=== PATIENT | male | born 1945 | race African-American/Black ===

== ENCOUNTER 2020-09-13 19:13 | Emergency (ER) | payer MEDICARE ==
[~2020-09-13] VITALS: Ht 182.9 cm; Wt 68.0 kg
--- NOTE | 2020-09-13 19:35 | NUR ---
Pt brought in by EMS. Pt's cousin called EMS, reports pt has had weakness. Pt c/o being unable to eat but reports he feels like he could eat now. Pt also complains of weakness, denies pain. Pt AAO x4.
[2020-09-13 19:57] VITALS: BP 124/81
[2020-09-13 20:50] LABS: HEMATOCRIT 25.7 % (42.0-52.0); HEMOGLOBIN 7.9 G/DL (14.2-18.0); MEAN CORPUSCULAR VOLUME 108 FL (80-99); PLATELET COUNT 76 K/UL (150-450); RED BLOOD COUNT 2.39 M/UL (4.70-6.10); RED CELL DISTRIBUTION WIDTH 16.1 % (11.6-14.8); WHITE BLOOD COUNT 3.8 K/UL (4.8-10.8)
[2020-09-13 21:01] LABS: INR 1.4 (0.9-1.1)
[2020-09-13 21:09] LABS: CREATININE 2.6 MG/DL (0.55-1.30); POTASSIUM 4.2 MMOL/L (3.5-5.1)
[2020-09-13 21:25] LABS: ALBUMIN 2.6 G/DL (3.4-5.0); ALBUMIN/GLOBULIN RATIO 0.7 (1.0-2.7); BILIRUBIN,TOTAL 1.8 MG/DL (0.2-1.0); CKMB 1.1 NG/ML (0.0-3.6)
[2020-09-13 21:26] LABS: BILIRUBIN,DIRECT 0.9 MG/DL (0.0-0.3)
[2020-09-13 22:29] LABS: BILIRUBIN, URINE NEGATIVE (NEGATIVE); GLUCOSE, URINE (UA) NEGATIVE (NEGATIVE); KETONES,URINE 1+ (NEGATIVE); LEUKOCYTE ESTERASE ,URINE 1+ (NEGATIVE); NITRITE,URINE NEGATIVE (NEGATIVE); PH,URINE 5 (4.5-8.0); PROTEIN,URINE NEGATIVE (NEGATIVE); UROBILINOGEN,URINE NORMAL MG/DL (0.0-1.0)
[2020-09-13 22:35] VITALS: BP_SYST 119; BP_SYST 143; BP_DIAS 69; BP_DIAS 88
[2020-09-13 22:46] LABS: APPEARANCE,URINE SLIGHTLY CLOUDY; COLOR,URINE YELLOW
--- NOTE | 2020-09-13 23:03 | Emergency Room Report ---
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 COVID-19 Screening: Negative COVID-19 COVID-19 Testing Source: na Nursing Documentation-PMH Hx Hypertension: Yes Physical Exam Vital Signs Date Time Temp Pulse Resp B/P (MAP) Pulse Ox O2 Delivery O2 Flow Rate FiO2 09/13/20 19:06 99.0 114 16 106/66 (79) 98 Room Air Medical Decision Making Diagnostic Impression: Primary Impression: Pancytopenia Additional Impressions: Failure to thrive Renal failure Hypernatremia ER Course This patient was evaluated in the context of the global COVID-19 pandemic, which necessitated consideration that the patient might be at risk for infection with the [id number] virus that causes COVID-19. Institutional protocols and algorithms that pertain to the evaluation of patients at risk for COVID-19 and the state of rapid change based on information released by multiple regulatory bodies including the CDC and federal and state organizations. These policies and algorithms were followed during the patient's care in the ED. Laboratory Tests Test 09/13/20 20:35 09/13/20 21:58 White Blood Count 3.8 K/UL (4.8-10.8) L Red Blood Count 2.39 M/UL (4.70-6.10) L Hemoglobin 7.9 G/DL (14.2-18.0) L Hematocrit 25.7 % (42.0-52.0) L Mean Corpuscular Volume 108 FL (80-99) H Mean Corpuscular Hemoglobin 33.0 PG (27.0-31.0) H Mean Corpuscular Hemoglobin Concent 30.7 G/DL (32.0-36.0) L Red Cell Distribution Width 16.1 % (11.6-14.8) H Platelet Count 76 K/UL (150-450) L Mean Platelet Volume 8.9 FL (6.5-10.1) Neutrophils (%) (Auto) % (45.0-75.0) Lymphocytes (%) (Auto) % (20.0-45.0) Monocytes (%) (Auto) % (1.0-10.0) Eosinophils (%) (Auto) % (0.0-3.0) Basophils (%) (Auto) % (0.0-2.0) Differential Total Cells Counted 100 Neutrophils % (Manual) 66 % (45-75) Lymphocytes % (Manual) 30 % (20-45) Monocytes % (Manual) 2 % (1-10) Eosinophils % (Manual) 2 % (0-3) Basophils % (Manual) 0 % (0-2) Band Neutrophils 0 % (0-8) Platelet Estimate Decreased L Platelet Morphology Normal Hypochromasia 1+ Anisocytosis 1+ Macrocytosis 1+ Prothrombin Time 14.6 SEC (9.30-11.50) H Prothrombin Time INR 1.4 (0.9-1.1) H Activated Partial Thromboplast Time 31 SEC (23-33) D-Dimer 1.18 mg/L FEU (0.00-0.49) H Sodium Level 150 MMOL/L (136-145) H Potassium Level 4.2 MMOL/L (3.5-5.1) Chloride Level 117 MMOL/L (98-107) H Carbon Dioxide Level 24 MMOL/L (21-32) Anion Gap 9 mmol/L (5-15) Blood Urea Nitrogen 30 mg/dL (7-18) H Creatinine 2.6 MG/DL (0.55-1.30) H Estimated Glomerular Filtration Rate 29.2 mL/min (>60) Glucose Level 120 MG/DL (74-106) H Lactic Acid Level 1.50 mmol/L (0.4-2.0) Calcium Level 9.0 MG/DL (8.5-10.1) Ferritin 1433 NG/ML (8-388) H Total Bilirubin 1.8 MG/DL (0.2-1.0) H Direct Bilirubin 0.9 MG/DL (0.0-0.3) H Aspartate Amino Transferase (AST) 42 U/L (15-37) H Alanine Aminotransferase (ALT) 52 U/L (12-78) Alkaline Phosphatase 89 U/L (46-116) Lactate Dehydrogenase 138 U/L (81-234) Total Creatine Kinase 37 U/L (26-308) Creatine Kinase MB 1.1 NG/ML (0.0-3.6) Creatine Kinase MB Relative Index 2.9 Troponin I 0.021 ng/mL (0.000-0.056) C-Reactive Protein, Quantitative 0.8 mg/dL (0.00-0.90) Pro-B-Type Natriuretic Peptide 864 pg/mL (0-125) H Total Protein 6.1 G/DL (6.4-8.2) L Albumin 2.6 G/DL (3.4-5.0) L Globulin 3.5 g/dL Albumin/Globulin Ratio 0.7 (1.0-2.7) L Lipase 26 U/L (73-393) L Urine Color Yellow Urine Appearance Slightly cloudy Urine pH 5 (4.5-8.0) Urine Specific [place] 1.020 (1.005-1.035) Urine Protein Negative (NEGATIVE) Urine Glucose (UA) Negative (NEGATIVE) Urine Ketones 1+ (NEGATIVE) H Urine Blood Negative (NEGATIVE) Urine Nitrite Negative (NEGATIVE) Urine Bilirubin Negative (NEGATIVE) Urine Urobilinogen Normal MG/DL (0.0-1.0) Urine Leukocyte Esterase 1+ (NEGATIVE) H Urine RBC 0 /HPF (0 - 0) Urine WBC 5-10 /HPF (0 - 0) H Urine Squamous Epithelial Cells Occasional /LPF Urine Bacteria Few /HPF (NONE) EKG Diagnostic Results Rate: tachycardiac Rhythm: other - s.tachycardia ST Segments: no acute changes Rhythm Strip Diag. Results EP Interpretation: yes Rate: 110's Rhythm: no PVC's, no ectopy, other - S.tachycardia Chest X-Ray Diagnostic Results Chest X-Ray Diagnostic Results : Chest X-Ray Ordered: Yes # of Views/Limited/Complete: 1 View Indication: Other EP Interpretation: Yes Interpretation: no consolidation, no pneumothorax, other - ? multiple nodules Impression: No acute disease Electronically Signed by: Zayra Ji DO Last Vital Signs Date Time Temp Pulse Resp B/P (MAP) Pulse Ox O2 Delivery O2 Flow Rate FiO2 09/13/20 22:35 99.0 106 13 143/88 100 Room Air Referrals: [facility] (PCP) Zayra Ji DO Sep 13, 2020 23:03
[2020-09-13 23:27] VITALS: BP 129/88
--- NOTE | 2020-09-13 23:27 | NUR ---
ED Nurse Note: Pt was provided with a juice. Pt has no new needs at this time.
--- NOTE | 2020-09-13 23:36 | NUR ---
ED Nurse Note: Jessica Banks [phone] - pts cousin
--- NOTE | 2020-09-14 01:26 | NUR ---
ED Nurse Note: TFR INFO: [facility] DR LUPE MACKEY RM: TELE [id number] NURSE # [phone] ALS TRANSFER: ETA 2AM
[2020-09-14 01:52] VITALS: BP 124/85
--- NOTE | 2020-09-14 01:53 | NUR ---
ED Nurse Note: Pt is sleeping, responds to verbal commands, no new needs identified at this time. Attempted to call report to [facility], no answer.
--- NOTE | 2020-09-14 02:30 | NUR ---
ED Nurse Note: Called [facility] to give report at [phone] (3rd time to call) and no answer. Called [facility] and spoke to Myron to report incident. Will callback for report.
--- NOTE | 2020-09-14 02:34 | NUR ---
ER DISCHARGE NOTE: EMS arrived to get pt. Unable to reach [facility] for report. Report relayed to EMS. [facility] to call back for report.
[2020-09-14 02:42] VITALS: BP 112/81
--- NOTE | 2020-09-14 03:00 | NUR ---
ED Nurse Note: Spoke to KIRBY Martinez at [facility] for report.
--- NOTE | 2020-09-14 16:17 | Cardiology Report ---
APPROVED REPORT EKG Measurement Heart [id number] MD [id number] <Conclusion> Sinus rhythm with premature atrial complexes Nonspecific T wave abnormality Abnormal ECG
--- NOTE | 2020-09-14 16:49 | Diagnostic Imaging Report ---
Indication: Shortness of breath Technique: One view of the chest Comparison: none Findings: There is atelectasis in the left infrahilar region. There is a calcified nodule right lung base. Lungs and pleural spaces otherwise clear. The heart size is normal. Impression: Left basilar atelectasis. No acute process otherwise Evidence of old granulomatous disease
== END 2020-09-14 02:34 | disposition short-term general hospital (02) ==
LOC: EDBD 19:13 → EMR 20:31
DX: D61.818 Other pancytopenia (principal); R62.7 Adult failure to thrive; J96.90 Respiratory failure, unspecified, unspecified whether with hypoxia or hypercapnia; E87.0 Hyperosmolality and hypernatremia; I10 Essential (primary) hypertension; R00.0 Tachycardia, unspecified
CPT/HCPCS: 36415; 71045; 80053; 81003; 82248; 82550; 82553; 82728; 83605; 83615; 83690; 83880; 84484; 85007; 85025; 85379; 85610; 85730; 86140; 87040; 93005; 96360; 99284; U0004

== ENCOUNTER 2020-09-29 22:05 | Inpatient (IN) | payer MEDICARE ==
[~2020-09-29] VITALS: Ht 182.9 cm; Wt 74.8 kg
--- NOTE | 2020-09-29 22:10 | NUR ---
ED Nurse Note: Pte brought to ED rescue 26 , from the [facility] , with the c/o ALOC, per EMS pte last known well time 1600. The facility called 911 due to pte desatted to 80% on RA. At time of pte arrival, pte was being Ambu-bagged due to agonal breathing. Pte placed in property assessment monitor and was found to be in respiratory arrest . see code blue sheet.
--- NOTE | 2020-09-29 22:12 | NUR ---
ED Nurse Note: Pte intubated 7.5 tube 25 cm medial site
[2020-09-29] MEDS ORDERED: Levophed 4mg/4mL Inj IV ONE (22:14)
[2020-09-29 22:40] VITALS: BP 156/88
--- NOTE | 2020-09-29 22:40 | Emergency Room Report ---
History of Present Illness General Chief Complaint: Dyspnea/Respdistress Source: EMS Present Illness HPI 75-year-old male with past medical history of protein calorie malnutrition, thalassemia, hypertension, chronic pancreatitis, dyslipidemia, atherosclerosis, GERD, acquired complex renal cyst, peripheral neuropathy, history of adenomatous colonic polyps, major depression presents from [facility] for altered mental status. Patient has GCS of 8, agonal respirations and is being bagged by EMS. No pulse found on arrival therefore history limited 2/2 clinical condition. According to staff, the patient was noted to be altered beginning at 4 PM however there was a delay in transport to the emergency department. According to paperwork, he had been admitted to the SNF for rehab after BMBx for pancytopenia and failure to thrive/anorexia/weight loss. POLST FORM NOTED DATING 09/16/20 FOR DNR/DNI BUT NO MD SIGNATURE, THEREFORE INCOMPLETE AND INVALID. The patient's symptoms were gradual onset, severity was severe, duration since 4pm . Quality: Unable to obtain Past medical history: protein calorie malnutrition, thalassemia, hypertension, chronic pancreatitis, dyslipidemia, atherosclerosis, GERD, acquired complex renal cyst, peripheral neuropathy, history of adenomatous colonic polyps, major depression Past surgical history: UTO Smoking: UTO Alcohol use: UTO Drug use: UTO Review of systems: UTO 2/2 CLINICAL STATUS 14 point Review of Systems is otherwise negative except per HPI Physical Exam: GENERAL: Severe distress, agonal respirations, unresponsive GCS 8 EYES: Pupils unreactive. Conjunctiva clear. ENT: External nose and ear appear normal. Oropharynx clear. Head atraumatic. NECK: No thyromegaly. No midline tenderness. LUNGS: Agonal respirations. Coarse breath sounds bilaterally. CARDIAC: No detectable pulse. ABDOMEN: Soft, nontender, and nondistended. No rebound/guarding. No hepatosplenomegaly. No palpable mass. Soiled diaper. No melena or hematochezia visible MSK: Poor muscle tone, contractures with rigidity in extremities. Extremities without asymmetric deformity or swelling. NEUROLOGIC: Obtunded Does not follow commands for motor and sensory exam. No truncal ataxia. GCS 2-4-2, protecting airway, intact gag reflex. SKIN: Warm and dry. No cyanosis or urticaria present. - COORDINATION OF CARE Case was discussed with: Patient , Patient's physician Any labs and imaging that were ordered were interpreted as part of the medical decision making: Medical Decision Making/Plan: Differential diagnosis includes sepsis / severe sepsis /septic shock , cellulitis UTI, pneumonia , viral syndrome, gastroenteritis, emergent abdom inal infection, among others. Patient arrived in severe distress, GCS 8, agonal respirations, hypoxic at Sp02 70% with thready pulse. He immediately went pulseless on transfer from [facility] to [facility], therefore high quality CPR was initiated and performed via ACLS guidelines. On the monitor tech, patient was noted to be in pulseless V. tach. He achieved ROSC after the administration of amiodarone, epinephrine, bicarb, calcium, magnesium. Please see nursing documentation for full list of meds given. Patient was intubated with RSI (etomidate, rocuronium) for respiratory failure, and started on levophed drip via R IJ central line for vasopressor support. Propofol gtt was used for sedation. Bedside ECHO showed depressed EF and ventricular ectopy. No radiographic evidence of tamponade or pericardial effusion. EKG showed sinus tachycardia. Labs showed lactic/metabolic acidosis, renal failure, and pancytopenia. Patient also noted to have BNP 2290 but trop negative x 1. CXR showed bibasilar atx vs effusions vs PNA. COVID rapid antigen was negative. Sepsis bundle initiated on arrival. Blood cultures, lactate drawn. Lactate was grossly elevated , patient was not given 30 cc/kg IV fluids by bolus due to refusal and hx of ESRD. Empiric antibiotics were started. Patient will be admitted to the hospital for further care and evaluation. Spoke with Dr. Rosenbaum [facility] authorization #[id number] I spoke with Dr. Hutton, and reviewed the patients presentation, workup, results, and treatment. They will admit the patient for further care and evaluation, and assume care of the patient at this time. Sepsis re-eval at 0000: Better signs of perfusion. 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 Time is exclusive of separately billable procedures. Time includes: direct patient care, continuous monitoring and multiple patient reassessment, coordination of patient care, review of patient's medical records, medical consultation, family consultation regarding treatment decisions and documentation of patient care. Ultrasound Ultrasound : Consent: Emergent Ultrasound: normal Patient Tolerated: Well Complications: None Central Line Progress Central Line Placement by me: Patient consented, sterilely draped, full prep, gown, glove, mask, time out performed. Maximal sterile barrier technique used. Anesthesia: 1% lidocaine locally Location: Right internal jugular Device: Multiple lumen Technique: Seldinger technique. Secured with suture. Results: Venous return from all ports with easy saline flush. No complications. Compl : None Guide wire was retrieved and disposed of. ED Procedural Ultrasound by me: Central line placed by me using concurrent ultrasound guidance. Real time image archived in the medical record confirms vascular anatomy. CPR/Code Blue CPR/Code Blue Narrative Cardiopulmonary Resuscitation by me: See code documentation for specific details. ACLS and BLS were performed with high quality chest compressions and minimal interruptions. Any reversible causes were assessed and treated. Indication: Pulseless/CODE BLUE Informed consent: Patient unable to consent and no DNR status on record Procedure: Cardiac compressions were performed by staff in order to sustain blood flow under my direct supervision. The patient was ventilated and oxygena sharri. The patient received appropriate ACLS measures and they were repeated as necessary. Patient noted to be in pulseless vtach on the tele monitor. Gave epi, bicarb, calcium, Mg, amio with +ROSC. Bedside ECHO showed ++Vtach. No pericardial effusion or tamponade Findings: Patient had ++ return of spontaneous circulation Intubation Progress Procedure Note: Endotracheal Intubation by me: Pre assessment performed. See preceding note for details. Pre-oxygenation performed with 100% oxygen RSI: Performed w/o complication or hypoxic events. Medications as ordered. Emergency Endotracheal Intubation: Consent unable to be obtained due to emergent nature of procedure and airway assessment this patient was prepared for end otracheal intubation with preoxygenation and airway positioning. The patient underwent rapid sequence induction and endotracheal intubation utilizing direct visualization laryngoscopy. The endotracheal tube was placed between the vocal cords and placement was confirmed with fogging of the tube, end title CO2, and equal bilateral chest rise as well as absence of borborygmi over the epigastrium. Chest x-ray was obtained for final confirmation. There were no complications. Blade: VL 4 ET Tube: 7.5 cm Depth: 23 cm at the lip Complications: No hypoxic events or bradycardia Intubation confirmed by colorimetric CO2, equal breath sounds, quiet over the stomach. Intubated with full C spine precautions, with the assistance of juvenile justice officer. Medical Decision Making Diagnostic Impression: Primary Impression: Respiratory arrest Additional Impressions: Cardiopulmonary arrest Septic shock Renal failure Pancytopenia Lactic acidosis Pneumonia Respiratory failure Hypoxia Failure to thrive EKG Diagnostic Results Troponin ordered: Yes When was troponin ordered?: Sep 30, 2020 BHARGAVI Scribe Text 12-lead EKG (interpreted by ) Time: 1921 Indication: Rhythm analysis Tracing visualized and Interpreted by me. Rhythm: Atrial fibrillation Rate: 126 bpm QTc: 443 A. fib RVR Morphology: No_significant_ST_elevations_or_depressions, No STEMI Impression: Atrial fibrillation with RVR. ST depressions in inferior leads, V5 and V6 Rhythm Strip Diag. Results Rhythm Strip Time: 00:23 EP Interpretation: yes Rate: 89 Rhythm: NSR, no PVC's, no ectopy Chest X-Ray Diagnostic Results Chest X-Ray Diagnostic Results : PA Scribe Text Chest X-Ray: Views: [ 1 ] view(s) Indication: Cardiopulmonary arrest Findings: Normal heart size. Mediastinum normal. Bibasilar infiltrate. Impression: Bibasilar atelectasis versus pneumonia. Right IJ catheter. No pneumothorax. ET tube positioned above the cathy. The X-ray(s) were independently viewed and interpreted contemporaneously Electronically signed by Erica helton DO Last Vital Signs Date Time Temp Pulse Resp B/P (MAP) Pulse Ox O2 Delivery O2 Flow Rate FiO2 09/29/20 22:09 118 12 103/64 (77) 100 Ambu-Bag Disposition: ADMITTED INPATIENT Admit Decision Time: 22:50 Condition: Stable Erica Ratliff D.O. Sep 29, 2020 22:40
[2020-09-29] MEDS ORDERED: Vancomycin 1 GM in NS 275 ML IV ONE (22:45)
[2020-09-29] MEDS ORDERED: Cefepime HCl 2 GM in NS 110 ML IV ONE (22:45)
[2020-09-29 23:10] VITALS: BP 119/82
[2020-09-29 23:21] LABS: ANION GAP 14 mmol/L (5-15); BLOOD UREA NITROGEN 45 mg/dL (7-18); CALCIUM 10.6 MG/DL (8.5-10.1); CARBON DIOXIDE 17 MMOL/L (21-32); CHLORIDE 111 MMOL/L (98-107); CREATININE 5.7 MG/DL (0.55-1.30); POTASSIUM 4.3 MMOL/L (3.5-5.1); SODIUM 142 MMOL/L (136-145)
[2020-09-29 23:23] LABS: INR 1.7 (0.9-1.1)
[2020-09-29 23:36] LABS: HEMOGLOBIN 10.2 G/DL (14.2-18.0); MEAN CORPUSCULAR VOLUME 95 FL (80-99); PLATELET COUNT 70 K/UL (150-450); RED BLOOD COUNT 3.35 M/UL (4.70-6.10); RED CELL DISTRIBUTION WIDTH 17.9 % (11.6-14.8); WHITE BLOOD COUNT 10.5 K/UL (4.8-10.8)
[2020-09-29 23:40] LABS: ALANINE AMINOTRANSFERASE 30 U/L (12-78); ALBUMIN 1.9 G/DL (3.4-5.0); ALBUMIN/GLOBULIN RATIO 0.5 (1.0-2.7); ALKALINE PHOSPHATASE 98 U/L (46-116); ASPARTATE AMINO TRANSFERASE 32 U/L (15-37); BILIRUBIN,TOTAL 0.8 MG/DL (0.2-1.0); CREATINE KINASE 49 U/L (26-308)
[2020-09-29] MEDS: propofoL 1,000mg/100ml 100 ML IV SCH (23:45)
[2020-09-30] VITALS (45 sets, daily range): BP systolic 79–180; BP diastolic 40–88
--- NOTE | 2020-09-30 00:15 | NUR ---
ED Nurse Note: received order for propofol however patient still unresponsive at this time due to pain, per ERMD. no need to transfuse propofol
[2020-09-30 00:18] LABS: FERRITIN > 2000 NG/ML (8-388)
--- NOTE | 2020-09-30 02:00 | NUR ---
TRANSFER TO FLOOR: Patient transferred to ICU as ordered, per Dr. Hutton Report given to [facility] OR[facility]
--- NOTE | 2020-09-30 02:15 | NUR ---
NURSE NOTES: Patient transferred from ER to ICU. Patient noted to be orally intubated 7.5/24 cm at lower lip line. Patient mechanically ventilated AC 16/500tv, 70% Fio2 and peep of 5. HR on the monitor is 96 NSR with PVC's. Right IJ TLC noted with Levophed gtt infusing at 22mcg/min and Vanco abx. SpO2 at 96%. Patient is non-responsive to painful stimuli, pupils non-reactive to light. Airborne precautions noted. left AC 18g noted SL. Skin noted to be intact. Admission orders received from Dr. Hutton.
[2020-09-30] MEDS ORDERED: Acetaminophen 650mg/20.3ml NG PRN (02:30)
[2020-09-30] MEDS: D5 1/2NS 1,000 ML IV SCH ×3 (03:21→17:00)
[2020-09-30] MEDS ORDERED: Levophed 4mg/4mL Inj IV ONE (03:26)
--- NOTE | 2020-09-30 04:00 | NUR ---
NURSE NOTES: complete bed bath core care and back care done
[2020-09-30] MEDS ORDERED: Heparin 5000 units/ml inj SUBQ SCH (06:00)
[2020-09-30] MEDS ORDERED: LATANOPROST2.5 ML BOTH EYES (06:19)
[2020-09-30] MEDS ORDERED: SENNA PLUS 8.61 EACH PO (06:19)
[2020-09-30] MEDS ORDERED: SIMVASTATIN20 MG ORAL (06:19)
[2020-09-30] MEDS ORDERED: OMEPRAZOLE20 M2 ORAL (06:19)
[2020-09-30] MEDS ORDERED: DOCUSATE SODIU250 MG ORAL (06:19)
[2020-09-30] MEDS ORDERED: ACETAMINOPHEN325 M1 ORAL (06:19)
[2020-09-30] MEDS ORDERED: FOLIC ACID1 MG ORAL (06:19)
[2020-09-30 06:22] LABS: HEMATOCRIT 38.4 % (42.0-52.0); HEMOGLOBIN 11.8 G/DL (14.2-18.0); MEAN CORPUSCULAR VOLUME 99 FL (80-99); PLATELET COUNT 76 K/UL (150-450); RED BLOOD COUNT 3.87 M/UL (4.70-6.10); WHITE BLOOD COUNT 11.3 K/UL (4.8-10.8)
[2020-09-30 06:45] LABS: ALBUMIN 2.1 G/DL (3.4-5.0); ALBUMIN/GLOBULIN RATIO 0.6 (1.0-2.7); BILIRUBIN,TOTAL 1.3 MG/DL (0.2-1.0); CALCIUM 9.8 MG/DL (8.5-10.1); CREATININE 6.1 MG/DL (0.55-1.30); PHOSPHORUS 6.1 MG/DL (2.5-4.9)
[2020-09-30 06:46] LABS: BILIRUBIN,DIRECT 0.7 MG/DL (0.0-0.3)
--- NOTE | 2020-09-30 07:30 | NUR ---
NURSE HAND-OFF REPORT: Latest Vital Signs: Temperature 93.5 , Pulse 81 , B/P 106 /73 , Respiratory Rate 24 , O2 SAT 99 , Mechanical Ventilator, O2 Flow Rate 100.0 . Vital Sign Comment: EKG Rhythm: Sinus Rhythm Rhythm change?: N MD Notified?: - MD Response: Latest Carty Fall Score: 50 Fall Risk: High Risk Safety Measures: Call light Within Reach, Bed Alarm Zone 2, Side Rails Side Rails x2, Bed position Low and Locked. Fall Precautions: Yellow Socks Yellow Gown Door Sign Patient Fall Education Report given to kwaku clement using sbar .
--- NOTE | 2020-09-30 08:53 | NUR ---
RD ASSESSMENT & RECOMMENDATIONS SEE CARE ACTIVITY FOR COMPLETE ASSESSMENT DAILY ESTIMATED NEEDS: Needs based on Critical care 74.2kg 22-28 kcals/kg 5202-4166 total kcals 1.2-2 g protein/kg 89-148 g total protein 25-30 mL/kg 7215-9777 total fluid mLs NUTRITION DIAGNOSIS: Swallowing difficulty r/t respiratory arrest as evidenced by pt intubated, on pressor support, ICU status. ENTERAL NUTRITION RECOMMENDATIONS: As able NEPRO @40ml/hr x24 hrs to provide 960ml, 1728 kcal, 78g pro, 698ml free H2O -When stable for feeds rec renal formula at this time d/t increasing K and phos. -obtain GI access, initiate Nepro @20ml/hr for 6 hrs, advance as tolerated 10ml/hr 2q4-6 hrs to goal -When tolerating TF at goal, add prosource 1 pack BID to better meet est pro needs. -Flush per HOB over 30 degrees. ----> If hemodynamically unstable, rec trophic feeds of Nepro @10ml/hr to maintain gut integrity. ADDITIONAL RECOMMENDATIONS: 1) F/up w/ H&P 2) Maintain D5 IV hydration while NPO 3) Maintain calibrated bed scale wts 4) Non oral feeds when stable
--- NOTE | 2020-09-30 08:59 | Consultation ---
History of Present Illness General Date patient seen: Sep 30, 2020 Chief Complaint: Dyspnea/Respdistress Reason for Consultation: Sepsis Present Illness HPI Mr. Vargas is a 75 yo male with PMHx of failure to thrive, HTN, thalassemia, pancytopenia, HLD, Depression who was sent to the ED from his [facility] for [facility]. Per ED noted they noted that he had become encephalopathic about 4pm on the day of admit. In the ED he had agonal breathing and was intubated. He was afebrile with no leukocytosis. CXR showed LLL atelectasis and he had lactate of 7. He had a code blue in the ICU as he was found pulseless. Today his WBCS are 11, he is in the ICU on Levophed. ID was consulted for sepsis PMHx/PSHx Failure to thrive HTN Thalassemia Pancytopenia HLD Depression Adenomatous colonic polyps SocHx Lives in a chcf FamHx Unable to obtain Allergies: Coded Allergies: No Known Allergies (Unverified , 09/13/20) Medication History Scheduled Docusate Sodium* (Docusate Sodium*), 250 MG ORAL TWICE A DAY, (Reported) Folic Acid* (Folic Acid*), 1 MG ORAL DAILY, (Reported) Latanoprost* (Xalatan*), 1 DROP BOTH EYES BEDTIME, (Reported) Omeprazole (Omeprazole), 20 MG ORAL DAILY, (Reported) Simvastatin (Zocor), 20 MG ORAL BEDTIME, (Reported) Scheduled PRN Acetaminophen* (Acetaminophen 325MG Tablet*), 650 MG ORAL Q4H PRN for , (Reported) Miscellaneous Medications Sennosides/Docusate Sodium (Senna Plus 8.6-50 mg Tablet), 1 EACH PO, (Reported) Patient History Healthcare decision maker Resuscitation status Advanced Directive on File Review of Systems ROS Narrative Unable to obtain Physical Exam Last 24 Hour Vital Signs Date Time Temp Pulse Resp B/P (MAP) Pulse Ox O2 Delivery O2 Flow Rate FiO2 09/30/20 07:45 82 27 103/72 (82) 98 09/30/20 07:31 86 27 60 09/30/20 07:30 83 26 109/76 (87) 99 09/30/20 07:15 81 25 106/73 (84) 99 09/30/20 07:00 106/73 09/30/20 07:00 81 25 102/66 (78) 99 09/30/20 06:45 81 24 105/77 (86) 99 09/30/20 06:30 82 20 09/30/20 06:30 80 24 104/76 (85) 99 09/30/20 06:15 79 24 110/79 (89) 99 09/30/20 06:00 81 24 115/79 (91) 99 09/30/20 06:00 105/56 09/30/20 05:45 80 23 107/79 (88) 99 09/30/20 05:30 80 23 107/81 (90) 99 09/30/20 05:15 93.5 79 23 106/76 (86) 99 09/30/20 05:00 106/76 09/30/20 05:00 79 23 115/79 (91) 99 09/30/20 04:49 82 23 60 09/30/20 04:30 81 22 118/85 (96) 99 09/30/20 04:15 81 20 108/82 (91) 100 09/30/20 04:00 Mechanical Ventilator 100.0 09/30/20 04:00 81 19 113/80 (91) 100 09/30/20 04:00 108/82 09/30/20 03:45 82 18 119/84 (96) 94 09/30/20 03:30 81 19 117/83 (94) 85 09/30/20 03:15 82 18 122/85 (97) 93 09/30/20 03:00 81 18 127/88 (101) 95 09/30/20 03:00 122/85 09/30/20 02:49 Mechanical Ventilator 100.0 09/30/20 02:45 82 18 117/82 (94) 94 09/30/20 02:35 83 16 100 Mechanical Ventilator 70 09/30/20 02:30 84 19 106/72 (83) 95 09/30/20 02:30 117/83 09/30/20 02:28 83 16 70 09/30/20 02:24 91.3 84 18 150/69 (96) 99 09/30/20 02:15 85 09/30/20 02:15 70 09/30/20 02:00 97.1 88 18 116/88 100 Mechanical Ventilator 70 09/30/20 01:00 105/62 2/25/21 00:46 88 16 70 09/29/20 23:54 98/68 09/29/20 23:49 80 09/29/20 23:15 107/84 09/29/20 23:10 96.8 100 16 119/82 100 Mechanical Ventilator 100 09/29/20 23:10 97.1 16 100 Mechanical Ventilator 09/29/20 23:00 119/82 09/29/20 22:45 140/80 09/29/20 22:40 156/88 09/29/20 22:40 96.8 115 16 156/88 100 Mechanical Ventilator 100 09/29/20 22:35 160/109 09/29/20 22:32 120 16 100 09/29/20 22:30 62/42 09/29/20 22:10 118 12 Ambu-Bag 09/29/20 22:09 118 12 103/64 (77) 100 Ambu-Bag Intake and Output 09/29/20 09/30/20 19:00 07:00 Intake Total 1506.25 ml Output Total 5 ml Balance 1501.25 ml IV Total 1506.25 ml Output Urine Total 5 ml Laboratory Tests Test 09/29/20 22:37 09/29/20 22:50 09/30/20 00:45 09/30/20 04:44 Arterial Blood pH 7.271 (7.350-7.450) Arterial Blood Partial Pressure CO2 37.4 mmHg (35.0-45.0) Arterial Blood Partial Pressure O2 155.9 mmHg (75.0-100.0) H Arterial Blood HCO3 16.8 mmol/L (22.0-26.0) *L Arterial Blood Oxygen Saturation 98.2 % (95-100) Arterial Blood Base Excess -9.3 (-2-2) *L Onesimo Test Positive White Blood Count 10.5 K/UL (4.8-10.8) 11.3 K/UL (4.8-10.8) H Red Blood Count 3.35 M/UL (4.70-6.10) L 3.87 M/UL (4.70-6.10) L Hemoglobin 10.2 G/DL (14.2-18.0) L 11.8 G/DL (14.2-18.0) L Hematocrit 32.0 % (42.0-52.0) L 38.4 % (42.0-52.0) L Mean Corpuscular Volume 95 FL (80-99) 99 FL (80-99) Mean Corpuscular Hemoglobin 30.6 PG (27.0-31.0) 30.6 PG (27.0-31.0) Mean Corpuscular Hemoglobin Concent 32.1 G/DL (32.0-36.0) 30.8 G/DL (32.0-36.0) L Red Cell Distribution Width 17.9 % (11.6-14.8) H 18.0 % (11.6-14.8) H Platelet Count 70 K/UL (150-450) L 76 K/UL (150-450) L Mean Platelet Volume 10.1 FL (6.5-10.1) 9.5 FL (6.5-10.1) Neutrophils (%) (Auto) % (45.0-75.0) % (45.0-75.0) Lymphocytes (%) (Auto) % (20.0-45.0) % (20.0-45.0) Monocytes (%) (Auto) % (1.0-10.0) % (1.0-10.0) Eosinophils (%) (Auto) % (0.0-3.0) % (0.0-3.0) Basophils (%) (Auto) % (0.0-2.0) % (0.0-2.0) Prothrombin Time 17.6 SEC (9.30-11.50) H Prothromb Time International Ratio 1.7 (0.9-1.1) H Activated Partial Thromboplast Time 43 SEC (23-33) H Sodium Level 142 MMOL/L (136-145) 140 MMOL/L (136-145) Potassium Level 4.3 MMOL/L (3.5-5.1) 5.0 MMOL/L (3.5-5.1) Chloride Level 111 MMOL/L (98-107) H 109 MMOL/L (98-107) H Carbon Dioxide Level 17 MMOL/L (21-32) L 16 MMOL/L (21-32) L Anion Gap 14 mmol/L (5-15) 15 mmol/L (5-15) Blood Urea Nitrogen 45 mg/dL (7-18) H 43 mg/dL (7-18) H Creatinine 5.7 MG/DL (0.55-1.30) H 6.1 MG/DL (0.55-1.30) H Estimat Glomerular Filtration Rate 11.8 mL/min (>60) 10.9 mL/min (>60) Glucose Level 127 MG/DL (74-106) H 174 MG/DL (74-106) H Lactic Acid Level 3.90 mmol/L (0.4-2.0) H 5.20 mmol/L (0.66-2.22) H 7.10 mmol/L (0.4-2.0) H Calcium Level 10.6 MG/DL (8.5-10.1) H 9.8 MG/DL (8.5-10.1) Phosphorus Level 5.0 MG/DL (2.5-4.9) H 6.1 MG/DL (2.5-4.9) H Magnesium Level 3.1 MG/DL (1.8-2.4) H 2.3 MG/DL (1.8-2.4) Ferritin > 2000 NG/ML (8-388) H Total Bilirubin 0.8 MG/DL (0.2-1.0) 1.3 MG/DL (0.2-1.0) H Aspartate Amino Transf (AST/SGOT) 32 U/L (15-37) 37 U/L (15-37) Alanine Aminotransferase (ALT/SGPT) 30 U/L (12-78) 36 U/L (12-78) Alkaline Phosphatase 98 U/L (46-116) 104 U/L (46-116) Lactate Dehydrogenase 209 U/L (81-234) Total Creatine Kinase 49 U/L (26-308) Troponin I 0.049 ng/mL (0.000-0.056) C-Reactive Protein, Quantitative 2.6 mg/dL (0.00-0.90) H Pro-B-Type Natriuretic Peptide 2290 pg/mL (0-125) H Total Protein 5.4 G/DL (6.4-8.2) L 5.9 G/DL (6.4-8.2) L Albumin 1.9 G/DL (3.4-5.0) L 2.1 G/DL (3.4-5.0) L Globulin 3.5 g/dL 3.8 g/dL Albumin/Globulin Ratio 0.5 (1.0-2.7) L 0.6 (1.0-2.7) L Triglycerides Level 67 MG/DL (30-150) Lipase 49 U/L (73-393) L Neutrophils % (Manual) Pending Lymphocytes % (Manual) Pending Platelet Estimate Pending Platelet Morphology Pending Direct Bilirubin 0.7 MG/DL (0.0-0.3) H Microbiology Date/Time Source Procedure Growth Status 09/30/20 02:33 Rectum Received Height (Feet): 6 Height (Inches): 8.00 Weight (Pounds): 165 Medications Current Medications Medications (Trade) Dose Ordered Sig/Alfredo Route PRN Reason Start Time Stop Time Status Last Admin Dose Admin Acetaminophen (Tylenol) 650 mg EVERY 6 HOURS PRN NG Temp >100.5 09/30/20 02:30 10/30/20 02:29 Chlorhexidine Gluconate (Babita-Hex 2%) 1 applic DAILY@2000 TOPIC 09/30/20 20:00 12/29/20 19:59 Dextrose (Dextrose 50%) 25 ml Q30M PRN IV Hypoglycemia 09/30/20 02:30 12/29/20 02:29 Dextrose (Dextrose 50%) 50 ml Q30M PRN IV Hypoglycemia 09/30/20 02:30 12/29/20 02:29 Dextrose/Sodium Chloride 1,000 ml @ 75 mls/hr [id number] IV 09/30/20 03:30 10/30/20 03:29 09/30/20 03:42 Heparin Sodium (Porcine) (Heparin 5000 units/ml) 5,000 units EVERY 8 HOURS SUBQ 09/30/20 06:00 11/14/20 05:59 UNV Norepinephrine Bitartrate 8 mg/ Dextrose 250 ml @ 0 mls/hr Q24H IV 09/30/20 02:30 10/03/20 02:29 09/30/20 02:30 Piperacillin Sod/ Tazobactam Sod 3.375 gm/Sodium Chloride 110 ml @ 27.5 mls/hr Q12HR IVPB 09/30/20 09:00 10/07/20 08:59 Propofol 100 ml @ 1.769 mls/ hr Q12H IV 09/29/20 23:45 10/01/20 23:31 Vancomycin HCl (Vanco pharmacy to dose) 1 ea DAILY PRN MISC Per rx protocol 09/30/20 02:30 10/30/20 02:29 UNV Objective Narrative Gen: Intubated on Vent HEENT: NCAT, MMM, No scleral icterus NECK: Supple, No LAD HEART: RRR, S1, S2 Pulm: CTAB, No W No accessory mescle use Abd: Soft, ND, + BS : Differed Neuro: Not following SKIN: Exposed skin normal in color no rash noted Assessment/Plan Assessment/Plan: 75 yo male with PMHx of failure to thrive, HTN, thalassemia, pancytopenia, HLD, Depression who was sent to the ED from his [facility] for AMS. Septic Shock Unclear source CXR 09/29/20 - Left basilar atelectasis. No acute process otherwise. Evidence of old granulomatous disease Leukocytosis No fever AMS Lactic acidosis Failure to thrive HTN Thalassemia Pancytopenia HLD Depression Adenomatous colonic polyps PLAN - Continue Zosyn #1 and Vancomycin #1 - f/u COVID 19 Ag screen - f/u Cultures - Consider CT head to r/o bleed or stroke - but will differ to primary MD - Monitor CBC and Temps Thank you for this consult. [facility] will continue to follow Mr. Vargas while he in hospitalized. Yoel Ricketts MD Sep 30, 2020 08:59
[2020-09-30] MEDS: Piperacillin/Tazobactam 3.375 GM in NS 110 ML IVPB SCH ×2 (09:11→21:17)
--- NOTE | 2020-09-30 09:29 | NUR ---
RADIOLOGY DEPT., CHEST AND ABDOMEN (N/GT [facility]) X-RAYS COMPLETED.-P.DYE
[2020-09-30] MEDS ORDERED: Hydrocortisone 100mg Inj IV SCH (10:00)
--- NOTE | 2020-09-30 10:20 | Consultation ---
Consult Note Consult Note I am asked to evaluate the patient at the request of Dr. Hutton for renal failure Patient seen in ICU. Discussed with RN. Patient on max pressors and hypotensive. Emergency room note: Chief Complaint: Dyspnea/Respdistress 75-year-old male with past medical history of: Protein calorie malnutrition, thalassemia, hypertension, chronic pancreatitis, dyslipidemia, atherosclerosis, GERD, acquired complex renal cyst, peripheral neuropathy, history of adenomatous colonic polyps, major depression, presents from [facility] for altered mental status. Patient has GCS of 8, agonal respirations and is being bagged by EMS. No pulse found on arrival therefore history limited 2/2 clinical condition. According to staff, the patient was noted to be altered beginning at 4 PM however there was a delay in transport to the emergency department. According to paperwork, he had been admitted to the [facility] for rehab after [facility] for pancytopenia and failure to thrive/anorexia/weight loss. POLST FORM NOTED DATING 09/16/20 FOR DNR/DNI BUT NO MD SIGNATURE, THEREFORE INCOMPLETE AND INVALID. The patient's symptoms were gradual onset, severity was severe, duration since 4pm . Quality: Unable to obtain Past medical history: protein calorie malnutrition, thalassemia, hypertension, chronic pancreatitis, dyslipidemia, atherosclerosis, GERD, acquired complex renal cyst, peripheral neuropathy, history of adenomatous colonic polyps, major depression Past surgical history: UTO Patient examined, data reviewed Intubated on mechanical ventilation Hypotensive on pressor Has [place], has PEG PHYSICAL EXAMINATION: GENERAL: Reveals a 75-year-old male. VITAL SIGNS: Blood pressure is 90/60, heart rate 84, respirations 20, he is 100% FiO2, breathing 26 times a minute. AC rate is 14. HEENT: Unremarkable. Endotracheal tube is in place. LUNGS: Rhonchi bilaterally decreased breath sound basis ABDOMEN: Soft. Somewhat distended. PEG in place EXTREMITIES: There is no edema. LABORATORY AND DIAGNOSTIC DATA: Lab testing shows white count 71296, hemoglobin 11.8. Creatinine 6.1. Lactic acid 5.2, now 7.1. CRP is 2.6. Coags show INR 1.7. ABG, pH 7.26, pCO2 29, pO2 84. Imaging studies were obtained with an x-ray chest several days ago, which was clear except for atelectasis. . Assessment/Plan Acute renal failure Septic shock Acute respiratory failure Unclear CODE STATUS Suggestions Pulmonary support Pressors Antibiotics Hydrocortisone Clarified CODE STATUS Per orders Angel Whitehead MD Sep 30, 2020 10:20
--- NOTE | 2020-09-30 10:44 | Consultation ---
DATE OF CONSULTATION: 09/30/2020 PULMONARY CONSULTATION HISTORY OF PRESENT ILLNESS: This is a 75-year-old male with a history of malnutrition, thalassemia, hypertension, chronic pancreatitis, , GERD, neuropathy, and depression who was sent in from a nursing facility with altered mental status. The patient was poorly responsive and was being bagged. He was bradycardic and no pulse was found on arrival. The patient was seen to have a POLST form saying DNR but it was not signed by physician. The patient was intubated by the ER physician. At this time, family has been contacted. PAST MEDICAL HISTORY: As discussed above. PREVIOUS SURGERIES: Unknown. REVIEW OF SYSTEMS: Unobtainable. PHYSICAL EXAMINATION: GENERAL: Reveals a 75-year-old male. VITAL SIGNS: Blood pressure is 90/60, heart rate 84, respirations 20, he is 100% FiO2, breathing 26 times a minute. AC rate is 14. HEENT: Unremarkable. Endotracheal tube is in place. LUNGS: Clear breath sounds bilaterally. ABDOMEN: Soft. EXTREMITIES: There is no edema. LABORATORY AND DIAGNOSTIC DATA: Lab testing shows white count 94964, hemoglobin 11.8. Creatinine 6.1. Lactic acid 5.2, now 7.1. CRP is 2.6. Coags show INR 1.7. ABG, pH 7.26, pCO2 29, pO2 84. Imaging studies were obtained with an x-ray chest several days ago, which was clear except for atelectasis. IMPRESSION: 1. Respiratory failure. 2. Multiple medical problems consisting of hypertension, thalassemia, chronic pancreatitis, GERD, neuropathy, and depression. DISCUSSION: Admit to the hospital. Code status needs to be discussed with family. Currently the patient is intubated. We will continue AC mode. He has been started on fluids. DVT and GI prophylaxis. Broad-spectrum antibiotics. We will follow carefully. Currently, status is questionable. He has sepsis with high lactate for which he has received fluids as well as antibiotics. He was noted to have renal dysfunction. He may benefit from dialysis. However, code status and further care needs to be addressed with family before continuing down this trajectory. Dennis Benavidez M.D. DR: Néstor JOB#: [id number] CC:
--- NOTE | 2020-09-30 11:07 | NUR ---
@0800 UNRESPONSIVE HYPOTHERMIC ON WARMING BAREHUGGER CONT,ON VENT ON AC16/RR>26
--- NOTE | 2020-09-30 11:10 | NUR ---
PT,SEEN BY LUIS FERNANDO HUANG BEDSIDE REPORT GIVEN NO NEW ORDERS
--- NOTE | 2020-09-30 11:17 | Consultation ---
History of Present Illness General Date patient seen: Sep 30, 2020 Reason for Hospitalization: Dyspnea/Respdistress Present Illness HPI 75-year-old male with past medical history of protein calorie malnutrition, thalassemia, hypertension, chronic pancreatitis, dyslipidemia, atherosclerosis, GERD, acquired complex renal cyst, peripheral neuropathy, history of adenomatous colonic polyps, major depression presents from [facility] for altered mental status. Patient has GCS of 8, agonal respirations and is being bagged by EMS. No pulse found on arrival therefore history limited 2/2 clinical condition. According to staff, the patient was noted to be altered beginning at 4 PM however there was a delay in transport to the emergency department. According to paperwork, he had been admitted to the SNF for rehab after [facility] for pancytopenia and failure to thrive/anorexia/weight loss. intubated on vent support. declining. in ICU. surgery called to evaluate and assist with care. Allergies: Coded Allergies: No Known Allergies (Unverified , 09/13/20) COVID-19 Screening Contact w/high risk pt: Yes Experienced COVID-19 symptoms?: Yes Coronavirus symptoms experienc: Shortness of Breath Medication History Scheduled Docusate Sodium* (Docusate Sodium*), 250 MG ORAL TWICE A DAY, (Reported) Folic Acid* (Folic Acid*), 1 MG ORAL DAILY, (Reported) Latanoprost* (Xalatan*), 1 DROP BOTH EYES BEDTIME, (Reported) Omeprazole (Omeprazole), 20 MG ORAL DAILY, (Reported) Simvastatin (Zocor), 20 MG ORAL BEDTIME, (Reported) Scheduled PRN Acetaminophen* (Acetaminophen 325MG Tablet*), 650 MG ORAL Q4H PRN for , (Reported) Miscellaneous Medications Sennosides/Docusate Sodium (Senna Plus 8.6-50 mg Tablet), 1 EACH PO, (Reported) Patient History Limited by: medical condition History Provided By: Medical Record, PMD Healthcare decision maker Resuscitation status Advanced Directive on File Past Medical/Surgical History Past Medical/Surgical History: (1) Hypernatremia (2) Cardiopulmonary arrest (3) Septic shock (4) Lactic acidosis (5) Failure to thrive (6) Pancytopenia (7) Respiratory failure (8) Hypoxia (9) Pneumonia (10) Renal failure (11) Respiratory arrest Review of Systems Review of Symptoms -D-z-n-e-r-a-l- -R-O-S-:- -n-o- -l-f-g-g-h-t- -l-o-s-s- -o-r- -f-e-v-e-r- -Y-w-k-w-x-c-h-u-w-i-c--a-l- -R-O-S-:- -n-o- -j-a-b-m-g-b-s-i-o-n- -o-r- -m-o-o-d- -y-b-b-n-g-e-s-,- -n-o- -s-t-j-o-r-y- -l-o-s-s- -J-m-o-l-p-q-l-m-i-c- -R-O-S-:- -n-o- -t-g-i-u-a-l- -o-v-q-n-g-e-s- -o-r- -e-y-e- -r-v-b-t-g-b-t-i-o-n- -E-N-T- -R-O-S-:- -n-o- -n-a-s-a-l- -g-h-k-u-r-t-t-i-o-n-,- -c-e-n-r-i-n-g- -l-o-s-s-,- -r-e-v-e-j-d-e-s-s- -M-w-t-e-r-g-y- -a-n-d- -Q-o-p--w-i-d-l-o-g-y- -R-O-S-:- -n-o- -g-p-w-e-r-g-i-c- -z-i-g-p-t-o-m-s- -o-r- -u-z-y-q-z-q-r-i-a- -F-m-u-k-z-r-h-l-x-i-c-a-l- -a-n-d- -M-l-r-k-h-c-t-i-c- -R-O-S-:- -n-o- -k-q-e-l-l--e-n- -h-g-k-n-d-s-,- -c-z-r-s-u-a-l- -u-s-l-e-d-i-n-g- -o-r- -r-t-o-i-s-i-n-g- -C-w-s-s-x-y-i-n-e- -R-O-S-:- -n-o- -y-d-g-y-u-r-i-a-,- -l-t-d-b-a-r-p-s-i-a-,- -q-s-q-g-h-t- -x-j-n-n-g-e-s-,- -n-o-o-p-e--c-z-b-u-r-e- -o-y-x-y-j-a-r-a-n-c-e- -K-s-q-k-d-w-a-t-o-r-y- -R-O-S-:- -n-o- -c-o-u-g-h-,- -m-e-x-k-p-a-e-s-s- -o-f- -q-d-k-a-t-h-,- -o-r- -c-j-k-e-z-i-n-g- -W-a-i-x-a-l-v-a--c-i-h-l-a-r- -R-O-S-:- -n-o- -c-h-e-s-t- -p-a-i-n- -o-r- -t-q-f-p-n-e-a- -o-n- -b-m-j-r-t-i-o-n- -B-w-t-f-w-n-f-l-g-b-q-j-i-n-a-l- -R-O-S-:- -n-w-d-i-e-s- -t-p-o-h-q-k-n-a-l- -p-a-i-n-,- -f-k-r-g-h-t- -r-e-d- -b-l-o-o-d- -i-n- -s-t-o-o-l-.- -F-c-r-c-b-o-k-g-x-p-r-y-t-a-l- -R-O-S-:- -n-o- -f-o-u-l-g-i-a-s- -o-r- -p-m-r-n-m-h-l-g-i-a-s- -L-k-u-i-c-b--h-j-s-c-a-l- -R-O-S-:- -n-o- -T-I-A- -o-r- -c-v-z-o-k-e- -g-c-e-p-t-o-m-s- -W-h-l-p-k-k-d-z-w-g-i-c-a-l- -R-O-S-:- -n-o- -n-e-w- -o-r- -a-v-u-n-g-i-n-g- -s-k-i-n- -b-c-k-i-o-n--s-,- -a-x-g-h-e-s- -o-r- -u-c-c-r-i-t-i-s- -l-e-r-b-l-e- -t-o- -z-g-x-a-i-n- -g-i-v-e-n- -e-y-z-i-c-a-l- -u-h-f-z-a-s-i-o-n- Physical Exam Physical Exam General appearance: mod distress, appears stated age in ICU Head: Normocephalic, without obvious abnormality, atraumatic Eyes: conjunctivae/corneas clear. PERRL, EOM's intact. Fundi benign Throat: Lips, mucosa, and tongue normal. Teeth and gums normal Neck: supple, symmetrical, trachea midline, no adenopathy, thyroid: not enlarged, symmetric, no tenderness/mass/nodules, no carotid bruit and no JVD Lungs: dec to auscultation bilaterally ett in place Heart: regular rate and rhythm, S1, S2 normal, no murmur, click, rub or gallop Abdomen: soft, non-tender. Bowel sounds normal. No masses, no organomegaly Extremities: extremities normal, atraumatic, no cyanosis or edema Pulses: 2+ and symmetric Skin: Skin color, texture, turgor normal. No rashes or lesions Neurologic: Grossly normal Last 24 Hour Vital Signs Date Time Temp Pulse Resp B/P (MAP) Pulse Ox O2 Delivery O2 Flow Rate FiO2 09/30/20 11:05 98/56 09/30/20 11:00 85 31 98/56 (70) 99 09/30/20 10:00 92/56 09/30/20 10:00 92/56 09/30/20 10:00 82 29 79/51 (60) 97 09/30/20 09:30 83 29 81/47 (58) 97 09/30/20 09:11 96/66 09/30/20 09:00 85 29 96/66 (76) 98 09/30/20 09:00 Mechanical Ventilator 100.0 09/30/20 08:00 93/67 09/30/20 08:00 70 09/30/20 08:00 87 09/30/20 07:55 94.0 09/30/20 07:45 82 27 103/72 (82) 98 09/30/20 07:31 86 27 60 09/30/20 07:30 83 26 109/76 (87) 99 09/30/20 07:15 81 25 106/73 (84) 99 09/30/20 07:00 106/73 09/30/20 07:00 81 25 102/66 (78) 99 09/30/20 06:45 81 24 105/77 (86) 99 09/30/20 06:30 82 20 09/30/20 06:30 80 24 104/76 (85) 99 09/30/20 06:15 79 24 110/79 (89) 99 09/30/20 06:00 81 24 115/79 (91) 99 09/30/20 06:00 105/56 09/30/20 05:45 80 23 107/79 (88) 99 09/30/20 05:30 80 23 107/81 (90) 99 09/30/20 05:15 93.5 79 23 106/76 (86) 99 09/30/20 05:00 106/76 09/30/20 05:00 79 23 115/79 (91) 99 09/30/20 04:49 82 23 60 09/30/20 04:30 81 22 118/85 (96) 99 09/30/20 04:15 81 20 108/82 (91) 100 09/30/20 04:00 Mechanical Ventilator 100.0 09/30/20 04:00 81 19 113/80 (91) 100 09/30/20 04:00 108/82 09/30/20 03:45 82 18 119/84 (96) 94 09/30/20 03:30 81 19 117/83 (94) 85 09/30/20 03:15 82 18 122/85 (97) 93 09/30/20 03:00 81 18 127/88 (101) 95 09/30/20 03:00 122/85 09/30/20 02:49 Mechanical Ventilator 100.0 09/30/20 02:45 82 18 117/82 (94) 94 09/30/20 02:35 83 16 100 Mechanical Ventilator 70 09/30/20 02:30 84 19 106/72 (83) 95 09/30/20 02:30 117/83 09/30/20 02:28 83 16 70 09/30/20 02:24 91.3 84 18 150/69 (96) 99 09/30/20 02:15 85 09/30/20 02:15 70 09/30/20 02:00 97.1 88 18 116/88 100 Mechanical Ventilator 70 09/30/20 01:00 105/62 2/25/21 00:46 88 16 70 09/29/20 23:54 98/68 09/29/20 23:49 80 09/29/20 23:15 107/84 09/29/20 23:10 96.8 100 16 119/82 100 Mechanical Ventilator 100 09/29/20 23:10 97.1 16 100 Mechanical Ventilator 09/29/20 23:00 119/82 09/29/20 22:45 140/80 09/29/20 22:40 156/88 09/29/20 22:40 96.8 115 16 156/88 100 Mechanical Ventilator 100 09/29/20 22:35 160/109 09/29/20 22:32 120 16 100 09/29/20 22:30 62/42 09/29/20 22:10 118 12 Ambu-Bag 09/29/20 22:09 118 12 103/64 (77) 100 Ambu-Bag Intake and Output 09/29/20 09/30/20 19:00 07:00 Intake Total 1506.25 ml Output Total 5 ml Balance 1501.25 ml IV Total 1506.25 ml Output Urine Total 5 ml Laboratory Tests Test 09/29/20 22:37 09/29/20 22:50 09/30/20 00:45 09/30/20 04:44 Arterial Blood pH 7.271 (7.350-7.450) Arterial Blood Partial Pressure CO2 37.4 mmHg (35.0-45.0) Arterial Blood Partial Pressure O2 155.9 mmHg (75.0-100.0) H Arterial Blood HCO3 16.8 mmol/L (22.0-26.0) *L Arterial Blood Oxygen Saturation 98.2 % (95-100) Arterial Blood Base Excess -9.3 (-2-2) *L Onesimo Test Positive White Blood Count 10.5 K/UL (4.8-10.8) 11.3 K/UL (4.8-10.8) H Red Blood Count 3.35 M/UL (4.70-6.10) L 3.87 M/UL (4.70-6.10) L Hemoglobin 10.2 G/DL (14.2-18.0) L 11.8 G/DL (14.2-18.0) L Hematocrit 32.0 % (42.0-52.0) L 38.4 % (42.0-52.0) L Mean Corpuscular Volume 95 FL (80-99) 99 FL (80-99) Mean Corpuscular Hemoglobin 30.6 PG (27.0-31.0) 30.6 PG (27.0-31.0) Mean Corpuscular Hemoglobin Concent 32.1 G/DL (32.0-36.0) 30.8 G/DL (32.0-36.0) L Red Cell Distribution Width 17.9 % (11.6-14.8) H 18.0 % (11.6-14.8) H Platelet Count 70 K/UL (150-450) L 76 K/UL (150-450) L Mean Platelet Volume 10.1 FL (6.5-10.1) 9.5 FL (6.5-10.1) Neutrophils (%) (Auto) % (45.0-75.0) % (45.0-75.0) Lymphocytes (%) (Auto) % (20.0-45.0) % (20.0-45.0) Monocytes (%) (Auto) % (1.0-10.0) % (1.0-10.0) Eosinophils (%) (Auto) % (0.0-3.0) % (0.0-3.0) Basophils (%) (Auto) % (0.0-2.0) % (0.0-2.0) Prothrombin Time 17.6 SEC (9.30-11.50) H Prothromb Time International Ratio 1.7 (0.9-1.1) H Activated Partial Thromboplast Time 43 SEC (23-33) H Sodium Level 142 MMOL/L (136-145) 140 MMOL/L (136-145) Potassium Level 4.3 MMOL/L (3.5-5.1) 5.0 MMOL/L (3.5-5.1) Chloride Level 111 MMOL/L (98-107) H 109 MMOL/L (98-107) H Carbon Dioxide Level 17 MMOL/L (21-32) L 16 MMOL/L (21-32) L Anion Gap 14 mmol/L (5-15) 15 mmol/L (5-15) Blood Urea Nitrogen 45 mg/dL (7-18) H 43 mg/dL (7-18) H Creatinine 5.7 MG/DL (0.55-1.30) H 6.1 MG/DL (0.55-1.30) H Estimat Glomerular Filtration Rate 11.8 mL/min (>60) 10.9 mL/min (>60) Glucose Level 127 MG/DL (74-106) H 174 MG/DL (74-106) H Lactic Acid Level 3.90 mmol/L (0.4-2.0) H 5.20 mmol/L (0.66-2.22) H 7.10 mmol/L (0.4-2.0) H Calcium Level 10.6 MG/DL (8.5-10.1) H 9.8 MG/DL (8.5-10.1) Phosphorus Level 5.0 MG/DL (2.5-4.9) H 6.1 MG/DL (2.5-4.9) H Magnesium Level 3.1 MG/DL (1.8-2.4) H 2.3 MG/DL (1.8-2.4) Ferritin > 2000 NG/ML (8-388) H Total Bilirubin 0.8 MG/DL (0.2-1.0) 1.3 MG/DL (0.2-1.0) H Aspartate Amino Transf (AST/SGOT) 32 U/L (15-37) 37 U/L (15-37) Alanine Aminotransferase (ALT/SGPT) 30 U/L (12-78) 36 U/L (12-78) Alkaline Phosphatase 98 U/L (46-116) 104 U/L (46-116) Lactate Dehydrogenase 209 U/L (81-234) Total Creatine Kinase 49 U/L (26-308) Troponin I 0.049 ng/mL (0.000-0.056) C-Reactive Protein, Quantitative 2.6 mg/dL (0.00-0.90) H Pro-B-Type Natriuretic Peptide 2290 pg/mL (0-125) H Total Protein 5.4 G/DL (6.4-8.2) L 5.9 G/DL (6.4-8.2) L Albumin 1.9 G/DL (3.4-5.0) L 2.1 G/DL (3.4-5.0) L Globulin 3.5 g/dL 3.8 g/dL Albumin/Globulin Ratio 0.5 (1.0-2.7) L 0.6 (1.0-2.7) L Triglycerides Level 67 MG/DL (30-150) Lipase 49 U/L (73-393) L Differential Total Cells Counted 100 Neutrophils % (Manual) 87 % (45-75) H Lymphocytes % (Manual) 5 % (20-45) L Monocytes % (Manual) 7 % (1-10) Eosinophils % (Manual) 0 % (0-3) Basophils % (Manual) 0 % (0-2) Band Neutrophils 1 % (0-8) Platelet Estimate Decreased L Platelet Morphology Normal Hypochromasia 1+ Anisocytosis 1+ Macrocytosis 1+ Direct Bilirubin 0.7 MG/DL (0.0-0.3) H Test 09/30/20 08:27 Arterial Blood pH 7.264 (7.350-7.450) Arterial Blood Partial Pressure CO2 29.5 mmHg (35.0-45.0) L Arterial Blood Partial Pressure O2 88.4 mmHg (75.0-100.0) Arterial Blood HCO3 13.1 mmol/L (22.0-26.0) *L Arterial Blood Oxygen Saturation 95.6 % (95-100) Arterial Blood Base Excess -12.6 (-2-2) *L Ones[facility] Test Positive Microbiology Date/Time Source Procedure Growth Status 09/30/20 02:33 Rectum Received Height (Feet): 6 Height (Inches): 8.00 Weight (Pounds): 165 Medications Current Medications Medications (Trade) Dose Ordered Sig/Alfredo Route PRN Reason Start Time Stop Time Status Last Admin Dose Admin Acetaminophen (Tylenol) 650 mg EVERY 6 HOURS PRN NG Temp >100.5 09/30/20 02:30 10/30/20 02:29 Albumin Human 500 ml @ 0 mls/hr Q0M IV 09/30/20 10:30 09/30/20 12:00 Chlorhexidine Gluconate (Babita-Hex 2%) 1 applic DAILY@2000 TOPIC 09/30/20 20:00 12/29/20 19:59 Dextrose (Dextrose 50%) 25 ml Q30M PRN IV Hypoglycemia 09/30/20 02:30 12/29/20 02:29 Dextrose (Dextrose 50%) 50 ml Q30M PRN IV Hypoglycemia 09/30/20 02:30 12/29/20 02:29 Dextrose/Sodium Chloride 1,000 ml @ 75 mls/hr [id number] IV 09/30/20 03:30 10/30/20 03:29 09/30/20 03:42 Famotidine (Pepcid I.v.) 20 mg DAILY IVP 09/30/20 10:00 10/30/20 09:59 09/30/20 10:50 Hydrocortisone (Solu-CORTEF) 100 mg EVERY 8 HOURS IV 09/30/20 14:00 12/29/20 13:59 Norepinephrine Bitartrate 8 mg/ Dextrose 250 ml @ 0 mls/hr Q24H IV 09/30/20 02:30 10/03/20 02:29 09/30/20 10:00 Piperacillin Sod/ Tazobactam Sod 3.375 gm/Sodium Chloride 110 ml @ 27.5 mls/hr Q12HR IVPB 09/30/20 09:00 10/07/20 08:59 09/30/20 09:11 Propofol 100 ml @ 1.769 mls/ hr Q12H IV 09/29/20 23:45 10/01/20 23:31 Vancomycin HCl (Vanco pharmacy to dose) 1 ea DAILY PRN MISC Per rx protocol 09/30/20 10:00 10/30/20 09:59 Assessment/Plan Problem List: (1) Cardiopulmonary arrest ICD Codes: I46.9 - Cardiac arrest, cause unspecified SNOMED: 902866516 (2) Septic shock Assessment & Plan: 75 male leukocytosis lactic acidosis septic shock intubated intensive care unit. Unable to give abdominal exam, exam otherwise benign abdominal unlikely etiology imaging reviewed labs reviewed. Continue ventilator support respiratory in nature seemingly. NG tube IV fluids IV antibiotics will follow with recommendations thank you letter participation's care DAILY ESTIMATED NEEDS: Needs based on Critical care 74.2kg 22-28 kcals/kg 7784-3354 total kcals 1.2-2 g protein/kg 89-148 g total protein 25-30 mL/kg 5037-5387 total fluid mLs NUTRITION DIAGNOSIS: Swallowing difficulty r/t respiratory arrest as evidenced by pt intubated, on pressor support, ICU status. ENTERAL NUTRITION RECOMMENDATIONS: As able NEPRO @40ml/hr x24 hrs to provide 960ml, 1728 kcal, 78g pro, 698ml free H2O -When stable for feeds rec renal formula at this time d/t increasing K and phos. -obtain GI access, initiate Nepro @20ml/hr for 6 hrs, advance as tolerated 10ml/hr 2q4-6 hrs to goal -When tolerating TF at goal, add prosource 1 pack BID to better meet est pro needs. -Flush per . HOB over 30 degrees. ----> If hemodynamically unstable, rec trophic feeds of Nepro @10ml/hr to maintain gut integrity. ADDITIONAL RECOMMENDATIONS: 1) F/up w/ H&P 2) Maintain D5 IV hydration while NPO 3) Maintain calibrated bed scale wts 4) Non oral feeds when stable ICD Codes: A41.9 - Sepsis, unspecified organism; R65.21 - Severe sepsis with septic shock SNOMED: 19217621 (3) Lactic acidosis ICD Codes: E87.2 - Acidosis SNOMED: 89620045 (4) Failure to thrive SNOMED: 76043535 (5) Pancytopenia ICD Codes: D61.818 - Other pancytopenia SNOMED: 127599464 (6) Respiratory failure ICD Codes: J96.90 - Respiratory failure, unspecified, unspecified whether with hypoxia or hypercapnia SNOMED: 158298620 (7) Hypoxia ICD Codes: R09.02 - Hypoxemia SNOMED: 238369584 (8) Pneumonia ICD Codes: J18.9 - Pneumonia, unspecified organism SNOMED: 261661085 (9) Respiratory arrest ICD Codes: R09.2 - Respiratory arrest SNOMED: 82610099 (10) Hypernatremia ICD Codes: E87.0 - Hyperosmolality and hypernatremia SNOMED: 038658413 (11) Renal failure ICD Codes: N19 - Unspecified kidney failure SNOMED: 01050797 Oni Walker Sep 30, 2020 11:17
[2020-09-30] MEDS: propofoL 1,000mg/100ml 100 ML IV SCH (11:45)
--- NOTE | 2020-09-30 12:01 | NUR ---
ENTEROSTOMAL THERAPY NURSE NOTE PT was intubated on 09/29/20. Pt is from [facility]. SW spoke w/ pt's cousin, Olivia Isabel and pt's brother Brayan Vargas over the phone that the brother is the primary emergency contact and he will make the decision on behalf of pt if needed. Per brother, pt has children but they are estranged and not in contact. Brayan reports pt has AD from [facility] but it was not signed d/t covid-19. TERESE requested Brayan to fax the copy of AD to this SW at [phone]. Brayan reports pt wants to remain full code until MD determines the end of life. If pt has poor prognosis, pt stated in his AD that he would not want further tx. Brayan Vargas (brother) [phone] (cell) Olivia Isabel (cousin) [phone]
[2020-09-30] MEDS: Hydrocortisone 100mg Inj IV SCH ×2 (12:42→21:17)
--- NOTE | 2020-09-30 13:04 | Diagnostic Imaging Report ---
Procedure: XRAY Chest 1v Reason for study: Central line placement. Comparison films: 09/13/2020. FINDINGS: There is an endotracheal tube in good position. There is a right central venous catheter with the tip at the cavoatrial junction. No pneumothorax noted. Vascularity is normal. Bibasilar atelectasis noted. Cardiac and mediastinal silhouette are within normal limits. CP angles are sharp. The bony thorax appear unremarkable. IMPRESSION: Endotracheal tube and right central venous catheter in satisfactory position. No pneumothorax. Bibasilar atelectasis.
--- NOTE | 2020-09-30 13:51 | Diagnostic Imaging Report ---
Procedure: XRAY Chest 1v Reason for study: Shortness of breath Comparison films: 09/29/2020. FINDINGS: Endotracheal tube and right central venous catheter remain in place. There is a new NG tube in the mid to distal esophagus. Recommend advancement. Vascularity is normal. There are bibasilar infiltrates or atelectasis unchanged. Cardiac and mediastinal silhouette are within normal limits. CP angles are sharp. The bony thorax appear unremarkable. IMPRESSION: New NG tube and mid to distal esophagus. Recommend advancement. Bibasilar atelectasis versus infiltrates.
--- NOTE | 2020-09-30 13:52 | Diagnostic Imaging Report ---
EXAM: XRAY Abdomen 1v HISTORY: NG tube placement COMPARISON: None. TECHNIQUE: Frontal view of the abdomen obtained. FINDINGS: NG tube noted in the stomach with mild gaseous distention. There is nonspecific bowel gas pattern with scattered air lucencies in the small and large bowel. No definite pathologic calcifications identified. There is no sign of free air. No acute abnormality noted of the visualized osseous structures. IMPRESSION: NG TUBE IN STOMACH. NONSPECIFIC BOWEL GAS PATTERN.
--- NOTE | 2020-09-30 14:35 | NUR ---
abg result called to caleb herron message left
--- NOTE | 2020-09-30 14:59 | NUR ---
[address] rd,estelita called back abg,s result given with sod,bicarb ordered and given
[2020-09-30] MEDS ORDERED: Sodium Bicarbonate 50ml Carp IV SCH (15:00)
[2020-09-30] MEDS ORDERED: D5 1/2NS 1000ml IV ONE (15:16)
[2020-09-30] MEDS ORDERED: Tubing IV Secondary IV ONE (15:16)
[2020-09-30] MEDS ORDERED: NS 275ml ONE (15:16)
[2020-09-30 16:52] LABS: APPEARANCE,URINE CLOUDY; BILIRUBIN, URINE 1+ (NEGATIVE); GLUCOSE, URINE (UA) 1+ (NEGATIVE); KETONES,URINE 1+ (NEGATIVE); LEUKOCYTE ESTERASE ,URINE 2+ (NEGATIVE); NITRITE,URINE NEGATIVE (NEGATIVE); PH,URINE 5 (4.5-8.0); PROTEIN,URINE 3+ (NEGATIVE); UROBILINOGEN,URINE NORMAL MG/DL (0.0-1.0)
[2020-09-30 16:54] LABS: COLOR,URINE YELLOW
--- NOTE | 2020-09-30 17:06 | History and Physical ---
History of Present Illness General Date patient seen: Sep 30, 2020 Reason for Hospitalization: Dyspnea/Respdistress Present Illness HPI 75 yo male with PMHx of failure to thrive, HTN, thalassemia, pancytopenia, HLD, Depression who was sent to the ED from his care home for AMS. Per ED noted they noted that he had become encephalopathic about 4pm on the day of admission. In the ED he had agonal breathing and was intubated. He was afebrile with no leukocytosis. CXR showed LLL atelectasis and he had lactate of 7. He had a code blue in the ICU as he was found pulseless. Today his WBCS are 11, he is in the ICU on Levophed, NGT in place. I called his brother Brayan Vargas ) and reported that the patient was admitted to [facility] for 3 days 09/13- when Thalassemia was found. Bone Marrow Biopsy done and IT WAS NEGATIVE for ( Lymphoma, Myeloma, Leukemia ), he was then discharged to [facility] on 09/16/20 and had a follow up apt with his Oncologist Dr. Holliday in October. The patient had his first dose of Covid vaccine 09/11/20 and was noted to be coughing and congested prior to admission. Goals of care were discussed with DPOA today. Allergies: Coded Allergies: No Known Allergies (Unverified , 09/13/20) COVID-19 Screening Contact w/high risk pt: Yes Experienced COVID-19 symptoms?: Yes Coronavirus symptoms experienc: Shortness of Breath Medication History Scheduled Docusate Sodium* (Docusate Sodium*), 250 MG ORAL TWICE A DAY, (Reported) Folic Acid* (Folic Acid*), 1 MG ORAL DAILY, (Reported) Latanoprost* (Xalatan*), 1 DROP BOTH EYES BEDTIME, (Reported) Omeprazole (Omeprazole), 20 MG ORAL DAILY, (Reported) Simvastatin (Zocor), 20 MG ORAL BEDTIME, (Reported) Scheduled PRN Acetaminophen* (Acetaminophen 325MG Tablet*), 650 MG ORAL Q4H PRN for , (Reported) Miscellaneous Medications Sennosides/Docusate Sodium (Senna Plus 8.6-50 mg Tablet), 1 EACH PO, (Reported) Patient History Healthcare decision maker Resuscitation status Advanced Directive on File Physical Exam General Appearance: lethargic Lines, tubes and drains: central line - R IJ HEENT: normocephalic, atraumatic, other - Pupils are 2 mm and sluggish reaction to light. Neck: non-tender Respiratory/Chest: lungs clear Cardiovascular/Chest: normal rate Abdomen: no mass, hypoactive bowel sounds Extremities: non-pitting Neurologic: unresponsiveness Last 24 Hour Vital Signs Date Time Temp Pulse Resp B/P (MAP) Pulse Ox O2 Delivery O2 Flow Rate FiO2 09/30/20 16:00 95 09/30/20 16:00 98.3 97 31 103/40 (61) 100 09/30/20 16:00 70 09/30/20 16:00 Mechanical Ventilator 100.0 09/30/20 15:30 97 31 115/47 (69) 100 09/30/20 15:00 95 36 115/46 (69) 100 09/30/20 14:31 93 36 50 09/30/20 14:00 117/56 09/30/20 14:00 94 35 117/56 (76) 100 09/30/20 13:30 156/62 09/30/20 13:27 96 33 154/61 (92) 100 09/30/20 13:00 162/61 09/30/20 13:00 95 31 163/69 (100) 100 09/30/20 12:00 70 09/30/20 12:00 Mechanical Ventilator 100.0 09/30/20 12:00 163/69 09/30/20 12:00 96 09/30/20 12:00 97.5 96 32 162/65 (97) 100 09/30/20 11:30 90 33 125/60 (81) 100 09/30/20 11:05 98/56 09/30/20 11:00 85 31 98/56 (70) 99 09/30/20 10:25 83 28 50 09/30/20 10:00 92/56 09/30/20 10:00 92/56 09/30/20 10:00 82 29 79/51 (60) 97 09/30/20 09:30 83 29 81/47 (58) 97 09/30/20 09:11 96/66 09/30/20 09:00 85 29 96/66 (76) 98 09/30/20 09:00 Mechanical Ventilator 100.0 09/30/20 08:00 93/67 09/30/20 08:00 70 09/30/20 08:00 87 09/30/20 07:55 94.0 09/30/20 07:45 82 27 103/72 (82) 98 09/30/20 07:31 86 27 60 09/30/20 07:30 83 26 109/76 (87) 99 09/30/20 07:15 81 25 106/73 (84) 99 09/30/20 07:00 106/73 09/30/20 07:00 81 25 102/66 (78) 99 09/30/20 06:45 81 24 105/77 (86) 99 09/30/20 06:30 82 20 09/30/20 06:30 80 24 104/76 (85) 99 09/30/20 06:15 79 24 110/79 (89) 99 09/30/20 06:00 81 24 115/79 (91) 99 09/30/20 06:00 105/56 09/30/20 05:45 80 23 107/79 (88) 99 09/30/20 05:30 80 23 107/81 (90) 99 09/30/20 05:15 93.5 79 23 106/76 (86) 99 09/30/20 05:00 106/76 09/30/20 05:00 79 23 115/79 (91) 99 09/30/20 04:49 82 23 60 09/30/20 04:30 81 22 118/85 (96) 99 09/30/20 04:15 81 20 108/82 (91) 100 09/30/20 04:00 Mechanical Ventilator 100.0 09/30/20 04:00 81 19 113/80 (91) 100 09/30/20 04:00 108/82 09/30/20 03:45 82 18 119/84 (96) 94 09/30/20 03:30 81 19 117/83 (94) 85 09/30/20 03:15 82 18 122/85 (97) 93 09/30/20 03:00 81 18 127/88 (101) 95 09/30/20 03:00 122/85 09/30/20 02:49 Mechanical Ventilator 100.0 09/30/20 02:45 82 18 117/82 (94) 94 09/30/20 02:35 83 16 100 Mechanical Ventilator 70 09/30/20 02:30 84 19 106/72 (83) 95 09/30/20 02:30 117/83 09/30/20 02:28 83 16 70 09/30/20 02:24 91.3 84 18 150/69 (96) 99 09/30/20 02:15 85 09/30/20 02:15 70 09/30/20 02:00 97.1 88 18 116/88 100 Mechanical Ventilator 70 09/30/20 01:00 105/62 09/30/20 00:46 88 16 70 09/29/20 23:54 98/68 09/29/20 23:49 80 09/29/20 23:15 107/84 09/29/20 23:10 96.8 100 16 119/82 100 Mechanical Ventilator 100 09/29/20 23:10 97.1 16 100 Mechanical Ventilator 09/29/20 23:00 119/82 09/29/20 22:45 140/80 09/29/20 22:40 156/88 09/29/20 22:40 96.8 115 16 156/88 100 Mechanical Ventilator 100 09/29/20 22:35 160/109 09/29/20 22:32 120 16 100 09/29/20 22:30 62/42 09/29/20 22:10 118 12 Ambu-Bag 09/29/20 22:09 118 12 103/64 (77) 100 Ambu-Bag Intake and Output 09/29/20 09/30/20 19:00 07:00 Intake Total 1506.25 ml Output Total 5 ml Balance 1501.25 ml IV Total 1506.25 ml Output Urine Total 5 ml Laboratory Tests Test 09/29/20 22:37 09/29/20 22:50 09/30/20 00:45 09/30/20 04:44 Arterial Blood pH 7.271 (7.350-7.450) Arterial Blood Partial Pressure CO2 37.4 mmHg (35.0-45.0) Arterial Blood Partial Pressure O2 155.9 mmHg (75.0-100.0) H Arterial Blood HCO3 16.8 mmol/L (22.0-26.0) *L Arterial Blood Oxygen Saturation 98.2 % (95-100) Arterial Blood Base Excess -9.3 (-2-2) *L Onesimo Test Positive White Blood Count 10.5 K/UL (4.8-10.8) 11.3 K/UL (4.8-10.8) H Red Blood Count 3.35 M/UL (4.70-6.10) L 3.87 M/UL (4.70-6.10) L Hemoglobin 10.2 G/DL (14.2-18.0) L 11.8 G/DL (14.2-18.0) L Hematocrit 32.0 % (42.0-52.0) L 38.4 % (42.0-52.0) L Mean Corpuscular Volume 95 FL (80-99) 99 FL (80-99) Mean Corpuscular Hemoglobin 30.6 PG (27.0-31.0) 30.6 PG (27.0-31.0) Mean Corpuscular Hemoglobin Concent 32.1 G/DL (32.0-36.0) 30.8 G/DL (32.0-36.0) L Red Cell Distribution Width 17.9 % (11.6-14.8) H 18.0 % (11.6-14.8) H Platelet Count 70 K/UL (150-450) L 76 K/UL (150-450) L Mean Platelet Volume 10.1 FL (6.5-10.1) 9.5 FL (6.5-10.1) Neutrophils (%) (Auto) % (45.0-75.0) % (45.0-75.0) Lymphocytes (%) (Auto) % (20.0-45.0) % (20.0-45.0) Monocytes (%) (Auto) % (1.0-10.0) % (1.0-10.0) Eosinophils (%) (Auto) % (0.0-3.0) % (0.0-3.0) Basophils (%) (Auto) % (0.0-2.0) % (0.0-2.0) Prothrombin Time 17.6 SEC (9.30-11.50) H Prothromb Time International Ratio 1.7 (0.9-1.1) H Activated Partial Thromboplast Time 43 SEC (23-33) H Sodium Level 142 MMOL/L (136-145) 140 MMOL/L (136-145) Potassium Level 4.3 MMOL/L (3.5-5.1) 5.0 MMOL/L (3.5-5.1) Chloride Level 111 MMOL/L (98-107) H 109 MMOL/L (98-107) H Carbon Dioxide Level 17 MMOL/L (21-32) L 16 MMOL/L (21-32) L Anion Gap 14 mmol/L (5-15) 15 mmol/L (5-15) Blood Urea Nitrogen 45 mg/dL (7-18) H 43 mg/dL (7-18) H Creatinine 5.7 MG/DL (0.55-1.30) H 6.1 MG/DL (0.55-1.30) H Estimat Glomerular Filtration Rate 11.8 mL/min (>60) 10.9 mL/min (>60) Glucose Level 127 MG/DL (74-106) H 174 MG/DL (74-106) H Lactic Acid Level 3.90 mmol/L (0.4-2.0) H 5.20 mmol/L (0.66-2.22) H 7.10 mmol/L (0.4-2.0) H Calcium Level 10.6 MG/DL (8.5-10.1) H 9.8 MG/DL (8.5-10.1) Phosphorus Level 5.0 MG/DL (2.5-4.9) H 6.1 MG/DL (2.5-4.9) H Magnesium Level 3.1 MG/DL (1.8-2.4) H 2.3 MG/DL (1.8-2.4) Ferritin > 2000 NG/ML (8-388) H Total Bilirubin 0.8 MG/DL (0.2-1.0) 1.3 MG/DL (0.2-1.0) H Aspartate Amino Transf (AST/SGOT) 32 U/L (15-37) 37 U/L (15-37) Alanine Aminotransferase (ALT/SGPT) 30 U/L (12-78) 36 U/L (12-78) Alkaline Phosphatase 98 U/L (46-116) 104 U/L (46-116) Lactate Dehydrogenase 209 U/L (81-234) Total Creatine Kinase 49 U/L (26-308) Troponin I 0.049 ng/mL (0.000-0.056) C-Reactive Protein, Quantitative 2.6 mg/dL (0.00-0.90) H Pro-B-Type Natriuretic Peptide 2290 pg/mL (0-125) H Total Protein 5.4 G/DL (6.4-8.2) L 5.9 G/DL (6.4-8.2) L Albumin 1.9 G/DL (3.4-5.0) L 2.1 G/DL (3.4-5.0) L Globulin 3.5 g/dL 3.8 g/dL Albumin/Globulin Ratio 0.5 (1.0-2.7) L 0.6 (1.0-2.7) L Triglycerides Level 67 MG/DL (30-150) Lipase 49 U/L (73-393) L Differential Total Cells Counted 100 Neutrophils % (Manual) 87 % (45-75) H Lymphocytes % (Manual) 5 % (20-45) L Monocytes % (Manual) 7 % (1-10) Eosinophils % (Manual) 0 % (0-3) Basophils % (Manual) 0 % (0-2) Band Neutrophils 1 % (0-8) Platelet Estimate Decreased L Platelet Morphology Normal Hypochromasia 1+ Anisocytosis 1+ Macrocytosis 1+ Direct Bilirubin 0.7 MG/DL (0.0-0.3) H Test 09/30/20 08:27 09/30/20 14:30 Arterial Blood pH 7.264 (7.350-7.450) Arterial Blood Partial Pressure CO2 29.5 mmHg (35.0-45.0) L Arterial Blood Partial Pressure O2 88.4 mmHg (75.0-100.0) Arterial Blood HCO3 13.1 mmol/L (22.0-26.0) *L Arterial Blood Oxygen Saturation 95.6 % (95-100) Arterial Blood Base Excess -12.6 (-2-2) *L Onesimo Test Positive Urine Color Pending Urine Appearance Pending Urine pH Pending Urine Specific [place] Pending Urine Protein Pending Urine Glucose (UA) Pending Urine Ketones Pending Urine Blood Pending Urine Nitrite Pending Urine Bilirubin Pending Urine Urobilinogen Pending Urine Leukocyte Esterase Pending Urine RBC Pending Urine WBC Pending Urine Squamous Epithelial Cells Pending Urine Bacteria Pending Microbiology Date/Time Source Procedure Growth Status 09/30/20 02:33 Rectum Received Height (Feet): 6 Height (Inches): 8.00 Weight (Pounds): 165 Medications Current Medications Medications (Trade) Dose Ordered Sig/Alfredo Route PRN Reason Start Time Stop Time Status Last Admin Dose Admin Acetaminophen (Tylenol) 650 mg EVERY 6 HOURS PRN NG Temp >100.5 09/30/20 02:30 10/30/20 02:29 Chlorhexidine Gluconate (Babita-Hex 2%) 1 applic DAILY@2000 TOPIC 09/30/20 20:00 12/29/20 19:59 Dextrose (Dextrose 50%) 25 ml Q30M PRN IV Hypoglycemia 09/30/20 02:30 12/29/20 02:29 Dextrose (Dextrose 50%) 50 ml Q30M PRN IV Hypoglycemia 09/30/20 02:30 12/29/20 02:29 Dextrose/Sodium Chloride 1,000 ml @ 75 mls/hr [id number] IV 09/30/20 03:30 10/30/20 03:29 09/30/20 03:42 Famotidine (Pepcid I.v.) 20 mg DAILY IVP 09/30/20 10:00 10/30/20 09:59 09/30/20 10:50 Hydrocortisone (Solu-CORTEF) 100 mg EVERY 8 HOURS IV 09/30/20 14:00 12/29/20 13:59 Norepinephrine Bitartrate 8 mg/ Dextrose 250 ml @ 0 mls/hr Q24H IV 09/30/20 02:30 10/03/20 02:29 09/30/20 10:00 Piperacillin Sod/ Tazobactam Sod 3.375 gm/Sodium Chloride 110 ml @ 27.5 mls/hr Q12HR IVPB 09/30/20 09:00 10/07/20 08:59 09/30/20 09:11 Vancomycin HCl ([facility] pharmacy to dose) 1 ea DAILY PRN MISC Per rx protocol 09/30/20 10:00 10/30/20 09:59 Assessment/Plan Assessment/Plan: 75 y/o Male admitted to the Hospital with; # AMS # Acute encephalopathy # Acute hypoxemic respiratory failure # Respiratory acidosis. ABG monitoring. Intubation in the ER Pulmonary/ICU wt Dr. Benavidez Renal consultation with Dr. Estrada. Add CT head wo contrast to rule out bleed vs other EEG ordered. # Pneumonia vs other ID consultation with Dr. Jamarcus Rick and Vancomycin Follow up lactate and wbc, cultures Covid Ag is NEGATIVE, PCR sent and pending. PUI status # Thalassemia Recent BM biopsy which was negative per family report. [place] MR number is [id number] ( [place] with [facility] [place] Supportive care Consider Hematology follow up as needed # FTT - anorexia and weight loss Supportive care RD consult in the next 2 days for nutrition Discussed GOC with the patient brother Brayan Vargas who reports DNR request from the patient. He was explained the nature of the patient current condition and current plan of care. DNR POLST signed by me and will need follow up discussion regarding pulmonary status and ability to wean off the ventilator. DNR DVT ppx GI ppx R IJ Jessenia Villegas MD Sep 30, 2020 17:06
--- NOTE | 2020-09-30 19:00 | NUR ---
Patient is not in acute distress, safety measures are in place. All tubes and lines were assessed, secured and in place. Refer to MR for full assessment and trending vitals.
[2020-09-30 19:08] LABS: ALBUMIN 1.7 G/DL (3.4-5.0); ALBUMIN/GLOBULIN RATIO 0.5 (1.0-2.7); BILIRUBIN,TOTAL 0.9 MG/DL (0.2-1.0); CALCIUM 9.2 MG/DL (8.5-10.1); CREATININE 6.2 MG/DL (0.55-1.30); POTASSIUM 5.1 MMOL/L (3.5-5.1)
--- NOTE | 2020-09-30 19:15 | Cardiology Report ---
APPROVED REPORT EKG Measurement Heart [id number] <Conclusion> Atrial fibrillation with rapid ventricular response Low voltage QRS Marked ST abnormality, possible inferior subendocardial injury Abnormal ECG
--- NOTE | 2020-09-30 19:22 | NUR ---
RESPIRATORY NOTE: Received pt on AC VC 16, 500VT, 50%, PEEP +5. Pt is intubated w/ ETT 7.5 @ 24cm lipline, secured by anchorfast. Pt is sedated. B/S denise. rhonchi, sxn small to moderate amounts of thick, méndez-yellow secretions. FiO2 titrated to 40% at this time, pt tolerating well, spO2 between 98-100%. Bedside RN aware. Vent plugged into red outlet, ambubag at bedside. Pt in no apparent distress at this time. Will continue to monitor pt.
--- NOTE | 2020-09-30 19:34 | NUR ---
1830 PT,SEEN BY SURINDER HUANG FOR DAYNA HUANG AND JULES TO PT,BROTHER DERIAN MADE DNR BUT CONT,TX ORDERED
[2020-09-30] MEDS ORDERED: Dyna-Hex 2% Top Sol 2oz TOPIC SCH (20:00)
[2020-09-30] MEDS: Dyna-Hex 2% Top Sol 2oz TOPIC SCH (20:13)
[2020-09-30] MEDS ORDERED: Vancomycin 1gm/D5W 275ml IVPB ONE ×2 (21:00)
[2020-10-01] VITALS (33 sets, daily range): BP systolic 83–129; BP diastolic 38–70
[2020-10-01] MEDS: D5 1/2NS 1,000 ML IV SCH ×2 (03:47→18:03)
[2020-10-01 05:56] LABS: HEMATOCRIT 29.3 % (42.0-52.0); HEMOGLOBIN 9.4 G/DL (14.2-18.0); MEAN CORPUSCULAR VOLUME 95 FL (80-99); PLATELET COUNT 53 K/UL (150-450); RED BLOOD COUNT 3.08 M/UL (4.70-6.10); RED CELL DISTRIBUTION WIDTH 17.4 % (11.6-14.8); WHITE BLOOD COUNT 11.2 K/UL (4.8-10.8)
[2020-10-01 06:39] LABS: PHOSPHORUS 4.6 MG/DL (2.5-4.9)
[2020-10-01] MEDS: Hydrocortisone 100mg Inj IV SCH ×3 (06:43→22:21)
--- NOTE | 2020-10-01 07:28 | NUR ---
NURSE NOTES: Received pt and report from KIRBY Rodriguez. Pt is observed laying in bed, unresponsive. HR currently 98bpm on personnel monitor. Pt is orally intubated ETT 7.5, 23cm @ the lip line. Vent settings: AC 16, TV 500, Fio2 40%, peep of 5, and O2sat is at 99%. no s/s of respiratory distress at this time. Pt has NGT, currently NPO. [place] catheter is noted, draining well with gravity to urometer. Right IJ TLC noted, dressing site intact, clean, and patent. Running D5 1/2 NS @ 75mL/hr. Call light within reach. bed at the lowest position, alarmed, and locked. Will resume plan of care.
[2020-10-01 07:34] LABS: ALBUMIN 1.6 G/DL (3.4-5.0); ALBUMIN/GLOBULIN RATIO 0.5 (1.0-2.7); BILIRUBIN,TOTAL 0.9 MG/DL (0.2-1.0); CALCIUM 8.2 MG/DL (8.5-10.1); CREATININE 6.7 MG/DL (0.55-1.30); POTASSIUM 5.1 MMOL/L (3.5-5.1)
[2020-10-01] MEDS: Piperacillin/Tazobactam 3.375 GM in NS 110 ML IVPB SCH ×2 (08:06→20:16)
--- NOTE | 2020-10-01 08:10 | Infectious Diseases Prog Note ---
Assessment/Plan 75 yo male with PMHx of failure to thrive, HTN, thalassemia, pancytopenia, HLD, Depression who was sent to the ED from his residential for AMS. Septic Shock Unclear source CXR 09/29/20 - Left basilar atelectasis. No acute process otherwise. Evidence of old granulomatous disease Leukocytosis No fever AMS Lactic acidosis Failure to thrive HTN Thalassemia Pancytopenia HLD Depression Adenomatous colonic polyps PLAN - Continue Zosyn #1 and Vancomycin #1 - f/u COVID 19 Ag screen - f/u Cultures - Consider CT head to r/o bleed or stroke - but will differ to primary MD - Monitor CBC and Temps Thank you for this consult. [facility] will continue to follow Mr. Vargas while he in hospitalized. Subjective Allergies: Coded Allergies: No Known Allergies (Unverified , 09/13/20) Afebrile WBCs 11 Cultures with no growth to date On Pressors Objective Last 24 Hour Vital Signs Date Time Temp Pulse Resp B/P (MAP) Pulse Ox O2 Delivery O2 Flow Rate FiO2 10/01/20 07:00 97 18 107/57 (74) 100 10/01/20 06:30 100 21 102/55 (71) 100 10/01/20 06:30 82 20 10/01/20 06:00 99 19 98/56 (70) 100 10/01/20 05:21 100 19 40 10/01/20 05:00 103 18 110/57 (74) 100 10/01/20 04:00 50 10/01/20 04:00 102 20 105/53 (70) 99 10/01/20 04:00 Mechanical Ventilator 100.0 10/01/20 03:31 101 22 40 10/01/20 03:00 101 18 113/43 (66) 99 10/01/20 03:00 113/43 10/01/20 02:30 100 17 99 10/01/20 02:00 102/53 10/01/20 02:00 100 18 102/53 (69) 99 10/01/20 01:30 99 18 109/49 (69) 99 10/01/20 01:00 107/53 10/01/20 01:00 98 17 107/53 (71) 99 10/01/20 00:44 98 18 40 10/01/20 00:30 99 16 97/45 (62) 99 10/01/20 00:00 50 10/01/20 00:00 100 17 117/54 (75) 99 10/01/20 00:00 99 10/01/20 00:00 Mechanical Ventilator 100.0 10/01/20 00:00 117/54 09/30/20 23:30 98 16 114/51 (72) 99 09/30/20 23:00 100 16 98/50 (66) 99 09/30/20 23:00 98/50 09/30/20 22:52 100 17 40 09/30/20 22:30 101 16 93/43 (60) 98 09/30/20 22:00 124/52 09/30/20 22:00 102 16 124/52 (76) 99 09/30/20 21:52 101 16 40 09/30/20 21:30 104 16 104/49 (67) 98 09/30/20 21:00 105 16 112/55 (74) 98 09/30/20 21:00 112/55 09/30/20 20:30 105 16 106/63 (77) 98 09/30/20 20:00 40 09/30/20 20:00 98.3 97 31 100 09/30/20 20:00 114/60 09/30/20 20:00 106 16 114/60 (78) 100 09/30/20 20:00 Mechanical Ventilator 100.0 09/30/20 20:00 99 09/30/20 19:17 122 17 40 09/30/20 19:00 122 16 180/77 (111) 100 09/30/20 19:00 161/76 09/30/20 18:00 124 16 115/55 (75) 100 09/30/20 18:00 115/55 09/30/20 17:00 94 30 111/55 (73) 100 09/30/20 17:00 111/48 09/30/20 16:00 95 09/30/20 16:00 98.3 97 31 103/40 (61) 100 09/30/20 16:00 70 09/30/20 16:00 121/50 09/30/20 16:00 Mechanical Ventilator 100.0 09/30/20 15:30 97 31 115/47 (69) 100 09/30/20 15:00 115/47 2/25/21 15:00 95 36 115/46 (69) 100 09/30/20 14:31 93 36 50 09/30/20 14:00 117/56 09/30/20 14:00 94 35 117/56 (76) 100 09/30/20 13:30 156/62 09/30/20 13:27 96 33 154/61 (92) 100 09/30/20 13:00 162/61 09/30/20 13:00 95 31 163/69 (100) 100 09/30/20 12:00 70 09/30/20 12:00 Mechanical Ventilator 100.0 09/30/20 12:00 163/69 09/30/20 12:00 96 09/30/20 12:00 97.5 96 32 162/65 (97) 100 09/30/20 11:30 90 33 125/60 (81) 100 09/30/20 11:05 98/56 09/30/20 11:00 85 31 98/56 (70) 99 09/30/20 10:25 83 28 50 09/30/20 10:00 92/56 09/30/20 10:00 92/56 09/30/20 10:00 82 29 79/51 (60) 97 09/30/20 09:30 83 29 81/47 (58) 97 09/30/20 09:11 96/66 09/30/20 09:00 85 29 96/66 (76) 98 09/30/20 09:00 Mechanical Ventilator 100.0 Height (Feet): 6 Height (Inches): 8.00 Weight (Pounds): 165 Gen: Intubated on Vent HEENT: NCAT, MMM, No scleral icterus Pulm: RRR No accessory mescle use Abd: Soft, ND, + BS Neuro: Not following SKIN: Exposed skin normal in color no rash noted Microbiology Date/Time Source Procedure Growth Status 09/30/20 14:30 Indwelling Cath Urine Culture - Preliminary NO GROWTH Resulted 09/30/20 02:33 Rectum Received 09/29/20 22:35 Blood Blood Culture - Preliminary Resulted 09/29/20 22:20 Blood Blood Culture - Preliminary NO GROWTH AFTER 24 HOURS Resulted 09/29/20 11:30 Nasopharynx SARS-CoV-2 Antigen (Rapid)(HARPER) - Final Complete Laboratory Tests Test 2/25/21 08:27 09/30/20 14:30 09/30/20 18:18 10/01/20 05:25 Arterial Blood pH 7.264 (7.350-7.450) Arterial Blood Partial Pressure CO2 29.5 mmHg (35.0-45.0) L Arterial Blood Partial Pressure O2 88.4 mmHg (75.0-100.0) Arterial Blood HCO3 13.1 mmol/L (22.0-26.0) *L Arterial Blood Oxygen Saturation 95.6 % (95-100) Arterial Blood Base Excess -12.6 (-2-2) *L Onesimo Test Positive Urine Color Yellow Urine Appearance Cloudy Urine pH 5 (4.5-8.0) Urine Specific [place] 1.020 (1.005-1.035) Urine Protein 3+ (NEGATIVE) H Urine Glucose (UA) 1+ (NEGATIVE) H Urine Ketones 1+ (NEGATIVE) H Urine Blood 5+ (NEGATIVE) H Urine Nitrite Negative (NEGATIVE) Urine Bilirubin 1+ (NEGATIVE) H Urine Ictotest Negative (NEGATIVE) Urine Urobilinogen Normal MG/DL (0.0-1.0) Urine Leukocyte Esterase 2+ (NEGATIVE) H Urine RBC 10-15 /HPF (0 - 0) H Urine WBC 5-10 /HPF (0 - 0) H Urine Squamous Epithelial Cells Few /LPF (NONE/OCC) Urine Bacteria Moderate /HPF (NONE) H Sodium Level 139 MMOL/L (136-145) 138 MMOL/L (136-145) Potassium Level 5.1 MMOL/L (3.5-5.1) 5.1 MMOL/L (3.5-5.1) Chloride Level 109 MMOL/L (98-107) H 110 MMOL/L (98-107) H Carbon Dioxide Level 15 MMOL/L (21-32) L 18 MMOL/L (21-32) L Anion Gap 15 mmol/L (5-15) 10 mmol/L (5-15) Blood Urea Nitrogen 46 mg/dL (7-18) H 48 mg/dL (7-18) H Creatinine 6.2 MG/DL (0.55-1.30) H 6.7 MG/DL (0.55-1.30) H Estimat Glomerular Filtration Rate 10.7 mL/min (>60) 9.8 mL/min (>60) Glucose Level 167 MG/DL (74-106) H 161 MG/DL (74-106) H Lactic Acid Level 5.20 mmol/L (0.4-2.0) H 2.70 mmol/L (0.4-2.0) H Calcium Level 9.2 MG/DL (8.5-10.1) 8.2 MG/DL (8.5-10.1) L Total Bilirubin 0.9 MG/DL (0.2-1.0) 0.9 MG/DL (0.2-1.0) Aspartate Amino Transf (AST/SGOT) 40 U/L (15-37) H 33 U/L (15-37) Alanine Aminotransferase (ALT/SGPT) 34 U/L (12-78) 29 U/L (12-78) Alkaline Phosphatase 81 U/L (46-116) 77 U/L (46-116) Total Protein 5.0 G/DL (6.4-8.2) L 5.0 G/DL (6.4-8.2) L Albumin 1.7 G/DL (3.4-5.0) L 1.6 G/DL (3.4-5.0) L Globulin 3.3 g/dL 3.4 g/dL Albumin/Globulin Ratio 0.5 (1.0-2.7) L 0.5 (1.0-2.7) L Random Vancomycin Level 11.1 ug/mL White Blood Count 11.2 K/UL (4.8-10.8) H Red Blood Count 3.08 M/UL (4.70-6.10) L Hemoglobin 9.4 G/DL (14.2-18.0) L Hematocrit 29.3 % (42.0-52.0) L Mean Corpuscular Volume 95 FL (80-99) Mean Corpuscular Hemoglobin 30.5 PG (27.0-31.0) Mean Corpuscular Hemoglobin Concent 32.0 G/DL (32.0-36.0) Red Cell Distribution Width 17.4 % (11.6-14.8) H Platelet Count 53 K/UL (150-450) L Mean Platelet Volume 12.7 FL (6.5-10.1) H Neutrophils (%) (Auto) % (45.0-75.0) Lymphocytes (%) (Auto) % (20.0-45.0) Monocytes (%) (Auto) % (1.0-10.0) Eosinophils (%) (Auto) % (0.0-3.0) Basophils (%) (Auto) % (0.0-2.0) Neutrophils % (Manual) Pending Lymphocytes % (Manual) Pending Platelet Estimate Pending Platelet Morphology Pending Uric Acid 10.0 MG/DL (2.6-7.2) H Phosphorus Level 4.6 MG/DL (2.5-4.9) Magnesium Level 1.8 MG/DL (1.8-2.4) C-Reactive Protein, Quantitative 5.4 mg/dL (0.00-0.90) H Pro-B-Type Natriuretic Peptide 64115 pg/mL (0-125) H Current Medications Medications (Trade) Dose Ordered Sig/Alfredo Route PRN Reason Start Time Stop Time Status Last Admin Dose Admin Acetaminophen (Tylenol) 650 mg EVERY 6 HOURS PRN NG Temp >100.5 09/30/20 02:30 10/30/20 02:29 Chlorhexidine Gluconate (Babita-Hex 2%) 1 applic DAILY@2000 TOPIC 09/30/20 20:00 12/29/20 19:59 09/30/20 20:13 Dextrose (Dextrose 50%) 25 ml Q30M PRN IV Hypoglycemia 09/30/20 02:30 12/29/20 02:29 Dextrose (Dextrose 50%) 50 ml Q30M PRN IV Hypoglycemia 09/30/20 02:30 12/29/20 02:29 Dextrose/Sodium Chloride 1,000 ml @ 75 mls/hr [id number] IV 09/30/20 03:30 10/30/20 03:29 10/01/20 03:47 Famotidine (Pepcid I.v.) 20 mg DAILY IVP 09/30/20 10:00 10/30/20 09:59 10/01/20 08:06 Hydrocortisone (Solu-CORTEF) 100 mg EVERY 8 HOURS IV 09/30/20 14:00 12/29/20 13:59 10/01/20 06:43 Norepinephrine Bitartrate 8 mg/ Dextrose 250 ml @ 0 mls/hr Q24H IV 09/30/20 02:30 10/03/20 02:29 09/30/20 10:00 Piperacillin Sod/ Tazobactam Sod 3.375 gm/Sodium Chloride 110 ml @ 27.5 mls/hr Q12HR IVPB 09/30/20 09:00 10/07/20 08:59 10/01/20 08:06 Vancomycin HCl ([facility] pharmacy to dose) 1 ea DAILY PRN MISC Per rx protocol 09/30/20 10:00 10/30/20 09:59 Yoel Ricketts MD Oct 01, 2020 08:10
--- NOTE | 2020-10-01 08:35 | NUR ---
NURSE NOTES: Dr. Ricketts on the unit making his rounds. Updated him on pt's current condition. Will schedule head CT for later today, as pt is now off of Levophed and more stable.
--- NOTE | 2020-10-01 10:20 | NUR ---
NURSE NOTES: Dr Benavidez on the unit, making his rounds. Updated him on pt's current condition.
--- NOTE | 2020-10-01 10:43 | Pulmonology Progress Note ---
Subjective Interval Events: No change Constitutional: Reports: no symptoms HEENT: Repors: no symptoms Respiratory: Reports: no symptoms Cardiovascular: Reports: no symptoms Gastrointestinal/Abdominal: Reports: no symptoms Genitourinary: Reports: no symptoms Allergies: Coded Allergies: No Known Allergies (Unverified , 09/13/20) Objective Last 24 Hour Vital Signs Date Time Temp Pulse Resp B/P (MAP) Pulse Ox O2 Delivery O2 Flow Rate FiO2 10/01/20 10:00 98 17 107/59 (75) 99 10/01/20 09:00 98 23 104/51 (68) 100 10/01/20 08:30 97 16 125/57 (79) 100 10/01/20 08:00 98.7 96 18 110/55 (73) 99 10/01/20 08:00 40 10/01/20 08:00 96 10/01/20 08:00 Mechanical Ventilator 10/01/20 07:48 97 17 40 10/01/20 07:30 97 19 103/57 (72) 99 10/01/20 07:00 97 18 107/57 (74) 100 10/01/20 06:30 100 21 102/55 (71) 100 10/01/20 06:30 82 20 10/01/20 06:00 99 19 98/56 (70) 100 10/01/20 05:21 100 19 40 10/01/20 05:00 103 18 110/57 (74) 100 10/01/20 04:00 50 10/01/20 04:00 102 20 105/53 (70) 99 10/01/20 04:00 Mechanical Ventilator 100.0 10/01/20 04:00 101 10/01/20 03:31 101 22 40 10/01/20 03:00 101 18 113/43 (66) 99 10/01/20 03:00 113/43 10/01/20 02:30 100 17 99 10/01/20 02:00 102/53 10/01/20 02:00 100 18 102/53 (69) 99 10/01/20 01:30 99 18 109/49 (69) 99 10/01/20 01:00 107/53 10/01/20 01:00 98 17 107/53 (71) 99 10/01/20 00:44 98 18 40 10/01/20 00:30 99 16 97/45 (62) 99 10/01/20 00:00 50 10/01/20 00:00 100 17 117/54 (75) 99 10/01/20 00:00 99 10/01/20 00:00 Mechanical Ventilator 100.0 10/01/20 00:00 117/54 09/30/20 23:30 98 16 114/51 (72) 99 09/30/20 23:00 100 16 98/50 (66) 99 09/30/20 23:00 98/50 09/30/20 22:52 100 17 40 09/30/20 22:30 101 16 93/43 (60) 98 09/30/20 22:00 124/52 09/30/20 22:00 102 16 124/52 (76) 99 09/30/20 21:52 101 16 40 09/30/20 21:30 104 16 104/49 (67) 98 09/30/20 21:00 105 16 112/55 (74) 98 09/30/20 21:00 112/55 09/30/20 20:30 105 16 106/63 (77) 98 09/30/20 20:00 40 09/30/20 20:00 98.3 97 31 100 09/30/20 20:00 114/60 09/30/20 20:00 106 16 114/60 (78) 100 09/30/20 20:00 Mechanical Ventilator 100.0 09/30/20 20:00 99 09/30/20 19:17 122 17 40 09/30/20 19:00 122 16 180/77 (111) 100 09/30/20 19:00 161/76 09/30/20 18:00 124 16 115/55 (75) 100 09/30/20 18:00 115/55 09/30/20 17:00 94 30 111/55 (73) 100 09/30/20 17:00 111/48 09/30/20 16:00 95 09/30/20 16:00 98.3 97 31 103/40 (61) 100 09/30/20 16:00 70 09/30/20 16:00 121/50 09/30/20 16:00 Mechanical Ventilator 100.0 09/30/20 15:30 97 31 115/47 (69) 100 09/30/20 15:00 115/47 09/30/20 15:00 95 36 115/46 (69) 100 09/30/20 14:31 93 36 50 09/30/20 14:00 117/56 09/30/20 14:00 94 35 117/56 (76) 100 09/30/20 13:30 156/62 09/30/20 13:27 96 33 154/61 (92) 100 09/30/20 13:00 162/61 09/30/20 13:00 95 31 163/69 (100) 100 09/30/20 12:00 70 09/30/20 12:00 Mechanical Ventilator 100.0 09/30/20 12:00 163/69 09/30/20 12:00 96 09/30/20 12:00 97.5 96 32 162/65 (97) 100 09/30/20 11:30 90 33 125/60 (81) 100 09/30/20 11:05 98/56 09/30/20 11:00 85 31 98/56 (70) 99 Intake and Output 09/30/20 10/01/20 19:00 07:00 Intake Total 2278.125 ml 996.250 ml Output Total 40 ml 0 ml Balance 2238.125 ml 996.250 ml Intake Oral 0 ml IV Total 2278.125 ml 996.250 ml Output Urine Total 40 ml 0 ml Stool Total 0 ml General Appearance: no acute distress HEENT: normocephalic Respiratory: chest wall non-tender Cardiovascular: normal peripheral pulses Abdomen: normal bowel sounds Microbiology Date/Time Source Procedure Growth Status 09/30/20 14:30 Indwelling Cath Urine Culture - Preliminary NO GROWTH Resulted 09/30/20 02:33 Rectum Received 09/29/20 22:35 Blood Blood Culture - Preliminary Resulted 09/29/20 22:20 Blood Blood Culture - Preliminary NO GROWTH AFTER 24 HOURS Resulted 09/29/20 11:30 Nasopharynx SARS-CoV-2 Antigen (Rapid)([facility]) - Final Complete Laboratory Tests 09/30/20 14:30: Urine Color Yellow, Urine Appearance Cloudy, Urine pH 5, Urine Specific [place] 1.020, Urine Protein 3+H, Urine Glucose (UA) 1+H, Urine Ketones 1+H, Urine Blood 5+H, Urine Nitrite Negative, Urine Bilirubin 1+H, Urine Ictotest Negative, Urine Urobilinogen Normal, Urine Leukocyte Esterase 2+H, Urine RBC 10-15H, Urine WBC 5-10H, Urine Squamous Epithelial Cells Few, Urine Bacteria ModerateH 09/30/20 18:18: Sodium Level 139, Potassium Level 5.1, Chloride Level 109H, Carbon Dioxide Level 15L, Anion Gap 15, Blood Urea Nitrogen 46H, Creatinine 6.2H, Estimat Glomerular Filtration Rate 10.7, Glucose Level 167H, Lactic Acid Level 5.20H, Calcium Level 9.2, Total Bilirubin 0.9, Aspartate Amino Transf (AST/SGOT) 40H, Alanine Aminotransferase (ALT/SGPT) 34, Alkaline Phosphatase 81, Total Protein 5.0L, Albumin 1.7L, Globulin 3.3, Albumin/Globulin Ratio 0.5L, Random Vancomycin Level 11.1 10/01/20 05:25: Sodium Level 138, Potassium Level 5.1, Chloride Level 110H, Carbon Dioxide Level 18L, Anion Gap 10, Blood Urea Nitrogen 48H, Creatinine 6.7H, Estimat Glomerular Filtration Rate 9.8, Glucose Level 161H, Lactic Acid Level 2.70H, Calcium Level 8.2L, Total Bilirubin 0.9, Aspartate Amino Transf (AST/SGOT) 33, Alanine Aminotransferase (ALT/SGPT) 29, Alkaline Phosphatase 77, Total Protein 5.0L, Albumin 1.6L, Globulin 3.4, Albumin/Globulin Ratio 0.5L, White Blood Count 11.2H , Red Blood Count 3.08L, Hemoglobin 9.4L, Hematocrit 29.3L, Mean Corpuscular Volume 95, Mean Corpuscular Hemoglobin 30.5, Mean Corpuscular Hemoglobin Concent 32.0, Red Cell Distribution Width 17.4H, Platelet Count 53L, Mean Platelet Volume 12.7H, Neutrophils (%) (Auto) , Lymphocytes (%) (Auto) , Monocytes (%) (Auto) , Eosinophils (%) (Auto) , Basophils (%) (Auto) , Differential Total Cells Counted 100, Neutrophils % (Manual) 80H, Lymphocytes % (Manual) 7L, Monocytes % (Manual) 7, Eosinophils % (Manual) 0, Basophils % (Manual) 0, Band Neutrophils 6, Platelet Estimate DecreasedL, Platelet Morphology , Giant Platelets Occasional, Hypochromasia 1+, Anisocytosis 1+, Uric Acid 10.0H, Phosphorus Level 4.6, Magnesium Level 1.8, C-Reactive Protein, Quantitative 5.4H , Pro-B-Type Natriuretic Peptide [id number] 10/01/20 08:31: Arterial Blood pH 7.392, Arterial Blood Partial Pressure CO2 27.6L, Arterial Blood Partial Pressure O2 88.2, Arterial Blood HCO3 16.4*L, Arterial Blood Oxygen Saturation 96.1, Arterial Blood Base Excess -7.4L, Onesimo Test Positive Current Medications Medications (Trade) Dose Ordered Sig/Alfredo Route PRN Reason Start Time Stop Time Status Last Admin Dose Admin Acetaminophen (Tylenol) 650 mg EVERY 6 HOURS PRN NG Temp >100.5 09/30/20 02:30 10/30/20 02:29 Chlorhexidine Gluconate (Babita-Hex 2%) 1 applic DAILY@2000 TOPIC 09/30/20 20:00 12/29/20 19:59 09/30/20 20:13 Dextrose (Dextrose 50%) 25 ml Q30M PRN IV Hypoglycemia 09/30/20 02:30 12/29/20 02:29 Dextrose (Dextrose 50%) 50 ml Q30M PRN IV Hypoglycemia 09/30/20 02:30 12/29/20 02:29 Dextrose/Sodium Chloride 1,000 ml @ 75 mls/hr [id number] IV 09/30/20 03:30 10/30/20 03:29 10/01/20 03:47 Famotidine (Pepcid I.v.) 20 mg DAILY IVP 09/30/20 10:00 10/30/20 09:59 10/01/20 08:06 Hydrocortisone (Solu-CORTEF) 100 mg EVERY 8 HOURS IV 09/30/20 14:00 12/29/20 13:59 10/01/20 06:43 Norepinephrine Bitartrate 8 mg/ Dextrose 250 ml @ 0 mls/hr Q24H IV 09/30/20 02:30 10/03/20 02:29 09/30/20 10:00 Piperacillin Sod/ Tazobactam Sod 3.375 gm/Sodium Chloride 110 ml @ 27.5 mls/hr Q12HR IVPB 09/30/20 09:00 10/07/20 08:59 10/01/20 08:06 Vancomycin HCl ([facility] pharmacy to dose) 1 ea DAILY PRN MISC Per rx protocol 09/30/20 10:00 10/30/20 09:59 Assessment/Plan Assessment/Plan IMPRESSION: 1. Respiratory failure. 2. Multiple medical problems consisting of hypertension, thalassemia, chronic pancreatitis, GERD, neuropathy, and depression. DISCUSSION: Code status needs to be discussed with family. Currently the patient is intubated. I will continue AC mode. He has been started on fluids. DVT and GI prophylaxis. Broad-spectrum antibiotics. I will follow carefully. Bicarb supplementation ABG adequate Nirmala Oscar Omar Syed MD Oct 01, 2020 10:43
--- NOTE | 2020-10-01 11:54 | Nephrology Progress Note ---
Assessment/Plan Assessment Acute renal failure Septic shock Acute respiratory failure CODE STATUS now DNR Plan October 01: Patient clinically more stable. Discussed with KIRBY Tarango. Patient off pressors. ABG improved. Serum creatinine worse. Will start the patient on Bicitra and allopurinol through NG tube. Continue to monitor renal parameters. Per orders. Patient currently DNR. Previously: Pulmonary support Pressors Antibiotics Hydrocortisone Per orders Subjective ROS Limited/Unobtainable: Yes Objective Objective Last 24 Hour Vital Signs Date Time Temp Pulse Resp B/P (MAP) Pulse Ox O2 Delivery O2 Flow Rate FiO2 10/01/20 11:00 95 18 108/55 (72) 99 10/01/20 10:00 98 17 107/59 (75) 99 10/01/20 09:00 98 23 104/51 (68) 100 10/01/20 08:30 97 16 125/57 (79) 100 10/01/20 08:00 98.7 96 18 110/55 (73) 99 10/01/20 08:00 40 10/01/20 08:00 96 10/01/20 08:00 Mechanical Ventilator 10/01/20 07:48 97 17 40 10/01/20 07:30 97 19 103/57 (72) 99 10/01/20 07:00 97 18 107/57 (74) 100 10/01/20 06:30 100 21 102/55 (71) 100 10/01/20 06:30 82 20 10/01/20 06:00 99 19 98/56 (70) 100 10/01/20 05:21 100 19 40 10/01/20 05:00 103 18 110/57 (74) 100 10/01/20 04:00 50 10/01/20 04:00 102 20 105/53 (70) 99 10/01/20 04:00 Mechanical Ventilator 100.0 10/01/20 04:00 101 10/01/20 03:31 101 22 40 10/01/20 03:00 101 18 113/43 (66) 99 10/01/20 03:00 113/43 10/01/20 02:30 100 17 99 10/01/20 02:00 102/53 10/01/20 02:00 100 18 102/53 (69) 99 10/01/20 01:30 99 18 109/49 (69) 99 10/01/20 01:00 107/53 2/26/21 01:00 98 17 107/53 (71) 99 10/01/20 00:44 98 18 40 10/01/20 00:30 99 16 97/45 (62) 99 10/01/20 00:00 50 10/01/20 00:00 100 17 117/54 (75) 99 10/01/20 00:00 99 10/01/20 00:00 Mechanical Ventilator 100.0 10/01/20 00:00 117/54 09/30/20 23:30 98 16 114/51 (72) 99 09/30/20 23:00 100 16 98/50 (66) 99 09/30/20 23:00 98/50 09/30/20 22:52 100 17 40 09/30/20 22:30 101 16 93/43 (60) 98 09/30/20 22:00 124/52 09/30/20 22:00 102 16 124/52 (76) 99 09/30/20 21:52 101 16 40 09/30/20 21:30 104 16 104/49 (67) 98 09/30/20 21:00 105 16 112/55 (74) 98 09/30/20 21:00 112/55 09/30/20 20:30 105 16 106/63 (77) 98 09/30/20 20:00 40 09/30/20 20:00 98.3 97 31 100 09/30/20 20:00 114/60 09/30/20 20:00 106 16 114/60 (78) 100 09/30/20 20:00 Mechanical Ventilator 100.0 09/30/20 20:00 99 09/30/20 19:17 122 17 40 09/30/20 19:00 122 16 180/77 (111) 100 09/30/20 19:00 161/76 09/30/20 18:00 124 16 115/55 (75) 100 09/30/20 18:00 115/55 09/30/20 17:00 94 30 111/55 (73) 100 09/30/20 17:00 111/48 09/30/20 16:00 95 09/30/20 16:00 98.3 97 31 103/40 (61) 100 09/30/20 16:00 70 09/30/20 16:00 121/50 09/30/20 16:00 Mechanical Ventilator 100.0 09/30/20 15:30 97 31 115/47 (69) 100 09/30/20 15:00 115/47 09/30/20 15:00 95 36 115/46 (69) 100 09/30/20 14:31 93 36 50 09/30/20 14:00 117/56 09/30/20 14:00 94 35 117/56 (76) 100 09/30/20 13:30 156/62 09/30/20 13:27 96 33 154/61 (92) 100 09/30/20 13:00 162/61 09/30/20 13:00 95 31 163/69 (100) 100 09/30/20 12:00 70 09/30/20 12:00 Mechanical Ventilator 100.0 09/30/20 12:00 163/69 09/30/20 12:00 96 09/30/20 12:00 97.5 96 32 162/65 (97) 100 Intake and Output 09/30/20 10/01/20 19:00 07:00 Intake Total 2278.125 ml 996.250 ml Output Total 40 ml 0 ml Balance 2238.125 ml 996.250 ml Intake Oral 0 ml IV Total 2278.125 ml 996.250 ml Output Urine Total 40 ml 0 ml Stool Total 0 ml Current Medications Medications (Trade) Dose Ordered Sig/Alfredo Route PRN Reason Start Time Stop Time Status Last Admin Dose Admin Acetaminophen (Tylenol) 650 mg EVERY 6 HOURS PRN NG Temp >100.5 09/30/20 02:30 10/30/20 02:29 Allopurinol (allopurinoL) 300 mg DAILY NG 10/01/20 12:00 10/31/20 11:59 UNV Chlorhexidine Gluconate (Babita-Hex 2%) 1 applic DAILY@2000 TOPIC 09/30/20 20:00 12/29/20 19:59 09/30/20 20:13 Dextrose (Dextrose 50%) 25 ml Q30M PRN IV Hypoglycemia 09/30/20 02:30 12/29/20 02:29 Dextrose (Dextrose 50%) 50 ml Q30M PRN IV Hypoglycemia 09/30/20 02:30 12/29/20 02:29 Dextrose/Sodium Chloride 1,000 ml @ 75 mls/hr [id number] IV 09/30/20 03:30 10/30/20 03:29 10/01/20 03:47 Famotidine (Pepcid I.v.) 20 mg DAILY IVP 09/30/20 10:00 10/30/20 09:59 10/01/20 08:06 Hydrocortisone (Solu-CORTEF) 100 mg EVERY 8 HOURS IV 09/30/20 14:00 12/29/20 13:59 10/01/20 06:43 Norepinephrine Bitartrate 8 mg/ Dextrose 250 ml @ 0 mls/hr Q24H IV 09/30/20 02:30 10/03/20 02:29 09/30/20 10:00 Piperacillin Sod/ Tazobactam Sod 3.375 gm/Sodium Chloride 110 ml @ 27.5 mls/hr Q12HR IVPB 09/30/20 09:00 10/07/20 08:59 10/01/20 08:06 Sodium Citrate (Bicitra) 30 ml EVERY 6 HOURS NG 10/01/20 12:00 10/31/20 11:59 UNV Vancomycin HCl ([facility] pharmacy to dose) 1 ea DAILY PRN MISC Per rx protocol 09/30/20 10:00 10/30/20 09:59 Laboratory Tests 09/30/20 14:30: Urine Color Yellow, Urine Appearance Cloudy, Urine pH 5, Urine Specific [place] 1.020, Urine Protein 3+H, Urine Glucose (UA) 1+H, Urine Ketones 1+H, Urine Blood 5+H, Urine Nitrite Negative, Urine Bilirubin 1+H, Urine Ictotest Negative, Urine Urobilinogen Normal, Urine Leukocyte Esterase 2+H, Urine RBC 10-15H, Urine WBC 5-10H, Urine Squamous Epithelial Cells Few, Urine Bacteria ModerateH 09/30/20 18:18: Sodium Level 139, Potassium Level 5.1, Chloride Level 109H, Carbon Dioxide Level 15L, Anion Gap 15, Blood Urea Nitrogen 46H, Creatinine 6.2H, Estimat Glomerular Filtration Rate 10.7, Glucose Level 167H, Lactic Acid Level 5.20H, Calcium Level 9.2, Total Bilirubin 0.9, Aspartate Amino Transf (AST/SGOT) 40H, Alanine Aminotransferase (ALT/SGPT) 34, Alkaline Phosphatase 81, Total Protein 5.0L, Albumin 1.7L, Globulin 3.3, Albumin/Globulin Ratio 0.5L, Random Vancomycin Level 11.1 10/01/20 05:25: Sodium Level 138, Potassium Level 5.1, Chloride Level 110H, Carbon Dioxide Level 18L, Anion Gap 10, Blood Urea Nitrogen 48H, Creatinine 6.7H, Estimat Glomerular Filtration Rate 9.8, Glucose Level 161H, Lactic Acid Level 2.70H, Calcium Level 8.2L, Total Bilirubin 0.9, Aspartate Amino Transf (AST/SGOT) 33, Alanine Aminotransferase (ALT/SGPT) 29, Alkaline Phosphatase 77, Total Protein 5.0L, Albumin 1.6L, Globulin 3.4, Albumin/Globulin Ratio 0.5L, White Blood Count 11.2H , Red Blood Count 3.08L, Hemoglobin 9.4L, Hematocrit 29.3L, Mean Corpuscular Volume 95, Mean Corpuscular Hemoglobin 30.5, Mean Corpuscular Hemoglobin Concent 32.0, Red Cell Distribution Width 17.4H, Platelet Count 53L, Mean Platelet Volume 12.7H, Neutrophils (%) (Auto) , Lymphocytes (%) (Auto) , Monocytes (%) (Auto) , Eosinophils (%) (Auto) , Basophils (%) (Auto) , Differential Total Cells Counted 100, Neutrophils % (Manual) 80H, Lymphocytes % (Manual) 7L, Monocytes % (Manual) 7, Eosinophils % (Manual) 0, Basophils % (Manual) 0, Band Neutrophils 6, Platelet Estimate DecreasedL, Platelet Morphology , Giant Platelets Occasional, Hypochromasia 1+, Anisocytosis 1+, Uric Acid 10.0H, Phosphorus Level 4.6, Magnesium Level 1.8, C-Reactive Protein, Quantitative 5.4H , Pro-B-Type Natriuretic Peptide [id number] 10/01/20 08:31: Arterial Blood pH 7.392, Arterial Blood Partial Pressure CO2 27.6L, Arterial Blood Partial Pressure O2 88.2, Arterial Blood HCO3 16.4*L, Arterial Blood Oxygen Saturation 96.1, Arterial Blood Base Excess -7.4L, Onesimo Test Positive Height (Feet): 6 Height (Inches): 8.00 Weight (Pounds): 165 General Appearance: no apparent distress Cardiovascular: tachycardia Respiratory/Chest: decreased breath sounds Abdomen: distended Angel Whitehead MD Oct 01, 2020 11:54
--- NOTE | 2020-10-01 12:15 | NUR ---
NURSE NOTES: Tube feeding started @ 20mL/hr.
[2020-10-01] MEDS: Allopurinol 100mg Tab NG SCH (12:25)
[2020-10-01] MEDS: Sodium Citrate 30ml NG SCH ×2 (12:25→17:44)
--- NOTE | 2020-10-01 14:45 | NUR ---
NURSE NOTES: Pt's left shoulder noted to be twitching. Dr Starks made aware.
--- NOTE | 2020-10-01 15:30 | NUR ---
NURSE NOTES: Pt taken down for head CT. Pt tolerated test well. Pt on portable monitor during transport; no issues noted.
--- NOTE | 2020-10-01 15:33 | Diagnostic Imaging Report ---
Indication: Altered mental status Technique: Continuous helical CT scanning of the head was performed utilizing automated exposure control without intravenous contrast material. Axial and coronal reconstructions were obtained. Comparison: None CT dose: Total DLP 992.1 mGycm; CTDI vol 53.4 mGy Findings: There is no acute intracranial hemorrhage, mass effect or cortical edema. There is no shift of the midline structures. The ventricles, cisterns and sulci are prominent consistent with atrophy. Periventricular hypoattenuation is seen, a nonspecific finding. There are atherosclerotic vascular calcifications. Visualized mastoid air cells and paranasal sinuses are unremarkable. No focal lesions of the bony calvarium or soft tissues of the scalp are seen. IMPRESSION: No evidence of acute intracranial hemorrhage, mass effect or cortical edema. MRI recommended for more sensitive evaluation as clinically indicated. Atrophy and nonspecific periventricular hypoattenuation suggestive of chronic ischemic microvascular changes. The CT scanner at [facility] is accredited by the [employer] and the scans are performed using protocols designed to limit radiation exposure to as low as reasonably achievable to attain images of sufficient resolution adequate for diagnostic evaluation.
--- NOTE | 2020-10-01 15:37 | General Progress Note ---
Subjective Date patient seen: Oct 01, 2020 Time patient seen: 15:00 ROS Limited/Unobtainable: Yes Allergies: Coded Allergies: No Known Allergies (Unverified , 09/13/20) Subjective Intubated and non responsive. CT head pending. Objective Last 24 Hour Vital Signs Date Time Temp Pulse Resp B/P (MAP) Pulse Ox O2 Delivery O2 Flow Rate FiO2 10/01/20 14:30 99 21 129/62 (84) 98 10/01/20 14:00 98 21 126/70 (88) 99 10/01/20 13:00 99 22 108/59 (75) 99 10/01/20 12:00 40 10/01/20 12:00 96 10/01/20 12:00 98.6 96 19 98/54 (69) 96 10/01/20 12:00 Mechanical Ventilator 10/01/20 11:00 95 18 108/55 (72) 99 10/01/20 10:00 98 17 107/59 (75) 99 10/01/20 09:00 98 23 104/51 (68) 100 10/01/20 08:30 97 16 125/57 (79) 100 10/01/20 08:00 98.7 96 18 110/55 (73) 99 10/01/20 08:00 40 10/01/20 08:00 96 10/01/20 08:00 Mechanical Ventilator 10/01/20 07:48 97 17 40 10/01/20 07:30 97 19 103/57 (72) 99 10/01/20 07:00 97 18 107/57 (74) 100 10/01/20 06:30 100 21 102/55 (71) 100 10/01/20 06:30 82 20 10/01/20 06:00 99 19 98/56 (70) 100 10/01/20 05:21 100 19 40 10/01/20 05:00 103 18 110/57 (74) 100 10/01/20 04:00 50 10/01/20 04:00 102 20 105/53 (70) 99 10/01/20 04:00 Mechanical Ventilator 100.0 10/01/20 04:00 101 10/01/20 03:31 101 22 40 10/01/20 03:00 101 18 113/43 (66) 99 10/01/20 03:00 113/43 10/01/20 02:30 100 17 99 10/01/20 02:00 102/53 10/01/20 02:00 100 18 102/53 (69) 99 10/01/20 01:30 99 18 109/49 (69) 99 10/01/20 01:00 107/53 10/01/20 01:00 98 17 107/53 (71) 99 10/01/20 00:44 98 18 40 10/01/20 00:30 99 16 97/45 (62) 99 10/01/20 00:00 50 10/01/20 00:00 100 17 117/54 (75) 99 10/01/20 00:00 99 10/01/20 00:00 Mechanical Ventilator 100.0 10/01/20 00:00 117/54 09/30/20 23:30 98 16 114/51 (72) 99 09/30/20 23:00 100 16 98/50 (66) 99 09/30/20 23:00 98/50 09/30/20 22:52 100 17 40 09/30/20 22:30 101 16 93/43 (60) 98 09/30/20 22:00 124/52 09/30/20 22:00 102 16 124/52 (76) 99 09/30/20 21:52 101 16 40 09/30/20 21:30 104 16 104/49 (67) 98 09/30/20 21:00 105 16 112/55 (74) 98 09/30/20 21:00 112/55 09/30/20 20:30 105 16 106/63 (77) 98 09/30/20 20:00 40 09/30/20 20:00 98.3 97 31 100 09/30/20 20:00 114/60 09/30/20 20:00 106 16 114/60 (78) 100 09/30/20 20:00 Mechanical Ventilator 100.0 09/30/20 20:00 99 09/30/20 19:17 122 17 40 09/30/20 19:00 122 16 180/77 (111) 100 09/30/20 19:00 161/76 09/30/20 18:00 124 16 115/55 (75) 100 09/30/20 18:00 115/55 09/30/20 17:00 94 30 111/55 (73) 100 09/30/20 17:00 111/48 09/30/20 16:00 95 09/30/20 16:00 98.3 97 31 103/40 (61) 100 09/30/20 16:00 70 09/30/20 16:00 121/50 09/30/20 16:00 Mechanical Ventilator 100.0 Intake and Output 09/30/20 10/01/20 19:00 07:00 Intake Total 2278.125 ml 996.250 ml Output Total 40 ml 0 ml Balance 2238.125 ml 996.250 ml Intake Oral 0 ml IV Total 2278.125 ml 996.250 ml Output Urine Total 40 ml 0 ml Stool Total 0 ml Laboratory Tests 09/30/20 18:18: Sodium Level 139, Potassium Level 5.1, Chloride Level 109H, Carbon Dioxide Level 15L, Anion Gap 15, Blood Urea Nitrogen 46H, Creatinine 6.2H, Estimat Glomerular Filtration Rate 10.7, Glucose Level 167H, Lactic Acid Level 5.20H, Calcium Level 9.2, Total Bilirubin 0.9, Aspartate Amino Transf (AST/SGOT) 40H, Alanine Aminotransferase (ALT/SGPT) 34, Alkaline Phosphatase 81, Total Protein 5.0L, Alb umin 1.7L, Globulin 3.3, Albumin/Globulin Ratio 0.5L, Random Vancomycin Level 11.1 10/01/20 05:25: Sodium Level 138, Potassium Level 5.1, Chloride Level 110H, Carbon Dioxide Level 18L, Anion Gap 10, Blood Urea Nitrogen 48H, Creatinine 6.7H, Estimat Glomerular Filtration Rate 9.8, Glucose Level 161H, Lactic Acid Level 2.70H, Calcium Level 8.2L, Total Bilirubin 0.9, Aspartate Amino Transf (AST/SGOT) 33, Alanine Aminotransferase (ALT/SGPT) 29, Alkaline Phosphatase 77, Total Protein 5.0L, Albumin 1.6L, Globulin 3.4, Albumin/Globulin Ratio 0.5L, White Blood Count 11.2H , Red Blood Count 3.08L, Hemoglobin 9.4L, Hematocrit 29.3L, Mean Corpuscular Volume 95, Mean Corpuscular Hemoglobin 30.5, Mean Corpuscular Hemoglobin Concent 32.0, Red Cell Distribution Width 17.4H, Platelet Count 53L, Mean Platelet Volume 12.7H, Neutrophils (%) (Auto) , Lymphocytes (%) (Auto) , Monocytes (%) (Auto) , Eosinophils (%) (Auto) , Basophils (%) (Auto) , Differential Total Cells Counted 100, Neutrophils % (Manual) 80H, Lymphocytes % (Manual) 7L, Monocytes % (Manual) 7, Eosinophils % (Manual) 0, Basophils % (Manual) 0, Band Neutrophils 6, Platelet Estimate DecreasedL, Platelet Morphology , Giant Platelets Occasional, Hypochromasia 1+, Anisocytosis 1+, Uric Acid 10.0H, Phosphorus Level 4.6, Magnesium Level 1.8, C-Reactive Protein, Quantitative 5.4H , Pro-B-Type Natriuretic Peptide [id number] 10/01/20 08:31: Arterial Blood pH 7.392, Arterial Blood Partial Pressure CO2 27.6L, Arterial Blood Partial Pressure O2 88.2, Arterial Blood HCO3 16.4*L, Arterial Blood Oxygen Saturation 96.1, Arterial Blood Base Excess -7.4L, Onesimo Test Positive 10/01/20 12:05: Lactic Acid Level 3.00H, D-Dimer 5.84H Height (Feet): 6 Height (Inches): 8.00 Weight (Pounds): 165 General Appearance: no apparent distress EENT: other - pupils 2-3 mm reactive to light Neck: non-tender Cardiovascular: normal rate Respiratory/Chest: lungs clear 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 ABG monitoring. Intubation in the ER Pulmonary/ICU wt Dr. Beanvidez Renal consultation with Dr. Estrada. Add CT head wo contrast to rule out bleed vs other completing today. On route. EEG ordered today as no prior order found. Concern for anoxic brain injury. # Pneumonia vs other ID consultation with Dr. Jamarcus Rick and Vancomycin Follow up lactate and wbc, cultures Covid Ag is NEGATIVE, PCR sent and pending. PUI status # Thalassemia Recent BM biopsy which was negative per family report. [place] MR number is [id number] ( MR not linked with [facility] database ) Supportive care Consider Hematology follow up as needed # FTT - anorexia and weight loss Supportive care RD consult in the next 2 days for nutrition Discussed GOC with the patient brother Brayan Vargas who reports DNR request from the patient on 09/30. He was explained the nature of the patient current condition and current plan of care. DNR POLST signed by me and will need follow up discussion regarding pulmonary status and ability to wean off the ventilator. DNR DVT ppx GI ppx R IJ Jessenia Villegas MD Oct 01, 2020 15:37
--- NOTE | 2020-10-01 15:59 | Electroencephalogram ---
DATE OF PROCEDURE: 09/30/2020 EEG REPORT HISTORY: This EEG was performed on a 75-year-old gentleman, who was hospitalized for respiratory arrest. It is unclear as to why exactly this EEG was ordered. TECHNICAL NOTE: This EEG was performed on a [employer] with electrodes placed on the scalp according to the International 10-20 system. Kbucj-mg-bladi and nmenj-qi-bfh montages were used. The EEG was technically satisfactory and was performed while the patient was in a poorly responsive state. OBSERVATIONS: In the poorly responsive state, the background activity consisted of 4-5 Hz theta and 1.5-2.5 Hz delta activity. Throughout the tracing, triphasic waveforms were also seen. T4 and at times F8-T4 sharp and slow-wave discharges were also noted from time to time. IMPRESSION: This is an abnormal EEG characterized by: 1. Slowing of the background in the theta and delta range. 2. The presence of triphasic waveforms. 3. The presence of T4 and at times F8-T4 sharp and slow-wave discharges. COMMENT: This study is consistent with: 1. An encephalopathy of a moderately severe degree. 2. A metabolic component to the encephalopathy as evidenced by the triphasic waveforms. 3. Interictal discharges emanating from the right mid temporal and anterior and mid temporal areas. Clinical correlation is recommended. Fredy Carranza M.D., M.S.P.H. Clinical Neurophysiologist DR: MARLON JOB#: [id number] [facility]
--- NOTE | 2020-10-01 16:00 | NUR ---
NURSE NOTES: Spoke to pt's brother. Updated him on pt's current condition. Central line dressing changed d/t not having a biopatch.
[2020-10-01] MEDS ORDERED: levETIRAcetam 1,000mg/NS100ml 100 ML IVPB ONE (17:00)
--- NOTE | 2020-10-01 17:00 | NUR ---
NURSE NOTES: Pt notably twitching; appears to be seizures. Awaiting Keppra from pharmacy as ordered by Dr Starks. Side rails padded and pt placed on seizure precautions.
--- NOTE | 2020-10-01 17:24 | Surgery Progress Note ---
Surgery Progress Note Subjective Additional Comments ill appearing on support Objective Last 24 Hour Vital Signs Date Time Temp Pulse Resp B/P (MAP) Pulse Ox O2 Delivery O2 Flow Rate FiO2 10/01/20 16:30 98 23 123/61 (81) 100 10/01/20 16:00 99.4 100 23 120/66 (84) 100 10/01/20 16:00 40 10/01/20 16:00 100 10/01/20 16:00 Mechanical Ventilator 10/01/20 15:38 105 22 40 10/01/20 15:30 98 26 113/62 (79) 99 10/01/20 15:29 101 27 121/59 (79) 99 10/01/20 15:00 97 27 98 10/01/20 14:30 99 21 129/62 (84) 98 10/01/20 14:00 98 21 126/70 (88) 99 10/01/20 13:00 99 22 108/59 (75) 99 10/01/20 12:00 40 10/01/20 12:00 96 10/01/20 12:00 98.6 96 19 98/54 (69) 96 10/01/20 12:00 Mechanical Ventilator 10/01/20 11:39 95 21 40 10/01/20 11:00 95 18 108/55 (72) 99 10/01/20 10:00 98 17 107/59 (75) 99 10/01/20 09:00 98 23 104/51 (68) 100 10/01/20 08:30 97 16 125/57 (79) 100 10/01/20 08:00 98.7 96 18 110/55 (73) 99 10/01/20 08:00 40 10/01/20 08:00 96 10/01/20 08:00 Mechanical Ventilator 10/01/20 07:48 97 17 40 10/01/20 07:30 97 19 103/57 (72) 99 10/01/20 07:00 97 18 107/57 (74) 100 10/01/20 06:30 100 21 102/55 (71) 100 10/01/20 06:30 82 20 10/01/20 06:00 99 19 98/56 (70) 100 10/01/20 05:21 100 19 40 10/01/20 05:00 103 18 110/57 (74) 100 10/01/20 04:00 50 2/26/21 04:00 102 20 105/53 (70) 99 10/01/20 04:00 Mechanical Ventilator 100.0 10/01/20 04:00 101 10/01/20 03:31 101 22 40 10/01/20 03:00 101 18 113/43 (66) 99 10/01/20 03:00 113/43 10/01/20 02:30 100 17 99 10/01/20 02:00 102/53 10/01/20 02:00 100 18 102/53 (69) 99 10/01/20 01:30 99 18 109/49 (69) 99 10/01/20 01:00 107/53 10/01/20 01:00 98 17 107/53 (71) 99 10/01/20 00:44 98 18 40 10/01/20 00:30 99 16 97/45 (62) 99 10/01/20 00:00 50 10/01/20 00:00 100 17 117/54 (75) 99 10/01/20 00:00 99 10/01/20 00:00 Mechanical Ventilator 100.0 10/01/20 00:00 117/54 09/30/20 23:30 98 16 114/51 (72) 99 09/30/20 23:00 100 16 98/50 (66) 99 09/30/20 23:00 98/50 09/30/20 22:52 100 17 40 09/30/20 22:30 101 16 93/43 (60) 98 09/30/20 22:00 124/52 09/30/20 22:00 102 16 124/52 (76) 99 09/30/20 21:52 101 16 40 09/30/20 21:30 104 16 104/49 (67) 98 09/30/20 21:00 105 16 112/55 (74) 98 09/30/20 21:00 112/55 09/30/20 20:30 105 16 106/63 (77) 98 09/30/20 20:00 40 09/30/20 20:00 98.3 97 31 100 09/30/20 20:00 114/60 09/30/20 20:00 106 16 114/60 (78) 100 09/30/20 20:00 Mechanical Ventilator 100.0 2/25/21 20:00 99 09/30/20 19:17 122 17 40 09/30/20 19:00 122 16 180/77 (111) 100 09/30/20 19:00 161/76 09/30/20 18:00 124 16 115/55 (75) 100 09/30/20 18:00 115/55 I&O Intake and Output 09/30/20 10/01/20 19:00 07:00 Intake Total 2278.125 ml 996.250 ml Output Total 40 ml 0 ml Balance 2238.125 ml 996.250 ml Intake Oral 0 ml IV Total 2278.125 ml 996.250 ml Output Urine Total 40 ml 0 ml Stool Total 0 ml Dressing: saturated Cardiovascular: RSR Respiratory: decreased breath sounds Abdomen: non-tender, present bowel sounds, non-distended Extremities: no tenderness, no cyanosis, other Laboratory Tests Test 09/30/20 18:18 10/01/20 05:25 10/01/20 08:31 10/01/20 12:05 Sodium Level 139 MMOL/L (136-145) 138 MMOL/L (136-145) Potassium Level 5.1 MMOL/L (3.5-5.1) 5.1 MMOL/L (3.5-5.1) Chloride Level 109 MMOL/L (98-107) H 110 MMOL/L (98-107) H Carbon Dioxide Level 15 MMOL/L (21-32) L 18 MMOL/L (21-32) L Anion Gap 15 mmol/L (5-15) 10 mmol/L (5-15) Blood Urea Nitrogen 46 mg/dL (7-18) H 48 mg/dL (7-18) H Creatinine 6.2 MG/DL (0.55-1.30) H 6.7 MG/DL (0.55-1.30) H Estimat Glomerular Filtration Rate 10.7 mL/min (>60) 9.8 mL/min (>60) Glucose Level 167 MG/DL (74-106) H 161 MG/DL (74-106) H Lactic Acid Level 5.20 mmol/L (0.4-2.0) H 2.70 mmol/L (0.4-2.0) H 3.00 mmol/L (0.4-2.0) H Calcium Level 9.2 MG/DL (8.5-10.1) 8.2 MG/DL (8.5-10.1) L Total Bilirubin 0.9 MG/DL (0.2-1.0) 0.9 MG/DL (0.2-1.0) Aspartate Amino Transf (AST/SGOT) 40 U/L (15-37) H 33 U/L (15-37) Alanine Aminotransferase (ALT/SGPT) 34 U/L (12-78) 29 U/L (12-78) Alkaline Phosphatase 81 U/L (46-116) 77 U/L (46-116) Total Protein 5.0 G/DL (6.4-8.2) L 5.0 G/DL (6.4-8.2) L Albumin 1.7 G/DL (3.4-5.0) L 1.6 G/DL (3.4-5.0) L Globulin 3.3 g/dL 3.4 g/dL Albumin/Globulin Ratio 0.5 (1.0-2.7) L 0.5 (1.0-2.7) L Random Vancomycin Level 11.1 ug/mL White Blood Count 11.2 K/UL (4.8-10.8) H Red Blood Count 3.08 M/UL (4.70-6.10) L Hemoglobin 9.4 G/DL (14.2-18.0) L Hematocrit 29.3 % (42.0-52.0) L Mean Corpuscular Volume 95 FL (80-99) Mean Corpuscular Hemoglobin 30.5 PG (27.0-31.0) Mean Corpuscular Hemoglobin Concent 32.0 G/DL (32.0-36.0) Red Cell Distribution Width 17.4 % (11.6-14.8) H Platelet Count 53 K/UL (150-450) L Mean Platelet Volume 12.7 FL (6.5-10.1) H Neutrophils (%) (Auto) % (45.0-75.0) Lymphocytes (%) (Auto) % (20.0-45.0) Monocytes (%) (Auto) % (1.0-10.0) Eosinophils (%) (Auto) % (0.0-3.0) Basophils (%) (Auto) % (0.0-2.0) Differential Total Cells Counted 100 Neutrophils % (Manual) 80 % (45-75) H Lymphocytes % (Manual) 7 % (20-45) L Monocytes % (Manual) 7 % (1-10) Eosinophils % (Manual) 0 % (0-3) Basophils % (Manual) 0 % (0-2) Band Neutrophils 6 % (0-8) Platelet Estimate Decreased L Platelet Morphology Giant Platelets Occasional Hypochromasia 1+ Anisocytosis 1+ Uric Acid 10.0 MG/DL (2.6-7.2) H Phosphorus Level 4.6 MG/DL (2.5-4.9) Magnesium Level 1.8 MG/DL (1.8-2.4) C-Reactive Protein, Quantitative 5.4 mg/dL (0.00-0.90) H Pro-B-Type Natriuretic Peptide 47640 pg/mL (0-125) H Arterial Blood pH 7.392 (7.350-7.450) Arterial Blood Partial Pressure CO2 27.6 mmHg (35.0-45.0) L Arterial Blood Partial Pressure O2 88.2 mmHg (75.0-100.0) Arterial Blood HCO3 16.4 mmol/L (22.0-26.0) *L Arterial Blood Oxygen Saturation 96.1 % (95-100) Arterial Blood Base Excess -7.4 (-2-2) L Onesimo Test Positive D-Dimer 5.84 mg/L FEU (0.00-0.49) H Test 10/01/20 16:30 Random Vancomycin Level 17.9 ug/mL Plan Problems: (1) Cardiopulmonary arrest (2) Septic shock Assessment & Plan: 75 male leukocytosis lactic acidosis septic shock intubated intensive care unit. Unable to give abdominal exam, exam otherwise benign abdominal unlikely etiology imaging reviewed labs reviewed. Continue ventilator support respiratory in nature seemingly. NG tube IV fluids IV antibiotics will follow with recommendations thank you letter participation's care DAILY ESTIMATED NEEDS: Needs based on Critical care 74.2kg 22-28 kcals/kg 8287-9538 total kcals 1.2-2 g protein/kg 89-148 g total protein 25-30 mL/kg 8081-1849 total fluid mLs NUTRITION DIAGNOSIS: Swallowing difficulty r/t respiratory arrest as evidenced by pt intubated, on pressor support, ICU status. ENTERAL NUTRITION RECOMMENDATIONS: As able NEPRO @40ml/hr x24 hrs to provide 960ml, 1728 kcal, 78g pro, 698ml free H2O -When stable for feeds rec renal formula at this time d/t increasing K and phos. -obtain GI access, initiate Nepro @20ml/hr for 6 hrs, advance as tolerated 10ml/hr 2q4-6 hrs to goal -When tolerating TF at goal, add prosource 1 pack BID to better meet est pro needs. -Flush per HOB over 30 degrees. ----> If hemodynamically unstable, rec trophic feeds of Nepro @10ml/hr to maintain gut integrity. ADDITIONAL RECOMMENDATIONS: 1) F/up w/ H&P 2) Maintain D5 IV hydration while NPO 3) Maintain calibrated bed scale wts 4) Non oral feeds when stable (3) Lactic acidosis (4) Failure to thrive (5) Pancytopenia (6) Respiratory failure (7) Hypoxia (8) Pneumonia (9) Respiratory arrest (10) Hypernatremia (11) Renal failure Oni Walker Oct 01, 2020 17:24
--- NOTE | 2020-10-01 17:44 | NUR ---
NURSE NOTES: Dr Starks made aware of D Dimer result (5.84) and left message for Dr Ricketts.
--- NOTE | 2020-10-01 18:45 | NUR ---
NURSE NOTES: Pt fully cleaned and linens changed. Oral care done. Pt continues to have seizure-like twitches. HOB elevated. Pt tolerating tube feeds.
--- NOTE | 2020-10-01 19:16 | NUR ---
NURSE HAND-OFF REPORT: Latest Vital Signs: Temperature 99.4 , Pulse 102 , B/P 118 /67 , Respiratory Rate 22 , O2 SAT 100 , Mechanical Ventilator, FiO2 45% . Vital Sign Comment: EKG Rhythm: Sinus Tachycardia Rhythm change?: N MD Notified?: - MD Response: Latest Carty Fall Score: 50 Fall Risk: High Risk Safety Measures: Call light Within Reach, Bed Alarm Zone 3, Side Rails Side Rails x3, Bed position Low and Locked. Fall Precautions: Yellow Socks Report given to KIRBY Nj.
--- NOTE | 2020-10-01 19:30 | NUR ---
NURSE NOTES: Received report from Emelina [facility].
--- NOTE | 2020-10-01 20:00 | NUR ---
NURSE NOTES: Patient in bed obtunded, Pt is orally intubated ETT 7.5, 23cm @ the lip line. Vent settings: AC 16, TV 500, Fio2 40%, peep of 5, and O2sat is at 99%. no s/s of respiratory distress. NGT intact running Nephro at 20cc/hr with 10cc residual. HOB elevted. . Cartagena catheter is noted, draining well with gravity to urometer. Right IJ TLC noted, dressing site intact, clean, and patent. Running D5 1/2 NS @ 75mL/hr. Call light within reach. bed at the lowest position, alarmed, and locked. standard precaution maintained and observed. Will continue plan of care.
[2020-10-01] MEDS: Dyna-Hex 2% Top Sol 2oz TOPIC SCH (20:05)
[2020-10-01] MEDS ORDERED: Vancomycin 1gm in D5W 275ml IVPB SCH (21:00)
--- NOTE | 2020-10-01 22:00 | NUR ---
NURSE NOTES: Patient DNR. comfort measure provided, no diarrhea. no s/s of acute distress noted. repositioned in bed.will continue plan of care.
[2020-10-01] MEDS: LORazepam Inj 2mg/ml 1ml IV PRN (22:21)
--- NOTE | 2020-10-01 22:21 | NUR ---
NURSE NOTES: noted patient with episode of seizures for 5 minutes body, arm and shoulders twitching Ativan 1mg IVP given for seizures effective. seizures precaution maintained and observed. provided with safe and hazard free environment. padded side rails.frequent visual checks continue. will continue plan of care.
--- NOTE | 2020-10-01 22:48 | NUR ---
NURSE NOTES: BP 63/38 after Ativan dose. Started Levophed at 6mcg/min
--- NOTE | 2020-10-01 23:00 | NUR ---
NURSE NOTES: titrated Levophed to 8mcg/min BP 83/38 HR 94. no episode of seizure activity at this time.
[2020-10-02] VITALS (78 sets, daily range): BP systolic 74–159; BP diastolic 31–109
[2020-10-02] MEDS: Sodium Citrate 30ml NG SCH ×4 (00:44→17:57)
--- NOTE | 2020-10-02 01:00 | NUR ---
NURSE NOTES: Repositioned patient in bed. no s/s of seizure activity. no fever. no s/s of acute distress. will continue plan of care.
--- NOTE | 2020-10-02 03:00 | NUR ---
NURSE NOTES: Bed bath given tolerated well.
[2020-10-02 04:22] LABS: HEMATOCRIT 29.8 % (42.0-52.0); HEMOGLOBIN 9.7 G/DL (14.2-18.0); MEAN CORPUSCULAR VOLUME 95 FL (80-99); PLATELET COUNT 59 K/UL (150-450); RED BLOOD COUNT 3.13 M/UL (4.70-6.10); RED CELL DISTRIBUTION WIDTH 17.6 % (11.6-14.8); WHITE BLOOD COUNT 14.5 K/UL (4.8-10.8)
[2020-10-02 04:57] LABS: ALANINE AMINOTRANSFERASE 27 U/L (12-78); ALBUMIN 1.6 G/DL (3.4-5.0); ALBUMIN/GLOBULIN RATIO 0.5 (1.0-2.7); ALKALINE PHOSPHATASE 75 U/L (46-116); ANION GAP 15 mmol/L (5-15); ASPARTATE AMINO TRANSFERASE 31 U/L (15-37); BILIRUBIN,TOTAL 0.8 MG/DL (0.2-1.0); BLOOD UREA NITROGEN 53 mg/dL (7-18); CALCIUM 8.8 MG/DL (8.5-10.1); CARBON DIOXIDE 16 MMOL/L (21-32); CHLORIDE 106 MMOL/L (98-107); CHOLESTEROL < 50 MG/DL (< 200); GAMMA GLUTAMYL TRANSPEPTIDASE 127 U/L (5-85); HDL CHOLESTEROL 22 MG/DL (40-60); PHOSPHORUS 4.6 MG/DL (2.5-4.9); POTASSIUM 4.8 MMOL/L (3.5-5.1); SODIUM 137 MMOL/L (136-145); TRIGLYCERIDES 46 MG/DL (30-150)
--- NOTE | 2020-10-02 05:00 | NUR ---
NURSE NOTES: Patient in bed Right IJ intact infusing Levophed at 8mcg/min BP 101/61 HR 75. Repositioned patient in bed. no s/s of seizure activity. no fever. no s/s of acute distress. will continue plan of care.
[2020-10-02 05:12] LABS: % IRON SATURATION 95 % (15-50); IRON 40 ug/dL (50-175); TOTAL IRON BINDING CAPACITY 42 ug/dL (250-450)
[2020-10-02] MEDS: Hydrocortisone 100mg Inj IV SCH ×3 (05:54→22:21)
[2020-10-02] MEDS: D5 1/2NS 1,000 ML IV SCH (07:11)
--- NOTE | 2020-10-02 07:30 | NUR ---
NURSE HAND-OFF REPORT: Latest Vital Signs: Temperature 97.0 , Pulse 74 , B/P 109 /52 , Respiratory Rate 22 , O2 SAT 100 , Mechanical Ventilator, O2 Flow Rate 100.0 . Vital Sign Comment: [] EKG Rhythm: Sinus Rhythm Rhythm change?: N MD Notified?: - MD Response: Latest Carty Fall Score: 50 Fall Risk: High Risk Safety Measures: Call light Within Reach, Bed Alarm Zone 3, Side Rails Side Rails x3, Bed position Low and Locked. Fall Precautions: Yellow Socks Report given to [KIRBY Echols].
--- NOTE | 2020-10-02 08:27 | Consultation ---
Consult Note Consult Note NEUROLOGY CONSULTATION DATE OF CONSULTATION: 10/02/2020 [place] MD:Dr. Isaias Starks REASON FOR REFERRAL: Seizure and AMS HPI:This is a 75 year old AA male patient brought in from nursing facility for AMS. He apparently coded and was intubated. According to the ER report he had encephalopathy, his code status is DNR, He is currently in ICU and he is sedated , intubated on the ventilator. An EEG was ordered and revealed short waves consistent with seizure activity. he has been started on Keppra after a loading dose of 1000mg IVPB. Upon chart review i don't see a history of seizures documented nor any seizure medications in med list. He has a DPOA listed in the chart. A CT Head was ordered and revealed No evidence of acute intracranial hemorrhage, mass effect or cortical edema. Atrophy and nonspecific periventricular hypoattenuation suggestive of chronic ischemic microvascular changes. He is not able to provide a history at this time, will contact DPOA for any seizure history. We were consulted for Seizure. Past Medical History: HLD, Atherosclerosis, Anemia, Hypertension, glaucoma Past Surgical History: unknown Social History: Resides in nursing facility, unknown if smoker, drinker or drug use Allergies: NKDA ROS difficult to obtain due to mentation sedation Physical Exam: Limited due to patients status unresponsive comatose, Pupils are sluggish, pupils equal reactive to light corneal reflex absent, gag reflex absent facial symmetric motor: no spontaneous movement in extremities, sensory response does not withdraw to pain Lab Data: reviewed Imaging: EEG reviewed CT Head: No evidence of acute intracranial hemorrhage, mass effect or cortical edema. MRIrecommended for more sensitive evaluation as clinically indicated. Atrophy and nonspecific periventricular hypoattenuation suggestive of chronic i schemic microvascular changes. Assessment And Rec's 1. Anoxic Encephalopathy --> EEG revealed short waves consistent with seizure activity --> S/p recent CODE Blue and intubation --> CT head reviewed as above 2. Abnormal EEG --> Possible subclinical seizure activity, it is not definitive --> Will start patient on presumptive seizure medication, Agree with Keppra 500mg IV BID for now 3. Acute hypoxemic respiratory failure --> s/p intubation on vent 4. Questionable Pneumonia vs other ---> on abx Covid Ag is NEGATIVE, PCR sent and pending. PUI status 5. Anemia 6. FTT --> Supportive care Thank you for allowing us to participate in patient's care, plan of care was discussed with Dr. Jose Armando Camarena who agrees and has reviewed EEG results. Stacy Hinds SKILLS AUDITOR Oct 02, 2020 08:27
--- NOTE | 2020-10-02 09:24 | Surgery Progress Note ---
Surgery Progress Note Subjective Additional Comments right IJ will transition to picc sunday on support weaning min response labs noted Objective Last 24 Hour Vital Signs Date Time Temp Pulse Resp B/P (MAP) Pulse Ox O2 Delivery O2 Flow Rate FiO2 10/02/20 08:07 100 10/02/20 07:12 69 25 40 10/02/20 07:00 109/52 10/02/20 07:00 74 22 109/62 (78) 100 10/02/20 06:30 72 22 10/02/20 06:00 105/56 10/02/20 06:00 74 20 103/59 (74) 100 10/02/20 05:00 97.0 79 22 90/58 (69) 100 10/02/20 05:00 101/61 10/02/20 04:59 98 19 40 10/02/20 04:00 40 10/02/20 04:00 67 10/02/20 04:00 105/67 10/02/20 04:00 Mechanical Ventilator 10/02/20 04:00 99.0 89 18 126/77 (93) 100 10/02/20 03:04 92 17 40 10/02/20 03:00 88 19 136/73 (94) 100 10/02/20 03:00 142/81 10/02/20 02:30 79 21 103/83 (90) 100 10/02/20 02:00 105/61 10/02/20 02:00 83 21 114/59 (77) 100 10/02/20 01:30 82 18 109/56 (73) 100 10/02/20 01:00 125/73 10/02/20 01:00 85 20 104/56 (72) 100 10/02/20 00:24 99 19 40 10/02/20 00:00 103/49 10/02/20 00:00 40 10/02/20 00:00 99.0 86 22 100/58 (72) 100 10/02/20 00:00 87 10/02/20 00:00 Mechanical Ventilator 10/01/20 23:00 83/38 10/01/20 23:00 93 21 83/38 (53) 99 10/01/20 22:54 95 22 40 10/01/20 22:51 95 22 63/38 97 10/01/20 22:45 63/38 10/01/20 22:21 105 24 114/66 97 10/01/20 22:00 105 24 114/66 (82) 97 10/01/20 21:25 100 19 40 10/01/20 21:00 98 21 108/45 (66) 100 10/01/20 20:00 99.0 99 22 102/48 (66) 100 10/01/20 20:00 Mechanical Ventilator 10/01/20 20:00 40 10/01/20 20:00 101 10/01/20 19:11 102 22 40 10/01/20 19:00 102 22 118/67 (84) 100 10/01/20 18:00 100 22 119/66 (83) 100 10/01/20 17:30 99 22 126/70 (88) 100 10/01/20 17:00 99 24 115/62 (79) 95 10/01/20 16:30 98 23 123/61 (81) 100 10/01/20 16:00 99.4 100 23 120/66 (84) 100 10/01/20 16:00 40 10/01/20 16:00 100 10/01/20 16:00 Mechanical Ventilator 10/01/20 15:38 105 22 40 10/01/20 15:30 98 26 113/62 (79) 99 10/01/20 15:29 101 27 121/59 (79) 99 10/01/20 15:00 97 27 98 10/01/20 14:30 99 21 129/62 (84) 98 10/01/20 14:00 98 21 126/70 (88) 99 10/01/20 13:00 99 22 108/59 (75) 99 10/01/20 12:00 40 10/01/20 12:00 96 10/01/20 12:00 98.6 96 19 98/54 (69) 96 10/01/20 12:00 Mechanical Ventilator 10/01/20 11:39 95 21 40 10/01/20 11:00 95 18 108/55 (72) 99 10/01/20 10:00 98 17 107/59 (75) 99 I&O Intake and Output 10/01/20 10/02/20 19:00 07:00 Intake Total 1330.0 ml 1844.955 ml Output Total 25 ml 15 ml Balance 1305.0 ml 1829.955 ml Free Water 100 ml IV Total 1110.0 ml 1324.955 ml Tube Feeding 120 ml 240 ml Other 100 ml 180 ml Output Urine Total 25 ml 15 ml # Bowel Movements 2 Dressing: saturated Cardiovascular: RSR Respiratory: decreased breath sounds Abdomen: non-tender, present bowel sounds, non-distended Extremities: edema, no cyanosis Laboratory Tests Test 10/01/20 12:05 10/01/20 16:30 10/01/20 18:25 10/02/20 03:45 D-Dimer 5.84 mg/L FEU (0.00-0.49) H Lactic Acid Level 3.00 mmol/L (0.4-2.0) H 4.10 mmol/L (0.4-2.0) H 3.60 mmol/L (0.4-2.0) H Random Vancomycin Level 17.9 ug/mL White Blood Count 14.5 K/UL (4.8-10.8) H Red Blood Count 3.13 M/UL (4.70-6.10) L Hemoglobin 9.7 G/DL (14.2-18.0) L Hematocrit 29.8 % (42.0-52.0) L Mean Corpuscular Volume 95 FL (80-99) Mean Corpuscular Hemoglobin 30.8 PG (27.0-31.0) Mean Corpuscular Hemoglobin Concent 32.4 G/DL (32.0-36.0) Red Cell Distribution Width 17.6 % (11.6-14.8) H Platelet Count 59 K/UL (150-450) L Mean Platelet Volume 12.9 FL (6.5-10.1) H Neutrophils (%) (Auto) % (45.0-75.0) Lymphocytes (%) (Auto) % (20.0-45.0) Monocytes (%) (Auto) % (1.0-10.0) Eosinophils (%) (Auto) % (0.0-3.0) Basophils (%) (Auto) % (0.0-2.0) Differential Total Cells Counted 100 Neutrophils % (Manual) 85 % (45-75) H Lymphocytes % (Manual) 4 % (20-45) L Monocytes % (Manual) 5 % (1-10) Eosinophils % (Manual) 0 % (0-3) Basophils % (Manual) 0 % (0-2) Band Neutrophils 6 % (0-8) Platelet Estimate Decreased L Platelet Morphology Giant Platelets Occasional Polychromasia 1+ Hypochromasia 1+ Anisocytosis 1+ Holland Cells Occasional Sodium Level 137 MMOL/L (136-145) Potassium Level 4.8 MMOL/L (3.5-5.1) Chloride Level 106 MMOL/L (98-107) Carbon Dioxide Level 16 MMOL/L (21-32) L Anion Gap 15 mmol/L (5-15) Blood Urea Nitrogen 53 mg/dL (7-18) H Creatinine 7.0 MG/DL (0.55-1.30) H Estimat Glomerular Filtration Rate 9.3 mL/min (>60) Glucose Level 209 MG/DL (74-106) H Hemoglobin A1c 5.4 % (4.3-6.0) Uric Acid 9.4 MG/DL (2.6-7.2) H Calcium Level 8.8 MG/DL (8.5-10.1) Phosphorus Level 4.6 MG/DL (2.5-4.9) Magnesium Level 2.4 MG/DL (1.8-2.4) Iron Level 40 ug/dL (50-175) L Total Iron Binding Capacity 42 ug/dL (250-450) L Percent Iron Saturation 95 % (15-50) H Unsaturated Iron Binding 2 ug/dL (112-346) L Total Bilirubin 0.8 MG/DL (0.2-1.0) Gamma Glutamyl Transpeptidase 127 U/L (5-85) H Aspartate Amino Transf (AST/SGOT) 31 U/L (15-37) Alanine Aminotransferase (ALT/SGPT) 27 U/L (12-78) Alkaline Phosphatase 75 U/L (46-116) Troponin I 0.159 ng/mL (0.000-0.056) C-Reactive Protein, Quantitative 4.2 mg/dL (0.00-0.90) H Pro-B-Type Natriuretic Peptide 8946 pg/mL (0-125) H Total Protein 5.1 G/DL (6.4-8.2) L Albumin 1.6 G/DL (3.4-5.0) L Globulin 3.5 g/dL Albumin/Globulin Ratio 0.5 (1.0-2.7) L Triglycerides Level 46 MG/DL (30-150) Cholesterol Level < 50 MG/DL (< 200) LDL Cholesterol 7 mg/dL (<100) HDL Cholesterol 22 MG/DL (40-60) L Cholesterol/HDL Ratio 2.3 (3.3-4.4) L Lipase 44 U/L (73-393) L Vitamin B12 Level > 2000 PG/ML (193-986) H Folate 17.7 NG/ML (8.6-58.9) Thyroid Stimulating Hormone (TSH) 2.100 uiU/mL (0.358-3.740) Plan Problems: (1) Cardiopulmonary arrest (2) Septic shock Assessment & Plan: 75 male leukocytosis lactic acidosis septic shock intubated intensive care unit. Unable to give abdominal exam, exam otherwise benign abdominal unlikely etiology imaging reviewed labs reviewed. Continue ventilator support respiratory in nature seemingly. NG tube IV fluids IV antibiotics will follow with recommendations thank you letter participation's care DAILY ESTIMATED NEEDS: Needs based on Critical care 74.2kg 22-28 kcals/kg 9854-5498 total kcals 1.2-2 g protein/kg 89-148 g total protein 25-30 mL/kg 0563-5771 total fluid mLs NUTRITION DIAGNOSIS: Swallowing difficulty r/t respiratory arrest as evidenced by pt intubated, on pressor support, ICU status. ENTERAL NUTRITION RECOMMENDATIONS: As able NEPRO @40ml/hr x24 hrs to provide 960ml, 1728 kcal, 78g pro, 698ml f ree H2O -When stable for feeds rec renal formula at this time d/t increasing K and phos. -obtain GI access, initiate Nepro @20ml/hr for 6 hrs, advance as tolerated 10ml/hr 2q4-6 hrs to goal -When tolerating TF at goal, add prosource 1 pack BID to better meet est pro needs. -Flush per HOB over 30 degrees. ----> If hemodynamically unstable, rec trophic feeds of Nepro @10ml/hr to maintain gut integrity. ADDITIONAL RECOMMENDATIONS: 1) F/up w/ H&P 2) Maintain D5 IV hydration while NPO 3) Maintain calibrated bed scale wts 4) Non oral feeds when stable (3) Lactic acidosis (4) Failure to thrive (5) Pancytopenia (6) Respiratory failure (7) Hypoxia (8) Pneumonia (9) Respiratory arrest (10) Hypernatremia (11) Renal failure Oni Walker Oct 02, 2020 09:24
[2020-10-02] MEDS ORDERED: VITAMIN C500 M1 ORAL (09:31)
[2020-10-02] MEDS ORDERED: MIRTAZAPINE15 M3 ORAL (09:31)
[2020-10-02] MEDS ORDERED: MULTIVITAMINS1 EAC8 ORAL (09:31)
[2020-10-02] MEDS ORDERED: SENNA8.6 M2 PO (09:31)
[2020-10-02] MEDS ORDERED: ACETAMINOPHEN500 M3 ORAL (09:31)
[2020-10-02] MEDS ORDERED: BETADINE1 EAC1 TP (09:31)
[2020-10-02] MEDS ORDERED: BISACODYL10 M1 RC (09:31)
[2020-10-02] MEDS ORDERED: MINERAL OIL EN133 ML RC (09:31)
[2020-10-02] MEDS ORDERED: ATORVASTATIN CA20 MG ORAL (09:31)
[2020-10-02] MEDS ORDERED: [UNRECOGNIZED DRUG - OTHER] TOPIC (09:31)
[2020-10-02] MEDS ORDERED: SORBITOL 70%30 ML PO (09:31)
[2020-10-02] MEDS: Piperacillin/Tazobactam 3.375 GM in NS 110 ML IVPB SCH ×2 (09:51→20:46)
[2020-10-02] MEDS: levETIRAcetam 500mg/NS100ml 100 ML IVPB SCH ×2 (09:52→20:46)
[2020-10-02] MEDS: Allopurinol 100mg Tab NG SCH (09:52)
[2020-10-02] MEDS: LORazepam Inj 2mg/ml 1ml IV PRN (10:00)
--- NOTE | 2020-10-02 11:22 | Pulmonology Progress Note ---
Subjective ROS Limited/Unobtainable: Yes Interval Events: No change; remains intubated Constitutional: Reports: no symptoms HEENT: Repors: no symptoms Respiratory: Reports: no symptoms Cardiovascular: Reports: no symptoms Gastrointestinal/Abdominal: Reports: no symptoms Genitourinary: Reports: no symptoms Allergies: Coded Allergies: No Known Allergies (Unverified , 09/13/20) Objective Last 24 Hour Vital Signs Date Time Temp Pulse Resp B/P (MAP) Pulse Ox O2 Delivery O2 Flow Rate FiO2 10/02/20 10:00 86 23 151/71 (97) 100 10/02/20 10:00 86 22 159/103 100 10/02/20 09:00 72 23 119/67 (84) 100 10/02/20 08:07 100 10/02/20 08:00 73 22 117/63 (81) 100 10/02/20 08:00 73 10/02/20 08:00 40 10/02/20 07:12 69 25 40 10/02/20 07:00 109/52 10/02/20 07:00 74 22 109/62 (78) 100 10/02/20 06:30 72 22 10/02/20 06:00 105/56 10/02/20 06:00 74 20 103/59 (74) 100 10/02/20 05:00 97.0 79 22 90/58 (69) 100 10/02/20 05:00 101/61 10/02/20 04:59 98 19 40 10/02/20 04:00 40 10/02/20 04:00 67 10/02/20 04:00 105/67 10/02/20 04:00 Mechanical Ventilator 10/02/20 04:00 99.0 89 18 126/77 (93) 100 10/02/20 03:04 92 17 40 10/02/20 03:00 88 19 136/73 (94) 100 10/02/20 03:00 142/81 10/02/20 02:30 79 21 103/83 (90) 100 10/02/20 02:00 105/61 10/02/20 02:00 83 21 114/59 (77) 100 10/02/20 01:30 82 18 109/56 (73) 100 10/02/20 01:00 125/73 10/02/20 01:00 85 20 104/56 (72) 100 10/02/20 00:24 99 19 40 10/02/20 00:00 103/49 10/02/20 00:00 40 10/02/20 00:00 99.0 86 22 100/58 (72) 100 10/02/20 00:00 87 10/02/20 00:00 Mechanical Ventilator 10/01/20 23:00 83/38 10/01/20 23:00 93 21 83/38 (53) 99 10/01/20 22:54 95 22 40 10/01/20 22:51 95 22 63/38 97 10/01/20 22:45 63/38 10/01/20 22:21 105 24 114/66 97 10/01/20 22:00 105 24 114/66 (82) 97 10/01/20 21:25 100 19 40 10/01/20 21:00 98 21 108/45 (66) 100 10/01/20 20:00 99.0 99 22 102/48 (66) 100 10/01/20 20:00 Mechanical Ventilator 10/01/20 20:00 40 10/01/20 20:00 101 10/01/20 19:11 102 22 40 10/01/20 19:00 102 22 118/67 (84) 100 10/01/20 18:00 100 22 119/66 (83) 100 10/01/20 17:30 99 22 126/70 (88) 100 10/01/20 17:00 99 24 115/62 (79) 95 10/01/20 16:30 98 23 123/61 (81) 100 10/01/20 16:00 99.4 100 23 120/66 (84) 100 10/01/20 16:00 40 10/01/20 16:00 100 10/01/20 16:00 Mechanical Ventilator 10/01/20 15:38 105 22 40 10/01/20 15:30 98 26 113/62 (79) 99 10/01/20 15:29 101 27 121/59 (79) 99 10/01/20 15:00 97 27 98 10/01/20 14:30 99 21 129/62 (84) 98 10/01/20 14:00 98 21 126/70 (88) 99 10/01/20 13:00 99 22 108/59 (75) 99 10/01/20 12:00 40 10/01/20 12:00 96 10/01/20 12:00 98.6 96 19 98/54 (69) 96 10/01/20 12:00 Mechanical Ventilator 10/01/20 11:39 95 21 40 Intake and Output 10/01/20 10/02/20 19:00 07:00 Intake Total 1330.0 ml 1844.955 ml Output Total 25 ml 15 ml Balance 1305.0 ml 1829.955 ml Free Water 100 ml IV Total 1110.0 ml 1324.955 ml Tube Feeding 120 ml 240 ml Other 100 ml 180 ml Output Urine Total 25 ml 15 ml # Bowel Movements 2 General Appearance: no acute distress HEENT: normocephalic Respiratory: chest wall non-tender Cardiovascular: normal peripheral pulses Abdomen: normal bowel sounds Microbiology Date/Time Source Procedure Growth Status 10/01/20 08:15 Sputum Gram Stain - Final Resulted 10/01/20 08:15 Sputum Culture - Preliminary Gram Negative Bacillus 1 Resulted 09/30/20 14:30 Indwelling Cath Urine Culture - Preliminary NO GROWTH AFTER 24 HOURS Resulted 09/30/20 11:00 Nasopharynx Coronavirus COVID-19 PCR ([facility]) - Final Complete 09/30/20 02:33 Rectum - Final NO CARBAPENEM-RESISTANT ENTEROBACTERI... Complete 09/30/20 02:33 Rectum VRE Culture - Final NO VANCOMYCIN RESISTANT ENTEROCOCCUS ... Complete 09/30/20 02:33 Nasal Nares MRSA Culture - Final NO METHICILLIN RESISTANT STAPH AUREUS... Complete 09/29/20 22:35 Blood Blood Culture - Preliminary Staphylococcus Sp Coag Neg Resulted 09/29/20 22:20 Blood Blood Culture - Preliminary Resulted 09/29/20 11:30 Nasopharynx SARS-CoV-2 Antigen (Rapid)([facility]) - Final Complete Laboratory Tests 10/01/20 12:05: D-Dimer 5.84H, Lactic Acid Level 3.00H 10/01/20 16:30: Random Vancomycin Level 17.9 10/01/20 18:25: Lactic Acid Level 4.10H 10/02/20 03:45: Lactic Acid Level 3.60H, White Blood Count 14.5H, Red Blood Count 3.13L, Hemoglobin 9.7L, Hematocrit 29.8L, Mean Corpuscular Volume 95, Mean Corpuscular Hemoglobin 30.8, Mean Corpuscular Hemoglobin Concent 32.4, Red Cell Distribution Width 17.6H, Platelet Count 59L, Mean Platelet Volume 12.9H, Neutrophils (%) (Auto) , Lymphocytes (%) (Auto) , Monocytes (%) (Auto) , Eosinophils (%) (Auto) , Basophils (%) (Auto) , Differential Total Cells Counted 100, Neutrophils % (Manual) 85H, Lymphocytes % (Manual) 4L, Monocytes % (Manual) 5, Eosinophils % (Manual) 0, Basophils % (Manual) 0, Band Neutrophils 6, Platelet Estimate DecreasedL, Platelet Morphology , Giant Platelets Occasional, Polychromasia 1+, Hypochromasia 1+, Anisocytosis 1+, Miki Cells Occasional, Sodium Level 137, Potassium Level 4.8, Chloride Level 106, Carbon Dioxide Level 16L, Anion Gap 15, Blood Urea Nitrogen 53H, Creatinine 7.0H, Estimat Glomerular Filtration Rate 9.3, Glucose Level 209H, Hemoglobin A1c 5.4, Uric Acid 9.4H, Calcium Level 8.8, Phosphorus Level 4.6, Magnesium Level 2.4, Iron Level 40L, Total Iron Binding Capacity 42L, Percent Iron Saturation 95H, Unsaturated Iron Binding 2L, Total Bilirubin 0.8, Gamma Glutamyl Transpeptidase 127H, Aspartate Amino Transf (AST/SGOT) 31, Alanine Aminotransferase (ALT/SGPT) 27, Alkaline Phosphatase 75, Troponin I 0.159H, C-Reactive Protein, Quantitative 4.2H, Pro-B-Type Natriuretic Peptide 8946H, Total Protein 5.1L, Albumin 1.6L, Globulin 3.5, Albumin/Globulin Ratio 0.5L, Triglycerides Level 46, Cholesterol Level < 50, LDL Cholesterol 7, HDL Cholesterol 22L, Cholesterol/HDL Ratio 2.3L, Lipase 44L, Vitamin B12 Level > 2000H, Folate 17.7, Thyroid Stimulating Hormone (TSH) 2.100 10/02/20 09:26: Arterial Blood pH 7.408, Arterial Blood Partial Pressure CO2 25.5L, Arterial Blood Partial Pressure O2 149.0H, Arterial Blood HCO3 15.7*L, Arterial Blood Oxygen Saturation 98.2, Arterial Blood Base Excess -7.7L, Onesimo Test Positive Current Medications Medications (Trade) Dose Ordered Sig/Alfredo Route PRN Reason Start Time Stop Time Status Last Admin Dose Admin Acetaminophen (Tylenol) 650 mg EVERY 6 HOURS PRN NG Temp >100.5 09/30/20 02:30 10/30/20 02:29 Allopurinol (Zyloprim) 100 mg DAILY NG 10/01/20 12:00 10/31/20 11:59 10/02/20 09:52 Chlorhexidine Gluconate (Babita-Hex 2%) 1 applic DAILY@2000 TOPIC 09/30/20 20:00 12/29/20 19:59 10/01/20 20:05 Dextrose (Dextrose 50%) 25 ml Q30M PRN IV Hypoglycemia 09/30/20 02:30 12/29/20 02:29 Dextrose (Dextrose 50%) 50 ml Q30M PRN IV Hypoglycemia 09/30/20 02:30 12/29/20 02:29 Dextrose/Sodium Chloride 1,000 ml @ 75 mls/hr [id number] IV 09/30/20 03:30 10/30/20 03:29 10/02/20 07:11 Famotidine (Pepcid I.v.) 20 mg DAILY IVP 09/30/20 10:00 10/30/20 09:59 10/02/20 09:52 Hydrocortisone (Solu-CORTEF) 100 mg EVERY 8 HOURS IV 09/30/20 14:00 12/29/20 13:59 10/02/20 05:54 Levetiracetam 100 ml @ 400 mls/hr Q12HR IVPB 10/02/20 09:00 12/31/20 08:59 10/02/20 09:52 Lorazepam (Ativan 2mg/ml 1ml) 1 mg Q4H PRN IV For Seizures 10/01/20 16:00 10/08/20 15:59 10/02/20 10:00 Norepinephrine Bitartrate 8 mg/ Dextrose 250 ml @ 0 mls/hr Q24H IV 09/30/20 02:30 10/03/20 02:29 10/01/20 22:45 Piperacillin Sod/ Tazobactam Sod 3.375 gm/Sodium Chloride 110 ml @ 27.5 mls/hr Q12HR IVPB 09/30/20 09:00 10/07/20 08:59 10/02/20 09:51 Sodium Citrate (Bicitra) 30 ml EVERY 6 HOURS NG 10/01/20 12:00 3/28/21 11:59 10/02/20 05:54 Vancomycin HCl ([facility] pharmacy to dose) 1 ea DAILY PRN MISC Per rx protocol 09/30/20 10:00 10/30/20 09:59 Assessment/Plan Assessment/Plan IMPRESSION: 1. Respiratory failure. 2. Multiple medical problems consisting of hypertension, thalassemia, chronic pancreatitis, GERD, neuropathy, and depression. 3. Shock; on pressors 4. Acute renal failure and metabolic acidosis 5. Lactic acidemia 6. AMS; CT brain negative DISCUSSION: Code status needs to be discussed with family. Currently the patient is intubated. I will continue AC mode. Wean as tolerated but will not extubate till more duong ke and off pressors He has been started on fluids. DVT and GI prophylaxis. Broad-spectrum antibiotics. I will follow carefully. Bicarb supplementation ABG adequate Dennis Benavidez M.D. Dennis Benavidez MD Oct 02, 2020 11:22
--- NOTE | 2020-10-02 13:45 | Nephrology Progress Note ---
Assessment/Plan Problem List: (1) COURTNEY (acute kidney injury) (2) Cardiopulmonary arrest (3) Respiratory failure (4) Septic shock Assessment Acute renal failure Septic shock Acute respiratory failure CODE STATUS now DNR Plan October 02: Remains on low-dose pressors today almost anuric. Discussed with KIRBY Shook. Labs reviewed. Medication list reviewed. Trial of albumin and Lasix. Continue to monitor renal parameters. Patient DNR. FiO2 40% October 01: Patient clinically more stable. Discussed with KIRBY Tarango. Patient off pressors. ABG improved. Serum creatinine worse. Will start the patient on Bicitra and allopurinol through NG tube. Continue to monitor renal parameters. Per orders. Patient currently DNR. Previously: Pulmonary support Pressors Antibiotics Hydrocortisone Per orders Subjective ROS Limited/Unobtainable: Yes Objective Objective Last 24 Hour Vital Signs Date Time Temp Pulse Resp B/P (MAP) Pulse Ox O2 Delivery O2 Flow Rate FiO2 10/02/20 13:14 94/63 10/02/20 12:00 40 10/02/20 11:00 85 26 110/71 (84) 100 10/02/20 10:00 86 23 151/71 (97) 100 10/02/20 10:00 86 22 159/103 100 10/02/20 09:00 72 23 119/67 (84) 100 10/02/20 08:07 100 10/02/20 08:00 73 22 117/63 (81) 100 10/02/20 08:00 73 10/02/20 08:00 40 10/02/20 08:00 40 10/02/20 07:30 40 10/02/20 07:12 69 25 40 10/02/20 07:00 109/52 10/02/20 07:00 74 22 109/62 (78) 100 10/02/20 06:30 72 22 10/02/20 06:00 105/56 10/02/20 06:00 74 20 103/59 (74) 100 10/02/20 05:00 97.0 79 22 90/58 (69) 100 10/02/20 05:00 101/61 10/02/20 04:59 98 19 40 10/02/20 04:00 40 10/02/20 04:00 67 10/02/20 04:00 105/67 10/02/20 04:00 Mechanical Ventilator 10/02/20 04:00 99.0 89 18 126/77 (93) 100 10/02/20 03:04 92 17 40 10/02/20 03:00 88 19 136/73 (94) 100 10/02/20 03:00 142/81 10/02/20 02:30 79 21 103/83 (90) 100 10/02/20 02:00 105/61 10/02/20 02:00 83 21 114/59 (77) 100 10/02/20 01:30 82 18 109/56 (73) 100 10/02/20 01:00 125/73 10/02/20 01:00 85 20 104/56 (72) 100 10/02/20 00:24 99 19 40 10/02/20 00:00 103/49 10/02/20 00:00 40 10/02/20 00:00 99.0 86 22 100/58 (72) 100 10/02/20 00:00 87 10/02/20 00:00 Mechanical Ventilator 10/01/20 23:00 83/38 10/01/20 23:00 93 21 83/38 (53) 99 10/01/20 22:54 95 22 40 10/01/20 22:51 95 22 63/38 97 10/01/20 22:45 63/38 10/01/20 22:21 105 24 114/66 97 10/01/20 22:00 105 24 114/66 (82) 97 10/01/20 21:25 100 19 40 10/01/20 21:00 98 21 108/45 (66) 100 10/01/20 20:00 99.0 99 22 102/48 (66) 100 10/01/20 20:00 Mechanical Ventilator 10/01/20 20:00 40 10/01/20 20:00 101 10/01/20 19:11 102 22 40 10/01/20 19:00 102 22 118/67 (84) 100 10/01/20 18:00 100 22 119/66 (83) 100 10/01/20 17:30 99 22 126/70 (88) 100 10/01/20 17:00 99 24 115/62 (79) 95 10/01/20 16:30 98 23 123/61 (81) 100 10/01/20 16:00 99.4 100 23 120/66 (84) 100 10/01/20 16:00 40 10/01/20 16:00 100 10/01/20 16:00 Mechanical Ventilator 10/01/20 15:38 105 22 40 10/01/20 15:30 98 26 113/62 (79) 99 10/01/20 15:29 101 27 121/59 (79) 99 10/01/20 15:00 97 27 98 10/01/20 14:30 99 21 129/62 (84) 98 10/01/20 14:00 98 21 126/70 (88) 99 Intake and Output 10/01/20 10/02/20 19:00 07:00 Intake Total 1330.0 ml 1844.955 ml Output Total 25 ml 15 ml Balance 1305.0 ml 1829.955 ml Free Water 100 ml IV Total 1110.0 ml 1324.955 ml Tube Feeding 120 ml 240 ml Other 100 ml 180 ml Output Urine Total 25 ml 15 ml # Bowel Movements 2 Current Medications Medications (Trade) Dose Ordered Sig/Alfredo Route PRN Reason Start Time Stop Time Status Last Admin Dose Admin Acetaminophen (Tylenol) 650 mg EVERY 6 HOURS PRN NG Temp >100.5 09/30/20 02:30 10/30/20 02:29 Allopurinol (Zyloprim) 100 mg DAILY NG 10/01/20 12:00 10/31/20 11:59 10/02/20 09:52 Chlorhexidine Gluconate (Babita-Hex 2%) 1 applic DAILY@2000 TOPIC 09/30/20 20:00 12/29/20 19:59 10/01/20 20:05 Dextrose (Dextrose 50%) 25 ml Q30M PRN IV Hypoglycemia 09/30/20 02:30 12/29/20 02:29 Dextrose (Dextrose 50%) 50 ml Q30M PRN IV Hypoglycemia 09/30/20 02:30 12/29/20 02:29 Dextrose/Sodium Chloride 1,000 ml @ 75 mls/hr [id number] IV 09/30/20 03:30 10/30/20 03:29 10/02/20 07:11 Famotidine (Pepcid I.v.) 20 mg DAILY IVP 09/30/20 10:00 10/30/20 09:59 10/02/20 09:52 Hydrocortisone (Solu-CORTEF) 100 mg EVERY 8 HOURS IV 09/30/20 14:00 12/29/20 13:59 10/02/20 13:13 Levetiracetam 100 ml @ 400 mls/hr Q12HR IVPB 10/02/20 09:00 12/31/20 08:59 10/02/20 09:52 Lorazepam (Ativan 2mg/ml 1ml) 1 mg Q4H PRN IV For Seizures 10/01/20 16:00 10/08/20 15:59 10/02/20 10:00 Norepinephrine Bitartrate 8 mg/ Dextrose 250 ml @ 0 mls/hr Q24H IV 09/30/20 02:30 10/03/20 02:29 10/02/20 13:14 Piperacillin Sod/ Tazobactam Sod 3.375 gm/Sodium Chloride 110 ml @ 27.5 mls/hr Q12HR IVPB 09/30/20 09:00 10/07/20 08:59 10/02/20 09:51 Sodium Citrate (Bicitra) 30 ml EVERY 6 HOURS NG 10/01/20 12:00 10/31/20 11:59 10/02/20 13:13 Vancomycin HCl ([facility] pharmacy to dose) 1 ea DAILY PRN MISC Per rx protocol 09/30/20 10:00 10/30/20 09:59 Laboratory Tests 10/01/20 16:30: Random Vancomycin Level 17.9 10/01/20 18:25: Lactic Acid Level 4.10H 10/02/20 03:45: Lactic Acid Level 3.60H, White Blood Count 14.5H, Red Blood Count 3.13L, Hemoglobin 9.7L, Hematocrit 29.8L, Mean Corpuscular Volume 95, Mean Corpuscular Hemoglobin 30.8, Mean Corpuscular Hemoglobin Concent 32.4, Red Cell Distribution Width 17.6H, Platelet Count 59L, Mean Platelet Volume 12.9H, Neutrophils (%) (Auto) , Lymphocytes (%) (Auto) , Monocytes (%) (Auto) , Eosinophils (%) (Auto) , Basophils (%) (Auto) , Differential Total Cells Counted 100, Neutrophils % (Manual) 85H, Lymphocytes % (Manual) 4L, Monocytes % (Manual) 5, Eosinophils % (Manual) 0, Basophils % (Manual) 0, Band Neutrophils 6, Platelet Estimate DecreasedL, Platelet Morphology , Giant Platelets Occasional, Polychromasia 1+, Hypochromasia 1+, Anisocytosis 1+, Miki Cells Occasional, Sodium Level 137, Potassium Level 4.8, Chloride Level 106, Carbon Dioxide Level 16L, Anion Gap 15, Blood Urea Nitrogen 53H, Creatinine 7.0H, Estimat Glomerular Filtration Rate 9.3, Glucose Level 209H, Hemoglobin A1c 5.4, Uric Acid 9.4H, Calcium Level 8.8, Phosphorus Level 4.6, Magnesium Level 2.4, Iron Level 40L, Total Iron Binding Capacity 42L, Percent Iron Saturation 95H, Unsaturated Iron Binding 2L, Total Bilirubin 0.8, Gamma Glutamyl Transpeptidase 127H, Aspartate Amino Transf (AST/SGOT) 31, Alanine Aminotransferase (ALT/SGPT) 27, Alkaline Phosphatase 75, Troponin I 0.159H, C-Reactive Protein, Quantitative 4.2H, Pro-B-Type Natriuretic Peptide 8946H, Total Protein 5.1L, Albumin 1.6L, Globulin 3.5, Albumin/Globulin Ratio 0.5L, Triglycerides Level 46, Cholesterol Level < 50, LDL Cholesterol 7, HDL Cholesterol 22L, Cholesterol/HDL Ratio 2.3L, Lipase 44L, Vitamin B12 Level > 2000H, Folate 17.7, Thyroid Stimulating Hormone (TSH) 2.100 10/02/20 09:26: Arterial Blood pH 7.408, Arterial Blood Partial Pressure CO2 25.5L, Arterial Blood Partial Pressure O2 149.0H, Arterial Blood HCO3 15.7*L, Arterial Blood Oxygen Saturation 98.2, Arterial Blood Base Excess -7.7L, Onesimo Test Positive Height (Feet): 6 Height (Inches): 8.00 Weight (Pounds): 165 General Appearance: no apparent distress EENT: other - Intubated on ventilator Cardiovascular: normal rate Respiratory/Chest: decreased breath sounds Abdomen: distended Angel Whitehead MD Oct 02, 2020 13:45
--- NOTE | 2020-10-02 15:25 | NUR ---
CASE MANAGEMENT:REVIEW 10/02/20 SI: RESPIRATORY FAILURE~ INTUBATED. AC RENAL FAILURE 97.3 84 24 94/63 100% ON VENT SUPPORT W/40% FIO2 WBC+14.5 H/H-9.7/29.8 PLT-59 BUN+53 CR+7.0 TROPONIN(+) 0.159 IS: IV LASIX X1 IV ALBUMIN X1 IV KEPPRA Q12 IV ATIVAN Q4 PRN SEIZURES IV SOLUCORTEF Q8 IV ZOSYN Q12 IVF@75/HR LEVOPHED GTT : ICU STATUS
--- NOTE | 2020-10-02 17:02 | Internal Med Progress Note ---
Subjective Date of Service: Oct 02, 2020 Physician Name Semaj Kay Attending Physician Ken Hutton MD Current Medications Medications (Trade) Dose Ordered Sig/Alfredo Route PRN Reason Start Time Stop Time Status Last Admin Dose Admin Acetaminophen (Tylenol) 650 mg EVERY 6 HOURS PRN NG Temp >100.5 09/30/20 02:30 10/30/20 02:29 Allopurinol (Zyloprim) 100 mg DAILY NG 10/01/20 12:00 10/31/20 11:59 10/02/20 09:52 Chlorhexidine Gluconate (Babita-Hex 2%) 1 applic DAILY@2000 TOPIC 09/30/20 20:00 12/29/20 19:59 10/01/20 20:05 Dextrose (Dextrose 50%) 25 ml Q30M PRN IV Hypoglycemia 09/30/20 02:30 12/29/20 02:29 Dextrose (Dextrose 50%) 50 ml Q30M PRN IV Hypoglycemia 09/30/20 02:30 12/29/20 02:29 Dextrose/Sodium Chloride 1,000 ml @ 75 mls/hr [id number] IV 09/30/20 03:30 10/30/20 03:29 10/02/20 07:11 Famotidine (Pepcid I.v.) 20 mg DAILY IVP 09/30/20 10:00 10/30/20 09:59 10/02/20 09:52 Hydrocortisone (Solu-CORTEF) 100 mg EVERY 8 HOURS IV 09/30/20 14:00 12/29/20 13:59 10/02/20 13:13 Levetiracetam 100 ml @ 400 mls/hr Q12HR IVPB 10/02/20 09:00 12/31/20 08:59 10/02/20 09:52 Lorazepam (Ativan 2mg/ml 1ml) 1 mg Q4H PRN IV For Seizures 10/01/20 16:00 10/08/20 15:59 10/02/20 10:00 Norepinephrine Bitartrate 8 mg/ Dextrose 250 ml @ 0 mls/hr Q24H IV 09/30/20 02:30 10/03/20 02:29 10/02/20 13:14 Piperacillin Sod/ Tazobactam Sod 3.375 gm/Sodium Chloride 110 ml @ 27.5 mls/hr Q12HR IVPB 09/30/20 09:00 10/07/20 08:59 10/02/20 09:51 Sodium Citrate (Bicitra) 30 ml EVERY 6 HOURS NG 10/01/20 12:00 10/31/20 11:59 10/02/20 13:13 Vancomycin HCl ([facility] pharmacy to dose) 1 ea DAILY PRN MISC Per rx protocol 09/30/20 10:00 10/30/20 09:59 Allergies: Coded Allergies: No Known Allergies (Unverified , 09/13/20) ROS Limited/Unobtainable: Yes Subjective 75 YO M with recent diagnosis of thalassemia admitted with altered mental status. S/P cardiopulmonary arrest 09/29/20. Intubated and sedated. ICU. Cover for Int Med-Dr Hutton Objective Last Vital Signs Date Time Temp Pulse Resp B/P (MAP) Pulse Ox O2 Delivery O2 Flow Rate FiO2 10/02/20 16:00 67 10/02/20 15:00 20 111/67 (82) 100 10/02/20 13:19 40 10/02/20 13:00 97.3 10/02/20 12:00 Mechanical Ventilator 10/01/20 04:00 100.0 Laboratory Tests Test 10/01/20 18:25 10/02/20 03:45 10/02/20 09:26 Lactic Acid Level 4.10 mmol/L (0.4-2.0) H 3.60 mmol/L (0.4-2.0) H White Blood Count 14.5 K/UL (4.8-10.8) H Red Blood Count 3.13 M/UL (4.70-6.10) L Hemoglobin 9.7 G/DL (14.2-18.0) L Hematocrit 29.8 % (42.0-52.0) L Mean Corpuscular Volume 95 FL (80-99) Mean Corpuscular Hemoglobin 30.8 PG (27.0-31.0) Mean Corpuscular Hemoglobin Concent 32.4 G/DL (32.0-36.0) Red Cell Distribution Width 17.6 % (11.6-14.8) H Platelet Count 59 K/UL (150-450) L Mean Platelet Volume 12.9 FL (6.5-10.1) H Neutrophils (%) (Auto) % (45.0-75.0) Lymphocytes (%) (Auto) % (20.0-45.0) Monocytes (%) (Auto) % (1.0-10.0) Eosinophils (%) (Auto) % (0.0-3.0) Basophils (%) (Auto) % (0.0-2.0) Differential Total Cells Counted 100 Neutrophils % (Manual) 85 % (45-75) H Lymphocytes % (Manual) 4 % (20-45) L Monocytes % (Manual) 5 % (1-10) Eosinophils % (Manual) 0 % (0-3) Basophils % (Manual) 0 % (0-2) Band Neutrophils 6 % (0-8) Platelet Estimate Decreased L Platelet Morphology Giant Platelets Occasional Polychromasia 1+ Hypochromasia 1+ Anisocytosis 1+ Miki Cells Occasional Sodium Level 137 MMOL/L (136-145) Potassium Level 4.8 MMOL/L (3.5-5.1) Chloride Level 106 MMOL/L (98-107) Carbon Dioxide Level 16 MMOL/L (21-32) L Anion Gap 15 mmol/L (5-15) Blood Urea Nitrogen 53 mg/dL (7-18) H Creatinine 7.0 MG/DL (0.55-1.30) H Estimat Glomerular Filtration Rate 9.3 mL/min (>60) Glucose Level 209 MG/DL (74-106) H Hemoglobin A1c 5.4 % (4.3-6.0) Uric Acid 9.4 MG/DL (2.6-7.2) H Calcium Level 8.8 MG/DL (8.5-10.1) Phosphorus Level 4.6 MG/DL (2.5-4.9) Magnesium Level 2.4 MG/DL (1.8-2.4) Iron Level 40 ug/dL (50-175) L Total Iron Binding Capacity 42 ug/dL (250-450) L Percent Iron Saturation 95 % (15-50) H Unsaturated Iron Binding 2 ug/dL (112-346) L Total Bilirubin 0.8 MG/DL (0.2-1.0) Gamma Glutamyl Transpeptidase 127 U/L (5-85) H Aspartate Amino Transf (AST/SGOT) 31 U/L (15-37) Alanine Aminotransferase (ALT/SGPT) 27 U/L (12-78) Alkaline Phosphatase 75 U/L (46-116) Troponin I 0.159 ng/mL (0.000-0.056) C-Reactive Protein, Quantitative 4.2 mg/dL (0.00-0.90) H Pro-B-Type Natriuretic Peptide 8946 pg/mL (0-125) H Total Protein 5.1 G/DL (6.4-8.2) L Albumin 1.6 G/DL (3.4-5.0) L Globulin 3.5 g/dL Albumin/Globulin Ratio 0.5 (1.0-2.7) L Triglycerides Level 46 MG/DL (30-150) Cholesterol Level < 50 MG/DL (< 200) LDL Cholesterol 7 mg/dL (<100) HDL Cholesterol 22 MG/DL (40-60) L Cholesterol/HDL Ratio 2.3 (3.3-4.4) L Lipase 44 U/L (73-393) L Vitamin B12 Level > 2000 PG/ML (193-986) H Folate 17.7 NG/ML (8.6-58.9) Thyroid Stimulating Hormone (TSH) 2.100 uiU/mL (0.358-3.740) Arterial Blood pH 7.408 (7.350-7.450) Arterial Blood Partial Pressure CO2 25.5 mmHg (35.0-45.0) L Arterial Blood Partial Pressure O2 149.0 mmHg (75.0-100.0) H Arterial Blood HCO3 15.7 mmol/L (22.0-26.0) *L Arterial Blood Oxygen Saturation 98.2 % (95-100) Arterial Blood Base Excess -7.7 (-2-2) L Onesimo Test Positive Microbiology Date/Time Source Procedure Growth Status 10/01/20 08:15 Sputum Gram Stain - Final Resulted 10/01/20 08:15 Sputum Culture - Preliminary Gram Negative Bacillus 1 Resulted 09/30/20 14:30 Indwelling Cath Urine Culture - Preliminary NO GROWTH AFTER 24 HOURS Resulted 09/30/20 11:00 Nasopharynx Coronavirus COVID-19 PCR ([facility]) - Final Complete 09/30/20 02:33 Rectum - Final NO CARBAPENEM-RESISTANT ENTEROBACTERI... Complete 09/30/20 02:33 Rectum VRE Culture - Final NO VANCOMYCIN RESISTANT ENTEROCOCCUS ... Complete 09/30/20 02:33 Nasal Nares MRSA Culture - Final NO METHICILLIN RESISTANT STAPH AUREUS... Complete 09/29/20 22:35 Blood Blood Culture - Preliminary Staphylococcus Sp Coag Neg Resulted 09/29/20 22:20 Blood Blood Culture - Preliminary Resulted Intake and Output 10/01/20 10/02/20 19:00 07:00 Intake Total 1330.0 ml 1844.955 ml Output Total 25 ml 15 ml Balance 1305.0 ml 1829.955 ml Free Water 100 ml IV Total 1110.0 ml 1324.955 ml Tube Feeding 120 ml 240 ml Other 100 ml 180 ml Output Urine Total 25 ml 15 ml # Bowel Movements 2 Objective Physical Exam General Appearance: lethargic Lines, tubes and drains: central line - R IJ HEENT: normocephalic, atraumatic, other - Pupils are 2 mm and sluggish reaction to light. Neck: non-tender Respiratory/Chest: lungs clear Cardiovascular/Chest: normal rate Abdomen: no mass, hypoactive bowel sounds Extremities: non-pitting Neurologic: unresponsiveness Assessment/Plan Assessment/Plan Assessment/Plan Status: unchanged Assessment/Plan: 75 y/o Male admitted to the Hospital with; # AMS # Acute encephalopathy # Acute hypoxemic respiratory failure # Respiratory acidosis. ABG monitoring. Intubation in the ER Pulmonary/ICU wtih Dr. Benavidez Renal consultation with Dr. Estrada. Add CT head wo contrast to rule out bleed vs other completing today. On route. EEG ordered today as no prior order found. Concern for anoxic brain injury. Seizure disorder # Pneumonia vs other ID consultation with Dr. Ricketts Zosyjennifer and Vancomycin Follow up lactate and wbc, cultures Covid Ag is NEGATIVE, PCR sent and pending. PUI status # Thalassemia Recent BM biopsy which was negative per family report. [place] MR number is [id number] ( MR not linked with [facility] database ) Supportive care Consider Hematology follow up as needed Continue maged per neurology=Dr Carranza # FTT - anorexia and weight loss Supportive care RD consult in the next 2 days for nutrition DNR DVT ppx GI ppx R IJ Semaj Rodas MD Oct 02, 2020 17:01
[2020-10-02] MEDS: Dyna-Hex 2% Top Sol 2oz TOPIC SCH (20:46)
[2020-10-03] VITALS (61 sets, daily range): BP systolic 84–157; BP diastolic 55–98
--- NOTE | 2020-10-03 04:37 | Diagnostic Imaging Report ---
EXAM: XR Abdomen, 1 View CLINICAL HISTORY: ABD DIST TECHNIQUE: Frontal supine view of the abdomen/pelvis. COMPARISON: 09/30/2020. IMPRESSION: Paucity of bowel gas. No abnormally dilated loops of bowel. Esophagogastric tube tip terminates within the gastric body.
[2020-10-03 05:51] LABS: HEMATOCRIT 28.8 % (42.0-52.0); HEMOGLOBIN 9.3 G/DL (14.2-18.0); MEAN CORPUSCULAR VOLUME 95 FL (80-99); PLATELET COUNT 48 K/UL (150-450); RED BLOOD COUNT 3.02 M/UL (4.70-6.10); RED CELL DISTRIBUTION WIDTH 17.5 % (11.6-14.8); WHITE BLOOD COUNT 15.1 K/UL (4.8-10.8)
[2020-10-03] MEDS: Sodium Citrate 30ml NG SCH ×4 (06:30→17:44)
[2020-10-03] MEDS: Hydrocortisone 100mg Inj IV SCH ×3 (06:30→21:16)
[2020-10-03 06:52] LABS: ALBUMIN 2.3 G/DL (3.4-5.0); ALBUMIN/GLOBULIN RATIO 0.7 (1.0-2.7); BILIRUBIN,TOTAL 0.7 MG/DL (0.2-1.0); CALCIUM 8.8 MG/DL (8.5-10.1); CREATININE 7.1 MG/DL (0.55-1.30); PHOSPHORUS 4.2 MG/DL (2.5-4.9); POTASSIUM 3.7 MMOL/L (3.5-5.1)
[2020-10-03] MEDS: levETIRAcetam 500mg/NS100ml 100 ML IVPB SCH ×2 (08:13→20:39)
[2020-10-03] MEDS: Allopurinol 100mg Tab NG SCH (08:13)
[2020-10-03] MEDS: Piperacillin/Tazobactam 3.375 GM in NS 110 ML IVPB SCH ×2 (09:14→20:39)
--- NOTE | 2020-10-03 11:15 | NUR ---
NURSE NOTES: Dr. Whitehead updated on the patient urine output remaining low to 0 mls, the urine is noted to be straw pinkish color. will review chart and place orders accordingly
--- NOTE | 2020-10-03 11:21 | Surgery Progress Note ---
Surgery Progress Note Subjective Additional Comments no acute events Objective Last 24 Hour Vital Signs Date Time Temp Pulse Resp B/P (MAP) Pulse Ox O2 Delivery O2 Flow Rate FiO2 10/03/20 10:00 74 19 113/72 (86) 100 10/03/20 09:30 73 17 119/81 (94) 100 10/03/20 09:00 73 17 126/74 (91) 100 10/03/20 08:30 54 17 109/73 (85) 100 10/03/20 08:00 40 10/03/20 08:00 96.4 58 17 104/71 (82) 100 10/03/20 07:30 68 16 107/71 (83) 100 10/03/20 07:15 69 18 100 10/03/20 07:00 69 17 119/87 (98) 100 10/03/20 06:45 68 18 121/88 (99) 100 10/03/20 06:30 77 22 10/03/20 06:30 68 21 136/82 (100) 100 10/03/20 06:30 68 21 136/82 (100) 100 10/03/20 06:15 69 20 128/92 (104) 100 10/03/20 06:00 56 17 112/84 (93) 100 10/03/20 05:45 57 17 113/84 (94) 100 10/03/20 05:30 60 17 111/77 (88) 100 10/03/20 05:15 58 17 110/78 (89) 100 10/03/20 05:00 57 17 105/79 (88) 100 10/03/20 04:45 58 17 108/74 (85) 100 10/03/20 04:30 61 17 108/74 (85) 100 10/03/20 04:15 62 16 107/77 (87) 100 10/03/20 04:00 Mechanical Ventilator 10/03/20 04:00 66 10/03/20 04:00 63 18 110/79 (89) 100 10/03/20 03:45 70 17 117/81 (93) 100 10/03/20 03:30 70 18 121/84 (96) 100 10/03/20 03:30 70 18 121/84 (96) 100 10/03/20 03:27 74 17 40 10/03/20 03:15 75 18 124/83 (97) 100 10/03/20 03:00 76 23 118/83 (95) 100 10/03/20 02:45 74 28 119/85 (96) 100 10/03/20 02:30 70 24 141/98 (112) 100 10/03/20 02:15 61 17 105/70 (82) 100 10/03/20 02:00 60 18 103/68 (80) 100 10/03/20 01:45 66 17 103/71 (82) 100 10/03/20 01:30 73 17 105/77 (86) 100 10/03/20 01:15 78 22 114/80 (91) 100 10/03/20 01:15 78 22 114/80 (91) 100 10/03/20 01:00 79 22 118/76 (90) 100 10/03/20 00:45 87 19 157/90 (112) 100 10/03/20 00:30 83 26 137/93 (108) 100 10/03/20 00:15 85 23 130/82 (98) 100 10/03/20 00:02 40 10/03/20 00:01 Mechanical Ventilator 10/03/20 00:00 61 10/03/20 00:00 86 19 100 10/03/20 00:00 86 19 140/91 (107) 100 10/02/20 23:45 80 19 122/77 (92) 100 10/02/20 23:30 86 20 120/78 (92) 100 10/02/20 23:21 84 21 40 10/02/20 23:15 82 18 141/87 (105) 100 10/02/20 23:00 83 20 116/81 (93) 100 10/02/20 22:45 75 18 121/85 (97) 98 10/02/20 22:30 76 19 116/81 (93) 99 10/02/20 22:15 76 19 137/98 (111) 99 10/02/20 22:00 74 19 127/88 (101) 99 10/02/20 21:45 76 20 126/34 (64) 100 10/02/20 21:30 58 19 115/76 (89) 100 10/02/20 21:15 59 20 104/80 (88) 100 10/02/20 21:15 59 20 104/80 (88) 100 10/02/20 21:00 59 19 106/76 (86) 100 10/02/20 20:45 63 19 95/66 (76) 100 10/02/20 20:30 64 20 76/54 (61) 100 10/02/20 20:15 71 21 74/50 (58) 100 10/02/20 20:00 40 10/02/20 20:00 98.9 74 19 85/62 (70) 100 10/02/20 20:00 71 10/02/20 20:00 Mechanical Ventilator 10/02/20 19:45 75 21 85/56 (66) 100 10/02/20 19:35 73 17 40 10/02/20 19:30 74 17 100 10/02/20 19:30 74 17 89/62 (71) 100 10/02/20 19:15 72 17 88/60 (69) 100 10/02/20 19:00 74 20 80/58 (65) 100 10/02/20 18:45 75 19 87/63 (71) 100 10/02/20 18:30 74 20 91/63 (72) 100 10/02/20 18:15 77 18 94/65 (75) 100 10/02/20 18:00 77 21 88/70 (76) 100 10/02/20 17:57 72 19 40 10/02/20 17:45 77 18 149/109 (122) 10/02/20 17:32 79 17 112/72 (85) 99 10/02/20 17:30 78 21 100 10/02/20 17:15 67 20 100 10/02/20 17:00 67 20 107/66 (80) 100 10/02/20 16:45 69 21 108/67 (81) 100 10/02/20 16:30 68 20 101/64 (76) 100 10/02/20 16:15 97.2 74 22 98/68 (78) 100 10/02/20 16:00 Mechanical Ventilator 10/02/20 16:00 40 10/02/20 16:00 72 19 96/62 (73) 100 10/02/20 16:00 67 10/02/20 15:45 77 22 98/60 (73) 100 10/02/20 15:30 82 22 99/65 (76) 100 10/02/20 15:15 83 19 112/65 (81) 100 10/02/20 15:13 78 18 40 10/02/20 15:00 83 20 111/67 (82) 100 10/02/20 14:45 86 24 116/64 (81) 100 10/02/20 14:35 40 10/02/20 14:30 86 20 117/73 (88) 100 10/02/20 14:15 85 25 123/70 (87) 100 10/02/20 14:08 87 23 128/76 (93) 100 10/02/20 14:00 84 22 123/70 (87) 100 10/02/20 14:00 85 23 125/77 (93) 100 10/02/20 13:45 85 25 140/83 (102) 100 10/02/20 13:30 74 24 93/31 (51) 100 10/02/20 13:19 84 23 40 10/02/20 13:15 72 23 103/70 (81) 100 10/02/20 13:14 94/63 10/02/20 13:00 74 24 94/63 (73) 100 10/02/20 13:00 97.3 84 24 125/77 (93) 100 10/02/20 12:45 74 24 96/63 (74) 100 10/02/20 12:30 75 25 89/57 (68) 100 10/02/20 12:15 97.5 79 25 92/56 (68) 100 10/02/20 12:00 84 18 125/71 (89) 100 10/02/20 12:00 85 10/02/20 12:00 40 10/02/20 12:00 85 20 116/69 (85) 100 10/02/20 12:00 Mechanical Ventilator 10/02/20 11:45 84 21 127/81 (96) 100 10/02/20 11:30 80 24 110/71 (84) 100 I&O Intake and Output 10/02/20 10/03/20 19:00 07:00 Intake Total 1483.4375 ml 588.50 ml Output Total 70 ml 280 ml Balance 1413.4375 ml 308.50 ml IV Total 1243.4375 ml 348.50 ml Tube Feeding 240 ml 240 ml Output Urine Total 70 ml 280 ml Dressing: saturated Cardiovascular: RSR Respiratory: decreased breath sounds Abdomen: soft, non-tender, present bowel sounds, non-distended Extremities: no tenderness, no cyanosis Laboratory Tests Test 10/02/20 19:45 10/03/20 03:43 10/03/20 08:32 Vancomycin Level Trough 22.0 ug/mL (5.0-12.0) H White Blood Count 15.1 K/UL (4.8-10.8) H Red Blood Count 3.02 M/UL (4.70-6.10) L Hemoglobin 9.3 G/DL (14.2-18.0) L Hematocrit 28.8 % (42.0-52.0) L Mean Corpuscular Volume 95 FL (80-99) Mean Corpuscular Hemoglobin 30.9 PG (27.0-31.0) Mean Corpuscular Hemoglobin Concent 32.4 G/DL (32.0-36.0) Red Cell Distribution Width 17.5 % (11.6-14.8) H Platelet Count 48 K/UL (150-450) L Mean Platelet Volume 9.5 FL (6.5-10.1) Neutrophils (%) (Auto) % (45.0-75.0) Lymphocytes (%) (Auto) % (20.0-45.0) Monocytes (%) (Auto) % (1.0-10.0) Eosinophils (%) (Auto) % (0.0-3.0) Basophils (%) (Auto) % (0.0-2.0) Differential Total Cells Counted 100 Neutrophils % (Manual) 82 % (45-75) H Lymphocytes % (Manual) 5 % (20-45) L Monocytes % (Manual) 8 % (1-10) Eosinophils % (Manual) 0 % (0-3) Basophils % (Manual) 0 % (0-2) Band Neutrophils 5 % (0-8) Platelet Estimate Decreased L Platelet Morphology Normal Hypochromasia 1+ Anisocytosis 1+ Target Cells Occasional Schistocytes Rare Sodium Level 139 MMOL/L (136-145) Potassium Level 3.7 MMOL/L (3.5-5.1) Chloride Level 107 MMOL/L (98-107) Carbon Dioxide Level 18 MMOL/L (21-32) L Anion Gap 14 mmol/L (5-15) Blood Urea Nitrogen 58 mg/dL (7-18) H Creatinine 7.1 MG/DL (0.55-1.30) H Estimat Glomerular Filtration Rate 9.1 mL/min (>60) Glucose Level 172 MG/DL (74-106) H Uric Acid 8.8 MG/DL (2.6-7.2) H Calcium Level 8.8 MG/DL (8.5-10.1) Phosphorus Level 4.2 MG/DL (2.5-4.9) Magnesium Level 2.2 MG/DL (1.8-2.4) Total Bilirubin 0.7 MG/DL (0.2-1.0) Aspartate Amino Transf (AST/SGOT) 35 U/L (15-37) Alanine Aminotransferase (ALT/SGPT) 29 U/L (12-78) Alkaline Phosphatase 81 U/L (46-116) C-Reactive Protein, Quantitative 2.6 mg/dL (0.00-0.90) H Pro-B-Type Natriuretic Peptide 5594 pg/mL (0-125) H Total Protein 5.5 G/DL (6.4-8.2) L Albumin 2.3 G/DL (3.4-5.0) L Globulin 3.2 g/dL Albumin/Globulin Ratio 0.7 (1.0-2.7) L Random Vancomycin Level 21.7 ug/mL Arterial Blood pH 7.403 (7.350-7.450) Arterial Blood Partial Pressure CO2 28.9 mmHg (35.0-45.0) L Arterial Blood Partial Pressure O2 146.3 mmHg (75.0-100.0) H Arterial Blood HCO3 17.6 mmol/L (22.0-26.0) *L Arterial Blood Oxygen Saturation 98.2 % (95-100) Arterial Blood Base Excess -6.2 (-2-2) L Onesimo Test Positive Plan Problems: (1) Cardiopulmonary arrest (2) Septic shock Assessment & Plan: 75 male leukocytosis lactic acidosis septic shock intubated intensive care unit. Unable to give abdominal exam, exam otherwise benign abdominal unlikely etiology imaging reviewed labs reviewed. Continue ventilator support respiratory in nature seemingly. NG tube IV fluids IV antibiotics will follow with recommendations thank you letter participation's care DAILY ESTIMATED NEEDS: Needs based on Critical care 74.2kg 22-28 kcals/kg 0411-2285 total kcals 1.2-2 g protein/kg 89-148 g total protein 25-30 mL/kg 6792-8009 total fluid mLs NUTRITION DIAGNOSIS: Swallowing difficulty r/t respiratory arrest as evidenced by pt intubated, on pressor support, ICU status. ENTERAL NUTRITION RECOMMENDATIONS: As able NEPRO @40ml/hr x24 hrs to provide 960ml, 1728 kcal, 78g pro, 698ml free H2O -When stable for feeds rec renal formula at this time d/t increasing K and phos. -obtain GI access, initiate Nepro @20ml/hr for 6 hrs, advance as tolerated 10ml/hr 2q4-6 hrs to goal -When tolerating TF at goal, add prosource 1 pack BID to better meet est pro needs. -Flush per HOB over 30 degrees. ----> If hemodynamically unstable, rec trophic feeds of Nepro @10ml/hr to maintain gut integrity. ADDITIONAL RECOMMENDATIONS: 1) F/up w/ H&P 2) Maintain D5 IV hydration while NPO 3) Maintain calibrated bed scale wts 4) Non oral feeds when stable (3) Lactic acidosis (4) Failure to thrive (5) Pancytopenia (6) Respiratory failure (7) Hypoxia (8) Pneumonia (9) Respiratory arrest (10) Hypernatremia (11) Renal failure Oni Walker Oct 03, 2020 11:21
--- NOTE | 2020-10-03 12:06 | Nephrology Progress Note ---
Assessment/Plan Problem List: (1) COURTNEY (acute kidney injury) (2) Cardiopulmonary arrest (3) Respiratory failure (4) Septic shock Assessment Acute renal failure Septic shock Acute respiratory failure CODE STATUS now DNR Plan October 03: Continues to be on 6 mics of Levophed. Urine output 350 cc past 24 hours. No urine output since this morning. Labs reviewed. Discussed with KIRBY Diallo. Albumin bolus given. Zaroxolyn 1 dose ordered. Serum creatinine appears to be leveling off. Continue to monitor renal parameters. Patient DNR. October 02: Remains on low-dose pressors today almost anuric. Discussed with KIRBY Shook. Labs reviewed. Medication list reviewed. Trial of albumin and Lasix. Continue to monitor renal parameters. Patient DNR. FiO2 40% October 01: Patient clinically more stable. Discussed with KIRBY Tarango. Patient off pressors. ABG improved. Serum creatinine worse. Will start the patient on Bicitra and allopurinol through NG tube. Continue to monitor renal parameters. Per orders. Patient currently DNR. Previously: Pulmonary support Pressors Antibiotics Hydrocortisone Per orders Subjective ROS Limited/Unobtainable: Yes Objective Objective Last 24 Hour Vital Signs Date Time Temp Pulse Resp B/P (MAP) Pulse Ox O2 Delivery O2 Flow Rate FiO2 10/03/20 10:00 74 19 113/72 (86) 100 10/03/20 09:30 73 17 119/81 (94) 100 10/03/20 09:00 73 17 126/74 (91) 100 10/03/20 08:30 54 17 109/73 (85) 100 10/03/20 08:00 Mechanical Ventilator 10/03/20 08:00 40 10/03/20 08:00 96.4 58 17 104/71 (82) 100 10/03/20 07:30 68 16 107/71 (83) 100 10/03/20 07:15 69 18 100 10/03/20 07:00 69 17 119/87 (98) 100 10/03/20 06:45 68 18 121/88 (99) 100 10/03/20 06:30 77 22 10/03/20 06:30 68 21 136/82 (100) 100 10/03/20 06:30 68 21 136/82 (100) 100 10/03/20 06:15 69 20 128/92 (104) 100 10/03/20 06:00 56 17 112/84 (93) 100 10/03/20 05:45 57 17 113/84 (94) 100 10/03/20 05:30 60 17 111/77 (88) 100 10/03/20 05:15 58 17 110/78 (89) 100 10/03/20 05:00 57 17 105/79 (88) 100 10/03/20 04:45 58 17 108/74 (85) 100 10/03/20 04:30 61 17 108/74 (85) 100 10/03/20 04:15 62 16 107/77 (87) 100 10/03/20 04:00 Mechanical Ventilator 10/03/20 04:00 66 10/03/20 04:00 63 18 110/79 (89) 100 10/03/20 03:45 70 17 117/81 (93) 100 10/03/20 03:30 70 18 121/84 (96) 100 10/03/20 03:30 70 18 121/84 (96) 100 10/03/20 03:27 74 17 40 10/03/20 03:15 75 18 124/83 (97) 100 10/03/20 03:00 76 23 118/83 (95) 100 10/03/20 02:45 74 28 119/85 (96) 100 10/03/20 02:30 70 24 141/98 (112) 100 10/03/20 02:15 61 17 105/70 (82) 100 10/03/20 02:00 60 18 103/68 (80) 100 10/03/20 01:45 66 17 103/71 (82) 100 10/03/20 01:30 73 17 105/77 (86) 100 10/03/20 01:15 78 22 114/80 (91) 100 10/03/20 01:15 78 22 114/80 (91) 100 10/03/20 01:00 79 22 118/76 (90) 100 10/03/20 00:45 87 19 157/90 (112) 100 10/03/20 00:30 83 26 137/93 (108) 100 10/03/20 00:15 85 23 130/82 (98) 100 10/03/20 00:02 40 10/03/20 00:01 Mechanical Ventilator 10/03/20 00:00 61 10/03/20 00:00 86 19 100 10/03/20 00:00 86 19 140/91 (107) 100 10/02/20 23:45 80 19 122/77 (92) 100 10/02/20 23:30 86 20 120/78 (92) 100 10/02/20 23:21 84 21 40 10/02/20 23:15 82 18 141/87 (105) 100 10/02/20 23:00 83 20 116/81 (93) 100 10/02/20 22:45 75 18 121/85 (97) 98 10/02/20 22:30 76 19 116/81 (93) 99 10/02/20 22:15 76 19 137/98 (111) 99 10/02/20 22:00 74 19 127/88 (101) 99 10/02/20 21:45 76 20 126/34 (64) 100 10/02/20 21:30 58 19 115/76 (89) 100 10/02/20 21:15 59 20 104/80 (88) 100 10/02/20 21:15 59 20 104/80 (88) 100 10/02/20 21:00 59 19 106/76 (86) 100 10/02/20 20:45 63 19 95/66 (76) 100 10/02/20 20:30 64 20 76/54 (61) 100 10/02/20 20:15 71 21 74/50 (58) 100 10/02/20 20:00 40 10/02/20 20:00 98.9 74 19 85/62 (70) 100 10/02/20 20:00 71 10/02/20 20:00 Mechanical Ventilator 10/02/20 19:45 75 21 85/56 (66) 100 10/02/20 19:35 73 17 40 10/02/20 19:30 74 17 100 10/02/20 19:30 74 17 89/62 (71) 100 10/02/20 19:15 72 17 88/60 (69) 100 10/02/20 19:00 74 20 80/58 (65) 100 10/02/20 18:45 75 19 87/63 (71) 100 10/02/20 18:30 74 20 91/63 (72) 100 10/02/20 18:15 77 18 94/65 (75) 100 10/02/20 18:00 77 21 88/70 (76) 100 10/02/20 17:57 72 19 40 10/02/20 17:45 77 18 149/109 (122) 10/02/20 17:32 79 17 112/72 (85) 99 10/02/20 17:30 78 21 100 10/02/20 17:15 67 20 100 10/02/20 17:00 67 20 107/66 (80) 100 10/02/20 16:45 69 21 108/67 (81) 100 10/02/20 16:30 68 20 101/64 (76) 100 10/02/20 16:15 97.2 74 22 98/68 (78) 100 10/02/20 16:00 Mechanical Ventilator 10/02/20 16:00 40 10/02/20 16:00 72 19 96/62 (73) 100 10/02/20 16:00 67 10/02/20 15:45 77 22 98/60 (73) 100 10/02/20 15:30 82 22 99/65 (76) 100 10/02/20 15:15 83 19 112/65 (81) 100 10/02/20 15:13 78 18 40 10/02/20 15:00 83 20 111/67 (82) 100 10/02/20 14:45 86 24 116/64 (81) 100 10/02/20 14:35 40 10/02/20 14:30 86 20 117/73 (88) 100 10/02/20 14:15 85 25 123/70 (87) 100 10/02/20 14:08 87 23 128/76 (93) 100 10/02/20 14:00 84 22 123/70 (87) 100 10/02/20 14:00 85 23 125/77 (93) 100 10/02/20 13:45 85 25 140/83 (102) 100 10/02/20 13:30 74 24 93/31 (51) 100 10/02/20 13:19 84 23 40 10/02/20 13:15 72 23 103/70 (81) 100 10/02/20 13:14 94/63 10/02/20 13:00 74 24 94/63 (73) 100 10/02/20 13:00 97.3 84 24 125/77 (93) 100 10/02/20 12:45 74 24 96/63 (74) 100 10/02/20 12:30 75 25 89/57 (68) 100 10/02/20 12:15 97.5 79 25 92/56 (68) 100 Intake and Output 10/02/20 10/03/20 19:00 07:00 Intake Total 1483.4375 ml 588.50 ml Output Total 70 ml 280 ml Balance 1413.4375 ml 308.50 ml IV Total 1243.4375 ml 348.50 ml Tube Feeding 240 ml 240 ml Output Urine Total 70 ml 280 ml Laboratory Tests 10/02/20 19:45: Vancomycin Level Trough 22.0H 10/03/20 03:43: White Blood Count 15.1H, Red Blood Count 3.02L, Hemoglobin 9.3L, Hematocrit 28.8L, Mean Corpuscular Volume 95, Mean Corpuscular Hemoglobin 30.9, Mean Corpuscular Hemoglobin Concent 32.4, Red Cell Distribution Width 17.5H, Platelet Count 48L, Mean Platelet Volume 9.5, Neutrophils (%) (Auto) , Lymphocytes (%) (Auto) , Monocytes (%) (Auto) , Eosinophils (%) (Auto) , Basophils (%) (Auto) , Differential Total Cells Counted 100, Neutrophils % (Manual) 82H, Lymphocytes % (Manual) 5L, Monocytes % (Manual) 8, Eosinophils % (Manual) 0, Basophils % (Manual) 0, Band Neutrophils 5, Platelet Estimate DecreasedL, Platelet Morphology Normal, Hypochromasia 1+, Anisocytosis 1+, Target Cells Occasional, Schistocytes Rare, Sodium Level 139, Potassium Level 3.7, Chloride Level 107, Carbon Dioxide Level 18L, Anion Gap 14, Blood Urea Nitrogen 58H, Creatinine 7.1H , Estimat Glomerular Filtration Rate 9.1, Glucose Level 172H, Uric Acid 8.8H, Calcium Level 8.8, Phosphorus Level 4.2, Magnesium Level 2.2, Total Bilirubin 0.7, Aspartate Amino Transf (AST/SGOT) 35, Alanine Aminotransferase (ALT/SGPT) 29, Alkaline Phosphatase 81, C-Reactive Protein, Quantitative 2.6H, Pro-B-Type Natriuretic Peptide 5594H, Total Protein 5.5L, Albumin 2.3L, Globulin 3.2, Albumin/Globulin Ratio 0.7L, Random Vancomycin Level 21.7 10/03/20 08:32: Arterial Blood pH 7.403, Arterial Blood Partial Pressure CO2 28.9L, Arterial Blood Partial Pressure O2 146.3H, Arterial Blood HCO3 17.6*L, Arterial Blood Oxygen Saturation 98.2, Arterial Blood Base Excess -6.2L, Onesimo Test Positive Height (Feet): 6 Height (Inches): 8.00 Weight (Pounds): 165 General Appearance: no apparent distress EENT: other - Intubated on ventilator Cardiovascular: tachycardia Respiratory/Chest: decreased breath sounds Abdomen: distended Angel Whitehead MD Oct 03, 2020 12:06
--- NOTE | 2020-10-03 12:45 | NUR ---
NURSE NOTES: Dr. diaz updated on the patient condition with no order given at this time.
[2020-10-03] MEDS: D5 1/2NS 1,000 ML IV SCH (12:54)
--- NOTE | 2020-10-03 12:58 | Pulmonology Progress Note ---
Subjective ROS Limited/Unobtainable: Yes Interval Events: No change; remains intubated Constitutional: Reports: no symptoms HEENT: Repors: no symptoms Respiratory: Reports: no symptoms Cardiovascular: Reports: no symptoms Gastrointestinal/Abdominal: Reports: no symptoms Genitourinary: Reports: no symptoms Allergies: Coded Allergies: No Known Allergies (Unverified , 09/13/20) Objective Last 24 Hour Vital Signs Date Time Temp Pulse Resp B/P (MAP) Pulse Ox O2 Delivery O2 Flow Rate FiO2 10/03/20 10:00 74 19 113/72 (86) 100 10/03/20 09:30 73 17 119/81 (94) 100 10/03/20 09:00 73 17 126/74 (91) 100 10/03/20 08:30 54 17 109/73 (85) 100 10/03/20 08:00 Mechanical Ventilator 10/03/20 08:00 40 10/03/20 08:00 96.4 58 17 104/71 (82) 100 10/03/20 07:30 68 16 107/71 (83) 100 10/03/20 07:24 55 16 40 10/03/20 07:15 69 18 100 10/03/20 07:00 69 17 119/87 (98) 100 10/03/20 06:45 68 18 121/88 (99) 100 10/03/20 06:30 77 22 10/03/20 06:30 68 21 136/82 (100) 100 10/03/20 06:30 68 21 136/82 (100) 100 10/03/20 06:15 69 20 128/92 (104) 100 10/03/20 06:00 56 17 112/84 (93) 100 10/03/20 05:45 57 17 113/84 (94) 100 10/03/20 05:30 60 17 111/77 (88) 100 10/03/20 05:15 58 17 110/78 (89) 100 10/03/20 05:00 57 17 105/79 (88) 100 10/03/20 04:45 58 17 108/74 (85) 100 10/03/20 04:30 61 17 108/74 (85) 100 10/03/20 04:15 62 16 107/77 (87) 100 10/03/20 04:00 Mechanical Ventilator 10/03/20 04:00 66 10/03/20 04:00 63 18 110/79 (89) 100 10/03/20 03:45 70 17 117/81 (93) 100 10/03/20 03:30 70 18 121/84 (96) 100 10/03/20 03:30 70 18 121/84 (96) 100 10/03/20 03:27 74 17 40 10/03/20 03:15 75 18 124/83 (97) 100 10/03/20 03:00 76 23 118/83 (95) 100 10/03/20 02:45 74 28 119/85 (96) 100 10/03/20 02:30 70 24 141/98 (112) 100 10/03/20 02:15 61 17 105/70 (82) 100 10/03/20 02:00 60 18 103/68 (80) 100 10/03/20 01:45 66 17 103/71 (82) 100 10/03/20 01:30 73 17 105/77 (86) 100 10/03/20 01:15 78 22 114/80 (91) 100 10/03/20 01:15 78 22 114/80 (91) 100 10/03/20 01:00 79 22 118/76 (90) 100 10/03/20 00:45 87 19 157/90 (112) 100 10/03/20 00:30 83 26 137/93 (108) 100 10/03/20 00:15 85 23 130/82 (98) 100 10/03/20 00:02 40 10/03/20 00:01 Mechanical Ventilator 10/03/20 00:00 61 10/03/20 00:00 86 19 100 10/03/20 00:00 86 19 140/91 (107) 100 10/02/20 23:45 80 19 122/77 (92) 100 10/02/20 23:30 86 20 120/78 (92) 100 10/02/20 23:21 84 21 40 10/02/20 23:15 82 18 141/87 (105) 100 10/02/20 23:00 83 20 116/81 (93) 100 10/02/20 22:45 75 18 121/85 (97) 98 10/02/20 22:30 76 19 116/81 (93) 99 10/02/20 22:15 76 19 137/98 (111) 99 10/02/20 22:00 74 19 127/88 (101) 99 10/02/20 21:45 76 20 126/34 (64) 100 10/02/20 21:30 58 19 115/76 (89) 100 10/02/20 21:15 59 20 104/80 (88) 100 10/02/20 21:15 59 20 104/80 (88) 100 10/02/20 21:00 59 19 106/76 (86) 100 10/02/20 20:45 63 19 95/66 (76) 100 10/02/20 20:30 64 20 76/54 (61) 100 10/02/20 20:15 71 21 74/50 (58) 100 10/02/20 20:00 40 10/02/20 20:00 98.9 74 19 85/62 (70) 100 10/02/20 20:00 71 10/02/20 20:00 Mechanical Ventilator 10/02/20 19:45 75 21 85/56 (66) 100 10/02/20 19:35 73 17 40 10/02/20 19:30 74 17 100 10/02/20 19:30 74 17 89/62 (71) 100 10/02/20 19:15 72 17 88/60 (69) 100 10/02/20 19:00 74 20 80/58 (65) 100 10/02/20 18:45 75 19 87/63 (71) 100 10/02/20 18:30 74 20 91/63 (72) 100 10/02/20 18:15 77 18 94/65 (75) 100 10/02/20 18:00 77 21 88/70 (76) 100 10/02/20 17:57 72 19 40 10/02/20 17:45 77 18 149/109 (122) 10/02/20 17:32 79 17 112/72 (85) 99 10/02/20 17:30 78 21 100 10/02/20 17:15 67 20 100 10/02/20 17:00 67 20 107/66 (80) 100 10/02/20 16:45 69 21 108/67 (81) 100 10/02/20 16:30 68 20 101/64 (76) 100 10/02/20 16:15 97.2 74 22 98/68 (78) 100 10/02/20 16:00 Mechanical Ventilator 10/02/20 16:00 40 10/02/20 16:00 72 19 96/62 (73) 100 10/02/20 16:00 67 10/02/20 15:45 77 22 98/60 (73) 100 10/02/20 15:30 82 22 99/65 (76) 100 10/02/20 15:15 83 19 112/65 (81) 100 10/02/20 15:13 78 18 40 10/02/20 15:00 83 20 111/67 (82) 100 10/02/20 14:45 86 24 116/64 (81) 100 10/02/20 14:35 40 10/02/20 14:30 86 20 117/73 (88) 100 10/02/20 14:15 85 25 123/70 (87) 100 10/02/20 14:08 87 23 128/76 (93) 100 10/02/20 14:00 84 22 123/70 (87) 100 10/02/20 14:00 85 23 125/77 (93) 100 10/02/20 13:45 85 25 140/83 (102) 100 10/02/20 13:30 74 24 93/31 (51) 100 10/02/20 13:19 84 23 40 10/02/20 13:15 72 23 103/70 (81) 100 10/02/20 13:14 94/63 10/02/20 13:00 74 24 94/63 (73) 100 10/02/20 13:00 97.3 84 24 125/77 (93) 100 Intake and Output 10/02/20 10/03/20 19:00 07:00 Intake Total 1483.4375 ml 599.75 ml Output Total 70 ml 280 ml Balance 1413.4375 ml 319.75 ml IV Total 1243.4375 ml 359.75 ml Tube Feeding 240 ml 240 ml Output Urine Total 70 ml 280 ml General Appearance: no acute distress HEENT: normocephalic Respiratory: chest wall non-tender Cardiovascular: normal peripheral pulses Abdomen: normal bowel sounds Microbiology Date/Time Source Procedure Growth Status 10/01/20 08:15 Sputum Gram Stain - Final Resulted 10/01/20 08:15 Sputum Culture - Preliminary Klebsiella Pneumoniae Staphylococcus Aureus Resulted 09/30/20 14:30 Indwelling Cath Urine Culture - Final NO GROWTH AFTER 48 HOURS Complete Laboratory Tests 10/02/20 19:45: Vancomycin Level Trough 22.0H 10/03/20 03:43: White Blood Count 15.1H, Red Blood Count 3.02L, Hemoglobin 9.3L, Hematocrit 28.8L, Mean Corpuscular Volume 95, Mean Corpuscular Hemoglobin 30.9, Mean Corpuscular Hemoglobin Concent 32.4, Red Cell Distribution Width 17.5H, Platelet Count 48L, Mean Platelet Volume 9.5, Neutrophils (%) (Auto) , Lymphocytes (%) (Auto) , Monocytes (%) (Auto) , Eosinophils (%) (Auto) , Basophils (%) (Auto) , Differential Total Cells Counted 100, Neutrophils % (Manual) 82H, Lymphocytes % (Manual) 5L, Monocytes % (Manual) 8, Eosinophils % (Manual) 0, Basophils % (Manual) 0, Band Neutrophils 5, Platelet Estimate DecreasedL, Platelet Morphology Normal, Hypochromasia 1+, Anisocytosis 1+, Target Cells Occasional, Schistocytes Rare, Sodium Level 139, Potassium Level 3.7, Chloride Level 107, Carbon Dioxide Level 18L, Anion Gap 14, Blood Urea Nitrogen 58H, Creatinine 7.1H , Estimat Glomerular Filtration Rate 9.1, Glucose Level 172H, Uric Acid 8.8H, Calcium Level 8.8, Phosphorus Level 4.2, Magnesium Level 2.2, Total Bilirubin 0.7, Aspartate Amino Transf (AST/SGOT) 35, Alanine Aminotransferase (ALT/SGPT) 2 9, Alkaline Phosphatase 81, C-Reactive Protein, Quantitative 2.6H, Pro-B-Type Natriuretic Peptide 5594H, Total Protein 5.5L, Albumin 2.3L, Globulin 3.2, Albumin/Globulin Ratio 0.7L, Random Vancomycin Level 21.7 10/03/20 08:32: Arterial Blood pH 7.403, Arterial Blood Partial Pressure CO2 28.9L, Arterial Blood Partial Pressure O2 146.3H, Arterial Blood HCO3 17.6*L, Arterial Blood Oxygen Saturation 98.2, Arterial Blood Base Excess -6.2L, Onesimo Test Positive Current Medications Medications (Trade) Dose Ordered Sig/Alfredo Route PRN Reason Start Time Stop Time Status Last Admin Dose Admin Acetaminophen (Tylenol) 650 mg EVERY 6 HOURS PRN NG Temp >100.5 09/30/20 02:30 10/30/20 02:29 Albumin Human 100 ml @ 100 mls/hr ONCE ONCE IV 10/03/20 12:15 10/03/20 13:14 10/03/20 12:54 Allopurinol (Zyloprim) 100 mg DAILY NG 10/01/20 12:00 10/31/20 11:59 10/03/20 08:13 Chlorhexidine Gluconate (Babita-Hex 2%) 1 applic DAILY@2000 TOPIC 09/30/20 20:00 12/29/20 19:59 10/02/20 20:46 Dextrose (Dextrose 50%) 25 ml Q30M PRN IV Hypoglycemia 09/30/20 02:30 12/29/20 02:29 Dextrose (Dextrose 50%) 50 ml Q30M PRN IV Hypoglycemia 09/30/20 02:30 12/29/20 02:29 Dextrose/Sodium Chloride 1,000 ml @ 75 mls/hr [id number] IV 09/30/20 03:30 10/30/20 03:29 10/03/20 12:54 Famotidine (Pepcid I.v.) 20 mg DAILY IVP 09/30/20 10:00 10/30/20 09:59 10/03/20 08:13 Hydrocortisone (Solu-CORTEF) 100 mg EVERY 8 HOURS IV 09/30/20 14:00 12/29/20 13:59 10/03/20 12:54 Levetiracetam 100 ml @ 400 mls/hr Q12HR IVPB 10/02/20 09:00 12/31/20 08:59 10/03/20 08:13 Lorazepam (Ativan 2mg/ml 1ml) 1 mg Q4H PRN IV For Seizures 10/01/20 16:00 10/08/20 15:59 10/02/20 10:00 Metolazone (Zaroxolyn) 10 mg ONCE NG 10/03/20 12:30 10/03/20 13:30 Norepinephrine Bitartrate 8 mg/ Dextrose 250 ml @ 0 mls/hr Q24H IV 10/03/20 12:45 10/06/20 12:44 Piperacillin Sod/ Tazobactam Sod 3.375 gm/Sodium Chloride 110 ml @ 27.5 mls/hr Q12HR IVPB 09/30/20 09:00 10/07/20 08:59 10/03/20 09:14 Sodium Citrate (Bicitra) 30 ml EVERY 6 HOURS NG 10/01/20 12:00 10/31/20 11:59 10/03/20 12:54 Vancomycin HCl ([facility] pharmacy to dose) 1 ea DAILY PRN MISC Per rx protocol 09/30/20 10:00 10/30/20 09:59 Assessment/Plan Assessment/Plan 1. Respiratory failure. 2. Multiple medical problems consisting of hypertension, thalassemia, chronic pancreatitis, GERD, neuropathy, and depression. 3. Shock; on pressors 4. Acute renal failure and metabolic acidosis 5. Lactic acidemia 6. AMS; CT brain negative DISCUSSION: Now DNR Currently the patient is intubated. Continue AC mode. Wean as tolerated but will not extubate till more awake and off pressors He has been started on fluids. DVT and GI prophylaxis. Broad-spectrum antibiotics. We will follow carefully. Bicarb supplementation ABG adequate The care of this patient was discussed with my supervising physician Time spent for this encounter was approximately 31 minutes Dioni Coats Oct 03, 2020 12:58
--- NOTE | 2020-10-03 13:13 | Infectious Diseases Prog Note ---
Assessment/Plan 75 yo male with PMHx of failure to thrive, HTN, thalassemia, pancytopenia, HLD, Depression who was sent to the ED from his care home for AMS. Septic Shock PNA Acute hypoxic resp failure sp VDRF -10/01 sp cx S. aureus (sensi p), K. pna (r amp; otherwise S) -09/30 COVID PCr neg -09/30 CXR: Bibasilar atelectasis versus infiltrates CXR 09/29/20 - Left basilar atelectasis. No acute process otherwise. Evidence of old granulomatous disease rapid covid ag neg S. epi bacteremia- contaminant vs real -10/03 Bcx p -09/29 BCx / sets S. epi Leukocytosis; increaed No fever -09/30 ucx neg AMS -CT head: New NG tube and mid to distal esophagus. Recommend advancement. Bibasilar atelectasis versus infiltrates Lactic acidosis Failure to thrive HTN Thalassemia Pancytopenia HLD Depression Adenomatous colonic polyps PLAN - Continue Zosyn #3 and Vancomycin #3 - f/u COVID 19 Ag screen - f/u Cultures - Monitor CBC and Temps -BCx (periheral and line) 2d echo Thank you for this consult. [facility] will continue to follow Mr. Vargas while he in hospitalized. Subjective Allergies: Coded Allergies: No Known Allergies (Unverified , 09/13/20) afebrile FIo2 40% wbc increased Objective Last 24 Hour Vital Signs Date Time Temp Pulse Resp B/P (MAP) Pulse Ox O2 Delivery O2 Flow Rate FiO2 10/03/20 10:00 74 19 113/72 (86) 100 10/03/20 09:30 73 17 119/81 (94) 100 10/03/20 09:00 73 17 126/74 (91) 100 10/03/20 08:30 54 17 109/73 (85) 100 10/03/20 08:00 Mechanical Ventilator 10/03/20 08:00 40 10/03/20 08:00 96.4 58 17 104/71 (82) 100 10/03/20 07:30 68 16 107/71 (83) 100 10/03/20 07:15 69 18 100 10/03/20 07:00 69 17 119/87 (98) 100 10/03/20 06:45 68 18 121/88 (99) 100 10/03/20 06:30 77 22 10/03/20 06:30 68 21 136/82 (100) 100 10/03/20 06:30 68 21 136/82 (100) 100 10/03/20 06:15 69 20 128/92 (104) 100 10/03/20 06:00 56 17 112/84 (93) 100 10/03/20 05:45 57 17 113/84 (94) 100 10/03/20 05:30 60 17 111/77 (88) 100 10/03/20 05:15 58 17 110/78 (89) 100 10/03/20 05:00 57 17 105/79 (88) 100 10/03/20 04:45 58 17 108/74 (85) 100 10/03/20 04:30 61 17 108/74 (85) 100 10/03/20 04:15 62 16 107/77 (87) 100 10/03/20 04:00 Mechanical Ventilator 10/03/20 04:00 66 10/03/20 04:00 63 18 110/79 (89) 100 10/03/20 03:45 70 17 117/81 (93) 100 10/03/20 03:30 70 18 121/84 (96) 100 10/03/20 03:30 70 18 121/84 (96) 100 10/03/20 03:27 74 17 40 10/03/20 03:15 75 18 124/83 (97) 100 10/03/20 03:00 76 23 118/83 (95) 100 10/03/20 02:45 74 28 119/85 (96) 100 10/03/20 02:30 70 24 141/98 (112) 100 10/03/20 02:15 61 17 105/70 (82) 100 10/03/20 02:00 60 18 103/68 (80) 100 10/03/20 01:45 66 17 103/71 (82) 100 10/03/20 01:30 73 17 105/77 (86) 100 10/03/20 01:15 78 22 114/80 (91) 100 10/03/20 01:15 78 22 114/80 (91) 100 10/03/20 01:00 79 22 118/76 (90) 100 10/03/20 00:45 87 19 157/90 (112) 100 10/03/20 00:30 83 26 137/93 (108) 100 10/03/20 00:15 85 23 130/82 (98) 100 10/03/20 00:02 40 10/03/20 00:01 Mechanical Ventilator 10/03/20 00:00 61 10/03/20 00:00 86 19 100 10/03/20 00:00 86 19 140/91 (107) 100 10/02/20 23:45 80 19 122/77 (92) 100 10/02/20 23:30 86 20 120/78 (92) 100 10/02/20 23:21 84 21 40 10/02/20 23:15 82 18 141/87 (105) 100 10/02/20 23:00 83 20 116/81 (93) 100 10/02/20 22:45 75 18 121/85 (97) 98 10/02/20 22:30 76 19 116/81 (93) 99 10/02/20 22:15 76 19 137/98 (111) 99 10/02/20 22:00 74 19 127/88 (101) 99 10/02/20 21:45 76 20 126/34 (64) 100 10/02/20 21:30 58 19 115/76 (89) 100 10/02/20 21:15 59 20 104/80 (88) 100 10/02/20 21:15 59 20 104/80 (88) 100 10/02/20 21:00 59 19 106/76 (86) 100 10/02/20 20:45 63 19 95/66 (76) 100 10/02/20 20:30 64 20 76/54 (61) 100 10/02/20 20:15 71 21 74/50 (58) 100 10/02/20 20:00 40 10/02/20 20:00 98.9 74 19 85/62 (70) 100 10/02/20 20:00 71 10/02/20 20:00 Mechanical Ventilator 10/02/20 19:45 75 21 85/56 (66) 100 10/02/20 19:35 73 17 40 10/02/20 19:30 74 17 100 10/02/20 19:30 74 17 89/62 (71) 100 10/02/20 19:15 72 17 88/60 (69) 100 10/02/20 19:00 74 20 80/58 (65) 100 10/02/20 18:45 75 19 87/63 (71) 100 10/02/20 18:30 74 20 91/63 (72) 100 10/02/20 18:15 77 18 94/65 (75) 100 10/02/20 18:00 77 21 88/70 (76) 100 10/02/20 17:57 72 19 40 10/02/20 17:45 77 18 149/109 (122) 10/02/20 17:32 79 17 112/72 (85) 99 10/02/20 17:30 78 21 100 10/02/20 17:15 67 20 100 10/02/20 17:00 67 20 107/66 (80) 100 10/02/20 16:45 69 21 108/67 (81) 100 10/02/20 16:30 68 20 101/64 (76) 100 10/02/20 16:15 97.2 74 22 98/68 (78) 100 10/02/20 16:00 Mechanical Ventilator 10/02/20 16:00 40 10/02/20 16:00 72 19 96/62 (73) 100 10/02/20 16:00 67 10/02/20 15:45 77 22 98/60 (73) 100 10/02/20 15:30 82 22 99/65 (76) 100 10/02/20 15:15 83 19 112/65 (81) 100 10/02/20 15:13 78 18 40 10/02/20 15:00 83 20 111/67 (82) 100 10/02/20 14:45 86 24 116/64 (81) 100 10/02/20 14:35 40 10/02/20 14:30 86 20 117/73 (88) 100 10/02/20 14:15 85 25 123/70 (87) 100 10/02/20 14:08 87 23 128/76 (93) 100 10/02/20 14:00 84 22 123/70 (87) 100 10/02/20 14:00 85 23 125/77 (93) 100 10/02/20 13:45 85 25 140/83 (102) 100 10/02/20 13:30 74 24 93/31 (51) 100 10/02/20 13:19 84 23 40 10/02/20 13:15 72 23 103/70 (81) 100 10/02/20 13:14 94/63 10/02/20 13:00 74 24 94/63 (73) 100 10/02/20 13:00 97.3 84 24 125/77 (93) 100 Height (Feet): 6 Height (Inches): 8.00 Weight (Pounds): 165 Gen: Intubated on Vent HEENT: NCAT, MMM, No scleral icterus Pulm: RRR No accessory mescle use Abd: Soft, ND, + BS Neuro: Not following SKIN: Exposed skin normal in color no rash noted Microbiology Date/Time Source Procedure Growth Status 10/01/20 08:15 Sputum Gram Stain - Final Resulted 10/01/20 08:15 Sputum Culture - Preliminary Klebsiella Pneumoniae Staphylococcus Aureus Resulted 09/30/20 14:30 Indwelling Cath Urine Culture - Final NO GROWTH AFTER 48 HOURS Complete Laboratory Tests Test 10/02/20 19:45 10/03/20 03:43 10/03/20 08:32 Vancomycin Level Trough 22.0 ug/mL (5.0-12.0) H White Blood Count 15.1 K/UL (4.8-10.8) H Red Blood Count 3.02 M/UL (4.70-6.10) L Hemoglobin 9.3 G/DL (14.2-18.0) L Hematocrit 28.8 % (42.0-52.0) L Mean Corpuscular Volume 95 FL (80-99) Mean Corpuscular Hemoglobin 30.9 PG (27.0-31.0) Mean Corpuscular Hemoglobin Concent 32.4 G/DL (32.0-36.0) Red Cell Distribution Width 17.5 % (11.6-14.8) H Platelet Count 48 K/UL (150-450) L Mean Platelet Volume 9.5 FL (6.5-10.1) Neutrophils (%) (Auto) % (45.0-75.0) Lymphocytes (%) (Auto) % (20.0-45.0) Monocytes (%) (Auto) % (1.0-10.0) Eosinophils (%) (Auto) % (0.0-3.0) Basophils (%) (Auto) % (0.0-2.0) Differential Total Cells Counted 100 Neutrophils % (Manual) 82 % (45-75) H Lymphocytes % (Manual) 5 % (20-45) L Monocytes % (Manual) 8 % (1-10) Eosinophils % (Manual) 0 % (0-3) Basophils % (Manual) 0 % (0-2) Band Neutrophils 5 % (0-8) Platelet Estimate Decreased L Platelet Morphology Normal Hypochromasia 1+ Anisocytosis 1+ Target Cells Occasional Schistocytes Rare Sodium Level 139 MMOL/L (136-145) Potassium Level 3.7 MMOL/L (3.5-5.1) Chloride Level 107 MMOL/L (98-107) Carbon Dioxide Level 18 MMOL/L (21-32) L Anion Gap 14 mmol/L (5-15) Blood Urea Nitrogen 58 mg/dL (7-18) H Creatinine 7.1 MG/DL (0.55-1.30) H Estimat Glomerular Filtration Rate 9.1 mL/min (>60) Glucose Level 172 MG/DL (74-106) H Uric Acid 8.8 MG/DL (2.6-7.2) H Calcium Level 8.8 MG/DL (8.5-10.1) Phosphorus Level 4.2 MG/DL (2.5-4.9) Magnesium Level 2.2 MG/DL (1.8-2.4) Total Bilirubin 0.7 MG/DL (0.2-1.0) Aspartate Amino Transf (AST/SGOT) 35 U/L (15-37) Alanine Aminotransferase (ALT/SGPT) 29 U/L (12-78) Alkaline Phosphatase 81 U/L (46-116) C-Reactive Protein, Quantitative 2.6 mg/dL (0.00-0.90) H Pro-B-Type Natriuretic Peptide 5594 pg/mL (0-125) H Total Protein 5.5 G/DL (6.4-8.2) L Albumin 2.3 G/DL (3.4-5.0) L Globulin 3.2 g/dL Albumin/Globulin Ratio 0.7 (1.0-2.7) L Random Vancomycin Level 21.7 ug/mL Arterial Blood pH 7.403 (7.350-7.450) Arterial Blood Partial Pressure CO2 28.9 mmHg (35.0-45.0) L Arterial Blood Partial Pressure O2 146.3 mmHg (75.0-100.0) H Arterial Blood HCO3 17.6 mmol/L (22.0-26.0) *L Arterial Blood Oxygen Saturation 98.2 % (95-100) Arterial Blood Base Excess -6.2 (-2-2) L Onesimo Test Positive Current Medications Medications (Trade) Dose Ordered Sig/Alfredo Route PRN Reason Start Time Stop Time Status Last Admin Dose Admin Acetaminophen (Tylenol) 650 mg EVERY 6 HOURS PRN NG Temp >100.5 09/30/20 02:30 10/30/20 02:29 Albumin Human 100 ml @ 100 mls/hr ONCE ONCE IV 10/03/20 12:15 10/03/20 13:14 Allopurinol (Zyloprim) 100 mg DAILY NG 10/01/20 12:00 10/31/20 11:59 10/03/20 08:13 Chlorhexidine Gluconate (Babita-Hex 2%) 1 applic DAILY@2000 TOPIC 09/30/20 20:00 12/29/20 19:59 10/02/20 20:46 Dextrose (Dextrose 50%) 25 ml Q30M PRN IV Hypoglycemia 09/30/20 02:30 12/29/20 02:29 Dextrose (Dextrose 50%) 50 ml Q30M PRN IV Hypoglycemia 09/30/20 02:30 12/29/20 02:29 Dextrose/Sodium Chloride 1,000 ml @ 75 mls/hr [id number] IV 09/30/20 03:30 10/30/20 03:29 10/02/20 07:11 Famotidine (Pepcid I.v.) 20 mg DAILY IVP 09/30/20 10:00 10/30/20 09:59 10/03/20 08:13 Hydrocortisone (Solu-CORTEF) 100 mg EVERY 8 HOURS IV 09/30/20 14:00 12/29/20 13:59 10/03/20 06:30 Levetiracetam 100 ml @ 400 mls/hr Q12HR IVPB 10/02/20 09:00 12/31/20 08:59 10/03/20 08:13 Lorazepam (Ativan 2mg/ml 1ml) 1 mg Q4H PRN IV For Seizures 10/01/20 16:00 10/08/20 15:59 10/02/20 10:00 Metolazone (Zaroxolyn) 10 mg ONCE NG 10/03/20 12:30 10/03/20 13:30 Norepinephrine Bitartrate 8 mg/ Dextrose 250 ml @ 0 mls/hr Q24H IV 10/03/20 12:45 10/06/20 12:44 Piperacillin Sod/ Tazobactam Sod 3.375 gm/Sodium Chloride 110 ml @ 27.5 mls/hr Q12HR IVPB 09/30/20 09:00 10/07/20 08:59 10/03/20 09:14 Sodium Citrate (Bicitra) 30 ml EVERY 6 HOURS NG 10/01/20 12:00 10/31/20 11:59 10/03/20 06:30 Vancomycin HCl ([facility] pharmacy to dose) 1 ea DAILY PRN MISC Per rx protocol 09/30/20 10:00 10/30/20 09:59 Selena Bartlett M.D. Oct 03, 2020 13:13
--- NOTE | 2020-10-03 13:52 | NUR ---
NURSE NOTES: 2D-Echo completed and patient tolerated the procedure well, Bp is 113/73, HR of 74, Saturations of 100% and RR of 22. blood cultures collected by the central line awaiting for peripheral blood draws to be obtained by the stave planer tender.
--- NOTE | 2020-10-03 14:00 | NUR ---
NURSE NOTES: Blood culture collected through the central line Right IJ TLC. awaiting for peripheral blood culture.
--- NOTE | 2020-10-03 15:49 | Internal Med Progress Note ---
Subjective Date of Service: Oct 03, 2020 Physician Name Semaj Kay Attending Physician Ken Hutton MD Current Medications Medications (Trade) Dose Ordered Sig/Alfredo Route PRN Reason Start Time Stop Time Status Last Admin Dose Admin Acetaminophen (Tylenol) 650 mg EVERY 6 HOURS PRN NG Temp >100.5 09/30/20 02:30 10/30/20 02:29 Allopurinol (Zyloprim) 100 mg DAILY NG 10/01/20 12:00 10/31/20 11:59 10/03/20 08:13 Chlorhexidine Gluconate (Babita-Hex 2%) 1 applic DAILY@2000 TOPIC 09/30/20 20:00 12/29/20 19:59 10/02/20 20:46 Dextrose (Dextrose 50%) 25 ml Q30M PRN IV Hypoglycemia 09/30/20 02:30 12/29/20 02:29 Dextrose (Dextrose 50%) 50 ml Q30M PRN IV Hypoglycemia 09/30/20 02:30 12/29/20 02:29 Dextrose/Sodium Chloride 1,000 ml @ 75 mls/hr [id number] IV 09/30/20 03:30 10/30/20 03:29 10/03/20 12:54 Famotidine (Pepcid I.v.) 20 mg DAILY IVP 09/30/20 10:00 10/30/20 09:59 10/03/20 08:13 Hydrocortisone (Solu-CORTEF) 100 mg EVERY 8 HOURS IV 09/30/20 14:00 12/29/20 13:59 10/03/20 12:54 Levetiracetam 100 ml @ 400 mls/hr Q12HR IVPB 10/02/20 09:00 12/31/20 08:59 10/03/20 08:13 Lorazepam (Ativan 2mg/ml 1ml) 1 mg Q4H PRN IV For Seizures 10/01/20 16:00 10/08/20 15:59 10/02/20 10:00 Norepinephrine Bitartrate 8 mg/ Dextrose 250 ml @ 0 mls/hr Q24H IV 10/03/20 12:45 10/06/20 12:44 10/03/20 13:30 Piperacillin Sod/ Tazobactam Sod 3.375 gm/Sodium Chloride 110 ml @ 27.5 mls/hr Q12HR IVPB 09/30/20 09:00 10/07/20 08:59 10/03/20 09:14 Sodium Citrate (Bicitra) 30 ml EVERY 6 HOURS NG 10/01/20 12:00 10/31/20 11:59 10/03/20 12:54 [facility] 1 ea DAILY PRN MISC Per rx protocol 09/30/20 10:00 10/30/20 09:59 Allergies: Coded Allergies: No Known Allergies (Unverified , 09/13/20) ROS Limited/Unobtainable: Yes Subjective 75 YO M with recent diagnosis of thalassemia admitted with altered mental status. S/P cardiopulmonary arrest 09/29/20. Intubated and sedated. ICU. Cover for Int Med-Dr Hutton Objective Last Vital Signs Date Time Temp Pulse Resp B/P (MAP) Pulse Ox O2 Delivery O2 Flow Rate FiO2 10/03/20 15:00 77 22 109/68 (82) 100 10/03/20 13:01 40 10/03/20 12:01 97.1 10/03/20 12:00 Mechanical Ventilator 10/01/20 04:00 100.0 Laboratory Tests Test 10/02/20 19:45 10/03/20 03:43 10/03/20 08:32 10/03/20 13:15 Vancomycin Level Trough 22.0 ug/mL (5.0-12.0) H White Blood Count 15.1 K/UL (4.8-10.8) H Red Blood Count 3.02 M/UL (4.70-6.10) L Hemoglobin 9.3 G/DL (14.2-18.0) L Hematocrit 28.8 % (42.0-52.0) L Mean Corpuscular Volume 95 FL (80-99) Mean Corpuscular Hemoglobin 30.9 PG (27.0-31.0) Mean Corpuscular Hemoglobin Concent 32.4 G/DL (32.0-36.0) Red Cell Distribution Width 17.5 % (11.6-14.8) H Platelet Count 48 K/UL (150-450) L Mean Platelet Volume 9.5 FL (6.5-10.1) Neutrophils (%) (Auto) % (45.0-75.0) Lymphocytes (%) (Auto) % (20.0-45.0) Monocytes (%) (Auto) % (1.0-10.0) Eosinophils (%) (Auto) % (0.0-3.0) Basophils (%) (Auto) % (0.0-2.0) Differential Total Cells Counted 100 Neutrophils % (Manual) 82 % (45-75) H Lymphocytes % (Manual) 5 % (20-45) L Monocytes % (Manual) 8 % (1-10) Eosinophils % (Manual) 0 % (0-3) Basophils % (Manual) 0 % (0-2) Band Neutrophils 5 % (0-8) Platelet Estimate Decreased L Platelet Morphology Normal Hypochromasia 1+ Anisocytosis 1+ Target Cells Occasional Schistocytes Rare Sodium Level 139 MMOL/L (136-145) Potassium Level 3.7 MMOL/L (3.5-5.1) Chloride Level 107 MMOL/L (98-107) Carbon Dioxide Level 18 MMOL/L (21-32) L Anion Gap 14 mmol/L (5-15) Blood Urea Nitrogen 58 mg/dL (7-18) H Creatinine 7.1 MG/DL (0.55-1.30) H Estimat Glomerular Filtration Rate 9.1 mL/min (>60) Glucose Level 172 MG/DL (74-106) H Uric Acid 8.8 MG/DL (2.6-7.2) H Calcium Level 8.8 MG/DL (8.5-10.1) Phosphorus Level 4.2 MG/DL (2.5-4.9) Magnesium Level 2.2 MG/DL (1.8-2.4) Total Bilirubin 0.7 MG/DL (0.2-1.0) Aspartate Amino Transf (AST/SGOT) 35 U/L (15-37) Alanine Aminotransferase (ALT/SGPT) 29 U/L (12-78) Alkaline Phosphatase 81 U/L (46-116) C-Reactive Protein, Quantitative 2.6 mg/dL (0.00-0.90) H Pro-B-Type Natriuretic Peptide 5594 pg/mL (0-125) H Total Protein 5.5 G/DL (6.4-8.2) L Albumin 2.3 G/DL (3.4-5.0) L Globulin 3.2 g/dL Albumin/Globulin Ratio 0.7 (1.0-2.7) L Random Vancomycin Level 21.7 ug/mL Arterial Blood pH 7.403 (7.350-7.450) Arterial Blood Partial Pressure CO2 28.9 mmHg (35.0-45.0) L Arterial Blood Partial Pressure O2 146.3 mmHg (75.0-100.0) H Arterial Blood HCO3 17.6 mmol/L (22.0-26.0) *L Arterial Blood Oxygen Saturation 98.2 % (95-100) Arterial Blood Base Excess -6.2 (-2-2) L Onesimo Test Positive POC Whole Blood Glucose 199 MG/DL (74-106) H Microbiology Date/Time Source Procedure Growth Status 10/01/20 08:15 Sputum Gram Stain - Final Resulted 10/01/20 08:15 Sputum Culture - Preliminary Klebsiella Pneumoniae Staphylococcus Aureus Resulted Intake and Output 10/02/20 10/03/20 19:00 07:00 Intake Total 1483.4375 ml 599.75 ml Output Total 70 ml 280 ml Balance 1413.4375 ml 319.75 ml IV Total 1243.4375 ml 359.75 ml Tube Feeding 240 ml 240 ml Output Urine Total 70 ml 280 ml Objective Physical Exam General Appearance: lethargic Lines, tubes and drains: central line - R IJ HEENT: normocephalic, atraumatic, other - Pupils are 2 mm and sluggish reaction to light. Neck: non-tender Respiratory/Chest: lungs clear Cardiovascular/Chest: normal rate Abdomen: no mass, hypoactive bowel sounds Extremities: non-pitting Neurologic: unresponsiveness Assessment/Plan Assessment/Plan Assessment/Plan Status: unchanged Assessment/Plan: 75 y/o Male admitted to the Hospital with; # AMS # Acute encephalopathy # Acute hypoxemic respiratory failure # Respiratory acidosis. ABG monitoring. Intubation in the ER Pulmonary/ICU wtih Dr. Benavidez Renal consultation with Dr. Estrada. Add CT head wo contrast to rule out bleed vs other completing today. On route. EEG ordered today as no prior order found. Concern for anoxic brain injury. Seizure disorder # Pneumonia vs other ID consultation with Dr. aJmarcus Rick and Vancomycin Follow up lactate and wbc, cultures Covid Ag is NEGATIVE, PCR sent and pending. PUI status # Thalassemia Recent BM biopsy which was negative per family report. [place] MR [place] is [id number] ( [place] [facility] [place] Supportive care Consider Hematology follow up as needed Continue maged per neurology=Dr Carranza # FTT - anorexia and weight loss Supportive care RD consult in the next 2 days for nutrition DNR DVT ppx GI ppx R IJ Semaj Rodas MD Oct 03, 2020 15:49
--- NOTE | 2020-10-03 17:35 | NUR ---
NURSE NOTES: patient tolerated being repositioned on her side at 90 degress with no episodes of sob or desaturation. tube feeding residual remains low with rate of 55ml/hr.
--- NOTE | 2020-10-03 19:10 | NUR ---
NURSE NOTES: Received patient from KIRBY Diallo. patient is in bed opens eyes, but no tracking. sinus rhythm on the monitor. ETT 7.5, 23cm at the lip. AC 16 TV 500 FiO2 40% PEEP 5. NGT in place running tube feeding nepro @20ml/hr. vaughn in place and draining well to gravity. RIJ TLC in place. dressing clean dry and intact. levophed @2mcg/hr and D51/2NS @75. bed to lowest position and locked. call light within easy reach. side rails up x2. will continue plan of care.
--- NOTE | 2020-10-03 19:41 | NUR ---
NURSE HAND-OFF REPORT: Latest Vital Signs: Temperature 96.2 , Pulse 96 , B/P 97 /66 , Respiratory Rate 20 , O2 SAT 100 , Mechanical Ventilator, O2 Flow Rate 100.0 . Vital Sign Comment: EKG Rhythm: Sinus Rhythm Rhythm change?: N MD Notified?: - MD Response: Latest Carty Fall Score: 50 Fall Risk: High Risk Safety Measures: Call light Within Reach, Bed Alarm Zone 1, Side Rails Side Rails x3, Bed position Low and Locked. Fall Precautions: Yellow Socks Door Sign Patient Fall Education Report given to KIRBY Jackson.
[2020-10-03] MEDS: Dyna-Hex 2% Top Sol 2oz TOPIC SCH (20:39)
--- NOTE | 2020-10-03 21:41 | NUR ---
NURSE NOTES: report given to Autumn Rocha RN
--- NOTE | 2020-10-03 21:42 | NUR ---
NURSE NOTES: received pt from Manuel ORR., pt open eyes without track. cardiac technician shows SR at this time. ETT 7.5 25cm AC 16 TV500 Fio2 40% peep5. Gtube noted, no residual noted, nephro is running at 20ml/hr. O2sat is at 98%, no s/s of SOB at this time. [place] cath is in, slight urine amount noted. right IJ TLC noted intact, clean, and patent. D5 1/2 Ns is running at 75 ml/hr, and Levophed is running at 2mcg/min,. call light within reach. bed at the lowest position, alarmed, and locked. will continue to monitor pt with plan of care.
--- NOTE | 2020-10-03 23:00 | NUR ---
NURSE NOTES: pt is clam at this time, VSS. no SOB noted at this time. no active bleeding noted.
[2020-10-04] VITALS (33 sets, daily range): BP systolic 95–115; BP diastolic 59–78
--- NOTE | 2020-10-04 | NUR ---
NURSE NOTES: repositioned pt, oral care given. oral suctioned. call light within reach. no active bleeding noted at this time. will continue to monitor pt.
[2020-10-04] MEDS: Sodium Citrate 30ml NG SCH ×4 (00:25→17:42)
[2020-10-04] MEDS: D5 1/2NS 1,000 ML IV SCH ×2 (00:25→14:07)
--- NOTE | 2020-10-04 02:00 | NUR ---
NURSE NOTES: repositioned pt, cleaned pt, dressing changed for the wound. BM 3 times noted. brown. provided new gown, new blanket, and new pillow cases.
--- NOTE | 2020-10-04 04:00 | NUR ---
NURSE NOTES: pt resting on the bed. no s/s of pain at this time. call light within reach. no residual noted from the feeding tube.
[2020-10-04 05:28] LABS: HEMATOCRIT 24.9 % (42.0-52.0); HEMOGLOBIN 8.2 G/DL (14.2-18.0); MEAN CORPUSCULAR VOLUME 94 FL (80-99); PLATELET COUNT 41 K/UL (150-450); RED BLOOD COUNT 2.64 M/UL (4.70-6.10); RED CELL DISTRIBUTION WIDTH 17.6 % (11.6-14.8); WHITE BLOOD COUNT 12.1 K/UL (4.8-10.8)
[2020-10-04] MEDS: Hydrocortisone 100mg Inj IV SCH ×3 (05:29→21:24)
[2020-10-04 05:45] LABS: ALBUMIN 2.4 G/DL (3.4-5.0); ALBUMIN/GLOBULIN RATIO 0.9 (1.0-2.7); BILIRUBIN,TOTAL 0.6 MG/DL (0.2-1.0); CALCIUM 9.1 MG/DL (8.5-10.1); CREATININE 7.2 MG/DL (0.55-1.30); POTASSIUM 3.2 MMOL/L (3.5-5.1)
--- NOTE | 2020-10-04 06:00 | NUR ---
NURSE NOTES: repositioned pt, oral care given. VSS. call light within reach. will continue to monitor pt.
[2020-10-04 06:05] LABS: CREATINE KINASE 12 U/L (26-308); PHOSPHORUS 3.9 MG/DL (2.5-4.9)
--- NOTE | 2020-10-04 07:20 | NUR ---
NURSE HAND-OFF REPORT: Latest Vital Signs: Temperature 98.4 , Pulse 75 , B/P 110 /73 , Respiratory Rate 17 , O2 SAT 100 , Mechanical Ventilator, O2 Flow Rate 100.0 . Vital Sign Comment: [stable] EKG Rhythm: Sinus Rhythm Rhythm change?: N MD Notified?: - MD Response: Latest Carty Fall Score: 50 Fall Risk: High Risk Safety Measures: Call light Within Reach, Bed Alarm Zone 1, Side Rails Side Rails x3, Bed position Low and Locked. Fall Precautions: Yellow Socks Door Sign Patient Fall Education Report given to [Jose E RN].
--- NOTE | 2020-10-04 07:20 | NUR ---
NURSE NOTES: Received report from Autumn Rocha RN. Patient in bed resting, no active s/s cardiac, respiratory distress noticed at this time. Patient SR with HR 75, ETT 7.5, 25cm at the lip line, vent setting AV 16 TV 500 Fio2 40% O2sat 100% PEEP 5. NGT on the left nares intact patent, Nephro @ 20ml/h, no residual at this time, elevated HOB. Cart[place]a Catheter draining well to gravity, MD made aware of decreased UO. Right IJ TLC patent, intact. IVF D5 1/2 NS @ 75ml/h, on Levophed 4mcg/min, BP 105/54 at this time. Bed in lowest position, side rails upx2, call light within reach, bed alarm on, Will continue to monitor.
[2020-10-04] MEDS: levETIRAcetam 500mg/NS100ml 100 ML IVPB SCH ×2 (08:27→21:25)
[2020-10-04] MEDS: Allopurinol 100mg Tab NG SCH (08:27)
[2020-10-04] MEDS: Piperacillin/Tazobactam 3.375 GM in NS 110 ML IVPB SCH ×2 (08:27→21:25)
--- NOTE | 2020-10-04 09:15 | Infectious Diseases Prog Note ---
Assessment/Plan 75 yo male with PMHx of failure to thrive, HTN, thalassemia, pancytopenia, HLD, Depression who was sent to the ED from his group home for AMS. Septic Shock PNA Acute hypoxic resp failure sp VDRF -10/01 sp cx S. aureus (sensi p), K. pna (r amp; otherwise S) -09/30 COVID PCr neg -09/30 CXR: Bibasilar atelectasis versus infiltrates CXR 09/29/20 - Left basilar atelectasis. No acute process otherwise. Evidence of old granulomatous disease rapid covid ag neg S. epi bacteremia- contaminant vs real -10/03 Bcx p -09/29 BCx / sets S. epi Leukocytosis; increaed No fever -09/30 ucx neg AMS -CT head: New NG tube and mid to distal esophagus. Recommend advancement. Bibasilar atelectasis versus infiltrates Lactic acidosis Failure to thrive HTN Thalassemia Pancytopenia HLD Depression Adenomatous colonic polyps PLAN - Continue Zosyn #4 10/03/20 SP Vancomycin #3 - f/u COVID 19 Ag screen - f/u Cultures - Monitor CBC and Temps -BCx (periheral and line) 2d echo Thank you for this consult. [facility] will continue to follow Mr. Vargas while he in hospitalized. Subjective Allergies: Coded Allergies: No Known Allergies (Unverified , 09/13/20) Afebrile WBCs 12 Sp Cx Staph aureus and K. pneumo Objective Last 24 Hour Vital Signs Date Time Temp Pulse Resp B/P (MAP) Pulse Ox O2 Delivery O2 Flow Rate FiO2 10/04/20 07:30 76 18 40 10/04/20 07:00 77 16 111/70 (84) 100 10/04/20 07:00 110/73 10/04/20 06:30 83 22 10/04/20 06:00 110/67 10/04/20 06:00 75 17 109/66 (80) 100 10/04/20 05:11 73 16 40 10/04/20 05:00 109/79 10/04/20 05:00 74 16 105/67 (80) 100 10/04/20 04:00 98.4 82 16 111/70 (84) 100 10/04/20 04:00 40 10/04/20 04:00 102/82 10/04/20 04:00 Mechanical Ventilator 10/04/20 03:29 76 10/04/20 03:13 79 16 40 10/04/20 03:00 114/74 10/04/20 03:00 82 17 108/67 (81) 100 10/04/20 02:30 91 21 95/62 (73) 100 10/04/20 02:00 77 17 101/61 (74) 100 10/04/20 02:00 102/59 10/04/20 01:15 84 19 40 10/04/20 01:00 109/65 10/04/20 01:00 79 19 111/71 (84) 100 10/04/20 00:45 72 18 100/59 (73) 100 10/04/20 00:30 69 18 98/65 (76) 100 10/04/20 00:15 66 17 101/63 (76) 100 10/04/20 00:13 71 18 99/63 (75) 100 10/04/20 00:00 99/63 10/04/20 00:00 Mechanical Ventilator 10/04/20 00:00 98.7 65 18 98/62 (74) 100 10/03/20 23:30 80 18 97/62 (74) 100 10/03/20 23:18 83 10/03/20 23:15 98/62 10/03/20 23:15 77 18 93/60 (71) 100 10/03/20 23:10 84/55 10/03/20 23:10 79 18 84/55 (65) 100 10/03/20 23:08 77 22 40 10/03/20 23:00 105/61 10/03/20 23:00 79 18 92/61 (71) 100 10/03/20 22:00 104/65 10/03/20 22:00 82 19 97/61 (73) 100 10/03/20 21:05 80 22 40 10/03/20 21:00 106/68 10/03/20 21:00 70 18 94/60 (71) 100 10/03/20 20:30 71 18 87/55 (66) 100 10/03/20 20:00 40 10/03/20 20:00 80 10/03/20 20:00 Mechanical Ventilator 10/03/20 20:00 92/59 10/03/20 20:00 98.5 80 17 96/62 (73) 100 10/03/20 19:30 82 19 102/70 (81) 100 10/03/20 19:19 96 20 40 10/03/20 19:00 97/66 10/03/20 19:00 81 18 97/66 (76) 100 10/03/20 18:30 110/72 10/03/20 18:00 109/65 10/03/20 18:00 83 20 109/65 (80) 100 10/03/20 17:51 81 19 40 10/03/20 17:30 81 20 109/68 (82) 100 10/03/20 17:00 113/75 10/03/20 17:00 83 22 109/68 (82) 100 10/03/20 16:30 89 25 134/93 (107) 100 10/03/20 16:00 96.2 78 24 113/70 (84) 95 10/03/20 16:00 113/70 10/03/20 16:00 82 10/03/20 16:00 Mechanical Ventilator 10/03/20 16:00 40 10/03/20 15:40 82 21 40 10/03/20 15:30 73 21 97/58 (71) 100 10/03/20 15:00 109/68 10/03/20 15:00 77 22 109/68 (82) 100 10/03/20 14:30 79 22 107/64 (78) 100 10/03/20 14:00 108/69 10/03/20 14:00 80 22 108/69 (82) 100 10/03/20 13:30 127/90 10/03/20 13:30 79 20 127/90 (102) 100 10/03/20 13:01 75 19 40 10/03/20 13:00 75 19 104/69 (81) 100 10/03/20 13:00 104/69 10/03/20 12:30 64 19 106/64 (78) 100 10/03/20 12:01 97.1 64 19 102/68 (79) 100 10/03/20 12:00 40 10/03/20 12:00 64 19 102/68 (79) 100 10/03/20 12:00 Mechanical Ventilator 10/03/20 12:00 106/68 10/03/20 12:00 64 10/03/20 11:30 66 18 106/64 (78) 100 10/03/20 11:19 69 18 40 10/03/20 11:00 66 18 104/68 (80) 100 10/03/20 11:00 103/67 10/03/20 10:00 74 19 113/72 (86) 100 10/03/20 10:00 113/72 10/03/20 09:30 73 17 119/81 (94) 100 Height (Feet): 6 Height (Inches): 8.00 Weight (Pounds): 165 Gen: Intubated on Vent 30% O2 HEENT: NCAT, MMM, No scleral icterus Pulm: RRR No accessory mescle use Abd: Soft, ND, + BS Neuro: Not following SKIN: Exposed skin normal in color no rash noted Laboratory Tests Test 10/03/20 13:15 10/03/20 16:10 10/03/20 17:52 10/03/20 18:50 POC Whole Blood Glucose 199 MG/DL (74-106) H 157 MG/DL (74-106) H Lactic Acid Level 2.40 mmol/L (0.4-2.0) H 2.60 mmol/L (0.66-2.22) H Test 10/04/20 04:20 10/04/20 07:46 White Blood Count 12.1 K/UL (4.8-10.8) H Red Blood Count 2.64 M/UL (4.70-6.10) L Hemoglobin 8.2 G/DL (14.2-18.0) L Hematocrit 24.9 % (42.0-52.0) L Mean Corpuscular Volume 94 FL (80-99) Mean Corpuscular Hemoglobin 30.9 PG (27.0-31.0) Mean Corpuscular Hemoglobin Concent 32.8 G/DL (32.0-36.0) Red Cell Distribution Width 17.6 % (11.6-14.8) H Platelet Count 41 K/UL (150-450) L Mean Platelet Volume 9.6 FL (6.5-10.1) Neutrophils (%) (Auto) % (45.0-75.0) Lymphocytes (%) (Auto) % (20.0-45.0) Monocytes (%) (Auto) % (1.0-10.0) Eosinophils (%) (Auto) % (0.0-3.0) Basophils (%) (Auto) % (0.0-2.0) Sodium Level 144 MMOL/L (136-145) Potassium Level 3.2 MMOL/L (3.5-5.1) L Chloride Level 108 MMOL/L (98-107) H Carbon Dioxide Level 20 MMOL/L (21-32) L Anion Gap 16 mmol/L (5-15) H Blood Urea Nitrogen 64 mg/dL (7-18) H Creatinine 7.2 MG/DL (0.55-1.30) H Estimat Glomerular Filtration Rate 9.0 mL/min (>60) Glucose Level 177 MG/DL (74-106) H Lactic Acid Level 2.50 mmol/L (0.4-2.0) H Uric Acid 8.6 MG/DL (2.6-7.2) H Calcium Level 9.1 MG/DL (8.5-10.1) Phosphorus Level 3.9 MG/DL (2.5-4.9) Magnesium Level 2.1 MG/DL (1.8-2.4) Total Bilirubin 0.6 MG/DL (0.2-1.0) Aspartate Amino Transf (AST/SGOT) 33 U/L (15-37) Alanine Aminotransferase (ALT/SGPT) 31 U/L (12-78) Alkaline Phosphatase 99 U/L (46-116) Total Creatine Kinase 12 U/L (26-308) L C-Reactive Protein, Quantitative 1.0 mg/dL (0.00-0.90) H Pro-B-Type Natriuretic Peptide 7122 pg/mL (0-125) H Total Protein 5.2 G/DL (6.4-8.2) L Albumin 2.4 G/DL (3.4-5.0) L Globulin 2.8 g/dL Albumin/Globulin Ratio 0.9 (1.0-2.7) L Random Vancomycin Level 21.7 ug/mL Arterial Blood pH 7.434 (7.350-7.450) Arterial Blood Partial Pressure CO2 27.2 mmHg (35.0-45.0) L Arterial Blood Partial Pressure O2 118.2 mmHg (75.0-100.0) H Arterial Blood HCO3 17.8 mmol/L (22.0-26.0) *L Arterial Blood Oxygen Saturation 98.1 % (95-100) Arterial Blood Base Excess -5.5 (-2-2) L Onesimo Test Positive Current Medications Medications (Trade) Dose Ordered Sig/Alfredo Route PRN Reason Start Time Stop Time Status Last Admin Dose Admin Acetaminophen (Tylenol) 650 mg EVERY 6 HOURS PRN NG Temp >100.5 09/30/20 02:30 10/30/20 02:29 Allopurinol (Zyloprim) 100 mg DAILY NG 10/01/20 12:00 10/31/20 11:59 10/04/20 08:27 Chlorhexidine Gluconate (Babita-Hex 2%) 1 applic DAILY@2000 TOPIC 09/30/20 20:00 12/29/20 19:59 10/03/20 20:39 Dextrose (Dextrose 50%) 25 ml Q30M PRN IV Hypoglycemia 09/30/20 02:30 12/29/20 02:29 Dextrose (Dextrose 50%) 50 ml Q30M PRN IV Hypoglycemia 09/30/20 02:30 12/29/20 02:29 Dextrose/Sodium Chloride 1,000 ml @ 75 mls/hr [id number] IV 09/30/20 03:30 10/30/20 03:29 10/04/20 00:25 Famotidine (Pepcid I.v.) 20 mg DAILY IVP 09/30/20 10:00 10/30/20 09:59 10/04/20 08:26 Hydrocortisone (Solu-CORTEF) 100 mg EVERY 8 HOURS IV 09/30/20 14:00 12/29/20 13:59 10/04/20 05:29 Levetiracetam 100 ml @ 400 mls/hr Q12HR IVPB 10/02/20 09:00 12/31/20 08:59 10/04/20 08:27 Lorazepam (Ativan 2mg/ml 1ml) 1 mg Q4H PRN IV For Seizures 10/01/20 16:00 10/08/20 15:59 10/02/20 10:00 Norepinephrine Bitartrate 8 mg/ Dextrose 250 ml @ 0 mls/hr Q24H IV 10/03/20 12:45 10/06/20 12:44 10/03/20 13:30 Piperacillin Sod/ Tazobactam Sod 3.375 gm/Sodium Chloride 110 ml @ 27.5 mls/hr Q12HR IVPB 09/30/20 09:00 10/07/20 08:59 10/04/20 08:27 Sodium Citrate (Bicitra) 30 ml EVERY 6 HOURS NG 10/01/20 12:00 10/31/20 11:59 10/04/20 05:28 Vancomycin HCl ([facility] pharmacy to dose) 1 ea DAILY PRN MISC Per rx protocol 09/30/20 10:00 10/30/20 09:59 Yoel Ricketts MD Oct 04, 2020 09:15
--- NOTE | 2020-10-04 09:29 | NUR ---
NURSE NOTES: NG tube removed, KUB confirmed NGT not in the stomach, will put again. Dr. Hutton made aware patient abdomen distended and firm to touch. Per MD , consult with Dr. Lyles. DR. Lyles made aware, no new order received at this time.
--- NOTE | 2020-10-04 09:41 | NUR ---
RADIOLOGY DEPT., CHEST X-RAY DONE.-P.DYE
--- NOTE | 2020-10-04 10:05 | NUR ---
NURSE NOTES: Weaning trial per RT, patient tachycardic, in distress, back to AC.
--- NOTE | 2020-10-04 11:24 | NUR ---
RD ASSESSMENT & RECOMMENDATIONS SEE CARE ACTIVITY FOR COMPLETE ASSESSMENT DAILY ESTIMATED NEEDS: Needs based on Critical care 74.2kg 22-28 kcals/kg [id number] total kcals 0.6-0.8g (increase w/ renal fxn improvement) g protein/kg 44-59 g total protein per MD NUTRITION DIAGNOSIS: Swallowing difficulty r/t respiratory arrest as evidenced by pt intubated, on pressor support, ICU status, on NGT feeds. CURRENT TF:Nepro @ 20ml/hr x 24 hrs ENTERAL NUTRITION RECOMMENDATIONS: As able NEPRO @30ml/hr x24 hrs to provide 720ml, 1296kcal, 58g prot, 524ml free water - As medically appropriate, increase goal rate to 30ml/hr x 24 hrs : will meet 79% est kcal and 100% est prot needs - Monitor renal fxn, ability to increase goal rate - HOB over 30 degrees/ water flush per MD ----> If hemodynamically unstable, rec trophic feeds of Nepro @10ml/hr to maintain gut integrity. ADDITIONAL RECOMMENDATIONS: 1) Maintain calibrated bed scale wts 2) Monitor renal fxn, ability to increase TF goal rate creat 7.2, no HD at this time. 3) Monitor lytes- K low, phos and mag wnl at this time 4) Add NISS for elev BGs, pt on Solumedrol 5) Monitor hemodynamic stability: NE titrating down
--- NOTE | 2020-10-04 11:26 | NUR ---
NURSE NOTES: NGT inserted on right nares, 60 cm, awaiting for KUB result.
--- NOTE | 2020-10-04 11:35 | NUR ---
NURSE NOTES: Dr. Benavidez at the bedside, made aware of result of ABG today, md aware of low Bicarb, no new order received at this time, patient on sodium citrate.
--- NOTE | 2020-10-04 11:35 | Surgery Progress Note ---
Surgery Progress Note Subjective Additional Comments afebrile, leukocytosis. anemia, plt low. labs noted exam stable on vent support lactic acidosis Objective Last 24 Hour Vital Signs Date Time Temp Pulse Resp B/P (MAP) Pulse Ox O2 Delivery O2 Flow Rate FiO2 10/04/20 11:00 110 17 96/69 (78) 100 10/04/20 11:00 106 18 107/69 (82) 100 10/04/20 10:45 72 20 40 10/04/20 10:05 40 10/04/20 10:00 84 16 108/76 (87) 100 10/04/20 10:00 40 10/04/20 09:00 108 16 115/72 (86) 100 10/04/20 08:49 74 20 40 10/04/20 08:00 98.6 76 16 110/67 (81) 100 10/04/20 08:00 Mechanical Ventilator 10/04/20 08:00 40 10/04/20 08:00 77 10/04/20 07:30 76 18 40 10/04/20 07:00 77 16 111/70 (84) 100 10/04/20 07:00 110/73 10/04/20 06:30 83 22 10/04/20 06:00 110/67 10/04/20 06:00 75 17 109/66 (80) 100 10/04/20 05:11 73 16 40 10/04/20 05:00 109/79 10/04/20 05:00 74 16 105/67 (80) 100 10/04/20 04:00 98.4 82 16 111/70 (84) 100 10/04/20 04:00 40 10/04/20 04:00 102/82 10/04/20 04:00 Mechanical Ventilator 10/04/20 03:29 76 10/04/20 03:13 79 16 40 10/04/20 03:00 114/74 10/04/20 03:00 82 17 108/67 (81) 100 10/04/20 02:30 91 21 95/62 (73) 100 10/04/20 02:00 77 17 101/61 (74) 100 10/04/20 02:00 102/59 10/04/20 01:15 84 19 40 10/04/20 01:00 109/65 10/04/20 01:00 79 19 111/71 (84) 100 10/04/20 00:45 72 18 100/59 (73) 100 10/04/20 00:30 69 18 98/65 (76) 100 10/04/20 00:15 66 17 101/63 (76) 100 10/04/20 00:13 71 18 99/63 (75) 100 10/04/20 00:00 99/63 10/04/20 00:00 Mechanical Ventilator 10/04/20 00:00 98.7 65 18 98/62 (74) 100 10/03/20 23:30 80 18 97/62 (74) 100 10/03/20 23:18 83 10/03/20 23:15 98/62 10/03/20 23:15 77 18 93/60 (71) 100 10/03/20 23:10 84/55 10/03/20 23:10 79 18 84/55 (65) 100 10/03/20 23:08 77 22 40 10/03/20 23:00 105/61 10/03/20 23:00 79 18 92/61 (71) 100 10/03/20 22:00 104/65 10/03/20 22:00 82 19 97/61 (73) 100 10/03/20 21:05 80 22 40 10/03/20 21:00 106/68 10/03/20 21:00 70 18 94/60 (71) 100 10/03/20 20:30 71 18 87/55 (66) 100 10/03/20 20:00 40 10/03/20 20:00 80 10/03/20 20:00 Mechanical Ventilator 10/03/20 20:00 92/59 10/03/20 20:00 98.5 80 17 96/62 (73) 100 10/03/20 19:30 82 19 102/70 (81) 100 10/03/20 19:19 96 20 40 10/03/20 19:00 97/66 10/03/20 19:00 81 18 97/66 (76) 100 10/03/20 18:30 110/72 10/03/20 18:00 109/65 10/03/20 18:00 83 20 109/65 (80) 100 10/03/20 17:51 81 19 40 10/03/20 17:30 81 20 109/68 (82) 100 10/03/20 17:00 113/75 10/03/20 17:00 83 22 109/68 (82) 100 10/03/20 16:30 89 25 134/93 (107) 100 10/03/20 16:00 96.2 78 24 113/70 (84) 95 10/03/20 16:00 113/70 10/03/20 16:00 82 10/03/20 16:00 Mechanical Ventilator 10/03/20 16:00 40 10/03/20 15:40 82 21 40 10/03/20 15:30 73 21 97/58 (71) 100 10/03/20 15:00 109/68 10/03/20 15:00 77 22 109/68 (82) 100 10/03/20 14:30 79 22 107/64 (78) 100 10/03/20 14:00 108/69 10/03/20 14:00 80 22 108/69 (82) 100 10/03/20 13:30 127/90 10/03/20 13:30 79 20 127/90 (102) 100 10/03/20 13:01 75 19 40 10/03/20 13:00 75 19 104/69 (81) 100 10/03/20 13:00 104/69 10/03/20 12:30 64 19 106/64 (78) 100 10/03/20 12:01 97.1 64 19 102/68 (79) 100 10/03/20 12:00 40 10/03/20 12:00 64 19 102/68 (79) 100 10/03/20 12:00 Mechanical Ventilator 10/03/20 12:00 106/68 10/03/20 12:00 64 I&O Intake and Output 10/03/20 10/04/20 19:00 07:00 Intake Total 1279.500 ml 1463.375 ml Output Total 65 ml 110 ml Balance 1214.500 ml 1353.375 ml Free Water 125 ml 60 ml IV Total 884.500 ml 1163.375 ml Tube Feeding 240 ml 240 ml Other 30 ml Output Urine Total 65 ml 110 ml # Bowel Movements 1 3 Dressing: saturated Cardiovascular: RSR Respiratory: decreased breath sounds Abdomen: soft, present bowel sounds, decreased bowel sounds Extremities: no edema, no tenderness, no cyanosis Laboratory Tests Test 10/03/20 13:15 10/03/20 16:10 10/03/20 17:52 10/03/20 18:50 POC Whole Blood Glucose 199 MG/DL (74-106) H 157 MG/DL (74-106) H Lactic Acid Level 2.40 mmol/L (0.4-2.0) H 2.60 mmol/L (0.66-2.22) H Test 10/04/20 04:20 10/04/20 07:46 White Blood Count 12.1 K/UL (4.8-10.8) H Red Blood Count 2.64 M/UL (4.70-6.10) L Hemoglobin 8.2 G/DL (14.2-18.0) L Hematocrit 24.9 % (42.0-52.0) L Mean Corpuscular Volume 94 FL (80-99) Mean Corpuscular Hemoglobin 30.9 PG (27.0-31.0) Mean Corpuscular Hemoglobin Concent 32.8 G/DL (32.0-36.0) Red Cell Distribution Width 17.6 % (11.6-14.8) H Platelet Count 41 K/UL (150-450) L Mean Platelet Volume 9.6 FL (6.5-10.1) Neutrophils (%) (Auto) % (45.0-75.0) Lymphocytes (%) (Auto) % (20.0-45.0) Monocytes (%) (Auto) % (1.0-10.0) Eosinophils (%) (Auto) % (0.0-3.0) Basophils (%) (Auto) % (0.0-2.0) Sodium Level 144 MMOL/L (136-145) Potassium Level 3.2 MMOL/L (3.5-5.1) L Chloride Level 108 MMOL/L (98-107) H Carbon Dioxide Level 20 MMOL/L (21-32) L Anion Gap 16 mmol/L (5-15) H Blood Urea Nitrogen 64 mg/dL (7-18) H Creatinine 7.2 MG/DL (0.55-1.30) H Estimat Glomerular Filtration Rate 9.0 mL/min (>60) Glucose Level 177 MG/DL (74-106) H Lactic Acid Level 2.50 mmol/L (0.4-2.0) H Uric Acid 8.6 MG/DL (2.6-7.2) H Calcium Level 9.1 MG/DL (8.5-10.1) Phosphorus Level 3.9 MG/DL (2.5-4.9) Magnesium Level 2.1 MG/DL (1.8-2.4) Total Bilirubin 0.6 MG/DL (0.2-1.0) Aspartate Amino Transf (AST/SGOT) 33 U/L (15-37) Alanine Aminotransferase (ALT/SGPT) 31 U/L (12-78) Alkaline Phosphatase 99 U/L (46-116) Total Creatine Kinase 12 U/L (26-308) L C-Reactive Protein, Quantitative 1.0 mg/dL (0.00-0.90) H Pro-B-Type Natriuretic Peptide 7122 pg/mL (0-125) H Total Protein 5.2 G/DL (6.4-8.2) L Albumin 2.4 G/DL (3.4-5.0) L Globulin 2.8 g/dL Albumin/Globulin Ratio 0.9 (1.0-2.7) L Random Vancomycin Level 21.7 ug/mL Arterial Blood pH 7.434 (7.350-7.450) Arterial Blood Partial Pressure CO2 27.2 mmHg (35.0-45.0) L Arterial Blood Partial Pressure O2 118.2 mmHg (75.0-100.0) H Arterial Blood HCO3 17.8 mmol/L (22.0-26.0) *L Arterial Blood Oxygen Saturation 98.1 % (95-100) Arterial Blood Base Excess -5.5 (-2-2) L Onesimo Test Positive Plan Problems: (1) Cardiopulmonary arrest (2) Septic shock Assessment & Plan: 75 male leukocytosis lactic acidosis septic shock intubated intensive care unit. Unable to give abdominal exam, exam otherwise benign abdominal unlikely etiology imaging reviewed labs reviewed. Continue ventilator support respiratory in nature seemingly. NG tube IV fluids IV antibiotics will follow with recommendations thank you letter participation's care DAILY ESTIMATED NEEDS: Needs based on Critical care 74.2kg 22-28 kcals/kg [id number] total kcals 1.2-2 g protein/kg 89-148 g total protein 25-30 mL/kg [id number] total fluid mLs NUTRITION DIAGNOSIS: Swallowing difficulty r/t respiratory arrest as evidenced by pt intubated, on pressor support, ICU status. ENTERAL NUTRITION RECOMMENDATIONS: As able NEPRO @40ml/hr x24 hrs to provide 960ml, 1728 kcal, 78g pro, 698ml free H2O -When stable for feeds rec renal formula at this time d/t increasing K and phos. -obtain GI access, initiate Nepro @20ml/hr for 6 hrs, advance as tolerated 10ml/hr 2q4-6 hrs to goal -When tolerating TF at goal, add prosource 1 pack BID to better meet est pro needs. -Flush per HOB over 30 degrees. ----> If hemodynamically unstable, rec trophic feeds of Nepro @10ml/hr to maintain gut integrity. ADDITIONAL RECOMMENDATIONS: 1) F/up w/ H&P 2) Maintain D5 IV hydration while NPO 3) Maintain calibrated bed scale wts 4) Non oral feeds when stable (3) Lactic acidosis (4) Failure to thrive (5) Pancytopenia (6) Respiratory failure (7) Hypoxia (8) Pneumonia (9) Respiratory arrest (10) Hypernatremia (11) Renal failure Oni Walker Oct 04, 2020 11:35
--- NOTE | 2020-10-04 11:52 | Pulmonology Progress Note ---
Subjective ROS Limited/Unobtainable: Yes Interval Events: No change; remains intubated Constitutional: Reports: no symptoms HEENT: Repors: no symptoms Respiratory: Reports: no symptoms Cardiovascular: Reports: no symptoms Gastrointestinal/Abdominal: Reports: no symptoms Genitourinary: Reports: no symptoms Allergies: Coded Allergies: No Known Allergies (Unverified , 09/13/20) Objective Last 24 Hour Vital Signs Date Time Temp Pulse Resp B/P (MAP) Pulse Ox O2 Delivery O2 Flow Rate FiO2 10/04/20 11:00 109/72 10/04/20 11:00 110 17 96/69 (78) 100 10/04/20 11:00 106 18 107/69 (82) 100 10/04/20 10:45 72 20 40 10/04/20 10:05 40 10/04/20 10:00 96/69 10/04/20 10:00 84 16 108/76 (87) 100 10/04/20 10:00 40 10/04/20 09:00 108/76 10/04/20 09:00 108 16 115/72 (86) 100 10/04/20 08:49 74 20 40 10/04/20 08:00 98.6 76 16 110/67 (81) 100 10/04/20 08:00 Mechanical Ventilator 10/04/20 08:00 40 10/04/20 08:00 110/67 10/04/20 08:00 77 10/04/20 07:30 76 18 40 10/04/20 07:00 77 16 111/70 (84) 100 10/04/20 07:00 110/73 10/04/20 06:30 83 22 10/04/20 06:00 110/67 10/04/20 06:00 75 17 109/66 (80) 100 10/04/20 05:11 73 16 40 10/04/20 05:00 109/79 10/04/20 05:00 74 16 105/67 (80) 100 10/04/20 04:00 98.4 82 16 111/70 (84) 100 10/04/20 04:00 40 10/04/20 04:00 102/82 10/04/20 04:00 Mechanical Ventilator 10/04/20 03:29 76 10/04/20 03:13 79 16 40 10/04/20 03:00 114/74 10/04/20 03:00 82 17 108/67 (81) 100 10/04/20 02:30 91 21 95/62 (73) 100 10/04/20 02:00 77 17 101/61 (74) 100 10/04/20 02:00 102/59 10/04/20 01:15 84 19 40 10/04/20 01:00 109/65 10/04/20 01:00 79 19 111/71 (84) 100 10/04/20 00:45 72 18 100/59 (73) 100 10/04/20 00:30 69 18 98/65 (76) 100 10/04/20 00:15 66 17 101/63 (76) 100 10/04/20 00:13 71 18 99/63 (75) 100 10/04/20 00:00 99/63 10/04/20 00:00 Mechanical Ventilator 10/04/20 00:00 98.7 65 18 98/62 (74) 100 10/03/20 23:30 80 18 97/62 (74) 100 10/03/20 23:18 83 10/03/20 23:15 98/62 10/03/20 23:15 77 18 93/60 (71) 100 10/03/20 23:10 84/55 10/03/20 23:10 79 18 84/55 (65) 100 10/03/20 23:08 77 22 40 10/03/20 23:00 105/61 10/03/20 23:00 79 18 92/61 (71) 100 10/03/20 22:00 104/65 10/03/20 22:00 82 19 97/61 (73) 100 10/03/20 21:05 80 22 40 10/03/20 21:00 106/68 10/03/20 21:00 70 18 94/60 (71) 100 10/03/20 20:30 71 18 87/55 (66) 100 10/03/20 20:00 40 10/03/20 20:00 80 10/03/20 20:00 Mechanical Ventilator 10/03/20 20:00 92/59 10/03/20 20:00 98.5 80 17 96/62 (73) 100 10/03/20 19:30 82 19 102/70 (81) 100 10/03/20 19:19 96 20 40 10/03/20 19:00 97/66 10/03/20 19:00 81 18 97/66 (76) 100 10/03/20 18:30 110/72 10/03/20 18:00 109/65 10/03/20 18:00 83 20 109/65 (80) 100 10/03/20 17:51 81 19 40 10/03/20 17:30 81 20 109/68 (82) 100 10/03/20 17:00 113/75 10/03/20 17:00 83 22 109/68 (82) 100 10/03/20 16:30 89 25 134/93 (107) 100 10/03/20 16:00 96.2 78 24 113/70 (84) 95 10/03/20 16:00 113/70 10/03/20 16:00 82 10/03/20 16:00 Mechanical Ventilator 10/03/20 16:00 40 10/03/20 15:40 82 21 40 10/03/20 15:30 73 21 97/58 (71) 100 10/03/20 15:00 109/68 10/03/20 15:00 77 22 109/68 (82) 100 10/03/20 14:30 79 22 107/64 (78) 100 10/03/20 14:00 108/69 10/03/20 14:00 80 22 108/69 (82) 100 10/03/20 13:30 127/90 10/03/20 13:30 79 20 127/90 (102) 100 10/03/20 13:01 75 19 40 10/03/20 13:00 75 19 104/69 (81) 100 10/03/20 13:00 104/69 10/03/20 12:30 64 19 106/64 (78) 100 10/03/20 12:01 97.1 64 19 102/68 (79) 100 10/03/20 12:00 40 10/03/20 12:00 64 19 102/68 (79) 100 10/03/20 12:00 Mechanical Ventilator 10/03/20 12:00 106/68 10/03/20 12:00 64 Intake and Output 10/03/20 10/04/20 19:00 07:00 Intake Total 1279.500 ml 1463.375 ml Output Total 65 ml 110 ml Balance 1214.500 ml 1353.375 ml Free Water 125 ml 60 ml IV Total 884.500 ml 1163.375 ml Tube Feeding 240 ml 240 ml Other 30 ml Output Urine Total 65 ml 110 ml # Bowel Movements 1 3 General Appearance: no acute distress HEENT: normocephalic Respiratory: chest wall non-tender Cardiovascular: normal peripheral pulses Abdomen: normal bowel sounds Laboratory Tests 10/03/20 13:15: POC Whole Blood Glucose 199H 10/03/20 16:10: Lactic Acid Level 2.40H 10/03/20 17:52: POC Whole Blood Glucose 157H 10/03/20 18:50: Lactic Acid Level 2.60H 10/04/20 04:20: White Blood Count 12.1H, Red Blood Count 2.64L, Hemoglobin 8.2L, Hematocrit 24.9L, Mean Corpuscular Volume 94, Mean Corpuscular Hemoglobin 30.9, Mean C orpuscular Hemoglobin Concent 32.8, Red Cell Distribution Width 17.6H, Platelet Count 41L, Mean Platelet Volume 9.6, Neutrophils (%) (Auto) , Lymphocytes (%) (Auto) , Monocytes (%) (Auto) , Eosinophils (%) (Auto) , Basophils (%) (Auto) , Sodium Level 144, Potassium Level 3.2L, Chloride Level 108H, Carbon Dioxide Level 20L, Anion Gap 16H, Blood Urea Nitrogen 64H, Creatinine 7.2H, Estimat Glomerular Filtration Rate 9.0, Glucose Level 177H, Lactic Acid Level 2.50H, Uric Acid 8.6H, Calcium Level 9.1, Phosphorus Level 3.9, Magnesium Level 2.1, Total Bilirubin 0.6, Aspartate Amino Transf (AST/SGOT) 33, Alanine Aminotransferase (ALT/SGPT) 31, Alkaline Phosphatase 99, Total Creatine Kinase 12L, C-Reactive Protein, Quantitative 1.0H, Pro-B-Type Natriuretic Peptide 7122H , Total Protein 5.2L, Albumin 2.4L, Globulin 2.8, Albumin/Globulin Ratio 0.9L, Random Vancomycin Level 21.7 10/04/20 07:46: Arterial Blood pH 7.434, Arterial Blood Partial Pressure CO2 27.2L, Arterial Blood Partial Pressure O2 118.2H, Arterial Blood HCO3 17.8*L, Arterial Blood Oxygen Saturation 98.1, Arterial Blood Base Excess -5.5L, Onesimo Test Positive Current Medications Medications (Trade) Dose Ordered Sig/Alfredo Route PRN Reason Start Time Stop Time Status Last Admin Dose Admin Acetaminophen (Tylenol) 650 mg EVERY 6 HOURS PRN NG Temp >100.5 09/30/20 02:30 10/30/20 02:29 Allopurinol (Zyloprim) 100 mg DAILY NG 10/01/20 12:00 10/31/20 11:59 10/04/20 08:27 Chlorhexidine Gluconate (Babita-Hex 2%) 1 applic DAILY@2000 TOPIC 09/30/20 20:00 12/29/20 19:59 10/03/20 20:39 Dextrose (Dextrose 50%) 25 ml Q30M PRN IV Hypoglycemia 09/30/20 02:30 12/29/20 02:29 Dextrose (Dextrose 50%) 50 ml Q30M PRN IV Hypoglycemia 09/30/20 02:30 12/29/20 02:29 Dextrose/Sodium Chloride 1,000 ml @ 75 mls/hr [id number] IV 09/30/20 03:30 10/30/20 03:29 10/04/20 00:25 Famotidine (Pepcid I.v.) 20 mg DAILY IVP 09/30/20 10:00 10/30/20 09:59 10/04/20 08:26 Hydrocortisone (Solu-CORTEF) 100 mg EVERY 8 HOURS IV 09/30/20 14:00 12/29/20 13:59 10/04/20 05:29 Levetiracetam 100 ml @ 400 mls/hr Q12HR IVPB 10/02/20 09:00 12/31/20 08:59 10/04/20 08:27 Lorazepam (Ativan 2mg/ml 1ml) 1 mg Q4H PRN IV For Seizures 10/01/20 16:00 10/08/20 15:59 10/02/20 10:00 Norepinephrine Bitartrate 8 mg/ Dextrose 250 ml @ 0 mls/hr Q24H IV 10/03/20 12:45 10/06/20 12:44 10/03/20 13:30 Piperacillin Sod/ Tazobactam Sod 3.375 gm/Sodium Chloride 110 ml @ 27.5 mls/hr Q12HR IVPB 09/30/20 09:00 3/4/21 08:59 10/04/20 08:27 Sodium Citrate (Bicitra) 30 ml EVERY 6 HOURS NG 10/01/20 12:00 10/31/20 11:59 10/04/20 05:28 Vancomycin HCl ([facility] pharmacy to dose) 1 ea DAILY PRN MISC Per rx protocol 09/30/20 10:00 10/30/20 09:59 Assessment/Plan Assessment/Plan 1. Respiratory failure. 2. Multiple medical problems consisting of hypertension, thalassemia, chronic pancreatitis, GERD, neuropathy, and depression. 3. Shock; on pressors 4. Acute renal failure and metabolic acidosis 5. Lactic acidemia 6. AMS; CT brain negative DISCUSSION: Now DNR Currently the patient is intubated. Continue AC mode. Wean as tolerated but will not extubate till more awake and off pressors He has been started on fluids. DVT and GI prophylaxis. Broad-spectrum antibiotics. We will follow carefully. Bicarb supplementation ABG adequate The care of this patient was discussed with my supervising physician Time spent for this encounter was approximately 31 minutes Dioni Coats Oct 04, 2020 11:51
--- NOTE | 2020-10-04 12:08 | Nephrology Progress Note ---
Assessment/Plan Problem List: (1) COURTNEY (acute kidney injury) (2) Cardiopulmonary arrest (3) Respiratory failure (4) Septic shock Assessment Acute renal failure Septic shock Acute respiratory failure CODE STATUS now DNR Plan October 04: Status quo. Intubated on ventilator. Labs reviewed. Serum creatinine is plateauing. Trial of Zaroxolyn and 25% albumin infusion given. Abnormal electrolytes addressed. Continue as is. October 03: Continues to be on 6 mics of Levophed. Urine output 350 cc past 24 hours. No urine output since this morning. Labs reviewed. Discussed with KIRBY Diallo. Albumin bolus given. Zaroxolyn 1 dose ordered. Serum creatinine appears to be leveling off. Continue to monitor renal parameters. Patient DNR. October 02: Remains on low-dose pressors today almost anuric. Discussed with Uzma Shook. Labs reviewed. Medication list reviewed. Trial of albumin and Lasix. Continue to monitor renal parameters. Patient DNR. FiO2 40% October 01: Patient clinically more stable. Discussed with KIRBY Tarango. Patient off pressors. ABG improved. Serum creatinine worse. Will start the patient on Bicitra and allopurinol through NG tube. Continue to monitor renal parameters. Per orders. Patient currently DNR. Previously: Pulmonary support Pressors Antibiotics Hydrocortisone Per orders Subjective ROS Limited/Unobtainable: Yes Objective Objective Last 24 Hour Vital Signs Date Time Temp Pulse Resp B/P (MAP) Pulse Ox O2 Delivery O2 Flow Rate FiO2 10/04/20 11:00 109/72 10/04/20 11:00 110 17 96/69 (78) 100 10/04/20 11:00 106 18 107/69 (82) 100 10/04/20 10:45 72 20 40 10/04/20 10:05 40 10/04/20 10:00 96/69 10/04/20 10:00 84 16 108/76 (87) 100 10/04/20 10:00 40 10/04/20 09:00 108/76 10/04/20 09:00 108 16 115/72 (86) 100 10/04/20 08:49 74 20 40 10/04/20 08:00 98.6 76 16 110/67 (81) 100 10/04/20 08:00 Mechanical Ventilator 10/04/20 08:00 40 10/04/20 08:00 110/67 10/04/20 08:00 77 3/1/21 07:30 76 18 40 10/04/20 07:00 77 16 111/70 (84) 100 10/04/20 07:00 110/73 10/04/20 06:30 83 22 10/04/20 06:00 110/67 10/04/20 06:00 75 17 109/66 (80) 100 10/04/20 05:11 73 16 40 10/04/20 05:00 109/79 10/04/20 05:00 74 16 105/67 (80) 100 10/04/20 04:00 98.4 82 16 111/70 (84) 100 10/04/20 04:00 40 10/04/20 04:00 102/82 10/04/20 04:00 Mechanical Ventilator 10/04/20 03:29 76 10/04/20 03:13 79 16 40 10/04/20 03:00 114/74 10/04/20 03:00 82 17 108/67 (81) 100 10/04/20 02:30 91 21 95/62 (73) 100 10/04/20 02:00 77 17 101/61 (74) 100 10/04/20 02:00 102/59 10/04/20 01:15 84 19 40 10/04/20 01:00 109/65 10/04/20 01:00 79 19 111/71 (84) 100 10/04/20 00:45 72 18 100/59 (73) 100 10/04/20 00:30 69 18 98/65 (76) 100 10/04/20 00:15 66 17 101/63 (76) 100 10/04/20 00:13 71 18 99/63 (75) 100 10/04/20 00:00 99/63 10/04/20 00:00 Mechanical Ventilator 10/04/20 00:00 98.7 65 18 98/62 (74) 100 10/03/20 23:30 80 18 97/62 (74) 100 10/03/20 23:18 83 10/03/20 23:15 98/62 10/03/20 23:15 77 18 93/60 (71) 100 10/03/20 23:10 84/55 10/03/20 23:10 79 18 84/55 (65) 100 10/03/20 23:08 77 22 40 10/03/20 23:00 105/61 10/03/20 23:00 79 18 92/61 (71) 100 10/03/20 22:00 104/65 10/03/20 22:00 82 19 97/61 (73) 100 10/03/20 21:05 80 22 40 10/03/20 21:00 106/68 10/03/20 21:00 70 18 94/60 (71) 100 10/03/20 20:30 71 18 87/55 (66) 100 10/03/20 20:00 40 10/03/20 20:00 80 10/03/20 20:00 Mechanical Ventilator 10/03/20 20:00 92/59 10/03/20 20:00 98.5 80 17 96/62 (73) 100 10/03/20 19:30 82 19 102/70 (81) 100 10/03/20 19:19 96 20 40 10/03/20 19:00 97/66 10/03/20 19:00 81 18 97/66 (76) 100 10/03/20 18:30 110/72 10/03/20 18:00 109/65 10/03/20 18:00 83 20 109/65 (80) 100 10/03/20 17:51 81 19 40 10/03/20 17:30 81 20 109/68 (82) 100 10/03/20 17:00 113/75 10/03/20 17:00 83 22 109/68 (82) 100 10/03/20 16:30 89 25 134/93 (107) 100 10/03/20 16:00 96.2 78 24 113/70 (84) 95 10/03/20 16:00 113/70 10/03/20 16:00 82 10/03/20 16:00 Mechanical Ventilator 10/03/20 16:00 40 10/03/20 15:40 82 21 40 10/03/20 15:30 73 21 97/58 (71) 100 10/03/20 15:00 109/68 10/03/20 15:00 77 22 109/68 (82) 100 10/03/20 14:30 79 22 107/64 (78) 100 10/03/20 14:00 108/69 10/03/20 14:00 80 22 108/69 (82) 100 10/03/20 13:30 127/90 10/03/20 13:30 79 20 127/90 (102) 100 10/03/20 13:01 75 19 40 10/03/20 13:00 75 19 104/69 (81) 100 10/03/20 13:00 104/69 10/03/20 12:30 64 19 106/64 (78) 100 Intake and Output 10/03/20 10/04/20 19:00 07:00 Intake Total 1279.500 ml 1463.375 ml Output Total 65 ml 110 ml Balance 1214.500 ml 1353.375 ml Free Water 125 ml 60 ml IV Total 884.500 ml 1163.375 ml Tube Feeding 240 ml 240 ml Other 30 ml Output Urine Total 65 ml 110 ml # Bowel Movements 1 3 Current Medications Medications (Trade) Dose Ordered Sig/Alfredo Route PRN Reason Start Time Stop Time Status Last Admin Dose Admin Acetaminophen (Tylenol) 650 mg EVERY 6 HOURS PRN NG Temp >100.5 09/30/20 02:30 10/30/20 02:29 Albumin Human 100 ml @ 100 mls/hr ONCE ONCE IV 10/04/20 12:15 10/04/20 13:14 UNV Allopurinol (Zyloprim) 100 mg DAILY NG 10/01/20 12:00 10/31/20 11:59 10/04/20 08:27 Chlorhexidine Gluconate (Babita-Hex 2%) 1 applic DAILY@2000 TOPIC 09/30/20 20:00 12/29/20 19:59 10/03/20 20:39 Dextrose (Dextrose 50%) 25 ml Q30M PRN IV Hypoglycemia 09/30/20 02:30 12/29/20 02:29 Dextrose (Dextrose 50%) 50 ml Q30M PRN IV Hypoglycemia 09/30/20 02:30 12/29/20 02:29 Dextrose/Sodium Chloride 1,000 ml @ 75 mls/hr [id number] IV 09/30/20 03:30 10/30/20 03:29 10/04/20 00:25 Famotidine (Pepcid I.v.) 20 mg DAILY IVP 09/30/20 10:00 10/30/20 09:59 10/04/20 08:26 Hydrocortisone (Solu-CORTEF) 100 mg EVERY 8 HOURS IV 09/30/20 14:00 12/29/20 13:59 10/04/20 05:29 Levetiracetam 100 ml @ 400 mls/hr Q12HR IVPB 10/02/20 09:00 12/31/20 08:59 10/04/20 08:27 Lorazepam (Ativan 2mg/ml 1ml) 1 mg Q4H PRN IV For Seizures 10/01/20 16:00 10/08/20 15:59 10/02/20 10:00 Metolazone (Zaroxolyn) 10 mg ONCE ONCE NG 10/04/20 12:15 10/04/20 12:16 UNV Norepinephrine Bitartrate 8 mg/ Dextrose 250 ml @ 0 mls/hr Q24H IV 10/03/20 12:45 10/06/20 12:44 10/03/20 13:30 Piperacillin Sod/ Tazobactam Sod 3.375 gm/Sodium Chloride 110 ml @ 27.5 mls/hr Q12HR IVPB 09/30/20 09:00 10/07/20 08:59 10/04/20 08:27 Sodium Citrate (Bicitra) 30 ml EVERY 6 HOURS NG 10/01/20 12:00 10/31/20 11:59 10/04/20 05:28 Vancomycin HCl ([facility] pharmacy to dose) 1 ea DAILY PRN MISC Per rx protocol 09/30/20 10:00 10/30/20 09:59 Laboratory Tests 10/03/20 13:15: POC Whole Blood Glucose 199H 10/03/20 16:10: Lactic Acid Level 2.40H 10/03/20 17:52: POC Whole Blood Glucose 157H 10/03/20 18:50: Lactic Acid Level 2.60H 10/04/20 04:20: White Blood Count 12.1H, Red Blood Count 2.64L, Hemoglobin 8.2L, Hematocrit 24.9L, Mean Corpuscular Volume 94, Mean Corpuscular Hemoglobin 30.9, Mean Corpuscular Hemoglobin Concent 32.8, Red Cell Distribution Width 17.6H, Platelet Count 41L, Mean Platelet Volume 9.6, Neutrophils (%) (Auto) , Lymphocytes (%) (Auto) , Monocytes (%) (Auto) , Eosinophils (%) (Auto) , Basophils (%) (Auto) , Sodium Level 144, Potassium Level 3.2L, Chloride Level 108H, Carbon Dioxide Level 20L, Anion Gap 16H, Blood Urea Nitrogen 64H, Creatinine 7.2H, Estimat Glomerular Filtration Rate 9.0, Glucose Level 177H, Lactic Acid Level 2.50H, Uric Acid 8.6H, Calcium Level 9.1, Phosphorus Level 3.9, Magnesium Level 2.1, Total Bilirubin 0.6, Aspartate Amino Transf (AST/SGOT) 33, Alanine Aminotransferase (ALT/SGPT) 31, Alkaline Phosphatase 99, Total Creatine Kinase 12L, C-Reactive Protein, Quantitative 1.0H, Pro-B-Type Natriuretic Peptide 7122H , Total Protein 5.2L, Albumin 2.4L, Globulin 2.8, Albumin/Globulin Ratio 0.9L, Random Vancomycin Level 21.7 10/04/20 07:46: Arterial Blood pH 7.434, Arterial Blood Partial Pressure CO2 27.2L, Arterial Blood Partial Pressure O2 118.2H, Arterial Blood HCO3 17.8*L, Arterial Blood Oxygen Saturation 98.1, Arterial Blood Base Excess -5.5L, Onesimo Test Positive Height (Feet): 6 Height (Inches): 8.00 Weight (Pounds): 165 General Appearance: no apparent distress EENT: other - Intubated on ventilator Cardiovascular: tachycardia Respiratory/Chest: decreased breath sounds Abdomen: distended Angel Whitehead MD Oct 04, 2020 12:08
--- NOTE | 2020-10-04 12:13 | Neurology Progress Note ---
Interim History Interim History ROS Limited/Unobtainable: Yes Objective Physical Exam Last Vital Signs Date Time Temp Pulse Resp B/P (MAP) Pulse Ox O2 Delivery O2 Flow Rate FiO2 10/04/20 11:00 109/72 10/04/20 11:00 110 17 100 10/04/20 10:45 40 10/04/20 08:00 98.6 10/04/20 08:00 Mechanical Ventilator 10/01/20 04:00 100.0 Laboratory Tests Test 10/03/20 13:15 10/03/20 16:10 10/03/20 17:52 10/03/20 18:50 POC Whole Blood Glucose 199 MG/DL (74-106) H 157 MG/DL (74-106) H Lactic Acid Level 2.40 mmol/L (0.4-2.0) H 2.60 mmol/L (0.66-2.22) H Test 10/04/20 04:20 10/04/20 07:46 10/04/20 12:08 White Blood Count 12.1 K/UL (4.8-10.8) H Red Blood Count 2.64 M/UL (4.70-6.10) L Hemoglobin 8.2 G/DL (14.2-18.0) L Hematocrit 24.9 % (42.0-52.0) L Mean Corpuscular Volume 94 FL (80-99) Mean Corpuscular Hemoglobin 30.9 PG (27.0-31.0) Mean Corpuscular Hemoglobin Concent 32.8 G/DL (32.0-36.0) Red Cell Distribution Width 17.6 % (11.6-14.8) H Platelet Count 41 K/UL (150-450) L Mean Platelet Volume 9.6 FL (6.5-10.1) Neutrophils (%) (Auto) % (45.0-75.0) Lymphocytes (%) (Auto) % (20.0-45.0) Monocytes (%) (Auto) % (1.0-10.0) Eosinophils (%) (Auto) % (0.0-3.0) Basophils (%) (Auto) % (0.0-2.0) Sodium Level 144 MMOL/L (136-145) Potassium Level 3.2 MMOL/L (3.5-5.1) L Chloride Level 108 MMOL/L (98-107) H Carbon Dioxide Level 20 MMOL/L (21-32) L Anion Gap 16 mmol/L (5-15) H Blood Urea Nitrogen 64 mg/dL (7-18) H Creatinine 7.2 MG/DL (0.55-1.30) H Estimat Glomerular Filtration Rate 9.0 mL/min (>60) Glucose Level 177 MG/DL (74-106) H Lactic Acid Level 2.50 mmol/L (0.4-2.0) H Uric Acid 8.6 MG/DL (2.6-7.2) H Calcium Level 9.1 MG/DL (8.5-10.1) Phosphorus Level 3.9 MG/DL (2.5-4.9) Magnesium Level 2.1 MG/DL (1.8-2.4) Total Bilirubin 0.6 MG/DL (0.2-1.0) Aspartate Amino Transf (AST/SGOT) 33 U/L (15-37) Alanine Aminotransferase (ALT/SGPT) 31 U/L (12-78) Alkaline Phosphatase 99 U/L (46-116) Total Creatine Kinase 12 U/L (26-308) L C-Reactive Protein, Quantitative 1.0 mg/dL (0.00-0.90) H Pro-B-Type Natriuretic Peptide 7122 pg/mL (0-125) H Total Protein 5.2 G/DL (6.4-8.2) L Albumin 2.4 G/DL (3.4-5.0) L Globulin 2.8 g/dL Albumin/Globulin Ratio 0.9 (1.0-2.7) L Random Vancomycin Level 21.7 ug/mL Arterial Blood pH 7.434 (7.350-7.450) Arterial Blood Partial Pressure CO2 27.2 mmHg (35.0-45.0) L Arterial Blood Partial Pressure O2 118.2 mmHg (75.0-100.0) H Arterial Blood HCO3 17.8 mmol/L (22.0-26.0) *L Arterial Blood Oxygen Saturation 98.1 % (95-100) Arterial Blood Base Excess -5.5 (-2-2) L Onesimo Test Positive POC Whole Blood Glucose 166 MG/DL (74-106) H Neurologic Exam Objective Physical Exam: Limited due to patients status unresponsive comatose, Pupils are sluggish, pupils equal reactive to light corneal reflex absent, gag reflex absent facial symmetric motor: no spontaneous movement in extremities, sensory response does not withdraw to pain Impression/Recommendations Status: unchanged Diagnostic Impression Imaging: EEG reviewed CT Head: No evidence of acute intracranial hemorrhage, mass effect or cortical edema. MRI recommended for more sensitive evaluation as clinically indicated. Atrophy and nonspecific periventricular hypoattenuation suggestive of chronic ischemic microvascular changes. Assessment And Rec's 1. Anoxic Encephalopathy --> EEG revealed short waves consistent with seizure activity --> S/p recent CODE Blue and intubation --> CT head reviewed as above 2. Abnormal EEG --> Possible subclinical seizure activity, it is not definitive --> Will start patient on presumptive seizure medication, Agree to continue with Keppra 500mg IV BID 3. Acute hypoxemic respiratory failure --> s/p intubation on vent 4. Questionable Pneumonia vs other ---> on abx Covid Ag is NEGATIVE, PCR sent and pending. PUI status 5. Anemia 6. FTT --> Supportive care Thank you for allowing us to participate in patient's care, plan of care was discussed with Dr. Jose Armando Camarena who agrees and has reviewed EEG results. Stacy Hinds NP Oct 04, 2020 12:13
[2020-10-04] MEDS ORDERED: Allopurinol 100mg Tab NG SCH (12:14)
--- NOTE | 2020-10-04 12:49 | Surgery Progress Note ---
Surgery Progress Note Subjective Additional Comments ill appearing on support no n/v labs Objective Last 24 Hour Vital Signs Date Time Temp Pulse Resp B/P (MAP) Pulse Ox O2 Delivery O2 Flow Rate FiO2 10/04/20 11:00 109/72 10/04/20 11:00 110 17 96/69 (78) 100 10/04/20 11:00 106 18 107/69 (82) 100 10/04/20 10:45 72 20 40 10/04/20 10:05 40 10/04/20 10:00 96/69 10/04/20 10:00 84 16 108/76 (87) 100 10/04/20 10:00 40 10/04/20 09:00 108/76 10/04/20 09:00 108 16 115/72 (86) 100 10/04/20 08:49 74 20 40 10/04/20 08:00 98.6 76 16 110/67 (81) 100 10/04/20 08:00 Mechanical Ventilator 10/04/20 08:00 40 10/04/20 08:00 110/67 10/04/20 08:00 77 10/04/20 07:30 76 18 40 10/04/20 07:00 77 16 111/70 (84) 100 10/04/20 07:00 110/73 10/04/20 06:30 83 22 10/04/20 06:00 110/67 10/04/20 06:00 75 17 109/66 (80) 100 10/04/20 05:11 73 16 40 10/04/20 05:00 109/79 10/04/20 05:00 74 16 105/67 (80) 100 10/04/20 04:00 98.4 82 16 111/70 (84) 100 10/04/20 04:00 40 10/04/20 04:00 102/82 10/04/20 04:00 Mechanical Ventilator 10/04/20 03:29 76 10/04/20 03:13 79 16 40 10/04/20 03:00 114/74 10/04/20 03:00 82 17 108/67 (81) 100 10/04/20 02:30 91 21 95/62 (73) 100 10/04/20 02:00 77 17 101/61 (74) 100 10/04/20 02:00 102/59 10/04/20 01:15 84 19 40 10/04/20 01:00 109/65 10/04/20 01:00 79 19 111/71 (84) 100 10/04/20 00:45 72 18 100/59 (73) 100 10/04/20 00:30 69 18 98/65 (76) 100 10/04/20 00:15 66 17 101/63 (76) 100 10/04/20 00:13 71 18 99/63 (75) 100 10/04/20 00:00 99/63 10/04/20 00:00 Mechanical Ventilator 10/04/20 00:00 98.7 65 18 98/62 (74) 100 10/03/20 23:30 80 18 97/62 (74) 100 10/03/20 23:18 83 10/03/20 23:15 98/62 10/03/20 23:15 77 18 93/60 (71) 100 10/03/20 23:10 84/55 10/03/20 23:10 79 18 84/55 (65) 100 10/03/20 23:08 77 22 40 10/03/20 23:00 105/61 10/03/20 23:00 79 18 92/61 (71) 100 10/03/20 22:00 104/65 10/03/20 22:00 82 19 97/61 (73) 100 10/03/20 21:05 80 22 40 10/03/20 21:00 106/68 10/03/20 21:00 70 18 94/60 (71) 100 10/03/20 20:30 71 18 87/55 (66) 100 10/03/20 20:00 40 10/03/20 20:00 80 10/03/20 20:00 Mechanical Ventilator 10/03/20 20:00 92/59 10/03/20 20:00 98.5 80 17 96/62 (73) 100 10/03/20 19:30 82 19 102/70 (81) 100 10/03/20 19:19 96 20 40 10/03/20 19:00 97/66 10/03/20 19:00 81 18 97/66 (76) 100 10/03/20 18:30 110/72 10/03/20 18:00 109/65 10/03/20 18:00 83 20 109/65 (80) 100 10/03/20 17:51 81 19 40 10/03/20 17:30 81 20 109/68 (82) 100 10/03/20 17:00 113/75 10/03/20 17:00 83 22 109/68 (82) 100 10/03/20 16:30 89 25 134/93 (107) 100 10/03/20 16:00 96.2 78 24 113/70 (84) 95 10/03/20 16:00 113/70 10/03/20 16:00 82 10/03/20 16:00 Mechanical Ventilator 10/03/20 16:00 40 10/03/20 15:40 82 21 40 10/03/20 15:30 73 21 97/58 (71) 100 10/03/20 15:00 109/68 10/03/20 15:00 77 22 109/68 (82) 100 10/03/20 14:30 79 22 107/64 (78) 100 10/03/20 14:00 108/69 10/03/20 14:00 80 22 108/69 (82) 100 10/03/20 13:30 127/90 10/03/20 13:30 79 20 127/90 (102) 100 10/03/20 13:01 75 19 40 10/03/20 13:00 75 19 104/69 (81) 100 10/03/20 13:00 104/69 I&O Intake and Output 10/03/20 10/04/20 19:00 07:00 Intake Total 1279.500 ml 1463.375 ml Output Total 65 ml 110 ml Balance 1214.500 ml 1353.375 ml Free Water 125 ml 60 ml IV Total 884.500 ml 1163.375 ml Tube Feeding 240 ml 240 ml Other 30 ml Output Urine Total 65 ml 110 ml # Bowel Movements 1 3 Dressing: saturated Cardiovascular: RSR Respiratory: decreased breath sounds Abdomen: soft, non-tender, present bowel sounds Extremities: no cyanosis Laboratory Tests Test 10/03/20 13:15 10/03/20 16:10 10/03/20 17:52 10/03/20 18:50 POC Whole Blood Glucose 199 MG/DL (74-106) H 157 MG/DL (74-106) H Lactic Acid Level 2.40 mmol/L (0.4-2.0) H 2.60 mmol/L (0.66-2.22) H Test 10/04/20 04:20 10/04/20 07:46 10/04/20 12:08 White Blood Count 12.1 K/UL (4.8-10.8) H Red Blood Count 2.64 M/UL (4.70-6.10) L Hemoglobin 8.2 G/DL (14.2-18.0) L Hematocrit 24.9 % (42.0-52.0) L Mean Corpuscular Volume 94 FL (80-99) Mean Corpuscular Hemoglobin 30.9 PG (27.0-31.0) Mean Corpuscular Hemoglobin Concent 32.8 G/DL (32.0-36.0) Red Cell Distribution Width 17.6 % (11.6-14.8) H Platelet Count 41 K/UL (150-450) L Mean Platelet Volume 9.6 FL (6.5-10.1) Neutrophils (%) (Auto) % (45.0-75.0) Lymphocytes (%) (Auto) % (20.0-45.0) Monocytes (%) (Auto) % (1.0-10.0) Eosinophils (%) (Auto) % (0.0-3.0) Basophils (%) (Auto) % (0.0-2.0) Sodium Level 144 MMOL/L (136-145) Potassium Level 3.2 MMOL/L (3.5-5.1) L Chloride Level 108 MMOL/L (98-107) H Carbon Dioxide Level 20 MMOL/L (21-32) L Anion Gap 16 mmol/L (5-15) H Blood Urea Nitrogen 64 mg/dL (7-18) H Creatinine 7.2 MG/DL (0.55-1.30) H Estimat Glomerular Filtration Rate 9.0 mL/min (>60) Glucose Level 177 MG/DL (74-106) H Lactic Acid Level 2.50 mmol/L (0.4-2.0) H Uric Acid 8.6 MG/DL (2.6-7.2) H Calcium Level 9.1 MG/DL (8.5-10.1) Phosphorus Level 3.9 MG/DL (2.5-4.9) Magnesium Level 2.1 MG/DL (1.8-2.4) Total Bilirubin 0.6 MG/DL (0.2-1.0) Aspartate Amino Transf (AST/SGOT) 33 U/L (15-37) Alanine Aminotransferase (ALT/SGPT) 31 U/L (12-78) Alkaline Phosphatase 99 U/L (46-116) Total Creatine Kinase 12 U/L (26-308) L C-Reactive Protein, Quantitative 1.0 mg/dL (0.00-0.90) H Pro-B-Type Natriuretic Peptide 7122 pg/mL (0-125) H Total Protein 5.2 G/DL (6.4-8.2) L Albumin 2.4 G/DL (3.4-5.0) L Globulin 2.8 g/dL Albumin/Globulin Ratio 0.9 (1.0-2.7) L Random Vancomycin Level 21.7 ug/mL Arterial Blood pH 7.434 (7.350-7.450) Arterial Blood Partial Pressure CO2 27.2 mmHg (35.0-45.0) L Arterial Blood Partial Pressure O2 118.2 mmHg (75.0-100.0) H Arterial Blood HCO3 17.8 mmol/L (22.0-26.0) *L Arterial Blood Oxygen Saturation 98.1 % (95-100) Arterial Blood Base Excess -5.5 (-2-2) L Onesimo Test Positive POC Whole Blood Glucose 166 MG/DL (74-106) H Plan Problems: (1) Cardiopulmonary arrest (2) Septic shock Assessment & Plan: 75 male leukocytosis lactic acidosis septic shock intubated intensive care unit. Unable to give abdominal exam, exam otherwise benign abdominal unlikely etiology imaging reviewed labs reviewed. Continue ventilator support respiratory in nature seemingly. NG tube IV fluids IV antibiotics will follow with recommendations thank you letter participation's care DAILY ESTIMATED NEEDS: Needs based on Critical care 74.2kg 22-28 kcals/kg 2149-0529 total kcals 1.2-2 g protein/kg 89-148 g total protein 25-30 mL/kg 2568-8339 total fluid mLs NUTRITION DIAGNOSIS: Swallowing difficulty r/t respiratory arrest as evidenced by pt intubated, on pressor support, ICU status. ENTERAL NUTRITION RECOMMENDATIONS: As able NEPRO @40ml/hr x24 hrs to provide 960ml, 1728 kcal, 78g pro, 698ml free H2O -When stable for feeds rec renal formula at this time d/t increasing K and phos. -obtain GI access, initiate Nepro @20ml/hr for 6 hrs, advance as tolerated 10ml/hr 2q4-6 hrs to goal -When tolerating TF at goal, add prosource 1 pack BID to better meet est pro needs. -Flush per HOB over 30 degrees. ----> If hemodynamically unstable, rec trophic feeds of Nepro @10ml/hr to maintain gut integrity. ADDITIONAL RECOMMENDATIONS: 1) F/up w/ H&P 2) Maintain D5 IV hydration while NPO 3) Maintain calibrated bed scale wts 4) Non oral feeds when stable (3) Lactic acidosis (4) Failure to thrive (5) Pancytopenia (6) Respiratory failure (7) Hypoxia (8) Pneumonia (9) Respiratory arrest (10) Hypernatremia (11) Renal failure Oni Walker Oct 04, 2020 12:49
[2020-10-04] MEDS ORDERED: D5 1/2NS 1000ml IV ONE (13:43)
[2020-10-04] MEDS ORDERED: Tubing IV Secondary IV ONE (13:43)
[2020-10-04] MEDS ORDERED: NS 275ml ONE (13:43)
--- NOTE | 2020-10-04 13:57 | NUR ---
NURSE NOTES: Per Radiology, pending result of KUB at this time, will continue to follow up.
--- NOTE | 2020-10-04 16:14 | Diagnostic Imaging Report ---
Indication: Cough Technique: One view of the chest Comparison: September 30, 2020 Findings: There is improved aeration of both lungs, with decreased atelectasis in particular the right lung base. Stable tube and line positions. Impression: Improved aeration of the right lung base
--- NOTE | 2020-10-04 16:21 | Diagnostic Imaging Report ---
Indication: Post nasogastric tube placement Technique: Supine view of the abdomen Comparison: 10/03/2020 Findings: Again demonstrated is a nasogastric tube, tip which projects at the level gastric body. The bowel gas pattern is unremarkable. Also noted at the included lung bases is some atelectasis, as well as a right jugular central venous catheter. Impression: Satisfactory nasogastric tube position. No significant change from previous day's exam
--- NOTE | 2020-10-04 19:22 | NUR ---
NURSE HAND-OFF REPORT: Latest Vital Signs: Temperature 98.5 , Pulse 77 , B/P 105 /64 , Respiratory Rate 16 , O2 SAT 100 , Mechanical Ventilator, O2 Flow Rate 100.0 . Vital Sign Comment: stable EKG Rhythm: Sinus Rhythm Rhythm change?: N MD Notified?: - MD Response: Latest Carty Fall Score: 50 Fall Risk: High Risk Safety Measures: Call light Within Reach, Bed Alarm Zone 1, Side Rails Side Rails x3, Bed position Low and Locked. Fall Precautions: Yellow Socks Door Sign Patient Fall Education Report given to KIRBY Rodriguez.
--- NOTE | 2020-10-04 19:37 | Internal Med Progress Note ---
Subjective Date of Service: Oct 04, 2020 Physician Name Semaj Kay Attending Physician Ken Hutton MD Current Medications Medications (Trade) Dose Ordered Sig/Alfredo Route PRN Reason Start Time Stop Time Status Last Admin Dose Admin Acetaminophen (Tylenol) 650 mg EVERY 6 HOURS PRN NG Temp >100.5 09/30/20 02:30 10/30/20 02:29 Allopurinol (Zyloprim) 300 mg DAILY NG 10/05/20 09:00 11/04/20 08:59 Chlorhexidine Gluconate (Babita-Hex 2%) 1 applic DAILY@2000 TOPIC 09/30/20 20:00 12/29/20 19:59 10/03/20 20:39 Dextrose (Dextrose 50%) 25 ml Q30M PRN IV Hypoglycemia 09/30/20 02:30 12/29/20 02:29 Dextrose (Dextrose 50%) 50 ml Q30M PRN IV Hypoglycemia 09/30/20 02:30 12/29/20 02:29 Dextrose/Sodium Chloride 1,000 ml @ 75 mls/hr [id number] IV 09/30/20 03:30 10/30/20 03:29 10/04/20 14:07 Famotidine (Pepcid I.v.) 20 mg DAILY IVP 09/30/20 10:00 10/30/20 09:59 10/04/20 08:26 Hydrocortisone (Solu-CORTEF) 100 mg EVERY 8 HOURS IV 09/30/20 14:00 12/29/20 13:59 10/04/20 13:02 Levetiracetam 100 ml @ 400 mls/hr Q12HR IVPB 10/02/20 09:00 12/31/20 08:59 10/04/20 08:27 Lorazepam (Ativan 2mg/ml 1ml) 1 mg Q4H PRN IV For Seizures 10/01/20 16:00 10/08/20 15:59 10/02/20 10:00 Norepinephrine Bitartrate 8 mg/ Dextrose 250 ml @ 0 mls/hr Q24H IV 10/03/20 12:45 10/06/20 12:44 10/03/20 13:30 Piperacillin Sod/ Tazobactam Sod 3.375 gm/Sodium Chloride 110 ml @ 27.5 mls/hr Q12HR IVPB 09/30/20 09:00 10/07/20 08:59 10/04/20 08:27 Sodium Citrate (Bicitra) 30 ml EVERY 6 HOURS NG 10/01/20 12:00 10/31/20 11:59 10/04/20 17:42 [facility] 1 ea DAILY PRN MISC Per rx protocol 09/30/20 10:00 10/30/20 09:59 Allergies: Coded Allergies: No Known Allergies (Unverified , 09/13/20) ROS Limited/Unobtainable: Yes Subjective 75 YO M with recent diagnosis of thalassemia admitted with altered mental status. S/P cardiopulmonary arrest 09/29/20. Intubated and sedated. ICU. Cover for Int Sudeep-Dr Hutton Objective Last Vital Signs Date Time Temp Pulse Resp B/P (MAP) Pulse Ox O2 Delivery O2 Flow Rate FiO2 10/04/20 19:10 77 16 40 10/04/20 19:00 115/80 10/04/20 19:00 100 10/04/20 17:00 98.5 10/04/20 16:00 Mechanical Ventilator 10/01/20 04:00 100.0 Laboratory Tests Test 10/04/20 04:20 10/04/20 07:46 10/04/20 12:08 10/04/20 12:55 White Blood Count 12.1 K/UL (4.8-10.8) H Red Blood Count 2.64 M/UL (4.70-6.10) L Hemoglobin 8.2 G/DL (14.2-18.0) L Hematocrit 24.9 % (42.0-52.0) L Mean Corpuscular Volume 94 FL (80-99) Mean Corpuscular Hemoglobin 30.9 PG (27.0-31.0) Mean Corpuscular Hemoglobin Concent 32.8 G/DL (32.0-36.0) Red Cell Distribution Width 17.6 % (11.6-14.8) H Platelet Count 41 K/UL (150-450) L Mean Platelet Volume 9.6 FL (6.5-10.1) Neutrophils (%) (Auto) % (45.0-75.0) Lymphocytes (%) (Auto) % (20.0-45.0) Monocytes (%) (Auto) % (1.0-10.0) Eosinophils (%) (Auto) % (0.0-3.0) Basophils (%) (Auto) % (0.0-2.0) Sodium Level 144 MMOL/L (136-145) Potassium Level 3.2 MMOL/L (3.5-5.1) L Chloride Level 108 MMOL/L (98-107) H Carbon Dioxide Level 20 MMOL/L (21-32) L Anion Gap 16 mmol/L (5-15) H Blood Urea Nitrogen 64 mg/dL (7-18) H Creatinine 7.2 MG/DL (0.55-1.30) H Estimat Glomerular Filtration Rate 9.0 mL/min (>60) Glucose Level 177 MG/DL (74-106) H Lactic Acid Level 2.50 mmol/L (0.4-2.0) H 2.50 mmol/L (0.4-2.0) H Uric Acid 8.6 MG/DL (2.6-7.2) H Calcium Level 9.1 MG/DL (8.5-10.1) Phosphorus Level 3.9 MG/DL (2.5-4.9) Magnesium Level 2.1 MG/DL (1.8-2.4) Total Bilirubin 0.6 MG/DL (0.2-1.0) Aspartate Amino Transf (AST/SGOT) 33 U/L (15-37) Alanine Aminotransferase (ALT/SGPT) 31 U/L (12-78) Alkaline Phosphatase 99 U/L (46-116) Total Creatine Kinase 12 U/L (26-308) L C-Reactive Protein, Quantitative 1.0 mg/dL (0.00-0.90) H Pro-B-Type Natriuretic Peptide 7122 pg/mL (0-125) H Total Protein 5.2 G/DL (6.4-8.2) L Albumin 2.4 G/DL (3.4-5.0) L Globulin 2.8 g/dL Albumin/Globulin Ratio 0.9 (1.0-2.7) L Random Vancomycin Level 21.7 ug/mL Arterial Blood pH 7.434 (7.350-7.450) Arterial Blood Partial Pressure CO2 27.2 mmHg (35.0-45.0) L Arterial Blood Partial Pressure O2 118.2 mmHg (75.0-100.0) H Arterial Blood HCO3 17.8 mmol/L (22.0-26.0) *L Arterial Blood Oxygen Saturation 98.1 % (95-100) Arterial Blood Base Excess -5.5 (-2-2) L Onesimo Test Positive POC Whole Blood Glucose 166 MG/DL (74-106) H Intake and Output 10/03/20 10/04/20 19:00 07:00 Intake Total 1279.500 ml 1463.375 ml Output Total 65 ml 110 ml Balance 1214.500 ml 1353.375 ml Free Water 125 ml 60 ml IV Total 884.500 ml 1163.375 ml Tube Feeding 240 ml 240 ml Other 30 ml Output Urine Total 65 ml 110 ml # Bowel Movements 1 3 Objective Physical Exam General Appearance: lethargic Lines, tubes and drains: central line - R IJ HEENT: normocephalic, atraumatic, other - Pupils are 2 mm and sluggish reaction to light. Neck: non-tender Respiratory/Chest: lungs clear Cardiovascular/Chest: normal rate Abdomen: no mass, hypoactive bowel sounds Extremities: non-pitting Neurologic: unresponsiveness Assessment/Plan Assessment/Plan Assessment/Plan Status: unchanged Assessment/Plan: 75 y/o Male admitted to the Hospital with; # AMS # Acute encephalopathy # Acute hypoxemic respiratory failure # Respiratory acidosis. ABG monitoring. Intubation in the ER Pulmonary/ICU wtih Dr. Benavidez Renal consultation with Dr. Estrada. Add CT head wo contrast to rule out bleed vs other completing today. On route. EEG ordered today as no prior order found. Concern for anoxic brain injury. Seizure disorder # Pneumonia vs other ID consultation with Dr. Jamarcus Rick and Vancomycin Follow up lactate and wbc, cultures Covid Ag is NEGATIVE, PCR sent and pending. PUI status # Thalassemia Recent BM biopsy which was negative per family report. [place] MR number is [id number] ( MR [place] with [facility] Supportive care Consider Hematology follow up as needed Continue maged per neurology=Dr Carranza # FTT - anorexia and weight loss Supportive care RD consult in the next 2 days for nutrition DNR DVT ppx GI ppx R IJ line Semaj Kay MD Oct 04, 2020 19:37
[2020-10-04] MEDS: Dyna-Hex 2% Top Sol 2oz TOPIC SCH (20:28)
[2020-10-05] VITALS (38 sets, daily range): BP systolic 86–125; BP diastolic 54–79
[2020-10-05] MEDS: Sodium Citrate 30ml NG SCH ×5 (00:57→23:48)
[2020-10-05] MEDS: D5 1/2NS 1,000 ML IV SCH ×3 (02:00→17:02)
[2020-10-05 05:29] LABS: HEMATOCRIT 25.5 % (42.0-52.0); HEMOGLOBIN 8.6 G/DL (14.2-18.0); MEAN CORPUSCULAR VOLUME 93 FL (80-99); PLATELET COUNT 41 K/UL (150-450); RED BLOOD COUNT 2.73 M/UL (4.70-6.10); RED CELL DISTRIBUTION WIDTH 17.6 % (11.6-14.8); WHITE BLOOD COUNT 15.8 K/UL (4.8-10.8)
[2020-10-05 06:07] LABS: ALBUMIN 2.7 G/DL (3.4-5.0); BILIRUBIN,TOTAL 0.7 MG/DL (0.2-1.0); CALCIUM 9.3 MG/DL (8.5-10.1); CREATININE 7.5 MG/DL (0.55-1.30); PHOSPHORUS 3.8 MG/DL (2.5-4.9); POTASSIUM 2.9 MMOL/L (3.5-5.1)
--- NOTE | 2020-10-05 07:20 | NUR ---
RESPIRATORY NOTE: Received pt mechanically ventilated on AC/VC 16, 500, +5, 40% FiO2. Pt is intubated with a 7.5 ETT secured with an anchorfast 24cm at the lipline. SpO2 100% on current settings. Bilateral B/S are rhonchi and diminished at the bases with equal chest rise. SXN small amounts of clear/ white secretions endotracheally. Pt is obtunded. Vent is plugged into red outlet. Alarms are on and audible. No s/s of respiratory distress at this time. Will continue to closely monitor.
--- NOTE | 2020-10-05 07:34 | NUR ---
NURSE NOTES: Received report from Jennifer ORR.
[2020-10-05] MEDS: Hydrocortisone 100mg Inj IV SCH ×3 (07:46→22:06)
--- NOTE | 2020-10-05 08:10 | NUR ---
NURSE NOTES: Pt. in bed no s/sx of distress. Response to light pain. ETT in placed with vent setting AC16/VT500/Fi O2 of 40%/P5. No grimacing noted. HOB elevated at all times. NGT at right nares in placed. On Nepro at 20cc/hr. F/C in placed for I&O with only minimal output. Right IJ TLC in placed patent/intact. Bed in low position, locked. Call light within reach. Will cont. to monitor.
--- NOTE | 2020-10-05 08:29 | Infectious Diseases Prog Note ---
Assessment/Plan 75 yo male with PMHx of failure to thrive, HTN, thalassemia, pancytopenia, HLD, Depression who was sent to the ED from his correction for AMS. Septic Shock PNA Acute hypoxic resp failure sp VDRF -10/01 sp cx S. aureus (sensi p), K. pna (r amp; otherwise S) -09/30 COVID PCr neg -09/30 CXR: Bibasilar atelectasis versus infiltrates CXR 09/29/20 - Left basilar atelectasis. No acute process otherwise. Evidence of old granulomatous disease rapid covid ag neg S. epi bacteremia- contaminant vs real -10/03 Bcx p -09/29 BCx / sets S. epi Leukocytosis; increaed No fever -09/30 ucx neg AMS -CT head: New NG tube and mid to distal esophagus. Recommend advancement. Bibasilar atelectasis versus infiltrates Lactic acidosis Failure to thrive HTN Thalassemia Pancytopenia HLD Depression Adenomatous colonic polyps PLAN - Continue Zosyn #5/7 10/03/20 SP Vancomycin #3 - f/u COVID 19 Ag screen - f/u Cultures - Monitor CBC and Temps -BCx (periheral and line) 2d echo Thank you for this consult. [facility] will continue to follow Mr. Vargas while he in hospitalized. Subjective Allergies: Coded Allergies: No Known Allergies (Unverified , 09/13/20) Afebrile WBCs 15 JONES Objective Last 24 Hour Vital Signs Date Time Temp Pulse Resp B/P (MAP) Pulse Ox O2 Delivery O2 Flow Rate FiO2 10/05/20 07:30 66 16 86/54 (65) 100 10/05/20 07:00 67 16 86/55 (65) 100 10/05/20 06:30 83 16 10/05/20 06:30 80 16 116/79 (91) 100 10/05/20 06:00 92/58 (69) 10/05/20 05:30 71 17 121/67 (85) 100 10/05/20 05:00 58 16 106/67 (80) 100 10/05/20 04:00 71 16 110/71 (84) 100 10/05/20 04:00 63 10/05/20 04:00 40 10/05/20 04:00 Mechanical Ventilator 10/05/20 03:30 72 16 91/61 (71) 100 10/05/20 03:07 69 17 100 Mechanical Ventilator 40 10/05/20 03:07 71 17 40 10/05/20 03:00 62 16 103/61 (75) 100 10/05/20 02:30 68 16 115/71 (86) 100 10/05/20 02:00 66 16 112/71 (85) 100 10/05/20 01:30 68 16 107/73 (84) 100 10/05/20 01:15 72 16 109/68 (82) 100 10/05/20 01:00 69 16 120/71 (87) 100 10/05/20 00:45 67 16 114/76 (89) 100 10/05/20 00:30 69 16 115/67 (83) 100 10/05/20 00:15 68 16 108/70 (83) 100 10/05/20 00:00 72 16 102/72 (82) 100 10/05/20 00:00 Mechanical Ventilator 10/04/20 23:00 106/64 10/04/20 23:00 106/64 10/04/20 23:00 68 16 106/64 (78) 100 10/04/20 22:51 77 17 40 10/04/20 22:30 66 16 105/67 (80) 100 10/04/20 22:00 109/73 10/04/20 22:00 74 16 109/73 (85) 100 10/04/20 21:30 73 17 114/64 (81) 100 10/04/20 21:00 112/67 10/04/20 21:00 72 16 112/67 (82) 100 10/04/20 20:30 71 16 110/70 (83) 100 10/04/20 20:00 71 16 109/69 (82) 100 10/04/20 20:00 40 10/04/20 20:00 72 10/04/20 20:00 109/69 10/04/20 20:00 Mechanical Ventilator 10/04/20 19:30 71 16 108/64 (79) 100 10/04/20 19:10 77 16 40 10/04/20 19:00 69 16 105/64 (78) 100 10/04/20 19:00 115/80 10/04/20 19:00 105/64 10/04/20 19:00 69 16 105/64 (78) 100 10/04/20 18:00 101/61 10/04/20 18:00 67 16 101/61 (74) 100 10/04/20 17:00 98.5 70 16 108/66 (80) 100 10/04/20 17:00 109/66 10/04/20 16:00 40 10/04/20 16:00 68 16 110/66 (81) 100 10/04/20 16:00 78 10/04/20 16:00 Mechanical Ventilator 10/04/20 16:00 110/66 10/04/20 15:00 114/77 10/04/20 15:00 91 16 114/77 (89) 100 10/04/20 14:45 76 18 40 10/04/20 14:00 110/76 10/04/20 14:00 95 16 110/76 (87) 100 10/04/20 13:00 89 16 111/78 (89) 100 10/04/20 13:00 111/78 10/04/20 12:55 73 20 40 10/04/20 12:45 110/76 10/04/20 12:00 98.7 102 16 101/71 (81) 100 10/04/20 12:00 107 10/04/20 12:00 101/71 10/04/20 12:00 Mechanical Ventilator 10/04/20 11:00 109/72 10/04/20 11:00 110 17 96/69 (78) 100 10/04/20 11:00 106 18 107/69 (82) 100 10/04/20 10:45 72 20 40 10/04/20 10:05 40 10/04/20 10:00 96/69 10/04/20 10:00 84 16 108/76 (87) 100 10/04/20 10:00 40 10/04/20 09:00 108/76 10/04/20 09:00 108 16 115/72 (86) 100 10/04/20 08:49 74 20 40 Height (Feet): 6 Height (Inches): 8.00 Weight (Pounds): 165 Gen: Intubated on Vent HEENT: NCAT, MMM, No scleral icterus Pulm: RRR No accessory muscle use Abd: Soft, ND, + BS SKIN: Exposed skin normal in color no rash noted Laboratory Tests Test 10/04/20 12:08 10/04/20 12:55 10/04/20 20:40 10/05/20 04:37 POC Whole Blood Glucose 166 MG/DL (74-106) H Lactic Acid Level 2.50 mmol/L (0.4-2.0) H 3.00 mmol/L (0.66-2.22) H 2.70 mmol/L (0.4-2.0) H White Blood Count 15.8 K/UL (4.8-10.8) H Red Blood Count 2.73 M/UL (4.70-6.10) L Hemoglobin 8.6 G/DL (14.2-18.0) L Hematocrit 25.5 % (42.0-52.0) L Mean Corpuscular Volume 93 FL (80-99) Mean Corpuscular Hemoglobin 31.5 PG (27.0-31.0) H Mean Corpuscular Hemoglobin Concent 33.8 G/DL (32.0-36.0) Red Cell Distribution Width 17.6 % (11.6-14.8) H Platelet Count 41 K/UL (150-450) L Mean Platelet Volume 9.9 FL (6.5-10.1) Neutrophils (%) (Auto) % (45.0-75.0) Lymphocytes (%) (Auto) % (20.0-45.0) Monocytes (%) (Auto) % (1.0-10.0) Eosinophils (%) (Auto) % (0.0-3.0) Basophils (%) (Auto) % (0.0-2.0) Differential Total Cells Counted 100 Neutrophils % (Manual) 78 % (45-75) H Lymphocytes % (Manual) 8 % (20-45) L Monocytes % (Manual) 9 % (1-10) Eosinophils % (Manual) 0 % (0-3) Basophils % (Manual) 0 % (0-2) Band Neutrophils 5 % (0-8) Platelet Estimate Decreased L Platelet Morphology Normal Hypochromasia 2+ Anisocytosis 2+ Sodium Level 142 MMOL/L (136-145) Potassium Level 2.9 MMOL/L (3.5-5.1) L Chloride Level 105 MMOL/L (98-107) Carbon Dioxide Level 19 MMOL/L (21-32) L Anion Gap 19 mmol/L (5-15) H Blood Urea Nitrogen 68 mg/dL (7-18) H Creatinine 7.5 MG/DL (0.55-1.30) H Estimat Glomerular Filtration Rate 8.6 mL/min (>60) Glucose Level 197 MG/DL (74-106) H Uric Acid 8.0 MG/DL (2.6-7.2) H Calcium Level 9.3 MG/DL (8.5-10.1) Phosphorus Level 3.8 MG/DL (2.5-4.9) Magnesium Level 2.3 MG/DL (1.8-2.4) Total Bilirubin 0.7 MG/DL (0.2-1.0) Aspartate Amino Transf (AST/SGOT) 40 U/L (15-37) H Alanine Aminotransferase (ALT/SGPT) 40 U/L (12-78) Alkaline Phosphatase 121 U/L (46-116) H Total Protein 5.5 G/DL (6.4-8.2) L Albumin 2.7 G/DL (3.4-5.0) L Globulin 2.8 g/dL Albumin/Globulin Ratio 1.0 (1.0-2.7) Current Medications Medications (Trade) Dose Ordered Sig/Alfredo Route PRN Reason Start Time Stop Time Status Last Admin Dose Admin Acetaminophen (Tylenol) 650 mg EVERY 6 HOURS PRN NG Temp >100.5 09/30/20 02:30 10/30/20 02:29 Allopurinol (Zyloprim) 300 mg DAILY NG 10/05/20 09:00 11/04/20 08:59 Chlorhexidine Gluconate (Babita-Hex 2%) 1 applic DAILY@2000 TOPIC 09/30/20 20:00 12/29/20 19:59 10/04/20 20:28 Dextrose (Dextrose 50%) 25 ml Q30M PRN IV Hypoglycemia 09/30/20 02:30 12/29/20 02:29 Dextrose (Dextrose 50%) 50 ml Q30M PRN IV Hypoglycemia 09/30/20 02:30 12/29/20 02:29 Dextrose/Sodium Chloride 1,000 ml @ 75 mls/hr [id number] IV 09/30/20 03:30 10/30/20 03:29 10/05/20 02:00 Famotidine (Pepcid I.v.) 20 mg DAILY IVP 09/30/20 10:00 10/30/20 09:59 10/04/20 08:26 Hydrocortisone (Solu-CORTEF) 100 mg EVERY 8 HOURS IV 09/30/20 14:00 12/29/20 13:59 10/05/20 07:46 Levetiracetam 100 ml @ 400 mls/hr Q12HR IVPB 10/02/20 09:00 12/31/20 08:59 10/04/20 21:25 Lorazepam (Ativan 2mg/ml 1ml) 1 mg Q4H PRN IV For Seizures 10/01/20 16:00 10/08/20 15:59 10/02/20 10:00 Norepinephrine Bitartrate 8 mg/ Dextrose 250 ml @ 0 mls/hr Q24H IV 10/03/20 12:45 10/06/20 12:44 10/04/20 23:00 Piperacillin Sod/ Tazobactam Sod 3.375 gm/Sodium Chloride 110 ml @ 27.5 mls/hr Q12HR IVPB 09/30/20 09:00 10/07/20 08:59 10/04/20 21:25 Sodium Citrate (Bicitra) 30 ml EVERY 6 HOURS NG 10/01/20 12:00 10/31/20 11:59 10/05/20 07:45 Vancomycin HCl ([facility] pharmacy to dose) 1 ea DAILY PRN MISC Per rx protocol 09/30/20 10:00 10/30/20 09:59 Yoel Ricketts MD Oct 05, 2020 08:29
[2020-10-05] MEDS: Piperacillin/Tazobactam 3.375 GM in NS 110 ML IVPB SCH ×2 (08:35→20:36)
[2020-10-05] MEDS: levETIRAcetam 500mg/NS100ml 100 ML IVPB SCH ×2 (08:37→20:37)
[2020-10-05] MEDS ORDERED: Allopurinol 100mg Tab NG SCH (09:00)
--- NOTE | 2020-10-05 10:14 | NUR ---
NURSE NOTES: Turned and repositioned. Oral care rendered. Suctioned. Pt. comfortable. No s/sx of distress.
--- NOTE | 2020-10-05 10:18 | Neurology Progress Note ---
Interim History Interim History ROS Limited/Unobtainable: Yes Events: remains in icu obtunded Objective Physical Exam Last Vital Signs Date Time Temp Pulse Resp B/P (MAP) Pulse Ox O2 Delivery O2 Flow Rate FiO2 10/05/20 10:00 71 16 107/76 (86) 100 10/05/20 08:00 Mechanical Ventilator 10/05/20 08:00 98.9 10/05/20 08:00 40 10/01/20 04:00 100.0 Laboratory Tests Test 10/04/20 12:08 10/04/20 12:55 10/04/20 20:40 10/05/20 04:37 POC Whole Blood Glucose 166 MG/DL (74-106) H Lactic Acid Level 2.50 mmol/L (0.4-2.0) H 3.00 mmol/L (0.66-2.22) H 2.70 mmol/L (0.4-2.0) H White Blood Count 15.8 K/UL (4.8-10.8) H Red Blood Count 2.73 M/UL (4.70-6.10) L Hemoglobin 8.6 G/DL (14.2-18.0) L Hematocrit 25.5 % (42.0-52.0) L Mean Corpuscular Volume 93 FL (80-99) Mean Corpuscular Hemoglobin 31.5 PG (27.0-31.0) H Mean Corpuscular Hemoglobin Concent 33.8 G/DL (32.0-36.0) Red Cell Distribution Width 17.6 % (11.6-14.8) H Platelet Count 41 K/UL (150-450) L Mean Platelet Volume 9.9 FL (6.5-10.1) Neutrophils (%) (Auto) % (45.0-75.0) Lymphocytes (%) (Auto) % (20.0-45.0) Monocytes (%) (Auto) % (1.0-10.0) Eosinophils (%) (Auto) % (0.0-3.0) Basophils (%) (Auto) % (0.0-2.0) Differential Total Cells Counted 100 Neutrophils % (Manual) 78 % (45-75) H Lymphocytes % (Manual) 8 % (20-45) L Monocytes % (Manual) 9 % (1-10) Eosinophils % (Manual) 0 % (0-3) Basophils % (Manual) 0 % (0-2) Band Neutrophils 5 % (0-8) Platelet Estimate Decreased L Platelet Morphology Normal Hypochromasia 2+ Anisocytosis 2+ Sodium Level 142 MMOL/L (136-145) Potassium Level 2.9 MMOL/L (3.5-5.1) L Chloride Level 105 MMOL/L (98-107) Carbon Dioxide Level 19 MMOL/L (21-32) L Anion Gap 19 mmol/L (5-15) H Blood Urea Nitrogen 68 mg/dL (7-18) H Creatinine 7.5 MG/DL (0.55-1.30) H Estimat Glomerular Filtration Rate 8.6 mL/min (>60) Glucose Level 197 MG/DL (74-106) H Uric Acid 8.0 MG/DL (2.6-7.2) H Calcium Level 9.3 MG/DL (8.5-10.1) Phosphorus Level 3.8 MG/DL (2.5-4.9) Magnesium Level 2.3 MG/DL (1.8-2.4) Total Bilirubin 0.7 MG/DL (0.2-1.0) Aspartate Amino Transf (AST/SGOT) 40 U/L (15-37) H Alanine Aminotransferase (ALT/SGPT) 40 U/L (12-78) Alkaline Phosphatase 121 U/L (46-116) H Total Protein 5.5 G/DL (6.4-8.2) L Albumin 2.7 G/DL (3.4-5.0) L Globulin 2.8 g/dL Albumin/Globulin Ratio 1.0 (1.0-2.7) Neurologic Exam Objective Physical Exam: Limited due to patients status unresponsive comatose, Pupils are sluggish, pupils equal reactive to light corneal reflex absent, gag reflex absent facial symmetric motor: no spontaneous movement in extremities, sensory response does not withdraw to pain Impression/Recommendations Status: unchanged Diagnostic Impression Imaging: EEG reviewed CT Head: No evidence of acute intracranial hemorrhage, mass effect or cortical edema. MRI recommended for more sensitive evaluation as clinically indicated. Atrophy and nonspecific periventricular hypoattenuation suggestive of chronic ischemic microvascular changes. Assessment And Rec's 1. Anoxic Encephalopathy --> EEG revealed short waves consistent with seizure activity --> S/p recent CODE Blue and intubation --> CT head reviewed as above 2. Abnormal EEG --> Possible subclinical seizure activity, it is not definitive --> Will start patient on presumptive seizure medication, Agree to continue with Keppra 500mg IV BID 3. Acute hypoxemic respiratory failure --> s/p intubation on vent 4. Questionable Pneumonia vs other ---> on abx Covid Ag is NEGATIVE, PCR sent and pending. PUI status 5. Anemia 6. FTT --> Supportive care Thank you for allowing us to participate in patient's care, plan of care was discussed with Dr. Jose Armando Camarena who agrees and has reviewed EEG results. Stacy Hinds NP Oct 05, 2020 10:18
--- NOTE | 2020-10-05 10:45 | Pulmonology Progress Note ---
Subjective ROS Limited/Unobtainable: Yes Interval Events: No change; remains intubated Constitutional: Reports: no symptoms HEENT: Repors: no symptoms Respiratory: Reports: no symptoms Cardiovascular: Reports: no symptoms Gastrointestinal/Abdominal: Reports: no symptoms Genitourinary: Reports: no symptoms Allergies: Coded Allergies: No Known Allergies (Unverified , 09/13/20) Objective Last 24 Hour Vital Signs Date Time Temp Pulse Resp B/P (MAP) Pulse Ox O2 Delivery O2 Flow Rate FiO2 10/05/20 10:00 71 16 107/76 (86) 100 10/05/20 09:00 78 16 114/77 (89) 100 10/05/20 08:00 Mechanical Ventilator 10/05/20 08:00 98.9 73 16 106/72 (83) 100 10/05/20 08:00 74 10/05/20 08:00 40 10/05/20 07:30 66 16 86/54 (65) 100 10/05/20 07:20 95 16 40 10/05/20 07:00 67 16 86/55 (65) 100 10/05/20 06:30 83 16 10/05/20 06:30 80 16 116/79 (91) 100 10/05/20 06:00 92/58 (69) 10/05/20 05:30 71 17 121/67 (85) 100 10/05/20 05:00 58 16 106/67 (80) 100 10/05/20 04:00 71 16 110/71 (84) 100 10/05/20 04:00 63 10/05/20 04:00 40 10/05/20 04:00 Mechanical Ventilator 10/05/20 03:30 72 16 91/61 (71) 100 10/05/20 03:07 69 17 100 Mechanical Ventilator 40 10/05/20 03:07 71 17 40 10/05/20 03:00 62 16 103/61 (75) 100 10/05/20 02:30 68 16 115/71 (86) 100 10/05/20 02:00 66 16 112/71 (85) 100 10/05/20 01:30 68 16 107/73 (84) 100 10/05/20 01:15 72 16 109/68 (82) 100 10/05/20 01:00 69 16 120/71 (87) 100 10/05/20 00:45 67 16 114/76 (89) 100 10/05/20 00:30 69 16 115/67 (83) 100 10/05/20 00:15 68 16 108/70 (83) 100 10/05/20 00:00 72 16 102/72 (82) 100 10/05/20 00:00 Mechanical Ventilator 10/04/20 23:00 106/64 10/04/20 23:00 106/64 10/04/20 23:00 68 16 106/64 (78) 100 10/04/20 22:51 77 17 40 10/04/20 22:30 66 16 105/67 (80) 100 10/04/20 22:00 109/73 10/04/20 22:00 74 16 109/73 (85) 100 10/04/20 21:30 73 17 114/64 (81) 100 10/04/20 21:00 112/67 10/04/20 21:00 72 16 112/67 (82) 100 10/04/20 20:30 71 16 110/70 (83) 100 10/04/20 20:00 71 16 109/69 (82) 100 10/04/20 20:00 40 10/04/20 20:00 72 10/04/20 20:00 109/69 10/04/20 20:00 Mechanical Ventilator 10/04/20 19:30 71 16 108/64 (79) 100 10/04/20 19:10 77 16 40 10/04/20 19:00 69 16 105/64 (78) 100 10/04/20 19:00 115/80 10/04/20 19:00 105/64 10/04/20 19:00 69 16 105/64 (78) 100 10/04/20 18:00 101/61 10/04/20 18:00 67 16 101/61 (74) 100 10/04/20 17:00 98.5 70 16 108/66 (80) 100 10/04/20 17:00 109/66 10/04/20 16:00 40 10/04/20 16:00 68 16 110/66 (81) 100 10/04/20 16:00 78 10/04/20 16:00 Mechanical Ventilator 10/04/20 16:00 110/66 10/04/20 15:00 114/77 10/04/20 15:00 91 16 114/77 (89) 100 10/04/20 14:45 76 18 40 10/04/20 14:00 110/76 10/04/20 14:00 95 16 110/76 (87) 100 10/04/20 13:00 89 16 111/78 (89) 100 10/04/20 13:00 111/78 10/04/20 12:55 73 20 40 10/04/20 12:45 110/76 10/04/20 12:00 98.7 102 16 101/71 (81) 100 10/04/20 12:00 107 10/04/20 12:00 101/71 10/04/20 12:00 Mechanical Ventilator 10/04/20 11:00 109/72 10/04/20 11:00 110 17 96/69 (78) 100 10/04/20 11:00 106 18 107/69 (82) 100 10/04/20 10:45 72 20 40 Intake and Output 10/04/20 10/05/20 19:00 07:00 Intake Total 1662.50 ml 1345.0 ml Output Total 90 ml 0 ml Balance 1572.50 ml 1345.0 ml IV Total 1582.50 ml 1105.0 ml Tube Feeding 80 ml 240 ml Output Urine Total 90 ml 0 ml # Bowel Movements 2 General Appearance: no acute distress HEENT: normocephalic Respiratory: chest wall non-tender Cardiovascular: normal peripheral pulses Abdomen: normal bowel sounds Microbiology Date/Time Source Procedure Growth Status 10/03/20 16:00 Blood Blood Culture - Preliminary NO GROWTH AFTER 24 HOURS Resulted 10/03/20 13:40 Blood Blood Culture - Preliminary NO GROWTH AFTER 24 HOURS Resulted Laboratory Tests 10/04/20 12:08: POC Whole Blood Glucose 166H 10/04/20 12:55: Lactic Acid Level 2.50H 10/04/20 20:40: Lactic Acid Level 3.00H 10/05/20 04:37: Lactic Acid Level 2.70H, White Blood Count 15.8H, Red Blood Count 2.73L, Hemoglobin 8.6L, Hematocrit 25.5L, Mean Corpuscular Volume 93, Mean Corpuscular Hemoglobin 31.5H, Mean Corpuscular Hemoglobin Concent 33.8, Red Cell Distribution Width 17.6H, Platelet Count 41L, Mean Platelet Volume 9.9, Neutrophils (%) (Auto) , Lymphocytes (%) (Auto) , Monocytes (%) (Auto) , Eosinophils (%) (Auto) , Basophils (%) (Auto) , Differential Total Cells Counted 100, Neutrophils % (Manual) 78H, Lymphocytes % (Manual) 8L, Monocytes % (Manual) 9, Eosinophils % (Manual) 0, Basophils % (Manual) 0, Band Neutrophils 5, Platelet Estimate DecreasedL, Platelet Morphology Normal, Hypochromasia 2+, Anisocytosis 2+, Sodium Level 142, Potassium Level 2.9L, Chloride Level 105, Carbon Dioxide Level 19L, Anion Gap 19H, Blood Urea Nitrogen 68H, Creatinine 7.5H, Estimat Glomerular Filtration Rate 8.6, Glucose Level 197H, Uric Acid 8.0H , Calcium Level 9.3, Phosphorus Level 3.8, Magnesium Level 2.3, Total Bilirubin 0.7, Aspartate Amino Transf (AST/SGOT) 40H, Alanine Aminotransferase (ALT/SGPT) 40, Alkaline Phosphatase 121H, Total Protein 5.5L, Albumin 2.7L, Globulin 2.8, Albumin/Globulin Ratio 1.0 Current Medications Medications (Trade) Dose Ordered Sig/Alfredo Route PRN Reason Start Time Stop Time Status Last Admin Dose Admin Acetaminophen (Tylenol) 650 mg EVERY 6 HOURS PRN NG Temp >100.5 09/30/20 02:30 10/30/20 02:29 Allopurinol (allopurinoL) 300 mg DAILY NG 10/06/20 09:00 11/04/20 08:59 Chlorhexidine Gluconate (Babita-Hex 2%) 1 applic DAILY@2000 TOPIC 09/30/20 20:00 12/29/20 19:59 10/04/20 20:28 Dextrose (Dextrose 50%) 25 ml Q30M PRN IV Hypoglycemia 09/30/20 02:30 12/29/20 02:29 Dextrose (Dextrose 50%) 50 ml Q30M PRN IV Hypoglycemia 09/30/20 02:30 12/29/20 02:29 Dextrose/Sodium Chloride 1,000 ml @ 75 mls/hr [id number] IV 09/30/20 03:30 10/30/20 03:29 10/05/20 02:00 Famotidine (Pepcid I.v.) 20 mg DAILY IVP 09/30/20 10:00 10/30/20 09:59 10/05/20 08:31 Hydrocortisone (Solu-CORTEF) 100 mg EVERY 8 HOURS IV 09/30/20 14:00 12/29/20 13:59 10/05/20 07:46 Levetiracetam 100 ml @ 400 mls/hr Q12HR IVPB 10/02/20 09:00 12/31/20 08:59 10/05/20 08:37 Lorazepam (Ativan 2mg/ml 1ml) 1 mg Q4H PRN IV For Seizures 10/01/20 16:00 10/08/20 15:59 10/02/20 10:00 Norepinephrine Bitartrate 8 mg/ Dextrose 250 ml @ 0 mls/hr Q24H IV 10/03/20 12:45 10/06/20 12:44 10/04/20 23:00 Piperacillin Sod/ Tazobactam Sod 3.375 gm/Sodium Chloride 110 ml @ 27.5 mls/hr Q12HR IVPB 09/30/20 09:00 10/07/20 08:59 10/05/20 08:35 Sodium Citrate (Bicitra) 30 ml EVERY 6 HOURS NG 10/01/20 12:00 10/31/20 11:59 10/05/20 07:45 Vancomycin HCl ([facility]anco pharmacy to dose) 1 ea DAILY PRN MISC Per rx protocol 09/30/20 10:00 10/30/20 09:59 Assessment/Plan Assessment/Plan IMPRESSION: 1. Respiratory failure. 2. Multiple medical problems consisting of hypertension, thalassemia, chronic pancreatitis, GERD, neuropathy, and depression. 3. Shock; on pressors 4. Acute renal failure and metabolic acidosis 5. Lactic acidemia 6. AMS; CT brain negative DISCUSSION: Code status needs to be discussed with family. Currently the patient is intubated. Dialysis being considered I will continue AC mode. Wean as tolerated but will not extubate till more awake and off pressors Continue IV fluids. Pressors prn DVT and GI prophylaxis. Broad-spectrum antibiotics. I will follow carefully. Bicarb supplementation ABG adequate Dennis Tirmizi, M.D. Tirmizi,Dennis Adal MD Oct 05, 2020 10:45
--- NOTE | 2020-10-05 10:58 | Surgery Progress Note ---
Surgery Progress Note Subjective Additional Comments leukocytosis anemia lactic acidosis ett in place on vent Objective Last 24 Hour Vital Signs Date Time Temp Pulse Resp B/P (MAP) Pulse Ox O2 Delivery O2 Flow Rate FiO2 10/05/20 10:00 71 16 107/76 (86) 100 10/05/20 09:00 78 16 114/77 (89) 100 10/05/20 08:00 Mechanical Ventilator 10/05/20 08:00 98.9 73 16 106/72 (83) 100 10/05/20 08:00 74 10/05/20 08:00 40 10/05/20 07:30 66 16 86/54 (65) 100 10/05/20 07:20 95 16 40 10/05/20 07:00 67 16 86/55 (65) 100 10/05/20 06:30 83 16 10/05/20 06:30 80 16 116/79 (91) 100 10/05/20 06:00 92/58 (69) 10/05/20 05:30 71 17 121/67 (85) 100 10/05/20 05:00 58 16 106/67 (80) 100 10/05/20 04:00 71 16 110/71 (84) 100 10/05/20 04:00 63 10/05/20 04:00 40 10/05/20 04:00 Mechanical Ventilator 10/05/20 03:30 72 16 91/61 (71) 100 10/05/20 03:07 69 17 100 Mechanical Ventilator 40 10/05/20 03:07 71 17 40 10/05/20 03:00 62 16 103/61 (75) 100 10/05/20 02:30 68 16 115/71 (86) 100 10/05/20 02:00 66 16 112/71 (85) 100 10/05/20 01:30 68 16 107/73 (84) 100 10/05/20 01:15 72 16 109/68 (82) 100 10/05/20 01:00 69 16 120/71 (87) 100 10/05/20 00:45 67 16 114/76 (89) 100 10/05/20 00:30 69 16 115/67 (83) 100 10/05/20 00:15 68 16 108/70 (83) 100 10/05/20 00:00 72 16 102/72 (82) 100 10/05/20 00:00 Mechanical Ventilator 10/04/20 23:00 106/64 10/04/20 23:00 106/64 10/04/20 23:00 68 16 106/64 (78) 100 10/04/20 22:51 77 17 40 10/04/20 22:30 66 16 105/67 (80) 100 10/04/20 22:00 109/73 10/04/20 22:00 74 16 109/73 (85) 100 10/04/20 21:30 73 17 114/64 (81) 100 10/04/20 21:00 112/67 10/04/20 21:00 72 16 112/67 (82) 100 10/04/20 20:30 71 16 110/70 (83) 100 10/04/20 20:00 71 16 109/69 (82) 100 10/04/20 20:00 40 10/04/20 20:00 72 10/04/20 20:00 109/69 10/04/20 20:00 Mechanical Ventilator 10/04/20 19:30 71 16 108/64 (79) 100 10/04/20 19:10 77 16 40 10/04/20 19:00 69 16 105/64 (78) 100 10/04/20 19:00 115/80 10/04/20 19:00 105/64 10/04/20 19:00 69 16 105/64 (78) 100 10/04/20 18:00 101/61 10/04/20 18:00 67 16 101/61 (74) 100 10/04/20 17:00 98.5 70 16 108/66 (80) 100 10/04/20 17:00 109/66 10/04/20 16:00 40 10/04/20 16:00 68 16 110/66 (81) 100 10/04/20 16:00 78 10/04/20 16:00 Mechanical Ventilator 10/04/20 16:00 110/66 10/04/20 15:00 114/77 10/04/20 15:00 91 16 114/77 (89) 100 10/04/20 14:45 76 18 40 10/04/20 14:00 110/76 10/04/20 14:00 95 16 110/76 (87) 100 10/04/20 13:00 89 16 111/78 (89) 100 10/04/20 13:00 111/78 10/04/20 12:55 73 20 40 10/04/20 12:45 110/76 10/04/20 12:00 98.7 102 16 101/71 (81) 100 10/04/20 12:00 107 10/04/20 12:00 101/71 10/04/20 12:00 Mechanical Ventilator 10/04/20 11:00 109/72 10/04/20 11:00 110 17 96/69 (78) 100 10/04/20 11:00 106 18 107/69 (82) 100 I&O Intake and Output 10/04/20 10/05/20 19:00 07:00 Intake Total 1662.50 ml 1345.0 ml Output Total 90 ml 0 ml Balance 1572.50 ml 1345.0 ml IV Total 1582.50 ml 1105.0 ml Tube Feeding 80 ml 240 ml Output Urine Total 90 ml 0 ml # Bowel Movements 2 Dressing: saturated Cardiovascular: RSR Respiratory: decreased breath sounds Abdomen: soft, non-tender, present bowel sounds, non-distended Extremities: no tenderness, no cyanosis Laboratory Tests Test 10/04/20 12:08 10/04/20 12:55 10/04/20 20:40 10/05/20 04:37 POC Whole Blood Glucose 166 MG/DL (74-106) H Lactic Acid Level 2.50 mmol/L (0.4-2.0) H 3.00 mmol/L (0.66-2.22) H 2.70 mmol/L (0.4-2.0) H White Blood Count 15.8 K/UL (4.8-10.8) H Red Blood Count 2.73 M/UL (4.70-6.10) L Hemoglobin 8.6 G/DL (14.2-18.0) L Hematocrit 25.5 % (42.0-52.0) L Mean Corpuscular Volume 93 FL (80-99) Mean Corpuscular Hemoglobin 31.5 PG (27.0-31.0) H Mean Corpuscular Hemoglobin Concent 33.8 G/DL (32.0-36.0) Red Cell Distribution Width 17.6 % (11.6-14.8) H Platelet Count 41 K/UL (150-450) L Mean Platelet Volume 9.9 FL (6.5-10.1) Neutrophils (%) (Auto) % (45.0-75.0) Lymphocytes (%) (Auto) % (20.0-45.0) Monocytes (%) (Auto) % (1.0-10.0) Eosinophils (%) (Auto) % (0.0-3.0) Basophils (%) (Auto) % (0.0-2.0) Differential Total Cells Counted 100 Neutrophils % (Manual) 78 % (45-75) H Lymphocytes % (Manual) 8 % (20-45) L Monocytes % (Manual) 9 % (1-10) Eosinophils % (Manual) 0 % (0-3) Basophils % (Manual) 0 % (0-2) Band Neutrophils 5 % (0-8) Platelet Estimate Decreased L Platelet Morphology Normal Hypochromasia 2+ Anisocytosis 2+ Sodium Level 142 MMOL/L (136-145) Potassium Level 2.9 MMOL/L (3.5-5.1) L Chloride Level 105 MMOL/L (98-107) Carbon Dioxide Level 19 MMOL/L (21-32) L Anion Gap 19 mmol/L (5-15) H Blood Urea Nitrogen 68 mg/dL (7-18) H Creatinine 7.5 MG/DL (0.55-1.30) H Estimat Glomerular Filtration Rate 8.6 mL/min (>60) Glucose Level 197 MG/DL (74-106) H Uric Acid 8.0 MG/DL (2.6-7.2) H Calcium Level 9.3 MG/DL (8.5-10.1) Phosphorus Level 3.8 MG/DL (2.5-4.9) Magnesium Level 2.3 MG/DL (1.8-2.4) Total Bilirubin 0.7 MG/DL (0.2-1.0) Aspartate Amino Transf (AST/SGOT) 40 U/L (15-37) H Alanine Aminotransferase (ALT/SGPT) 40 U/L (12-78) Alkaline Phosphatase 121 U/L (46-116) H Total Protein 5.5 G/DL (6.4-8.2) L Albumin 2.7 G/DL (3.4-5.0) L Globulin 2.8 g/dL Albumin/Globulin Ratio 1.0 (1.0-2.7) Plan Problems: (1) Cardiopulmonary arrest (2) Septic shock Assessment & Plan: 75 male leukocytosis lactic acidosis septic shock intubated intensive care unit. Unable to give abdominal exam, exam otherwise benign abdominal unlikely etiology imaging reviewed labs reviewed. Continue ventilator support respiratory in nature seemingly. NG tube IV fluids IV antibiotics will follow with recommendations thank you letter participation's care DAILY ESTIMATED NEEDS: Needs based on Critical care 74.2kg 22-28 kcals/kg 5795-8742 total kcals 1.2-2 g protein/kg 89-148 g total protein 25-30 mL/kg 8746-6096 total fluid mLs NUTRITION DIAGNOSIS: Swallowing difficulty r/t respiratory arrest as evidenced by pt intubated, on pressor support, ICU status. ENTERAL NUTRITION RECOMMENDATIONS: As able NEPRO @40ml/hr x24 hrs to provide 960ml, 1728 kcal, 78g pro, 698ml free H2O -When stable for feeds rec renal formula at this time d/t increasing K and phos. -obtain GI access, initiate Nepro @20ml/hr for 6 hrs, advance as tolerated 10ml/hr 2q4-6 hrs to goal -When tolerating TF at goal, add prosource 1 pack BID to better meet est pro needs. -Flush per HOB over 30 degrees. ----> If hemodynamically unstable, rec trophic feeds of Nepro @10ml/hr to maintain gut integrity. ADDITIONAL RECOMMENDATIONS: 1) F/up w/ H&P 2) Maintain D5 IV hydration while NPO 3) Maintain calibrated bed scale wts 4) Non oral feeds when stable (3) Lactic acidosis (4) Failure to thrive (5) Pancytopenia (6) Respiratory failure (7) Hypoxia (8) Pneumonia (9) Respiratory arrest (10) Hypernatremia (11) Renal failure Oni Walker Oct 05, 2020 10:58
--- NOTE | 2020-10-05 11:08 | NUR ---
RESPIRATORY NOTE: Attempted to wean pt on CPAP PS 8, +5, 40% fio2. Pt went apneic and made no effort to breathe spontaneously. RN notified.
--- NOTE | 2020-10-05 11:26 | NUR ---
NURSE NOTES: Seen by Dr. Whitehead. called family and explained that pt. need non tunnel catheter and Hemodialysis. CN and this RN obtained consent via phone from Mr. Sma Schmidt. Will cont. to monitor.
--- NOTE | 2020-10-05 12:02 | Nephrology Progress Note ---
Assessment/Plan Problem List: (1) COURTNEY (acute kidney injury) (2) Cardiopulmonary arrest (3) Respiratory failure (4) Septic shock Assessment Acute renal failure Septic shock Acute respiratory failure CODE STATUS now DNR Plan October 05: Status quo. Labs reviewed. Serum creatinine creeping up. Patient hemodynamically more stable today than a few days ago. Called brother and he is agreeable for a trial of dialysis treatment with the hope to reverse the acute component of the renal failure. Nontunneled catheter placement ordered. Dialysis ordered. Continue to monitor renal parameters. Medication list reviewed. Discussed with RN and charge nurse. October 04: Status quo. Intubated on ventilator. Labs reviewed. Serum creatinine is plateauing. Trial of Zaroxolyn and 25% albumin infusion given. Abnormal electrolytes addressed. Continue as is. October 03: Continues to be on 6 mics of Levophed. Urine output 350 cc past 24 hours. No urine output since this morning. Labs reviewed. Discussed with KIRBY Diallo. Albumin bolus given. Zaroxolyn 1 dose ordered. Serum creatinine appears to be leveling off. Continue to monitor renal parameters. Patient DNR. October 02: Remains on low-dose pressors today almost anuric. Discussed with KIRBY Shook. Labs reviewed. Medication list reviewed. Trial of albumin and Lasi x. Continue to monitor renal parameters. Patient DNR. FiO2 40% October 01: Patient clinically more stable. Discussed with KIRBY Tarango. Patient off pressors. ABG improved. Serum creatinine worse. Will start the patient on Bicitra and allopurinol through NG tube. Continue to monitor renal parameters. Per orders. Patient currently DNR. Previously: Pulmonary support Pressors Antibiotics Hydrocortisone Per orders Subjective ROS Limited/Unobtainable: Yes Objective Objective Last 24 Hour Vital Signs Date Time Temp Pulse Resp B/P (MAP) Pulse Ox O2 Delivery O2 Flow Rate FiO2 10/05/20 11:08 100 10/05/20 11:01 82 16 30 10/05/20 11:00 83 17 118/78 (91) 100 10/05/20 10:00 71 16 107/76 (86) 100 10/05/20 09:00 78 16 114/77 (89) 100 10/05/20 08:00 Mechanical Ventilator 10/05/20 08:00 98.9 73 16 106/72 (83) 100 10/05/20 08:00 74 10/05/20 08:00 40 10/05/20 07:30 66 16 86/54 (65) 100 10/05/20 07:20 95 16 40 10/05/20 07:00 67 16 86/55 (65) 100 10/05/20 06:30 83 16 10/05/20 06:30 80 16 116/79 (91) 100 10/05/20 06:00 92/58 (69) 10/05/20 05:30 71 17 121/67 (85) 100 10/05/20 05:00 58 16 106/67 (80) 100 10/05/20 04:00 71 16 110/71 (84) 100 10/05/20 04:00 63 10/05/20 04:00 40 10/05/20 04:00 Mechanical Ventilator 10/05/20 03:30 72 16 91/61 (71) 100 10/05/20 03:07 69 17 100 Mechanical Ventilator 40 10/05/20 03:07 71 17 40 10/05/20 03:00 62 16 103/61 (75) 100 10/05/20 02:30 68 16 115/71 (86) 100 10/05/20 02:00 66 16 112/71 (85) 100 10/05/20 01:30 68 16 107/73 (84) 100 10/05/20 01:15 72 16 109/68 (82) 100 10/05/20 01:00 69 16 120/71 (87) 100 10/05/20 00:45 67 16 114/76 (89) 100 10/05/20 00:30 69 16 115/67 (83) 100 10/05/20 00:15 68 16 108/70 (83) 100 10/05/20 00:00 72 16 102/72 (82) 100 10/05/20 00:00 Mechanical Ventilator 10/04/20 23:00 106/64 10/04/20 23:00 106/64 10/04/20 23:00 68 16 106/64 (78) 100 10/04/20 22:51 77 17 40 10/04/20 22:30 66 16 105/67 (80) 100 10/04/20 22:00 109/73 10/04/20 22:00 74 16 109/73 (85) 100 10/04/20 21:30 73 17 114/64 (81) 100 10/04/20 21:00 112/67 10/04/20 21:00 72 16 112/67 (82) 100 10/04/20 20:30 71 16 110/70 (83) 100 10/04/20 20:00 71 16 109/69 (82) 100 10/04/20 20:00 40 10/04/20 20:00 72 10/04/20 20:00 109/69 10/04/20 20:00 Mechanical Ventilator 10/04/20 19:30 71 16 108/64 (79) 100 10/04/20 19:10 77 16 40 10/04/20 19:00 69 16 105/64 (78) 100 10/04/20 19:00 115/80 10/04/20 19:00 105/64 10/04/20 19:00 69 16 105/64 (78) 100 10/04/20 18:00 101/61 10/04/20 18:00 67 16 101/61 (74) 100 10/04/20 17:00 98.5 70 16 108/66 (80) 100 10/04/20 17:00 109/66 10/04/20 16:00 40 10/04/20 16:00 68 16 110/66 (81) 100 10/04/20 16:00 78 10/04/20 16:00 Mechanical Ventilator 10/04/20 16:00 110/66 10/04/20 15:00 114/77 10/04/20 15:00 91 16 114/77 (89) 100 10/04/20 14:45 76 18 40 10/04/20 14:00 110/76 10/04/20 14:00 95 16 110/76 (87) 100 10/04/20 13:00 89 16 111/78 (89) 100 10/04/20 13:00 111/78 10/04/20 12:55 73 20 40 10/04/20 12:45 110/76 10/04/20 12:00 98.7 102 16 101/71 (81) 100 10/04/20 12:00 107 10/04/20 12:00 101/71 10/04/20 12:00 Mechanical Ventilator Intake and Output 10/04/20 10/05/20 19:00 07:00 Intake Total 1662.50 ml 1345.0 ml Output Total 90 ml 0 ml Balance 1572.50 ml 1345.0 ml IV Total 1582.50 ml 1105.0 ml Tube Feeding 80 ml 240 ml Output Urine Total 90 ml 0 ml # Bowel Movements 2 Current Medications Medications (Trade) Dose Ordered Sig/Alfredo Route PRN Reason Start Time Stop Time Status Last Admin Dose Admin Acetaminophen (Tylenol) 650 mg EVERY 6 HOURS PRN NG Temp >100.5 09/30/20 02:30 10/30/20 02:29 Allopurinol (allopurinoL) 300 mg DAILY NG 10/06/20 09:00 11/04/20 08:59 Chlorhexidine Gluconate (Babita-Hex 2%) 1 applic DAILY@2000 TOPIC 09/30/20 20:00 12/29/20 19:59 10/04/20 20:28 Dextrose (Dextrose 50%) 25 ml Q30M PRN IV Hypoglycemia 09/30/20 02:30 12/29/20 02:29 Dextrose (Dextrose 50%) 50 ml Q30M PRN IV Hypoglycemia 09/30/20 02:30 12/29/20 02:29 Dextrose/Sodium Chloride 1,000 ml @ 75 mls/hr [id number] IV 09/30/20 03:30 10/30/20 03:29 10/05/20 02:00 Famotidine (Pepcid I.v.) 20 mg DAILY IVP 09/30/20 10:00 10/30/20 09:59 10/05/20 08:31 Hydrocortisone (Solu-CORTEF) 100 mg EVERY 8 HOURS IV 09/30/20 14:00 12/29/20 13:59 10/05/20 07:46 Levetiracetam 100 ml @ 400 mls/hr Q12HR IVPB 10/02/20 09:00 12/31/20 08:59 10/05/20 08:37 Lorazepam (Ativan 2mg/ml 1ml) 1 mg Q4H PRN IV For Seizures 10/01/20 16:00 10/08/20 15:59 10/02/20 10:00 Norepinephrine Bitartrate 8 mg/ Dextrose 250 ml @ 0 mls/hr Q24H IV 10/03/20 12:45 10/06/20 12:44 10/04/20 23:00 Piperacillin Sod/ Tazobactam Sod 3.375 gm/Sodium Chloride 110 ml @ 27.5 mls/hr Q12HR IVPB 09/30/20 09:00 10/07/20 08:59 10/05/20 08:35 Sodium Citrate (Bicitra) 30 ml EVERY 6 HOURS NG 10/01/20 12:00 10/31/20 11:59 10/05/20 07:45 Vancomycin HCl ([facility] pharmacy to dose) 1 ea DAILY PRN MISC Per rx protocol 09/30/20 10:00 10/30/20 09:59 Laboratory Tests 10/04/20 12:08: POC Whole Blood Glucose 166H 10/04/20 12:55: Lactic Acid Level 2.50H 10/04/20 20:40: Lactic Acid Level 3.00H 10/05/20 04:37: Lactic Acid Level 2.70H, White Blood Count 15.8H, Red Blood Count 2.73L, Hemoglobin 8.6L, Hematocrit 25.5L, Mean Corpuscular Volume 93, Mean Corpuscular Hemoglobin 31.5H, Mean Corpuscular Hemoglobin Concent 33.8, Red Cell Distribution Width 17.6H, Platelet Count 41L, Mean Platelet Volume 9.9, Neutrophils (%) (Auto) , Lymphocytes (%) (Auto) , Monocytes (%) (Auto) , Eosinophils (%) (Auto) , Basophils (%) (Auto) , Differential Total Cells Counted 100, Neutrophils % (Manual) 78H, Lymphocytes % (Manual) 8L, Monocytes % (Manual) 9, Eosinophils % (Manual) 0, Basophils % (Manual) 0, Band Neutrophils 5, Platelet Estimate DecreasedL, Platelet Morphology Normal, Hypochromasia 2+, Anisocytosis 2+, Sodium Level 142, Potassium Level 2.9L, Chloride Level 105, Carbon Dioxide Level 19L, Anion Gap 19H, Blood Urea Nitrogen 68H, Creatinine 7.5H, Estimat Glomerular Filtration Rate 8.6, Glucose Level 197H, Uric Acid 8.0H , Calcium Level 9.3, Phosphorus Level 3.8, Magnesium Level 2.3, Total Bilirubin 0.7, Aspartate Amino Transf (AST/SGOT) 40H, Alanine Aminotransferase (ALT/SGPT) 40, Alkaline Phosphatase 121H, Total Protein 5.5L, Albumin 2.7L, Globulin 2.8, Albumin/Globulin Ratio 1.0 Height (Feet): 6 Height (Inches): 8.00 Weight (Pounds): 165 General Appearance: no apparent distress EENT: other - Intubated on ventilator Cardiovascular: normal rate Respiratory/Chest: decreased breath sounds Abdomen: distended Angel Whitehead MD Oct 05, 2020 12:02
--- NOTE | 2020-10-05 13:05 | NUR ---
NURSE NOTES: Seen by Dr. Lyles with new orders. Hold feeding and connect ngt to low suction. Kcl. 20meq IVPB x 1. Noted and carried out.
--- NOTE | 2020-10-05 15:14 | Consultation ---
DATE OF CONSULTATION: 10/05/2020 GASTROENTEROLOGY CONSULTATION CONSULTING PHYSICIAN: Nando Lyles MD. CHIEF COMPLAINT: Abdominal pain, distention, dysphagia. HISTORY OF PRESENT ILLNESS: Most of history per chart. The patient is seen in the ICU, intubated. The patient was admitted to the ER on September 30 with altered mental status from the [facility]. The patient has numerous medical problems, which I will dictate in a second. GI consult requested for evaluation of abdominal distention. PAST MEDICAL HISTORY: 1. History of thalassemia. 2. Hypertension. 3. Chronic pancreatitis. 4. Dyslipidemia. 5. Atherosclerosis. 6. GERD. 7. Renal cyst. 8. Peripheral neuropathy. 9. History of colonic polyps. 10. Depression. ALLERGIES: No known allergies. MEDICATIONS: Please see medication reconciliation list. SOCIAL HISTORY: Currently lives in a [facility]. No history of tobacco, alcohol, or drug abuse. REVIEW OF SYSTEMS: Unable to obtain. PAST SURGICAL HISTORY: Unknown. FAMILY HISTORY: Noncontributory. PHYSICAL EXAMINATION: VITAL SIGNS: Temperature is 98.9, pulse 80, respirations 16, blood pressure is . HEENT: Normocephalic and atraumatic. Pale conjunctivae. NECK: Supple. No evidence of obvious lymphadenopathy. CARDIOVASCULAR: Tachy. Regular rate. Plus S1-S2. LUNGS: Decreased breath sounds bilaterally based on supine exam. ABDOMEN: Significantly distended and tympanic to percussion. Bowel sounds are hypoactive. EXTREMITIES: No cyanosis, no clubbing, no edema. NEURO: Unable to obtain. LABORATORY DATA: Sodium 142, potassium 3.9, BUN is 68, creatinine 7.5. White count 15, hemoglobin 8, hematocrit 25, platelets of 41. ASSESSMENT AND PLAN: This is a 75-year-old male with numerous medical problems. At this time, intubated in ICU, acute renal failure, respiratory failure, anemic, hypokalemic. Plan to place an NG tube to limited suction. I think the patient most probably has a colonic ileus contributory with hypokalemia and sepsis. Plan to get a CT of the abdomen and pelvis without contrast, put an NG tube and rectal tube, correct the potassium and re-examine for tomorrow. Nando Nirmala Lyles DR: TAL JOB#: [id number] CC:
--- NOTE | 2020-10-05 15:58 | NUR ---
NURSE NOTES: Sponge bath given. No s/sx of distress. Minimal output in f/c bag noted. Connected in low suction for his ngt. No output.
--- NOTE | 2020-10-05 17:05 | NUR ---
NURSE NOTES: Pt. V/S wnl. No grimacing noted. Very little output in f/c. Pending HD tomorrow.
--- NOTE | 2020-10-05 17:18 | Internal Med Progress Note ---
Subjective Date of Service: Oct 05, 2020 Physician Name Semaj Kay Attending Physician Ken Hutton MD Current Medications Medications (Trade) Dose Ordered Sig/Alfredo Route PRN Reason Start Time Stop Time Status Last Admin Dose Admin Acetaminophen (Tylenol) 650 mg EVERY 6 HOURS PRN NG Temp >100.5 09/30/20 02:30 10/30/20 02:29 Allopurinol (allopurinoL) 300 mg DAILY NG 10/06/20 09:00 11/04/20 08:59 Barium Sulfate (Readi-Cat 2) 450 ml NOW PRN ORAL Radiology Procedure 10/05/20 13:00 10/07/20 12:59 Chlorhexidine Gluconate (Babita-Hex 2%) 1 applic DAILY@2000 TOPIC 09/30/20 20:00 12/29/20 19:59 10/04/20 20:28 Dextrose (Dextrose 50%) 25 ml Q30M PRN IV Hypoglycemia 09/30/20 02:30 12/29/20 02:29 Dextrose (Dextrose 50%) 50 ml Q30M PRN IV Hypoglycemia 09/30/20 02:30 12/29/20 02:29 Dextrose/Sodium Chloride 1,000 ml @ 75 mls/hr [id number] IV 09/30/20 03:30 10/30/20 03:29 10/05/20 17:02 Famotidine (Pepcid I.v.) 20 mg DAILY IVP 09/30/20 10:00 10/30/20 09:59 10/05/20 08:31 Hydrocortisone (Solu-CORTEF) 100 mg EVERY 8 HOURS IV 09/30/20 14:00 12/29/20 13:59 10/05/20 14:35 Levetiracetam 100 ml @ 400 mls/hr Q12HR IVPB 10/02/20 09:00 12/31/20 08:59 10/05/20 08:37 Lorazepam (Ativan 2mg/ml 1ml) 1 mg Q4H PRN IV For Seizures 10/01/20 16:00 10/08/20 15:59 10/02/20 10:00 Norepinephrine Bitartrate 8 mg/ Dextrose 250 ml @ 0 mls/hr Q24H IV 10/03/20 12:45 10/06/20 12:44 10/04/20 23:00 Piperacillin Sod/ Tazobactam Sod 3.375 gm/Sodium Chloride 110 ml @ 27.5 mls/hr Q12HR IVPB 09/30/20 09:00 10/07/20 08:59 10/05/20 08:35 Sodium Citrate (Bicitra) 30 ml EVERY 6 HOURS NG 10/01/20 12:00 10/31/20 11:59 10/05/20 12:20 Vancomycin HCl ([facility] pharmacy to dose) 1 ea DAILY PRN MISC Per rx protocol 09/30/20 10:00 10/30/20 09:59 Allergies: Coded Allergies: No Known Allergies (Unverified , 09/13/20) ROS Limited/Unobtainable: Yes Subjective 75 YO M with recent diagnosis of thalassemia admitted with altered mental status. S/P cardiopulmonary arrest 09/29/20. Intubated and sedated. ICU. Cover for Int Sudeep-Dr Hutton Objective Last Vital Signs Date Time Temp Pulse Resp B/P (MAP) Pulse Ox O2 Delivery O2 Flow Rate FiO2 10/05/20 17:00 60 16 107/74 (85) 100 10/05/20 16:00 40 10/05/20 16:00 98.6 10/05/20 16:00 Mechanical Ventilator 10/01/20 04:00 100.0 Laboratory Tests Test 10/04/20 20:40 10/05/20 04:37 Lactic Acid Level 3.00 mmol/L (0.66-2.22) H 2.70 mmol/L (0.4-2.0) H White Blood Count 15.8 K/UL (4.8-10.8) H Red Blood Count 2.73 M/UL (4.70-6.10) L Hemoglobin 8.6 G/DL (14.2-18.0) L Hematocrit 25.5 % (42.0-52.0) L Mean Corpuscular Volume 93 FL (80-99) Mean Corpuscular Hemoglobin 31.5 PG (27.0-31.0) H Mean Corpuscular Hemoglobin Concent 33.8 G/DL (32.0-36.0) Red Cell Distribution Width 17.6 % (11.6-14.8) H Platelet Count 41 K/UL (150-450) L Mean Platelet Volume 9.9 FL (6.5-10.1) Neutrophils (%) (Auto) % (45.0-75.0) Lymphocytes (%) (Auto) % (20.0-45.0) Monocytes (%) (Auto) % (1.0-10.0) Eosinophils (%) (Auto) % (0.0-3.0) Basophils (%) (Auto) % (0.0-2.0) Differential Total Cells Counted 100 Neutrophils % (Manual) 78 % (45-75) H Lymphocytes % (Manual) 8 % (20-45) L Monocytes % (Manual) 9 % (1-10) Eosinophils % (Manual) 0 % (0-3) Basophils % (Manual) 0 % (0-2) Band Neutrophils 5 % (0-8) Platelet Estimate Decreased L Platelet Morphology Normal Hypochromasia 2+ Anisocytosis 2+ Sodium Level 142 MMOL/L (136-145) Potassium Level 2.9 MMOL/L (3.5-5.1) L Chloride Level 105 MMOL/L (98-107) Carbon Dioxide Level 19 MMOL/L (21-32) L Anion Gap 19 mmol/L (5-15) H Blood Urea Nitrogen 68 mg/dL (7-18) H Creatinine 7.5 MG/DL (0.55-1.30) H Estimat Glomerular Filtration Rate 8.6 mL/min (>60) Glucose Level 197 MG/DL (74-106) H Uric Acid 8.0 MG/DL (2.6-7.2) H Calcium Level 9.3 MG/DL (8.5-10.1) Phosphorus Level 3.8 MG/DL (2.5-4.9) Magnesium Level 2.3 MG/DL (1.8-2.4) Total Bilirubin 0.7 MG/DL (0.2-1.0) Aspartate Amino Transf (AST/SGOT) 40 U/L (15-37) H Alanine Aminotransferase (ALT/SGPT) 40 U/L (12-78) Alkaline Phosphatase 121 U/L (46-116) H Total Protein 5.5 G/DL (6.4-8.2) L Albumin 2.7 G/DL (3.4-5.0) L Globulin 2.8 g/dL Albumin/Globulin Ratio 1.0 (1.0-2.7) Microbiology Date/Time Source Procedure Growth Status 10/04/20 03:45 Sputum Gram Stain - Final Resulted 10/04/20 03:45 Sputum Sputum Culture - Preliminary NO GROWTH Resulted 10/03/20 16:00 Blood Blood Culture - Preliminary NO GROWTH AFTER 24 HOURS Resulted 10/03/20 13:40 Blood Blood Culture - Preliminary NO GROWTH AFTER 24 HOURS Resulted Intake and Output 10/04/20 10/05/20 19:00 07:00 Intake Total 1662.50 ml 1427.5 ml Output Total 90 ml 0 ml Balance 1572.50 ml 1427.5 ml IV Total 1582.50 ml 1187.5 ml Tube Feeding 80 ml 240 ml Output Urine Total 90 ml 0 ml # Bowel Movements 2 Objective Physical Exam General Appearance: lethargic Lines, tubes and drains: central line - R IJ HEENT: normocephalic, atraumatic, other - Pupils are 2 mm and sluggish reaction to light. Neck: non-tender Respiratory/Chest: lungs clear Cardiovascular/Chest: normal rate Abdomen: no mass, hypoactive bowel sounds Extremities: non-pitting Neurologic: unresponsiveness Assessment/Plan Assessment/Plan Assessment/Plan Status: unchanged Assessment/Plan: 75 y/o Male admitted to the Hospital with; # AMS # Acute encephalopathy # Acute hypoxemic respiratory failure # Respiratory acidosis. ABG monitoring. Intubation in the ER Pulmonary/ICU wtih Dr. Benavidez Renal consultation with Dr. Estrada. Add CT head wo contrast to rule out bleed vs other completing today. On route. EEG ordered today as no prior order found. Concern for anoxic brain injury. Seizure disorder # Pneumonia vs other ID consultation with Dr. Ricketts Zosyn and Vancomycin Follow up lactate and wbc, cultures Covid Ag is NEGATIVE, PCR sent and pending. PUI status # Thalassemia Recent BM biopsy which was negative per family report. [place] MR number is [id number] ( MR not linked with [facility] [place] ) Supportive care Consider Hematology follow up as needed Continue maged per neurology=Dr Carranza # FTT - anorexia and weight loss Supportive care RD consult in the next 2 days for nutrition DNR DVT ppx GI ppx R IJ line Replace KCL IV Semaj Kay MD Oct 05, 2020 17:18
--- NOTE | 2020-10-05 19:14 | NUR ---
NURSE HAND-OFF REPORT: Follow up in a.m after non tunnel cath. place and call VIP again. Latest Vital Signs: Temperature 98.6 , Pulse 63 , B/P 117 /76 , Respiratory Rate 16 , O2 SAT 100 , Mechanical Ventilator, O2 Flow Rate 100.0 . Vital Sign Comment: [] EKG Rhythm: Sinus Rhythm Rhythm change?: N MD Notified?: - MD Response: Latest Carty Fall Score: 50 Fall Risk: High Risk Safety Measures: Call light Within Reach, Bed Alarm Zone 1, Side Rails Side Rails x3, Bed position Low and Locked. Fall Precautions: Yellow Socks Door Sign Patient Fall Education Report given to Daija Gutierrez.
--- NOTE | 2020-10-05 19:32 | NUR ---
NURSE NOTES: received report form peyman clement pt orally intubated -vent o2 sat 100% no acute resp distress noted tolerated tube feeding no residual levo drip with bf 117/50 urinary output poor reposition and suction
[2020-10-05] MEDS: Dyna-Hex 2% Top Sol 2oz TOPIC SCH (20:36)
[2020-10-06] VITALS (51 sets, daily range): BP systolic 94–145; BP diastolic 62–93
[2020-10-06 05:10] LABS: HEMATOCRIT 28.5 % (42.0-52.0); HEMOGLOBIN 9.4 G/DL (14.2-18.0); MEAN CORPUSCULAR VOLUME 94 FL (80-99); PLATELET COUNT 42 K/UL (150-450); RED BLOOD COUNT 3.02 M/UL (4.70-6.10); RED CELL DISTRIBUTION WIDTH 18.4 % (11.6-14.8)
[2020-10-06] MEDS: Sodium Citrate 30ml NG SCH ×4 (05:46→23:12)
[2020-10-06] MEDS: Hydrocortisone 100mg Inj IV SCH ×3 (05:46→22:13)
[2020-10-06 06:08] LABS: ALBUMIN 2.5 G/DL (3.4-5.0); ALBUMIN/GLOBULIN RATIO 0.8 (1.0-2.7); BILIRUBIN,TOTAL 0.7 MG/DL (0.2-1.0); CALCIUM 9.1 MG/DL (8.5-10.1); CREATININE 7.5 MG/DL (0.55-1.30); POTASSIUM 3.2 MMOL/L (3.5-5.1)
[2020-10-06 06:13] LABS: PHOSPHORUS 4.4 MG/DL (2.5-4.9)
--- NOTE | 2020-10-06 07:27 | NUR ---
NURSE NOTES: Received report from KIRBY Choe. Patient is obtunded. ETT 7.5/25cm at lip line with vent setting ac 16, vt 500, fio2 40%. NGT intact and clamped. Right IJ TLC intact and running with D5 1/2NS 75ml/hr and levophed 4mcg/min. Kept dry, clean and comfortable. Will continue plan of care.
--- NOTE | 2020-10-06 07:44 | NUR ---
NURSE HAND-OFF REPORT: Latest Vital Signs: Temperature 97.8 , Pulse 71 , B/P 112 /79 , Respiratory Rate 16 , O2 SAT 100 , Mechanical Ventilator, O2 Flow Rate 100.0 . Vital Sign Comment: EKG Rhythm: Sinus Rhythm Rhythm change?: N MD Notified?: - MD Response: Latest Carty Fall Score: 50 Fall Risk: High Risk Safety Measures: Call light Within Reach, Bed Alarm Zone 1, Side Rails Side Rails x3, Bed position Low and Locked. Fall Precautions: Yellow Socks Door Sign Patient Fall Education Report given to babita clement using sbar.
[2020-10-06] MEDS: Piperacillin/Tazobactam 3.375 GM in NS 110 ML IVPB SCH ×2 (08:24→20:37)
[2020-10-06] MEDS: levETIRAcetam 500mg/NS100ml 100 ML IVPB SCH ×2 (08:24→20:36)
[2020-10-06] MEDS: D5 1/2NS 1,000 ML IV SCH (09:00)
--- NOTE | 2020-10-06 09:10 | Infectious Diseases Prog Note ---
Assessment/Plan 75 yo male with PMHx of failure to thrive, HTN, thalassemia, pancytopenia, HLD, Depression who [facility]. Septic Shock PNA Acute hypoxic resp failure sp VDRF -10/04 sp Cx - GNR -10/01 sp cx S. aureus (sensi p), K. pna (r amp; otherwise S) -09/30 COVID PCr neg -09/30 CXR: Bibasilar atelectasis versus infiltrates CXR 09/29/20 - Left basilar atelectasis. No acute process otherwise. Evidence of old granulomatous disease rapid covid ag neg S. epi bacteremia- contaminant vs real -10/03 Bcx NGTD -09/29 BCx 09/07 sets S. epi Leukocytosis; increased No fever -09/30 ucx neg AMS -CT head: New NG tube and mid to distal esophagus. Recommend advancement. Bibasilar atelectasis versus infiltrates Lactic acidosis Failure to thrive HTN Thalassemia Pancytopenia HLD Depression Adenomatous colonic polyps PLAN - Continue Zosyn #6/7 10/03/20 SP Vancomycin #3 - f/u COVID 19 Ag screen - f/u Cultures - Monitor CBC and Temps -BCx (periheral and line) 2d echo Thank you for this consult. [facility] will continue to follow Mr. Vargas while he in hospitalized. Subjective Allergies: Coded Allergies: No Known Allergies (Unverified , 09/13/20) Afebrile WBCs 15 fromn 15.8 On Vent Objective Last 24 Hour Vital Signs Date Time Temp Pulse Resp B/P (MAP) Pulse Ox O2 Delivery O2 Flow Rate FiO2 10/06/20 08:12 117/76 10/06/20 07:00 71 16 112/79 (90) 100 10/06/20 06:30 81 16 110/83 (92) 100 10/06/20 06:30 83 16 10/06/20 06:00 98 16 122/84 (97) 100 10/06/20 05:30 96 16 128/88 (101) 100 10/06/20 05:00 91 16 115/81 (92) 100 10/06/20 04:30 88 16 125/87 (100) 100 10/06/20 04:00 115/83 10/06/20 04:00 97.8 89 19 111/82 (92) 100 10/06/20 04:00 Mechanical Ventilator 10/06/20 04:00 40 10/06/20 04:00 96 10/06/20 03:30 70 16 113/78 (90) 100 10/06/20 03:30 102 17 30 10/06/20 03:00 60 16 108/74 (85) 100 10/06/20 03:00 106/63 10/06/20 02:30 62 16 112/71 (85) 100 10/06/20 02:00 61 17 113/69 (84) 100 10/06/20 02:00 116/83 10/06/20 02:00 61 17 113/69 (84) 100 10/06/20 01:45 61 16 111/69 (83) 100 10/06/20 01:30 63 16 113/76 (88) 100 10/06/20 01:30 63 16 113/76 (88) 100 10/06/20 01:15 59 16 103/71 (82) 100 10/06/20 01:00 120/74 10/06/20 01:00 60 16 115/77 (90) 100 10/06/20 01:00 60 16 115/77 (90) 100 10/06/20 00:45 70 16 117/78 (91) 100 10/06/20 00:30 64 16 116/71 (86) 100 10/06/20 00:30 64 16 116/71 (86) 100 10/06/20 00:15 66 16 120/74 (89) 100 10/06/20 00:00 40 10/06/20 00:00 86 10/06/20 00:00 Mechanical Ventilator 10/06/20 00:00 110/69 10/06/20 00:00 97.8 63 16 105/69 (81) 100 10/06/20 00:00 63 16 105/69 (81) 100 10/05/20 23:30 64 16 30 10/05/20 23:00 109/74 10/05/20 22:00 110/68 10/05/20 22:00 64 16 110/68 (82) 100 10/05/20 21:30 64 16 118/68 (85) 100 10/05/20 21:00 63 16 115/63 (80) 100 10/05/20 21:00 115/63 10/05/20 20:30 61 16 110/69 (83) 100 10/05/20 20:00 62 10/05/20 20:00 40 10/05/20 20:00 Mechanical Ventilator 10/05/20 20:00 112/67 10/05/20 20:00 97.5 73 16 112/67 (82) 100 10/05/20 19:30 58 16 113/68 (83) 100 10/05/20 19:30 57 16 30 10/05/20 19:00 63 16 117/76 (90) 100 10/05/20 19:00 117/76 10/05/20 18:00 60 16 113/79 (90) 100 10/05/20 17:00 60 16 107/74 (85) 100 10/05/20 16:00 60 10/05/20 16:00 40 10/05/20 16:00 98.6 61 17 106/75 (85) 100 10/05/20 16:00 Mechanical Ventilator 10/05/20 15:13 48 16 30 10/05/20 15:00 51 16 98/67 (77) 100 10/05/20 14:00 64 16 108/68 (81) 100 10/05/20 13:00 60 16 105/68 (80) 100 10/05/20 12:00 40 10/05/20 12:00 Mechanical Ventilator 10/05/20 12:00 98.0 60 16 109/68 (82) 100 10/05/20 12:00 61 10/05/20 12:00 40 10/05/20 11:08 100 10/05/20 11:01 82 16 30 10/05/20 11:00 83 17 118/78 (91) 100 10/05/20 10:00 71 16 107/76 (86) 100 Height (Feet): 6 Height (Inches): 8.00 Weight (Pounds): 165 Gen: Intubated on Vent satting well HEENT: NCAT, MMM, No scleral icterus Pulm: RRR No accessory muscle use Abd: Soft, ND, + BS SKIN: Exposed skin normal in color no rash noted Microbiology Date/Time Source Procedure Growth Status 10/04/20 03:45 Sputum Gram Stain - Final Resulted 10/04/20 03:45 Sputum Culture - Preliminary Gram Negative Bacillus 1 Usual Respiratory Su Resulted 10/03/20 16:00 Blood Blood Culture - Preliminary NO GROWTH AFTER 24 HOURS Resulted 10/03/20 13:40 Blood Blood Culture - Preliminary NO GROWTH AFTER 24 HOURS Resulted Laboratory Tests Test 10/06/20 04:30 White Blood Count 15.0 K/UL (4.8-10.8) H Red Blood Count 3.02 M/UL (4.70-6.10) L Hemoglobin 9.4 G/DL (14.2-18.0) L Hematocrit 28.5 % (42.0-52.0) L Mean Corpuscular Volume 94 FL (80-99) Mean Corpuscular Hemoglobin 31.1 PG (27.0-31.0) H Mean Corpuscular Hemoglobin Concent 33.0 G/DL (32.0-36.0) Red Cell Distribution Width 18.4 % (11.6-14.8) H Platelet Count 42 K/UL (150-450) L Mean Platelet Volume 13.7 FL (6.5-10.1) H Neutrophils (%) (Auto) % (45.0-75.0) Lymphocytes (%) (Auto) % (20.0-45.0) Monocytes (%) (Auto) % (1.0-10.0) Eosinophils (%) (Auto) % (0.0-3.0) Basophils (%) (Auto) % (0.0-2.0) Neutrophils % (Manual) Pending Lymphocytes % (Manual) Pending Platelet Estimate Pending Platelet Morphology Pending Sodium Level 140 MMOL/L (136-145) Potassium Level 3.2 MMOL/L (3.5-5.1) L Chloride Level 105 MMOL/L (98-107) Carbon Dioxide Level 17 MMOL/L (21-32) L Anion Gap 18 mmol/L (5-15) H Blood Urea Nitrogen 74 mg/dL (7-18) H Creatinine 7.5 MG/DL (0.55-1.30) H Estimat Glomerular Filtration Rate 8.6 mL/min (>60) Glucose Level 171 MG/DL (74-106) H Lactic Acid Level 2.60 mmol/L (0.4-2.0) H Uric Acid 8.3 MG/DL (2.6-7.2) H Calcium Level 9.1 MG/DL (8.5-10.1) Phosphorus Level 4.4 MG/DL (2.5-4.9) Magnesium Level 2.1 MG/DL (1.8-2.4) Total Bilirubin 0.7 MG/DL (0.2-1.0) Aspartate Amino Transf (AST/SGOT) 34 U/L (15-37) Alanine Aminotransferase (ALT/SGPT) 39 U/L (12-78) Alkaline Phosphatase 91 U/L (46-116) C-Reactive Protein, Quantitative 0.6 mg/dL (0.00-0.90) Pro-B-Type Natriuretic Peptide 6314 pg/mL (0-125) H Total Protein 5.5 G/DL (6.4-8.2) L Albumin 2.5 G/DL (3.4-5.0) L Globulin 3.0 g/dL Albumin/Globulin Ratio 0.8 (1.0-2.7) L Random Vancomycin Level 17.9 ug/mL Current Medications Medications (Trade) Dose Ordered Sig/Alfredo Route PRN Reason Start Time Stop Time Status Last Admin Dose Admin Acetaminophen (Tylenol) 650 mg EVERY 6 HOURS PRN NG Temp >100.5 09/30/20 02:30 10/30/20 02:29 Allopurinol (allopurinoL) 300 mg DAILY NG 10/06/20 09:00 11/04/20 08:59 10/06/20 08:24 Barium Sulfate (Readi-Cat 2) 450 ml NOW PRN ORAL Radiology Procedure 10/05/20 13:00 10/07/20 12:59 Chlorhexidine Gluconate (Babita-Hex 2%) 1 applic DAILY@2000 TOPIC 09/30/20 20:00 12/29/20 19:59 10/05/20 20:36 Dextrose (Dextrose 50%) 25 ml Q30M PRN IV Hypoglycemia 09/30/20 02:30 12/29/20 02:29 Dextrose (Dextrose 50%) 50 ml Q30M PRN IV Hypoglycemia 09/30/20 02:30 12/29/20 02:29 Dextrose/Sodium Chloride 1,000 ml @ 75 mls/hr [id number] IV 09/30/20 03:30 10/30/20 03:29 10/05/20 17:02 Famotidine (Pepcid I.v.) 20 mg DAILY IVP 09/30/20 10:00 10/30/20 09:59 10/06/20 08:23 Hydrocortisone (Solu-CORTEF) 100 mg EVERY 8 HOURS IV 09/30/20 14:00 12/29/20 13:59 10/06/20 05:46 Levetiracetam 100 ml @ 400 mls/hr Q12HR IVPB 10/02/20 09:00 12/31/20 08:59 10/06/20 08:24 Lorazepam (Ativan 2mg/ml 1ml) 1 mg Q4H PRN IV For Seizures 10/01/20 16:00 10/08/20 15:59 10/02/20 10:00 Norepinephrine Bitartrate 8 mg/ Dextrose 250 ml @ 0 mls/hr Q24H IV 10/03/20 12:45 10/06/20 12:44 10/06/20 08:12 Piperacillin Sod/ Tazobactam Sod 3.375 gm/Sodium Chloride 110 ml @ 27.5 mls/hr Q12HR IVPB 09/30/20 09:00 10/07/20 08:59 10/06/20 08:24 Sodium Citrate (Bicitra) 30 ml EVERY 6 HOURS NG 10/01/20 12:00 10/31/20 11:59 10/06/20 05:46 Vancomycin HCl ([facility] pharmacy to dose) 1 ea DAILY PRN MISC Per rx protocol 09/30/20 10:00 10/30/20 09:59 Yoel Ricketts MD Oct 06, 2020 09:10
[2020-10-06] MEDS ORDERED: Tubing IV Secondary IV ONE (09:33)
[2020-10-06] MEDS ORDERED: NS 275ml ONE (09:33)
[2020-10-06] MEDS ORDERED: D5NS 1000ml IV ONE (09:33)
[2020-10-06] MEDS ORDERED: D5 1/2NS 1000ml IV ONE (09:33)
--- NOTE | 2020-10-06 10:08 | Nephrology Progress Note ---
Assessment/Plan Problem List: (1) COURTNEY (acute kidney injury) (2) Cardiopulmonary arrest (3) Respiratory failure (4) Septic shock Assessment Acute renal failure Septic shock Acute respiratory failure CODE STATUS now DNR Plan October 06: Status unchanged. Seen in ICU. Discussed with RN. Dialysis catheter and dialysis procedure has not yet been done. Radiology to arrange for catheter insertion today followed by dialysis. Labs reviewed. Medication list reviewed. October 05: Status quo. Labs reviewed. Serum creatinine creeping up. Patient hemodynamically more stable today than a few days ago. Called brother and he is agreeable for a trial of dialysis treatment with the hope to reverse the acute component of the renal failure. Nontunneled catheter placement ordered. Dialysis ordered. Continue to monitor renal parameters. Medication list reviewed. Discussed with RN and charge nurse. October 04: Status quo. Intubated on ventilator. Labs reviewed. Serum creatinine is plateauing. Trial of Zaroxolyn and 25% albumin infusion given. Abnormal electrolytes addressed. Continue as is. October 03: Continues to be on 6 mics of Levophed. Urine output 350 cc past 24 hours. No urine output since this morning. Labs reviewed. Discussed with KIRBY Diallo. Albumin bolus given. Zaroxolyn 1 dose ordered. Serum creatinine appears to be leveling off. Continue to monitor renal parameters. Patient DNR. October 02: Remains on low-dose pressors today almost anuric. Discussed with KIRBY Shook. Labs reviewed. Medication list reviewed. Trial of albumin and Lasix. Continue to monitor renal parameters. Patient DNR. FiO2 40% October 01: Patient clinically more stable. Discussed with KIRBY Tarango. Patient off pressors. ABG improved. Serum creatinine worse. Will start the patient on Bicitra and allopurinol through NG tube. Continue to monitor renal parameters. Per orders. Patient currently DNR. Previously: Pulmonary support Pressors Antibiotics Hydrocortisone Per orders Subjective ROS Limited/Unobtainable: Yes Objective Objective Last 24 Hour Vital Signs Date Time Temp Pulse Resp B/P (MAP) Pulse Ox O2 Delivery O2 Flow Rate FiO2 10/06/20 09:30 62 16 110/80 (90) 100 10/06/20 09:00 82 16 120/82 (95) 100 10/06/20 08:30 69 16 116/81 (93) 100 10/06/20 08:12 117/76 10/06/20 08:00 97.5 67 16 117/76 (90) 100 10/06/20 08:00 Mechanical Ventilator 10/06/20 08:00 40 10/06/20 07:30 66 16 113/73 (86) 100 10/06/20 07:00 71 16 112/79 (90) 100 10/06/20 06:30 81 16 110/83 (92) 100 10/06/20 06:30 83 16 10/06/20 06:00 98 16 122/84 (97) 100 10/06/20 05:30 96 16 128/88 (101) 100 10/06/20 05:00 91 16 115/81 (92) 100 10/06/20 04:30 88 16 125/87 (100) 100 10/06/20 04:00 115/83 10/06/20 04:00 97.8 89 19 111/82 (92) 100 10/06/20 04:00 Mechanical Ventilator 10/06/20 04:00 40 10/06/20 04:00 96 10/06/20 03:30 70 16 113/78 (90) 100 10/06/20 03:30 102 17 30 10/06/20 03:00 60 16 108/74 (85) 100 10/06/20 03:00 106/63 10/06/20 02:30 62 16 112/71 (85) 100 10/06/20 02:00 61 17 113/69 (84) 100 10/06/20 02:00 116/83 10/06/20 02:00 61 17 113/69 (84) 100 10/06/20 01:45 61 16 111/69 (83) 100 10/06/20 01:30 63 16 113/76 (88) 100 10/06/20 01:30 63 16 113/76 (88) 100 10/06/20 01:15 59 16 103/71 (82) 100 10/06/20 01:00 120/74 10/06/20 01:00 60 16 115/77 (90) 100 10/06/20 01:00 60 16 115/77 (90) 100 10/06/20 00:45 70 16 117/78 (91) 100 10/06/20 00:30 64 16 116/71 (86) 100 10/06/20 00:30 64 16 116/71 (86) 100 10/06/20 00:15 66 16 120/74 (89) 100 10/06/20 00:00 40 10/06/20 00:00 86 10/06/20 00:00 Mechanical Ventilator 10/06/20 00:00 110/69 10/06/20 00:00 97.8 63 16 105/69 (81) 100 10/06/20 00:00 63 16 105/69 (81) 100 10/05/20 23:30 64 16 30 10/05/20 23:00 109/74 10/05/20 22:00 110/68 10/05/20 22:00 64 16 110/68 (82) 100 10/05/20 21:30 64 16 118/68 (85) 100 10/05/20 21:00 63 16 115/63 (80) 100 10/05/20 21:00 115/63 10/05/20 20:30 61 16 110/69 (83) 100 10/05/20 20:00 62 10/05/20 20:00 40 10/05/20 20:00 Mechanical Ventilator 10/05/20 20:00 112/67 10/05/20 20:00 97.5 73 16 112/67 (82) 100 10/05/20 19:30 58 16 113/68 (83) 100 10/05/20 19:30 57 16 30 10/05/20 19:00 63 16 117/76 (90) 100 10/05/20 19:00 117/76 10/05/20 18:00 60 16 113/79 (90) 100 10/05/20 17:00 60 16 107/74 (85) 100 10/05/20 16:00 60 10/05/20 16:00 40 10/05/20 16:00 98.6 61 17 106/75 (85) 100 10/05/20 16:00 Mechanical Ventilator 10/05/20 15:13 48 16 30 10/05/20 15:00 51 16 98/67 (77) 100 10/05/20 14:00 64 16 108/68 (81) 100 10/05/20 13:00 60 16 105/68 (80) 100 10/05/20 12:00 40 10/05/20 12:00 Mechanical Ventilator 10/05/20 12:00 98.0 60 16 109/68 (82) 100 10/05/20 12:00 61 10/05/20 12:00 40 10/05/20 11:08 100 10/05/20 11:01 82 16 30 10/05/20 11:00 83 17 118/78 (91) 100 Intake and Output 10/05/20 10/06/20 19:00 07:00 Intake Total 1070.0 ml 952.7 ml Output Total 100 ml 30 ml Balance 970.0 ml 922.7 ml IV Total 990.0 ml 952.7 ml Tube Feeding 80 ml Output Urine Total 100 ml 30 ml # Bowel Movements 1 Current Medications Medications (Trade) Dose Ordered Sig/Alfredo Route PRN Reason Start Time Stop Time Status Last Admin Dose Admin Acetaminophen (Tylenol) 650 mg EVERY 6 HOURS PRN NG Temp >100.5 09/30/20 02:30 10/30/20 02:29 Allopurinol (allopurinoL) 300 mg DAILY NG 10/06/20 09:00 11/04/20 08:59 10/06/20 08:24 Barium Sulfate (Readi-Cat 2) 450 ml NOW PRN ORAL Radiology Procedure 10/05/20 13:00 10/07/20 12:59 Chlorhexidine Gluconate (Babita-Hex 2%) 1 applic DAILY@2000 TOPIC 09/30/20 20:00 12/29/20 19:59 10/05/20 20:36 Dextrose (Dextrose 50%) 25 ml Q30M PRN IV Hypoglycemia 09/30/20 02:30 12/29/20 02:29 Dextrose (Dextrose 50%) 50 ml Q30M PRN IV Hypoglycemia 09/30/20 02:30 12/29/20 02:29 Dextrose/Sodium Chloride 1,000 ml @ 75 mls/hr [id number] IV 09/30/20 03:30 10/30/20 03:29 10/05/20 17:02 Famotidine (Pepcid I.v.) 20 mg DAILY IVP 09/30/20 10:00 10/30/20 09:59 10/06/20 08:23 Hydrocortisone (Solu-CORTEF) 100 mg EVERY 8 HOURS IV 09/30/20 14:00 12/29/20 13:59 10/06/20 05:46 Levetiracetam 100 ml @ 400 mls/hr Q12HR IVPB 10/02/20 09:00 12/31/20 08:59 10/06/20 08:24 Lorazepam (Ativan 2mg/ml 1ml) 1 mg Q4H PRN IV For Seizures 10/01/20 16:00 10/08/20 15:59 10/02/20 10:00 Norepinephrine Bitartrate 8 mg/ Dextrose 250 ml @ 0 mls/hr Q24H IV 10/03/20 12:45 10/06/20 12:44 10/06/20 08:12 Piperacillin Sod/ Tazobactam Sod 3.375 gm/Sodium Chloride 110 ml @ 27.5 mls/hr Q12HR IVPB 09/30/20 09:00 10/07/20 08:59 10/06/20 08:24 Sodium Citrate (Bicitra) 30 ml EVERY 6 HOURS NG 10/01/20 12:00 10/31/20 11:59 10/06/20 05:46 Vancomycin HCl ([facility] pharmacy to dose) 1 ea DAILY PRN MISC Per rx protocol 09/30/20 10:00 10/30/20 09:59 Laboratory Tests 10/06/20 04:30: White Blood Count 15.0H, Red Blood Count 3.02L, Hemoglobin 9.4L, Hematocrit 28.5L, Mean Corpuscular Volume 94, Mean Corpuscular Hemoglobin 31.1H, Mean Corpuscular Hemoglobin Concent 33.0, Red Cell Distribution Width 18.4H, Platelet Count 42L, Mean Platelet Volume 13.7H, Neutrophils (%) (Auto) , Lymphocytes (%) (Auto) , Monocytes (%) (Auto) , Eosinophils (%) (Auto) , Basophils (%) (Auto) , Differential Total Cells Counted 100, Neutrophils % (Manual) 79H, Lymphocytes % (Manual) 10L, Monocytes % (Manual) 4, Eosinophils % (Manual) 0, Basophils % (Manual) 1, Band Neutrophils 6, Platelet Estimate DecreasedL, Platelet Morphology Normal, Hypochromasia 1+, Anisocytosis 1+, Sodium Level 140, Pota ssium Level 3.2L, Chloride Level 105, Carbon Dioxide Level 17L, Anion Gap 18H, Blood Urea Nitrogen 74H, Creatinine 7.5H, Estimat Glomerular Filtration Rate 8.6, Glucose Level 171H, Lactic Acid Level 2.60H, Uric Acid 8.3H, Calcium Level 9.1, Phosphorus Level 4.4, Magnesium Level 2.1, Total Bilirubin 0.7, Aspartate Amino Transf (AST/SGOT) 34, Alanine Aminotransferase (ALT/SGPT) 39, Alkaline Phosphatase 91, C-Reactive Protein, Quantitative 0.6, Pro-B-Type Natriuretic Pep tide 6314H, Total Protein 5.5L, Albumin 2.5L, Globulin 3.0, Albumin/Globulin Ratio 0.8L, Random Vancomycin Level 17.9 Height (Feet): 6 Height (Inches): 8.00 Weight (Pounds): 165 General Appearance: no apparent distress EENT: other - Intubated on ventilator Cardiovascular: normal rate Respiratory/Chest: decreased breath sounds Abdomen: distended Angel Whitehead MD Oct 06, 2020 10:08
--- NOTE | 2020-10-06 10:16 | NUR ---
NURSE NOTES: Seen by Dr. Benavidez and assessed patient. No new order at this time.
--- NOTE | 2020-10-06 10:24 | Pulmonology Progress Note ---
Subjective ROS Limited/Unobtainable: Yes Interval Events: No change; remains intubated Constitutional: Reports: no symptoms HEENT: Repors: no symptoms Respiratory: Reports: no symptoms Cardiovascular: Reports: no symptoms Gastrointestinal/Abdominal: Reports: no symptoms Genitourinary: Reports: no symptoms Allergies: Coded Allergies: No Known Allergies (Unverified , 09/13/20) Objective Last 24 Hour Vital Signs Date Time Temp Pulse Resp B/P (MAP) Pulse Ox O2 Delivery O2 Flow Rate FiO2 10/06/20 09:30 62 16 110/80 (90) 100 10/06/20 09:00 82 16 120/82 (95) 100 10/06/20 08:30 69 16 116/81 (93) 100 10/06/20 08:12 117/76 10/06/20 08:00 97.5 67 16 117/76 (90) 100 10/06/20 08:00 Mechanical Ventilator 10/06/20 08:00 40 10/06/20 07:56 65 16 30 10/06/20 07:30 66 16 113/73 (86) 100 10/06/20 07:00 71 16 112/79 (90) 100 10/06/20 06:30 81 16 110/83 (92) 100 10/06/20 06:30 83 16 10/06/20 06:00 98 16 122/84 (97) 100 10/06/20 05:30 96 16 128/88 (101) 100 10/06/20 05:00 91 16 115/81 (92) 100 10/06/20 04:30 88 16 125/87 (100) 100 10/06/20 04:00 115/83 10/06/20 04:00 97.8 89 19 111/82 (92) 100 10/06/20 04:00 Mechanical Ventilator 10/06/20 04:00 40 10/06/20 04:00 96 10/06/20 03:30 70 16 113/78 (90) 100 10/06/20 03:30 102 17 30 10/06/20 03:00 60 16 108/74 (85) 100 10/06/20 03:00 106/63 10/06/20 02:30 62 16 112/71 (85) 100 10/06/20 02:00 61 17 113/69 (84) 100 10/06/20 02:00 116/83 10/06/20 02:00 61 17 113/69 (84) 100 10/06/20 01:45 61 16 111/69 (83) 100 10/06/20 01:30 63 16 113/76 (88) 100 10/06/20 01:30 63 16 113/76 (88) 100 10/06/20 01:15 59 16 103/71 (82) 100 10/06/20 01:00 120/74 10/06/20 01:00 60 16 115/77 (90) 100 10/06/20 01:00 60 16 115/77 (90) 100 10/06/20 00:45 70 16 117/78 (91) 100 10/06/20 00:30 64 16 116/71 (86) 100 10/06/20 00:30 64 16 116/71 (86) 100 10/06/20 00:15 66 16 120/74 (89) 100 10/06/20 00:00 40 10/06/20 00:00 86 10/06/20 00:00 Mechanical Ventilator 10/06/20 00:00 110/69 10/06/20 00:00 97.8 63 16 105/69 (81) 100 10/06/20 00:00 63 16 105/69 (81) 100 10/05/20 23:30 64 16 30 10/05/20 23:00 109/74 10/05/20 22:00 110/68 10/05/20 22:00 64 16 110/68 (82) 100 10/05/20 21:30 64 16 118/68 (85) 100 10/05/20 21:00 63 16 115/63 (80) 100 10/05/20 21:00 115/63 10/05/20 20:30 61 16 110/69 (83) 100 10/05/20 20:00 62 10/05/20 20:00 40 10/05/20 20:00 Mechanical Ventilator 10/05/20 20:00 112/67 10/05/20 20:00 97.5 73 16 112/67 (82) 100 10/05/20 19:30 58 16 113/68 (83) 100 10/05/20 19:30 57 16 30 10/05/20 19:00 63 16 117/76 (90) 100 10/05/20 19:00 117/76 10/05/20 18:00 60 16 113/79 (90) 100 10/05/20 17:00 60 16 107/74 (85) 100 10/05/20 16:00 60 10/05/20 16:00 40 10/05/20 16:00 98.6 61 17 106/75 (85) 100 10/05/20 16:00 Mechanical Ventilator 10/05/20 15:13 48 16 30 10/05/20 15:00 51 16 98/67 (77) 100 10/05/20 14:00 64 16 108/68 (81) 100 10/05/20 13:00 60 16 105/68 (80) 100 10/05/20 12:00 40 10/05/20 12:00 Mechanical Ventilator 10/05/20 12:00 98.0 60 16 109/68 (82) 100 10/05/20 12:00 61 10/05/20 12:00 40 10/05/20 11:08 100 10/05/20 11:01 82 16 30 10/05/20 11:00 83 17 118/78 (91) 100 Intake and Output 10/05/20 10/06/20 19:00 07:00 Intake Total 1070.0 ml 952.7 ml Output Total 100 ml 30 ml Balance 970.0 ml 922.7 ml IV Total 990.0 ml 952.7 ml Tube Feeding 80 ml Output Urine Total 100 ml 30 ml # Bowel Movements 1 General Appearance: no acute distress HEENT: normocephalic Respiratory: chest wall non-tender Cardiovascular: normal peripheral pulses Abdomen: normal bowel sounds Microbiology Date/Time Source Procedure Growth Status 10/04/20 03:45 Sputum Gram Stain - Final Resulted 10/04/20 03:45 Sputum Culture - Preliminary Gram Negative Bacillus 1 Usual Respiratory Su Resulted 10/03/20 16:00 Blood Blood Culture - Preliminary NO GROWTH AFTER 24 HOURS Resulted 10/03/20 13:40 Blood Blood Culture - Preliminary NO GROWTH AFTER 24 HOURS Resulted Laboratory Tests 10/06/20 04:30: White Blood Count 15.0H, Red Blood Count 3.02L, Hemoglobin 9.4L, Hematocrit 28.5L, Mean Corpuscular Volume 94, Mean Corpuscular Hemoglobin 31.1H, Mean Corpuscular Hemoglobin Concent 33.0, Red Cell Distribution Width 18.4H, Platelet Count 42L, Mean Platelet Volume 13.7H, Neutrophils (%) (Auto) , Lymphocytes (%) (Auto) , Monocytes (%) (Auto) , Eosinophils (%) (Auto) , Basophils (%) (Auto) , Differential Total Cells Counted 100, Neutrophils % (Manual) 79H, Lymphocytes % (Manual) 10L, Monocytes % (Manual) 4, Eosinophils % (Manual) 0, Basophils % (Manual) 1, Band Neutrophils 6, Platelet Estimate DecreasedL, Platelet Morphology Normal, Hypochromasia 1+, Anisocytosis 1+, Sodium Level 140, Potas sium Level 3.2L, Chloride Level 105, Carbon Dioxide Level 17L, Anion Gap 18H, Blood Urea Nitrogen 74H, Creatinine 7.5H, Estimat Glomerular Filtration Rate 8.6, Glucose Level 171H, Lactic Acid Level 2.60H, Uric Acid 8.3H, Calcium Level 9.1, Phosphorus Level 4.4, Magnesium Level 2.1, Total Bilirubin 0.7, Aspartate Amino Transf (AST/SGOT) 34, Alanine Aminotransferase (ALT/SGPT) 39, Alkaline Phosphatase 91, C-Reactive Protein, Quantitative 0.6, Pro-B-Type Natriuretic Peptide 6314H, Total Protein 5.5L, Albumin 2.5L, Globulin 3.0, Albumin/Globulin Ratio 0.8L, Random Vancomycin Level 17.9 Current Medications Medications (Trade) Dose Ordered Sig/Alfredo Route PRN Reason Start Time Stop Time Status Last Admin Dose Admin Acetaminophen (Tylenol) 650 mg EVERY 6 HOURS PRN NG Temp >100.5 09/30/20 02:30 10/30/20 02:29 Allopurinol (allopurinoL) 300 mg DAILY NG 10/06/20 09:00 11/04/20 08:59 10/06/20 08:24 Barium Sulfate (Readi-Cat 2) 450 ml NOW PRN ORAL Radiology Procedure 10/05/20 13:00 10/07/20 12:59 Chlorhexidine Gluconate (Babita-Hex 2%) 1 applic DAILY@1999 TOPIC 09/30/20 20:00 12/29/20 19:59 10/05/20 20:36 Dextrose (Dextrose 50%) 25 ml Q30M PRN IV Hypoglycemia 09/30/20 02:30 12/29/20 02:29 Dextrose (Dextrose 50%) 50 ml Q30M PRN IV Hypoglycemia 09/30/20 02:30 12/29/20 02:29 Dextrose/Sodium Chloride 1,000 ml @ 75 mls/hr [id number] IV 09/30/20 03:30 10/30/20 03:29 10/05/20 17:02 Famotidine (Pepcid I.v.) 20 mg DAILY IVP 09/30/20 10:00 10/30/20 09:59 10/06/20 08:23 Hydrocortisone (Solu-CORTEF) 100 mg EVERY 8 HOURS IV 09/30/20 14:00 12/29/20 13:59 10/06/20 05:46 Levetiracetam 100 ml @ 400 mls/hr Q12HR IVPB 10/02/20 09:00 12/31/20 08:59 10/06/20 08:24 Lorazepam (Ativan 2mg/ml 1ml) 1 mg Q4H PRN IV For Seizures 10/01/20 16:00 10/08/20 15:59 10/02/20 10:00 Norepinephrine Bitartrate 8 mg/ Dextrose 250 ml @ 0 mls/hr Q24H IV 10/03/20 12:45 10/06/20 12:44 10/06/20 08:12 Piperacillin Sod/ Tazobactam Sod 3.375 gm/Sodium Chloride 110 ml @ 27.5 mls/hr Q12HR IVPB 09/30/20 09:00 10/07/20 08:59 10/06/20 08:24 Sodium Citrate (Bicitra) 30 ml EVERY 6 HOURS NG 10/01/20 12:00 10/31/20 11:59 10/06/20 05:46 Vancomycin HCl ([facility] pharmacy to dose) 1 ea DAILY PRN MISC Per rx protocol 09/30/20 10:00 10/30/20 09:59 Assessment/Plan Assessment/Plan IMPRESSION: 1. Respiratory failure. 2. Multiple medical problems consisting of hypertension, thalassemia, chronic pancreatitis, GERD, neuropathy, and depression. 3. Shock; on pressors 4. Acute renal failure and metabolic acidosis 5. Lactic acidemia 6. AMS; CT brain negative DISCUSSION: Code status needs to be discussed with family. Currently the patient is intubated. Dialysis being considered; planned for today I will continue AC mode. Wean as tolerated but will not extubate till more awake and off pressors Continue IV fluids. Pressors prn DVT and GI prophylaxis. Broad-spectrum antibiotics. I will follow carefully. Bicarb supplementation ABG adequate Dennis Benavidez M.D. Dennis Benavidez MD Oct 06, 2020 10:24
--- NOTE | 2020-10-06 12:00 | NUR ---
NURSE NOTES: Seen by Dr. Lyles and assessed patient.
--- NOTE | 2020-10-06 12:02 | General Progress Note ---
Subjective ROS Limited/Unobtainable: No Allergies: Coded Allergies: No Known Allergies (Unverified , 09/13/20) Objective Last 24 Hour Vital Signs Date Time Temp Pulse Resp B/P (MAP) Pulse Ox O2 Delivery O2 Flow Rate FiO2 10/06/20 09:30 62 16 110/80 (90) 100 10/06/20 09:00 82 16 120/82 (95) 100 10/06/20 08:30 69 16 116/81 (93) 100 10/06/20 08:12 117/76 10/06/20 08:00 97.5 67 16 117/76 (90) 100 10/06/20 08:00 Mechanical Ventilator 10/06/20 08:00 40 10/06/20 07:56 65 16 30 10/06/20 07:30 66 16 113/73 (86) 100 10/06/20 07:00 71 16 112/79 (90) 100 10/06/20 06:30 81 16 110/83 (92) 100 10/06/20 06:30 83 16 10/06/20 06:00 98 16 122/84 (97) 100 10/06/20 05:30 96 16 128/88 (101) 100 10/06/20 05:00 91 16 115/81 (92) 100 10/06/20 04:30 88 16 125/87 (100) 100 10/06/20 04:00 115/83 10/06/20 04:00 97.8 89 19 111/82 (92) 100 10/06/20 04:00 Mechanical Ventilator 10/06/20 04:00 40 10/06/20 04:00 96 10/06/20 03:30 70 16 113/78 (90) 100 10/06/20 03:30 102 17 30 10/06/20 03:00 60 16 108/74 (85) 100 10/06/20 03:00 106/63 10/06/20 02:30 62 16 112/71 (85) 100 10/06/20 02:00 61 17 113/69 (84) 100 10/06/20 02:00 116/83 10/06/20 02:00 61 17 113/69 (84) 100 10/06/20 01:45 61 16 111/69 (83) 100 10/06/20 01:30 63 16 113/76 (88) 100 10/06/20 01:30 63 16 113/76 (88) 100 10/06/20 01:15 59 16 103/71 (82) 100 10/06/20 01:00 120/74 10/06/20 01:00 60 16 115/77 (90) 100 10/06/20 01:00 60 16 115/77 (90) 100 10/06/20 00:45 70 16 117/78 (91) 100 10/06/20 00:30 64 16 116/71 (86) 100 10/06/20 00:30 64 16 116/71 (86) 100 10/06/20 00:15 66 16 120/74 (89) 100 10/06/20 00:00 40 10/06/20 00:00 86 10/06/20 00:00 Mechanical Ventilator 10/06/20 00:00 110/69 10/06/20 00:00 97.8 63 16 105/69 (81) 100 10/06/20 00:00 63 16 105/69 (81) 100 10/05/20 23:30 64 16 30 10/05/20 23:00 109/74 10/05/20 22:00 110/68 10/05/20 22:00 64 16 110/68 (82) 100 10/05/20 21:30 64 16 118/68 (85) 100 10/05/20 21:00 63 16 115/63 (80) 100 10/05/20 21:00 115/63 10/05/20 20:30 61 16 110/69 (83) 100 10/05/20 20:00 62 10/05/20 20:00 40 10/05/20 20:00 Mechanical Ventilator 10/05/20 20:00 112/67 10/05/20 20:00 97.5 73 16 112/67 (82) 100 10/05/20 19:30 58 16 113/68 (83) 100 10/05/20 19:30 57 16 30 10/05/20 19:00 63 16 117/76 (90) 100 10/05/20 19:00 117/76 10/05/20 18:00 60 16 113/79 (90) 100 10/05/20 17:00 60 16 107/74 (85) 100 10/05/20 16:00 60 10/05/20 16:00 40 10/05/20 16:00 98.6 61 17 106/75 (85) 100 10/05/20 16:00 Mechanical Ventilator 10/05/20 15:13 48 16 30 10/05/20 15:00 51 16 98/67 (77) 100 10/05/20 14:00 64 16 108/68 (81) 100 10/05/20 13:00 60 16 105/68 (80) 100 Intake and Output 10/05/20 10/06/20 19:00 07:00 Intake Total 1070.0 ml 952.7 ml Output Total 100 ml 30 ml Balance 970.0 ml 922.7 ml IV Total 990.0 ml 952.7 ml Tube Feeding 80 ml Output Urine Total 100 ml 30 ml # Bowel Movements 1 Laboratory Tests 10/06/20 04:30: White Blood Count 15.0H, Red Blood Count 3.02L, Hemoglobin 9.4L, Hematocrit 28.5L, Mean Corpuscular Volume 94, Mean Corpuscular Hemoglobin 31.1H, Mean Corpuscular Hemoglobin Concent 33.0, Red Cell Distribution Width 18.4H, Platelet Count 42L, Mean Platelet Volume 13.7H, Neutrophils (%) (Auto) , Lymphocytes (%) (Auto) , Monocytes (%) (Auto) , Eosinophils (%) (Auto) , Basophils (%) (Auto) , Differential Total Cells Counted 100, Neutrophils % (Manual) 79H, Lymphocytes % (Manual) 10L, Monocytes % (Manual) 4, Eosinophils % (Manual) 0, Basophils % (Manual) 1, Band Neutrophils 6, Platelet Estimate DecreasedL, Platelet Morphology Normal, Hypochromasia 1+, Anisocytosis 1+, Sodium Level 140, Potassium Level 3.2L, Chloride Level 105, Carbon Dioxide Level 17L, Anion Gap 18H, Blood Urea Nitrogen 74H, Creatinine 7.5H, Estimat Glomerular Filtration Rate 8.6, Glucose Level 171H, Lactic Acid Level 2.60H, Uric Acid 8.3H, Calcium Level 9.1, Phosphorus Level 4.4, Magnesium Level 2.1, Total Bilirubin 0.7, Aspa rtate Amino Transf (AST/SGOT) 34, Alanine Aminotransferase (ALT/SGPT) 39, Alkaline Phosphatase 91, C-Reactive Protein, Quantitative 0.6, Pro-B-Type Natriuretic Peptide 6314H, Total Protein 5.5L, Albumin 2.5L, Globulin 3.0, Albumin/Globulin Ratio 0.8L, Random Vancomycin Level 17.9 Height (Feet): 6 Height (Inches): 8.00 Weight (Pounds): 165 General Appearance: lethargic EENT: normal ENT inspection Neck: supple Cardiovascular: normal rate Respiratory/Chest: decreased breath sounds Abdomen: hypoactive bowel sounds, distended Extremities: non-tender Assessment/Plan Status: unchanged Assessment/Plan: 1. History of thalassemia. 2. Hypertension. 3. Chronic pancreatitis. 4. Dyslipidemia. 5. Atherosclerosis. 6. GERD. 7. Renal cyst. 8. Peripheral neuropathy. 9. History of colonic polyps. 10. Depression. 11. respiratory failure 12. renal failure 13 anemia 14. ? ileus ngt to suction had BM pending HD daily exam kub CT when more stable Nando Lyles MD Oct 06, 2020 12:02
--- NOTE | 2020-10-06 12:03 | Neurology Progress Note ---
Interim History Interim History ROS Limited/Unobtainable: Yes Events: plan for HD, pt still unresponsive Objective Physical Exam Last Vital Signs Date Time Temp Pulse Resp B/P (MAP) Pulse Ox O2 Delivery O2 Flow Rate FiO2 10/06/20 09:30 62 16 110/80 (90) 100 10/06/20 08:00 97.5 10/06/20 08:00 Mechanical Ventilator 10/06/20 08:00 40 10/01/20 04:00 100.0 Laboratory Tests Test 10/06/20 04:30 White Blood Count 15.0 K/UL (4.8-10.8) H Red Blood Count 3.02 M/UL (4.70-6.10) L Hemoglobin 9.4 G/DL (14.2-18.0) L Hematocrit 28.5 % (42.0-52.0) L Mean Corpuscular Volume 94 FL (80-99) Mean Corpuscular Hemoglobin 31.1 PG (27.0-31.0) H Mean Corpuscular Hemoglobin Concent 33.0 G/DL (32.0-36.0) Red Cell Distribution Width 18.4 % (11.6-14.8) H Platelet Count 42 K/UL (150-450) L Mean Platelet Volume 13.7 FL (6.5-10.1) H Neutrophils (%) (Auto) % (45.0-75.0) Lymphocytes (%) (Auto) % (20.0-45.0) Monocytes (%) (Auto) % (1.0-10.0) Eosinophils (%) (Auto) % (0.0-3.0) Basophils (%) (Auto) % (0.0-2.0) Differential Total Cells Counted 100 Neutrophils % (Manual) 79 % (45-75) H Lymphocytes % (Manual) 10 % (20-45) L Monocytes % (Manual) 4 % (1-10) Eosinophils % (Manual) 0 % (0-3) Basophils % (Manual) 1 % (0-2) Band Neutrophils 6 % (0-8) Platelet Estimate Decreased L Platelet Morphology Normal Hypochromasia 1+ Anisocytosis 1+ Sodium Level 140 MMOL/L (136-145) Potassium Level 3.2 MMOL/L (3.5-5.1) L Chloride Level 105 MMOL/L (98-107) Carbon Dioxide Level 17 MMOL/L (21-32) L Anion Gap 18 mmol/L (5-15) H Blood Urea Nitrogen 74 mg/dL (7-18) H Creatinine 7.5 MG/DL (0.55-1.30) H Estimat Glomerular Filtration Rate 8.6 mL/min (>60) Glucose Level 171 MG/DL (74-106) H Lactic Acid Level 2.60 mmol/L (0.4-2.0) H Uric Acid 8.3 MG/DL (2.6-7.2) H Calcium Level 9.1 MG/DL (8.5-10.1) Phosphorus Level 4.4 MG/DL (2.5-4.9) Magnesium Level 2.1 MG/DL (1.8-2.4) Total Bilirubin 0.7 MG/DL (0.2-1.0) Aspartate Amino Transf (AST/SGOT) 34 U/L (15-37) Alanine Aminotransferase (ALT/SGPT) 39 U/L (12-78) Alkaline Phosphatase 91 U/L (46-116) C-Reactive Protein, Quantitative 0.6 mg/dL (0.00-0.90) Pro-B-Type Natriuretic Peptide 6314 pg/mL (0-125) H Total Protein 5.5 G/DL (6.4-8.2) L Albumin 2.5 G/DL (3.4-5.0) L Globulin 3.0 g/dL Albumin/Globulin Ratio 0.8 (1.0-2.7) L Random Vancomycin Level 17.9 ug/mL Neurologic Exam Objective Physical Exam: Limited due to patients status unresponsive comatose, Pupils are sluggish, pupils equal reactive to light corneal reflex absent, gag reflex absent facial symmetric motor: no spontaneous movement in extremities, sensory response does not withdraw to pain Impression/Recommendations Status: unchanged Diagnostic Impression Imaging: EEG reviewed CT Head: No evidence of acute intracranial hemorrhage, mass effect or cortical edema. MRI recommended for more sensitive evaluation as clinically indicated. Atrophy and nonspecific periventricular hypoattenuation suggestive of chronic ischemic microvascular changes. Assessment And Rec's 1. Anoxic Encephalopathy --> EEG revealed short waves consistent with seizure activity --> S/p recent CODE Blue and intubation --> CT head reviewed as above 2. Abnormal EEG --> Possible subclinical seizure activity, it is not definitive --> Will start patient on presumptive seizure medication, Agree to continue with Keppra 500mg IV BID 3. Acute hypoxemic respiratory failure --> s/p intubation on vent 4. Questionable Pneumonia vs other ---> on abx Covid Ag is NEGATIVE, PCR sent and pending. PUI status 5. Anemia 6. FTT --> Supportive care Thank you for allowing us to participate in patient's care, plan of care was discussed with Dr. Jose Armando Camarena who agrees and has reviewed EEG results. Stacy Hinds NP Oct 06, 2020 12:03
[2020-10-06] MEDS ORDERED: Lidocaine 1% Plain 30 ml INJ PRN (12:30)
[2020-10-06] MEDS ORDERED: Heparin1,000 units/500ml Premix(Conc:2 units/ml) INJ PRN (12:30)
--- NOTE | 2020-10-06 13:29 | NUR ---
RADIOLOGY DEPT., ABDOMEN X-RAY DONE.-P.DYE
--- NOTE | 2020-10-06 13:43 | Surgery Progress Note ---
Surgery Progress Note Subjective Additional Comments ill appearing on support no nresponsive no n/v Objective Last 24 Hour Vital Signs Date Time Temp Pulse Resp B/P (MAP) Pulse Ox O2 Delivery O2 Flow Rate FiO2 10/06/20 11:25 88 16 30 10/06/20 09:30 62 16 110/80 (90) 100 10/06/20 09:00 82 16 120/82 (95) 100 10/06/20 08:30 69 16 116/81 (93) 100 10/06/20 08:12 117/76 10/06/20 08:00 97.5 67 16 117/76 (90) 100 10/06/20 08:00 Mechanical Ventilator 10/06/20 08:00 40 10/06/20 07:56 65 16 30 10/06/20 07:30 66 16 113/73 (86) 100 10/06/20 07:00 71 16 112/79 (90) 100 10/06/20 06:30 81 16 110/83 (92) 100 10/06/20 06:30 83 16 10/06/20 06:00 98 16 122/84 (97) 100 10/06/20 05:30 96 16 128/88 (101) 100 10/06/20 05:00 91 16 115/81 (92) 100 10/06/20 04:30 88 16 125/87 (100) 100 10/06/20 04:00 115/83 10/06/20 04:00 97.8 89 19 111/82 (92) 100 10/06/20 04:00 Mechanical Ventilator 10/06/20 04:00 40 10/06/20 04:00 96 10/06/20 03:30 70 16 113/78 (90) 100 10/06/20 03:30 102 17 30 10/06/20 03:00 60 16 108/74 (85) 100 10/06/20 03:00 106/63 10/06/20 02:30 62 16 112/71 (85) 100 10/06/20 02:00 61 17 113/69 (84) 100 10/06/20 02:00 116/83 10/06/20 02:00 61 17 113/69 (84) 100 10/06/20 01:45 61 16 111/69 (83) 100 10/06/20 01:30 63 16 113/76 (88) 100 10/06/20 01:30 63 16 113/76 (88) 100 10/06/20 01:15 59 16 103/71 (82) 100 10/06/20 01:00 120/74 10/06/20 01:00 60 16 115/77 (90) 100 10/06/20 01:00 60 16 115/77 (90) 100 10/06/20 00:45 70 16 117/78 (91) 100 10/06/20 00:30 64 16 116/71 (86) 100 10/06/20 00:30 64 16 116/71 (86) 100 10/06/20 00:15 66 16 120/74 (89) 100 10/06/20 00:00 40 10/06/20 00:00 86 10/06/20 00:00 Mechanical Ventilator 10/06/20 00:00 110/69 10/06/20 00:00 97.8 63 16 105/69 (81) 100 10/06/20 00:00 63 16 105/69 (81) 100 10/05/20 23:30 64 16 30 10/05/20 23:00 109/74 10/05/20 22:00 110/68 10/05/20 22:00 64 16 110/68 (82) 100 10/05/20 21:30 64 16 118/68 (85) 100 10/05/20 21:00 63 16 115/63 (80) 100 10/05/20 21:00 115/63 10/05/20 20:30 61 16 110/69 (83) 100 10/05/20 20:00 62 10/05/20 20:00 40 10/05/20 20:00 Mechanical Ventilator 10/05/20 20:00 112/67 10/05/20 20:00 97.5 73 16 112/67 (82) 100 10/05/20 19:30 58 16 113/68 (83) 100 10/05/20 19:30 57 16 30 10/05/20 19:00 63 16 117/76 (90) 100 10/05/20 19:00 117/76 10/05/20 18:00 60 16 113/79 (90) 100 10/05/20 17:00 60 16 107/74 (85) 100 10/05/20 16:00 60 10/05/20 16:00 40 10/05/20 16:00 98.6 61 17 106/75 (85) 100 10/05/20 16:00 Mechanical Ventilator 10/05/20 15:13 48 16 30 10/05/20 15:00 51 16 98/67 (77) 100 10/05/20 14:00 64 16 108/68 (81) 100 I&O Intake and Output 10/05/20 10/06/20 19:00 07:00 Intake Total 1070.0 ml 952.7 ml Output Total 100 ml 30 ml Balance 970.0 ml 922.7 ml IV Total 990.0 ml 952.7 ml Tube Feeding 80 ml Output Urine Total 100 ml 30 ml # Bowel Movements 1 Dressing: saturated Cardiovascular: RSR Respiratory: decreased breath sounds Abdomen: soft, non-tender, present bowel sounds, non-distended Extremities: no tenderness, no cyanosis Laboratory Tests Test 10/06/20 04:30 White Blood Count 15.0 K/UL (4.8-10.8) H Red Blood Count 3.02 M/UL (4.70-6.10) L Hemoglobin 9.4 G/DL (14.2-18.0) L Hematocrit 28.5 % (42.0-52.0) L Mean Corpuscular Volume 94 FL (80-99) Mean Corpuscular Hemoglobin 31.1 PG (27.0-31.0) H Mean Corpuscular Hemoglobin Concent 33.0 G/DL (32.0-36.0) Red Cell Distribution Width 18.4 % (11.6-14.8) H Platelet Count 42 K/UL (150-450) L Mean Platelet Volume 13.7 FL (6.5-10.1) H Neutrophils (%) (Auto) % (45.0-75.0) Lymphocytes (%) (Auto) % (20.0-45.0) Monocytes (%) (Auto) % (1.0-10.0) Eosinophils (%) (Auto) % (0.0-3.0) Basophils (%) (Auto) % (0.0-2.0) Differential Total Cells Counted 100 Neutrophils % (Manual) 79 % (45-75) H Lymphocytes % (Manual) 10 % (20-45) L Monocytes % (Manual) 4 % (1-10) Eosinophils % (Manual) 0 % (0-3) Basophils % (Manual) 1 % (0-2) Band Neutrophils 6 % (0-8) Platelet Estimate Decreased L Platelet Morphology Normal Hypochromasia 1+ Anisocytosis 1+ Sodium Level 140 MMOL/L (136-145) Potassium Level 3.2 MMOL/L (3.5-5.1) L Chloride Level 105 MMOL/L (98-107) Carbon Dioxide Level 17 MMOL/L (21-32) L Anion Gap 18 mmol/L (5-15) H Blood Urea Nitrogen 74 mg/dL (7-18) H Creatinine 7.5 MG/DL (0.55-1.30) H Estimat Glomerular Filtration Rate 8.6 mL/min (>60) Glucose Level 171 MG/DL (74-106) H Lactic Acid Level 2.60 mmol/L (0.4-2.0) H Uric Acid 8.3 MG/DL (2.6-7.2) H Calcium Level 9.1 MG/DL (8.5-10.1) Phosphorus Level 4.4 MG/DL (2.5-4.9) Magnesium Level 2.1 MG/DL (1.8-2.4) Total Bilirubin 0.7 MG/DL (0.2-1.0) Aspartate Amino Transf (AST/SGOT) 34 U/L (15-37) Alanine Aminotransferase (ALT/SGPT) 39 U/L (12-78) Alkaline Phosphatase 91 U/L (46-116) C-Reactive Protein, Quantitative 0.6 mg/dL (0.00-0.90) Pro-B-Type Natriuretic Peptide 6314 pg/mL (0-125) H Total Protein 5.5 G/DL (6.4-8.2) L Albumin 2.5 G/DL (3.4-5.0) L Globulin 3.0 g/dL Albumin/Globulin Ratio 0.8 (1.0-2.7) L Random Vancomycin Level 17.9 ug/mL Plan Problems: (1) Cardiopulmonary arrest (2) Septic shock Assessment & Plan: 75 male leukocytosis lactic acidosis septic shock intubated intensive care unit. Unable to give abdominal exam, exam otherwise benign abdominal unlikely etiology imaging reviewed labs reviewed. Continue ventilator support respiratory in nature seemingly. NG tube IV fluids IV antibiotics will follow with recommendations thank you letter participation's care DAILY ESTIMATED NEEDS: Needs based on Critical care 74.2kg 22-28 kcals/kg 9345-3681 total kcals 1.2-2 g protein/kg 89-148 g total protein 25-30 mL/kg 7776-9813 total fluid mLs NUTRITION DIAGNOSIS: Swallowing difficulty r/t respiratory arrest as evidenced by pt intubated, on pressor support, ICU status. ENTERAL NUTRITION RECOMMENDATIONS: As able NEPRO @40ml/hr x24 hrs to provide 960ml, 1728 kcal, 78g pro, 698ml free H2O -When stable for feeds rec renal formula at this time d/t increasing K and phos. -obtain GI access, initiate Nepro @20ml/hr for 6 hrs, advance as tolerated 10ml/hr 2q4-6 hrs to goal -When tolerating TF at goal, add prosource 1 pack BID to better meet est pro needs. -Flush per HOB over 30 degrees. ----> If hemodynamically unstable, rec trophic feeds of Nepro @10ml/hr to maintain gut integrity. ADDITIONAL RECOMMENDATIONS: 1) F/up w/ H&P 2) Maintain D5 IV hydration while NPO 3) Maintain calibrated bed scale wts 4) Non oral feeds when stable (3) Lactic acidosis (4) Failure to thrive (5) Pancytopenia (6) Respiratory failure (7) Hypoxia (8) Pneumonia (9) Respiratory arrest (10) Hypernatremia (11) Renal failure Oni Walker Oct 06, 2020 13:43
--- NOTE | 2020-10-06 14:05 | Diagnostic Imaging Report ---
Indication: Abdominal pain Technique: Supine view of the abdomen Comparison: 10/04/2020 Findings: Stable satisfactory position of orogastric tube. Bowel gas pattern is unremarkable. There is a Cartagena catheter in place. There is no significant change Impression: Unchanged, over 2 days, findings as above.
--- NOTE | 2020-10-06 14:10 | NUR ---
NURSE NOTES: Talked with AurelioRN/HD nurse. Confirmed patient had HD order today. She said she will be here around 1999, she can't be here earlier than 1999. Will continue plan of care.
--- NOTE | 2020-10-06 15:35 | NUR ---
NURSE NOTES: Left IJ Juaquin cath with pigtail was inserted by Dr. Larsen. Bruce to use.
--- NOTE | 2020-10-06 15:35 | Brief Operative Note ---
Immediate Post Operative Note Operative Note Pre-op Diagnosis: renal failure Procedure: L IJV Juaquin Post-op Diagnosis: same as pre-op Surgeon: Uzma Tobias Anesthesia: local Specimen: none Complications: none Fluids: none Implant(s) used?: No Dawood Tobias MD Oct 06, 2020 15:35
--- NOTE | 2020-10-06 15:47 | NUR ---
RADIOLOGY NOTE: LEFT IJ NON TUNNELLED DIALYSIS CATHETER PLACEMENT BY DR. HAMZAH EVERETT AT 1345 HRS. FA
--- NOTE | 2020-10-06 16:22 | NUR ---
NURSE NOTES: Bed bath given. kept dry, clean and comfortable.
--- NOTE | 2020-10-06 17:30 | NUR ---
NURSE NOTES: Started HD by HD nurse. Increased levophed to 8mcg/min for BP supporting. Will continue to monitor closely.
--- NOTE | 2020-10-06 18:00 | NUR ---
NURSE NOTES: BP 94/68. Increased levophed to 16mcg/min. Will continue plan of care.
--- NOTE | 2020-10-06 18:39 | NUR ---
insurance CLINICALS FAXED TO [place] CM: [phone] and [phone]
--- NOTE | 2020-10-06 18:40 | Internal Med Progress Note ---
Subjective Date of Service: Oct 06, 2020 Physician Name Semaj Kay Attending Physician Ken Hutton MD Current Medications Medications (Trade) Dose Ordered Sig/Alfredo Route PRN Reason Start Time Stop Time Status Last Admin Dose Admin Acetaminophen (Tylenol) 650 mg EVERY 6 HOURS PRN NG Temp >100.5 09/30/20 02:30 10/30/20 02:29 Allopurinol (allopurinoL) 300 mg DAILY NG 10/06/20 09:00 11/04/20 08:59 10/06/20 08:24 Barium Sulfate (Readi-Cat 2) 450 ml NOW PRN ORAL Radiology Procedure 10/05/20 13:00 10/07/20 12:59 Chlorhexidine Gluconate (Babita-Hex 2%) 1 applic DAILY@2000 TOPIC 09/30/20 20:00 12/29/20 19:59 10/05/20 20:36 Dextrose (Dextrose 50%) 25 ml Q30M PRN IV Hypoglycemia 09/30/20 02:30 12/29/20 02:29 Dextrose (Dextrose 50%) 50 ml Q30M PRN IV Hypoglycemia 09/30/20 02:30 12/29/20 02:29 Dextrose/Sodium Chloride 1,000 ml @ 75 mls/hr [id number] IV 09/30/20 03:30 10/30/20 03:29 10/06/20 09:00 Famotidine (Pepcid I.v.) 20 mg DAILY IVP 09/30/20 10:00 10/30/20 09:59 10/06/20 08:23 Heparin Sodium/ Sodium Chloride (Heparin 1000 units/500ml Premix) 1,000 unit ONCE PRN INJ radiology use 10/06/20 12:30 10/08/20 12:29 Hydrocortisone (Solu-CORTEF) 100 mg EVERY 8 HOURS IV 09/30/20 14:00 12/29/20 13:59 10/06/20 13:17 Levetiracetam 100 ml @ 400 mls/hr Q12HR IVPB 10/02/20 09:00 12/31/20 08:59 10/06/20 08:24 Lidocaine HCl (Xylocaine 1% 30ml) 30 ml ONCE PRN INJ Radiology use 10/06/20 12:30 10/08/20 12:29 Lorazepam (Ativan 2mg/ml 1ml) 1 mg Q4H PRN IV For Seizures 10/01/20 16:00 10/08/20 15:59 10/02/20 10:00 Norepinephrine Bitartrate 8 mg/ Dextrose 250 ml @ 0 mls/hr Q24H IV 10/03/20 12:45 10/07/20 07:59 10/06/20 08:12 Norepinephrine Bitartrate 8 mg/ Dextrose 250 ml @ 0 mls/hr Q24H IV 10/07/20 08:00 10/10/20 07:59 Piperacillin Sod/ Tazobactam Sod 3.375 gm/Sodium Chloride 110 ml @ 27.5 mls/hr Q12HR IVPB 09/30/20 09:00 10/07/20 08:59 10/06/20 08:24 Sodium Citrate (Bicitra) 30 ml EVERY 6 HOURS NG 10/01/20 12:00 10/31/20 11:59 10/06/20 18:29 Vancomycin HCl ([facility] pharmacy to dose) 1 ea DAILY PRN MISC Per rx protocol 09/30/20 10:00 10/30/20 09:59 Allergies: Coded Allergies: No Known Allergies (Unverified , 09/13/20) ROS Limited/Unobtainable: Yes Subjective 75 YO M with recent diagnosis of thalassemia admitted with altered mental status. S/P cardiopulmonary arrest 09/29/20. Intubated and sedated. ICU. Cover for Int Sudeep-Dr Hutton Objective Last Vital Signs Date Time Temp Pulse Resp B/P (MAP) Pulse Ox O2 Delivery O2 Flow Rate FiO2 10/06/20 18:00 94/68 10/06/20 17:30 60 19 100 10/06/20 16:00 Mechanical Ventilator 10/06/20 16:00 40 10/06/20 16:00 97.2 10/01/20 04:00 100.0 Laboratory Tests Test 10/06/20 04:30 White Blood Count 15.0 K/UL (4.8-10.8) H Red Blood Count 3.02 M/UL (4.70-6.10) L Hemoglobin 9.4 G/DL (14.2-18.0) L Hematocrit 28.5 % (42.0-52.0) L Mean Corpuscular Volume 94 FL (80-99) Mean Corpuscular Hemoglobin 31.1 PG (27.0-31.0) H Mean Corpuscular Hemoglobin Concent 33.0 G/DL (32.0-36.0) Red Cell Distribution Width 18.4 % (11.6-14.8) H Platelet Count 42 K/UL (150-450) L Mean Platelet Volume 13.7 FL (6.5-10.1) H Neutrophils (%) (Auto) % (45.0-75.0) Lymphocytes (%) (Auto) % (20.0-45.0) Monocytes (%) (Auto) % (1.0-10.0) Eosinophils (%) (Auto) % (0.0-3.0) Basophils (%) (Auto) % (0.0-2.0) Differential Total Cells Counted 100 Neutrophils % (Manual) 79 % (45-75) H Lymphocytes % (Manual) 10 % (20-45) L Monocytes % (Manual) 4 % (1-10) Eosinophils % (Manual) 0 % (0-3) Basophils % (Manual) 1 % (0-2) Band Neutrophils 6 % (0-8) Platelet Estimate Decreased L Platelet Morphology Normal Hypochromasia 1+ Anisocytosis 1+ Sodium Level 140 MMOL/L (136-145) Potassium Level 3.2 MMOL/L (3.5-5.1) L Chloride Level 105 MMOL/L (98-107) Carbon Dioxide Level 17 MMOL/L (21-32) L Anion Gap 18 mmol/L (5-15) H Blood Urea Nitrogen 74 mg/dL (7-18) H Creatinine 7.5 MG/DL (0.55-1.30) H Estimat Glomerular Filtration Rate 8.6 mL/min (>60) Glucose Level 171 MG/DL (74-106) H Lactic Acid Level 2.60 mmol/L (0.4-2.0) H Uric Acid 8.3 MG/DL (2.6-7.2) H Calcium Level 9.1 MG/DL (8.5-10.1) Phosphorus Level 4.4 MG/DL (2.5-4.9) Magnesium Level 2.1 MG/DL (1.8-2.4) Total Bilirubin 0.7 MG/DL (0.2-1.0) Aspartate Amino Transf (AST/SGOT) 34 U/L (15-37) Alanine Aminotransferase (ALT/SGPT) 39 U/L (12-78) Alkaline Phosphatase 91 U/L (46-116) C-Reactive Protein, Quantitative 0.6 mg/dL (0.00-0.90) Pro-B-Type Natriuretic Peptide 6314 pg/mL (0-125) H Total Protein 5.5 G/DL (6.4-8.2) L Albumin 2.5 G/DL (3.4-5.0) L Globulin 3.0 g/dL Albumin/Globulin Ratio 0.8 (1.0-2.7) L Random Vancomycin Level 17.9 ug/mL Hepatitis B Surface Antigen Pending Microbiology Date/Time Source Procedure Growth Status 10/04/20 03:45 Sputum Gram Stain - Final Resulted 10/04/20 03:45 Sputum Culture - Preliminary Gram Negative Bacillus 1 Usual Respiratory Su Resulted Intake and Output 10/05/20 10/06/20 19:00 07:00 Intake Total 1070.0 ml 1045.2 ml Output Total 100 ml 30 ml Balance 970.0 ml 1015.2 ml IV Total 990.0 ml 1045.2 ml Tube Feeding 80 ml Output Urine Total 100 ml 30 ml # Bowel Movements 1 Objective Physical Exam General Appearance: lethargic Lines, tubes and drains: central line - R IJ HEENT: normocephalic, atraumatic, other - Pupils are 2 mm and sluggish reaction to light. Neck: non-tender Respiratory/Chest: lungs clear Cardiovascular/Chest: normal rate Abdomen: no mass, hypoactive bowel sounds Extremities: non-pitting Neurologic: unresponsiveness Assessment/Plan Assessment/Plan Assessment/Plan Status: unchanged Assessment/Plan: 75 y/o Male admitted to the Hospital with; # AMS # Acute encephalopathy # Acute hypoxemic respiratory failure # Respiratory acidosis. ABG monitoring. Intubation in the ER Pulmonary/ICU wtih Dr. Benavidez Renal consultation with Dr. Estrada. Add CT head wo contrast to rule out bleed vs other completing today. On route. EEG ordered today as no prior order found. Concern for anoxic brain injury. Seizure disorder # Pneumonia vs other ID consultation with Dr. Jamarcus Rick and Vancomycin Follow up lactate and wbc, cultures Covid Ag is NEGATIVE, PCR sent and pending. PUI status # Thalassemia Recent BM biopsy which was negative per family report. [place] MR number is [id number] ( MR not linked with [facility] database ) Supportive care Consider Hematology follow up as needed Continue maged per neurology=Dr Carranza # FTT - anorexia and weight loss Supportive care RD consult in the next 2 days for nutrition DNR DVT ppx GI ppx R IJ line Replace KCL IV Semaj Kay MD Oct 06, 2020 18:40
--- NOTE | 2020-10-06 19:25 | NUR ---
NURSE HAND-OFF REPORT: Latest Vital Signs: Temperature 97.2 , Pulse 90 , B/P 103 /62 , Respiratory Rate 18 , O2 SAT 100 , Mechanical Ventilator, O2 Flow Rate 100.0 . Vital Sign Comment: stable EKG Rhythm: Sinus Rhythm Rhythm change?: N MD Notified?: N - MD Response: Latest Carty Fall Score: 50 Fall Risk: High Risk Safety Measures: Call light Within Reach, Bed Alarm Zone 1, Side Rails Side Rails x3, Bed position Low and Locked. Fall Precautions: Yellow Socks Door Sign Patient Fall Education Report given to KIRBY Loving. Endorsed plan of care.
[2020-10-06] MEDS: Dyna-Hex 2% Top Sol 2oz TOPIC SCH (20:36)
--- NOTE | 2020-10-06 20:50 | Diagnostic Imaging Report ---
Indication: Renal failure Technique: Procedure performed at bedside. Procedural timeout performed. Total sterile technique, including sterile probe cover and sterile gel, sterile gloves, hand hygiene, hat, mask, sterile gown, large sterile drape, and preparation with 2% chlorhexidine utilized. Local anesthesia with 1% lidocaine. Ultrasound reveals patent compressible left internal jugular vein. Under real-time ultrasound guidance with real-time visualization of the entry into the vein, puncture left internal jugular vein using 21-gauge micropuncture needle, passage 0.018 guidewire, insertion 4 Malaysian micropuncture introducer, passage 0.035 guidewire, over which was passed serial dilators and then a 12 Malaysian 15 cm triple-lumen temporary dialysis catheter. Guidewire was removed. Catheter ports were aspirated and flushed. The catheter was fixed to the skin. Patient tolerated procedure well. A chest x-ray was obtained, documents catheter tip position at the cavoatrial junction. Comparison: none Findings: As above Impression: Successful bedside placement of right transjugular temporary dialysis catheter, as described.
[2020-10-07] VITALS (41 sets, daily range): BP systolic 89–137; BP diastolic 62–95
--- NOTE | 2020-10-07 | NUR ---
NURSE NOTES: reposition and suction
[2020-10-07] MEDS: D5 1/2NS 1,000 ML IV SCH ×2 (01:47→13:00)
--- NOTE | 2020-10-07 04:00 | NUR ---
NURSE NOTES: complete bed bath oral care done reposition and suction
[2020-10-07] MEDS: Hydrocortisone 100mg Inj IV SCH ×3 (05:48→21:09)
[2020-10-07 05:51] LABS: HEMATOCRIT 29.6 % (42.0-52.0); HEMOGLOBIN 9.7 G/DL (14.2-18.0); MEAN CORPUSCULAR VOLUME 94 FL (80-99); PLATELET COUNT 45 K/UL (150-450); RED BLOOD COUNT 3.17 M/UL (4.70-6.10); WHITE BLOOD COUNT 14.7 K/UL (4.8-10.8)
[2020-10-07] MEDS: Sodium Citrate 30ml NG SCH (05:53)
--- NOTE | 2020-10-07 06:00 | NUR ---
NURSE NOTES: levo drip at4mcg/min with 104 /56
[2020-10-07 06:19] LABS: ALBUMIN 2.4 G/DL (3.4-5.0); ALBUMIN/GLOBULIN RATIO 0.8 (1.0-2.7); BILIRUBIN,TOTAL 0.8 MG/DL (0.2-1.0); CALCIUM 8.6 MG/DL (8.5-10.1); CREATININE 5.4 MG/DL (0.55-1.30); PHOSPHORUS 3.4 MG/DL (2.5-4.9); POTASSIUM 3.4 MMOL/L (3.5-5.1)
--- NOTE | 2020-10-07 07:30 | NUR ---
NURSE NOTES: Received report from KIRBY Choe. Patient is obtunded, opening eyes spontaneously; however, not tracking. ETT 7.5/25cm at lip line with vent setting ac 16, tv 500, fio2 40%, PEEP 5. NGT intact; to low intermittent suction. Right IJ TLC intact and running with D5 1/2NS 75ml/hr and Levophed 4mcg/min. Lt IJ dialysis catheter with pigtail noted. Generalized edema noted. Bed locked and in lowest position, with call light within reach. Bed side rials padded for seizure precautions. Will continue plan of care.
--- NOTE | 2020-10-07 07:47 | NUR ---
NURSE HAND-OFF REPORT: Latest Vital Signs: Temperature 97.8 , Pulse 70 , B/P 101 /74 , Respiratory Rate 16 , O2 SAT 100 , Mechanical Ventilator, O2 Flow Rate 100.0 . Vital Sign Comment: EKG Rhythm: Sinus Rhythm Rhythm change?: N MD Notified?: N - MD Response: Latest Carty Fall Score: 50 Fall Risk: High Risk Safety Measures: Call light Within Reach, Bed Alarm Zone 1, Side Rails Side Rails x3, Bed position Low and Locked. Fall Precautions: Yellow Socks Door Sign Patient Fall Education Report given to greta clement using sbar
[2020-10-07] MEDS: levETIRAcetam 500mg/NS100ml 100 ML IVPB SCH ×2 (08:06→21:08)
--- NOTE | 2020-10-07 08:30 | NUR ---
NURSE NOTES: Bleeding noted from Lt IJ Dialysis catheter onto pt's pillow. Dressing changed, per protocol, using sterile technique.
--- NOTE | 2020-10-07 09:30 | NUR ---
NURSE NOTES: Dr Whitehead on the unit making his rounds. Updated him on pt's current condition.
--- NOTE | 2020-10-07 10:12 | NUR ---
NURSE NOTES: Spoke to Allan @ [facility] Nephrology [phone] to schedule dialysis for today, as ordered.
--- NOTE | 2020-10-07 10:14 | Nephrology Progress Note ---
Assessment/Plan Problem List: (1) COURTNEY (acute kidney injury) (2) Cardiopulmonary arrest (3) Respiratory failure (4) Septic shock Assessment Acute renal failure Septic shock Acute respiratory failure CODE STATUS now DNR Plan October 07: Patient was dialyzed yesterday. Labs reviewed. Platelets low. Oozing from the site of the dialysis catheter. On low-dose of pressors. Will dialyze tomorrow. Will change Pepcid to Protonix IV. Will give DDAVP 50 mcg once. Discussed with KIRBY Tarango. October 06: Status unchanged. Seen in ICU. Discussed with RN. Dialysis catheter and dialysis procedure has not yet been done. Radiology to arrange for catheter insertion today followed by dialysis. Labs reviewed. Medication list reviewed. October 05: Status quo. Labs reviewed. Serum creatinine creeping up. Patient hemodynamically more stable today than a few days ago. Called brother and he is agreeable for a trial of dialysis treatment with the hope to reverse the acute component of the renal failure. Nontunneled catheter placement ordered. Dialysis ordered. Continue to monitor renal parameters. Medication list reviewed. Discussed with RN and charge nurse. October 04: Status quo. Intubated on ventilator. Labs reviewed. Serum creatinine is plateauing. Trial of Zaroxolyn and 25% albumin infusion given. Abnormal electrolytes addressed. Continue as is. October 03: Continues to be on 6 mics of Levophed. Urine output 350 cc past 24 hours. No urine output since this morning. Labs reviewed. Discussed with KIRBY Diallo. Albumin bolus given. Zaroxolyn 1 dose ordered. Serum creatinine appears to be leveling off. Continue to monitor renal parameters. Patient DNR. October 02: Remains on low-dose pressors today almost anuric. Discussed with KIRBY Shook. Labs reviewed. Medication list reviewed. Trial of albumin and Lasix. Continue to monitor renal parameters. Patient DNR. FiO2 40% October 01: Patient clinically more stable. Discussed with KIRBY Tarango. Patient off pressors. ABG improved. Serum creatinine worse. Will start the patient on Bicitra and allopurinol through NG tube. Continue to monitor renal parameters. Per orders. Patient currently DNR. Previously: Pulmonary support Pressors Antibiotics Hydrocortisone Per orders Subjective ROS Limited/Unobtainable: Yes Objective Objective Last 24 Hour Vital Signs Date Time Temp Pulse Resp B/P (MAP) Pulse Ox O2 Delivery O2 Flow Rate FiO2 10/07/20 09:00 82 16 106/74 (85) 100 10/07/20 08:30 84 16 113/78 (90) 100 10/07/20 08:00 88 10/07/20 08:00 97.6 81 17 112/75 (87) 100 10/07/20 08:00 40 10/07/20 08:00 Mechanical Ventilator 10/07/20 07:43 83 16 10/07/20 07:30 70 16 101/74 (83) 100 10/07/20 07:15 96 17 30 10/07/20 07:15 74 16 107/65 (79) 100 10/07/20 07:00 77 16 109/70 (83) 100 10/07/20 06:00 106/96 10/07/20 06:00 86 16 96/62 (73) 100 10/07/20 05:30 77 16 132/79 (96) 100 10/07/20 05:12 59 16 30 10/07/20 05:00 126/88 10/07/20 05:00 95 16 120/80 (93) 99 10/07/20 04:30 75 16 133/95 (108) 100 10/07/20 04:00 97.8 69 19 137/87 (104) 100 10/07/20 04:00 91 10/07/20 04:00 147/92 10/07/20 04:00 40 10/07/20 04:00 Mechanical Ventilator 10/07/20 03:42 84 16 30 10/07/20 03:30 74 16 135/75 (95) 99 10/07/20 03:00 116/72 10/07/20 03:00 71 17 129/79 (96) 99 10/07/20 02:30 67 18 124/72 (89) 99 10/07/20 02:00 120/71 10/07/20 02:00 69 17 125/73 (90) 99 10/07/20 01:30 74 21 123/79 (94) 99 10/07/20 01:07 82 16 30 10/07/20 01:00 124/73 10/07/20 01:00 68 16 118/71 (87) 99 10/07/20 00:30 74 17 127/74 (91) 99 10/07/20 00:00 Mechanical Ventilator 10/07/20 00:00 122/80 10/07/20 00:00 70 17 129/81 (97) 98 10/07/20 00:00 40 10/07/20 00:00 87 10/06/20 23:40 133/78 10/06/20 23:23 79 17 30 10/06/20 23:00 98.2 68 18 145/82 (103) 99 10/06/20 23:00 120/50 10/06/20 22:00 72 20 138/84 (102) 97 10/06/20 22:00 133/56 10/06/20 21:30 63 17 133/93 (106) 99 10/06/20 21:30 63 17 133/93 (106) 99 10/06/20 21:19 93 17 30 10/06/20 21:00 71 19 137/79 (98) 97 10/06/20 21:00 137/78 10/06/20 21:00 138/80 (99) 10/06/20 20:30 79 18 136/73 (94) 100 10/06/20 20:00 66 10/06/20 20:00 Mechanical Ventilator 10/06/20 20:00 110/58 10/06/20 20:00 97.5 83 21 126/89 (101) 100 10/06/20 20:00 40 10/06/20 19:47 93 18 106/75 (85) 99 10/06/20 19:30 90 18 104/77 (86) 100 10/06/20 19:10 90 18 30 10/06/20 19:00 103/62 10/06/20 19:00 83 16 103/62 (76) 100 10/06/20 18:30 80 18 113/72 (86) 100 10/06/20 18:00 79 22 94/68 (77) 100 10/06/20 18:00 94/68 10/06/20 17:45 95/55 10/06/20 17:30 91/50 10/06/20 17:30 60 19 135/81 (99) 100 10/06/20 17:00 110/73 10/06/20 17:00 62 18 115/75 (88) 100 10/06/20 16:42 66 10/06/20 16:30 59 17 120/77 (91) 100 10/06/20 16:00 115/72 10/06/20 16:00 Mechanical Ventilator 10/06/20 16:00 54 10/06/20 16:00 40 10/06/20 16:00 97.2 51 16 108/69 (82) 100 10/06/20 15:30 67 16 105/70 (82) 100 10/06/20 15:18 57 16 30 10/06/20 15:00 116/91 10/06/20 15:00 67 18 118/77 (91) 100 10/06/20 14:30 77 17 112/88 (96) 100 10/06/20 14:00 119/92 10/06/20 14:00 76 16 119/84 (96) 100 10/06/20 13:30 96 16 123/86 (98) 100 10/06/20 13:00 128/107 10/06/20 13:00 104 16 124/90 (101) 100 10/06/20 12:30 64 16 120/75 (90) 100 10/06/20 12:00 Mechanical Ventilator 10/06/20 12:00 72 10/06/20 12:00 40 10/06/20 12:00 118/82 10/06/20 12:00 97.5 71 16 123/87 (99) 100 10/06/20 11:30 74 17 118/83 (95) 100 10/06/20 11:25 88 16 30 10/06/20 11:00 81 16 114/84 (94) 100 10/06/20 11:00 118/81 10/06/20 10:30 81 17 117/80 (92) 100 Intake and Output 10/06/20 10/07/20 19:00 07:00 Intake Total 1171.00 ml 1151.48 ml Output Total 10 ml 300 ml Balance 1161.00 ml 851.48 ml IV Total 1171.00 ml 1151.48 ml Output Urine Total 10 ml 0 ml Gastric Drainage Total 300 ml Hemodialysis UF 0 ml # Bowel Movements 1 1 Current Medications Medications (Trade) Dose Ordered Sig/Alfredo Route PRN Reason Start Time Stop Time Status Last Admin Dose Admin Acetaminophen (Tylenol) 650 mg EVERY 6 HOURS PRN NG Temp >100.5 09/30/20 02:30 10/30/20 02:29 Allopurinol (allopurinoL) 300 mg DAILY NG 10/06/20 09:00 11/04/20 08:59 10/07/20 08:05 Barium Sulfate (Readi-Cat 2) 450 ml NOW PRN ORAL Radiology Procedure 10/05/20 13:00 10/07/20 12:59 Chlorhexidine Gluconate (Babita-Hex 2%) 1 applic DAILY@2000 TOPIC 09/30/20 20:00 12/29/20 19:59 10/06/20 20:36 Dextrose (Dextrose 50%) 25 ml Q30M PRN IV Hypoglycemia 09/30/20 02:30 12/29/20 02:29 Dextrose (Dextrose 50%) 50 ml Q30M PRN IV Hypoglycemia 09/30/20 02:30 12/29/20 02:29 Dextrose/Sodium Chloride 1,000 ml @ 75 mls/hr [id number] IV 09/30/20 03:30 10/30/20 03:29 10/07/20 01:47 Heparin Sodium/ Sodium Chloride (Heparin 1000 units/500ml Premix) 1,000 unit ONCE PRN INJ radiology use 10/06/20 12:30 10/08/20 12:29 Hydrocortisone (Solu-CORTEF) 100 mg EVERY 8 HOURS IV 09/30/20 14:00 12/29/20 13:59 10/07/20 05:48 Levetiracetam 100 ml @ 400 mls/hr Q12HR IVPB 10/02/20 09:00 12/31/20 08:59 10/07/20 08:06 Lidocaine HCl (Xylocaine 1% 30ml) 30 ml ONCE PRN INJ Radiology use 10/06/20 12:30 10/08/20 12:29 Lorazepam (Ativan 2mg/ml 1ml) 1 mg Q4H PRN IV For Seizures 10/01/20 16:00 10/08/20 15:59 10/02/20 10:00 Norepinephrine Bitartrate 8 mg/ Dextrose 250 ml @ 0 mls/hr Q24H IV 10/03/20 12:45 10/07/20 23:59 10/06/20 23:40 Norepinephrine Bitartrate 8 mg/ Dextrose 250 ml @ 0 mls/hr Q24H IV 10/08/20 00:00 10/11/20 00:00 Pantoprazole (Protonix) 40 mg EVERY 12 HOURS IVP 10/07/20 21:00 11/06/20 20:59 UNV [facility] DAILY PRN MISC Per rx protocol 09/30/20 10:00 10/30/20 09:59 Laboratory Tests 10/07/20 04:45: White Blood Count 14.7H, Red Blood Count 3.17L, Hemoglobin 9.7L, Hematocrit 29.6L, Mean Corpuscular Volume 94, Mean Corpuscular Hemoglobin 30.5, Mean Corpuscular Hemoglobin Concent 32.7, Red Cell Distribution Width 18.0H, Platelet Count 45L, Mean Platelet Volume 9.7, Neutrophils (%) (Auto) , Lymphocytes (%) (Auto) , Monocytes (%) (Auto) , Eosinophils (%) (Auto) , Basophils (%) (Auto) , Differential Total Cells Counted 100, Neutrophils % (Manual) 88H, Lymphocytes % (Manual) 3L, Monocytes % (Manual) 9, Eosinophils % (Manual) 0, Basophils % ( Manual) 0, Band Neutrophils 0, Platelet Estimate DecreasedL, Platelet Morphology Normal, Hypochromasia 1+, Anisocytosis 2+, Target Cells Occasional, Sodium Level 142, Potassium Level 3.4L, Chloride Level 104, Carbon Dioxide Level 22, Anion Gap 16H, Blood Urea Nitrogen 49H, Creatinine 5.4H, Estimat Glomerular Filtration Rate 12.5, Glucose Level 201H, Calcium Level 8.6, Phosphorus Level 3.4, Magnesium Level 2.0, Total Bilirubin 0.8, Aspartate Amino Transf (AST/SGOT) 45H, Alanine Aminotransferase (ALT/SGPT) 42, Alkaline Phosphatase 68, C-Reactive Protein, Quantitative 0.6, Pro-B-Type Natriuretic Peptide 5241H, Total Protein 5.4L, Albumin 2.4L, Globulin 3.0, Albumin/Globulin Ratio 0.8L, Random Vancomycin Level 15.2 Height (Feet): 6 Height (Inches): 8.00 Weight (Pounds): 165 General Appearance: no apparent distress Cardiovascular: normal rate Respiratory/Chest: decreased breath sounds Abdomen: distended Angel Whitehead MD Oct 07, 2020 10:14
--- NOTE | 2020-10-07 10:39 | Surgery Progress Note ---
Surgery Progress Note Subjective Additional Comments no acute events ill appearing on support weaning labs noted HD cath placed bleeding from site ddavp ordered Objective Last 24 Hour Vital Signs Date Time Temp Pulse Resp B/P (MAP) Pulse Ox O2 Delivery O2 Flow Rate FiO2 10/07/20 10:00 87 19 107/73 (84) 100 10/07/20 10:00 107/73 10/07/20 09:30 89 16 106/74 (85) 100 10/07/20 09:00 82 16 106/74 (85) 100 10/07/20 09:00 112/76 10/07/20 08:30 84 16 113/78 (90) 100 10/07/20 08:00 88 10/07/20 08:00 112/75 10/07/20 08:00 97.6 81 17 112/75 (87) 100 10/07/20 08:00 40 10/07/20 08:00 Mechanical Ventilator 10/07/20 07:43 83 16 10/07/20 07:30 70 16 101/74 (83) 100 10/07/20 07:15 96 17 30 10/07/20 07:15 74 16 107/65 (79) 100 10/07/20 07:00 77 16 109/70 (83) 100 10/07/20 07:00 109/70 10/07/20 06:00 106/96 10/07/20 06:00 86 16 96/62 (73) 100 10/07/20 05:30 77 16 132/79 (96) 100 10/07/20 05:12 59 16 30 10/07/20 05:00 126/88 10/07/20 05:00 95 16 120/80 (93) 99 10/07/20 04:30 75 16 133/95 (108) 100 10/07/20 04:00 97.8 69 19 137/87 (104) 100 10/07/20 04:00 91 10/07/20 04:00 147/92 10/07/20 04:00 40 10/07/20 04:00 Mechanical Ventilator 10/07/20 03:42 84 16 30 10/07/20 03:30 74 16 135/75 (95) 99 10/07/20 03:00 116/72 10/07/20 03:00 71 17 129/79 (96) 99 10/07/20 02:30 67 18 124/72 (89) 99 10/07/20 02:00 120/71 10/07/20 02:00 69 17 125/73 (90) 99 10/07/20 01:30 74 21 123/79 (94) 99 10/07/20 01:07 82 16 30 10/07/20 01:00 124/73 10/07/20 01:00 68 16 118/71 (87) 99 10/07/20 00:30 74 17 127/74 (91) 99 10/07/20 00:00 Mechanical Ventilator 10/07/20 00:00 122/80 10/07/20 00:00 70 17 129/81 (97) 98 10/07/20 00:00 40 10/07/20 00:00 87 10/06/20 23:40 133/78 10/06/20 23:23 79 17 30 10/06/20 23:00 98.2 68 18 145/82 (103) 99 10/06/20 23:00 120/50 10/06/20 22:00 72 20 138/84 (102) 97 10/06/20 22:00 133/56 10/06/20 21:30 63 17 133/93 (106) 99 10/06/20 21:30 63 17 133/93 (106) 99 10/06/20 21:19 93 17 30 10/06/20 21:00 71 19 137/79 (98) 97 10/06/20 21:00 137/78 10/06/20 21:00 138/80 (99) 10/06/20 20:30 79 18 136/73 (94) 100 10/06/20 20:00 66 10/06/20 20:00 Mechanical Ventilator 10/06/20 20:00 110/58 10/06/20 20:00 97.5 83 21 126/89 (101) 100 10/06/20 20:00 40 10/06/20 19:47 93 18 106/75 (85) 99 10/06/20 19:30 90 18 104/77 (86) 100 10/06/20 19:10 90 18 30 10/06/20 19:00 103/62 10/06/20 19:00 83 16 103/62 (76) 100 10/06/20 18:30 80 18 113/72 (86) 100 10/06/20 18:00 79 22 94/68 (77) 100 10/06/20 18:00 94/68 10/06/20 17:45 95/55 10/06/20 17:30 91/50 10/06/20 17:30 60 19 135/81 (99) 100 10/06/20 17:00 110/73 10/06/20 17:00 62 18 115/75 (88) 100 10/06/20 16:42 66 10/06/20 16:30 59 17 120/77 (91) 100 10/06/20 16:00 115/72 10/06/20 16:00 Mechanical Ventilator 10/06/20 16:00 54 10/06/20 16:00 40 10/06/20 16:00 97.2 51 16 108/69 (82) 100 10/06/20 15:30 67 16 105/70 (82) 100 10/06/20 15:18 57 16 30 10/06/20 15:00 116/91 10/06/20 15:00 67 18 118/77 (91) 100 10/06/20 14:30 77 17 112/88 (96) 100 10/06/20 14:00 119/92 10/06/20 14:00 76 16 119/84 (96) 100 10/06/20 13:30 96 16 123/86 (98) 100 10/06/20 13:00 128/107 10/06/20 13:00 104 16 124/90 (101) 100 10/06/20 12:30 64 16 120/75 (90) 100 10/06/20 12:00 Mechanical Ventilator 10/06/20 12:00 72 10/06/20 12:00 40 10/06/20 12:00 118/82 10/06/20 12:00 97.5 71 16 123/87 (99) 100 10/06/20 11:30 74 17 118/83 (95) 100 10/06/20 11:25 88 16 30 10/06/20 11:00 81 16 114/84 (94) 100 10/06/20 11:00 118/81 I&O Intake and Output 10/06/20 10/07/20 19:00 07:00 Intake Total 1171.00 ml 1151.48 ml Output Total 10 ml 300 ml Balance 1161.00 ml 851.48 ml IV Total 1171.00 ml 1151.48 ml Output Urine Total 10 ml 0 ml Gastric Drainage Total 300 ml Hemodialysis UF 0 ml # Bowel Movements 1 1 Dressing: saturated Wound: clean Cardiovascular: RSR Respiratory: decreased breath sounds Abdomen: soft, non-tender, present bowel sounds, non-distended Extremities: no tenderness, no cyanosis Laboratory Tests Test 10/07/20 04:45 White Blood Count 14.7 K/UL (4.8-10.8) H Red Blood Count 3.17 M/UL (4.70-6.10) L Hemoglobin 9.7 G/DL (14.2-18.0) L Hematocrit 29.6 % (42.0-52.0) L Mean Corpuscular Volume 94 FL (80-99) Mean Corpuscular Hemoglobin 30.5 PG (27.0-31.0) Mean Corpuscular Hemoglobin Concent 32.7 G/DL (32.0-36.0) Red Cell Distribution Width 18.0 % (11.6-14.8) H Platelet Count 45 K/UL (150-450) L Mean Platelet Volume 9.7 FL (6.5-10.1) Neutrophils (%) (Auto) % (45.0-75.0) Lymphocytes (%) (Auto) % (20.0-45.0) Monocytes (%) (Auto) % (1.0-10.0) Eosinophils (%) (Auto) % (0.0-3.0) Basophils (%) (Auto) % (0.0-2.0) Differential Total Cells Counted 100 Neutrophils % (Manual) 88 % (45-75) H Lymphocytes % (Manual) 3 % (20-45) L Monocytes % (Manual) 9 % (1-10) Eosinophils % (Manual) 0 % (0-3) Basophils % (Manual) 0 % (0-2) Band Neutrophils 0 % (0-8) Platelet Estimate Decreased L Platelet Morphology Normal Hypochromasia 1+ Anisocytosis 2+ Target Cells Occasional Sodium Level 142 MMOL/L (136-145) Potassium Level 3.4 MMOL/L (3.5-5.1) L Chloride Level 104 MMOL/L (98-107) Carbon Dioxide Level 22 MMOL/L (21-32) Anion Gap 16 mmol/L (5-15) H Blood Urea Nitrogen 49 mg/dL (7-18) H Creatinine 5.4 MG/DL (0.55-1.30) H Estimat Glomerular Filtration Rate 12.5 mL/min (>60) Glucose Level 201 MG/DL (74-106) H Calcium Level 8.6 MG/DL (8.5-10.1) Phosphorus Level 3.4 MG/DL (2.5-4.9) Magnesium Level 2.0 MG/DL (1.8-2.4) Total Bilirubin 0.8 MG/DL (0.2-1.0) Aspartate Amino Transf (AST/SGOT) 45 U/L (15-37) H Alanine Aminotransferase (ALT/SGPT) 42 U/L (12-78) Alkaline Phosphatase 68 U/L (46-116) C-Reactive Protein, Quantitative 0.6 mg/dL (0.00-0.90) Pro-B-Type Natriuretic Peptide 5241 pg/mL (0-125) H Total Protein 5.4 G/DL (6.4-8.2) L Albumin 2.4 G/DL (3.4-5.0) L Globulin 3.0 g/dL Albumin/Globulin Ratio 0.8 (1.0-2.7) L Random Vancomycin Level 15.2 ug/mL Plan Problems: (1) Cardiopulmonary arrest (2) Septic shock Assessment & Plan: 75 male leukocytosis lactic acidosis septic shock intubated intensive care unit. Unable to give abdominal exam, exam otherwise benign abdominal unlikely etiology imaging reviewed labs reviewed. Continue ventilator support respiratory in nature seemingly. NG tube IV fluids IV antibiotics will follow with recommendations thank you letter participation's care bleeding from HD cath site ddavp ordered will monitor DAILY ESTIMATED NEEDS: Needs based on Critical care 74.2kg 22-28 kcals/kg 2728-7523 total kcals 1.2-2 g protein/kg 89-148 g total protein 25-30 mL/kg 6910-6028 total fluid mLs NUTRITION DIAGNOSIS: Swallowing difficulty r/t respiratory arrest as evidenced by pt intubated, on pressor support, ICU status. ENTERAL NUTRITION RECOMMENDATIONS: As able NEPRO @40ml/hr x24 hrs to provide 960ml, 1728 kcal, 78g pro, 698ml free H2O -When stable for feeds rec renal formula at this time d/t increasing K and phos. -obtain GI access, initiate Nepro @20ml/hr for 6 hrs, advance as tolerated 10ml/hr 2q4-6 hrs to goal -When tolerating TF at goal, add prosource 1 pack BID to better meet est pro needs. -Flush per HOB over 30 degrees. ----> If hemodynamically unstable, rec trophic feeds of Nepro @10ml/hr to maintain gut integrity. ADDITIONAL RECOMMENDATIONS: 1) F/up w/ H&P 2) Maintain D5 IV hydration while NPO 3) Maintain calibrated bed scale wts 4) Non oral feeds when stable (3) Lactic acidosis (4) Failure to thrive (5) Pancytopenia (6) Respiratory failure (7) Hypoxia (8) Pneumonia (9) Respiratory arrest (10) Hypernatremia (11) Renal failure Oni Walker Oct 07, 2020 10:39
--- NOTE | 2020-10-07 10:45 | Neurology Progress Note ---
Interim History Interim History ROS Limited/Unobtainable: Yes Events: pt was dialyzed yesterday on pressors Objective Physical Exam Last Vital Signs Date Time Temp Pulse Resp B/P (MAP) Pulse Ox O2 Delivery O2 Flow Rate FiO2 10/07/20 10:00 87 19 107/73 (84) 100 10/07/20 08:00 97.6 10/07/20 08:00 40 10/07/20 08:00 Mechanical Ventilator 10/01/20 04:00 100.0 Laboratory Tests Test 10/07/20 04:45 White Blood Count 14.7 K/UL (4.8-10.8) H Red Blood Count 3.17 M/UL (4.70-6.10) L Hemoglobin 9.7 G/DL (14.2-18.0) L Hematocrit 29.6 % (42.0-52.0) L Mean Corpuscular Volume 94 FL (80-99) Mean Corpuscular Hemoglobin 30.5 PG (27.0-31.0) Mean Corpuscular Hemoglobin Concent 32.7 G/DL (32.0-36.0) Red Cell Distribution Width 18.0 % (11.6-14.8) H Platelet Count 45 K/UL (150-450) L Mean Platelet Volume 9.7 FL (6.5-10.1) Neutrophils (%) (Auto) % (45.0-75.0) Lymphocytes (%) (Auto) % (20.0-45.0) Monocytes (%) (Auto) % (1.0-10.0) Eosinophils (%) (Auto) % (0.0-3.0) Basophils (%) (Auto) % (0.0-2.0) Differential Total Cells Counted 100 Neutrophils % (Manual) 88 % (45-75) H Lymphocytes % (Manual) 3 % (20-45) L Monocytes % (Manual) 9 % (1-10) Eosinophils % (Manual) 0 % (0-3) Basophils % (Manual) 0 % (0-2) Band Neutrophils 0 % (0-8) Platelet Estimate Decreased L Platelet Morphology Normal Hypochromasia 1+ Anisocytosis 2+ Target Cells Occasional Sodium Level 142 MMOL/L (136-145) Potassium Level 3.4 MMOL/L (3.5-5.1) L Chloride Level 104 MMOL/L (98-107) Carbon Dioxide Level 22 MMOL/L (21-32) Anion Gap 16 mmol/L (5-15) H Blood Urea Nitrogen 49 mg/dL (7-18) H Creatinine 5.4 MG/DL (0.55-1.30) H Estimat Glomerular Filtration Rate 12.5 mL/min (>60) Glucose Level 201 MG/DL (74-106) H Calcium Level 8.6 MG/DL (8.5-10.1) Phosphorus Level 3.4 MG/DL (2.5-4.9) Magnesium Level 2.0 MG/DL (1.8-2.4) Total Bilirubin 0.8 MG/DL (0.2-1.0) Aspartate Amino Transf (AST/SGOT) 45 U/L (15-37) H Alanine Aminotransferase (ALT/SGPT) 42 U/L (12-78) Alkaline Phosphatase 68 U/L (46-116) C-Reactive Protein, Quantitative 0.6 mg/dL (0.00-0.90) Pro-B-Type Natriuretic Peptide 5241 pg/mL (0-125) H Total Protein 5.4 G/DL (6.4-8.2) L Albumin 2.4 G/DL (3.4-5.0) L Globulin 3.0 g/dL Albumin/Globulin Ratio 0.8 (1.0-2.7) L Random Vancomycin Level 15.2 ug/mL Neurologic Exam Objective Physical Exam: Limited due to patients status unresponsive comatose, Pupils are sluggish, pupils equal reactive to light corneal reflex absent, gag reflex absent facial symmetric motor: no spontaneous movement in extremities, sensory response does not withdraw to pain Impression/Recommendations Status: unchanged Diagnostic Impression Imaging: EEG reviewed CT Head: No evidence of acute intracranial hemorrhage, mass effect or cortical edema. MRI recommended for more sensitive evaluation as clinically indicated. Atrophy and nonspecific periventricular hypoattenuation suggestive of chronic ischemic microvascular changes. Assessment And Rec's 1. Anoxic Encephalopathy --> EEG revealed short waves consistent with seizure activity --> S/p recent CODE Blue and intubation --> CT head reviewed as above 2. Abnormal EEG --> Possible subclinical seizure activity, it is not definitive --> Will start patient on presumptive seizure medication, Agree to continue with Keppra 500mg IV BID 3. Acute hypoxemic respiratory failure --> s/p intubation on vent 4. Questionable Pneumonia vs other ---> on abx Covid Ag is NEGATIVE, PCR sent and pending. PUI status 5. Anemia 6. FTT --> Supportive care 7. CKD --> HD Thank you for allowing us to participate in patient's care, plan of care was discussed with Dr. Jose Armando Camarena who agrees and has reviewed EEG results. Stacy Hinds NP Oct 07, 2020 10:45
[2020-10-07] MEDS ORDERED: Desmopressin (DDAVP) Inj IV ONE (11:00)
--- NOTE | 2020-10-07 12:10 | NUR ---
NURSE NOTES: Pt turned and repositioned for comfort. Left IJ dialysis catheter continues to bleed, despite dressing change earlier. Pt is afebrile. Remains on Levophed @ 4mcg/min to maintain SBP >90.
--- NOTE | 2020-10-07 12:16 | Pulmonology Progress Note ---
Subjective ROS Limited/Unobtainable: Yes Interval Events: No change; remains intubated Constitutional: Reports: no symptoms HEENT: Repors: no symptoms Respiratory: Reports: no symptoms Cardiovascular: Reports: no symptoms Gastrointestinal/Abdominal: Reports: no symptoms Genitourinary: Reports: no symptoms Allergies: Coded Allergies: No Known Allergies (Unverified , 09/13/20) Objective Last 24 Hour Vital Signs Date Time Temp Pulse Resp B/P (MAP) Pulse Ox O2 Delivery O2 Flow Rate FiO2 10/07/20 12:00 65 10/07/20 11:00 78 17 106/73 (84) 99 10/07/20 11:00 96 16 30 10/07/20 11:00 106/73 10/07/20 10:00 87 19 107/73 (84) 100 10/07/20 10:00 107/73 10/07/20 09:30 89 16 106/74 (85) 100 10/07/20 09:00 82 16 106/74 (85) 100 10/07/20 09:00 112/76 10/07/20 08:30 84 16 113/78 (90) 100 10/07/20 08:00 88 10/07/20 08:00 112/75 10/07/20 08:00 97.6 81 17 112/75 (87) 100 10/07/20 08:00 30 10/07/20 08:00 Mechanical Ventilator 10/07/20 07:43 83 16 10/07/20 07:30 70 16 101/74 (83) 100 10/07/20 07:15 96 17 30 10/07/20 07:15 74 16 107/65 (79) 100 10/07/20 07:00 77 16 109/70 (83) 100 10/07/20 07:00 109/70 10/07/20 06:00 106/96 10/07/20 06:00 86 16 96/62 (73) 100 10/07/20 05:30 77 16 132/79 (96) 100 10/07/20 05:12 59 16 30 10/07/20 05:00 126/88 10/07/20 05:00 95 16 120/80 (93) 99 10/07/20 04:30 75 16 133/95 (108) 100 10/07/20 04:00 97.8 69 19 137/87 (104) 100 10/07/20 04:00 91 10/07/20 04:00 147/92 10/07/20 04:00 40 10/07/20 04:00 Mechanical Ventilator 10/07/20 03:42 84 16 30 10/07/20 03:30 74 16 135/75 (95) 99 10/07/20 03:00 116/72 10/07/20 03:00 71 17 129/79 (96) 99 10/07/20 02:30 67 18 124/72 (89) 99 10/07/20 02:00 120/71 10/07/20 02:00 69 17 125/73 (90) 99 10/07/20 01:30 74 21 123/79 (94) 99 10/07/20 01:07 82 16 30 10/07/20 01:00 124/73 10/07/20 01:00 68 16 118/71 (87) 99 10/07/20 00:30 74 17 127/74 (91) 99 10/07/20 00:00 Mechanical Ventilator 10/07/20 00:00 122/80 10/07/20 00:00 70 17 129/81 (97) 98 10/07/20 00:00 40 10/07/20 00:00 87 10/06/20 23:40 133/78 10/06/20 23:23 79 17 30 10/06/20 23:00 98.2 68 18 145/82 (103) 99 10/06/20 23:00 120/50 10/06/20 22:00 72 20 138/84 (102) 97 10/06/20 22:00 133/56 10/06/20 21:30 63 17 133/93 (106) 99 10/06/20 21:30 63 17 133/93 (106) 99 10/06/20 21:19 93 17 30 10/06/20 21:00 71 19 137/79 (98) 97 10/06/20 21:00 137/78 10/06/20 21:00 138/80 (99) 10/06/20 20:30 79 18 136/73 (94) 100 10/06/20 20:00 66 10/06/20 20:00 Mechanical Ventilator 10/06/20 20:00 110/58 10/06/20 20:00 97.5 83 21 126/89 (101) 100 10/06/20 20:00 40 10/06/20 19:47 93 18 106/75 (85) 99 10/06/20 19:30 90 18 104/77 (86) 100 10/06/20 19:10 90 18 30 10/06/20 19:00 103/62 10/06/20 19:00 83 16 103/62 (76) 100 10/06/20 18:30 80 18 113/72 (86) 100 10/06/20 18:00 79 22 94/68 (77) 100 10/06/20 18:00 94/68 10/06/20 17:45 95/55 10/06/20 17:30 91/50 10/06/20 17:30 60 19 135/81 (99) 100 10/06/20 17:00 110/73 10/06/20 17:00 62 18 115/75 (88) 100 10/06/20 16:42 66 10/06/20 16:30 59 17 120/77 (91) 100 10/06/20 16:00 115/72 10/06/20 16:00 Mechanical Ventilator 10/06/20 16:00 54 10/06/20 16:00 40 10/06/20 16:00 97.2 51 16 108/69 (82) 100 10/06/20 15:30 67 16 105/70 (82) 100 10/06/20 15:18 57 16 30 10/06/20 15:00 116/91 10/06/20 15:00 67 18 118/77 (91) 100 10/06/20 14:30 77 17 112/88 (96) 100 10/06/20 14:00 119/92 10/06/20 14:00 76 16 119/84 (96) 100 10/06/20 13:30 96 16 123/86 (98) 100 10/06/20 13:00 128/107 10/06/20 13:00 104 16 124/90 (101) 100 10/06/20 12:30 64 16 120/75 (90) 100 Intake and Output 10/06/20 10/07/20 19:00 07:00 Intake Total 1171.00 ml 1155.23 ml Output Total 10 ml 300 ml Balance 1161.00 ml 855.23 ml IV Total 1171.00 ml 1155.23 ml Output Urine Total 10 ml 0 ml Gastric Drainage Total 300 ml Hemodialysis UF 0 ml # Bowel Movements 1 1 General Appearance: no acute distress HEENT: normocephalic Respiratory: chest wall non-tender Cardiovascular: normal peripheral pulses Abdomen: normal bowel sounds Laboratory Tests 10/07/20 04:45: White Blood Count 14.7H, Red Blood Count 3.17L, Hemoglobin 9.7L, Hematocrit 29.6L, Mean Corpuscular Volume 94, Mean Corpuscular Hemoglobin 30.5, Mean Corpuscular Hemoglobin Concent 32.7, Red Cell Distribution Width 18.0H, Platelet Count 45L, Mean Platelet Volume 9.7, Neutrophils (%) (Auto) , Lymphocytes (%) (Auto) , Monocytes (%) (Auto) , Eosinophils (%) (Auto) , Basophils (%) (Auto) , Differential Total Cells Counted 100, Neutrophils % (Manual) 88H, Lymphocytes % (Manual) 3L, Monocytes % (Manual) 9, Eosinophils % (Manual) 0, Basophils % (Manual) 0, Band Neutrophils 0, Platelet Estimate DecreasedL, Platelet Morphology Normal, Hypochromasia 1+, Anisocytosis 2+, Target Cells Occasional, Sodium Level 142, Potassium Level 3.4L, Chloride Level 104, Carbon Dioxide Level 22, Anion Gap 16H, Blood Urea Nitrogen 49H, Creatinine 5.4H, Estimat Glomerular Filtration Rate 12.5, Glucose Level 201H, Calcium Level 8.6, Phosphorus Level 3.4, Magnesium Level 2.0, Total Bilirubin 0.8, Aspartate Amino Transf (AST/SGOT) 45H, Alanine Aminotransferase (ALT/SGPT) 42, Alkaline Phosphatase 68, C-Reactive Protein, Quantitative 0.6, Pro-B-Type Natriuretic Peptide 5241H, Total Protein 5.4L, Albumin 2.4L, Globulin 3.0, Albumin/Globulin Ratio 0.8L, Random Vancomycin Level 15.2 Current Medications Medications (Trade) Dose Ordered Sig/Alfredo Route PRN Reason Start Time Stop Time Status Last Admin Dose Admin Acetaminophen (Tylenol) 650 mg EVERY 6 HOURS PRN NG Temp >100.5 09/30/20 02:30 10/30/20 02:29 Allopurinol (allopurinoL) 300 mg DAILY NG 10/06/20 09:00 11/04/20 08:59 10/07/20 08:05 Barium Sulfate (Readi-Cat 2) 450 ml NOW PRN ORAL Radiology Procedure 10/05/20 13:00 10/07/20 12:59 Chlorhexidine Gluconate (Babita-Hex 2%) 1 applic DAILY@2000 TOPIC 09/30/20 20:00 12/29/20 19:59 10/06/20 20:36 Dextrose (Dextrose 50%) 25 ml Q30M PRN IV Hypoglycemia 09/30/20 02:30 12/29/20 02:29 Dextrose (Dextrose 50%) 50 ml Q30M PRN IV Hypoglycemia 09/30/20 02:30 12/29/20 02:29 Dextrose/Sodium Chloride 1,000 ml @ 75 mls/hr [id number] IV 09/30/20 03:30 10/30/20 03:29 10/07/20 01:47 Heparin Sodium/ Sodium Chloride (Heparin 1000 units/500ml Premix) 1,000 unit ONCE PRN INJ radiology use 10/06/20 12:30 10/08/20 12:29 Hydrocortisone (Solu-CORTEF) 100 mg EVERY 8 HOURS IV 09/30/20 14:00 12/29/20 13:59 10/07/20 05:48 Levetiracetam 100 ml @ 400 mls/hr Q12HR IVPB 10/02/20 09:00 12/31/20 08:59 10/07/20 08:06 Lidocaine HCl (Xylocaine 1% 30ml) 30 ml ONCE PRN INJ Radiology use 10/06/20 12:30 10/08/20 12:29 Lorazepam (Ativan 2mg/ml 1ml) 1 mg Q4H PRN IV For Seizures 10/01/20 16:00 10/08/20 15:59 10/02/20 10:00 Norepinephrine Bitartrate 8 mg/ Dextrose 250 ml @ 0 mls/hr Q24H IV 10/03/20 12:45 10/07/20 23:59 10/06/20 23:40 Norepinephrine Bitartrate 8 mg/ Dextrose 250 ml @ 0 mls/hr Q24H IV 10/08/20 00:00 10/11/20 00:00 Pantoprazole (Protonix) 40 mg EVERY 12 HOURS IVP 10/07/20 21:00 11/06/20 20:59 Vancomycin HCl (Vanco pharmacy to dose) 1 ea DAILY PRN MISC Per rx protocol 09/30/20 10:00 10/30/20 09:59 Assessment/Plan Assessment/Plan 1. Respiratory failure. 2. Multiple medical problems consisting of hypertension, thalassemia, chronic pancreatitis, GERD, neuropathy, and depression. 3. Shock; on pressors 4. Acute renal failure and metabolic acidosis 5. Lactic acidemia 6. AMS; CT brain negative 7. Thrombocytopenia DISCUSSION: Code status needs to be discussed with family. Currently the patient is intubated. s/p dialysis Continue AC mode. Wean as tolerated but will not extubate till more awake and off pressors Now FiO2 30%, PEEP 5 Continue IV fluids. Pressors prn DVT and GI prophylaxis. Broad-spectrum antibiotics. We will follow carefully. Bicarb supplementation ABG adequate The care of this patient was discussed with my supervising physician Time spent for this encounter was approximately 31 minutes Dioni Coats Oct 07, 2020 12:16
--- NOTE | 2020-10-07 12:33 | NUR ---
RD ASSESSMENT & RECOMMENDATIONS SEE CARE ACTIVITY FOR COMPLETE ASSESSMENT DAILY ESTIMATED NEEDS: Needs based on Critical care, ARF + HD 74.2kg 22-28 kcals/kg 1059-6710 total kcals now w/ HD (1.2-1.8) g protein/kg 89-133 g total protein per MD NUTRITION DIAGNOSIS: Swallowing difficulty r/t respiratory arrest as evidenced by pt intubated, on pressor support, ICU status, on NGT feeds. CURRENT TF:Nepro @ 20ml/hr x 24 hrs ENTERAL NUTRITION RECOMMENDATIONS: NEPRO @ 40ml/hr x24 hrs +Prosource 1pkt QD to provide 960ml, 1728kcal, 78g +11 prot, 698ml free water - W/ continued improving hemodynamic stability, increase goal rate to 40ml/hr x 24 hrs - Add Prosource 1pkt QD for additional 11g prot - HOB over 30 degrees/ water flush per MD ----> If hemodynamically unstable, rec trophic feeds of Nepro @10ml/hr to maintain gut integrity. ADDITIONAL RECOMMENDATIONS: 1) Maintain calibrated bed scale wts 2) Monitor for continuity of HD (first HD 10/06) 3) Monitor lytes- K low, phos and mag wnl at this time 4) Add NISS for elev BGs, pt on Solumedrol 5) Monitor hemodynamic stability: NE titrating down, now @ 2mcg . .
--- NOTE | 2020-10-07 13:26 | Internal Med Progress Note ---
Subjective Physician Name Ken Hutton Attending Physician Ken Hutton MD Current Medications Medications (Trade) Dose Ordered Sig/Alfredo Route PRN Reason Start Time Stop Time Status Last Admin Dose Admin Acetaminophen (Tylenol) 650 mg EVERY 6 HOURS PRN NG Temp >100.5 09/30/20 02:30 10/30/20 02:29 Allopurinol (allopurinoL) 300 mg DAILY NG 10/06/20 09:00 11/04/20 08:59 10/07/20 08:05 Chlorhexidine Gluconate (Babita-Hex 2%) 1 applic DAILY@2000 TOPIC 09/30/20 20:00 12/29/20 19:59 10/06/20 20:36 Dextrose (Dextrose 50%) 25 ml Q30M PRN IV Hypoglycemia 09/30/20 02:30 12/29/20 02:29 Dextrose (Dextrose 50%) 50 ml Q30M PRN IV Hypoglycemia 09/30/20 02:30 12/29/20 02:29 Dextrose/Sodium Chloride 1,000 ml @ 75 mls/hr [id number] IV 09/30/20 03:30 10/30/20 03:29 10/07/20 13:00 Heparin Sodium/ Sodium Chloride (Heparin 1000 units/500ml Premix) 1,000 unit ONCE PRN INJ radiology use 10/06/20 12:30 10/08/20 12:29 Hydrocortisone (Solu-CORTEF) 100 mg EVERY 8 HOURS IV 09/30/20 14:00 12/29/20 13:59 10/07/20 13:00 Levetiracetam 100 ml @ 400 mls/hr Q12HR IVPB 10/02/20 09:00 12/31/20 08:59 10/07/20 08:06 Lidocaine HCl (Xylocaine 1% 30ml) 30 ml ONCE PRN INJ Radiology use 10/06/20 12:30 10/08/20 12:29 Lorazepam (Ativan 2mg/ml 1ml) 1 mg Q4H PRN IV For Seizures 10/01/20 16:00 10/08/20 15:59 10/02/20 10:00 Norepinephrine Bitartrate 8 mg/ Dextrose 250 ml @ 0 mls/hr Q24H IV 10/03/20 12:45 10/07/20 23:59 10/06/20 23:40 Norepinephrine Bitartrate 8 mg/ Dextrose 250 ml @ 0 mls/hr Q24H IV 10/08/20 00:00 10/11/20 00:00 Pantoprazole (Protonix) 40 mg EVERY 12 HOURS IVP 10/07/20 21:00 11/06/20 20:59 Vancomycin HCl ([facility] pharmacy to dose) 1 ea DAILY PRN MISC Per rx protocol 09/30/20 10:00 10/30/20 09:59 Allergies: Coded Allergies: No Known Allergies (Unverified , 09/13/20) Subjective in ICU, intubated, unresponsive, remained on ventilation, WBC: 14.7, PLT: 45 Objective Last Vital Signs Date Time Temp Pulse Resp B/P (MAP) Pulse Ox O2 Delivery O2 Flow Rate FiO2 10/07/20 13:00 102/68 10/07/20 13:00 65 16 100 10/07/20 12:00 30 10/07/20 12:00 97.8 10/07/20 12:00 Mechanical Ventilator 10/01/20 04:00 100.0 Laboratory Tests Test 10/07/20 04:45 White Blood Count 14.7 K/UL (4.8-10.8) H Red Blood Count 3.17 M/UL (4.70-6.10) L Hemoglobin 9.7 G/DL (14.2-18.0) L Hematocrit 29.6 % (42.0-52.0) L Mean Corpuscular Volume 94 FL (80-99) Mean Corpuscular Hemoglobin 30.5 PG (27.0-31.0) Mean Corpuscular Hemoglobin Concent 32.7 G/DL (32.0-36.0) Red Cell Distribution Width 18.0 % (11.6-14.8) H Platelet Count 45 K/UL (150-450) L Mean Platelet Volume 9.7 FL (6.5-10.1) Neutrophils (%) (Auto) % (45.0-75.0) Lymphocytes (%) (Auto) % (20.0-45.0) Monocytes (%) (Auto) % (1.0-10.0) Eosinophils (%) (Auto) % (0.0-3.0) Basophils (%) (Auto) % (0.0-2.0) Differential Total Cells Counted 100 Neutrophils % (Manual) 88 % (45-75) H Lymphocytes % (Manual) 3 % (20-45) L Monocytes % (Manual) 9 % (1-10) Eosinophils % (Manual) 0 % (0-3) Basophils % (Manual) 0 % (0-2) Band Neutrophils 0 % (0-8) Platelet Estimate Decreased L Platelet Morphology Normal Hypochromasia 1+ Anisocytosis 2+ Target Cells Occasional Sodium Level 142 MMOL/L (136-145) Potassium Level 3.4 MMOL/L (3.5-5.1) L Chloride Level 104 MMOL/L (98-107) Carbon Dioxide Level 22 MMOL/L (21-32) Anion Gap 16 mmol/L (5-15) H Blood Urea Nitrogen 49 mg/dL (7-18) H Creatinine 5.4 MG/DL (0.55-1.30) H Estimat Glomerular Filtration Rate 12.5 mL/min (>60) Glucose Level 201 MG/DL (74-106) H Calcium Level 8.6 MG/DL (8.5-10.1) Phosphorus Level 3.4 MG/DL (2.5-4.9) Magnesium Level 2.0 MG/DL (1.8-2.4) Total Bilirubin 0.8 MG/DL (0.2-1.0) Aspartate Amino Transf (AST/SGOT) 45 U/L (15-37) H Alanine Aminotransferase (ALT/SGPT) 42 U/L (12-78) Alkaline Phosphatase 68 U/L (46-116) C-Reactive Protein, Quantitative 0.6 mg/dL (0.00-0.90) Pro-B-Type Natriuretic Peptide 5241 pg/mL (0-125) H Total Protein 5.4 G/DL (6.4-8.2) L Albumin 2.4 G/DL (3.4-5.0) L Globulin 3.0 g/dL Albumin/Globulin Ratio 0.8 (1.0-2.7) L Random Vancomycin Level 15.2 ug/mL Intake and Output 10/06/20 10/07/20 19:00 07:00 Intake Total 1171.00 ml 1155.23 ml Output Total 10 ml 300 ml Balance 1161.00 ml 855.23 ml IV Total 1171.00 ml 1155.23 ml Output Urine Total 10 ml 0 ml Gastric Drainage Total 300 ml Hemodialysis UF 0 ml # Bowel Movements 1 1 Objective General Appearance: In Ventilation, unresponsive, lethargic, unable to F/U with Commands. Lines, tubes and drains: central line - R IJ HEENT: normocephalic, atraumatic,Pupils are 2 mm and sluggish reaction to light, ET tube, NGT. Neck: Supple, No JVD. Respiratory/Chest: Mechanical breath sound, No wheeze or rales. Cardiovascular/Chest: S1, S2 RR, No Murmur. Abdomen: Soft not distended, no mass, hypoactive bowel sounds Extremities: +2 extremities edema. Neurologic: Limited due to patient status, unresponsiveness, Facette X 4 extremities. Assessment/Plan Assessment/Plan 75 y/o Male admitted to the Hospital with; # AMS # Anoxic encephalopathy # Acute hypoxemic respiratory failure # Respiratory acidosis. ABG monitoring. Intubation in the ER Pulmonary/ICU wtih Dr. Benavidez Renal consultation with Dr. Estrada. Add CT head wo contrast to rule out bleed vs other completing today. On route. EEG ordered today as no prior order found. Concern for anoxic brain injury. Seizure disorder # Pneumonia #Septic Shock ID consultation with Dr. Ricketts Abx: Rocephin IV Follow up lactate and wbc, cultures # Thalassemia #COURTNEY on HD Supportive care Consider Hematology follow up as needed Continue keppra per neurology. # FTT - anorexia and weight loss Supportive care DNR DVT ppx GI ppx Ken Hutton MD Oct 07, 2020 13:26
--- NOTE | 2020-10-07 13:29 | Infectious Diseases Prog Note ---
Assessment/Plan 75 yo male with PMHx of failure to thrive, HTN, thalassemia, pancytopenia, HLD, Depression who was sent to the ED from his half-way for AMS. Septic Shock PNA Acute hypoxic resp failure sp VDRF -10/04 sp Cx - K. Pnaumo -10/01 sp cx S. aureus (sensi p), K. pna (r amp; otherwise S) -09/30 COVID PCr neg -09/30 CXR: Bibasilar atelectasis versus infiltrates CXR 09/29/20 - Left basilar atelectasis. No acute process otherwise. Evidence of old granulomatous disease rapid covid ag neg S. epi bacteremia- contaminant vs real -10/03 Bcx NGTD -09/29 BCx 09/07 sets S. epi Leukocytosis; increased No fever -09/30 ucx neg AMS -CT head: New NG tube and mid to distal esophagus. Recommend advancement. Bibasilar atelectasis versus infiltrates Lactic acidosis Failure to thrive HTN Thalassemia Pancytopenia HLD Depression Adenomatous colonic polyps PLAN Start Ceftriaxone #1 for K. pneumo PNA - 10/06/20 SP Zosyn #7/7 - 10/03/20 SP Vancomycin #3 - f/u COVID 19 Ag screen - f/u Cultures - Monitor CBC and Temps -BCx (periheral and line) 2d echo Thank you for this consult. [facility] will continue to follow Mr. Vargas while he in hospitalized. Subjective Allergies: Coded Allergies: No Known Allergies (Unverified , 09/13/20) Afebrile WBCs 14 from 15 On Vent Objective Last 24 Hour Vital Signs Date Time Temp Pulse Resp B/P (MAP) Pulse Ox O2 Delivery O2 Flow Rate FiO2 10/07/20 13:00 102/68 10/07/20 13:00 65 16 102/68 (79) 100 10/07/20 12:00 30 10/07/20 12:00 65 10/07/20 12:00 97.8 71 17 101/70 (80) 100 10/07/20 12:00 101/70 10/07/20 12:00 Mechanical Ventilator 10/07/20 11:00 78 17 106/73 (84) 99 10/07/20 11:00 96 16 30 10/07/20 11:00 106/73 10/07/20 10:00 87 19 107/73 (84) 100 10/07/20 10:00 107/73 10/07/20 09:30 89 16 106/74 (85) 100 10/07/20 09:00 82 16 106/74 (85) 100 10/07/20 09:00 112/76 10/07/20 08:30 84 16 113/78 (90) 100 10/07/20 08:00 88 10/07/20 08:00 112/75 10/07/20 08:00 97.6 81 17 112/75 (87) 100 10/07/20 08:00 30 10/07/20 08:00 Mechanical Ventilator 10/07/20 07:43 83 16 10/07/20 07:30 70 16 101/74 (83) 100 10/07/20 07:15 96 17 30 10/07/20 07:15 74 16 107/65 (79) 100 10/07/20 07:00 77 16 109/70 (83) 100 10/07/20 07:00 109/70 10/07/20 06:00 106/96 10/07/20 06:00 86 16 96/62 (73) 100 10/07/20 05:30 77 16 132/79 (96) 100 10/07/20 05:12 59 16 30 10/07/20 05:00 126/88 10/07/20 05:00 95 16 120/80 (93) 99 10/07/20 04:30 75 16 133/95 (108) 100 10/07/20 04:00 97.8 69 19 137/87 (104) 100 10/07/20 04:00 91 10/07/20 04:00 147/92 10/07/20 04:00 40 10/07/20 04:00 Mechanical Ventilator 10/07/20 03:42 84 16 30 10/07/20 03:30 74 16 135/75 (95) 99 10/07/20 03:00 116/72 10/07/20 03:00 71 17 129/79 (96) 99 10/07/20 02:30 67 18 124/72 (89) 99 10/07/20 02:00 120/71 10/07/20 02:00 69 17 125/73 (90) 99 10/07/20 01:30 74 21 123/79 (94) 99 10/07/20 01:07 82 16 30 10/07/20 01:00 124/73 10/07/20 01:00 68 16 118/71 (87) 99 10/07/20 00:30 74 17 127/74 (91) 99 10/07/20 00:00 Mechanical Ventilator 10/07/20 00:00 122/80 10/07/20 00:00 70 17 129/81 (97) 98 10/07/20 00:00 40 10/07/20 00:00 87 10/06/20 23:40 133/78 10/06/20 23:23 79 17 30 10/06/20 23:00 98.2 68 18 145/82 (103) 99 10/06/20 23:00 120/50 10/06/20 22:00 72 20 138/84 (102) 97 10/06/20 22:00 133/56 10/06/20 21:30 63 17 133/93 (106) 99 10/06/20 21:30 63 17 133/93 (106) 99 10/06/20 21:19 93 17 30 10/06/20 21:00 71 19 137/79 (98) 97 10/06/20 21:00 137/78 10/06/20 21:00 138/80 (99) 10/06/20 20:30 79 18 136/73 (94) 100 10/06/20 20:00 66 10/06/20 20:00 Mechanical Ventilator 10/06/20 20:00 110/58 10/06/20 20:00 97.5 83 21 126/89 (101) 100 10/06/20 20:00 40 10/06/20 19:47 93 18 106/75 (85) 99 10/06/20 19:30 90 18 104/77 (86) 100 10/06/20 19:10 90 18 30 10/06/20 19:00 103/62 10/06/20 19:00 83 16 103/62 (76) 100 10/06/20 18:30 80 18 113/72 (86) 100 10/06/20 18:00 79 22 94/68 (77) 100 10/06/20 18:00 94/68 10/06/20 17:45 95/55 10/06/20 17:30 91/50 10/06/20 17:30 60 19 135/81 (99) 100 10/06/20 17:00 110/73 10/06/20 17:00 62 18 115/75 (88) 100 10/06/20 16:42 66 10/06/20 16:30 59 17 120/77 (91) 100 10/06/20 16:00 115/72 10/06/20 16:00 Mechanical Ventilator 10/06/20 16:00 54 10/06/20 16:00 40 10/06/20 16:00 97.2 51 16 108/69 (82) 100 10/06/20 15:30 67 16 105/70 (82) 100 10/06/20 15:18 57 16 30 10/06/20 15:00 116/91 10/06/20 15:00 67 18 118/77 (91) 100 10/06/20 14:30 77 17 112/88 (96) 100 10/06/20 14:00 119/92 10/06/20 14:00 76 16 119/84 (96) 100 10/06/20 13:30 96 16 123/86 (98) 100 Height (Feet): 6 Height (Inches): 8.00 Weight (Pounds): 165 Gen: Intubated on Vent HEENT: NCAT, MMM, No scleral icterus Pulm: RRR No accessory muscle use Abd: Soft, ND, + BS SKIN: Exposed skin normal in color no rash noted Laboratory Tests Test 10/07/20 04:45 White Blood Count 14.7 K/UL (4.8-10.8) H Red Blood Count 3.17 M/UL (4.70-6.10) L Hemoglobin 9.7 G/DL (14.2-18.0) L Hematocrit 29.6 % (42.0-52.0) L Mean Corpuscular Volume 94 FL (80-99) Mean Corpuscular Hemoglobin 30.5 PG (27.0-31.0) Mean Corpuscular Hemoglobin Concent 32.7 G/DL (32.0-36.0) Red Cell Distribution Width 18.0 % (11.6-14.8) H Platelet Count 45 K/UL (150-450) L Mean Platelet Volume 9.7 FL (6.5-10.1) Neutrophils (%) (Auto) % (45.0-75.0) Lymphocytes (%) (Auto) % (20.0-45.0) Monocytes (%) (Auto) % (1.0-10.0) Eosinophils (%) (Auto) % (0.0-3.0) Basophils (%) (Auto) % (0.0-2.0) Differential Total Cells Counted 100 Neutrophils % (Manual) 88 % (45-75) H Lymphocytes % (Manual) 3 % (20-45) L Monocytes % (Manual) 9 % (1-10) Eosinophils % (Manual) 0 % (0-3) Basophils % (Manual) 0 % (0-2) Band Neutrophils 0 % (0-8) Platelet Estimate Decreased L Platelet Morphology Normal Hypochromasia 1+ Anisocytosis 2+ Target Cells Occasional Sodium Level 142 MMOL/L (136-145) Potassium Level 3.4 MMOL/L (3.5-5.1) L Chloride Level 104 MMOL/L (98-107) Carbon Dioxide Level 22 MMOL/L (21-32) Anion Gap 16 mmol/L (5-15) H Blood Urea Nitrogen 49 mg/dL (7-18) H Creatinine 5.4 MG/DL (0.55-1.30) H Estimat Glomerular Filtration Rate 12.5 mL/min (>60) Glucose Level 201 MG/DL (74-106) H Calcium Level 8.6 MG/DL (8.5-10.1) Phosphorus Level 3.4 MG/DL (2.5-4.9) Magnesium Level 2.0 MG/DL (1.8-2.4) Total Bilirubin 0.8 MG/DL (0.2-1.0) Aspartate Amino Transf (AST/SGOT) 45 U/L (15-37) H Alanine Aminotransferase (ALT/SGPT) 42 U/L (12-78) Alkaline Phosphatase 68 U/L (46-116) C-Reactive Protein, Quantitative 0.6 mg/dL (0.00-0.90) Pro-B-Type Natriuretic Peptide 5241 pg/mL (0-125) H Total Protein 5.4 G/DL (6.4-8.2) L Albumin 2.4 G/DL (3.4-5.0) L Globulin 3.0 g/dL Albumin/Globulin Ratio 0.8 (1.0-2.7) L Random Vancomycin Level 15.2 ug/mL Current Medications Medications (Trade) Dose Ordered Sig/Alfredo Route PRN Reason Start Time Stop Time Status Last Admin Dose Admin Acetaminophen (Tylenol) 650 mg EVERY 6 HOURS PRN NG Temp >100.5 09/30/20 02:30 10/30/20 02:29 Allopurinol (allopurinoL) 300 mg DAILY NG 10/06/20 09:00 11/04/20 08:59 10/07/20 08:05 Chlorhexidine Gluconate (Babita-Hex 2%) 1 applic DAILY@2000 TOPIC 09/30/20 20:00 12/29/20 19:59 10/06/20 20:36 Dextrose (Dextrose 50%) 25 ml Q30M PRN IV Hypoglycemia 09/30/20 02:30 12/29/20 02:29 Dextrose (Dextrose 50%) 50 ml Q30M PRN IV Hypoglycemia 09/30/20 02:30 12/29/20 02:29 Dextrose/Sodium Chloride 1,000 ml @ 75 mls/hr [id number] IV 09/30/20 03:30 10/30/20 03:29 10/07/20 13:00 Heparin Sodium/ Sodium Chloride (Heparin 1000 units/500ml Premix) 1,000 unit ONCE PRN INJ radiology use 10/06/20 12:30 10/08/20 12:29 Hydrocortisone (Solu-CORTEF) 100 mg EVERY 8 HOURS IV 09/30/20 14:00 12/29/20 13:59 10/07/20 13:00 Levetiracetam 100 ml @ 400 mls/hr Q12HR IVPB 10/02/20 09:00 12/31/20 08:59 10/07/20 08:06 Lidocaine HCl (Xylocaine 1% 30ml) 30 ml ONCE PRN INJ Radiology use 10/06/20 12:30 10/08/20 12:29 Lorazepam (Ativan 2mg/ml 1ml) 1 mg Q4H PRN IV For Seizures 10/01/20 16:00 10/08/20 15:59 10/02/20 10:00 Norepinephrine Bitartrate 8 mg/ Dextrose 250 ml @ 0 mls/hr Q24H IV 10/03/20 12:45 10/07/20 23:59 10/06/20 23:40 Norepinephrine Bitartrate 8 mg/ Dextrose 250 ml @ 0 mls/hr Q24H IV 10/08/20 00:00 10/11/20 00:00 Pantoprazole (Protonix) 40 mg EVERY 12 HOURS IVP 10/07/20 21:00 11/06/20 20:59 [facility] 1 ea DAILY PRN MISC Per rx protocol 09/30/20 10:00 10/30/20 09:59 Yoel Ricketts MD Oct 07, 2020 13:29
[2020-10-07] MEDS: cefTRIAXone 1 GM in D5W 55 ML IVPB SCH (14:24)
--- NOTE | 2020-10-07 14:46 | General Progress Note ---
Subjective ROS Limited/Unobtainable: No Allergies: Coded Allergies: No Known Allergies (Unverified , 09/13/20) Objective Last 24 Hour Vital Signs Date Time Temp Pulse Resp B/P (MAP) Pulse Ox O2 Delivery O2 Flow Rate FiO2 10/07/20 14:00 71 16 106/69 (81) 100 10/07/20 13:00 102/68 10/07/20 13:00 65 16 102/68 (79) 100 10/07/20 12:00 30 10/07/20 12:00 65 10/07/20 12:00 97.8 71 17 101/70 (80) 100 10/07/20 12:00 101/70 10/07/20 12:00 Mechanical Ventilator 10/07/20 11:00 78 17 106/73 (84) 99 10/07/20 11:00 96 16 30 10/07/20 11:00 106/73 10/07/20 10:00 87 19 107/73 (84) 100 10/07/20 10:00 107/73 10/07/20 09:30 89 16 106/74 (85) 100 10/07/20 09:00 82 16 106/74 (85) 100 10/07/20 09:00 112/76 10/07/20 08:30 84 16 113/78 (90) 100 10/07/20 08:00 88 10/07/20 08:00 112/75 10/07/20 08:00 97.6 81 17 112/75 (87) 100 10/07/20 08:00 30 10/07/20 08:00 Mechanical Ventilator 10/07/20 07:43 83 16 10/07/20 07:30 70 16 101/74 (83) 100 10/07/20 07:15 96 17 30 10/07/20 07:15 74 16 107/65 (79) 100 10/07/20 07:00 77 16 109/70 (83) 100 10/07/20 07:00 109/70 10/07/20 06:00 106/96 10/07/20 06:00 86 16 96/62 (73) 100 10/07/20 05:30 77 16 132/79 (96) 100 10/07/20 05:12 59 16 30 10/07/20 05:00 126/88 10/07/20 05:00 95 16 120/80 (93) 99 10/07/20 04:30 75 16 133/95 (108) 100 10/07/20 04:00 97.8 69 19 137/87 (104) 100 10/07/20 04:00 91 10/07/20 04:00 147/92 10/07/20 04:00 40 10/07/20 04:00 Mechanical Ventilator 10/07/20 03:42 84 16 30 10/07/20 03:30 74 16 135/75 (95) 99 10/07/20 03:00 116/72 10/07/20 03:00 71 17 129/79 (96) 99 10/07/20 02:30 67 18 124/72 (89) 99 10/07/20 02:00 120/71 10/07/20 02:00 69 17 125/73 (90) 99 10/07/20 01:30 74 21 123/79 (94) 99 10/07/20 01:07 82 16 30 10/07/20 01:00 124/73 10/07/20 01:00 68 16 118/71 (87) 99 10/07/20 00:30 74 17 127/74 (91) 99 10/07/20 00:00 Mechanical Ventilator 10/07/20 00:00 122/80 10/07/20 00:00 70 17 129/81 (97) 98 10/07/20 00:00 40 10/07/20 00:00 87 10/06/20 23:40 133/78 10/06/20 23:23 79 17 30 10/06/20 23:00 98.2 68 18 145/82 (103) 99 10/06/20 23:00 120/50 10/06/20 22:00 72 20 138/84 (102) 97 10/06/20 22:00 133/56 10/06/20 21:30 63 17 133/93 (106) 99 10/06/20 21:30 63 17 133/93 (106) 99 10/06/20 21:19 93 17 30 10/06/20 21:00 71 19 137/79 (98) 97 10/06/20 21:00 137/78 10/06/20 21:00 138/80 (99) 10/06/20 20:30 79 18 136/73 (94) 100 10/06/20 20:00 66 10/06/20 20:00 Mechanical Ventilator 10/06/20 20:00 110/58 10/06/20 20:00 97.5 83 21 126/89 (101) 100 10/06/20 20:00 40 10/06/20 19:47 93 18 106/75 (85) 99 10/06/20 19:30 90 18 104/77 (86) 100 10/06/20 19:10 90 18 30 10/06/20 19:00 103/62 10/06/20 19:00 83 16 103/62 (76) 100 10/06/20 18:30 80 18 113/72 (86) 100 10/06/20 18:00 79 22 94/68 (77) 100 10/06/20 18:00 94/68 10/06/20 17:45 95/55 10/06/20 17:30 91/50 10/06/20 17:30 60 19 135/81 (99) 100 10/06/20 17:00 110/73 10/06/20 17:00 62 18 115/75 (88) 100 10/06/20 16:42 66 10/06/20 16:30 59 17 120/77 (91) 100 10/06/20 16:00 115/72 10/06/20 16:00 Mechanical Ventilator 10/06/20 16:00 54 10/06/20 16:00 40 10/06/20 16:00 97.2 51 16 108/69 (82) 100 10/06/20 15:30 67 16 105/70 (82) 100 10/06/20 15:18 57 16 30 10/06/20 15:00 116/91 10/06/20 15:00 67 18 118/77 (91) 100 Intake and Output 10/06/20 10/07/20 19:00 07:00 Intake Total 1171.00 ml 1155.23 ml Output Total 10 ml 300 ml Balance 1161.00 ml 855.23 ml IV Total 1171.00 ml 1155.23 ml Output Urine Total 10 ml 0 ml Gastric Drainage Total 300 ml Hemodialysis UF 0 ml # Bowel Movements 1 1 Laboratory Tests 10/07/20 04:45: White Blood Count 14.7H, Red Blood Count 3.17L, Hemoglobin 9.7L, Hematocrit 29.6L, Mean Corpuscular Volume 94, Mean Corpuscular Hemoglobin 30.5, Mean Corpuscular Hemoglobin Concent 32.7, Red Cell Distribution Width 18.0H, Platelet Count 45L, Mean Platelet Volume 9.7, Neutrophils (%) (Auto) , Lymphocytes (%) (Auto) , Monocytes (%) (Auto) , Eosinophils (%) (Auto) , Basophils (%) (Auto) , Differential Total Cells Counted 100, Neutrophils % (Manual) 88H, Lymphocytes % (Manual) 3L, Monocytes % (Manual) 9, Eosinophils % (Manual) 0, Basophils % (Manual) 0, Band Neutrophils 0, Platelet Estimate DecreasedL, Platelet Morphology Normal, Hypochromasia 1+, Anisocytosis 2+, Target Cells Occasional, Sodium Level 142, Potassium Level 3.4L, Chloride Level 104, Carbon Dioxide Level 22, Anion Gap 16H, Blood Urea Nitrogen 49H, Creatinine 5.4H, Estimat Glomerular Filtration Rate 12.5, Glucose Level 201H, Calcium Level 8.6, Phosphorus Level 3.4, Magnesium Level 2.0, Total Bilirubin 0.8, Aspartate Amino Transf (AST/SGOT) 45H, Alanine Aminotransferase (ALT/SGPT) 42, Alkaline Phosphatase 68, C-Reactive Protein, Quantitative 0.6, Pro-B-Type Natriuretic Peptide 5241H, Total Protein 5.4L, Albumin 2.4L, Globulin 3.0, Albumin/Globulin Ratio 0.8L, Random Vancomycin Level 15.2 Height (Feet): 6 Height (Inches): 8.00 Weight (Pounds): 165 General Appearance: no apparent distress EENT: normal ENT inspection Neck: supple Cardiovascular: normal rate Respiratory/Chest: decreased breath sounds Abdomen: hypoactive bowel sounds, distended Extremities: non-tender Assessment/Plan Status: unchanged Assessment/Plan: 1. History of thalassemia. 2. Hypertension. 3. Chronic pancreatitis. 4. Dyslipidemia. 5. Atherosclerosis. 6. GERD. 7. Renal cyst. 8. Peripheral neuropathy. 9. History of colonic polyps. 10. Depression. 11. respiratory failure 12. renal failure 13 anemia 14. ? ileus ngt to suction had BM daily exam kub reviewed on pressors CT when more stable Nando Lyles MD Oct 07, 2020 14:46
--- NOTE | 2020-10-07 14:50 | NUR ---
NURSE NOTES: Right IJ central line dressing wet and soiled. Dressing changed, per protocol, using aseptic technique.
--- NOTE | 2020-10-07 16:40 | NUR ---
NURSE NOTES: [facility] nurse at bedside connecting pt to dialysis machine.
--- NOTE | 2020-10-07 18:00 | NUR ---
NURSE NOTES: Pt tolerating dialysis. Levophed increased d/t hypotension; currently running @ 8mcg/min
--- NOTE | 2020-10-07 19:12 | NUR ---
NURSE HAND-OFF REPORT: Latest Vital Signs: Temperature 97.2 , Pulse 72 , B/P 89 /63 , Respiratory Rate 16 , O2 SAT 98 , Mechanical Ventilator, FiO2 30%. Vital Sign Comment: EKG Rhythm: Sinus Rhythm Rhythm change?: N MD Notified?: N - MD Response: Latest Carty Fall Score: 50 Fall Risk: High Risk Safety Measures: Call light Within Reach, Bed Alarm Zone 1, Side Rails Side Rails x3, Bed position Low and Locked. Fall Precautions: Yellow Socks Door Sign Patient Fall Education Report given to KIRBY Rodriguez.
[2020-10-07] MEDS: Dyna-Hex 2% Top Sol 2oz TOPIC SCH (21:05)
[2020-10-07] MEDS: Pantoprazole Inj IVP SCH (21:05)
[2020-10-08] VITALS (36 sets, daily range): BP systolic 78–134; BP diastolic 50–97
[2020-10-08] MEDS: D5 1/2NS 1,000 ML IV SCH ×2 (03:43→19:16)
[2020-10-08] MEDS: Hydrocortisone 100mg Inj IV SCH ×3 (06:30→21:31)
[2020-10-08] MEDS: levETIRAcetam 500mg/NS100ml 100 ML IVPB SCH ×2 (08:22→20:59)
[2020-10-08] MEDS: Pantoprazole Inj IVP SCH ×2 (08:22→20:59)
--- NOTE | 2020-10-08 08:45 | NUR ---
NURSE NOTES: Dr. Ricketts updated this morning on the patient mental status, he remains obtunded with periodic arm and head movements, no seizure activity noted this morning, keppra 500mg infusing through though the right IJ central line.
--- NOTE | 2020-10-08 09:08 | Infectious Diseases Prog Note ---
Assessment/Plan 75 yo male with PMHx of failure to thrive, HTN, thalassemia, pancytopenia, HLD, Depression who was sent to the ED from his group home for AMS. Septic Shock PNA Acute hypoxic resp failure sp VDRF -10/04 sp Cx - K. Pnaumo -10/01 sp cx S. aureus (sensi p), K. pna (r amp; otherwise S) -09/30 COVID PCr neg -09/30 CXR: Bibasilar atelectasis versus infiltrates CXR 09/29/20 - Left basilar atelectasis. No acute process otherwise. Evidence of old granulomatous disease rapid covid ag neg S. epi bacteremia- contaminant vs real -10/03 Bcx NGTD -09/29 BCx 09/07 sets S. epi Leukocytosis; increased No fever -09/30 ucx neg AMS -CT head: New NG tube and mid to distal esophagus. Recommend advancement. Bibasilar atelectasis versus infiltrates Lactic acidosis Failure to thrive HTN Thalassemia Pancytopenia HLD Depression Adenomatous colonic polyps PLAN Continue Ceftriaxone #2 for K. pneumo PNA - 10/06/20 SP Zosyn #7/7 - 10/03/20 SP Vancomycin #3 - f/u COVID 19 Ag screen - f/u Cultures - Monitor CBC and Temps -BCx (periheral and line) 2d echo Thank you for this consult. [facility] will continue to follow Mr. Vargas while he in hospitalized. Subjective Allergies: Coded Allergies: No Known Allergies (Unverified , 09/13/20) Afebrile WBCs pending On Vent Levophed at 4mcg Objective Last 24 Hour Vital Signs Date Time Temp Pulse Resp B/P (MAP) Pulse Ox O2 Delivery O2 Flow Rate FiO2 10/08/20 07:35 95 16 30 10/08/20 06:30 66 16 105/74 (84) 100 10/08/20 06:30 67 16 10/08/20 06:00 63 16 96/65 (75) 100 10/08/20 06:00 115/75 10/08/20 05:33 81 17 30 10/08/20 05:00 74 16 110/77 (88) 100 10/08/20 05:00 113/79 10/08/20 04:00 30 10/08/20 04:00 81 10/08/20 04:00 122/78 10/08/20 04:00 81 16 123/76 (92) 99 10/08/20 04:00 Mechanical Ventilator 10/08/20 03:39 81 16 30 10/08/20 03:00 119/76 10/08/20 03:00 78 17 116/83 (94) 99 10/08/20 02:30 77 17 124/74 (91) 99 10/08/20 02:00 83 17 119/80 (93) 98 10/08/20 02:00 108/74 10/08/20 01:30 79 17 108/80 (89) 99 10/08/20 01:10 84 16 30 10/08/20 01:00 73 16 111/79 (90) 99 10/08/20 01:00 123/84 10/08/20 00:30 80 17 117/77 (90) 99 10/08/20 00:00 82 17 81/57 (65) 96 10/08/20 00:00 113/75 10/08/20 00:00 113/75 10/08/20 00:00 Mechanical Ventilator 10/07/20 23:30 81 16 109/69 (82) 98 10/07/20 23:18 80 16 30 10/07/20 23:00 80 16 105/72 (83) 98 10/07/20 23:00 105/72 10/07/20 22:30 77 16 109/73 (85) 98 10/07/20 22:00 76 18 111/73 (86) 98 10/07/20 22:00 107/71 10/07/20 21:43 84 17 30 10/07/20 21:30 80 16 112/73 (86) 98 10/07/20 21:00 79 17 118/71 (87) 98 10/07/20 21:00 118/71 10/07/20 20:30 82 17 109/73 (85) 98 10/07/20 20:00 Mechanical Ventilator 10/07/20 20:00 30 10/07/20 20:00 77 10/07/20 20:00 111/67 10/07/20 20:00 81 17 111/67 (82) 97 10/07/20 20:00 81 17 111/67 (82) 97 10/07/20 19:37 83 17 30 10/07/20 19:30 86 17 107/75 (86) 97 10/07/20 19:00 72 16 89/63 (72) 98 10/07/20 19:00 106/77 10/07/20 19:00 89/63 10/07/20 19:00 72 16 89/63 (72) 98 10/07/20 18:00 86 20 98/72 (81) 99 10/07/20 18:00 98/72 10/07/20 17:30 80 17 96/72 (80) 100 10/07/20 17:00 98/74 10/07/20 17:00 86 17 98/74 (82) 100 10/07/20 16:30 97.2 86 17 102/76 (85) 100 10/07/20 16:00 97 16 126/79 (95) 99 10/07/20 16:00 Mechanical Ventilator 10/07/20 16:00 30 10/07/20 16:00 126/79 10/07/20 16:00 81 10/07/20 15:30 81 21 30 10/07/20 15:00 78 16 115/77 (90) 99 10/07/20 15:00 115/77 10/07/20 14:00 71 16 106/69 (81) 100 10/07/20 14:00 106/69 10/07/20 13:00 102/68 10/07/20 13:00 65 16 102/68 (79) 100 10/07/20 12:00 30 10/07/20 12:00 65 10/07/20 12:00 97.8 71 17 101/70 (80) 100 10/07/20 12:00 101/70 10/07/20 12:00 Mechanical Ventilator 10/07/20 11:00 78 17 106/73 (84) 99 10/07/20 11:00 96 16 30 10/07/20 11:00 106/73 10/07/20 10:00 87 19 107/73 (84) 100 10/07/20 10:00 107/73 10/07/20 09:30 89 16 106/74 (85) 100 Height (Feet): 6 Height (Inches): 8.00 Weight (Pounds): 165 Gen: Intubated on Vent 30% O2 HEENT: NCAT, MMM, No scleral icterus Pulm: RRR No accessory muscle use Abd: Soft, ND, + BS SKIN: Exposed skin normal in color no rash noted Laboratory Tests Test 10/08/20 08:25 White Blood Count Pending Red Blood Count Pending Hemoglobin Pending Hematocrit Pending Mean Corpuscular Volume Pending Mean Corpuscular Hemoglobin Pending Mean Corpuscular Hemoglobin Concent Pending Red Cell Distribution Width Pending Platelet Count Pending Mean Platelet Volume Pending Neutrophils (%) (Auto) Pending Lymphocytes (%) (Auto) Pending Monocytes (%) (Auto) Pending Eosinophils (%) (Auto) Pending Basophils (%) (Auto) Pending Sodium Level Pending Potassium Level Pending Chloride Level Pending Carbon Dioxide Level Pending Blood Urea Nitrogen Pending Creatinine Pending Estimat Glomerular Filtration Rate Pending Glucose Level Pending Calcium Level Pending Phosphorus Level Pending Total Bilirubin Pending Aspartate Amino Transf (AST/SGOT) Pending Alanine Aminotransferase (ALT/SGPT) Pending Alkaline Phosphatase Pending Pro-B-Type Natriuretic Peptide Pending Total Protein Pending Albumin Pending Globulin Pending Current Medications Medications (Trade) Dose Ordered Sig/Alfredo Route PRN Reason Start Time Stop Time Status Last Admin Dose Admin Acetaminophen (Tylenol) 650 mg EVERY 6 HOURS PRN NG Temp >100.5 09/30/20 02:30 10/30/20 02:29 Allopurinol (allopurinoL) 300 mg DAILY NG 10/06/20 09:00 11/04/20 08:59 10/08/20 08:22 Ceftriaxone Sodium 1 gm/ Dextrose 55 ml @ 110 mls/hr Q24H IVPB 10/07/20 13:30 10/14/20 13:29 10/07/20 14:24 Chlorhexidine Gluconate (Babita-Hex 2%) 1 applic DAILY@2000 TOPIC 09/30/20 20:00 12/29/20 19:59 10/07/20 21:05 Dextrose (Dextrose 50%) 25 ml Q30M PRN IV Hypoglycemia 09/30/20 02:30 12/29/20 02:29 Dextrose (Dextrose 50%) 50 ml Q30M PRN IV Hypoglycemia 09/30/20 02:30 12/29/20 02:29 Dextrose/Sodium Chloride 1,000 ml @ 75 mls/hr [id number] IV 09/30/20 03:30 10/30/20 03:29 10/08/20 03:43 Heparin Sodium/ Sodium Chloride (Heparin 1000 units/500ml Premix) 1,000 unit ONCE PRN INJ radiology use 10/06/20 12:30 10/08/20 12:29 Hydrocortisone (Solu-CORTEF) 100 mg EVERY 8 HOURS IV 09/30/20 14:00 12/29/20 13:59 10/08/20 06:30 Levetiracetam 100 ml @ 400 mls/hr Q12HR IVPB 10/02/20 09:00 12/31/20 08:59 10/08/20 08:22 Lidocaine HCl (Xylocaine 1% 30ml) 30 ml ONCE PRN INJ Radiology use 10/06/20 12:30 10/08/20 12:29 Lorazepam (Ativan 2mg/ml 1ml) 1 mg Q4H PRN IV For Seizures 10/01/20 16:00 10/08/20 15:59 10/02/20 10:00 Norepinephrine Bitartrate 8 mg/ Dextrose 250 ml @ 0 mls/hr Q24H IV 10/08/20 00:00 10/11/20 00:00 10/08/20 00:00 Pantoprazole (Protonix) 40 mg EVERY 12 HOURS IVP 10/07/20 21:00 11/06/20 20:59 10/08/20 08:22 Yoel Ricketts MD Oct 08, 2020 09:08
[2020-10-08 09:09] LABS: CALCIUM 8.6 MG/DL (8.5-10.1); CREATININE 4.8 MG/DL (0.55-1.30); POTASSIUM 2.8 MMOL/L (3.5-5.1)
[2020-10-08 09:19] LABS: ALBUMIN 2.2 G/DL (3.4-5.0); ALBUMIN/GLOBULIN RATIO 0.8 (1.0-2.7); BILIRUBIN,TOTAL 0.9 MG/DL (0.2-1.0); PHOSPHORUS 3.2 MG/DL (2.5-4.9)
[2020-10-08 09:22] LABS: HEMATOCRIT 26.7 % (42.0-52.0); MEAN CORPUSCULAR VOLUME 93 FL (80-99); PLATELET COUNT 30 K/UL (150-450); RED BLOOD COUNT 2.88 M/UL (4.70-6.10); WHITE BLOOD COUNT 12.6 K/UL (4.8-10.8)
--- NOTE | 2020-10-08 10:15 | Pulmonology Progress Note ---
Subjective ROS Limited/Unobtainable: No Interval Events: No change; remains intubated; still on pressors Constitutional: Reports: no symptoms HEENT: Repors: no symptoms Respiratory: Reports: no symptoms Cardiovascular: Reports: no symptoms Gastrointestinal/Abdominal: Reports: no symptoms Genitourinary: Reports: no symptoms Allergies: Coded Allergies: No Known Allergies (Unverified , 09/13/20) Objective Last 24 Hour Vital Signs Date Time Temp Pulse Resp B/P (MAP) Pulse Ox O2 Delivery O2 Flow Rate FiO2 10/08/20 07:35 95 16 30 10/08/20 06:30 66 16 105/74 (84) 100 10/08/20 06:30 67 16 10/08/20 06:00 63 16 96/65 (75) 100 10/08/20 06:00 115/75 10/08/20 05:33 81 17 30 10/08/20 05:00 74 16 110/77 (88) 100 10/08/20 05:00 113/79 10/08/20 04:00 30 10/08/20 04:00 81 10/08/20 04:00 122/78 10/08/20 04:00 81 16 123/76 (92) 99 10/08/20 04:00 Mechanical Ventilator 10/08/20 03:39 81 16 30 10/08/20 03:00 119/76 10/08/20 03:00 78 17 116/83 (94) 99 10/08/20 02:30 77 17 124/74 (91) 99 10/08/20 02:00 83 17 119/80 (93) 98 10/08/20 02:00 108/74 10/08/20 01:30 79 17 108/80 (89) 99 10/08/20 01:10 84 16 30 10/08/20 01:00 73 16 111/79 (90) 99 10/08/20 01:00 123/84 10/08/20 00:30 80 17 117/77 (90) 99 10/08/20 00:00 82 17 81/57 (65) 96 10/08/20 00:00 113/75 10/08/20 00:00 113/75 10/08/20 00:00 Mechanical Ventilator 10/07/20 23:30 81 16 109/69 (82) 98 10/07/20 23:18 80 16 30 10/07/20 23:00 80 16 105/72 (83) 98 10/07/20 23:00 105/72 10/07/20 22:30 77 16 109/73 (85) 98 10/07/20 22:00 76 18 111/73 (86) 98 10/07/20 22:00 107/71 10/07/20 21:43 84 17 30 10/07/20 21:30 80 16 112/73 (86) 98 10/07/20 21:00 79 17 118/71 (87) 98 10/07/20 21:00 118/71 10/07/20 20:30 82 17 109/73 (85) 98 10/07/20 20:00 Mechanical Ventilator 10/07/20 20:00 30 10/07/20 20:00 77 10/07/20 20:00 111/67 10/07/20 20:00 81 17 111/67 (82) 97 10/07/20 20:00 81 17 111/67 (82) 97 10/07/20 19:37 83 17 30 10/07/20 19:30 86 17 107/75 (86) 97 10/07/20 19:00 72 16 89/63 (72) 98 10/07/20 19:00 106/77 10/07/20 19:00 89/63 10/07/20 19:00 72 16 89/63 (72) 98 10/07/20 18:00 86 20 98/72 (81) 99 10/07/20 18:00 98/72 10/07/20 17:30 80 17 96/72 (80) 100 10/07/20 17:00 98/74 10/07/20 17:00 86 17 98/74 (82) 100 10/07/20 16:30 97.2 86 17 102/76 (85) 100 10/07/20 16:00 97 16 126/79 (95) 99 10/07/20 16:00 Mechanical Ventilator 10/07/20 16:00 30 10/07/20 16:00 126/79 10/07/20 16:00 81 10/07/20 15:30 81 21 30 10/07/20 15:00 78 16 115/77 (90) 99 10/07/20 15:00 115/77 10/07/20 14:00 71 16 106/69 (81) 100 10/07/20 14:00 106/69 10/07/20 13:00 102/68 10/07/20 13:00 65 16 102/68 (79) 100 10/07/20 12:00 30 10/07/20 12:00 65 10/07/20 12:00 97.8 71 17 101/70 (80) 100 10/07/20 12:00 101/70 10/07/20 12:00 Mechanical Ventilator 10/07/20 11:00 78 17 106/73 (84) 99 10/07/20 11:00 96 16 30 10/07/20 11:00 106/73 Intake and Output 10/07/20 10/08/20 19:00 07:00 Intake Total 1267.5 ml 878.75 ml Output Total 40 ml 0 ml Balance 1227.5 ml 878.75 ml IV Total 1167.5 ml 878.75 ml Other 100 ml Output Urine Total 40 ml 0 ml Gastric Drainage Total 0 ml General Appearance: no acute distress HEENT: normocephalic Respiratory: chest wall non-tender Cardiovascular: normal peripheral pulses Abdomen: normal bowel sounds Laboratory Tests 10/08/20 08:25: White Blood Count 12.6H, Red Blood Count 2.88L, Hemoglobin 9.0L, Hematocrit 26.7L, Mean Corpuscular Volume 93, Mean Corpuscular Hemoglobin 31.2H, Mean Corpuscular Hemoglobin Concent 33.6, Red Cell Distribution Width 19.0H, Platelet Count 30L, Mean Platelet Volume 11.0H, Neutrophils (%) (Auto) , Lymphocytes (%) (Auto) , Monocytes (%) (Auto) , Eosinophils (%) (Auto) , Basophils (%) (Auto) , Neutrophils % (Manual) [Pending], Lymphocytes % (Manual) [Pending], Platelet Estimate [Pending], Platelet Morphology [Pending], Sodium Level 142, Potassium Level 2.8L, Chloride Level 107, Carbon Dioxide Level 26, Anion Gap 9, Blood Urea Nitrogen 40H, Creatinine 4.8H, Estimat Glomerular Filtration Rate 14.4, Glucose Level 193H, Calcium Level 8.6, Phosphorus Level 3.2, Total Bilirubin 0.9, Aspartate Amino Transf (AST/SGOT) 50H, Alanine Aminotransferase (ALT/SGPT) 52, Alkaline Phosphatase 60, Pro-B-Type Natriuretic Peptide 4578H, Total Protein 4.9L, Albumin 2.2L, Globulin 2.7, Albumin/Globulin Ratio 0.8L Current Medications Medications (Trade) Dose Ordered Sig/Alfredo Route PRN Reason Start Time Stop Time Status Last Admin Dose Admin Acetaminophen (Tylenol) 650 mg EVERY 6 HOURS PRN NG Temp >100.5 09/30/20 02:30 10/30/20 02:29 Allopurinol (allopurinoL) 300 mg DAILY NG 10/06/20 09:00 11/04/20 08:59 10/08/20 08:22 Ceftriaxone Sodium 1 gm/ Dextrose 55 ml @ 110 mls/hr Q24H IVPB 10/07/20 13:30 10/14/20 13:29 10/07/20 14:24 Chlorhexidine Gluconate (Babita-Hex 2%) 1 applic DAILY@2000 TOPIC 09/30/20 20:00 12/29/20 19:59 10/07/20 21:05 Dextrose (Dextrose 50%) 25 ml Q30M PRN IV Hypoglycemia 09/30/20 02:30 12/29/20 02:29 Dextrose (Dextrose 50%) 50 ml Q30M PRN IV Hypoglycemia 09/30/20 02:30 12/29/20 02:29 Dextrose/Sodium Chloride 1,000 ml @ 75 mls/hr [id number] IV 09/30/20 03:30 10/30/20 03:29 10/08/20 03:43 Heparin Sodium/ Sodium Chloride (Heparin 1000 units/500ml Premix) 1,000 unit ONCE PRN INJ radiology use 10/06/20 12:30 10/08/20 12:29 Hydrocortisone (Solu-CORTEF) 100 mg EVERY 8 HOURS IV 09/30/20 14:00 12/29/20 13:59 10/08/20 06:30 Levetiracetam 100 ml @ 400 mls/hr Q12HR IVPB 10/02/20 09:00 12/31/20 08:59 10/08/20 08:22 Lidocaine HCl (Xylocaine 1% 30ml) 30 ml ONCE PRN INJ Radiology use 10/06/20 12:30 10/08/20 12:29 Lorazepam (Ativan 2mg/ml 1ml) 1 mg Q4H PRN IV For Seizures 10/01/20 16:00 10/08/20 15:59 10/02/20 10:00 Norepinephrine Bitartrate 8 mg/ Dextrose 250 ml @ 0 mls/hr Q24H IV 10/08/20 00:00 10/11/20 00:00 10/08/20 00:00 Pantoprazole (Protonix) 40 mg EVERY 12 HOURS IVP 10/07/20 21:00 11/06/20 20:59 10/08/20 08:22 Assessment/Plan Assessment/Plan 1. Respiratory failure. 2. Multiple medical problems consisting of hypertension, thalassemia, chronic pancreatitis, GERD, neuropathy, and depression. 3. Shock; on pressors 4. Acute renal failure and metabolic acidosis 5. Lactic acidemia 6. AMS; CT brain negative 7. Thrombocytopenia DISCUSSION: Code status needs to be discussed with family. Currently the patient is intubated. s/p dialysis Continue AC mode. Wean as tolerated but will not extubate till more awake and off pressors Now FiO2 30%, PEEP 5 Continue IV fluids. Pressors prn DVT and GI prophylaxis. Broad-spectrum antibiotics. We will follow carefully. Bicarb supplementation ABG adequate The care of this patient was discussed with my supervising physician Time spent for this encounter was approximately 31 minutes Dioni Coats Oct 08, 2020 10:15
--- NOTE | 2020-10-08 11:05 | NUR ---
NURSE NOTES: Nurse Practitioner Guzman assessed patient at the bedside and updated on todays findings. no additional orders added at this time.
--- NOTE | 2020-10-08 11:08 | Neurology Progress Note ---
Interim History Interim History ROS Limited/Unobtainable: No Events: having spontaneuos movement of left hand and head Objective Physical Exam Last Vital Signs Date Time Temp Pulse Resp B/P (MAP) Pulse Ox O2 Delivery O2 Flow Rate FiO2 10/08/20 07:35 95 16 30 10/08/20 06:30 105/74 (84) 100 10/08/20 04:00 Mechanical Ventilator 10/07/20 16:30 97.2 10/01/20 04:00 100.0 Laboratory Tests Test 10/08/20 08:25 White Blood Count 12.6 K/UL (4.8-10.8) H Red Blood Count 2.88 M/UL (4.70-6.10) L Hemoglobin 9.0 G/DL (14.2-18.0) L Hematocrit 26.7 % (42.0-52.0) L Mean Corpuscular Volume 93 FL (80-99) Mean Corpuscular Hemoglobin 31.2 PG (27.0-31.0) H Mean Corpuscular Hemoglobin Concent 33.6 G/DL (32.0-36.0) Red Cell Distribution Width 19.0 % (11.6-14.8) H Platelet Count 30 K/UL (150-450) L Mean Platelet Volume 11.0 FL (6.5-10.1) H Neutrophils (%) (Auto) % (45.0-75.0) Lymphocytes (%) (Auto) % (20.0-45.0) Monocytes (%) (Auto) % (1.0-10.0) Eosinophils (%) (Auto) % (0.0-3.0) Basophils (%) (Auto) % (0.0-2.0) Differential Total Cells Counted 100 Neutrophils % (Manual) 93 % (45-75) H Lymphocytes % (Manual) 5 % (20-45) L Monocytes % (Manual) 2 % (1-10) Eosinophils % (Manual) 0 % (0-3) Basophils % (Manual) 0 % (0-2) Band Neutrophils 0 % (0-8) Platelet Estimate Decreased L Platelet Morphology Normal Hypochromasia 1+ Anisocytosis 2+ Sodium Level 142 MMOL/L (136-145) Potassium Level 2.8 MMOL/L (3.5-5.1) L Chloride Level 107 MMOL/L (98-107) Carbon Dioxide Level 26 MMOL/L (21-32) Anion Gap 9 mmol/L (5-15) Blood Urea Nitrogen 40 mg/dL (7-18) H Creatinine 4.8 MG/DL (0.55-1.30) H Estimat Glomerular Filtration Rate 14.4 mL/min (>60) Glucose Level 193 MG/DL (74-106) H Calcium Level 8.6 MG/DL (8.5-10.1) Phosphorus Level 3.2 MG/DL (2.5-4.9) Total Bilirubin 0.9 MG/DL (0.2-1.0) Aspartate Amino Transf (AST/SGOT) 50 U/L (15-37) H Alanine Aminotransferase (ALT/SGPT) 52 U/L (12-78) Alkaline Phosphatase 60 U/L (46-116) Pro-B-Type Natriuretic Peptide 4578 pg/mL (0-125) H Total Protein 4.9 G/DL (6.4-8.2) L Albumin 2.2 G/DL (3.4-5.0) L Globulin 2.7 g/dL Albumin/Globulin Ratio 0.8 (1.0-2.7) L Neurologic Exam Objective Physical Exam: Limited due to patients status unresponsive comatose, Pupils are sluggish, pupils equal reactive to light corneal reflex absent, gag reflex absent facial symmetric motor: spontaneous movement in left hand, sensory responses to suctioning thru trach not to pain. Impression/Recommendations Status: unchanged Diagnostic Impression Imaging: EEG reviewed CT Head: No evidence of acute intracranial hemorrhage, mass effect or cortical edema. MRI recommended for more sensitive evaluation as clinically indicated. Atrophy and nonspecific periventricular hypoattenuation suggestive of chronic ischemic microvascular changes. Assessment And Rec's 1. Anoxic Encephalopathy --> EEG revealed short waves consistent with seizure activity --> S/p recent CODE Blue and intubation --> CT head reviewed as above --> pt having spontaneous movements of his left hand and head no seizure activity reported 2. Abnormal EEG --> Possible subclinical seizure activity, it is not definitive --> Will start patient on presumptive seizure medication, Agree to continue with Keppra 500mg IV BID 3. Acute hypoxemic respiratory failure --> s/p intubation on vent 4. Questionable Pneumonia vs other ---> on abx --> Covid Ag is NEGATIVE, PCR not detected 5. Anemia 6. FTT --> Supportive care 7. CKD --> HD Thank you for allowing us to participate in patient's care, plan of care was discussed with Dr. Jose Armando Camarena who agrees and has reviewed EEG results. Stacy Hinds NP Oct 08, 2020 11:08
--- NOTE | 2020-10-08 11:14 | Surgery Progress Note ---
Surgery Progress Note Subjective Additional Comments ill appearing on support min responsive labs noted Objective Last 24 Hour Vital Signs Date Time Temp Pulse Resp B/P (MAP) Pulse Ox O2 Delivery O2 Flow Rate FiO2 10/08/20 07:35 95 16 30 10/08/20 06:30 66 16 105/74 (84) 100 10/08/20 06:30 67 16 10/08/20 06:00 63 16 96/65 (75) 100 10/08/20 06:00 115/75 10/08/20 05:33 81 17 30 10/08/20 05:00 74 16 110/77 (88) 100 10/08/20 05:00 113/79 10/08/20 04:00 30 10/08/20 04:00 81 10/08/20 04:00 122/78 10/08/20 04:00 81 16 123/76 (92) 99 10/08/20 04:00 Mechanical Ventilator 10/08/20 03:39 81 16 30 10/08/20 03:00 119/76 10/08/20 03:00 78 17 116/83 (94) 99 10/08/20 02:30 77 17 124/74 (91) 99 10/08/20 02:00 83 17 119/80 (93) 98 10/08/20 02:00 108/74 10/08/20 01:30 79 17 108/80 (89) 99 10/08/20 01:10 84 16 30 10/08/20 01:00 73 16 111/79 (90) 99 10/08/20 01:00 123/84 10/08/20 00:30 80 17 117/77 (90) 99 10/08/20 00:00 82 17 81/57 (65) 96 10/08/20 00:00 113/75 10/08/20 00:00 113/75 10/08/20 00:00 Mechanical Ventilator 10/07/20 23:30 81 16 109/69 (82) 98 10/07/20 23:18 80 16 30 10/07/20 23:00 80 16 105/72 (83) 98 10/07/20 23:00 105/72 10/07/20 22:30 77 16 109/73 (85) 98 10/07/20 22:00 76 18 111/73 (86) 98 10/07/20 22:00 107/71 10/07/20 21:43 84 17 30 10/07/20 21:30 80 16 112/73 (86) 98 10/07/20 21:00 79 17 118/71 (87) 98 10/07/20 21:00 118/71 10/07/20 20:30 82 17 109/73 (85) 98 10/07/20 20:00 Mechanical Ventilator 10/07/20 20:00 30 10/07/20 20:00 77 10/07/20 20:00 111/67 10/07/20 20:00 81 17 111/67 (82) 97 10/07/20 20:00 81 17 111/67 (82) 97 10/07/20 19:37 83 17 30 10/07/20 19:30 86 17 107/75 (86) 97 10/07/20 19:00 72 16 89/63 (72) 98 10/07/20 19:00 106/77 10/07/20 19:00 89/63 10/07/20 19:00 72 16 89/63 (72) 98 10/07/20 18:00 86 20 98/72 (81) 99 10/07/20 18:00 98/72 10/07/20 17:30 80 17 96/72 (80) 100 10/07/20 17:00 98/74 10/07/20 17:00 86 17 98/74 (82) 100 10/07/20 16:30 97.2 86 17 102/76 (85) 100 10/07/20 16:00 97 16 126/79 (95) 99 10/07/20 16:00 Mechanical Ventilator 10/07/20 16:00 30 10/07/20 16:00 126/79 10/07/20 16:00 81 10/07/20 15:30 81 21 30 10/07/20 15:00 78 16 115/77 (90) 99 10/07/20 15:00 115/77 10/07/20 14:00 71 16 106/69 (81) 100 10/07/20 14:00 106/69 10/07/20 13:00 102/68 10/07/20 13:00 65 16 102/68 (79) 100 10/07/20 12:00 30 10/07/20 12:00 65 10/07/20 12:00 97.8 71 17 101/70 (80) 100 10/07/20 12:00 101/70 10/07/20 12:00 Mechanical Ventilator I&O Intake and Output 10/07/20 10/08/20 19:00 07:00 Intake Total 1267.5 ml 878.75 ml Output Total 40 ml 0 ml Balance 1227.5 ml 878.75 ml IV Total 1167.5 ml 878.75 ml Other 100 ml Output Urine Total 40 ml 0 ml Gastric Drainage Total 0 ml Dressing: saturated Cardiovascular: RSR Respiratory: decreased breath sounds Abdomen: soft, non-tender, present bowel sounds, non-distended Extremities: no tenderness, no cyanosis Laboratory Tests Test 10/08/20 08:25 White Blood Count 12.6 K/UL (4.8-10.8) H Red Blood Count 2.88 M/UL (4.70-6.10) L Hemoglobin 9.0 G/DL (14.2-18.0) L Hematocrit 26.7 % (42.0-52.0) L Mean Corpuscular Volume 93 FL (80-99) Mean Corpuscular Hemoglobin 31.2 PG (27.0-31.0) H Mean Corpuscular Hemoglobin Concent 33.6 G/DL (32.0-36.0) Red Cell Distribution Width 19.0 % (11.6-14.8) H Platelet Count 30 K/UL (150-450) L Mean Platelet Volume 11.0 FL (6.5-10.1) H Neutrophils (%) (Auto) % (45.0-75.0) Lymphocytes (%) (Auto) % (20.0-45.0) Monocytes (%) (Auto) % (1.0-10.0) Eosinophils (%) (Auto) % (0.0-3.0) Basophils (%) (Auto) % (0.0-2.0) Differential Total Cells Counted 100 Neutrophils % (Manual) 93 % (45-75) H Lymphocytes % (Manual) 5 % (20-45) L Monocytes % (Manual) 2 % (1-10) Eosinophils % (Manual) 0 % (0-3) Basophils % (Manual) 0 % (0-2) Band Neutrophils 0 % (0-8) Platelet Estimate Decreased L Platelet Morphology Normal Hypochromasia 1+ Anisocytosis 2+ Sodium Level 142 MMOL/L (136-145) Potassium Level 2.8 MMOL/L (3.5-5.1) L Chloride Level 107 MMOL/L (98-107) Carbon Dioxide Level 26 MMOL/L (21-32) Anion Gap 9 mmol/L (5-15) Blood Urea Nitrogen 40 mg/dL (7-18) H Creatinine 4.8 MG/DL (0.55-1.30) H Estimat Glomerular Filtration Rate 14.4 mL/min (>60) Glucose Level 193 MG/DL (74-106) H Calcium Level 8.6 MG/DL (8.5-10.1) Phosphorus Level 3.2 MG/DL (2.5-4.9) Total Bilirubin 0.9 MG/DL (0.2-1.0) Aspartate Amino Transf (AST/SGOT) 50 U/L (15-37) H Alanine Aminotransferase (ALT/SGPT) 52 U/L (12-78) Alkaline Phosphatase 60 U/L (46-116) Pro-B-Type Natriuretic Peptide 4578 pg/mL (0-125) H Total Protein 4.9 G/DL (6.4-8.2) L Albumin 2.2 G/DL (3.4-5.0) L Globulin 2.7 g/dL Albumin/Globulin Ratio 0.8 (1.0-2.7) L Plan Problems: (1) Cardiopulmonary arrest (2) Septic shock Assessment & Plan: 75 male leukocytosis lactic acidosis septic shock intubated intensive care unit. Unable to give abdominal exam, exam otherwise benign abdominal unlikely etiology imaging reviewed labs reviewed. Continue ventilator support respiratory in nature seemingly. NG tube IV fluids IV antibiotics will follow with recommendations thank you letter participation's care bleeding from HD cath site ddavp ordered will monitor DAILY ESTIMATED NEEDS: Needs based on Critical care 74.2kg 22-28 kcals/kg [id number] total kcals 1.2-2 g protein/kg 89-148 g total protein 25-30 mL/kg [id number] total fluid mLs NUTRITION DIAGNOSIS: Swallowing difficulty r/t respiratory arrest as evidenced by pt intubated, on pressor support, ICU status. ENTERAL NUTRITION RECOMMENDATIONS: As able NEPRO @40ml/hr x24 hrs to provide 960ml, 1728 kcal, 78g pro, 698ml free H2O -When stable for feeds rec renal formula at this time d/t increasing K and phos. -obtain GI access, initiate Nepro @20ml/hr for 6 hrs, advance as tolerated 10ml/hr 2q4-6 hrs to goal -When tolerating TF at goal, add prosource 1 pack BID to better meet est pro needs. -Flush per HOB over 30 degrees. ----> If hemodynamically unstable, rec trophic feeds of Nepro @10ml/hr to maintain gut integrity. ADDITIONAL RECOMMENDATIONS: 1) F/up w/ H&P 2) Maintain D5 IV hydration while NPO 3) Maintain calibrated bed scale wts 4) Non oral feeds when stable (3) Lactic acidosis (4) Failure to thrive (5) Pancytopenia (6) Respiratory failure (7) Hypoxia (8) Pneumonia (9) Respiratory arrest (10) Hypernatremia (11) Renal failure Oni Walker Oct 08, 2020 11:14
--- NOTE | 2020-10-08 11:35 | NUR ---
NURSE NOTES: approximately 350mls of contrast flushed though the NG-tube for CT scan to be completed. Respiratory therapist notified of CT-scan scheduled for 1300, CT scan technicians notified.
--- NOTE | 2020-10-08 12:30 | NUR ---
DIET CLERK NOTES SPOKE WITH LAWANDA FROM [facility], THIS PT IS A MEMBER OF [facility]. REQUESTED TRANSFER INTO NETWORK. CLINICALS FAXED WAITING FOR ACCEPTANCE. Addendum: 10/08/20 at 1555 by ABHIJIT JARAMILLO RN CM PLACED A FOLLOW UP CALL TO LAWANDA, NO ANSWER. MESSAGE LEFT.
--- NOTE | 2020-10-08 12:53 | Nephrology Progress Note ---
Assessment/Plan Problem List: (1) COURTNEY (acute kidney injury) (2) Cardiopulmonary arrest (3) Respiratory failure (4) Septic shock Assessment Acute renal failure Septic shock Acute respiratory failure CODE STATUS now DNR Plan October 08: Patient was last dialyzed yesterday. Intubated. DNR. Meds and labs reviewed. Potassium supplement given. Continue to monitor renal parameters and dialysis as needed. Patient remains only coanuric. October 07: Patient was dialyzed yesterday. Labs reviewed. Platelets low. Oozing from the site of the dialysis catheter. On low-dose of pressors. Will dialyze today. Will change Pepcid to Protonix IV. Will give DDAVP 50 mcg once. Discussed with KIRBY Tarango. October 06: Status unchanged. Seen in ICU. Discussed with RN. Dialysis catheter and dialysis procedure has not yet been done. Radiology to arrange for catheter insertion today followed by dialysis. Labs reviewed. Medication list reviewed. October 05: Status quo. Labs reviewed. Serum creatinine creeping up. Patient hemodynamically more stable today than a few days ago. Called brother and he is agreeable for a trial of dialysis treatment with the hope to reverse the acute component of the renal failure. Nontunneled catheter placement ordered. Dialysis ordered. Continue to monitor renal parameters. Medication list review ed. Discussed with RN and charge nurse. October 04: Status quo. Intubated on ventilator. Labs reviewed. Serum creatinine is plateauing. Trial of Zaroxolyn and 25% albumin infusion given. Abnormal electrolytes addressed. Continue as is. October 03: Continues to be on 6 mics of Levophed. Urine output 350 cc past 24 hours. No urine output since this morning. Labs reviewed. Discussed with KIRBY Diallo. Albumin bolus given. Zaroxolyn 1 dose ordered. Serum creatinine appears to be leveling off. Continue to monitor renal parameters. Patient DNR. October 02: Remains on low-dose pressors today almost anuric. Discussed with KIRBY Shook. Labs reviewed. Medication list reviewed. Trial of albumin and Lasix. Continue to monitor renal parameters. Patient DNR. FiO2 40% October 01: Patient clinically more stable. Discussed with KIRBY Tarango. Patient off pressors. ABG improved. Serum creatinine worse. Will start the patient on Bicitra and allopurinol through NG tube. Continue to monitor renal parameters. Per orders. Patient currently DNR. Previously: Pulmonary support Pressors Antibiotics Hydrocortisone Per orders Subjective ROS Limited/Unobtainable: Yes Objective Objective Last 24 Hour Vital Signs Date Time Temp Pulse Resp B/P (MAP) Pulse Ox O2 Delivery O2 Flow Rate FiO2 10/08/20 12:30 81 17 112/77 (89) 100 10/08/20 12:08 85 16 30 10/08/20 12:00 30 10/08/20 12:00 Mechanical Ventilator 10/08/20 12:00 96.9 79 16 110/72 (85) 100 10/08/20 11:30 73 17 108/73 (85) 100 10/08/20 11:00 80 17 116/64 (81) 100 10/08/20 10:30 72 17 114/72 (86) 100 10/08/20 10:00 79 17 105/75 (85) 100 10/08/20 09:30 74 17 105/72 (83) 100 10/08/20 09:00 82 16 78/50 (59) 99 10/08/20 08:30 79 17 105/71 (82) 95 10/08/20 08:00 96.5 101 16 121/90 (100) 99 10/08/20 08:00 Mechanical Ventilator 10/08/20 08:00 30 10/08/20 07:35 95 16 30 10/08/20 07:30 81 17 134/97 (109) 100 10/08/20 07:00 63 16 117/73 (88) 100 10/08/20 06:30 66 16 105/74 (84) 100 10/08/20 06:30 67 16 10/08/20 06:00 63 16 96/65 (75) 100 10/08/20 06:00 115/75 10/08/20 05:33 81 17 30 10/08/20 05:00 74 16 110/77 (88) 100 10/08/20 05:00 113/79 10/08/20 04:00 30 10/08/20 04:00 81 10/08/20 04:00 122/78 10/08/20 04:00 81 16 123/76 (92) 99 10/08/20 04:00 Mechanical Ventilator 10/08/20 03:39 81 16 30 10/08/20 03:00 119/76 10/08/20 03:00 78 17 116/83 (94) 99 10/08/20 02:30 77 17 124/74 (91) 99 10/08/20 02:00 83 17 119/80 (93) 98 10/08/20 02:00 108/74 10/08/20 01:30 79 17 108/80 (89) 99 10/08/20 01:10 84 16 30 10/08/20 01:00 73 16 111/79 (90) 99 10/08/20 01:00 123/84 10/08/20 00:30 80 17 117/77 (90) 99 10/08/20 00:00 82 17 81/57 (65) 96 10/08/20 00:00 113/75 10/08/20 00:00 113/75 10/08/20 00:00 Mechanical Ventilator 10/07/20 23:30 81 16 109/69 (82) 98 10/07/20 23:18 80 16 30 10/07/20 23:00 80 16 105/72 (83) 98 10/07/20 23:00 105/72 10/07/20 22:30 77 16 109/73 (85) 98 10/07/20 22:00 76 18 111/73 (86) 98 10/07/20 22:00 107/71 10/07/20 21:43 84 17 30 10/07/20 21:30 80 16 112/73 (86) 98 10/07/20 21:00 79 17 118/71 (87) 98 10/07/20 21:00 118/71 10/07/20 20:30 82 17 109/73 (85) 98 10/07/20 20:00 Mechanical Ventilator 10/07/20 20:00 30 10/07/20 20:00 77 10/07/20 20:00 111/67 10/07/20 20:00 81 17 111/67 (82) 97 10/07/20 20:00 81 17 111/67 (82) 97 10/07/20 19:37 83 17 30 10/07/20 19:30 86 17 107/75 (86) 97 10/07/20 19:00 72 16 89/63 (72) 98 10/07/20 19:00 106/77 10/07/20 19:00 89/63 10/07/20 19:00 72 16 89/63 (72) 98 10/07/20 18:00 86 20 98/72 (81) 99 10/07/20 18:00 98/72 10/07/20 17:30 80 17 96/72 (80) 100 10/07/20 17:00 98/74 10/07/20 17:00 86 17 98/74 (82) 100 10/07/20 16:30 97.2 86 17 102/76 (85) 100 10/07/20 16:00 97 16 126/79 (95) 99 10/07/20 16:00 Mechanical Ventilator 10/07/20 16:00 30 10/07/20 16:00 126/79 10/07/20 16:00 81 10/07/20 15:30 81 21 30 10/07/20 15:00 78 16 115/77 (90) 99 10/07/20 15:00 115/77 10/07/20 14:00 71 16 106/69 (81) 100 10/07/20 14:00 106/69 10/07/20 13:00 102/68 10/07/20 13:00 65 16 102/68 (79) 100 Intake and Output 10/07/20 10/08/20 19:00 07:00 Intake Total 1267.5 ml 878.75 ml Output Total 40 ml 0 ml Balance 1227.5 ml 878.75 ml IV Total 1167.5 ml 878.75 ml Other 100 ml Output Urine Total 40 ml 0 ml Gastric Drainage Total 0 ml Current Medications Medications (Trade) Dose Ordered Sig/Alfredo Route PRN Reason Start Time Stop Time Status Last Admin Dose Admin Acetaminophen (Tylenol) 650 mg EVERY 6 HOURS PRN NG Temp >100.5 09/30/20 02:30 10/30/20 02:29 Allopurinol (allopurinoL) 300 mg DAILY NG 10/06/20 09:00 11/04/20 08:59 10/08/20 08:22 Ceftriaxone Sodium 1 gm/ Dextrose 55 ml @ 110 mls/hr Q24H IVPB 10/07/20 13:30 10/14/20 13:29 10/07/20 14:24 Chlorhexidine Gluconate (Babita-Hex 2%) 1 applic DAILY@2000 TOPIC 09/30/20 20:00 12/29/20 19:59 10/07/20 21:05 Dextrose (Dextrose 50%) 25 ml Q30M PRN IV Hypoglycemia 09/30/20 02:30 12/29/20 02:29 Dextrose (Dextrose 50%) 50 ml Q30M PRN IV Hypoglycemia 09/30/20 02:30 12/29/20 02:29 Dextrose/Sodium Chloride 1,000 ml @ 75 mls/hr [id number] IV 09/30/20 03:30 10/30/20 03:29 10/08/20 03:43 Hydrocortisone (Solu-CORTEF) 100 mg EVERY 8 HOURS IV 09/30/20 14:00 12/29/20 13:59 10/08/20 06:30 Levetiracetam 100 ml @ 400 mls/hr Q12HR IVPB 10/02/20 09:00 12/31/20 08:59 10/08/20 08:22 Lorazepam (Ativan 2mg/ml 1ml) 1 mg Q4H PRN IV For Seizures 10/01/20 16:00 10/08/20 15:59 10/02/20 10:00 Norepinephrine Bitartrate 8 mg/ Dextrose 250 ml @ 0 mls/hr Q24H IV 10/08/20 00:00 10/11/20 00:00 10/08/20 00:00 Pantoprazole (Protonix) 40 mg EVERY 12 HOURS IVP 10/07/20 21:00 11/06/20 20:59 10/08/20 08:22 Potassium Chloride 100 ml @ 50 mls/hr ONCE ONCE IVPB 10/08/20 12:30 10/08/20 14:29 Laboratory Tests 10/08/20 08:25: White Blood Count 12.6H, Red Blood Count 2.88L, Hemoglobin 9.0L, Hematocrit 26.7L, Mean Corpuscular Volume 93, Mean Corpuscular Hemoglobin 31.2H, Mean Corpuscular Hemoglobin Concent 33.6, Red Cell Distribution Width 19.0H, Platelet Count 30L, Mean Platelet Volume 11.0H, Neutrophils (%) (Auto) , Lymphocytes (%) (Auto) , Monocytes (%) (Auto) , Eosinophils (%) (Auto) , Basophils (%) (Auto) , Differential Total Cells Counted 100, Neutrophils % (Manual) 93H, Lymphocytes % (Manual) 5L, Monocytes % (Manual) 2, Eosinophils % (Manual) 0, Basophils % (Manual) 0, Band Neutrophils 0, Platelet Estimate DecreasedL, Platelet Morphology Normal, Hypochromasia 1+, Anisocytosis 2+, Sodium Level 142, Potassium Level 2.8L, Chloride Level 107, Carbon Dioxide Level 26, Anion Gap 9, Blood Urea Nitrogen 40H, Creatinine 4.8H, Estimat Glomerular Filtration Rate 14.4, Glucose Level 193H, Calcium Level 8.6, Phosphorus Level 3.2, Total Bilirubin 0.9, Aspartate Amino Transf (AST/SGOT) 50H, Alanine Aminotransferase (ALT/SGPT) 52, Alkaline Phosphatase 60, Pro-B-Type Natriuretic Peptide 4578H, Total Protein 4.9L, Albumin 2.2L, Globulin 2.7, Albumin/Globulin Ratio 0.8L Height (Feet): 6 Height (Inches): 8.00 Weight (Pounds): 165 General Appearance: no apparent distress EENT: other - Intubated on mechanical ventilator Cardiovascular: normal rate Respiratory/Chest: decreased breath sounds Abdomen: distended Angel Whitehead MD Oct 08, 2020 12:53
[2020-10-08] MEDS: cefTRIAXone 1 GM in D5W 55 ML IVPB SCH (13:47)
--- NOTE | 2020-10-08 13:55 | NUR ---
NURSE NOTES: CT of the abdomen completed with not episodes of SOB or desaturation while on the CT machine. RT notified to initiate weaning when possible,
--- NOTE | 2020-10-08 14:07 | Internal Med Progress Note ---
Subjective Physician Name Ken Hutton Attending Physician Ken Hutton MD Current Medications Medications (Trade) Dose Ordered Sig/Alfrdeo Route PRN Reason Start Time Stop Time Status Last Admin Dose Admin Acetaminophen (Tylenol) 650 mg EVERY 6 HOURS PRN NG Temp >100.5 09/30/20 02:30 10/30/20 02:29 Allopurinol (allopurinoL) 300 mg DAILY NG 10/06/20 09:00 11/04/20 08:59 10/08/20 08:22 Ceftriaxone Sodium 1 gm/ Dextrose 55 ml @ 110 mls/hr Q24H IVPB 10/07/20 13:30 10/14/20 13:29 10/08/20 13:47 Chlorhexidine Gluconate (Babita-Hex 2%) 1 applic DAILY@2000 TOPIC 09/30/20 20:00 12/29/20 19:59 10/07/20 21:05 Dextrose (Dextrose 50%) 25 ml Q30M PRN IV Hypoglycemia 09/30/20 02:30 12/29/20 02:29 Dextrose (Dextrose 50%) 50 ml Q30M PRN IV Hypoglycemia 09/30/20 02:30 12/29/20 02:29 Dextrose/Sodium Chloride 1,000 ml @ 75 mls/hr [id number] IV 09/30/20 03:30 10/30/20 03:29 10/08/20 03:43 Hydrocortisone (Solu-CORTEF) 100 mg EVERY 8 HOURS IV 09/30/20 14:00 12/29/20 13:59 10/08/20 13:47 Levetiracetam 100 ml @ 400 mls/hr Q12HR IVPB 10/02/20 09:00 12/31/20 08:59 10/08/20 08:22 Lorazepam (Ativan 2mg/ml 1ml) 1 mg Q4H PRN IV For Seizures 10/01/20 16:00 10/08/20 15:59 10/02/20 10:00 Norepinephrine Bitartrate 8 mg/ Dextrose 250 ml @ 0 mls/hr Q24H IV 10/08/20 00:00 10/11/20 00:00 10/08/20 00:00 Pantoprazole (Protonix) 40 mg EVERY 12 HOURS IVP 10/07/20 21:00 11/06/20 20:59 10/08/20 08:22 Potassium Chloride 100 ml @ 50 mls/hr ONCE ONCE IVPB 10/08/20 12:30 10/08/20 14:29 10/08/20 13:48 Allergies: Coded Allergies: No Known Allergies (Unverified , 09/13/20) Subjective in ICU, intubated, unresponsive, remained on ventilation, WBC: 17.6, PLT: 30 decline. Objective Last Vital Signs Date Time Temp Pulse Resp B/P (MAP) Pulse Ox O2 Delivery O2 Flow Rate FiO2 10/08/20 14:00 94 18 120/88 (99) 100 10/08/20 12:08 30 10/08/20 12:00 Mechanical Ventilator 10/08/20 12:00 96.9 10/01/20 04:00 100.0 Laboratory Tests Test 10/08/20 08:25 White Blood Count 12.6 K/UL (4.8-10.8) H Red Blood Count 2.88 M/UL (4.70-6.10) L Hemoglobin 9.0 G/DL (14.2-18.0) L Hematocrit 26.7 % (42.0-52.0) L Mean Corpuscular Volume 93 FL (80-99) Mean Corpuscular Hemoglobin 31.2 PG (27.0-31.0) H Mean Corpuscular Hemoglobin Concent 33.6 G/DL (32.0-36.0) Red Cell Distribution Width 19.0 % (11.6-14.8) H Platelet Count 30 K/UL (150-450) L Mean Platelet Volume 11.0 FL (6.5-10.1) H Neutrophils (%) (Auto) % (45.0-75.0) Lymphocytes (%) (Auto) % (20.0-45.0) Monocytes (%) (Auto) % (1.0-10.0) Eosinophils (%) (Auto) % (0.0-3.0) Basophils (%) (Auto) % (0.0-2.0) Differential Total Cells Counted 100 Neutrophils % (Manual) 93 % (45-75) H Lymphocytes % (Manual) 5 % (20-45) L Monocytes % (Manual) 2 % (1-10) Eosinophils % (Manual) 0 % (0-3) Basophils % (Manual) 0 % (0-2) Band Neutrophils 0 % (0-8) Platelet Estimate Decreased L Platelet Morphology Normal Hypochromasia 1+ Anisocytosis 2+ Sodium Level 142 MMOL/L (136-145) Potassium Level 2.8 MMOL/L (3.5-5.1) L Chloride Level 107 MMOL/L (98-107) Carbon Dioxide Level 26 MMOL/L (21-32) Anion Gap 9 mmol/L (5-15) Blood Urea Nitrogen 40 mg/dL (7-18) H Creatinine 4.8 MG/DL (0.55-1.30) H Estimat Glomerular Filtration Rate 14.4 mL/min (>60) Glucose Level 193 MG/DL (74-106) H Calcium Level 8.6 MG/DL (8.5-10.1) Phosphorus Level 3.2 MG/DL (2.5-4.9) Total Bilirubin 0.9 MG/DL (0.2-1.0) Aspartate Amino Transf (AST/SGOT) 50 U/L (15-37) H Alanine Aminotransferase (ALT/SGPT) 52 U/L (12-78) Alkaline Phosphatase 60 U/L (46-116) Pro-B-Type Natriuretic Peptide 4578 pg/mL (0-125) H Total Protein 4.9 G/DL (6.4-8.2) L Albumin 2.2 G/DL (3.4-5.0) L Globulin 2.7 g/dL Albumin/Globulin Ratio 0.8 (1.0-2.7) L Intake and Output 10/07/20 10/08/20 19:00 07:00 Intake Total 1267.5 ml 878.75 ml Output Total 40 ml 0 ml Balance 1227.5 ml 878.75 ml IV Total 1167.5 ml 878.75 ml Other 100 ml Output Urine Total 40 ml 0 ml Gastric Drainage Total 0 ml Objective General Appearance: In Ventilation, unresponsive, lethargic, unable to F/U with Commands. Lines, tubes and drains: central line - R IJ HEENT: normocephalic, atraumatic,Pupils are 2 mm and sluggish reaction to light, ET tube, NGT. Neck: Supple, No JVD. Respiratory/Chest: Mechanical breath sound, No wheeze or rales. Cardiovascular/Chest: S1, S2 RR, No Murmur. Abdomen: Soft not distended, no mass, hypoactive bowel sounds Extremities: +2 extremities edema. Neurologic: Limited due to patient status, unresponsiveness, Facette X 4 extremities. Assessment/Plan Assessment/Plan 75 y/o Male admitted to the Hospital with; # AMS # Anoxic encephalopathy # Acute hypoxemic respiratory failure # Respiratory acidosis. ABG monitoring. Intubation in the ER Pulmonary/ICU wtih Dr. Benavidez Renal consultation with Dr. Estrada. Add CT head wo contrast to rule out bleed vs other completing today. On route. EEG ordered today as no prior order found. Concern for anoxic brain injury. Seizure disorder # Pneumonia #Septic Shock ID consultation with Dr. Ricketts Abx: Rocephin IV Follow up lactate and wbc, cultures # Thalassemia #COURTNEY on HD Supportive care Consider Hematology follow up as needed Continue keppra per neurology. # FTT - anorexia and weight loss Supportive care Tube feeding on Hold. DNR DVT ppx GI ppx Ken Hutton MD Oct 08, 2020 14:07
--- NOTE | 2020-10-08 14:47 | NUR ---
RESPIRATORY NOTE: Placed pt on CPAP PS 8, +5, 30% FiO2. SBT begins @ 1440. Pt is tolerating well. SpO2 100%. No s/s of respiratory distress noted at this time. Pt in high fowlers position. SXN prior to beginning SBT. Pt is unresponsive but is breathing spontaneously. Yoel ORR aware. Ambu bag at bedside. Vent is plugged into red outlet and alarms are on and audible. Spont RR 19-22 Spont VT 300-500 Spont VE 7-9 RSBI 43 NIF -21 Will continue to closely monitor.
--- NOTE | 2020-10-08 15:00 | NUR ---
NURSE NOTES: Dr. Lyles updated the patient has not had output from the NG-tube while connected to LIS and would like to start tube feeding on the patient. currently the patient is being weaned with settings of CPAP, PS 8, Fio2 30%, peep of 5. patient is breathing at 18-19 with no respiratory distress or shortness of breath. BHARGAVI sahni updated regarding the patient weaning trial.
--- NOTE | 2020-10-08 15:19 | General Progress Note ---
Subjective ROS Limited/Unobtainable: No Allergies: Coded Allergies: No Known Allergies (Unverified , 09/13/20) Objective Last 24 Hour Vital Signs Date Time Temp Pulse Resp B/P (MAP) Pulse Ox O2 Delivery O2 Flow Rate FiO2 10/08/20 14:42 84 17 30 30 10/08/20 14:00 94 18 120/88 (99) 100 10/08/20 13:00 98 18 127/91 (103) 100 10/08/20 12:30 81 17 112/77 (89) 100 10/08/20 12:08 85 16 30 10/08/20 12:00 30 10/08/20 12:00 Mechanical Ventilator 10/08/20 12:00 96.9 79 16 110/72 (85) 100 10/08/20 11:30 73 17 108/73 (85) 100 10/08/20 11:00 80 17 116/64 (81) 100 10/08/20 10:30 72 17 114/72 (86) 100 10/08/20 10:00 79 17 105/75 (85) 100 10/08/20 09:30 74 17 105/72 (83) 100 10/08/20 09:00 82 16 78/50 (59) 99 10/08/20 08:30 79 17 105/71 (82) 95 10/08/20 08:00 96.5 101 16 121/90 (100) 99 10/08/20 08:00 Mechanical Ventilator 10/08/20 08:00 30 10/08/20 07:35 95 16 30 10/08/20 07:30 81 17 134/97 (109) 100 10/08/20 07:00 63 16 117/73 (88) 100 10/08/20 06:30 66 16 105/74 (84) 100 10/08/20 06:30 67 16 10/08/20 06:00 63 16 96/65 (75) 100 10/08/20 06:00 115/75 10/08/20 05:33 81 17 30 10/08/20 05:00 74 16 110/77 (88) 100 10/08/20 05:00 113/79 10/08/20 04:00 30 10/08/20 04:00 81 10/08/20 04:00 122/78 10/08/20 04:00 81 16 123/76 (92) 99 10/08/20 04:00 Mechanical Ventilator 10/08/20 03:39 81 16 30 10/08/20 03:00 119/76 10/08/20 03:00 78 17 116/83 (94) 99 10/08/20 02:30 77 17 124/74 (91) 99 10/08/20 02:00 83 17 119/80 (93) 98 10/08/20 02:00 108/74 10/08/20 01:30 79 17 108/80 (89) 99 10/08/20 01:10 84 16 30 10/08/20 01:00 73 16 111/79 (90) 99 10/08/20 01:00 123/84 10/08/20 00:30 80 17 117/77 (90) 99 10/08/20 00:00 82 17 81/57 (65) 96 10/08/20 00:00 113/75 10/08/20 00:00 113/75 10/08/20 00:00 Mechanical Ventilator 10/07/20 23:30 81 16 109/69 (82) 98 10/07/20 23:18 80 16 30 10/07/20 23:00 80 16 105/72 (83) 98 10/07/20 23:00 105/72 10/07/20 22:30 77 16 109/73 (85) 98 10/07/20 22:00 76 18 111/73 (86) 98 10/07/20 22:00 107/71 10/07/20 21:43 84 17 30 10/07/20 21:30 80 16 112/73 (86) 98 10/07/20 21:00 79 17 118/71 (87) 98 10/07/20 21:00 118/71 10/07/20 20:30 82 17 109/73 (85) 98 10/07/20 20:00 Mechanical Ventilator 10/07/20 20:00 30 10/07/20 20:00 77 10/07/20 20:00 111/67 10/07/20 20:00 81 17 111/67 (82) 97 10/07/20 20:00 81 17 111/67 (82) 97 10/07/20 19:37 83 17 30 10/07/20 19:30 86 17 107/75 (86) 97 10/07/20 19:00 72 16 89/63 (72) 98 10/07/20 19:00 106/77 10/07/20 19:00 89/63 10/07/20 19:00 72 16 89/63 (72) 98 10/07/20 18:00 86 20 98/72 (81) 99 10/07/20 18:00 98/72 10/07/20 17:30 80 17 96/72 (80) 100 10/07/20 17:00 98/74 10/07/20 17:00 86 17 98/74 (82) 100 10/07/20 16:30 97.2 86 17 102/76 (85) 100 10/07/20 16:00 97 16 126/79 (95) 99 10/07/20 16:00 Mechanical Ventilator 10/07/20 16:00 30 10/07/20 16:00 126/79 10/07/20 16:00 81 10/07/20 15:30 81 21 30 Intake and Output 10/07/20 10/08/20 19:00 07:00 Intake Total 1267.5 ml 878.75 ml Output Total 40 ml 0 ml Balance 1227.5 ml 878.75 ml IV Total 1167.5 ml 878.75 ml Other 100 ml Output Urine Total 40 ml 0 ml Gastric Drainage Total 0 ml Laboratory Tests 10/08/20 08:25: White Blood Count 12.6H, Red Blood Count 2.88L, Hemoglobin 9.0L, Hematocrit 26.7L, Mean Corpuscular Volume 93, Mean Corpuscular Hemoglobin 31.2H, Mean Corpuscular Hemoglobin Concent 33.6, Red Cell Distribution Width 19.0H, Platelet Count 30L, Mean Platelet Volume 11.0H, Neutrophils (%) (Auto) , Lymphocytes (%) (Auto) , Monocytes (%) (Auto) , Eosinophils (%) (Auto) , Basophils (%) (Auto) , Differential Total Cells Counted 100, Neutrophils % (Manual) 93H, Lymphocytes % (Manual) 5L, Monocytes % (Manual) 2, Eosinophils % (Manual) 0, Basophils % (Manual) 0, Band Neutrophils 0, Platelet Estimate DecreasedL, Platelet Morphology Normal, Hypochromasia 1+, Anisocytosis 2+, Sodium Level 142, Potassium Level 2.8L, Chloride Level 107, Carbon Dioxide Level 26, Anion Gap 9, Blood Urea Nitrogen 40H, Creatinine 4.8H, Estimat Glomerular Filtration Rate 14.4, Glucose Level 193H, Calcium Level 8.6, Phosphorus Level 3.2, Total Bilirubin 0.9, Aspartate Amino Transf (AST/SGOT) 50H, Alanine Aminotransferase (ALT/SGPT) 52, Alkaline Phosphatase 60, Pro-B-Type Natriuretic Peptide 4578H, Total Protein 4.9L, Albumin 2.2L, Globulin 2.7, Albumin/Globulin Ratio 0.8L Height (Feet): 6 Height (Inches): 8.00 Weight (Pounds): 165 General Appearance: no apparent distress EENT: normal ENT inspection Neck: supple Cardiovascular: normal rate Respiratory/Chest: decreased breath sounds Abdomen: hypoactive bowel sounds Extremities: non-tender Assessment/Plan Status: unchanged Assessment/Plan: 1. History of thalassemia. 2. Hypertension. 3. Chronic pancreatitis. 4. Dyslipidemia. 5. Atherosclerosis. 6. GERD. 7. Renal cyst. 8. Peripheral neuropathy. 9. History of colonic polyps. 10. Depression. 11. respiratory failure 12. renal failure 13 anemia 14. ? ileus ng had BM daily exam kub reviewed on pressors CT Nando Lyles MD Oct 08, 2020 15:19
--- NOTE | 2020-10-08 16:00 | NUR ---
NURSE NOTES: patient continues to be on weaning on CPAP with ps of 8, FIO2 30% and peep of 5. RR is noted to be at 17-19 with saturations of 99-100%. HR is 93 in sinus rhythm and bp of 129/91. patient mental status remains obtunded unable to spontaneously open eyes or follow commands.
--- NOTE | 2020-10-08 16:43 | NUR ---
NURSE NOTES: telephone order obtained from Dr. Lyles to change tube feeding order Nepro since the patient is currently being hemodialyzed. Addendum: 10/08/20 at 1929 by Yoel Vallejo RN is a dialysis patient
--- NOTE | 2020-10-08 17:11 | NUR ---
RESPIRATORY NOTE: Pt tolerated SBT well with no s/s of respiratory distress. Placed back on previously ordered ventilator settings @ 1710. Yoel ORR aware. Pt tolerated CPAP well for 2.5 hours. RN will notify MD. Plan for weaning again tomorrow. Will continue to monitor and follow plan of care.
--- NOTE | 2020-10-08 17:44 | Diagnostic Imaging Report ---
Indication: Abdominal pain Technique: Spiral acquisitions obtained through the abdomen and pelvis. Patient given enteric contrast via nasogastric tube No IV contrast utilized, per referring physician request.. Multiplanar reconstructions were generated. Total dose length product 605 mGycm. CTDIvol(s) 10 mGy. Dose reduction achieved using automated exposure control Comparison: None Findings: There is a large amount of ascites fluid. There is also anasarca, with diffuse edema of the subcutaneous fat, less extensive edema of the retroperitoneal and abdominal fat. There are also bilateral pleural effusions. Extensive consolidation is seen in both lower lobes, worse on the right than on the left. Calcified granulomatous subcarinal lymph nodes are noted. The tip of a PICC is seen at the cavoatrial junction. There is a nasogastric tube, tip at the gastric fundus body junction. The stomach is otherwise unremarkable. The distal esophagus is minimally dilated, gas-filled. No small bowel distention or small bowel wall thickening. However, ingested contrast does not reach the colon. There is there is diverticulosis. No definite evidence of diverticulitis, although given the degree of edema this is difficult to confidently exclude. The appendix is normal. No free intraperitoneal gas. There is wall thickening of the duodenum. There is also mild wall thickening of a few portions of the proximal small bowel. The liver is somewhat small, demonstrates equivocal surface nodularity. The gallbladder contains gallstones. Numerous calcifications are seen scattered throughout the liver and the spleen. No biliary ductal dilatation. The pancreas is atrophic and contains numerous calcifications. The adrenals are unremarkable. No retroperitoneal or mesenteric mass or adenopathy. No pelvic mass or adenopathy. The bladder contains a Cartagena catheter, is nearly empty. Impression: Anasarca, with large volume ascites, bilateral pleural effusions, edema of subcutaneous, retroperitoneal, and abdominal fat. Duodenal and proximal small bowel wall thickening. Could indicate duodenitis/enteritis, or could be a manifestation of anasarca. Extensive bilateral lower lobe consolidation, likely pneumonia Evidence of old granulomatous disease within the subcarinal nodes, liver, spleen Suggestive mildly atrophic liver and questionable surface nodularity; if real, could indicate cirrhotic change Nasogastric tube in good position. Atrophic calcified pancreas, likely chronic calcified pancreatitis Cartagena catheter PICC The CT scanner at [facility] is accredited by the [employer] and the scans are performed using protocols designed to limit radiation exposure to as low as reasonably achievable to attain images of sufficient resolution adequate for diagnostic evaluation.
--- NOTE | 2020-10-08 19:29 | NUR ---
NURSE HAND-OFF REPORT: Latest Vital Signs: Temperature 96.9 , Pulse 99 , B/P 110 /78 , Respiratory Rate 19 , O2 SAT 100 , Mechanical Ventilator, O2 Flow Rate 100.0 . Vital Sign Comment: EKG Rhythm: Sinus Rhythm Rhythm change?: N MD Notified?: N - MD Response: Latest Carty Fall Score: 50 Fall Risk: High Risk Safety Measures: Call light Within Reach, Bed Alarm Zone 1, Side Rails Side Rails x3, Bed position Low and Locked. Fall Precautions: Yellow Socks Door Sign Patient Fall Education Report given to KIRBY Gould.
[2020-10-08] MEDS: Dyna-Hex 2% Top Sol 2oz TOPIC SCH (19:55)
--- NOTE | 2020-10-08 19:55 | NUR ---
NURSE NOTES: LE:PATIENT ASLEEP STATUS, ON ETT TO VENT AC 16/TV 500/FIO2 30%/PEEP 5. O2 SATURATION 98% NOTED, HR 90'S/MIN SR, NGT INTACT AND PATENT, ONGOING GLUCERNA 1.2 AT 20 ML/HR, RESIDUE 20ML NOTED, KEPT HOB 30 DEGREES, SZ AND ASPIRATION PRECAUTION, F/C INTACT AND PATENT, FALGUNI COLOR URINE OUTED, TLC TO RIGHT IJ AND SHEY CATH W/ PIG TAIL TO LEFT IJ, INTACT AND PATENT, ONGOING IV FLUID D5W 1/2NS AT 75ML/HR AND LEVOPHED 4MCG/MIN VIA LEFT SIDE IJ TLC, ON BED ALARM AND LOCKED, MADE LOWER BED POSITION, CLL LIGHT WITHIN REACH, WILL CONTINUE TO MONITOR. Addendum: 10/08/20 at 2221 by JOSE ANTONIO MONROE RN NURSE NOTES: LE:PATIENT ASLEEP STATUS, ON ETT TO VENT AC 16/TV 500/FIO2 30%/PEEP 5. O2 SATURATION 98% NOTED, HR 90'S/MIN SR, NGT INTACT AND PATENT, ONGOING NEPRO AT 20 ML/HR, RESIDUE 20ML NOTED, KEPT HOB 30 DEGREES, SZ AND ASPIRATION PRECAUTION, F/C INTACT AND PATENT, FALGUNI COLOR URINE OUTED, TLC TO RIGHT IJ AND SHEY CATH W/ PIG TAIL TO LEFT IJ, INTACT AND PATENT, ONGOING IV FLUID D5W 1/2NS AT 75ML/HR AND LEVOPHED 4MCG/MIN VIA LEFT SIDE IJ TLC, ON BED ALARM AND LOCKED, MADE LOWER BED POSITION, CLL LIGHT WITHIN REACH, WILL CONTINUE TO MONITOR.
--- NOTE | 2020-10-08 21:57 | NUR ---
NURSE NOTES: REPOSITIONED, ORAL CARE WAS DONE.
[2020-10-09] VITALS (43 sets, daily range): BP systolic 76–157; BP diastolic 51–114
--- NOTE | 2020-10-09 00:15 | NUR ---
NURSE NOTES: TOLERATED FEEDING STATUS, ONGOING NEPRO AT 30ML/HR PER PROTOCOLS, WILL CONTINUE TO MONITOR.
--- NOTE | 2020-10-09 02:44 | NUR ---
NURSE NOTES: NO ACUTE DISTRESS NOTED AT THIS TIME.
--- NOTE | 2020-10-09 04:08 | NUR ---
NURSE NOTES: MORNING CARE AND ORAL CARE WAS DONE, NO BM STATUS.
[2020-10-09] MEDS: Hydrocortisone 100mg Inj IV SCH ×3 (05:33→22:21)
--- NOTE | 2020-10-09 06:10 | NUR ---
NURSE NOTES: FOUND BLOODY OOZING FROM LEFT IJ AREA, SECURED AND PRESSURE, WILL CONTINUE TO MONITOR.
[2020-10-09 06:32] LABS: HEMATOCRIT 27.8 % (42.0-52.0); HEMOGLOBIN 9.1 G/DL (14.2-18.0); MEAN CORPUSCULAR VOLUME 96 FL (80-99); PLATELET COUNT 36 K/UL (150-450); RED CELL DISTRIBUTION WIDTH 19.2 % (11.6-14.8); WHITE BLOOD COUNT 18.1 K/UL (4.8-10.8)
--- NOTE | 2020-10-09 07:15 | NUR ---
RESPIRATORY NOTE: Pt received on mechanical ventilation AC/VC 16, 500, +5, 30% FiO2. Pt is intubated with 7.5 ETT secured with an anchorfast 24cm at the lipline. Pt spo2 98% on current settings. Pt is obtunded. Bilateral b/s are rhonchi with equal chest rise. SXN small amt of thick, white/ méndez secretions. Vent is plugged int red outlet. Alarms are on and audible. Ambu bag is at bedside. Plan to wean this morning. Will continue to monitor and follow plan of care.
--- NOTE | 2020-10-09 07:20 | NUR ---
NURSE HAND-OFF REPORT: Latest Vital Signs: Temperature 97.4 , Pulse 78 , B/P 114 /89 , Respiratory Rate 17 , O2 SAT 98 , Mechanical Ventilator, O2 Flow Rate 100.0 . Vital Sign Comment: EKG Rhythm: Sinus Rhythm Rhythm change?: N MD Notified?: N - MD Response: Latest Carty Fall Score: 50 Fall Risk: High Risk Safety Measures: Call light Within Reach, Bed Alarm Zone 1, Side Rails Side Rails x3, Bed position Low and Locked. Fall Precautions: Yellow Socks Door Sign Patient Fall Education Report given to KIRBY LOERA.
--- NOTE | 2020-10-09 07:21 | NUR ---
NURSE NOTES: Received bedside report from KIRBY Gould. Pt's VSS, no signs of distress noted. Pt obtunded, does not follow commands. Pt SR on the cardiac cath lab technologist, HR between 70-80 bpm. Pt intubated, ETT 7.5 at 23 cm lip line with the following vent settings: A/C rate 16, T/V 500, 30% FiO2, Peep 5, O2 sat between 95-100%. Pt has Left NGT with Nepro running at 30mL/hr. Pt has vaughn catheter, draining well, clear yellow urine noted. Skin intact, bony prominences covered and protected with optifoam. Pt has Right IJ TLC and Left IJ Juaquin Catheter with pigtail, no signs of complication or infection noted from site. Pt currently has Levophed running at 6mcg/hr and D5 1/2 NS at 75mL/hr. Pt's HOB at 30 degrees. Bed locked and in lowest position, bed rails up. Safety precautions maintained. Will continue to monitor.
[2020-10-09 07:22] LABS: PHOSPHORUS 3.6 MG/DL (2.5-4.9)
[2020-10-09 07:27] LABS: ALBUMIN 2.3 G/DL (3.4-5.0); ALBUMIN/GLOBULIN RATIO 0.8 (1.0-2.7); BILIRUBIN,TOTAL 0.8 MG/DL (0.2-1.0); CALCIUM 8.8 MG/DL (8.5-10.1); CREATININE 5.3 MG/DL (0.55-1.30); POTASSIUM 2.9 MMOL/L (3.5-5.1)
[2020-10-09] MEDS: Pantoprazole Inj IVP SCH ×2 (09:02→22:20)
[2020-10-09] MEDS: levETIRAcetam 500mg/NS100ml 100 ML IVPB SCH ×2 (09:03→22:21)
--- NOTE | 2020-10-09 09:03 | General Progress Note ---
Subjective ROS Limited/Unobtainable: No Allergies: Coded Allergies: No Known Allergies (Unverified , 09/13/20) Objective Last 24 Hour Vital Signs Date Time Temp Pulse Resp B/P (MAP) Pulse Ox O2 Delivery O2 Flow Rate FiO2 10/09/20 08:00 82 10/09/20 07:25 80 17 30 10/09/20 07:00 115/75 10/09/20 06:30 78 17 114/89 (97) 98 10/09/20 06:30 78 17 10/09/20 06:19 90 17 103/74 (84) 100 10/09/20 06:18 80 16 85/68 (74) 100 10/09/20 06:15 86 16 76/57 (63) 100 10/09/20 06:15 76/57 10/09/20 06:00 95 17 109/75 (86) 100 10/09/20 06:00 109/75 10/09/20 05:30 106 16 111/76 (88) 100 10/09/20 05:11 91 16 30 10/09/20 05:00 107/75 10/09/20 05:00 108 17 107/75 (86) 100 10/09/20 04:00 Mechanical Ventilator 10/09/20 04:00 97.4 85 17 112/77 (89) 100 10/09/20 04:00 112/77 10/09/20 04:00 30 10/09/20 04:00 85 10/09/20 03:05 80 16 30 10/09/20 03:00 120/76 10/09/20 03:00 95 17 120/76 (91) 100 10/09/20 02:00 121/80 10/09/20 02:00 87 17 121/80 (94) 100 10/09/20 01:08 87 16 30 10/09/20 01:00 88 16 110/78 (89) 100 10/09/20 01:00 110/78 10/09/20 00:07 110/67 10/09/20 00:00 Mechanical Ventilator 10/09/20 00:00 82 10/09/20 00:00 97.8 82 17 110/67 (81) 100 10/09/20 00:00 30 10/09/20 00:00 110/67 10/08/20 23:55 83 19 30 10/08/20 23:00 82 17 117/74 (88) 100 10/08/20 23:00 117/74 10/08/20 22:00 114/80 10/08/20 22:00 84 19 114/80 (91) 100 10/08/20 21:57 87 18 30 10/08/20 21:00 83 18 111/80 (90) 100 10/08/20 21:00 111/80 10/08/20 20:00 30 10/08/20 20:00 116/79 10/08/20 20:00 Mechanical Ventilator 10/08/20 20:00 98.0 82 16 116/79 (91) 100 10/08/20 19:55 89 19 30 10/08/20 19:41 76 10/08/20 19:00 90 17 114/75 (88) 100 10/08/20 19:00 114/75 10/08/20 18:00 110/78 10/08/20 18:00 99 19 132/91 (105) 100 10/08/20 17:07 85 15 30 10/08/20 17:00 95 18 122/83 (96) 99 10/08/20 17:00 122/83 10/08/20 16:30 105 23 129/91 (104) 99 10/08/20 16:00 30 10/08/20 16:00 Mechanical Ventilator 10/08/20 16:00 76 10/08/20 16:00 120/83 10/08/20 16:00 96.9 88 19 120/83 (95) 100 10/08/20 15:30 85 19 110/77 (88) 100 10/08/20 15:00 123/83 10/08/20 15:00 87 19 123/83 (96) 100 10/08/20 14:42 84 17 30 30 10/08/20 14:40 100 10/08/20 14:00 94 18 120/88 (99) 100 10/08/20 14:00 120/88 10/08/20 13:00 98 18 127/91 (103) 100 10/08/20 13:00 127/91 10/08/20 12:30 81 17 112/77 (89) 100 10/08/20 12:08 85 16 30 10/08/20 12:00 30 10/08/20 12:00 Mechanical Ventilator 10/08/20 12:00 96.9 79 16 110/72 (85) 100 10/08/20 12:00 110/72 10/08/20 12:00 62 10/08/20 11:30 73 17 108/73 (85) 100 10/08/20 11:00 80 17 116/64 (81) 100 10/08/20 11:00 116/64 10/08/20 10:30 72 17 114/72 (86) 100 10/08/20 10:00 105/75 10/08/20 10:00 79 17 105/75 (85) 100 10/08/20 09:30 74 17 105/72 (83) 100 Intake and Output 10/08/20 10/09/20 19:00 07:00 Intake Total 1566.25 ml 1447.8 ml Output Total 45 ml 60 ml Balance 1521.25 ml 1387.8 ml Free Water 40 ml IV Total 996.25 ml 1167.8 ml Tube Feeding 60 ml 280 ml Other 470 ml Output Urine Total 45 ml 60 ml # Bowel Movements 2 Laboratory Tests 10/09/20 06:10: White Blood Count 18.1H, Red Blood Count 2.90L, Hemoglobin 9.1L, Hematocrit 27.8L, Mean Corpuscular Volume 96, Mean Corpuscular Hemoglobin 31.3H, Mean Corpuscular Hemoglobin Concent 32.7, Red Cell Distribution Width 19.2H, Platelet Count 36L, Mean Platelet Volume 11.0H, Neutrophils (%) (Auto) , Lymphocytes (%) (Auto) , Monocytes (%) (Auto) , Eosinophils (%) (Auto) , Basophils (%) (Auto) , Neutrophils % (Manual) [Pending], Lymphocytes % (Manual) [Pending], Platelet Estimate [Pending], Platelet Morphology [Pending], Sodium Level 144, Potassium Level 2.9L, Chloride Level 108H, Carbon Dioxide Level 24, Anion Gap 13, Blood Urea Nitrogen 43H, Creatinine 5.3H, Estimat Glomerular Filtration Rate 12.8, Glucose Level 222H, Uric Acid 4.8, Calcium Level 8.8, Phosphorus Level 3.6, Magnesium Level 1.9, Total Bilirubin 0.8, Aspartate Amino Transf (AST/SGOT) 50H, Alanine Aminotransferase (ALT/SGPT) 61, Alkaline Phosphatase 73, C-Reactive Protein, Quantitative < 0.4, Pro-B-Type Natriuretic Peptide 5862H, Total Protein 5.2L, Albumin 2.3L, Globulin 2.9, Albumin/Globulin Ratio 0.8L Height (Feet): 6 Height (Inches): 8.00 Weight (Pounds): 165 General Appearance: no apparent distress EENT: normal ENT inspection Neck: supple Cardiovascular: normal rate Respiratory/Chest: decreased breath sounds Abdomen: normal bowel sounds, non tender, soft Extremities: non-tender Assessment/Plan Status: unchanged Assessment/Plan: 1. History of thalassemia. 2. Hypertension. 3. Chronic pancreatitis. 4. Dyslipidemia. 5. Atherosclerosis. 6. GERD. 7. Renal cyst. 8. Peripheral neuropathy. 9. History of colonic polyps. 10. Depression. 11. respiratory failure 12. renal failure 13 anemia 14. ? ileus ngtf daily exam kub reviewed CT Nando Lyles MD Oct 09, 2020 09:03
--- NOTE | 2020-10-09 09:08 | Neurology Progress Note ---
Interim History Interim History ROS Limited/Unobtainable: No Events: on levophed in icu no seizures Objective Physical Exam Last Vital Signs Date Time Temp Pulse Resp B/P (MAP) Pulse Ox O2 Delivery O2 Flow Rate FiO2 10/09/20 08:00 82 10/09/20 07:25 17 30 10/09/20 07:00 115/75 10/09/20 06:30 98 10/09/20 04:00 Mechanical Ventilator 10/09/20 04:00 97.4 10/01/20 04:00 100.0 Laboratory Tests Test 10/09/20 06:10 White Blood Count 18.1 K/UL (4.8-10.8) H Red Blood Count 2.90 M/UL (4.70-6.10) L Hemoglobin 9.1 G/DL (14.2-18.0) L Hematocrit 27.8 % (42.0-52.0) L Mean Corpuscular Volume 96 FL (80-99) Mean Corpuscular Hemoglobin 31.3 PG (27.0-31.0) H Mean Corpuscular Hemoglobin Concent 32.7 G/DL (32.0-36.0) Red Cell Distribution Width 19.2 % (11.6-14.8) H Platelet Count 36 K/UL (150-450) L Mean Platelet Volume 11.0 FL (6.5-10.1) H Neutrophils (%) (Auto) % (45.0-75.0) Lymphocytes (%) (Auto) % (20.0-45.0) Monocytes (%) (Auto) % (1.0-10.0) Eosinophils (%) (Auto) % (0.0-3.0) Basophils (%) (Auto) % (0.0-2.0) Neutrophils % (Manual) Pending Lymphocytes % (Manual) Pending Platelet Estimate Pending Platelet Morphology Pending Sodium Level 144 MMOL/L (136-145) Potassium Level 2.9 MMOL/L (3.5-5.1) L Chloride Level 108 MMOL/L (98-107) H Carbon Dioxide Level 24 MMOL/L (21-32) Anion Gap 13 mmol/L (5-15) Blood Urea Nitrogen 43 mg/dL (7-18) H Creatinine 5.3 MG/DL (0.55-1.30) H Estimat Glomerular Filtration Rate 12.8 mL/min (>60) Glucose Level 222 MG/DL (74-106) H Uric Acid 4.8 MG/DL (2.6-7.2) Calcium Level 8.8 MG/DL (8.5-10.1) Phosphorus Level 3.6 MG/DL (2.5-4.9) Magnesium Level 1.9 MG/DL (1.8-2.4) Total Bilirubin 0.8 MG/DL (0.2-1.0) Aspartate Amino Transf (AST/SGOT) 50 U/L (15-37) H Alanine Aminotransferase (ALT/SGPT) 61 U/L (12-78) Alkaline Phosphatase 73 U/L (46-116) C-Reactive Protein, Quantitative < 0.4 mg/dL (0.00-0.90) Pro-B-Type Natriuretic Peptide 5862 pg/mL (0-125) H Total Protein 5.2 G/DL (6.4-8.2) L Albumin 2.3 G/DL (3.4-5.0) L Globulin 2.9 g/dL Albumin/Globulin Ratio 0.8 (1.0-2.7) L Neurologic Exam Objective Physical Exam: Limited due to patients status unresponsive comatose, Pupils are sluggish, pupils equal reactive to light corneal reflex absent, gag reflex absent facial symmetric motor: spontaneous movement in left hand, sensory responses to suctioning thru trach not to pain. Impression/Recommendations Status: unchanged Diagnostic Impression Imaging: EEG reviewed CT Head: No evidence of acute intracranial hemorrhage, mass effect or cortical edema. MRI recommended for more sensitive evaluation as clinically indicated. Atrophy and nonspecific periventricular hypoattenuation suggestive of chronic ischemic microvascular changes. Assessment And Rec's 1. Anoxic Encephalopathy --> EEG revealed short waves consistent with seizure activity --> S/p recent CODE Blue and intubation --> CT head reviewed as above --> pt having spontaneous movements of his left hand and head no seizure activity reported 2. Abnormal EEG --> Possible subclinical seizure activity, it is not definitive --> Will start patient on presumptive seizure medication, Agree to continue with Keppra 500mg IV BID 3. Acute hypoxemic respiratory failure --> s/p intubation on vent 4. Questionable Pneumonia vs other ---> on abx --> Covid Ag is NEGATIVE, PCR not detected 5. Anemia 6. FTT --> Supportive care 7. CKD --> HD Thank you for allowing us to participate in patient's care, plan of care was discussed with Dr. Jose Armando Camarena who agrees and has reviewed EEG results. Stacy Hinds NP Oct 09, 2020 09:08
[2020-10-09] MEDS: D5 1/2NS 1,000 ML IV SCH (09:14)
--- NOTE | 2020-10-09 09:40 | NUR ---
NURSE NOTES: Pt's tube feeding placement auscultated, tip of tube in stomach. Pt's tube feeding residual checked, 100mL, tube feeding rate maintained at 30mL/hr, will re-check residual. Pt's scheduled medications given per MD order, pt tolerated well. VSS, no signs of distress noted. Will continue to monitor.
--- NOTE | 2020-10-09 09:40 | NUR ---
RESPIRATORY NOTE: Placed pt on CPAP PS 8, +5, 30% FiO2. SBT begins @ 0940. Pt is tolerating well. SpO2 100%. No s/s of respiratory distress noted at this time. Pt in high fowlers position. SXN prior to beginning SBT. Pt is unresponsive but is breathing spontaneously. Monalisa ORR aware. Ambu bag at bedside. Vent is plugged into red outlet and alarms are on and audible. Spont RR 20s Spont VT 200-300s Spont VE 5-7 RSBI 67 NIF -35 Will continue to closely monitor. ABG to be drawn.
[2020-10-09] MEDS ORDERED: D5NS 1000ml IV ONE (10:08)
[2020-10-09] MEDS ORDERED: D5 1/2NS 1000ml IV ONE (10:08)
[2020-10-09] MEDS ORDERED: Sterile Water Irrig 1000ml IRRIG ONE ×2 (10:08→10:10)
[2020-10-09] MEDS ORDERED: NS 275ml ONE ×2 (10:08→10:10)
[2020-10-09] MEDS ORDERED: Tubing IV Secondary IV ONE ×2 (10:08→10:10)
[2020-10-09] MEDS ORDERED: Tubing IV Blood Pump IV ONE (10:10)
--- NOTE | 2020-10-09 10:12 | Surgery Progress Note ---
Surgery Progress Note Subjective Additional Comments intubated on support pressors weaning responding to fluid HD line no longer bleeding Objective Last 24 Hour Vital Signs Date Time Temp Pulse Resp B/P (MAP) Pulse Ox O2 Delivery O2 Flow Rate FiO2 10/09/20 09:40 99 20 30 30 10/09/20 09:00 113/85 10/09/20 08:00 82 10/09/20 08:00 119/82 10/09/20 07:25 80 17 30 10/09/20 07:00 115/75 10/09/20 06:30 78 17 114/89 (97) 98 10/09/20 06:30 78 17 10/09/20 06:19 90 17 103/74 (84) 100 10/09/20 06:18 80 16 85/68 (74) 100 10/09/20 06:15 86 16 76/57 (63) 100 10/09/20 06:15 76/57 10/09/20 06:00 95 17 109/75 (86) 100 10/09/20 06:00 109/75 10/09/20 05:30 106 16 111/76 (88) 100 10/09/20 05:11 91 16 30 10/09/20 05:00 107/75 10/09/20 05:00 108 17 107/75 (86) 100 10/09/20 04:00 Mechanical Ventilator 10/09/20 04:00 97.4 85 17 112/77 (89) 100 10/09/20 04:00 112/77 10/09/20 04:00 30 10/09/20 04:00 85 10/09/20 03:05 80 16 30 10/09/20 03:00 120/76 10/09/20 03:00 95 17 120/76 (91) 100 10/09/20 02:00 121/80 10/09/20 02:00 87 17 121/80 (94) 100 10/09/20 01:08 87 16 30 10/09/20 01:00 88 16 110/78 (89) 100 10/09/20 01:00 110/78 10/09/20 00:07 110/67 10/09/20 00:00 Mechanical Ventilator 10/09/20 00:00 82 10/09/20 00:00 97.8 82 17 110/67 (81) 100 10/09/20 00:00 30 10/09/20 00:00 110/67 10/08/20 23:55 83 19 30 10/08/20 23:00 82 17 117/74 (88) 100 10/08/20 23:00 117/74 10/08/20 22:00 114/80 10/08/20 22:00 84 19 114/80 (91) 100 10/08/20 21:57 87 18 30 10/08/20 21:00 83 18 111/80 (90) 100 10/08/20 21:00 111/80 10/08/20 20:00 30 10/08/20 20:00 116/79 10/08/20 20:00 Mechanical Ventilator 10/08/20 20:00 98.0 82 16 116/79 (91) 100 10/08/20 19:55 89 19 30 10/08/20 19:41 76 10/08/20 19:00 90 17 114/75 (88) 100 10/08/20 19:00 114/75 10/08/20 18:00 110/78 10/08/20 18:00 99 19 132/91 (105) 100 10/08/20 17:07 85 15 30 10/08/20 17:00 95 18 122/83 (96) 99 10/08/20 17:00 122/83 10/08/20 16:30 105 23 129/91 (104) 99 10/08/20 16:00 30 10/08/20 16:00 Mechanical Ventilator 10/08/20 16:00 76 10/08/20 16:00 120/83 10/08/20 16:00 96.9 88 19 120/83 (95) 100 10/08/20 15:30 85 19 110/77 (88) 100 10/08/20 15:00 123/83 10/08/20 15:00 87 19 123/83 (96) 100 10/08/20 14:42 84 17 30 30 10/08/20 14:40 100 10/08/20 14:00 94 18 120/88 (99) 100 10/08/20 14:00 120/88 10/08/20 13:00 98 18 127/91 (103) 100 10/08/20 13:00 127/91 10/08/20 12:30 81 17 112/77 (89) 100 10/08/20 12:08 85 16 30 10/08/20 12:00 30 10/08/20 12:00 Mechanical Ventilator 10/08/20 12:00 96.9 79 16 110/72 (85) 100 10/08/20 12:00 110/72 10/08/20 12:00 62 10/08/20 11:30 73 17 108/73 (85) 100 10/08/20 11:00 80 17 116/64 (81) 100 10/08/20 11:00 116/64 10/08/20 10:30 72 17 114/72 (86) 100 I&O Intake and Output 10/08/20 10/09/20 19:00 07:00 Intake Total 1566.25 ml 1447.8 ml Output Total 45 ml 60 ml Balance 1521.25 ml 1387.8 ml Free Water 40 ml IV Total 996.25 ml 1167.8 ml Tube Feeding 60 ml 280 ml Other 470 ml Output Urine Total 45 ml 60 ml # Bowel Movements 2 Dressing: saturated Cardiovascular: RSR Respiratory: decreased breath sounds Abdomen: soft, non-tender, present bowel sounds, non-distended Extremities: no tenderness, no cyanosis Laboratory Tests Test 10/09/20 06:10 White Blood Count 18.1 K/UL (4.8-10.8) H Red Blood Count 2.90 M/UL (4.70-6.10) L Hemoglobin 9.1 G/DL (14.2-18.0) L Hematocrit 27.8 % (42.0-52.0) L Mean Corpuscular Volume 96 FL (80-99) Mean Corpuscular Hemoglobin 31.3 PG (27.0-31.0) H Mean Corpuscular Hemoglobin Concent 32.7 G/DL (32.0-36.0) Red Cell Distribution Width 19.2 % (11.6-14.8) H Platelet Count 36 K/UL (150-450) L Mean Platelet Volume 11.0 FL (6.5-10.1) H Neutrophils (%) (Auto) % (45.0-75.0) Lymphocytes (%) (Auto) % (20.0-45.0) Monocytes (%) (Auto) % (1.0-10.0) Eosinophils (%) (Auto) % (0.0-3.0) Basophils (%) (Auto) % (0.0-2.0) Neutrophils % (Manual) Pending Lymphocytes % (Manual) Pending Platelet Estimate Pending Platelet Morphology Pending Sodium Level 144 MMOL/L (136-145) Potassium Level 2.9 MMOL/L (3.5-5.1) L Chloride Level 108 MMOL/L (98-107) H Carbon Dioxide Level 24 MMOL/L (21-32) Anion Gap 13 mmol/L (5-15) Blood Urea Nitrogen 43 mg/dL (7-18) H Creatinine 5.3 MG/DL (0.55-1.30) H Estimat Glomerular Filtration Rate 12.8 mL/min (>60) Glucose Level 222 MG/DL (74-106) H Uric Acid 4.8 MG/DL (2.6-7.2) Calcium Level 8.8 MG/DL (8.5-10.1) Phosphorus Level 3.6 MG/DL (2.5-4.9) Magnesium Level 1.9 MG/DL (1.8-2.4) Total Bilirubin 0.8 MG/DL (0.2-1.0) Aspartate Amino Transf (AST/SGOT) 50 U/L (15-37) H Alanine Aminotransferase (ALT/SGPT) 61 U/L (12-78) Alkaline Phosphatase 73 U/L (46-116) C-Reactive Protein, Quantitative < 0.4 mg/dL (0.00-0.90) Pro-B-Type Natriuretic Peptide 5862 pg/mL (0-125) H Total Protein 5.2 G/DL (6.4-8.2) L Albumin 2.3 G/DL (3.4-5.0) L Globulin 2.9 g/dL Albumin/Globulin Ratio 0.8 (1.0-2.7) L Plan Problems: (1) Cardiopulmonary arrest (2) Septic shock Assessment & Plan: 75 male leukocytosis lactic acidosis septic shock intubated intensive care unit. Unable to give abdominal exam, exam otherwise benign abdominal unlikely etiology imaging reviewed labs reviewed. Continue ventilator support respiratory in nature seemingly. NG tube IV fluids IV antibiotics will follow with recommendations thank you letter participation's care bleeding from HD cath site ddavp ordered will monitor DAILY ESTIMATED NEEDS: Needs based on Critical care 74.2kg 22-28 kcals/kg 8607-1568 total kcals 1.2-2 g protein/kg 89-148 g total protein 25-30 mL/kg 8530-0726 total fluid mLs NUTRITION DIAGNOSIS: Swallowing difficulty r/t respiratory arrest as evidenced by pt intubated, on pressor support, ICU status. ENTERAL NUTRITION RECOMMENDATIONS: As able NEPRO @40ml/hr x24 hrs to provide 960ml, 1728 kcal, 78g pro, 698ml free H2O -When stable for feeds rec renal formula at this time d/t increasing K and phos. -obtain GI access, initiate Nepro @20ml/hr for 6 hrs, advance as tolerated 10ml/hr 2q4-6 hrs to goal -When tolerating TF at goal, add prosource 1 pack BID to better meet est pro needs. -Flush per . HOB over 30 degrees. ----> If hemodynamically unstable, rec trophic feeds of Nepro @10ml/hr to maintain gut integrity. ADDITIONAL RECOMMENDATIONS: 1) F/up w/ H&P 2) Maintain D5 IV hydration while NPO 3) Maintain calibrated bed scale wts 4) Non oral feeds when stable (3) Lactic acidosis (4) Failure to thrive (5) Pancytopenia (6) Respiratory failure (7) Hypoxia (8) Pneumonia (9) Respiratory arrest (10) Hypernatremia (11) Renal failure Oni Walker Oct 09, 2020 10:12
--- NOTE | 2020-10-09 11:02 | Infectious Diseases Prog Note ---
Assessment/Plan 75 yo male with PMHx of failure to thrive, HTN, thalassemia, pancytopenia, HLD, Depression who was sent to the ED from his long term for AMS. Septic Shock PNA Acute hypoxic resp failure sp VDRF -10/04 sp Cx - K. Pnaumo -10/01 sp cx S. aureus (MSSA), K. pna (r amp; otherwise S) -09/30 COVID PCr neg -09/30 CXR: Bibasilar atelectasis versus infiltrates CXR 09/29/20 - Left basilar atelectasis. No acute process otherwise. Evidence of old granulomatous disease rapid covid ag neg , PCR : neg S. epi bacteremia- contaminant vs real -10/03 Bcx NGTD -09/29 BCx 09/07 sets S. epi Leukocytosis; increased ( on steroids) No fever -09/30 ucx neg AMS -CT head: New NG tube and mid to distal esophagus. Recommend advancement. Bibasilar atelectasis versus infiltrates Lactic acidosis Failure to thrive HTN Thalassemia Pancytopenia HLD Depression Adenomatous colonic polyps PLAN Continue Ceftriaxone # 3 for K. pneumo PNA - 10/06/20 SP Zosyn #7/7 - 10/03/20 SP Vancomycin #3 - Rpt Cultures( B,U,S) - Monitor CBC and Temps - BCx (periheral and line) - 2d echo Thank you for this consult. [facility] will continue to follow Mr. Vargas while he in hospitalized. Subjective Allergies: Coded Allergies: No Known Allergies (Unverified , 09/13/20) afebrile on pressors WBC increased to 18 Objective Last 24 Hour Vital Signs Date Time Temp Pulse Resp B/P (MAP) Pulse Ox O2 Delivery O2 Flow Rate FiO2 10/09/20 10:00 108/73 10/09/20 10:00 81 16 113/89 (97) 100 10/09/20 09:40 99 20 30 30 10/09/20 09:40 100 10/09/20 09:00 113/85 10/09/20 09:00 88 16 90/65 (73) 100 10/09/20 08:00 97.6 90 16 157/114 (128) 100 10/09/20 08:00 82 10/09/20 08:00 30 10/09/20 08:00 119/82 10/09/20 08:00 Mechanical Ventilator 10/09/20 07:25 80 17 30 10/09/20 07:00 115/75 10/09/20 07:00 82 16 108/87 (94) 99 10/09/20 06:30 78 17 114/89 (97) 98 10/09/20 06:30 78 17 10/09/20 06:19 90 17 103/74 (84) 100 10/09/20 06:18 80 16 85/68 (74) 100 10/09/20 06:15 86 16 76/57 (63) 100 10/09/20 06:15 76/57 10/09/20 06:00 95 17 109/75 (86) 100 10/09/20 06:00 109/75 10/09/20 05:30 106 16 111/76 (88) 100 10/09/20 05:11 91 16 30 10/09/20 05:00 107/75 10/09/20 05:00 108 17 107/75 (86) 100 10/09/20 04:00 Mechanical Ventilator 10/09/20 04:00 97.4 85 17 112/77 (89) 100 10/09/20 04:00 112/77 10/09/20 04:00 30 10/09/20 04:00 85 10/09/20 03:05 80 16 30 10/09/20 03:00 120/76 10/09/20 03:00 95 17 120/76 (91) 100 10/09/20 02:00 121/80 10/09/20 02:00 87 17 121/80 (94) 100 10/09/20 01:08 87 16 30 10/09/20 01:00 88 16 110/78 (89) 100 10/09/20 01:00 110/78 10/09/20 00:07 110/67 10/09/20 00:00 Mechanical Ventilator 10/09/20 00:00 82 10/09/20 00:00 97.8 82 17 110/67 (81) 100 10/09/20 00:00 30 10/09/20 00:00 110/67 10/08/20 23:55 83 19 30 10/08/20 23:00 82 17 117/74 (88) 100 10/08/20 23:00 117/74 10/08/20 22:00 114/80 10/08/20 22:00 84 19 114/80 (91) 100 10/08/20 21:57 87 18 30 10/08/20 21:00 83 18 111/80 (90) 100 10/08/20 21:00 111/80 10/08/20 20:00 30 10/08/20 20:00 116/79 10/08/20 20:00 Mechanical Ventilator 10/08/20 20:00 98.0 82 16 116/79 (91) 100 10/08/20 19:55 89 19 30 10/08/20 19:41 76 10/08/20 19:00 90 17 114/75 (88) 100 10/08/20 19:00 114/75 10/08/20 18:00 110/78 10/08/20 18:00 99 19 132/91 (105) 100 10/08/20 17:07 85 15 30 10/08/20 17:00 95 18 122/83 (96) 99 10/08/20 17:00 122/83 10/08/20 16:30 105 23 129/91 (104) 99 10/08/20 16:00 30 10/08/20 16:00 Mechanical Ventilator 10/08/20 16:00 76 10/08/20 16:00 120/83 10/08/20 16:00 96.9 88 19 120/83 (95) 100 10/08/20 15:30 85 19 110/77 (88) 100 10/08/20 15:00 123/83 10/08/20 15:00 87 19 123/83 (96) 100 10/08/20 14:42 84 17 30 30 10/08/20 14:40 100 10/08/20 14:00 94 18 120/88 (99) 100 10/08/20 14:00 120/88 10/08/20 13:00 98 18 127/91 (103) 100 10/08/20 13:00 127/91 10/08/20 12:30 81 17 112/77 (89) 100 10/08/20 12:08 85 16 30 10/08/20 12:00 30 10/08/20 12:00 Mechanical Ventilator 10/08/20 12:00 96.9 79 16 110/72 (85) 100 10/08/20 12:00 110/72 10/08/20 12:00 62 10/08/20 11:30 73 17 108/73 (85) 100 Height (Feet): 6 Height (Inches): 8.00 Weight (Pounds): 165 HEENT: atraumatic, anicteric Respiratory/Chest: no accessory muscle use Cardiovascular: no JVD Abdomen: non distended Laboratory Tests Test 10/09/20 06:10 White Blood Count 18.1 K/UL (4.8-10.8) H Red Blood Count 2.90 M/UL (4.70-6.10) L Hemoglobin 9.1 G/DL (14.2-18.0) L Hematocrit 27.8 % (42.0-52.0) L Mean Corpuscular Volume 96 FL (80-99) Mean Corpuscular Hemoglobin 31.3 PG (27.0-31.0) H Mean Corpuscular Hemoglobin Concent 32.7 G/DL (32.0-36.0) Red Cell Distribution Width 19.2 % (11.6-14.8) H Platelet Count 36 K/UL (150-450) L Mean Platelet Volume 11.0 FL (6.5-10.1) H Neutrophils (%) (Auto) % (45.0-75.0) Lymphocytes (%) (Auto) % (20.0-45.0) Monocytes (%) (Auto) % (1.0-10.0) Eosinophils (%) (Auto) % (0.0-3.0) Basophils (%) (Auto) % (0.0-2.0) Differential Total Cells Counted 100 Neutrophils % (Manual) 90 % (45-75) H Lymphocytes % (Manual) 5 % (20-45) L Monocytes % (Manual) 5 % (1-10) Eosinophils % (Manual) 0 % (0-3) Basophils % (Manual) 0 % (0-2) Band Neutrophils 0 % (0-8) Platelet Estimate Decreased L Platelet Morphology Normal Hypochromasia 1+ Anisocytosis 2+ Schistocytes Occasional Sodium Level 144 MMOL/L (136-145) Potassium Level 2.9 MMOL/L (3.5-5.1) L Chloride Level 108 MMOL/L (98-107) H Carbon Dioxide Level 24 MMOL/L (21-32) Anion Gap 13 mmol/L (5-15) Blood Urea Nitrogen 43 mg/dL (7-18) H Creatinine 5.3 MG/DL (0.55-1.30) H Estimat Glomerular Filtration Rate 12.8 mL/min (>60) Glucose Level 222 MG/DL (74-106) H Uric Acid 4.8 MG/DL (2.6-7.2) Calcium Level 8.8 MG/DL (8.5-10.1) Phosphorus Level 3.6 MG/DL (2.5-4.9) Magnesium Level 1.9 MG/DL (1.8-2.4) Total Bilirubin 0.8 MG/DL (0.2-1.0) Aspartate Amino Transf (AST/SGOT) 50 U/L (15-37) H Alanine Aminotransferase (ALT/SGPT) 61 U/L (12-78) Alkaline Phosphatase 73 U/L (46-116) C-Reactive Protein, Quantitative < 0.4 mg/dL (0.00-0.90) Pro-B-Type Natriuretic Peptide 5862 pg/mL (0-125) H Total Protein 5.2 G/DL (6.4-8.2) L Albumin 2.3 G/DL (3.4-5.0) L Globulin 2.9 g/dL Albumin/Globulin Ratio 0.8 (1.0-2.7) L Current Medications Medications (Trade) Dose Ordered Sig/Alfredo Route PRN Reason Start Time Stop Time Status Last Admin Dose Admin Acetaminophen (Tylenol) 650 mg EVERY 6 HOURS PRN NG Temp >100.5 09/30/20 02:30 10/30/20 02:29 Allopurinol (allopurinoL) 300 mg DAILY NG 10/06/20 09:00 11/04/20 08:59 10/09/20 09:02 Ceftriaxone Sodium 1 gm/ Dextrose 55 ml @ 110 mls/hr Q24H IVPB 10/07/20 13:30 10/14/20 13:29 10/08/20 13:47 Chlorhexidine Gluconate (Babita-Hex 2%) 1 applic DAILY@2000 TOPIC 09/30/20 20:00 12/29/20 19:59 10/08/20 19:55 Dextrose (Dextrose 50%) 25 ml Q30M PRN IV Hypoglycemia 09/30/20 02:30 12/29/20 02:29 Dextrose (Dextrose 50%) 50 ml Q30M PRN IV Hypoglycemia 09/30/20 02:30 12/29/20 02:29 Dextrose/Sodium Chloride 1,000 ml @ 75 mls/hr [id number] IV 09/30/20 03:30 10/30/20 03:29 10/09/20 09:14 Hydrocortisone (Solu-CORTEF) 100 mg EVERY 8 HOURS IV 09/30/20 14:00 12/29/20 13:59 10/09/20 05:33 Levetiracetam 100 ml @ 400 mls/hr Q12HR IVPB 10/02/20 09:00 12/31/20 08:59 10/09/20 09:03 Norepinephrine Bitartrate 8 mg/ Dextrose 250 ml @ 0 mls/hr Q24H IV 10/08/20 00:00 10/11/20 00:00 10/09/20 00:07 Pantoprazole (Protonix) 40 mg EVERY 12 HOURS IVP 10/07/20 21:00 11/06/20 20:59 10/09/20 09:02 Potassium Chloride 100 ml @ 50 mls/hr ONCE ONCE IVPB 10/09/20 10:45 10/09/20 12:44 Christian Gee MD Oct 09, 2020 11:02
--- NOTE | 2020-10-09 11:10 | NUR ---
NURSE NOTES: Scheduled KCL IV given per MD order for potassium level 2.9, pt tolerated well. VS remain stable, no signs of distress noted. MD Benavidez at bedside to assess patient. MD Benavidez made aware that patient is on ventilator weaning at this time, pt tolerating well. Received order for stat ABG. Will put in order. RT Draper made aware.
--- NOTE | 2020-10-09 11:42 | Pulmonology Progress Note ---
Subjective ROS Limited/Unobtainable: No Interval Events: No change; remains intubated; still on pressors Constitutional: Reports: no symptoms HEENT: Repors: no symptoms Respiratory: Reports: no symptoms Cardiovascular: Reports: no symptoms Gastrointestinal/Abdominal: Reports: no symptoms Genitourinary: Reports: no symptoms Allergies: Coded Allergies: No Known Allergies (Unverified , 09/13/20) Objective Last 24 Hour Vital Signs Date Time Temp Pulse Resp B/P (MAP) Pulse Ox O2 Delivery O2 Flow Rate FiO2 10/09/20 11:15 97 21 30 10/09/20 11:00 105/72 10/09/20 11:00 71 18 105/72 (83) 100 10/09/20 10:00 108/73 10/09/20 10:00 81 16 113/89 (97) 100 10/09/20 09:40 99 20 30 30 10/09/20 09:40 100 10/09/20 09:00 113/85 10/09/20 09:00 88 16 90/65 (73) 100 10/09/20 08:00 97.6 90 16 157/114 (128) 100 10/09/20 08:00 82 10/09/20 08:00 30 10/09/20 08:00 119/82 10/09/20 08:00 Mechanical Ventilator 10/09/20 07:25 80 17 30 10/09/20 07:00 115/75 10/09/20 07:00 82 16 108/87 (94) 99 10/09/20 06:30 78 17 114/89 (97) 98 10/09/20 06:30 78 17 10/09/20 06:19 90 17 103/74 (84) 100 10/09/20 06:18 80 16 85/68 (74) 100 10/09/20 06:15 86 16 76/57 (63) 100 10/09/20 06:15 76/57 10/09/20 06:00 95 17 109/75 (86) 100 10/09/20 06:00 109/75 10/09/20 05:30 106 16 111/76 (88) 100 10/09/20 05:11 91 16 30 10/09/20 05:00 107/75 10/09/20 05:00 108 17 107/75 (86) 100 10/09/20 04:00 Mechanical Ventilator 10/09/20 04:00 97.4 85 17 112/77 (89) 100 10/09/20 04:00 112/77 10/09/20 04:00 30 10/09/20 04:00 85 10/09/20 03:05 80 16 30 10/09/20 03:00 120/76 10/09/20 03:00 95 17 120/76 (91) 100 10/09/20 02:00 121/80 10/09/20 02:00 87 17 121/80 (94) 100 10/09/20 01:08 87 16 30 10/09/20 01:00 88 16 110/78 (89) 100 10/09/20 01:00 110/78 10/09/20 00:07 110/67 10/09/20 00:00 Mechanical Ventilator 10/09/20 00:00 82 10/09/20 00:00 97.8 82 17 110/67 (81) 100 10/09/20 00:00 30 10/09/20 00:00 110/67 10/08/20 23:55 83 19 30 10/08/20 23:00 82 17 117/74 (88) 100 10/08/20 23:00 117/74 10/08/20 22:00 114/80 10/08/20 22:00 84 19 114/80 (91) 100 10/08/20 21:57 87 18 30 10/08/20 21:00 83 18 111/80 (90) 100 10/08/20 21:00 111/80 10/08/20 20:00 30 10/08/20 20:00 116/79 10/08/20 20:00 Mechanical Ventilator 10/08/20 20:00 98.0 82 16 116/79 (91) 100 10/08/20 19:55 89 19 30 10/08/20 19:41 76 10/08/20 19:00 90 17 114/75 (88) 100 10/08/20 19:00 114/75 10/08/20 18:00 110/78 10/08/20 18:00 99 19 132/91 (105) 100 10/08/20 17:07 85 15 30 10/08/20 17:00 95 18 122/83 (96) 99 3/5/21 17:00 122/83 10/08/20 16:30 105 23 129/91 (104) 99 10/08/20 16:00 30 10/08/20 16:00 Mechanical Ventilator 10/08/20 16:00 76 10/08/20 16:00 120/83 10/08/20 16:00 96.9 88 19 120/83 (95) 100 10/08/20 15:30 85 19 110/77 (88) 100 10/08/20 15:00 123/83 10/08/20 15:00 87 19 123/83 (96) 100 10/08/20 14:42 84 17 30 30 10/08/20 14:40 100 10/08/20 14:00 94 18 120/88 (99) 100 10/08/20 14:00 120/88 10/08/20 13:00 98 18 127/91 (103) 100 10/08/20 13:00 127/91 10/08/20 12:30 81 17 112/77 (89) 100 10/08/20 12:08 85 16 30 10/08/20 12:00 30 10/08/20 12:00 Mechanical Ventilator 10/08/20 12:00 96.9 79 16 110/72 (85) 100 10/08/20 12:00 110/72 10/08/20 12:00 62 Intake and Output 10/08/20 10/09/20 19:00 07:00 Intake Total 1566.25 ml 1477.8 ml Output Total 45 ml 60 ml Balance 1521.25 ml 1417.8 ml Free Water 40 ml IV Total 996.25 ml 1167.8 ml Tube Feeding 60 ml 310 ml Other 470 ml Output Urine Total 45 ml 60 ml # Bowel Movements 2 General Appearance: no acute distress HEENT: normocephalic Respiratory: chest wall non-tender Cardiovascular: normal peripheral pulses Abdomen: normal bowel sounds Laboratory Tests 10/09/20 06:10: White Blood Count 18.1H, Red Blood Count 2.90L, Hemoglobin 9.1L, Hematocrit 27.8L, Mean Corpuscular Volume 96, Mean Corpuscular Hemoglobin 31.3H, Mean Corpuscular Hemoglobin Concent 32.7, Red Cell Distribution Width 19.2H, Platelet Count 36L, Mean Platelet Volume 11.0H, Neutrophils (%) (Auto) , Lymphocytes (%) (Auto) , Monocytes (%) (Auto) , Eosinophils (%) (Auto) , Basophils (%) (Auto) , Differential Total Cells Counted 100, Neutrophils % (Manual) 90H, Lymphocytes % (Manual) 5L, Monocytes % (Manual) 5, Eosinophils % (Manual) 0, Basophils % (Manual) 0, Band Neutrophils 0, Platelet Estimate DecreasedL, Platelet Morpholog y Normal, Hypochromasia 1+, Anisocytosis 2+, Schistocytes Occasional, Sodium Level 144, Potassium Level 2.9L, Chloride Level 108H, Carbon Dioxide Level 24, Anion Gap 13, Blood Urea Nitrogen 43H, Creatinine 5.3H, Estimat Glomerular Filtration Rate 12.8, Glucose Level 222H, Uric Acid 4.8, Calcium Level 8.8, Phosphorus Level 3.6, Magnesium Level 1.9, Total Bilirubin 0.8, Aspartate Amino Transf (AST/SGOT) 50H, Alanine Aminotransferase (ALT/SGPT) 61, Alkaline Phosphatase 73, C-Reactive Protein, Quantitative < 0.4, Pro-B-Type Natriuretic Peptide 5862H, Total Protein 5.2L, Albumin 2.3L, Globulin 2.9, Albumin/Globulin Ratio 0.8L 10/09/20 11:25: Arterial Blood pH 7.380, Arterial Blood Partial Pressure CO2 35.6, Arterial Blood Partial Pressure O2 298.0H, Arterial Blood HCO3 20.6L, Arterial Blood Oxygen Saturation 98.9, Arterial Blood Base Excess -4.0L, Onesimo Test Positive Current Medications Medications (Trade) Dose Ordered Sig/Alfredo Route PRN Reason Start Time Stop Time Status Last Admin Dose Admin Acetaminophen (Tylenol) 650 mg EVERY 6 HOURS PRN NG Temp >100.5 09/30/20 02:30 10/30/20 02:29 Allopurinol (allopurinoL) 300 mg DAILY NG 10/06/20 09:00 11/04/20 08:59 10/09/20 09:02 Ceftriaxone Sodium 1 gm/ Dextrose 55 ml @ 110 mls/hr Q24H IVPB 10/07/20 13:30 10/14/20 13:29 10/08/20 13:47 Chlorhexidine Gluconate (Babita-Hex 2%) 1 applic DAILY@2000 TOPIC 09/30/20 20:00 12/29/20 19:59 10/08/20 19:55 Dextrose (Dextrose 50%) 25 ml Q30M PRN IV Hypoglycemia 09/30/20 02:30 12/29/20 02:29 Dextrose (Dextrose 50%) 50 ml Q30M PRN IV Hypoglycemia 09/30/20 02:30 12/29/20 02:29 Dextrose/Sodium Chloride 1,000 ml @ 75 mls/hr [id number] IV 09/30/20 03:30 10/30/20 03:29 10/09/20 09:14 Hydrocortisone (Solu-CORTEF) 100 mg EVERY 8 HOURS IV 09/30/20 14:00 12/29/20 13:59 10/09/20 05:33 Levetiracetam 100 ml @ 400 mls/hr Q12HR IVPB 10/02/20 09:00 12/31/20 08:59 10/09/20 09:03 Norepinephrine Bitartrate 8 mg/ Dextrose 250 ml @ 0 mls/hr Q24H IV 10/08/20 00:00 10/11/20 00:00 10/09/20 00:07 Pantoprazole (Protonix) 40 mg EVERY 12 HOURS IVP 10/07/20 21:00 11/06/20 20:59 10/09/20 09:02 Potassium Chloride 100 ml @ 50 mls/hr ONCE ONCE IVPB 10/09/20 10:45 10/09/20 12:44 10/09/20 11:08 Assessment/Plan Assessment/Plan 1. Respiratory failure. 2. Multiple medical problems consisting of hypertension, thalassemia, chronic pancreatitis, GERD, neuropathy, and depression. 3. Shock; on pressors 4. Acute renal failure and metabolic acidosis 5. Lactic acidemia 6. AMS; CT brain negative 7. Thrombocytopenia DISCUSSION: Code status needs to be discussed with family. Currently the patient is intubated. s/p dialysis Weaning well on CPAP Now FiO2 30%, PEEP 5 Continue IV fluids. Pressors prn DVT and GI prophylaxis. Broad-spectrum antibiotics. I will follow carefully. Bicarb supplementation ABG adequate Discussed with family He remains DNR but intubation OK Will not extubate given poor mental status and pressor usage Dennis Benavidez MD Oct 09, 2020 11:42
--- NOTE | 2020-10-09 12:00 | NUR ---
NURSE NOTES: ABG results given to MD Benavidez. Received order to put patient back on A/C rate 8, T/V 500, fiO2 30%, Peep 5. Made RT Bonny aware. Pt's VSS, afebrile, no signs of distress noted. Will continue to monitor.
--- NOTE | 2020-10-09 12:53 | NUR ---
RESPIRATORY NOTE: Pt tolerated SBT well with no s/s of respiratory distress. Placed back on previously ordered ventilator settings @ 1250. Ruba Donohue RN aware. Pt tolerated CPAP well for 3 hours. Placed back on AC mode per Dr. Benavidez and decreased RR to 8 per new ventilator settings order. Will continue to closely monitor and follow plan of care.
--- NOTE | 2020-10-09 13:21 | Nephrology Progress Note ---
Assessment/Plan Problem List: (1) COURTNEY (acute kidney injury) (2) Cardiopulmonary arrest (3) Respiratory failure (4) Septic shock Assessment Acute renal failure Septic shock Acute respiratory failure CODE STATUS now DNR Plan October 09: Patient due for dialysis today. IV fluids stopped. Patient DNR. Abnormal electrolyte and the dialysis bath adjusted accordingly. Continue per consultants. October 08: Patient was last dialyzed yesterday. Intubated. DNR. Meds and labs reviewed. Potassium supplement given. Continue to monitor renal parameters and dialysis as needed. Patient remains only coanuric. October 07: Patient was dialyzed yesterday. Labs reviewed. Platelets low. Oozing from the site of the dialysis catheter. On low-dose of pressors. Will dialyze today. Will change Pepcid to Protonix IV. Will give DDAVP 50 mcg once. Discussed with KIRBY Tarango. October 06: Status unchanged. Seen in ICU. Discussed with RN. Dialysis catheter and dialysis procedure has not yet been done. Radiology to arrange for catheter insertion today followed by dialysis. Labs reviewed. Medication list reviewed. October 05: Status quo. Labs reviewed. Serum creatinine creeping up. Patient hemodynamically more stable today than a few days ago. Called brother and he is agreeable for a trial of dialysis treatment with the hope to reverse the acute component of the renal failure. Nontunneled catheter placement ordered. Dialysis ordered. Continue to monitor renal parameters. Medication list reviewed. Discussed with RN and charge nurse. October 04: Status quo. Intubated on ventilator. Labs reviewed. Serum creatinine is plateauing. Trial of Zaroxolyn and 25% albumin infusion given. Abnormal electrolytes addressed. Continue as is. October 03: Continues to be on 6 mics of Levophed. Urine output 350 cc past 24 hours. No urine output since this morning. Labs reviewed. Discussed with KIRBY Diallo. Albumin bolus given. Zaroxolyn 1 dose ordered. Serum creatinine appears to be leveling off. Continue to monitor renal parameters. Patient DNR. October 02: Remains on low-dose pressors today almost anuric. Discussed with KIRBY Shook. Labs reviewed. Medication list reviewed. Trial of albumin and Lasix. Continue to monitor renal parameters. Patient DNR. FiO2 40% October 01: Patient clinically more stable. Discussed with KIRBY Tarango. Patient off pressors. ABG improved. Serum creatinine worse. Will start the patient on Bicitra and allopurinol through NG tube. Continue to monitor renal parameters. Per orders. Patient currently DNR. Previously: Pulmonary support Pressors Antibiotics Hydrocortisone Per orders Subjective ROS Limited/Unobtainable: Yes Objective Objective Last 24 Hour Vital Signs Date Time Temp Pulse Resp B/P (MAP) Pulse Ox O2 Delivery O2 Flow Rate FiO2 10/09/20 13:00 95 18 116/87 (97) 100 10/09/20 12:49 104 22 30 10/09/20 12:00 Mechanical Ventilator 10/09/20 12:00 98.2 106 21 123/86 (98) 99 10/09/20 12:00 117/83 10/09/20 12:00 30 10/09/20 11:23 87 10/09/20 11:15 97 21 30 10/09/20 11:00 105/72 10/09/20 11:00 71 18 105/72 (83) 100 10/09/20 10:00 108/73 10/09/20 10:00 81 16 113/89 (97) 100 10/09/20 09:40 99 20 30 30 10/09/20 09:40 100 10/09/20 09:00 113/85 10/09/20 09:00 88 16 90/65 (73) 100 10/09/20 08:00 97.6 90 16 157/114 (128) 100 10/09/20 08:00 82 10/09/20 08:00 30 10/09/20 08:00 119/82 10/09/20 08:00 Mechanical Ventilator 10/09/20 07:25 80 17 30 10/09/20 07:00 115/75 10/09/20 07:00 82 16 108/87 (94) 99 10/09/20 06:30 78 17 114/89 (97) 98 10/09/20 06:30 78 17 10/09/20 06:19 90 17 103/74 (84) 100 10/09/20 06:18 80 16 85/68 (74) 100 10/09/20 06:15 86 16 76/57 (63) 100 10/09/20 06:15 76/57 10/09/20 06:00 95 17 109/75 (86) 100 10/09/20 06:00 109/75 10/09/20 05:30 106 16 111/76 (88) 100 10/09/20 05:11 91 16 30 10/09/20 05:00 107/75 10/09/20 05:00 108 17 107/75 (86) 100 10/09/20 04:00 Mechanical Ventilator 10/09/20 04:00 97.4 85 17 112/77 (89) 100 10/09/20 04:00 112/77 10/09/20 04:00 30 10/09/20 04:00 85 10/09/20 03:05 80 16 30 10/09/20 03:00 120/76 10/09/20 03:00 95 17 120/76 (91) 100 10/09/20 02:00 121/80 10/09/20 02:00 87 17 121/80 (94) 100 10/09/20 01:08 87 16 30 10/09/20 01:00 88 16 110/78 (89) 100 10/09/20 01:00 110/78 10/09/20 00:07 110/67 10/09/20 00:00 Mechanical Ventilator 10/09/20 00:00 82 10/09/20 00:00 97.8 82 17 110/67 (81) 100 10/09/20 00:00 30 10/09/20 00:00 110/67 10/08/20 23:55 83 19 30 10/08/20 23:00 82 17 117/74 (88) 100 10/08/20 23:00 117/74 10/08/20 22:00 114/80 10/08/20 22:00 84 19 114/80 (91) 100 10/08/20 21:57 87 18 30 10/08/20 21:00 83 18 111/80 (90) 100 10/08/20 21:00 111/80 10/08/20 20:00 30 10/08/20 20:00 116/79 10/08/20 20:00 Mechanical Ventilator 10/08/20 20:00 98.0 82 16 116/79 (91) 100 10/08/20 19:55 89 19 30 10/08/20 19:41 76 10/08/20 19:00 90 17 114/75 (88) 100 10/08/20 19:00 114/75 10/08/20 18:00 110/78 10/08/20 18:00 99 19 132/91 (105) 100 10/08/20 17:07 85 15 30 10/08/20 17:00 95 18 122/83 (96) 99 10/08/20 17:00 122/83 10/08/20 16:30 105 23 129/91 (104) 99 10/08/20 16:00 30 10/08/20 16:00 Mechanical Ventilator 10/08/20 16:00 76 10/08/20 16:00 120/83 10/08/20 16:00 96.9 88 19 120/83 (95) 100 10/08/20 15:30 85 19 110/77 (88) 100 10/08/20 15:00 123/83 10/08/20 15:00 87 19 123/83 (96) 100 10/08/20 14:42 84 17 30 30 10/08/20 14:40 100 10/08/20 14:00 94 18 120/88 (99) 100 10/08/20 14:00 120/88 Intake and Output 10/08/20 10/09/20 19:00 07:00 Intake Total 1566.25 ml 1477.8 ml Output Total 45 ml 60 ml Balance 1521.25 ml 1417.8 ml Free Water 40 ml IV Total 996.25 ml 1167.8 ml Tube Feeding 60 ml 310 ml Other 470 ml Output Urine Total 45 ml 60 ml # Bowel Movements 2 Current Medications Medications (Trade) Dose Ordered Sig/Alfredo Route PRN Reason Start Time Stop Time Status Last Admin Dose Admin Acetaminophen (Tylenol) 650 mg EVERY 6 HOURS PRN NG Temp >100.5 09/30/20 02:30 10/30/20 02:29 Allopurinol (allopurinoL) 300 mg DAILY NG 10/06/20 09:00 11/04/20 08:59 10/09/20 09:02 Ceftriaxone Sodium 1 gm/ Dextrose 55 ml @ 110 mls/hr Q24H IVPB 10/07/20 13:30 10/14/20 13:29 10/08/20 13:47 Chlorhexidine Gluconate (Babita-Hex 2%) 1 applic DAILY@2000 TOPIC 09/30/20 20:00 12/29/20 19:59 10/08/20 19:55 Dextrose (Dextrose 50%) 25 ml Q30M PRN IV Hypoglycemia 09/30/20 02:30 12/29/20 02:29 Dextrose (Dextrose 50%) 50 ml Q30M PRN IV Hypoglycemia 09/30/20 02:30 12/29/20 02:29 Dextrose/Sodium Chloride 1,000 ml @ 75 mls/hr [id number] IV 09/30/20 03:30 10/30/20 03:29 10/09/20 09:14 Hydrocortisone (Solu-CORTEF) 100 mg EVERY 8 HOURS IV 09/30/20 14:00 12/29/20 13:59 10/09/20 05:33 Levetiracetam 100 ml @ 400 mls/hr Q12HR IVPB 10/02/20 09:00 12/31/20 08:59 10/09/20 09:03 Norepinephrine Bitartrate 8 mg/ Dextrose 250 ml @ 0 mls/hr Q24H IV 10/08/20 00:00 10/11/20 00:00 10/09/20 00:07 Pantoprazole (Protonix) 40 mg EVERY 12 HOURS IVP 10/07/20 21:00 11/06/20 20:59 10/09/20 09:02 Laboratory Tests 10/09/20 06:10: White Blood Count 18.1H, Red Blood Count 2.90L, Hemoglobin 9.1L, Hematocrit 27.8L, Mean Corpuscular Volume 96, Mean Corpuscular Hemoglobin 31.3H, Mean Corpuscular Hemoglobin Concent 32.7, Red Cell Distribution Width 19.2H, Platelet Count 36L, Mean Platelet Volume 11.0H, Neutrophils (%) (Auto) , Lymphocytes (%) (Auto) , Monocytes (%) (Auto) , Eosinophils (%) (Auto) , Basophils (%) (Auto) , Differential Total Cells Counted 100, Neutrophils % (Manual) 90H, Lymphocytes % (Manual) 5L, Monocytes % (Manual) 5, Eosinophils % (Manual) 0, Basophils % (Manual) 0, Band Neutrophils 0, Platelet Estimate DecreasedL, Platelet Morph ology Normal, Hypochromasia 1+, Anisocytosis 2+, Schistocytes Occasional, Sodium Level 144, Potassium Level 2.9L, Chloride Level 108H, Carbon Dioxide Level 24, Anion Gap 13, Blood Urea Nitrogen 43H, Creatinine 5.3H, Estimat Glomerular Filtration Rate 12.8, Glucose Level 222H, Uric Acid 4.8, Calcium Level 8.8, Phosphorus Level 3.6, Magnesium Level 1.9, Total Bilirubin 0.8, Aspartate Amino Transf (AST/SGOT) 50H, Alanine Aminotransferase (ALT/SGPT) 61, Alkaline Phosphatase 73, C-Reactive Protein, Quantitative < 0.4, Pro-B-Type Natriuretic Peptide 5862H, Total Protein 5.2L, Albumin 2.3L, Globulin 2.9, Albumin/Globulin Ratio 0.8L 10/09/20 11:25: Arterial Blood pH 7.380, Arterial Blood Partial Pressure CO2 35.6, Arterial Blood Partial Pressure O2 298.0H, Arterial Blood HCO3 20.6L, Arterial Blood Oxygen Saturation 98.9, Arterial Blood Base Excess -4.0L, Onesimo Test Positive Height (Feet): 6 Height (Inches): 8.00 Weight (Pounds): 165 General Appearance: no apparent distress EENT: other - Intubated on ventilator. FiO2 30% Cardiovascular: tachycardia Respiratory/Chest: decreased breath sounds Abdomen: distended Angel Whitehead MD Oct 09, 2020 13:21
[2020-10-09] MEDS: cefTRIAXone 1 GM in D5W 55 ML IVPB SCH (13:49)
--- NOTE | 2020-10-09 14:00 | NUR ---
NURSE NOTES: Pt's tube feeding residual checked, 50mL, tube feeding rate increased to 40mL/hr. Scheduled medications given per MD order, pt tolerated well. VSS, afebrile, no signs of distress noted. ROCCO Hensley called HD RN for scheduled dialysis today. Will continue to monitor pt.
--- NOTE | 2020-10-09 15:20 | Internal Med Progress Note ---
Subjective Date of Service: Oct 09, 2020 Physician Name Semaj Kay Attending Physician Ken Hutton MD Current Medications Medications (Trade) Dose Ordered Sig/Alfredo Route PRN Reason Start Time Stop Time Status Last Admin Dose Admin Acetaminophen (Tylenol) 650 mg EVERY 6 HOURS PRN NG Temp >100.5 09/30/20 02:30 10/30/20 02:29 Ceftriaxone Sodium 1 gm/ Dextrose 55 ml @ 110 mls/hr Q24H IVPB 10/07/20 13:30 10/14/20 13:29 10/09/20 13:49 Chlorhexidine Gluconate (Babita-Hex 2%) 1 applic DAILY@2000 TOPIC 09/30/20 20:00 12/29/20 19:59 10/08/20 19:55 Dextrose (Dextrose 50%) 25 ml Q30M PRN IV Hypoglycemia 09/30/20 02:30 12/29/20 02:29 Dextrose (Dextrose 50%) 50 ml Q30M PRN IV Hypoglycemia 09/30/20 02:30 12/29/20 02:29 Hydrocortisone (Solu-CORTEF) 100 mg EVERY 8 HOURS IV 09/30/20 14:00 12/29/20 13:59 10/09/20 13:49 Levetiracetam 100 ml @ 400 mls/hr Q12HR IVPB 10/02/20 09:00 12/31/20 08:59 10/09/20 09:03 Norepinephrine Bitartrate 8 mg/ Dextrose 250 ml @ 0 mls/hr Q24H IV 10/08/20 00:00 10/11/20 00:00 10/09/20 00:07 Pantoprazole (Protonix) 40 mg EVERY 12 HOURS IVP 10/07/20 21:00 11/06/20 20:59 10/09/20 09:02 Allergies: Coded Allergies: No Known Allergies (Unverified , 09/13/20) ROS Limited/Unobtainable: Yes Subjective 75 YO M with recent diagnosis of thalassemia admitted with altered mental status. S/P cardiopulmonary arrest 09/29/20. Intubated and sedated. ICU. Cover for Int Sudeep-Dr Hutton Objective Last Vital Signs Date Time Temp Pulse Resp B/P (MAP) Pulse Ox O2 Delivery O2 Flow Rate FiO2 10/09/20 15:00 119/52 10/09/20 15:00 88 15 99 10/09/20 12:49 30 10/09/20 12:00 Mechanical Ventilator 10/09/20 12:00 98.2 10/01/20 04:00 100.0 Laboratory Tests Test 10/09/20 06:10 10/09/20 11:25 White Blood Count 18.1 K/UL (4.8-10.8) H Red Blood Count 2.90 M/UL (4.70-6.10) L Hemoglobin 9.1 G/DL (14.2-18.0) L Hematocrit 27.8 % (42.0-52.0) L Mean Corpuscular Volume 96 FL (80-99) Mean Corpuscular Hemoglobin 31.3 PG (27.0-31.0) H Mean Corpuscular Hemoglobin Concent 32.7 G/DL (32.0-36.0) Red Cell Distribution Width 19.2 % (11.6-14.8) H Platelet Count 36 K/UL (150-450) L Mean Platelet Volume 11.0 FL (6.5-10.1) H Neutrophils (%) (Auto) % (45.0-75.0) Lymphocytes (%) (Auto) % (20.0-45.0) Monocytes (%) (Auto) % (1.0-10.0) Eosinophils (%) (Auto) % (0.0-3.0) Basophils (%) (Auto) % (0.0-2.0) Differential Total Cells Counted 100 Neutrophils % (Manual) 90 % (45-75) H Lymphocytes % (Manual) 5 % (20-45) L Monocytes % (Manual) 5 % (1-10) Eosinophils % (Manual) 0 % (0-3) Basophils % (Manual) 0 % (0-2) Band Neutrophils 0 % (0-8) Platelet Estimate Decreased L Platelet Morphology Normal Hypochromasia 1+ Anisocytosis 2+ Schistocytes Occasional Sodium Level 144 MMOL/L (136-145) Potassium Level 2.9 MMOL/L (3.5-5.1) L Chloride Level 108 MMOL/L (98-107) H Carbon Dioxide Level 24 MMOL/L (21-32) Anion Gap 13 mmol/L (5-15) Blood Urea Nitrogen 43 mg/dL (7-18) H Creatinine 5.3 MG/DL (0.55-1.30) H Estimat Glomerular Filtration Rate 12.8 mL/min (>60) Glucose Level 222 MG/DL (74-106) H Uric Acid 4.8 MG/DL (2.6-7.2) Calcium Level 8.8 MG/DL (8.5-10.1) Phosphorus Level 3.6 MG/DL (2.5-4.9) Magnesium Level 1.9 MG/DL (1.8-2.4) Total Bilirubin 0.8 MG/DL (0.2-1.0) Aspartate Amino Transf (AST/SGOT) 50 U/L (15-37) H Alanine Aminotransferase (ALT/SGPT) 61 U/L (12-78) Alkaline Phosphatase 73 U/L (46-116) C-Reactive Protein, Quantitative < 0.4 mg/dL (0.00-0.90) Pro-B-Type Natriuretic Peptide 5862 pg/mL (0-125) H Total Protein 5.2 G/DL (6.4-8.2) L Albumin 2.3 G/DL (3.4-5.0) L Globulin 2.9 g/dL Albumin/Globulin Ratio 0.8 (1.0-2.7) L Arterial Blood pH 7.380 (7.350-7.450) Arterial Blood Partial Pressure CO2 35.6 mmHg (35.0-45.0) Arterial Blood Partial Pressure O2 298.0 mmHg (75.0-100.0) H Arterial Blood HCO3 20.6 mmol/L (22.0-26.0) L Arterial Blood Oxygen Saturation 98.9 % (95-100) Arterial Blood Base Excess -4.0 (-2-2) L Onesimo Test Positive Intake and Output 10/08/20 10/09/20 19:00 07:00 Intake Total 1566.25 ml 1477.8 ml Output Total 45 ml 60 ml Balance 1521.25 ml 1417.8 ml Free Water 40 ml IV Total 996.25 ml 1167.8 ml Tube Feeding 60 ml 310 ml Other 470 ml Output Urine Total 45 ml 60 ml # Bowel Movements 2 Objective Physical Exam General Appearance: lethargic Lines, tubes and drains: central line - R IJ HEENT: normocephalic, atraumatic, other - Pupils are 2 mm and sluggish reaction to light. Neck: non-tender Respiratory/Chest: Mech vent; lungs with rhonchi and wheezes bilat Cardiovascular/Chest: normal rate Abdomen: no mass, hypoactive bowel sounds Extremities: non-pitting Neurologic: unresponsiveness Assessment/Plan Assessment/Plan Assessment/Plan Status: unchanged Assessment/Plan: 75 y/o Male admitted to the Hospital with; # AMS # Acute encephalopathy # Acute hypoxemic respiratory failure # Respiratory acidosis. ABG monitoring. Intubation in the ER Pulmonary/ICU wtih Dr. Benavidez Renal consultation with Dr. Estrada. Add CT head wo contrast to rule out bleed vs other completing today. On route. EEG ordered today as no prior order found. Concern for anoxic brain injury. Seizure disorder # Pneumonia vs other ID consultation with Dr. Ricketts Zosyn and Vancomycin Follow up lactate and wbc, cultures Covid Ag is NEGATIVE, PCR NEG # Thalassemia Recent BM biopsy which was negative per family report. [place] MR number is [id number] ( MR not linked with [facility] database ) Supportive care Consider Hematology follow up as needed Continue maged per neurology=Dr Carranza # FTT - anorexia and weight loss Supportive care RD consult in the next 2 days for nutrition DNR DVT ppx GI ppx R IJ line Replace KCL IV Semaj Kay MD Oct 09, 2020 15:20
--- NOTE | 2020-10-09 16:00 | NUR ---
NURSE NOTES: Notified MD Hutton regarding pt's Platelets of 36 and scant amount of bleeding on Left IJ Juaquin Cath site. Received order for hematology consult by Dr Ponce. MD Kay also at bedside. Per MD Kay, he will contact MD Ponce. Pt's VSS, no signs of distress noted. Will continue to monitor.
--- NOTE | 2020-10-09 17:30 | NUR ---
NURSE NOTES: Spoke with Negin HD RN. Per RN, he will be here in a couple of hours to perform scheduled HD on patient. ROCCO Hnesley made aware. Pt's VS remain stable, no signs of distress noted. Oral care provided, bed bath given, linens and gown changed. Pt's sputum culture and urine culture sent to lab per MD order. Will continue to monitor pt.
--- NOTE | 2020-10-09 18:00 | NUR ---
NURSE NOTES: Central line dressing change done on both Right IJ TLC and Left IJ Jauquin Cath. Pt tolerated well. Scant amount of bleeding noted on patients Left IJ Juaquin Cath. Pt's VSS. Safety precautions maintained. Will continue to monitor.
--- NOTE | 2020-10-09 19:10 | NUR ---
NURSE HAND-OFF REPORT: Latest Vital Signs: Temperature 97.7 , Pulse 69 , B/P 96 /70 , Respiratory Rate 13 , O2 SAT 100 , Mechanical Ventilator, FiO2 30%. Vital Sign Comment: EKG Rhythm: Sinus Rhythm Rhythm change?: N MD Notified?: MD Response: Latest Carty Fall Score: 50 Fall Risk: High Risk Safety Measures: Call light Within Reach, Bed Alarm Zone 1, Side Rails Side Rails x3, Bed position Low and Locked. Fall Precautions: Yellow Socks Door Sign Patient Fall Education Report given to KIRBY Gould for continuity of care. Endorsed pending blood culture and scheduled hemodialysis today. Pt stable..
[2020-10-09] MEDS: Dyna-Hex 2% Top Sol 2oz TOPIC SCH (19:33)
--- NOTE | 2020-10-09 19:40 | NUR ---
NURSE NOTES: PATIENT ASLEEP STATUS, NO OPEN EYES TO VOICE, ON ETT TO VENT AC 8/TV 500/FIO2 30%/PEEP 5. O2 SATURATION 100% NOTED, HR 80'S/MIN SR, NGT INTACT AND PATENT, ONGOING NEPRO AT 40 ML/HR, RESIDUE 30ML NOTED, KEPT HOB 30 DEGREES, SZ AND ASPIRATION PRECAUTION, F/C INTACT AND PATENT, DARK FALGUNI COLOR URINE OUTED, TLC TO RIGHT IJ INTACT AND PATENT AND SHEY CATH W/ PIG TAIL TO LEFT IJ, INTACT, SHEY CATH SITE SLIGHT BLOODY OOZING STATUS, ONGOING LEVOPHED 6MCG/MIN VIA RIGHT SIDE IJ TLC, ON BED ALARM AND LOCKED, MADE LOWER BED POSITION, CALL LIGHT WITHIN REACH, WILL CONTINUE TO MONITOR.
--- NOTE | 2020-10-09 20:10 | NUR ---
NURSE NOTES: ONGOING DIALYSIS AT THIS TIME.
--- NOTE | 2020-10-09 22:10 | NUR ---
NURSE NOTES: FINISHED DIALYSIS, 1000ML WAS REMOVED.
[2020-10-10] VITALS (29 sets, daily range): BP systolic 94–130; BP diastolic 60–85
--- NOTE | 2020-10-10 00:15 | NUR ---
NURSE NOTES: BP 124/74 MMHG, MADE LEVOPHED DRIP 8MCG/MIN, PATIENT ASLEEP STATUS, NO PAIN OR SOB NOTED AT THIS TIME, WILL CONTINUE TO MONITOR.
--- NOTE | 2020-10-10 02:20 | NUR ---
NURSE NOTES: VSS WITH LEVOPHED 8MCG/MIN, TOLERATED FEEDING, WILL CONTINUE TO MONITOR.
--- NOTE | 2020-10-10 04:40 | NUR ---
NURSE NOTES: MORNING CARE AND ORAL CARE WAS DONE, VSS, ONGOING LEVOPHED 8MCG/MIN VIA RIGHT TLC, WILL CONTINUE PLAN OF CARE.
[2020-10-10] MEDS: Hydrocortisone 100mg Inj IV SCH ×3 (05:50→21:36)
--- NOTE | 2020-10-10 06:41 | NUR ---
NURSE NOTES: NO ACUTE DISTRESS NOTED AT THIS SHIFT.
--- NOTE | 2020-10-10 07:17 | NUR ---
NURSE HAND-OFF REPORT: Latest Vital Signs: Temperature 98.0 , Pulse 69 , B/P 106 /64 , Respiratory Rate 10 , O2 SAT 99 , Mechanical Ventilator, O2 Flow Rate 100.0 . Vital Sign Comment: EKG Rhythm: Sinus Rhythm Rhythm change?: N MD Notified?: N - MD Response: Latest Carty Fall Score: 50 Fall Risk: High Risk Safety Measures: Call light Within Reach, Bed Alarm Zone 1, Side Rails Side Rails x3, Bed position Low and Locked. Fall Precautions: Yellow Socks Door Sign Patient Fall Education Report given to KIRBY LOERA.
--- NOTE | 2020-10-10 07:18 | NUR ---
NURSE NOTES: Received bedside report from KIRBY Gould. Pt's VSS, no signs of distress noted. Pt obtunded, does not follow commands. Pt SR on the front desk monitor, HR between 60-80 bpm. Pt intubated, ETT 7.5 at 24 cm lip line with the following vent settings: A/C rate 8, T/V 500, 30% FiO2, Peep 5, O2 sat between 95-100%. Pt has Left NGT with Nepro running at 40mL/hr. Pt has vaughn catheter, draining well, scant amount of son colored urine noted. Skin intact, bony prominences covered and protected with optifoam. Pt has Right IJ TLC and Left IJ Juaquin Catheter with pigtail, no signs of complication or infection noted from site. Pt currently has Levophed running at 8mcg/hr. Pt's HOB at 30 degrees. Bed locked and in lowest position, bed rails up. Safety precautions maintained. Will continue to monitor.
--- NOTE | 2020-10-10 07:25 | NUR ---
RESPIRATORY NOTE: PT received on mechanical ventilation with current orders: AC/VC 8, 500, 30%, +5. Alarms are on and audible. Vent circuit is secure and out of the way. No s/s of acute respiratory distress noted at this time. Will continue to closely monitor.
[2020-10-10 08:11] LABS: HEMOGLOBIN 9.7 G/DL (14.2-18.0); MEAN CORPUSCULAR VOLUME 99 FL (80-99); PLATELET COUNT 45 K/UL (150-450); RED BLOOD COUNT 3.24 M/UL (4.70-6.10); RED CELL DISTRIBUTION WIDTH 20.3 % (11.6-14.8)
[2020-10-10 08:27] LABS: WHITE BLOOD COUNT 30.6 K/UL (4.8-10.8)
[2020-10-10 09:01] LABS: ALANINE AMINOTRANSFERASE 61 U/L (12-78); ALBUMIN 2.4 G/DL (3.4-5.0); ALBUMIN/GLOBULIN RATIO 0.8 (1.0-2.7); ALKALINE PHOSPHATASE 125 U/L (46-116); ANION GAP 12 mmol/L (5-15); ASPARTATE AMINO TRANSFERASE 50 U/L (15-37); BILIRUBIN,TOTAL 0.8 MG/DL (0.2-1.0); BLOOD UREA NITROGEN 36 mg/dL (7-18); CALCIUM 8.9 MG/DL (8.5-10.1); CARBON DIOXIDE 24 MMOL/L (21-32); CHLORIDE 107 MMOL/L (98-107); CREATININE 4.6 MG/DL (0.55-1.30); PHOSPHORUS 3.3 MG/DL (2.5-4.9); POTASSIUM 3.4 MMOL/L (3.5-5.1); SODIUM 143 MMOL/L (136-145)
[2020-10-10] MEDS: Pantoprazole Inj IVP SCH ×2 (09:12→20:23)
[2020-10-10] MEDS: levETIRAcetam 500mg/NS100ml 100 ML IVPB SCH ×2 (09:12→20:24)
--- NOTE | 2020-10-10 09:27 | General Progress Note ---
Subjective ROS Limited/Unobtainable: No Allergies: Coded Allergies: No Known Allergies (Unverified , 09/13/20) Objective Last 24 Hour Vital Signs Date Time Temp Pulse Resp B/P (MAP) Pulse Ox O2 Delivery O2 Flow Rate FiO2 10/10/20 08:00 65 10/10/20 07:25 66 12 30 10/10/20 07:00 69 10 106/64 (78) 99 10/10/20 07:00 106/64 10/10/20 06:30 65 12 10/10/20 06:30 65 12 103/63 (76) 99 10/10/20 06:00 105/63 10/10/20 06:00 69 13 105/63 (77) 99 10/10/20 05:00 85 16 116/77 (90) 98 10/10/20 05:00 116/77 10/10/20 04:00 Mechanical Ventilator 10/10/20 04:00 86 10/10/20 04:00 98.0 83 16 115/77 (90) 98 10/10/20 04:00 115/77 10/10/20 04:00 30 10/10/20 03:17 78 13 30 10/10/20 03:00 77 14 117/76 (90) 98 10/10/20 03:00 117/76 10/10/20 02:30 83 14 123/77 (92) 98 10/10/20 02:00 123/77 10/10/20 02:00 79 15 122/76 (91) 98 10/10/20 01:00 112/68 10/10/20 01:00 66 12 112/68 (83) 98 10/10/20 00:45 72 13 118/65 (82) 97 10/10/20 00:30 82 13 127/74 (91) 97 10/10/20 00:15 87 16 124/74 (91) 97 10/10/20 00:15 124/74 10/10/20 00:00 Mechanical Ventilator 10/10/20 00:00 86 10/10/20 00:00 97.8 86 16 130/85 (100) 98 10/10/20 00:00 130/85 10/10/20 00:00 30 10/09/20 23:56 117/69 10/09/20 23:18 62 14 30 10/09/20 23:00 120/73 10/09/20 23:00 64 12 120/73 (89) 98 10/09/20 22:30 80 17 108/73 (85) 96 10/09/20 22:15 83 21 118/59 (78) 97 10/09/20 22:00 104 16 123/88 (100) 98 10/09/20 22:00 123/88 10/09/20 21:45 80 14 77/52 (60) 98 10/09/20 21:40 93 16 93/65 (74) 98 10/09/20 21:30 99 15 100/72 (81) 98 10/09/20 21:15 91 10 105/62 (76) 98 10/09/20 21:10 96 17 98/69 (79) 98 10/09/20 21:00 93 10 87/62 (70) 100 10/09/20 21:00 87/62 10/09/20 20:55 95 13 91/65 (74) 100 10/09/20 20:50 101 18 92/68 (76) 100 10/09/20 20:45 94 16 81/51 (61) 100 10/09/20 20:45 81/51 10/09/20 20:30 125 23 131/89 (103) 100 10/09/20 20:15 89 6 104/74 (84) 100 10/09/20 20:10 88 9 104/72 (83) 99 10/09/20 20:05 91 17 91/60 (70) 99 10/09/20 20:00 30 10/09/20 20:00 97.8 90 14 88/62 (71) 99 10/09/20 20:00 88/62 10/09/20 20:00 90 10/09/20 20:00 Mechanical Ventilator 10/09/20 19:23 68 14 30 10/09/20 19:00 96/70 10/09/20 19:00 69 13 96/70 (79) 100 10/09/20 19:00 76 15 96/70 (79) 100 10/09/20 18:00 120/77 10/09/20 18:00 100 15 124/76 (92) 100 10/09/20 17:24 87 17 30 10/09/20 17:00 92 15 121/86 (98) 100 10/09/20 17:00 121/86 10/09/20 16:00 97.7 95 20 121/81 (94) 99 10/09/20 16:00 119/83 10/09/20 16:00 97 10/09/20 16:00 30 10/09/20 16:00 Mechanical Ventilator 10/09/20 15:17 91 21 30 10/09/20 15:00 119/52 10/09/20 15:00 88 15 115/84 (94) 99 10/09/20 14:00 96 15 118/87 (97) 100 10/09/20 14:00 89 18 112/84 (93) 100 10/09/20 14:00 112/84 10/09/20 13:00 112/87 10/09/20 13:00 95 18 116/87 (97) 100 10/09/20 12:49 104 22 30 10/09/20 12:00 Mechanical Ventilator 10/09/20 12:00 98.2 106 21 123/86 (98) 99 10/09/20 12:00 117/83 10/09/20 12:00 30 10/09/20 11:23 87 10/09/20 11:15 97 21 30 10/09/20 11:00 105/72 10/09/20 11:00 71 18 105/72 (83) 100 10/09/20 10:00 108/73 10/09/20 10:00 81 16 113/89 (97) 100 10/09/20 09:40 99 20 30 30 10/09/20 09:40 100 Intake and Output 10/09/20 10/10/20 19:00 07:00 Intake Total 1632.50 ml 776.90 ml Output Total 10 ml 1020 ml Balance 1622.50 ml -243.10 ml Free Water 50 ml IV Total 1162.50 ml 296.90 ml Tube Feeding 420 ml 480 ml Output Urine Total 10 ml 20 ml Hemodialysis UF 1000 ml # Bowel Movements 1 2 Laboratory Tests 10/09/20 11:25: Arterial Blood pH 7.380, Arterial Blood Partial Pressure CO2 35.6, Arterial Blood Partial Pressure O2 298.0H, Arterial Blood HCO3 20.6L, Arterial Blood Oxygen Saturation 98.9, Arterial Blood Base Excess -4.0L, Onesimo Test Positive 3/7/21 07:15: White Blood Count 30.6#*H, Red Blood Count 3.24L, Hemoglobin 9.7L, Hematocrit 32.0L, Mean Corpuscular Volume 99, Mean Corpuscular Hemoglobin 30.0, Mean Corpuscular Hemoglobin Concent 30.3L, Red Cell Distribution Width 20.3H, Platelet Count 45L, Mean Platelet Volume 11.0H, Neutrophils (%) (Auto) , Lymphocytes (%) (Auto) , Monocytes (%) (Auto) , Eosinophils (%) (Auto) , Basophils (%) (Auto) , Differential Total Cells Counted 100, Neutrophils % (Manual) 87H, Lymphocytes % (Manual) 6L, Monocytes % (Manual) 7, Eosinophils % (Manual) 0, Basophils % (Manual) 0, Band Neutrophils 0, Platelet Estimate DecreasedL, Platelet Morphology Normal, Hypochromasia 1+, Anisocytosis 2+, Sodi um Level 143, Potassium Level 3.4L, Chloride Level 107, Carbon Dioxide Level 24, Anion Gap 12, Blood Urea Nitrogen 36H, Creatinine 4.6H, Estimat Glomerular Filtration Rate 15.2, Glucose Level 205H, Calcium Level 8.9, Phosphorus Level 3.3, Magnesium Level 1.9, Total Bilirubin 0.8, Aspartate Amino Transf (AST/SGOT) 50H, Alanine Aminotransferase (ALT/SGPT) 61, Alkaline Phosphatase 125H, C- Reactive Protein, Quantitative < 0.4, Pro-B-Type Natriuretic Peptide 8027H, Total Protein 5.6L, Albumin 2.4L, Globulin 3.2, Albumin/Globulin Ratio 0.8L Height (Feet): 6 Height (Inches): 8.00 Weight (Pounds): 165 General Appearance: lethargic EENT: normal ENT inspection Neck: supple Cardiovascular: normal rate Respiratory/Chest: decreased breath sounds Abdomen: hypoactive bowel sounds Extremities: non-tender Assessment/Plan Status: unchanged Assessment/Plan: 1. History of thalassemia. 2. Hypertension. 3. Chronic pancreatitis. 4. Dyslipidemia. 5. Atherosclerosis. 6. GERD. 7. Renal cyst. 8. Peripheral neuropathy. 9. History of colonic polyps. 10. Depression. 11. respiratory failure 12. renal failure 13 anemia 14.ascites ngtf pending paracentesis add reglan for elevated residuals repeat labs hepatitis panel ammonia level Nando Lyles MD Oct 10, 2020 09:27
--- NOTE | 2020-10-10 09:30 | NUR ---
NURSE NOTES: MD Lyles at bedside to assess patient. Made MD Lyles aware of pt's tube feeding residual 150 cc, no orders received. Tube feeding held at this time due to residual, MD Lyles aware. Will re-check residual in a few hours. Pt's VSS, afebrile, no signs of distress noted. Scheduled medications given per MD order, pt tolerated well. Will continue to monitor.
--- NOTE | 2020-10-10 09:52 | Pulmonology Progress Note ---
Subjective ROS Limited/Unobtainable: No Interval Events: No change; remains intubated; still on pressors Constitutional: Reports: no symptoms HEENT: Repors: no symptoms Respiratory: Reports: no symptoms Cardiovascular: Reports: no symptoms Gastrointestinal/Abdominal: Reports: no symptoms Genitourinary: Reports: no symptoms Allergies: Coded Allergies: No Known Allergies (Unverified , 09/13/20) Objective Last 24 Hour Vital Signs Date Time Temp Pulse Resp B/P (MAP) Pulse Ox O2 Delivery O2 Flow Rate FiO2 10/10/20 09:00 67 22 109/64 (79) 100 10/10/20 08:00 65 10/10/20 08:00 30 10/10/20 08:00 74 22 111/68 (82) 100 10/10/20 07:25 66 12 30 10/10/20 07:00 69 10 106/64 (78) 99 10/10/20 07:00 106/64 10/10/20 06:30 65 12 10/10/20 06:30 65 12 103/63 (76) 99 10/10/20 06:00 105/63 10/10/20 06:00 69 13 105/63 (77) 99 10/10/20 05:00 85 16 116/77 (90) 98 10/10/20 05:00 116/77 10/10/20 04:00 Mechanical Ventilator 10/10/20 04:00 86 10/10/20 04:00 98.0 83 16 115/77 (90) 98 10/10/20 04:00 115/77 10/10/20 04:00 30 10/10/20 03:17 78 13 30 10/10/20 03:00 77 14 117/76 (90) 98 10/10/20 03:00 117/76 10/10/20 02:30 83 14 123/77 (92) 98 10/10/20 02:00 123/77 10/10/20 02:00 79 15 122/76 (91) 98 10/10/20 01:00 112/68 10/10/20 01:00 66 12 112/68 (83) 98 10/10/20 00:45 72 13 118/65 (82) 97 10/10/20 00:30 82 13 127/74 (91) 97 10/10/20 00:15 87 16 124/74 (91) 97 10/10/20 00:15 124/74 10/10/20 00:00 Mechanical Ventilator 10/10/20 00:00 86 10/10/20 00:00 97.8 86 16 130/85 (100) 98 10/10/20 00:00 130/85 10/10/20 00:00 30 10/09/20 23:56 117/69 10/09/20 23:18 62 14 30 10/09/20 23:00 120/73 10/09/20 23:00 64 12 120/73 (89) 98 10/09/20 22:30 80 17 108/73 (85) 96 10/09/20 22:15 83 21 118/59 (78) 97 10/09/20 22:00 104 16 123/88 (100) 98 10/09/20 22:00 123/88 10/09/20 21:45 80 14 77/52 (60) 98 10/09/20 21:40 93 16 93/65 (74) 98 10/09/20 21:30 99 15 100/72 (81) 98 10/09/20 21:15 91 10 105/62 (76) 98 10/09/20 21:10 96 17 98/69 (79) 98 10/09/20 21:00 93 10 87/62 (70) 100 10/09/20 21:00 87/62 10/09/20 20:55 95 13 91/65 (74) 100 10/09/20 20:50 101 18 92/68 (76) 100 10/09/20 20:45 94 16 81/51 (61) 100 10/09/20 20:45 81/51 10/09/20 20:30 125 23 131/89 (103) 100 10/09/20 20:15 89 6 104/74 (84) 100 10/09/20 20:10 88 9 104/72 (83) 99 10/09/20 20:05 91 17 91/60 (70) 99 10/09/20 20:00 30 10/09/20 20:00 97.8 90 14 88/62 (71) 99 10/09/20 20:00 88/62 10/09/20 20:00 90 10/09/20 20:00 Mechanical Ventilator 10/09/20 19:23 68 14 30 10/09/20 19:00 96/70 10/09/20 19:00 69 13 96/70 (79) 100 10/09/20 19:00 76 15 96/70 (79) 100 10/09/20 18:00 120/77 10/09/20 18:00 100 15 124/76 (92) 100 10/09/20 17:24 87 17 30 10/09/20 17:00 92 15 121/86 (98) 100 10/09/20 17:00 121/86 10/09/20 16:00 97.7 95 20 121/81 (94) 99 10/09/20 16:00 119/83 10/09/20 16:00 97 10/09/20 16:00 30 10/09/20 16:00 Mechanical Ventilator 10/09/20 15:17 91 21 30 10/09/20 15:00 119/52 10/09/20 15:00 88 15 115/84 (94) 99 10/09/20 14:00 96 15 118/87 (97) 100 10/09/20 14:00 89 18 112/84 (93) 100 10/09/20 14:00 112/84 10/09/20 13:00 112/87 10/09/20 13:00 95 18 116/87 (97) 100 10/09/20 12:49 104 22 30 10/09/20 12:00 Mechanical Ventilator 10/09/20 12:00 98.2 106 21 123/86 (98) 99 10/09/20 12:00 117/83 10/09/20 12:00 30 10/09/20 11:23 87 10/09/20 11:15 97 21 30 10/09/20 11:00 105/72 10/09/20 11:00 71 18 105/72 (83) 100 10/09/20 10:00 108/73 10/09/20 10:00 81 16 113/89 (97) 100 Intake and Output 10/09/20 10/10/20 19:00 07:00 Intake Total 1632.50 ml 776.90 ml Output Total 10 ml 1020 ml Balance 1622.50 ml -243.10 ml Free Water 50 ml IV Total 1162.50 ml 296.90 ml Tube Feeding 420 ml 480 ml Output Urine Total 10 ml 20 ml Hemodialysis UF 1000 ml # Bowel Movements 1 2 General Appearance: no acute distress HEENT: normocephalic Respiratory: chest wall non-tender Cardiovascular: normal peripheral pulses Abdomen: normal bowel sounds Microbiology Date/Time Source Procedure Growth Status 10/09/20 17:30 Sputum Expectorated Gram Stain - Final Resulted 10/09/20 17:30 Sputum Expectorated Sputum Culture - Preliminary NO GROWTH Resulted Laboratory Tests 10/09/20 11:25: Arterial Blood pH 7.380, Arterial Blood Partial Pressure CO2 35.6, Arterial Blood Partial Pressure O2 298.0H, Arterial Blood HCO3 20.6L, Arterial Blood Oxygen Saturation 98.9, Arterial Blood Base Excess -4.0L, Onesimo Test Positive 10/10/20 07:15: White Blood Count 30.6#*H, Red Blood Count 3.24L, Hemoglobin 9.7L, Hematocrit 32.0L, Mean Corpuscular Volume 99, Mean Corpuscular Hemoglobin 30.0, Mean Corpuscular Hemoglobin Concent 30.3L, Red Cell Distribution Width 20.3H, Platelet Count 45L, Mean Platelet Volume 11.0H, Neutrophils (%) (Auto) , Lymphocytes (%) (Auto) , Monocytes (%) (Auto) , Eosinophils (%) (Auto) , Basophils (%) (Auto) , Differential Total Cells Counted 100, Neutrophils % (Manual) 87H, Lymphocytes % (Manual) 6L, Monocytes % (Manual) 7, Eosinophils % (Manual) 0, Basophils % (Manual) 0, Band Neutrophils 0, Platelet Estimate De creasedL, Platelet Morphology Normal, Hypochromasia 1+, Anisocytosis 2+, Sodium Level 143, Potassium Level 3.4L, Chloride Level 107, Carbon Dioxide Level 24, Anion Gap 12, Blood Urea Nitrogen 36H, Creatinine 4.6H, Estimat Glomerular Filtration Rate 15.2, Glucose Level 205H, Calcium Level 8.9, Phosphorus Level 3.3, Magnesium Level 1.9, Total Bilirubin 0.8, Aspartate Amino Transf (AST/SGOT) 50H, Alanine Aminotransferase (ALT/SGPT) 61, Alkaline Phosphatase 125H, C- Reactive Protein, Quantitative < 0.4, Pro-B-Type Natriuretic Peptide 8027H, Total Protein 5.6L, Albumin 2.4L, Globulin 3.2, Albumin/Globulin Ratio 0.8L Current Medications Medications (Trade) Dose Ordered Sig/Alfredo Route PRN Reason Start Time Stop Time Status Last Admin Dose Admin Acetaminophen (Tylenol) 650 mg EVERY 6 HOURS PRN NG Temp >100.5 09/30/20 02:30 10/30/20 02:29 Ceftriaxone Sodium 1 gm/ Dextrose 55 ml @ 110 mls/hr Q24H IVPB 10/07/20 13:30 10/14/20 13:29 10/09/20 13:49 Chlorhexidine Gluconate (Babita-Hex 2%) 1 applic DAILY@2000 TOPIC 09/30/20 20:00 12/29/20 19:59 10/09/20 19:33 Dextrose (Dextrose 50%) 25 ml Q30M PRN IV Hypoglycemia 09/30/20 02:30 12/29/20 02:29 Dextrose (Dextrose 50%) 50 ml Q30M PRN IV Hypoglycemia 09/30/20 02:30 12/29/20 02:29 Hydrocortisone (Solu-CORTEF) 100 mg EVERY 8 HOURS IV 09/30/20 14:00 12/29/20 13:59 10/10/20 05:50 Levetiracetam 100 ml @ 400 mls/hr Q12HR IVPB 10/02/20 09:00 12/31/20 08:59 10/10/20 09:12 Metoclopramide HCl (Reglan) 5 mg Q6H IVP 10/10/20 12:00 11/09/20 11:59 Norepinephrine Bitartrate 8 mg/ Dextrose 250 ml @ 0 mls/hr Q24H IV 10/08/20 00:00 10/11/20 00:00 10/09/20 23:56 Pantoprazole (Protonix) 40 mg EVERY 12 HOURS IVP 10/07/20 21:00 11/06/20 20:59 10/10/20 09:12 Assessment/Plan Assessment/Plan 1. Respiratory failure. 2. Multiple medical problems consisting of hypertension, thalassemia, chronic pancreatitis, GERD, neuropathy, and depression. 3. Shock; on pressors 4. Acute renal failure and metabolic acidosis 5. Lactic acidemia 6. AMS; CT brain negative 7. Thrombocytopenia DISCUSSION: Code status needs to be discussed with family. Currently the patient is intubated. s/p dialysis Weaning well on CPAP Now FiO2 30%, PEEP 5 Continue IV fluids. Pressors prn DVT and GI prophylaxis. Broad-spectrum antibiotics. I will follow carefully. Bicarb supplementation ABG adequate Discussed with family He remains DNR but intubation OK Will not extubate given poor mental status and pressor usage Dennis Benavidez MD Oct 10, 2020 09:52
--- NOTE | 2020-10-10 10:33 | Consultation ---
Consult Note Consult Note HEMATOLOGY/ ONC CONSULTATION DATE OF CONSULTATION: 10/10/2020 [place] MD:Dr. Kay REASON FOR REFERRAL: Anemia Evaluation HPI:This is a 75 year old AA male patient brought in from nursing facility for AMS. He apparently coded and was intubated. According to the ER report he had encephalopathy, his code status is DNR, He is currently in ICU and he is sedated , intubated on the ventilator. A CT Head was ordered and revealed No evidence of acute intracranial hemorrhage, mass effect or cortical edema. Atrophy and nonspecific periventricular hypoattenuation suggestive of chronic ischemic microvascular changes. He is not able to provide a history at this time, will contact [facility] for any seizure history. We were consulted for anemia evaluation. Past Medical History: HLD, Atherosclerosis, Anemia, Hypertension, glaucoma Past Surgical History: unknown Social History: Resides in nursing facility, unknown if smoker, drinker or drug use Allergies: NKDA ROS difficult to obtain due to mentation sedation Physical Exam: pt is camotose. Sedated HEENT: NC/AT. EOMI. Cardiovascular: Irregularly irregular rhythm. Resp: intubated on vent Abdomen: Abdomen is soft, nondistended. Nontender Skin: Intact. MSK: obtunded Neuro: limited exam Lab Data: reviewed IMAGING: CT Head: No evidence of acute intracranial hemorrhage, mass effect or cortical edema. MRIrecommended for more sensitive evaluation as clinically indicated. Atrophy and nonspecific periventricular hypoattenuation suggestive of chronic ischemic microvascular changes. Assessment And Rec's 1. Anemia of Chronic Disease, in chart hx of anemia --> check anemia panel --> transfuse to keep HGB >7 --> cont to monitor HGB trend, stool ob 2. Anoxic Encephalopathy --> S/p recent CODE Blue and intubation --> CT head reviewed as above 3. Acute hypoxemic respiratory failure --> s/p intubation on vent 4. Questionable Pneumonia vs other ---> on abx Covid Ag is NEGATIVE, PCR sent and pending. PUI status 5. FTT --> Supportive care pt is DNR Greatly appreciate consult. Stacy Hinds NP Oct 10, 2020 10:33
--- NOTE | 2020-10-10 10:54 | NUR ---
RESPIRATORY NOTE: PT was placed on CPAP +5, PS 8 for weaning @ 1052. Pt placed back on AC/VC with previous setting at this time due to decrease in blood pressure. Marlena ORR notified.
--- NOTE | 2020-10-10 11:05 | NUR ---
NURSE NOTES: No signs of bleeding or complication noted from patients central lines. Pt's VS remain stable, no signs of distress noted. Safety precautions maintained. Will continue to monitor.
--- NOTE | 2020-10-10 11:07 | Surgery Progress Note ---
Surgery Progress Note Subjective Additional Comments ill appearing on support Objective Last 24 Hour Vital Signs Date Time Temp Pulse Resp B/P (MAP) Pulse Ox O2 Delivery O2 Flow Rate FiO2 10/10/20 11:00 115/74 10/10/20 10:54 71 19 30 10/10/20 10:52 84 20 30 10/10/20 10:48 89 16 30 10/10/20 10:00 103/64 10/10/20 10:00 70 24 105/78 (87) 100 10/10/20 09:00 88/62 10/10/20 09:00 67 22 109/64 (79) 100 10/10/20 08:43 70 13 30 10/10/20 08:20 94/60 10/10/20 08:15 70/54 10/10/20 08:00 Mechanical Ventilator 10/10/20 08:00 97.5 10/10/20 08:00 65 10/10/20 08:00 111/68 10/10/20 08:00 30 10/10/20 08:00 74 22 111/68 (82) 100 10/10/20 07:25 66 12 30 10/10/20 07:00 69 10 106/64 (78) 99 10/10/20 07:00 106/64 10/10/20 06:30 65 12 10/10/20 06:30 65 12 103/63 (76) 99 10/10/20 06:00 105/63 10/10/20 06:00 69 13 105/63 (77) 99 10/10/20 05:00 85 16 116/77 (90) 98 10/10/20 05:00 116/77 10/10/20 04:00 Mechanical Ventilator 10/10/20 04:00 86 10/10/20 04:00 98.0 83 16 115/77 (90) 98 10/10/20 04:00 115/77 10/10/20 04:00 30 10/10/20 03:17 78 13 30 10/10/20 03:00 77 14 117/76 (90) 98 10/10/20 03:00 117/76 10/10/20 02:30 83 14 123/77 (92) 98 10/10/20 02:00 123/77 10/10/20 02:00 79 15 122/76 (91) 98 10/10/20 01:00 112/68 10/10/20 01:00 66 12 112/68 (83) 98 10/10/20 00:45 72 13 118/65 (82) 97 10/10/20 00:30 82 13 127/74 (91) 97 10/10/20 00:15 87 16 124/74 (91) 97 10/10/20 00:15 124/74 10/10/20 00:00 Mechanical Ventilator 10/10/20 00:00 86 10/10/20 00:00 97.8 86 16 130/85 (100) 98 10/10/20 00:00 130/85 10/10/20 00:00 30 10/09/20 23:56 117/69 10/09/20 23:18 62 14 30 10/09/20 23:00 120/73 10/09/20 23:00 64 12 120/73 (89) 98 10/09/20 22:30 80 17 108/73 (85) 96 10/09/20 22:15 83 21 118/59 (78) 97 10/09/20 22:00 104 16 123/88 (100) 98 10/09/20 22:00 123/88 10/09/20 21:45 80 14 77/52 (60) 98 10/09/20 21:40 93 16 93/65 (74) 98 10/09/20 21:30 99 15 100/72 (81) 98 10/09/20 21:15 91 10 105/62 (76) 98 10/09/20 21:10 96 17 98/69 (79) 98 10/09/20 21:00 93 10 87/62 (70) 100 10/09/20 21:00 87/62 10/09/20 20:55 95 13 91/65 (74) 100 10/09/20 20:50 101 18 92/68 (76) 100 10/09/20 20:45 94 16 81/51 (61) 100 10/09/20 20:45 81/51 10/09/20 20:30 125 23 131/89 (103) 100 10/09/20 20:15 89 6 104/74 (84) 100 10/09/20 20:10 88 9 104/72 (83) 99 10/09/20 20:05 91 17 91/60 (70) 99 10/09/20 20:00 30 10/09/20 20:00 97.8 90 14 88/62 (71) 99 10/09/20 20:00 88/62 10/09/20 20:00 90 10/09/20 20:00 Mechanical Ventilator 10/09/20 19:23 68 14 30 10/09/20 19:00 96/70 10/09/20 19:00 69 13 96/70 (79) 100 10/09/20 19:00 76 15 96/70 (79) 100 10/09/20 18:00 120/77 10/09/20 18:00 100 15 124/76 (92) 100 10/09/20 17:24 87 17 30 10/09/20 17:00 92 15 121/86 (98) 100 10/09/20 17:00 121/86 10/09/20 16:00 97.7 95 20 121/81 (94) 99 10/09/20 16:00 119/83 10/09/20 16:00 97 10/09/20 16:00 30 10/09/20 16:00 Mechanical Ventilator 10/09/20 15:17 91 21 30 10/09/20 15:00 119/52 10/09/20 15:00 88 15 115/84 (94) 99 10/09/20 14:00 96 15 118/87 (97) 100 10/09/20 14:00 89 18 112/84 (93) 100 10/09/20 14:00 112/84 10/09/20 13:00 112/87 10/09/20 13:00 95 18 116/87 (97) 100 10/09/20 12:49 104 22 30 10/09/20 12:00 Mechanical Ventilator 10/09/20 12:00 98.2 106 21 123/86 (98) 99 10/09/20 12:00 117/83 10/09/20 12:00 30 10/09/20 11:23 87 10/09/20 11:15 97 21 30 I&O Intake and Output 10/09/20 10/10/20 19:00 07:00 Intake Total 1632.50 ml 776.90 ml Output Total 10 ml 1020 ml Balance 1622.50 ml -243.10 ml Free Water 50 ml IV Total 1162.50 ml 296.90 ml Tube Feeding 420 ml 480 ml Output Urine Total 10 ml 20 ml Hemodialysis UF 1000 ml # Bowel Movements 1 2 Dressing: saturated Cardiovascular: RSR Respiratory: decreased breath sounds Abdomen: soft, non-tender, present bowel sounds Extremities: no tenderness, no cyanosis Laboratory Tests Test 10/09/20 11:25 10/10/20 07:15 Arterial Blood pH 7.380 (7.350-7.450) Arterial Blood Partial Pressure CO2 35.6 mmHg (35.0-45.0) Arterial Blood Partial Pressure O2 298.0 mmHg (75.0-100.0) H Arterial Blood HCO3 20.6 mmol/L (22.0-26.0) L Arterial Blood Oxygen Saturation 98.9 % (95-100) Arterial Blood Base Excess -4.0 (-2-2) L Onesimo Test Positive White Blood Count 30.6 K/UL (4.8-10.8) #*H Red Blood Count 3.24 M/UL (4.70-6.10) L Hemoglobin 9.7 G/DL (14.2-18.0) L Hematocrit 32.0 % (42.0-52.0) L Mean Corpuscular Volume 99 FL (80-99) Mean Corpuscular Hemoglobin 30.0 PG (27.0-31.0) Mean Corpuscular Hemoglobin Concent 30.3 G/DL (32.0-36.0) L Red Cell Distribution Width 20.3 % (11.6-14.8) H Platelet Count 45 K/UL (150-450) L Mean Platelet Volume 11.0 FL (6.5-10.1) H Neutrophils (%) (Auto) % (45.0-75.0) Lymphocytes (%) (Auto) % (20.0-45.0) Monocytes (%) (Auto) % (1.0-10.0) Eosinophils (%) (Auto) % (0.0-3.0) Basophils (%) (Auto) % (0.0-2.0) Differential Total Cells Counted 100 Neutrophils % (Manual) 87 % (45-75) H Lymphocytes % (Manual) 6 % (20-45) L Monocytes % (Manual) 7 % (1-10) Eosinophils % (Manual) 0 % (0-3) Basophils % (Manual) 0 % (0-2) Band Neutrophils 0 % (0-8) Platelet Estimate Decreased L Platelet Morphology Normal Hypochromasia 1+ Anisocytosis 2+ Sodium Level 143 MMOL/L (136-145) Potassium Level 3.4 MMOL/L (3.5-5.1) L Chloride Level 107 MMOL/L (98-107) Carbon Dioxide Level 24 MMOL/L (21-32) Anion Gap 12 mmol/L (5-15) Blood Urea Nitrogen 36 mg/dL (7-18) H Creatinine 4.6 MG/DL (0.55-1.30) H Estimat Glomerular Filtration Rate 15.2 mL/min (>60) Glucose Level 205 MG/DL (74-106) H Calcium Level 8.9 MG/DL (8.5-10.1) Phosphorus Level 3.3 MG/DL (2.5-4.9) Magnesium Level 1.9 MG/DL (1.8-2.4) Total Bilirubin 0.8 MG/DL (0.2-1.0) Aspartate Amino Transf (AST/SGOT) 50 U/L (15-37) H Alanine Aminotransferase (ALT/SGPT) 61 U/L (12-78) Alkaline Phosphatase 125 U/L (46-116) H C-Reactive Protein, Quantitative < 0.4 mg/dL (0.00-0.90) Pro-B-Type Natriuretic Peptide 8027 pg/mL (0-125) H Total Protein 5.6 G/DL (6.4-8.2) L Albumin 2.4 G/DL (3.4-5.0) L Globulin 3.2 g/dL Albumin/Globulin Ratio 0.8 (1.0-2.7) L Plan Problems: (1) Cardiopulmonary arrest (2) Septic shock Assessment & Plan: 75 male leukocytosis lactic acidosis septic shock intubated intensive care unit. Unable to give abdominal exam, exam otherwise benign abdominal unlikely etiology imaging reviewed labs reviewed. Continue ventilator support respiratory in nature seemingly. NG tube IV fluids IV antibiotics will follow with recommendations thank you letter participation's care bleeding from HD cath site ddavp ordered will monitor DAILY ESTIMATED NEEDS: Needs based on Critical care 74.2kg 22-28 kcals/kg 9892-1002 total kcals 1.2-2 g protein/kg 89-148 g total protein 25-30 mL/kg 9131-4579 total fluid mLs NUTRITION DIAGNOSIS: Swallowing difficulty r/t respiratory arrest as evidenced by pt intubated, on pressor support, ICU status. ENTERAL NUTRITION RECOMMENDATIONS: As able NEPRO @40ml/hr x24 hrs to provide 960ml, 1728 kcal, 78g pro, 698ml free H2O -When stable for feeds rec renal formula at this time d/t increasing K and phos. -obtain GI access, initiate Nepro @20ml/hr for 6 hrs, advance as tolerated 10ml/hr 2q4-6 hrs to goal -When tolerating TF at goal, add prosource 1 pack BID to better meet est pro needs. -Flush per HOB over 30 degrees. ----> If hemodynamically unstable, rec trophic feeds of Nepro @10ml/hr to maintain gut integrity. ADDITIONAL RECOMMENDATIONS: 1) F/up w/ H&P 2) Maintain D5 IV hydration while NPO 3) Maintain calibrated bed scale wts 4) Non oral feeds when stable (3) Lactic acidosis (4) Failure to thrive (5) Pancytopenia (6) Respiratory failure (7) Hypoxia (8) Pneumonia (9) Respiratory arrest (10) Hypernatremia (11) Renal failure Oni Walker Oct 10, 2020 11:07
--- NOTE | 2020-10-10 12:16 | NUR ---
RD ASSESSMENT & RECOMMENDATIONS SEE CARE ACTIVITY FOR COMPLETE ASSESSMENT DAILY ESTIMATED NEEDS: Needs based on Critical care, ARF + HD 74.2kg 22-28 kcals/kg 2900-5366 total kcals now w/ HD (1.2-1.8) g protein/kg 89-133 g total protein Fluid per MD, on HD NUTRITION DIAGNOSIS: Swallowing difficulty r/t respiratory arrest as evidenced by pt intubated, on pressor support, ICU status, on NGT feeds. CURRENT TF:Nepro @ 40ml/hr x 24 hrs-> NOW HELD ENTERAL NUTRITION RECOMMENDATIONS: NEPRO @ 40ml/hr x24 hrs +Prosource 1pkt QD to provide 960ml, 1728kcal, 78g +11 prot, 698ml free water - W/ hemodynamic stability, increase goal rate to 40ml/hr x 24 hrs - Add Prosource 1pkt QD for additional 11g prot - HOB over 30 degrees/ water flush per MD ----> If hemodynamically unstable, rec trophic feeds of Nepro @10ml/hr to maintain gut integrity. ADDITIONAL RECOMMENDATIONS: 1) Recalibrate bed scale-> daily wts up from 75kg-> 90.5kg 2) Monitor for continuity of HD, last HD 10/09 3) Monitor lytes- K low, phos and mag wnl at this time 4) Add NISS for elev BGs, pt on steroidal meds 5) Monitor hemodynamic stability: NE now @8mcg . .
[2020-10-10] MEDS: Metoclopramide 10mg/2ml Inj IVP SCH ×3 (12:36→23:59)
[2020-10-10] MEDS: cefTRIAXone 1 GM in D5W 55 ML IVPB SCH (12:36)
--- NOTE | 2020-10-10 13:57 | NUR ---
NURSE NOTES: Scheduled medication given per MD order, pt tolerated well. VS remain stable, no signs of distress noted. No bleeding noted at this time. Will continue to monitor.
--- NOTE | 2020-10-10 14:49 | Internal Med Progress Note ---
Subjective Date of Service: Oct 10, 2020 Physician Name Semaj Kay Attending Physician Ken Hutton MD Current Medications Medications (Trade) Dose Ordered Sig/Alfredo Route PRN Reason Start Time Stop Time Status Last Admin Dose Admin Acetaminophen (Tylenol) 650 mg EVERY 6 HOURS PRN NG Temp >100.5 09/30/20 02:30 10/30/20 02:29 Ceftriaxone Sodium 1 gm/ Dextrose 55 ml @ 110 mls/hr Q24H IVPB 10/07/20 13:30 10/14/20 13:29 10/10/20 12:36 Chlorhexidine Gluconate (Babita-Hex 2%) 1 applic DAILY@2000 TOPIC 09/30/20 20:00 12/29/20 19:59 10/09/20 19:33 Dextrose (Dextrose 50%) 25 ml Q30M PRN IV Hypoglycemia 09/30/20 02:30 12/29/20 02:29 Dextrose (Dextrose 50%) 50 ml Q30M PRN IV Hypoglycemia 09/30/20 02:30 12/29/20 02:29 Hydrocortisone (Solu-CORTEF) 100 mg EVERY 8 HOURS IV 09/30/20 14:00 12/29/20 13:59 10/10/20 13:41 Levetiracetam 100 ml @ 400 mls/hr Q12HR IVPB 10/02/20 09:00 12/31/20 08:59 10/10/20 09:12 Metoclopramide HCl (Reglan) 5 mg Q6H IVP 10/10/20 12:00 11/09/20 11:59 10/10/20 12:36 Norepinephrine Bitartrate 8 mg/ Dextrose 250 ml @ 0 mls/hr Q24H PRN IV DIRECTED 10/10/20 14:17 10/13/20 14:16 Pantoprazole (Protonix) 40 mg EVERY 12 HOURS IVP 10/07/20 21:00 11/06/20 20:59 10/10/20 09:12 Allergies: Coded Allergies: No Known Allergies (Unverified , 09/13/20) ROS Limited/Unobtainable: Yes Subjective 75 YO M with recent diagnosis of thalassemia admitted with altered mental status. S/P cardiopulmonary arrest 09/29/20. Intubated and sedated. ICU. Cover for Int Sudeep-Dr Hutton Objective Last Vital Signs Date Time Temp Pulse Resp B/P (MAP) Pulse Ox O2 Delivery O2 Flow Rate FiO2 10/10/20 14:00 68 26 99/68 (78) 100 10/10/20 13:28 30 10/10/20 12:00 97.7 10/10/20 12:00 Mechanical Ventilator Laboratory Tests Test 10/10/20 07:15 White Blood Count 30.6 K/UL (4.8-10.8) #*H Red Blood Count 3.24 M/UL (4.70-6.10) L Hemoglobin 9.7 G/DL (14.2-18.0) L Hematocrit 32.0 % (42.0-52.0) L Mean Corpuscular Volume 99 FL (80-99) Mean Corpuscular Hemoglobin 30.0 PG (27.0-31.0) Mean Corpuscular Hemoglobin Concent 30.3 G/DL (32.0-36.0) L Red Cell Distribution Width 20.3 % (11.6-14.8) H Platelet Count 45 K/UL (150-450) L Mean Platelet Volume 11.0 FL (6.5-10.1) H Neutrophils (%) (Auto) % (45.0-75.0) Lymphocytes (%) (Auto) % (20.0-45.0) Monocytes (%) (Auto) % (1.0-10.0) Eosinophils (%) (Auto) % (0.0-3.0) Basophils (%) (Auto) % (0.0-2.0) Differential Total Cells Counted 100 Neutrophils % (Manual) 87 % (45-75) H Lymphocytes % (Manual) 6 % (20-45) L Monocytes % (Manual) 7 % (1-10) Eosinophils % (Manual) 0 % (0-3) Basophils % (Manual) 0 % (0-2) Band Neutrophils 0 % (0-8) Platelet Estimate Decreased L Platelet Morphology Normal Hypochromasia 1+ Anisocytosis 2+ Sodium Level 143 MMOL/L (136-145) Potassium Level 3.4 MMOL/L (3.5-5.1) L Chloride Level 107 MMOL/L (98-107) Carbon Dioxide Level 24 MMOL/L (21-32) Anion Gap 12 mmol/L (5-15) Blood Urea Nitrogen 36 mg/dL (7-18) H Creatinine 4.6 MG/DL (0.55-1.30) H Estimat Glomerular Filtration Rate 15.2 mL/min (>60) Glucose Level 205 MG/DL (74-106) H Calcium Level 8.9 MG/DL (8.5-10.1) Phosphorus Level 3.3 MG/DL (2.5-4.9) Magnesium Level 1.9 MG/DL (1.8-2.4) Total Bilirubin 0.8 MG/DL (0.2-1.0) Aspartate Amino Transf (AST/SGOT) 50 U/L (15-37) H Alanine Aminotransferase (ALT/SGPT) 61 U/L (12-78) Alkaline Phosphatase 125 U/L (46-116) H C-Reactive Protein, Quantitative < 0.4 mg/dL (0.00-0.90) Pro-B-Type Natriuretic Peptide 8027 pg/mL (0-125) H Total Protein 5.6 G/DL (6.4-8.2) L Albumin 2.4 G/DL (3.4-5.0) L Globulin 3.2 g/dL Albumin/Globulin Ratio 0.8 (1.0-2.7) L Microbiology Date/Time Source Procedure Growth Status 10/09/20 17:30 Sputum Expectorated Gram Stain - Final Resulted 10/09/20 17:30 Sputum Expectorated Sputum Culture - Preliminary NO GROWTH Resulted Intake and Output 10/09/20 10/10/20 19:00 07:00 Intake Total 1632.50 ml 776.90 ml Output Total 10 ml 1020 ml Balance 1622.50 ml -243.10 ml Free Water 50 ml IV Total 1162.50 ml 296.90 ml Tube Feeding 420 ml 480 ml Output Urine Total 10 ml 20 ml Hemodialysis UF 1000 ml # Bowel Movements 1 2 Objective Physical Exam General Appearance: lethargic Lines, tubes and drains: central line - R IJ HEENT: normocephalic, atraumatic, other - Pupils are 2 mm and sluggish reaction to light. Neck: non-tender Respiratory/Chest: Mech vent; lungs with rhonchi and wheezes bilat Cardiovascular/Chest: normal rate Abdomen: no mass, hypoactive bowel sounds Extremities: non-pitting Neurologic: unresponsiveness Assessment/Plan Assessment/Plan Assessment/Plan Status: unchanged Assessment/Plan: 75 y/o Male admitted to the Hospital with; # AMS # Acute encephalopathy # Acute hypoxemic respiratory failure # Respiratory acidosis. ABG monitoring. Intubation in the ER Pulmonary/ICU wtih Dr. Benavidez Renal consultation with Dr. Estrada. Add CT head wo contrast to rule out bleed vs other completing today. On route. EEG ordered today as no prior order found. Concern for anoxic brain injury. Seizure disorder # Pneumonia vs other ID consultation with Dr. Ricketts Zosyn and Vancomycin Follow up lactate and wbc, cultures Covid Ag is NEGATIVE, PCR NEG Leukocytosis # Thalassemia Recent BM biopsy which was negative per family report. [place] MR number is [id number] ( MR not linked with [facility] [place] database ) Supportive care Consider Hematology follow up as needed Continue maged per neurology=Dr Carranza # FTT - anorexia and weight loss Supportive care RD consult in the next 2 days for nutrition DNR DVT ppx GI ppx R IJ line Replace KCL IV abx=ceftriaxone Semaj Kay MD Oct 10, 2020 14:49
--- NOTE | 2020-10-10 15:32 | NUR ---
CASE MANAGEMENT:REVIEW 10/10/2020 SI: RESPIRATORY FAILURE~ INTUBATED. AC RENAL FAILURE VS: T 97.7 HR 66 RR 30 B/P 103/67 SATS 99% ON MECH VENT FIO2 30 LABS: WBC 30.6 K 3.4 BUN 36 CR 4.6 GLU 205 AST 50 ALP 125 IS: SOLU CORTEF IV Q8H PROTONIX IV Q12H KEPPRA IV Q12H CEFTRIAXONE IV Q24H KCL IV @ 100mL/HR REGLAN IV Q6H : ICU STATUS
--- NOTE | 2020-10-10 15:44 | NUR ---
NURSE NOTES: MD Whitehead at bedside to assess pt. MD made aware of pt's KCL 3.4. Received order from MD Whitehead to change scheduled KCL dose from 40mEq IV to 20mEq only. Will put in order. Pt's VSS, no signs of distress noted. Safety precautions maintained. Will continue to monitor.
--- NOTE | 2020-10-10 15:54 | Nephrology Progress Note ---
Assessment/Plan Problem List: (1) COURTNEY (acute kidney injury) (2) Cardiopulmonary arrest (3) Respiratory failure (4) Septic shock Assessment Acute renal failure Septic shock Acute respiratory failure CODE STATUS now DNR Plan October 10: Patient was dialyzed yesterday. Today's labs reviewed. Abnormal electrolytes addressed. Medication list reviewed. Discussed with RN. Continue per consultants. October 09: Patient due for dialysis today. IV fluids stopped. Patient DNR. Abnormal electrolyte and the dialysis bath adjusted accordingly. Continue per consultants. October 08: Patient was last dialyzed yesterday. Intubated. DNR. Meds and labs reviewed. Potassium supplement given. Continue to monitor renal parameters and dialysis as needed. Patient remains only coanuric. October 07: Patient was dialyzed yesterday. Labs reviewed. Platelets low. Oozing from the site of the dialysis catheter. On low-dose of pressors. Will dialyze today. Will change Pepcid to Protonix IV. Will give DDAVP 50 mcg once. Discussed with KIRBY Tarango. October 06: Status unchanged. Seen in ICU. Discussed with RN. Dialysis catheter and dialysis procedure has not yet been done. Radiology to arrange for catheter insertion today followed by dialysis. Labs reviewed. Medication list reviewed. October 05: Status quo. Labs reviewed. Serum creatinine creeping up. Patient hemodynamically more stable today than a few days ago. Called brother and he is agreeable for a trial of dialysis treatment with the hope to reverse the acute component of the renal failure. Nontunneled catheter placement ordered. Dialysis ordered. Continue to monitor renal parameters. Medication list reviewed. Discussed with RN and charge nurse. October 04: Status quo. Intubated on ventilator. Labs reviewed. Serum creatinine is plateauing. Trial of Zaroxolyn and 25% albumin infusion given. Abnormal electrolytes addressed. Continue as is. October 03: Continues to be on 6 mics of Levophed. Urine output 350 cc past 24 hours. No urine output since this morning. Labs reviewed. Discussed with KIRBY Diallo. Albumin bolus given. Zaroxolyn 1 dose ordered. Serum creatinine appears to be leveling off. Continue to monitor renal parameters. Patient DNR. October 02: Remains on low-dose pressors today almost anuric. Discussed with KIRBY Shook. Labs reviewed. Medication list reviewed. Trial of albumin and Lasix. Continue to monitor renal parameters. Patient DNR. FiO2 40% October 01: Patient clinically more stable. Discussed with KIRBY Tarango. Patient off pressors. ABG improved. Serum creatinine worse. Will start the patient on Bicitra and allopurinol through NG tube. Continue to monitor renal parameters. Per orders. Patient currently DNR. Previously: Pulmonary support Pressors Antibiotics Hydrocortisone Per orders Subjective ROS Limited/Unobtainable: Yes Objective Objective Last 24 Hour Vital Signs Date Time Temp Pulse Resp B/P (MAP) Pulse Ox O2 Delivery O2 Flow Rate FiO2 10/10/20 15:00 111/70 10/10/20 15:00 78 27 116/76 (89) 99 10/10/20 14:00 68 26 99/68 (78) 100 10/10/20 14:00 99/68 10/10/20 13:28 70 13 30 10/10/20 13:00 83 21 105/61 (76) 99 10/10/20 13:00 108/68 10/10/20 12:00 97.7 66 30 103/67 (79) 99 10/10/20 12:00 105/62 10/10/20 12:00 30 10/10/20 12:00 Mechanical Ventilator 10/10/20 11:21 61 10/10/20 11:00 115/74 10/10/20 11:00 76 21 115/74 (88) 99 10/10/20 10:54 71 19 30 10/10/20 10:52 84 20 30 10/10/20 10:48 89 16 30 10/10/20 10:00 103/64 10/10/20 10:00 70 24 105/78 (87) 100 10/10/20 09:00 88/62 10/10/20 09:00 67 22 109/64 (79) 100 10/10/20 08:43 70 13 30 10/10/20 08:20 94/60 10/10/20 08:15 70/54 10/10/20 08:00 Mechanical Ventilator 10/10/20 08:00 97.5 10/10/20 08:00 65 10/10/20 08:00 111/68 10/10/20 08:00 30 10/10/20 08:00 74 22 111/68 (82) 100 10/10/20 07:25 66 12 30 10/10/20 07:00 69 10 106/64 (78) 99 10/10/20 07:00 106/64 10/10/20 06:30 65 12 10/10/20 06:30 65 12 103/63 (76) 99 10/10/20 06:00 105/63 10/10/20 06:00 69 13 105/63 (77) 99 10/10/20 05:00 85 16 116/77 (90) 98 10/10/20 05:00 116/77 10/10/20 04:00 Mechanical Ventilator 10/10/20 04:00 86 10/10/20 04:00 98.0 83 16 115/77 (90) 98 10/10/20 04:00 115/77 10/10/20 04:00 30 10/10/20 03:17 78 13 30 10/10/20 03:00 77 14 117/76 (90) 98 10/10/20 03:00 117/76 10/10/20 02:30 83 14 123/77 (92) 98 10/10/20 02:00 123/77 10/10/20 02:00 79 15 122/76 (91) 98 10/10/20 01:00 112/68 10/10/20 01:00 66 12 112/68 (83) 98 10/10/20 00:45 72 13 118/65 (82) 97 10/10/20 00:30 82 13 127/74 (91) 97 10/10/20 00:15 87 16 124/74 (91) 97 10/10/20 00:15 124/74 10/10/20 00:00 Mechanical Ventilator 10/10/20 00:00 86 10/10/20 00:00 97.8 86 16 130/85 (100) 98 10/10/20 00:00 130/85 10/10/20 00:00 30 10/09/20 23:56 117/69 10/09/20 23:18 62 14 30 10/09/20 23:00 120/73 10/09/20 23:00 64 12 120/73 (89) 98 10/09/20 22:30 80 17 108/73 (85) 96 10/09/20 22:15 83 21 118/59 (78) 97 10/09/20 22:00 104 16 123/88 (100) 98 10/09/20 22:00 123/88 10/09/20 21:45 80 14 77/52 (60) 98 10/09/20 21:40 93 16 93/65 (74) 98 10/09/20 21:30 99 15 100/72 (81) 98 10/09/20 21:15 91 10 105/62 (76) 98 10/09/20 21:10 96 17 98/69 (79) 98 10/09/20 21:00 93 10 87/62 (70) 100 10/09/20 21:00 87/62 10/09/20 20:55 95 13 91/65 (74) 100 10/09/20 20:50 101 18 92/68 (76) 100 10/09/20 20:45 94 16 81/51 (61) 100 10/09/20 20:45 81/51 10/09/20 20:30 125 23 131/89 (103) 100 10/09/20 20:15 89 6 104/74 (84) 100 10/09/20 20:10 88 9 104/72 (83) 99 10/09/20 20:05 91 17 91/60 (70) 99 10/09/20 20:00 30 10/09/20 20:00 97.8 90 14 88/62 (71) 99 10/09/20 20:00 88/62 10/09/20 20:00 90 10/09/20 20:00 Mechanical Ventilator 10/09/20 19:23 68 14 30 10/09/20 19:00 96/70 10/09/20 19:00 69 13 96/70 (79) 100 10/09/20 19:00 76 15 96/70 (79) 100 10/09/20 18:00 120/77 10/09/20 18:00 100 15 124/76 (92) 100 10/09/20 17:24 87 17 30 10/09/20 17:00 92 15 121/86 (98) 100 10/09/20 17:00 121/86 10/09/20 16:00 97.7 95 20 121/81 (94) 99 10/09/20 16:00 119/83 10/09/20 16:00 97 10/09/20 16:00 30 10/09/20 16:00 Mechanical Ventilator Intake and Output 10/09/20 10/10/20 19:00 07:00 Intake Total 1632.50 ml 776.90 ml Output Total 10 ml 1020 ml Balance 1622.50 ml -243.10 ml Free Water 50 ml IV Total 1162.50 ml 296.90 ml Tube Feeding 420 ml 480 ml Output Urine Total 10 ml 20 ml Hemodialysis UF 1000 ml # Bowel Movements 1 2 Current Medications Medications (Trade) Dose Ordered Sig/Alfredo Route PRN Reason Start Time Stop Time Status Last Admin Dose Admin Acetaminophen (Tylenol) 650 mg EVERY 6 HOURS PRN NG Temp >100.5 09/30/20 02:30 10/30/20 02:29 Ceftriaxone Sodium 1 gm/ Dextrose 55 ml @ 110 mls/hr Q24H IVPB 10/07/20 13:30 10/14/20 13:29 10/10/20 12:36 Chlorhexidine Gluconate (Babita-Hex 2%) 1 applic DAILY@2000 TOPIC 09/30/20 20:00 12/29/20 19:59 10/09/20 19:33 Dextrose (Dextrose 50%) 25 ml Q30M PRN IV Hypoglycemia 09/30/20 02:30 12/29/20 02:29 Dextrose (Dextrose 50%) 50 ml Q30M PRN IV Hypoglycemia 09/30/20 02:30 12/29/20 02:29 Hydrocortisone (Solu-CORTEF) 100 mg EVERY 8 HOURS IV 09/30/20 14:00 12/29/20 13:59 10/10/20 13:41 Levetiracetam 100 ml @ 400 mls/hr Q12HR IVPB 10/02/20 09:00 12/31/20 08:59 10/10/20 09:12 Metoclopramide HCl (Reglan) 5 mg Q6H IVP 10/10/20 12:00 11/09/20 11:59 10/10/20 12:36 Norepinephrine Bitartrate 8 mg/ Dextrose 250 ml @ 0 mls/hr Q24H PRN IV DIRECTED 10/10/20 14:17 10/13/20 14:16 Pantoprazole (Protonix) 40 mg EVERY 12 HOURS IVP 10/07/20 21:00 11/06/20 20:59 10/10/20 09:12 Potassium Chloride 100 ml @ 50 mls/hr ONCE IVPB 10/10/20 16:00 10/10/20 19:00 Laboratory Tests 10/10/20 07:15: White Blood Count 30.6#*H, Red Blood Count 3.24L, Hemoglobin 9.7L, Hematocrit 32.0L, Mean Corpuscular Volume 99, Mean Corpuscular Hemoglobin 30.0, Mean Corpuscular Hemoglobin Concent 30.3L, Red Cell Distribution Width 20.3H, Platelet Count 45L, Mean Platelet Volume 11.0H, Neutrophils (%) (Auto) , Lymphocytes (%) (Auto) , Monocytes (%) (Auto) , Eosinophils (%) (Auto) , Basophils (%) (Auto) , Differential Total Cells Counted 100, Neutrophils % (Manual) 87H, Lymphocytes % (Manual) 6L, Monocytes % (Manual) 7, Eosinophils % (Manual) 0, Basophils % (Manual) 0, Band Neutrophils 0, Platelet Estimate DecreasedL, Platelet Morphology Normal, Hypochromasia 1+, Anisocytosis 2+, Sodium Level 143, Potassium Level 3.4L, Chloride Level 107, Carbon Dioxide Level 24, Anion Gap 12, Blood Urea Nitrogen 36H, Creatinine 4.6H, Estimat Glomerular Filtration Rate 15.2, Glucose Level 205H, Calcium Level 8.9, Phosphorus Level 3.3, Magnesium Level 1.9, Total Bilirubin 0.8, Aspartate Amino Transf (AST/SGOT) 50H, Alanine Aminotransferase (ALT/SGPT) 61, Alkaline Phosphatase 125H, C- Reactive Protein, Quantitative < 0.4, Pro-B-Type Natriuretic Peptide 8027H, Total Protein 5.6L, Albumin 2.4L, Globulin 3.2, Albumin/Globulin Ratio 0.8L Height (Feet): 6 Height (Inches): 8.00 Weight (Pounds): 165 General Appearance: no apparent distress EENT: other - Intubated on ventilator Cardiovascular: normal rate Respiratory/Chest: decreased breath sounds Abdomen: distended Angel Whitehead MD Oct 10, 2020 15:54
[2020-10-10 17:49] LABS: % IRON SATURATION 35 % (15-50); IRON 51 ug/dL (50-175); TOTAL IRON BINDING CAPACITY 147 ug/dL (250-450)
--- NOTE | 2020-10-10 17:50 | NUR ---
NURSE NOTES: Scheduled medication given per MD order, pt tolerated well. Pt's VS stable, afebrile, no signs of distress noted. No signs of bleeding noted from pt's central lines, dressing clean dry and intact. Oral care provided, bed bath given, linens and gown changed. Safety precautions maintained. Will continue to monitor.
--- NOTE | 2020-10-10 19:10 | NUR ---
NURSE HAND-OFF REPORT: Latest Vital Signs: Temperature 97.6 , Pulse 69 , B/P 94 /60 , Respiratory Rate 31 , O2 SAT 99 , Mechanical Ventilator, FiO2 30%. Vital Sign Comment: EKG Rhythm: Sinus Rhythm Rhythm change?: N MD Notified?: MD Response: Latest Carty Fall Score: 50 Fall Risk: High Risk Safety Measures: Call light Within Reach, Bed Alarm Zone 1, Side Rails Side Rails x3, Bed position Low and Locked. Fall Precautions: Yellow Socks Door Sign Patient Fall Education Report given to KIRBY Choe for continuity of care. Pt stable .
--- NOTE | 2020-10-10 19:27 | NUR ---
NURSE NOTES: received report from xin rosario rn pt obtunded open to touch does not follows command no movement all extremities orally intubated -vent o2 sat 99% no acute resp distress tolerating tubeting no residual iv infusing well no levo drip at 8mcg/min with bp 108/53 reposition and suction
[2020-10-10] MEDS: Dyna-Hex 2% Top Sol 2oz TOPIC SCH (20:23)
--- NOTE | 2020-10-10 22:00 | NUR ---
NURSE NOTES: had felipe lig bm clean AND PORCIAL SOTERO CHANGE REPOSITION AND SUCTION
[2020-10-11] VITALS (37 sets, daily range): BP systolic 93–127; BP diastolic 59–83
--- NOTE | 2020-10-11 | NUR ---
NURSE NOTES: UNABLE TITRATE< LEVO DRIP SBP<80 CONDITION UN CHANGE
--- NOTE | 2020-10-11 03:18 | NUR ---
Patient remains intubated with a size7.5 ett secured at the 24 cm ngoc, on current settings AC8/Vt500/+5/FiO2.30 maintaining SpO2>92% t/o shift. Lung sounds diminished/rhonchi suctioned scant amount of pale yellow secretions. Patient unable to extubate due to neuro status. Will continue to monitor.
--- NOTE | 2020-10-11 04:00 | NUR ---
NURSE NOTES: complete bed bath had 2x felipe lig bm rectal tube inserted and connected rectal bag semi leg bm broun color denise ij dressing change with sero sanginous drinage more left side reposition and suction
[2020-10-11 05:10] LABS: HEMOGLOBIN 9.3 G/DL (14.2-18.0); MEAN CORPUSCULAR VOLUME 99 FL (80-99); PLATELET COUNT 52 K/UL (150-450); RED BLOOD COUNT 3.04 M/UL (4.70-6.10); RED CELL DISTRIBUTION WIDTH 20.4 % (11.6-14.8)
[2020-10-11 05:20] LABS: WHITE BLOOD COUNT 35.7 K/UL (4.8-10.8)
[2020-10-11 05:22] LABS: INR 1.5 (0.9-1.1)
[2020-10-11 05:42] LABS: ALBUMIN 2.3 G/DL (3.4-5.0); ALBUMIN/GLOBULIN RATIO 0.7 (1.0-2.7); BILIRUBIN,TOTAL 0.7 MG/DL (0.2-1.0); CALCIUM 8.9 MG/DL (8.5-10.1); CREATININE 5.1 MG/DL (0.55-1.30)
[2020-10-11] MEDS: Metoclopramide 10mg/2ml Inj IVP SCH ×4 (05:42→23:33)
[2020-10-11] MEDS: Hydrocortisone 100mg Inj IV SCH ×3 (05:42→22:03)
[2020-10-11 06:02] LABS: PHOSPHORUS 3.7 MG/DL (2.5-4.9)
--- NOTE | 2020-10-11 06:09 | NUR ---
NURSE NOTES: pt obtunded hr 90 sr temp 97.7 tolerating tube feeding no residual reposition and suction
--- NOTE | 2020-10-11 06:37 | Hematology/Onc Progress Note ---
Assessment/Plan Assessment/Plan Lab Data: reviewed IMAGING: CT Head: No evidence of acute intracranial hemorrhage, mass effect or cortical edema. MRI recommended for more sensitive evaluation as clinically nadia cated. Atrophy and nonspecific periventricular hypoattenuation suggestive of chronic ischemic microvascular changes. Assessment And Rec's 1. Thrombocytopenia and p/w Anemia of Chronic Disease, in chart hx of anemia --> check anemia panel --> transfuse to keep HGB >7 --> cont to monitor HGB trend, stool ob --> prior imaging reviewed, showed strophic liver --> plt 52 2. Leukocytosis is likely related to infection --> ABx as per id --> wbc 36 --> smear is noted 3. Acute hypoxemic respiratory failure --> s/p intubation on vent 4. Anoxic Encephalopathy --> S/p recent CODE Blue and intubation --> CT head reviewed as above Covid Ag is NEGATIVE, PCR sent and pending. PUI status 5. FTT --> Supportive care pt is DNR Greatly appreciate consult. Subjective Cardiovascular: Denies: no symptoms, chest pain, edema, irregular heart rate, lightheadedness, palpitations, syncope, other Respiratory: Denies: no symptoms, cough, shortness of breath, SOB with exce rtion, SOB at rest, sputum, wheezing, other Gastrointestinal/Abdominal: Denies: no symptoms, abdomen distended, abdominal pain, black stools, tarry stools, blood in stool, constipated, diarrhea, difficulty swallowing, nausea, poor appetite, poor fluid intake, rectal bleeding, vomiting, other Genitourinary: Denies: no symptoms, burning, discharge, frequency, flank pain, hematuria, incontinence, pain, urgency, other Neurologic/Psychiatric: Denies: no symptoms, anxiety, depressed, emotional problems, headache, numbness, paresthesia, pre-existing deficit, seizure, tingling, tremors, weakness, other Endocrine: Denies: no symptoms, excessive sweating, flushing, intolerance to c old, intolerance to heat, increased hunger, increased thirst, increased urine, unexplained weight gain, unexplained weight loss, other Allergies: Coded Allergies: No Known Allergies (Unverified , 09/13/20) Subjective 10/11 icu, nv, is on vent, no bleeding, dw rn, labs reviewed, plt 52 Objective Objective Current Medications Medications (Trade) Dose Ordered Sig/Alfredo Route PRN Reason Start Time Stop Time Status Last Admin Dose Admin Acetaminophen (Tylenol) 650 mg EVERY 6 HOURS PRN NG Temp >100.5 09/30/20 02:30 10/30/20 02:29 Ceftriaxone Sodium 1 gm/ Dextrose 55 ml @ 110 mls/hr Q24H IVPB 10/07/20 13:30 10/14/20 13:29 10/10/20 12:36 Chlorhexidine Gluconate (Babita-Hex 2%) 1 applic DAILY@2000 TOPIC 09/30/20 20:00 12/29/20 19:59 10/10/20 20:23 Dextrose (Dextrose 50%) 25 ml Q30M PRN IV Hypoglycemia 09/30/20 02:30 12/29/20 02:29 Dextrose (Dextrose 50%) 50 ml Q30M PRN IV Hypoglycemia 09/30/20 02:30 12/29/20 02:29 Hydrocortisone (Solu-CORTEF) 100 mg EVERY 8 HOURS IV 09/30/20 14:00 12/29/20 13:59 10/11/20 05:42 Levetiracetam 100 ml @ 400 mls/hr Q12HR IVPB 10/02/20 09:00 12/31/20 08:59 10/10/20 20:24 Metoclopramide HCl (Reglan) 5 mg Q6H IVP 10/10/20 12:00 11/09/20 11:59 10/11/20 05:42 Norepinephrine Bitartrate 8 mg/ Dextrose 250 ml @ 0 mls/hr Q24H PRN IV DIRECTED 10/10/20 14:17 10/13/20 14:16 10/10/20 16:15 Pantoprazole (Protonix) 40 mg EVERY 12 HOURS IVP 10/07/20 21:00 11/06/20 20:59 10/10/20 20:23 Last 24 Hour Vital Signs Date Time Temp Pulse Resp B/P (MAP) Pulse Ox O2 Delivery O2 Flow Rate FiO2 10/11/20 06:00 87 24 106/72 (83) 96 10/11/20 06:00 110/56 10/11/20 05:00 88 23 106/70 (82) 96 10/11/20 05:00 113/64 10/11/20 04:00 30 10/11/20 04:00 104 3/8/21 04:00 97.4 96 26 119/79 (92) 100 10/11/20 04:00 114/73 10/11/20 04:00 Mechanical Ventilator 10/11/20 03:53 102 17 30 10/11/20 03:00 91 19 99/66 (77) 97 10/11/20 03:00 114/62 10/11/20 02:00 112/69 10/11/20 02:00 89 19 123/77 (92) 98 10/11/20 01:00 107/67 10/11/20 01:00 87 15 107/65 (79) 98 10/11/20 00:00 81 17 108/66 (80) 98 10/11/20 00:00 107/64 10/11/20 00:00 30 10/11/20 00:00 Mechanical Ventilator 10/10/20 23:00 69 17 104/66 (79) 98 10/10/20 23:00 104/66 10/10/20 22:20 89 15 30 10/10/20 22:00 88 16 118/72 (87) 98 10/10/20 22:00 104/66 10/10/20 21:00 83 18 108/70 (83) 99 10/10/20 21:00 111/66 10/10/20 20:00 30 10/10/20 20:00 81 10/10/20 20:00 Mechanical Ventilator 10/10/20 20:00 97.8 72 31 100/63 (75) 100 10/10/20 20:00 104/56 10/10/20 19:18 74 14 30 10/10/20 19:00 69 31 94/60 (71) 99 10/10/20 19:00 94/60 10/10/20 18:00 105/68 10/10/20 18:00 92 23 105/68 (80) 97 10/10/20 17:00 133/79 10/10/20 17:00 107 28 113/74 (87) 97 10/10/20 16:35 91 15 30 10/10/20 16:15 116/67 10/10/20 16:00 30 10/10/20 16:00 115/72 10/10/20 16:00 88 10/10/20 16:00 Mechanical Ventilator 10/10/20 16:00 97.6 88 22 116/67 (83) 98 10/10/20 15:18 74 12 30 10/10/20 15:00 111/70 10/10/20 15:00 78 27 116/76 (89) 99 10/10/20 14:00 68 26 99/68 (78) 100 10/10/20 14:00 99/68 10/10/20 13:28 70 13 30 10/10/20 13:00 83 21 105/61 (76) 99 10/10/20 13:00 108/68 10/10/20 12:00 97.7 66 30 103/67 (79) 99 10/10/20 12:00 105/62 10/10/20 12:00 30 10/10/20 12:00 Mechanical Ventilator 10/10/20 11:21 61 10/10/20 11:00 115/74 10/10/20 11:00 76 21 115/74 (88) 99 10/10/20 10:54 71 19 30 10/10/20 10:52 84 20 30 10/10/20 10:48 89 16 30 10/10/20 10:00 103/64 10/10/20 10:00 70 24 105/78 (87) 100 10/10/20 09:00 88/62 10/10/20 09:00 67 22 109/64 (79) 100 10/10/20 08:43 70 13 30 10/10/20 08:20 94/60 10/10/20 08:15 70/54 10/10/20 08:00 Mechanical Ventilator 10/10/20 08:00 97.5 10/10/20 08:00 65 10/10/20 08:00 111/68 10/10/20 08:00 30 10/10/20 08:00 74 22 111/68 (82) 100 10/10/20 07:25 66 12 30 10/10/20 07:00 69 10 106/64 (78) 99 10/10/20 07:00 106/64 10/10/20 06:30 65 12 10/10/20 06:30 65 12 103/63 (76) 99 10/10/20 06:00 105/63 10/10/20 06:00 69 13 105/63 (77) 99 10/10/20 05:00 85 16 116/77 (90) 98 10/10/20 05:00 116/77 10/10/20 04:00 Mechanical Ventilator 10/10/20 04:00 86 10/10/20 04:00 98.0 83 16 115/77 (90) 98 10/10/20 04:00 115/77 10/10/20 04:00 30 10/10/20 03:17 78 13 30 10/10/20 03:00 77 14 117/76 (90) 98 10/10/20 03:00 117/76 10/10/20 02:30 83 14 123/77 (92) 98 10/10/20 02:00 123/77 10/10/20 02:00 79 15 122/76 (91) 98 10/10/20 01:00 112/68 10/10/20 01:00 66 12 112/68 (83) 98 10/10/20 00:45 72 13 118/65 (82) 97 10/10/20 00:30 82 13 127/74 (91) 97 10/10/20 00:15 87 16 124/74 (91) 97 10/10/20 00:15 124/74 10/10/20 00:00 Mechanical Ventilator 10/10/20 00:00 86 10/10/20 00:00 97.8 86 16 130/85 (100) 98 10/10/20 00:00 130/85 10/10/20 00:00 30 10/09/20 23:56 117/69 10/09/20 23:18 62 14 30 10/09/20 23:00 120/73 10/09/20 23:00 64 12 120/73 (89) 98 10/09/20 22:30 80 17 108/73 (85) 96 10/09/20 22:15 83 21 118/59 (78) 97 10/09/20 22:00 104 16 123/88 (100) 98 10/09/20 22:00 123/88 10/09/20 21:45 80 14 77/52 (60) 98 10/09/20 21:40 93 16 93/65 (74) 98 10/09/20 21:30 99 15 100/72 (81) 98 10/09/20 21:15 91 10 105/62 (76) 98 10/09/20 21:10 96 17 98/69 (79) 98 10/09/20 21:00 93 10 87/62 (70) 100 10/09/20 21:00 87/62 10/09/20 20:55 95 13 91/65 (74) 100 10/09/20 20:50 101 18 92/68 (76) 100 10/09/20 20:45 94 16 81/51 (61) 100 10/09/20 20:45 81/51 10/09/20 20:30 125 23 131/89 (103) 100 10/09/20 20:15 89 6 104/74 (84) 100 10/09/20 20:10 88 9 104/72 (83) 99 10/09/20 20:05 91 17 91/60 (70) 99 10/09/20 20:00 30 10/09/20 20:00 97.8 90 14 88/62 (71) 99 10/09/20 20:00 88/62 10/09/20 20:00 90 10/09/20 20:00 Mechanical Ventilator 10/09/20 19:23 68 14 30 10/09/20 19:00 96/70 10/09/20 19:00 69 13 96/70 (79) 100 10/09/20 19:00 76 15 96/70 (79) 100 10/09/20 18:00 120/77 10/09/20 18:00 100 15 124/76 (92) 100 10/09/20 17:24 87 17 30 10/09/20 17:00 92 15 121/86 (98) 100 10/09/20 17:00 121/86 10/09/20 16:00 97.7 95 20 121/81 (94) 99 10/09/20 16:00 119/83 10/09/20 16:00 97 10/09/20 16:00 30 10/09/20 16:00 Mechanical Ventilator 10/09/20 15:17 91 21 30 10/09/20 15:00 119/52 10/09/20 15:00 88 15 115/84 (94) 99 10/09/20 14:00 96 15 118/87 (97) 100 10/09/20 14:00 89 18 112/84 (93) 100 10/09/20 14:00 112/84 10/09/20 13:00 112/87 10/09/20 13:00 95 18 116/87 (97) 100 10/09/20 12:49 104 22 30 10/09/20 12:00 Mechanical Ventilator 10/09/20 12:00 98.2 106 21 123/86 (98) 99 10/09/20 12:00 117/83 10/09/20 12:00 30 10/09/20 11:23 87 10/09/20 11:15 97 21 30 10/09/20 11:00 105/72 10/09/20 11:00 71 18 105/72 (83) 100 10/09/20 10:00 108/73 10/09/20 10:00 81 16 113/89 (97) 100 10/09/20 09:40 99 20 30 30 10/09/20 09:40 100 10/09/20 09:00 113/85 10/09/20 09:00 88 16 90/65 (73) 100 10/09/20 08:00 97.6 90 16 157/114 (128) 100 10/09/20 08:00 82 10/09/20 08:00 30 10/09/20 08:00 119/82 10/09/20 08:00 Mechanical Ventilator 10/09/20 07:25 80 17 30 10/09/20 07:00 115/75 10/09/20 07:00 82 16 108/87 (94) 99 Intake and Output 10/10/20 10/11/20 19:00 07:00 Intake Total 809.75 ml 785 ml Output Total 25 ml 20 ml Balance 784.75 ml 765 ml Free Water 40 ml 80 ml IV Total 489.75 ml 265 ml Tube Feeding 280 ml 440 ml Output Urine Total 25 ml 20 ml # Bowel Movements 4 5 Labs Test 10/08/20 08:25 10/09/20 06:10 10/09/20 11:25 10/10/20 07:15 White Blood Count 12.6 K/UL (4.8-10.8) 18.1 K/UL (4.8-10.8) 30.6 K/UL (4.8-10.8) Red Blood Count 2.88 M/UL (4.70-6.10) 2.90 M/UL (4.70-6.10) 3.24 M/UL (4.70-6.10) Hemoglobin 9.0 G/DL (14.2-18.0) 9.1 G/DL (14.2-18.0) 9.7 G/DL (14.2-18.0) Hematocrit 26.7 % (42.0-52.0) 27.8 % (42.0-52.0) 32.0 % (42.0-52.0) Mean Corpuscular Volume 93 FL (80-99) 96 FL (80-99) 99 FL (80-99) Mean Corpuscular Hemoglobin 31.2 PG (27.0-31.0) 31.3 PG (27.0-31.0) 30.0 PG (27.0-31.0) Mean Corpuscular Hemoglobin Concent 33.6 G/DL (32.0-36.0) 32.7 G/DL (32.0-36.0) 30.3 G/DL (32.0-36.0) Red Cell Distribution Width 19.0 % (11.6-14.8) 19.2 % (11.6-14.8) 20.3 % (11.6-14.8) Platelet Count 30 K/UL (150-450) 36 K/UL (150-450) 45 K/UL (150-450) Mean Platelet Volume 11.0 FL (6.5-10.1) 11.0 FL (6.5-10.1) 11.0 FL (6.5-10.1) Neutrophils (%) (Auto) % (45.0-75.0) % (45.0-75.0) % (45.0-75.0) Lymphocytes (%) (Auto) % (20.0-45.0) % (20.0-45.0) % (20.0-45.0) Monocytes (%) (Auto) % (1.0-10.0) % (1.0-10.0) % (1.0-10.0) Eosinophils (%) (Auto) % (0.0-3.0) % (0.0-3.0) % (0.0-3.0) Basophils (%) (Auto) % (0.0-2.0) % (0.0-2.0) % (0.0-2.0) Differential Total Cells Counted 100 100 100 Neutrophils % (Manual) 93 % (45-75) 90 % (45-75) 87 % (45-75) Lymphocytes % (Manual) 5 % (20-45) 5 % (20-45) 6 % (20-45) Monocytes % (Manual) 2 % (1-10) 5 % (1-10) 7 % (1-10) Eosinophils % (Manual) 0 % (0-3) 0 % (0-3) 0 % (0-3) Basophils % (Manual) 0 % (0-2) 0 % (0-2) 0 % (0-2) Band Neutrophils 0 % (0-8) 0 % (0-8) 0 % (0-8) Platelet Estimate Decreased Decreased Decreased Platelet Morphology Normal Normal Normal Hypochromasia 1+ 1+ 1+ Anisocytosis 2+ 2+ 2+ Sodium Level 142 MMOL/L (136-145) 144 MMOL/L (136-145) 143 MMOL/L (136-145) Potassium Level 2.8 MMOL/L (3.5-5.1) 2.9 MMOL/L (3.5-5.1) 3.4 MMOL/L (3.5-5.1) Chloride Level 107 MMOL/L (98-107) 108 MMOL/L (98-107) 107 MMOL/L (98-107) Carbon Dioxide Level 26 MMOL/L (21-32) 24 MMOL/L (21-32) 24 MMOL/L (21-32) Anion Gap 9 mmol/L (5-15) 13 mmol/L (5-15) 12 mmol/L (5-15) Blood Urea Nitrogen 40 mg/dL (7-18) 43 mg/dL (7-18) 36 mg/dL (7-18) Creatinine 4.8 MG/DL (0.55-1.30) 5.3 MG/DL (0.55-1.30) 4.6 MG/DL (0.55-1.30) Estimat Glomerular Filtration Rate 14.4 mL/min (>60) 12.8 mL/min (>60) 15.2 mL/min (>60) Glucose Level 193 MG/DL (74-106) 222 MG/DL (74-106) 205 MG/DL (74-106) Calcium Level 8.6 MG/DL (8.5-10.1) 8.8 MG/DL (8.5-10.1) 8.9 MG/DL (8.5-10.1) Phosphorus Level 3.2 MG/DL (2.5-4.9) 3.6 MG/DL (2.5-4.9) 3.3 MG/DL (2.5-4.9) Total Bilirubin 0.9 MG/DL (0.2-1.0) 0.8 MG/DL (0.2-1.0) 0.8 MG/DL (0.2-1.0) Aspartate Amino Transf (AST/SGOT) 50 U/L (15-37) 50 U/L (15-37) 50 U/L (15-37) Alanine Aminotransferase (ALT/SGPT) 52 U/L (12-78) 61 U/L (12-78) 61 U/L (12-78) Alkaline Phosphatase 60 U/L (46-116) 73 U/L (46-116) 125 U/L (46-116) Pro-B-Type Natriuretic Peptide 4578 pg/mL (0-125) 5862 pg/mL (0-125) 8027 pg/mL (0-125) Total Protein 4.9 G/DL (6.4-8.2) 5.2 G/DL (6.4-8.2) 5.6 G/DL (6.4-8.2) Albumin 2.2 G/DL (3.4-5.0) 2.3 G/DL (3.4-5.0) 2.4 G/DL (3.4-5.0) Globulin 2.7 g/dL 2.9 g/dL 3.2 g/dL Albumin/Globulin Ratio 0.8 (1.0-2.7) 0.8 (1.0-2.7) 0.8 (1.0-2.7) Schistocytes Occasional Uric Acid 4.8 MG/DL (2.6-7.2) Magnesium Level 1.9 MG/DL (1.8-2.4) 1.9 MG/DL (1.8-2.4) C-Reactive Protein, Quantitative < 0.4 mg/dL (0.00-0.90) < 0.4 mg/dL (0.00-0.90) Arterial Blood pH 7.380 (7.350-7.450) Arterial Blood Partial Pressure CO2 35.6 mmHg (35.0-45.0) Arterial Blood Partial Pressure O2 298.0 mmHg (75.0-100.0) Arterial Blood HCO3 20.6 mmol/L (22.0-26.0) Arterial Blood Oxygen Saturation 98.9 % (95-100) Arterial Blood Base Excess -4.0 (-2-2) Onesimo Test Positive Test 10/10/20 17:10 10/11/20 04:54 Iron Level 51 ug/dL (50-175) Total Iron Binding Capacity 147 ug/dL (250-450) Percent Iron Saturation 35 % (15-50) Unsaturated Iron Binding 96 ug/dL (112-346) White Blood Count 35.7 K/UL (4.8-10.8) Red Blood Count 3.04 M/UL (4.70-6.10) Hemoglobin 9.3 G/DL (14.2-18.0) Hematocrit 30.0 % (42.0-52.0) Mean Corpuscular Volume 99 FL (80-99) Mean Corpuscular Hemoglobin 30.5 PG (27.0-31.0) Mean Corpuscular Hemoglobin Concent 31.0 G/DL (32.0-36.0) Red Cell Distribution Width 20.4 % (11.6-14.8) Platelet Count 52 K/UL (150-450) Mean Platelet Volume 10.7 FL (6.5-10.1) Neutrophils (%) (Auto) % (45.0-75.0) Lymphocytes (%) (Auto) % (20.0-45.0) Monocytes (%) (Auto) % (1.0-10.0) Eosinophils (%) (Auto) % (0.0-3.0) Basophils (%) (Auto) % (0.0-2.0) Prothrombin Time 15.7 SEC (9.30-11.50) Prothromb Time International Ratio 1.5 (0.9-1.1) Sodium Level 141 MMOL/L (136-145) Potassium Level 3.0 MMOL/L (3.5-5.1) Chloride Level 105 MMOL/L (98-107) Carbon Dioxide Level 24 MMOL/L (21-32) Anion Gap 13 mmol/L (5-15) Blood Urea Nitrogen 43 mg/dL (7-18) Creatinine 5.1 MG/DL (0.55-1.30) Estimat Glomerular Filtration Rate 13.5 mL/min (>60) Glucose Level 234 MG/DL (74-106) Calcium Level 8.9 MG/DL (8.5-10.1) Phosphorus Level 3.7 MG/DL (2.5-4.9) Magnesium Level 2.0 MG/DL (1.8-2.4) Total Bilirubin 0.7 MG/DL (0.2-1.0) Aspartate Amino Transf (AST/SGOT) 40 U/L (15-37) Alanine Aminotransferase (ALT/SGPT) 63 U/L (12-78) Alkaline Phosphatase 155 U/L (46-116) Ammonia 19 umol/L (11-32) C-Reactive Protein, Quantitative < 0.4 mg/dL (0.00-0.90) Pro-B-Type Natriuretic Peptide 25757 pg/mL (0-125) Total Protein 5.4 G/DL (6.4-8.2) Albumin 2.3 G/DL (3.4-5.0) Globulin 3.1 g/dL Albumin/Globulin Ratio 0.7 (1.0-2.7) Height (Feet): 6 Height (Inches): 8.00 Weight (Pounds): 165 Objective Physical Exam: pt is camotose. Sedated HEENT: NC/AT. EOMI. Cardiovascular: Irregularly irregular rhythm. Resp: intubated on vent Abdomen: Abdomen is soft, nondistended. Nontender Skin: Intact. MSK: obtunded Neuro: limited exam Bert Ponce MD Oct 11, 2020 06:37
--- NOTE | 2020-10-11 07:12 | NUR ---
NURSE HAND-OFF REPORT: Latest Vital Signs: Temperature 97.4 , Pulse 80 , B/P 106 /62 , Respiratory Rate 29 , O2 SAT 100 , Mechanical Ventilator, O2 Flow Rate 100.0 . Vital Sign Comment: EKG Rhythm: Sinus Rhythm Rhythm change?: N MD Notified?: N - MD Response: Latest Carty Fall Score: 50 Fall Risk: High Risk Safety Measures: Call light Within Reach, Bed Alarm Zone 1, Side Rails Side Rails x3, Bed position Low and Locked. Fall Precautions: Yellow Socks Door Sign Patient Fall Education Report given to greta clement using sbar abdomen ultra sound done
--- NOTE | 2020-10-11 07:30 | NUR ---
NURSE NOTES: Received report from KIRBY Choe. Patient is obtunded, opens eyes to pain, not tracking. ETT 7.5/25cm at lip line with vent setting ac 16, tv 500, fio2 30%, PEEP 5. Rt nare NGT intact; running tube feeds- Nepro @ 40mL/hr. Right IJ TLC intact and running Levophed 8mcg/min. Lt IJ dialysis catheter with pigtail noted, dressing clean, dry, and intact. Generalized edema noted. Pt on a P200 mattress. Bed locked and in lowest position, with call light within reach. Bed side rials padded for seizure precautions. Will continue plan of care. computer field technician at bedside performing abd ultrasound.
[2020-10-11] MEDS: Pantoprazole Inj IVP SCH ×2 (08:24→20:48)
[2020-10-11] MEDS: levETIRAcetam 500mg/NS100ml 100 ML IVPB SCH ×2 (08:25→20:49)
--- NOTE | 2020-10-11 08:58 | Infectious Diseases Prog Note ---
Assessment/Plan 75 yo male with PMHx of failure to thrive, HTN, thalassemia, pancytopenia, HLD, Depression who was sent to the ED from his assisted for AMS. Septic Shock PNA Acute hypoxic resp failure sp VDRF -10/04 sp Cx - K. Pnaumo -10/01 sp cx S. aureus (MSSA), K. pna (r amp; otherwise S) -09/30 COVID PCr neg -09/30 CXR: Bibasilar atelectasis versus infiltrates CXR 09/29/20 - Left basilar atelectasis. No acute process otherwise. Evidence of old granulomatous disease rapid covid ag neg , PCR : neg S. epi bacteremia- contaminant vs real -10/03 Bcx NGTD -09/29 BCx 09/07 sets S. epi Leukocytosis; increased ( on steroids) No fever -09/30 ucx neg AMS -CT head: New NG tube and mid to distal esophagus. Recommend advancement. Bibasilar atelectasis versus infiltrates Lactic acidosis Failure to thrive HTN Thalassemia Pancytopenia HLD Depression Adenomatous colonic polyps PLAN Start Meropenem #1 and Vancomycin #1 f/u cultures Repeat CXR - 10/10/20 SP Ceftriaxone # 5 for K. pneumo PNA - 10/06/20 SP Zosyn #7/7 - 10/03/20 SP Vancomycin #3 - Monitor CBC and Temps - BCx (periheral and line) - 2d echo Thank you for this consult. [facility] will continue to follow Mr. Vargas while he in hospitalized. Subjective Allergies: Coded Allergies: No Known Allergies (Unverified , 09/13/20) Afebrile WBCs increased to 35 On Vent 30% O2 On Levophed Objective Last 24 Hour Vital Signs Date Time Temp Pulse Resp B/P (MAP) Pulse Ox O2 Delivery O2 Flow Rate FiO2 10/11/20 08:00 30 10/11/20 07:16 88 13 30 10/11/20 07:00 80 29 106/62 (77) 100 10/11/20 07:00 106/64 10/11/20 06:30 79 36 10/11/20 06:00 87 24 106/72 (83) 96 10/11/20 06:00 110/56 10/11/20 05:00 88 23 106/70 (82) 96 10/11/20 05:00 113/64 10/11/20 04:00 30 10/11/20 04:00 104 10/11/20 04:00 97.4 96 26 119/79 (92) 100 10/11/20 04:00 114/73 10/11/20 04:00 Mechanical Ventilator 10/11/20 03:53 102 17 30 10/11/20 03:00 91 19 99/66 (77) 97 10/11/20 03:00 114/62 10/11/20 02:00 112/69 10/11/20 02:00 89 19 123/77 (92) 98 10/11/20 01:00 107/67 10/11/20 01:00 87 15 107/65 (79) 98 10/11/20 00:00 81 17 108/66 (80) 98 10/11/20 00:00 107/64 10/11/20 00:00 30 10/11/20 00:00 Mechanical Ventilator 10/10/20 23:00 69 17 104/66 (79) 98 10/10/20 23:00 104/66 10/10/20 22:20 89 15 30 10/10/20 22:00 88 16 118/72 (87) 98 10/10/20 22:00 104/66 10/10/20 21:00 83 18 108/70 (83) 99 10/10/20 21:00 111/66 10/10/20 20:00 30 10/10/20 20:00 81 10/10/20 20:00 Mechanical Ventilator 10/10/20 20:00 97.8 72 31 100/63 (75) 100 10/10/20 20:00 104/56 10/10/20 19:18 74 14 30 10/10/20 19:00 69 31 94/60 (71) 99 10/10/20 19:00 94/60 10/10/20 18:00 105/68 10/10/20 18:00 92 23 105/68 (80) 97 10/10/20 17:00 133/79 10/10/20 17:00 107 28 113/74 (87) 97 10/10/20 16:35 91 15 30 10/10/20 16:15 116/67 10/10/20 16:00 30 10/10/20 16:00 115/72 10/10/20 16:00 88 10/10/20 16:00 Mechanical Ventilator 10/10/20 16:00 97.6 88 22 116/67 (83) 98 10/10/20 15:18 74 12 30 10/10/20 15:00 111/70 10/10/20 15:00 78 27 116/76 (89) 99 10/10/20 14:00 68 26 99/68 (78) 100 10/10/20 14:00 99/68 10/10/20 13:28 70 13 30 10/10/20 13:00 83 21 105/61 (76) 99 10/10/20 13:00 108/68 10/10/20 12:00 97.7 66 30 103/67 (79) 99 10/10/20 12:00 105/62 10/10/20 12:00 30 10/10/20 12:00 Mechanical Ventilator 10/10/20 11:21 61 10/10/20 11:00 115/74 10/10/20 11:00 76 21 115/74 (88) 99 10/10/20 10:54 71 19 30 10/10/20 10:52 84 20 30 10/10/20 10:48 89 16 30 10/10/20 10:00 103/64 10/10/20 10:00 70 24 105/78 (87) 100 10/10/20 09:00 88/62 10/10/20 09:00 67 22 109/64 (79) 100 Height (Feet): 6 Height (Inches): 8.00 Weight (Pounds): 165 Gen: Intubated on Vent 30% O2, Not following HEENT: NCAT, MMM, No scleral icterus Pulm: RRR No accessory muscle use Abd: Soft, ND, + BS SKIN: Exposed skin normal in color no rash noted Microbiology Date/Time Source Procedure Growth Status 10/09/20 17:30 Urine,Clean Catch Urine Culture - Preliminary Yeast Species Resulted 10/09/20 17:30 Sputum Expectorated Gram Stain - Final Resulted 10/09/20 17:30 Sputum Culture - Preliminary Gram Negative Bacillus 1 YEAST Resulted Laboratory Tests Test 10/10/20 17:10 10/11/20 04:54 Iron Level 51 ug/dL (50-175) Total Iron Binding Capacity 147 ug/dL (250-450) L Percent Iron Saturation 35 % (15-50) Unsaturated Iron Binding 96 ug/dL (112-346) L White Blood Count 35.7 K/UL (4.8-10.8) *H Red Blood Count 3.04 M/UL (4.70-6.10) L Hemoglobin 9.3 G/DL (14.2-18.0) L Hematocrit 30.0 % (42.0-52.0) L Mean Corpuscular Volume 99 FL (80-99) Mean Corpuscular Hemoglobin 30.5 PG (27.0-31.0) Mean Corpuscular Hemoglobin Concent 31.0 G/DL (32.0-36.0) L Red Cell Distribution Width 20.4 % (11.6-14.8) H Platelet Count 52 K/UL (150-450) L Mean Platelet Volume 10.7 FL (6.5-10.1) H Neutrophils (%) (Auto) % (45.0-75.0) Lymphocytes (%) (Auto) % (20.0-45.0) Monocytes (%) (Auto) % (1.0-10.0) Eosinophils (%) (Auto) % (0.0-3.0) Basophils (%) (Auto) % (0.0-2.0) Differential Total Cells Counted 100 Neutrophils % (Manual) 95 % (45-75) H Lymphocytes % (Manual) 2 % (20-45) L Monocytes % (Manual) 3 % (1-10) Eosinophils % (Manual) 0 % (0-3) Basophils % (Manual) 0 % (0-2) Band Neutrophils 0 % (0-8) Platelet Estimate Decreased L Platelet Morphology Normal Hypochromasia 1+ Anisocytosis 1+ Macrocytosis 1+ Schistocytes 1+ Prothrombin Time 15.7 SEC (9.30-11.50) H Prothromb Time International Ratio 1.5 (0.9-1.1) H Sodium Level 141 MMOL/L (136-145) Potassium Level 3.0 MMOL/L (3.5-5.1) L Chloride Level 105 MMOL/L (98-107) Carbon Dioxide Level 24 MMOL/L (21-32) Anion Gap 13 mmol/L (5-15) Blood Urea Nitrogen 43 mg/dL (7-18) H Creatinine 5.1 MG/DL (0.55-1.30) H Estimat Glomerular Filtration Rate 13.5 mL/min (>60) Glucose Level 234 MG/DL (74-106) H Calcium Level 8.9 MG/DL (8.5-10.1) Phosphorus Level 3.7 MG/DL (2.5-4.9) Magnesium Level 2.0 MG/DL (1.8-2.4) Total Bilirubin 0.7 MG/DL (0.2-1.0) Aspartate Amino Transf (AST/SGOT) 40 U/L (15-37) H Alanine Aminotransferase (ALT/SGPT) 63 U/L (12-78) Alkaline Phosphatase 155 U/L (46-116) H Ammonia 19 umol/L (11-32) C-Reactive Protein, Quantitative < 0.4 mg/dL (0.00-0.90) Pro-B-Type Natriuretic Peptide 49937 pg/mL (0-125) H Total Protein 5.4 G/DL (6.4-8.2) L Albumin 2.3 G/DL (3.4-5.0) L Globulin 3.1 g/dL Albumin/Globulin Ratio 0.7 (1.0-2.7) L Hepatitis A IgM Antibody Pending Hepatitis B Surface Antigen Pending Hepatitis B Core IgM Antibody Pending Hepatitis C Antibody Pending HIV (1&2) Antibody Rapid Pending Current Medications Medications (Trade) Dose Ordered Sig/Alfredo Route PRN Reason Start Time Stop Time Status Last Admin Dose Admin Acetaminophen (Tylenol) 650 mg EVERY 6 HOURS PRN NG Temp >100.5 09/30/20 02:30 10/30/20 02:29 Ceftriaxone Sodium 1 gm/ Dextrose 55 ml @ 110 mls/hr Q24H IVPB 10/07/20 13:30 10/14/20 13:29 10/10/20 12:36 Chlorhexidine Gluconate (Babita-Hex 2%) 1 applic DAILY@2000 TOPIC 09/30/20 20:00 12/29/20 19:59 10/10/20 20:23 Dextrose (Dextrose 50%) 25 ml Q30M PRN IV Hypoglycemia 09/30/20 02:30 12/29/20 02:29 Dextrose (Dextrose 50%) 50 ml Q30M PRN IV Hypoglycemia 09/30/20 02:30 12/29/20 02:29 Hydrocortisone (Solu-CORTEF) 100 mg EVERY 8 HOURS IV 09/30/20 14:00 12/29/20 13:59 10/11/20 05:42 Levetiracetam 100 ml @ 400 mls/hr Q12HR IVPB 10/02/20 09:00 12/31/20 08:59 10/11/20 08:25 Metoclopramide HCl (Reglan) 5 mg Q6H IVP 10/10/20 12:00 11/09/20 11:59 10/11/20 05:42 Norepinephrine Bitartrate 8 mg/ Dextrose 250 ml @ 0 mls/hr Q24H PRN IV DIRECTED 10/10/20 14:17 10/13/20 14:16 10/10/20 16:15 Pantoprazole (Protonix) 40 mg EVERY 12 HOURS IVP 10/07/20 21:00 11/06/20 20:59 10/11/20 08:24 Yoel Ricketts MD Oct 11, 2020 08:58
--- NOTE | 2020-10-11 09:15 | NUR ---
NURSE NOTES: Called [facility] @ [phone] to schedule dialysis for tomorrow, as ordered.
--- NOTE | 2020-10-11 10:06 | Nephrology Progress Note ---
Assessment/Plan Problem List: (1) COURTNEY (acute kidney injury) (2) Cardiopulmonary arrest (3) Respiratory failure (4) Septic shock Assessment Acute renal failure Septic shock Acute respiratory failure CODE STATUS now DNR Plan October 11: Labs reviewed. Discussed with KIRBY Tarango. Leukocytosis persists. Low potassium addressed. Will order dialysis tomorrow. Continue per consultants. October 10: Patient was dialyzed yesterday. Today's labs reviewed. Abnormal electrolytes addressed. Medication list reviewed. Discussed with RN. Continue per consultants. October 09: Patient due for dialysis today. IV fluids stopped. Patient DNR. Abnormal electrolyte and the dialysis bath adjusted accordingly. Continue per consultants. October 08: Patient was last dialyzed yesterday. Intubated. DNR. Meds and labs reviewed. Potassium supplement given. Continue to monitor renal parameters and dialysis as needed. Patient remains only coanuric. October 07: Patient was dialyzed yesterday. Labs reviewed. Platelets low. Oozing from the site of the dialysis catheter. On low-dose of pressors. Will dialyze today. Will change Pepcid to Protonix IV. Will give DDAVP 50 mcg once. Discussed with KIRBY Tarango. October 06: Status unchanged. Seen in ICU. Discussed with RN. Dialysis catheter and dialysis procedure has not yet been done. Radiology to arrange for catheter insertion today followed by dialysis. Labs reviewed. Medication list reviewed. October 05: Status quo. Labs reviewed. Serum creatinine creeping up. Patient hemodynamically more stable today than a few days ago. Called brother and he is agreeable for a trial of dialysis treatment with the hope to reverse the acute component of the renal failure. Nontunneled catheter placement ordered. Dialysis ordered. Continue to monitor renal parameters. Medication list reviewed. Discussed with RN and charge nurse. October 04: Status quo. Intubated on ventilator. Labs reviewed. Serum creatinine is plateauing. Trial of Zaroxolyn and 25% albumin infusion given. Abnormal electrolytes addressed. Continue as is. October 03: Continues to be on 6 mics of Levophed. Urine output 350 cc past 24 hours. No urine output since this morning. Labs reviewed. Discussed with KIRBY Diallo. Albumin bolus given. Zaroxolyn 1 dose ordered. Serum creatinine appears to be leveling off. Continue to monitor renal parameters. Patient DNR. October 02: Remains on low-dose pressors today almost anuric. Discussed with KIRBY Shook. Labs reviewed. Medication list reviewed. Trial of albumin and Lasix. Continue to monitor renal parameters. Patient DNR. FiO2 40% October 01: Patient clinically more stable. Discussed with KIRBY Tarango. Patient off pressors. ABG improved. Serum creatinine worse. Will start the patient on Bicitra and allopurinol through NG tube. Continue to monitor renal parameters. Per orders. Patient currently DNR. Previously: Pulmonary support Pressors Antibiotics Hydrocortisone Per orders Subjective ROS Limited/Unobtainable: Yes Objective Objective Last 24 Hour Vital Signs Date Time Temp Pulse Resp B/P (MAP) Pulse Ox O2 Delivery O2 Flow Rate FiO2 10/11/20 10:00 105/63 10/11/20 08:00 30 10/11/20 07:16 88 13 30 10/11/20 07:00 80 29 106/62 (77) 100 10/11/20 07:00 106/64 10/11/20 06:30 79 36 10/11/20 06:00 87 24 106/72 (83) 96 10/11/20 06:00 110/56 10/11/20 05:00 88 23 106/70 (82) 96 10/11/20 05:00 113/64 10/11/20 04:00 30 10/11/20 04:00 104 10/11/20 04:00 97.4 96 26 119/79 (92) 100 10/11/20 04:00 114/73 10/11/20 04:00 Mechanical Ventilator 10/11/20 03:53 102 17 30 10/11/20 03:00 91 19 99/66 (77) 97 10/11/20 03:00 114/62 10/11/20 02:00 112/69 10/11/20 02:00 89 19 123/77 (92) 98 10/11/20 01:00 107/67 10/11/20 01:00 87 15 107/65 (79) 98 10/11/20 00:00 81 17 108/66 (80) 98 10/11/20 00:00 107/64 10/11/20 00:00 30 10/11/20 00:00 Mechanical Ventilator 10/10/20 23:00 69 17 104/66 (79) 98 10/10/20 23:00 104/66 10/10/20 22:20 89 15 30 10/10/20 22:00 88 16 118/72 (87) 98 10/10/20 22:00 104/66 10/10/20 21:00 83 18 108/70 (83) 99 10/10/20 21:00 111/66 10/10/20 20:00 30 10/10/20 20:00 81 10/10/20 20:00 Mechanical Ventilator 10/10/20 20:00 97.8 72 31 100/63 (75) 100 10/10/20 20:00 104/56 10/10/20 19:18 74 14 30 10/10/20 19:00 69 31 94/60 (71) 99 10/10/20 19:00 94/60 10/10/20 18:00 105/68 10/10/20 18:00 92 23 105/68 (80) 97 10/10/20 17:00 133/79 10/10/20 17:00 107 28 113/74 (87) 97 10/10/20 16:35 91 15 30 10/10/20 16:15 116/67 10/10/20 16:00 30 10/10/20 16:00 115/72 10/10/20 16:00 88 10/10/20 16:00 Mechanical Ventilator 10/10/20 16:00 97.6 88 22 116/67 (83) 98 10/10/20 15:18 74 12 30 10/10/20 15:00 111/70 10/10/20 15:00 78 27 116/76 (89) 99 10/10/20 14:00 68 26 99/68 (78) 100 10/10/20 14:00 99/68 10/10/20 13:28 70 13 30 10/10/20 13:00 83 21 105/61 (76) 99 10/10/20 13:00 108/68 10/10/20 12:00 97.7 66 30 103/67 (79) 99 10/10/20 12:00 105/62 10/10/20 12:00 30 10/10/20 12:00 Mechanical Ventilator 10/10/20 11:21 61 10/10/20 11:00 115/74 10/10/20 11:00 76 21 115/74 (88) 99 10/10/20 10:54 71 19 30 10/10/20 10:52 84 20 30 10/10/20 10:48 89 16 30 Intake and Output 10/10/20 10/11/20 19:00 07:00 Intake Total 809.75 ml 840 ml Output Total 25 ml 20 ml Balance 784.75 ml 820 ml Free Water 40 ml 80 ml IV Total 489.75 ml 280 ml Tube Feeding 280 ml 480 ml Output Urine Total 25 ml 20 ml # Bowel Movements 4 5 Current Medications Medications (Trade) Dose Ordered Sig/Alfredo Route PRN Reason Start Time Stop Time Status Last Admin Dose Admin Acetaminophen (Tylenol) 650 mg EVERY 6 HOURS PRN NG Temp >100.5 09/30/20 02:30 10/30/20 02:29 Chlorhexidine Gluconate (Babita-Hex 2%) 1 applic DAILY@2000 TOPIC 09/30/20 20:00 12/29/20 19:59 10/10/20 20:23 Dextrose (Dextrose 50%) 25 ml Q30M PRN IV Hypoglycemia 09/30/20 02:30 12/29/20 02:29 Dextrose (Dextrose 50%) 50 ml Q30M PRN IV Hypoglycemia 09/30/20 02:30 12/29/20 02:29 Hydrocortisone (Solu-CORTEF) 100 mg EVERY 8 HOURS IV 09/30/20 14:00 12/29/20 13:59 10/11/20 05:42 Levetiracetam 100 ml @ 400 mls/hr Q12HR IVPB 10/02/20 09:00 12/31/20 08:59 10/11/20 08:25 Meropenem 500 mg/ Sodium Chloride 55 ml @ 110 mls/hr EVERY 12 HOURS IVPB 10/11/20 10:00 10/16/20 09:59 Metoclopramide HCl (Reglan) 5 mg Q6H IVP 10/10/20 12:00 11/09/20 11:59 10/11/20 05:42 Norepinephrine Bitartrate 8 mg/ Dextrose 250 ml @ 0 mls/hr Q24H PRN IV DIRECTED 10/10/20 14:17 10/13/20 14:16 10/11/20 10:00 Pantoprazole (Protonix) 40 mg EVERY 12 HOURS IVP 10/07/20 21:00 11/06/20 20:59 10/11/20 08:24 Potassium Chloride 100 ml @ 50 mls/hr ONCE ONCE IVPB 10/11/20 09:30 10/11/20 11:29 Vancomycin HCl 300 ml @ 150 mls/hr ONCE ONCE IVPB 10/11/20 11:00 10/11/20 12:59 Vancomycin HCl ([facility] pharmacy to dose) 1 ea DAILY PRN MISC Per rx protocol 10/11/20 09:00 11/10/20 08:59 Laboratory Tests 10/10/20 17:10: Iron Level 51, Total Iron Binding Capacity 147L, Percent Iron Saturation 35, Unsaturated Iron Binding 96L 10/11/20 04:54: White Blood Count 35.7*H, Red Blood Count 3.04L, Hemoglobin 9.3L, Hematocrit 30.0L, Mean Corpuscular Volume 99, Mean Corpuscular Hemoglobin 30.5, Mean Corpus cular Hemoglobin Concent 31.0L, Red Cell Distribution Width 20.4H, Platelet Count 52L, Mean Platelet Volume 10.7H, Neutrophils (%) (Auto) , Lymphocytes (%) (Auto) , Monocytes (%) (Auto) , Eosinophils (%) (Auto) , Basophils (%) (Auto) , Differential Total Cells Counted 100, Neutrophils % (Manual) 95H, Lymphocytes % (Manual) 2L, Monocytes % (Manual) 3, Eosinophils % (Manual) 0, Basophils % (Manual) 0, Band Neutrophils 0, Platelet Estimate DecreasedL, Platelet Morphology Normal, Hypochromasia 1+, Anisocytosis 1+, Macrocytosis 1+, Schistocytes 1+, Prothrombin Time 15.7H, Prothromb Time International Ratio 1.5H , Sodium Level 141, Potassium Level 3.0L, Chloride Level 105, Carbon Dioxide Level 24, Anion Gap 13, Blood Urea Nitrogen 43H, Creatinine 5.1H, Estimat Glomerular Filtration Rate 13.5, Glucose Level 234H, Calcium Level 8.9, Phosphorus Level 3.7, Magnesium Level 2.0, Total Bilirubin 0.7, Aspartate Amino Transf (AST/SGOT) 40H, Alanine Aminotransferase (ALT/SGPT) 63, Alkaline Phosphatase 155H, Ammonia 19, C-Reactive Protein, Quantitative < 0.4, Pro-B-Type Natriuretic Peptide 88289S, Total Protein 5.4L, Albumin 2.3L, Globulin 3.1, Albumin/Globulin Ratio 0.7L, Hepatitis A IgM Antibody [Pending], Hepatitis B Surface Antigen [Pending], Hepatitis B Core IgM Antibody [Pending], Hepatitis C Antibody [Pending], HIV (1&2) Antibody Rapid [Pending] Height (Feet): 6 Height (Inches): 8.00 Weight (Pounds): 165 General Appearance: no apparent distress EENT: other - Intubated on ventilator Cardiovascular: normal rate Respiratory/Chest: decreased breath sounds Abdomen: distended Angel Whitehead MD Oct 11, 2020 10:06
--- NOTE | 2020-10-11 10:10 | NUR ---
NURSE NOTES: Dr Benavidez at bedside assessing pt. Updated him on pt's current condition.
[2020-10-11] MEDS: Meropenem 500 MG in NS 55 ML IVPB SCH ×2 (10:12→20:49)
[2020-10-11] MEDS ORDERED: Vancomycin 1.5gm/300ml Premix IVPB ONE (11:00)
--- NOTE | 2020-10-11 11:00 | NUR ---
NURSE NOTES: Dr Benavidez and Antoinette Coats aware of pt's newly developed head and facial movements. Pt nods head periodically while moving his mouth as if he is talking.
--- NOTE | 2020-10-11 11:43 | Surgery Progress Note ---
Surgery Progress Note Subjective Additional Comments plt low h/h noted renal insufficiency ill appearing on support prognosis guarded Objective Last 24 Hour Vital Signs Date Time Temp Pulse Resp B/P (MAP) Pulse Ox O2 Delivery O2 Flow Rate FiO2 10/11/20 11:15 74 12 30 10/11/20 10:30 80 30 94/62 (73) 99 10/11/20 10:00 82 31 108/72 (84) 100 10/11/20 10:00 105/63 10/11/20 09:30 65 33 93/60 (71) 100 10/11/20 09:00 93/59 10/11/20 09:00 73 28 93/59 (70) 100 10/11/20 08:30 83 28 106/68 (81) 99 10/11/20 08:00 98.1 82 25 104/66 (79) 99 10/11/20 08:00 104/66 10/11/20 08:00 30 10/11/20 08:00 Mechanical Ventilator 10/11/20 07:16 88 13 30 10/11/20 07:00 80 29 106/62 (77) 100 10/11/20 07:00 106/64 10/11/20 06:30 79 36 10/11/20 06:00 87 24 106/72 (83) 96 10/11/20 06:00 110/56 10/11/20 05:00 88 23 106/70 (82) 96 10/11/20 05:00 113/64 10/11/20 04:00 30 10/11/20 04:00 104 10/11/20 04:00 97.4 96 26 119/79 (92) 100 10/11/20 04:00 114/73 10/11/20 04:00 Mechanical Ventilator 10/11/20 03:53 102 17 30 10/11/20 03:00 91 19 99/66 (77) 97 10/11/20 03:00 114/62 10/11/20 02:00 112/69 10/11/20 02:00 89 19 123/77 (92) 98 10/11/20 01:00 107/67 10/11/20 01:00 87 15 107/65 (79) 98 10/11/20 00:00 81 17 108/66 (80) 98 10/11/20 00:00 107/64 10/11/20 00:00 30 10/11/20 00:00 Mechanical Ventilator 10/10/20 23:00 69 17 104/66 (79) 98 10/10/20 23:00 104/66 10/10/20 22:20 89 15 30 10/10/20 22:00 88 16 118/72 (87) 98 10/10/20 22:00 104/66 10/10/20 21:00 83 18 108/70 (83) 99 10/10/20 21:00 111/66 10/10/20 20:00 30 10/10/20 20:00 81 10/10/20 20:00 Mechanical Ventilator 10/10/20 20:00 97.8 72 31 100/63 (75) 100 10/10/20 20:00 104/56 10/10/20 19:18 74 14 30 10/10/20 19:00 69 31 94/60 (71) 99 10/10/20 19:00 94/60 10/10/20 18:00 105/68 10/10/20 18:00 92 23 105/68 (80) 97 10/10/20 17:00 133/79 10/10/20 17:00 107 28 113/74 (87) 97 10/10/20 16:35 91 15 30 10/10/20 16:15 116/67 10/10/20 16:00 30 10/10/20 16:00 115/72 10/10/20 16:00 88 10/10/20 16:00 Mechanical Ventilator 10/10/20 16:00 97.6 88 22 116/67 (83) 98 10/10/20 15:18 74 12 30 10/10/20 15:00 111/70 10/10/20 15:00 78 27 116/76 (89) 99 10/10/20 14:00 68 26 99/68 (78) 100 10/10/20 14:00 99/68 10/10/20 13:28 70 13 30 10/10/20 13:00 83 21 105/61 (76) 99 10/10/20 13:00 108/68 10/10/20 12:00 97.7 66 30 103/67 (79) 99 10/10/20 12:00 105/62 10/10/20 12:00 30 10/10/20 12:00 Mechanical Ventilator I&O Intake and Output 10/10/20 10/11/20 19:00 07:00 Intake Total 809.75 ml 840 ml Output Total 25 ml 20 ml Balance 784.75 ml 820 ml Free Water 40 ml 80 ml IV Total 489.75 ml 280 ml Tube Feeding 280 ml 480 ml Output Urine Total 25 ml 20 ml # Bowel Movements 4 5 Dressing: saturated Cardiovascular: RSR Respiratory: decreased breath sounds Abdomen: soft, non-tender, present bowel sounds, non-distended Extremities: no tenderness, no cyanosis Laboratory Tests Test 10/10/20 17:10 10/11/20 04:54 Iron Level 51 ug/dL (50-175) Total Iron Binding Capacity 147 ug/dL (250-450) L Percent Iron Saturation 35 % (15-50) Unsaturated Iron Binding 96 ug/dL (112-346) L White Blood Count 35.7 K/UL (4.8-10.8) *H Red Blood Count 3.04 M/UL (4.70-6.10) L Hemoglobin 9.3 G/DL (14.2-18.0) L Hematocrit 30.0 % (42.0-52.0) L Mean Corpuscular Volume 99 FL (80-99) Mean Corpuscular Hemoglobin 30.5 PG (27.0-31.0) Mean Corpuscular Hemoglobin Concent 31.0 G/DL (32.0-36.0) L Red Cell Distribution Width 20.4 % (11.6-14.8) H Platelet Count 52 K/UL (150-450) L Mean Platelet Volume 10.7 FL (6.5-10.1) H Neutrophils (%) (Auto) % (45.0-75.0) Lymphocytes (%) (Auto) % (20.0-45.0) Monocytes (%) (Auto) % (1.0-10.0) Eosinophils (%) (Auto) % (0.0-3.0) Basophils (%) (Auto) % (0.0-2.0) Differential Total Cells Counted 100 Neutrophils % (Manual) 95 % (45-75) H Lymphocytes % (Manual) 2 % (20-45) L Monocytes % (Manual) 3 % (1-10) Eosinophils % (Manual) 0 % (0-3) Basophils % (Manual) 0 % (0-2) Band Neutrophils 0 % (0-8) Platelet Estimate Decreased L Platelet Morphology Normal Hypochromasia 1+ Anisocytosis 1+ Macrocytosis 1+ Schistocytes 1+ Prothrombin Time 15.7 SEC (9.30-11.50) H Prothromb Time International Ratio 1.5 (0.9-1.1) H Sodium Level 141 MMOL/L (136-145) Potassium Level 3.0 MMOL/L (3.5-5.1) L Chloride Level 105 MMOL/L (98-107) Carbon Dioxide Level 24 MMOL/L (21-32) Anion Gap 13 mmol/L (5-15) Blood Urea Nitrogen 43 mg/dL (7-18) H Creatinine 5.1 MG/DL (0.55-1.30) H Estimat Glomerular Filtration Rate 13.5 mL/min (>60) Glucose Level 234 MG/DL (74-106) H Calcium Level 8.9 MG/DL (8.5-10.1) Phosphorus Level 3.7 MG/DL (2.5-4.9) Magnesium Level 2.0 MG/DL (1.8-2.4) Total Bilirubin 0.7 MG/DL (0.2-1.0) Aspartate Amino Transf (AST/SGOT) 40 U/L (15-37) H Alanine Aminotransferase (ALT/SGPT) 63 U/L (12-78) Alkaline Phosphatase 155 U/L (46-116) H Ammonia 19 umol/L (11-32) C-Reactive Protein, Quantitative < 0.4 mg/dL (0.00-0.90) Pro-B-Type Natriuretic Peptide 99068 pg/mL (0-125) H Total Protein 5.4 G/DL (6.4-8.2) L Albumin 2.3 G/DL (3.4-5.0) L Globulin 3.1 g/dL Albumin/Globulin Ratio 0.7 (1.0-2.7) L Hepatitis A IgM Antibody Pending Hepatitis B Surface Antigen Pending Hepatitis B Core IgM Antibody Pending Hepatitis C Antibody Pending HIV (1&2) Antibody Rapid Pending Plan Problems: (1) Cardiopulmonary arrest (2) Septic shock Assessment & Plan: 75 male leukocytosis lactic acidosis septic shock intubated intensive care unit. Unable to give abdominal exam, exam otherwise benign abdominal unlikely etiology imaging reviewed labs reviewed. Continue ventilator support respiratory in nature seemingly. NG tube IV fluids IV antibiotics will follow with recommendations thank you letter participation's care bleeding from HD cath site ddavp ordered will monitor DAILY ESTIMATED NEEDS: Needs based on Critical care 74.2kg 22-28 kcals/kg [id number] total kcals 1.2-2 g protein/kg 89-148 g total protein 25-30 mL/kg 3541-0213 total fluid mLs NUTRITION DIAGNOSIS: Swallowing difficulty r/t respiratory arrest as evidenced by pt intubated, on pressor support, ICU status. ENTERAL NUTRITION RECOMMENDATIONS: As able NEPRO @40ml/hr x24 hrs to provide 960ml, 1728 kcal, 78g pro, 698ml free H2O -When stable for feeds rec renal formula at this time d/t increasing K and phos. -obtain GI access, initiate Nepro @20ml/hr for 6 hrs, advance as tolerated 10ml/hr 2q4-6 hrs to goal -When tolerating TF at goal, add prosource 1 pack BID to better meet est pro needs. -Flush per HOB over 30 degrees. ----> If hemodynamically unstable, rec trophic feeds of Nepro @10ml/hr to maintain gut integrity. ADDITIONAL RECOMMENDATIONS: 1) F/up w/ H&P 2) Maintain D5 IV hydration while NPO 3) Maintain calibrated bed scale wts 4) Non oral feeds when stable (3) Lactic acidosis (4) Failure to thrive (5) Pancytopenia (6) Respiratory failure (7) Hypoxia (8) Pneumonia (9) Respiratory arrest (10) Hypernatremia (11) Renal failure Oni Walker Oct 11, 2020 11:43
--- NOTE | 2020-10-11 12:12 | Pulmonology Progress Note ---
Subjective ROS Limited/Unobtainable: Yes Interval Events: No change; remains intubated; still on pressors Constitutional: Reports: no symptoms HEENT: Repors: no symptoms Respiratory: Reports: no symptoms Cardiovascular: Reports: no symptoms Gastrointestinal/Abdominal: Reports: no symptoms Genitourinary: Reports: no symptoms Allergies: Coded Allergies: No Known Allergies (Unverified , 09/13/20) Objective Last 24 Hour Vital Signs Date Time Temp Pulse Resp B/P (MAP) Pulse Ox O2 Delivery O2 Flow Rate FiO2 10/11/20 12:00 101/69 10/11/20 12:00 30 10/11/20 12:00 98.1 79 35 101/69 (80) 100 10/11/20 12:00 Mechanical Ventilator 10/11/20 11:30 80 31 100/67 (78) 100 10/11/20 11:15 74 12 30 10/11/20 11:00 81 23 104/64 (77) 99 10/11/20 11:00 104/64 10/11/20 10:30 80 30 94/62 (73) 99 10/11/20 10:00 82 31 108/72 (84) 100 10/11/20 10:00 105/63 10/11/20 09:30 65 33 93/60 (71) 100 10/11/20 09:00 93/59 10/11/20 09:00 73 28 93/59 (70) 100 10/11/20 08:30 83 28 106/68 (81) 99 10/11/20 08:00 98.1 82 25 104/66 (79) 99 10/11/20 08:00 104/66 10/11/20 08:00 30 10/11/20 08:00 Mechanical Ventilator 10/11/20 07:16 88 13 30 10/11/20 07:00 80 29 106/62 (77) 100 10/11/20 07:00 106/64 10/11/20 06:30 79 36 10/11/20 06:00 87 24 106/72 (83) 96 10/11/20 06:00 110/56 10/11/20 05:00 88 23 106/70 (82) 96 10/11/20 05:00 113/64 10/11/20 04:00 30 10/11/20 04:00 104 10/11/20 04:00 97.4 96 26 119/79 (92) 100 10/11/20 04:00 114/73 10/11/20 04:00 Mechanical Ventilator 10/11/20 03:53 102 17 30 10/11/20 03:00 91 19 99/66 (77) 97 10/11/20 03:00 114/62 10/11/20 02:00 112/69 10/11/20 02:00 89 19 123/77 (92) 98 10/11/20 01:00 107/67 10/11/20 01:00 87 15 107/65 (79) 98 10/11/20 00:00 81 17 108/66 (80) 98 10/11/20 00:00 107/64 10/11/20 00:00 30 10/11/20 00:00 Mechanical Ventilator 10/10/20 23:00 69 17 104/66 (79) 98 10/10/20 23:00 104/66 10/10/20 22:20 89 15 30 10/10/20 22:00 88 16 118/72 (87) 98 10/10/20 22:00 104/66 10/10/20 21:00 83 18 108/70 (83) 99 10/10/20 21:00 111/66 10/10/20 20:00 30 10/10/20 20:00 81 10/10/20 20:00 Mechanical Ventilator 10/10/20 20:00 97.8 72 31 100/63 (75) 100 10/10/20 20:00 104/56 10/10/20 19:18 74 14 30 10/10/20 19:00 69 31 94/60 (71) 99 10/10/20 19:00 94/60 10/10/20 18:00 105/68 10/10/20 18:00 92 23 105/68 (80) 97 10/10/20 17:00 133/79 10/10/20 17:00 107 28 113/74 (87) 97 10/10/20 16:35 91 15 30 10/10/20 16:15 116/67 10/10/20 16:00 30 10/10/20 16:00 115/72 10/10/20 16:00 88 10/10/20 16:00 Mechanical Ventilator 10/10/20 16:00 97.6 88 22 116/67 (83) 98 10/10/20 15:18 74 12 30 10/10/20 15:00 111/70 10/10/20 15:00 78 27 116/76 (89) 99 10/10/20 14:00 68 26 99/68 (78) 100 10/10/20 14:00 99/68 10/10/20 13:28 70 13 30 10/10/20 13:00 83 21 105/61 (76) 99 10/10/20 13:00 108/68 Intake and Output 10/10/20 10/11/20 19:00 07:00 Intake Total 809.75 ml 840 ml Output Total 25 ml 20 ml Balance 784.75 ml 820 ml Free Water 40 ml 80 ml IV Total 489.75 ml 280 ml Tube Feeding 280 ml 480 ml Output Urine Total 25 ml 20 ml # Bowel Movements 4 5 General Appearance: no acute distress HEENT: normocephalic Respiratory: chest wall non-tender Cardiovascular: normal peripheral pulses Abdomen: normal bowel sounds Neurologic: unresponsiveness Microbiology Date/Time Source Procedure Growth Status 10/09/20 17:30 Urine,Clean Catch Urine Culture - Preliminary Yeast Species Resulted 10/09/20 17:30 Sputum Expectorated Gram Stain - Final Resulted 10/09/20 17:30 Sputum Culture - Preliminary Gram Negative Bacillus 1 YEAST Resulted Laboratory Tests 10/10/20 17:10: Iron Level 51, Total Iron Binding Capacity 147L, Percent Iron Saturation 35, Unsaturated Iron Binding 96L 10/11/20 04:54: White Blood Count 35.7*H, Red Blood Count 3.04L, Hemoglobin 9.3L, Hematocrit 30.0L, Mean Corpuscular Volume 99, Mean Corpuscular Hemoglobin 30.5, Mean Corpuscular Hemoglobin Concent 31.0L, Red Cell Distribution Width 20.4H, Platelet Count 52L, Mean Platelet Volume 10.7H, Neutrophils (%) (Auto) , Lymphocytes (%) (Auto) , Monocytes (%) (Auto) , Eosinophils (%) (Auto) , Basophils (%) (Auto) , Differential Total Cells Counted 100, Neutrophils % (Manual) 95H, Lymphocytes % (Manual) 2L, Monocytes % (Manual) 3, Eosinophils % (Manual) 0, Basophils % (Manual) 0, Band Neutrophils 0, Platelet Estimate DecreasedL, Platelet Morphology Normal, Hypochromasia 1+, Anisocytosis 1+, Macrocytosis 1+, Schistocytes 1+, Prothrombin Time 15.7H, Prothromb Time International Ratio 1.5H, Sodium Level 141, Potassium Level 3.0L, Chloride Level 105, Carbon Dioxide Level 24, Anion Gap 13, Blood Urea Nitrogen 43H, Creatinine 5.1H, Estimat Glomerular Filtration Rate 13.5, Glucose Level 234H, Calcium Level 8.9, Phosphorus Level 3.7, Magnesium Level 2.0, Total Bilirubin 0.7, Aspartate Amino Transf (AST/SGOT) 40H, Alanine Aminotransferase (ALT/SGPT) 63, Alkaline Phosphatase 155H, Ammonia 19, C-Reactive Protein, Quantitative < 0.4, Pro-B-Type Natriuretic Peptide 13404W, Total Protein 5.4L, Albumin 2.3L, Globulin 3.1, Albumin/Globulin Ratio 0.7L, Hepatitis A IgM Antibody [Pending], Hepatitis B Surface Antigen [Pending], Hepatitis B Core IgM Antibody [Pending], Hepatitis C Antibody [Pending], HIV (1&2) Antibody Rapid [Pending] Current Medications Medications (Trade) Dose Ordered Sig/Alfredo Route PRN Reason Start Time Stop Time Status Last Admin Dose Admin Acetaminophen (Tylenol) 650 mg EVERY 6 HOURS PRN NG Temp >100.5 09/30/20 02:30 10/30/20 02:29 Chlorhexidine Gluconate (Babita-Hex 2%) 1 applic DAILY@2000 TOPIC 09/30/20 20:00 12/29/20 19:59 10/10/20 20:23 Dextrose (Dextrose 50%) 25 ml Q30M PRN IV Hypoglycemia 09/30/20 02:30 12/29/20 02:29 Dextrose (Dextrose 50%) 50 ml Q30M PRN IV Hypoglycemia 09/30/20 02:30 12/29/20 02:29 Hydrocortisone (Solu-CORTEF) 100 mg EVERY 8 HOURS IV 09/30/20 14:00 12/29/20 13:59 10/11/20 05:42 Levetiracetam 100 ml @ 400 mls/hr Q12HR IVPB 10/02/20 09:00 12/31/20 08:59 10/11/20 08:25 Meropenem 500 mg/ Sodium Chloride 55 ml @ 110 mls/hr EVERY 12 HOURS IVPB 10/11/20 10:00 10/16/20 09:59 10/11/20 10:12 Metoclopramide HCl (Reglan) 5 mg Q6H IVP 10/10/20 12:00 11/09/20 11:59 10/11/20 11:43 Norepinephrine Bitartrate 8 mg/ Dextrose 250 ml @ 0 mls/hr Q24H PRN IV DIRECTED 10/10/20 14:17 10/13/20 14:16 10/11/20 10:00 Pantoprazole (Protonix) 40 mg EVERY 12 HOURS IVP 10/07/20 21:00 11/06/20 20:59 10/11/20 08:24 Vancomycin HCl 300 ml @ 150 mls/hr ONCE ONCE IVPB 10/11/20 11:00 10/11/20 12:59 10/11/20 11:44 Vancomycin HCl ([facility] pharmacy to dose) 1 ea DAILY PRN MISC Per rx protocol 10/11/20 09:00 11/10/20 08:59 Assessment/Plan Assessment/Plan 1. Respiratory failure. 2. Multiple medical problems consisting of hypertension, thalassemia, chronic pancreatitis, GERD, neuropathy, and depression. 3. Shock; on pressors 4. Acute renal failure and metabolic acidosis 5. Lactic acidemia 6. AMS; CT brain negative 7. Thrombocytopenia DISCUSSION: Code status needs to be discussed with family. Pt is now DNR. Currently the patient is intubated. s/p dialysis Now FiO2 30%, PEEP 5 -> has failed weaning trials Continue IV fluids. Pressors prn DVT and GI prophylaxis. Broad-spectrum antibiotics. We will follow carefully. Bicarb supplementation ABG adequate Discussed with family He remains DNR but intubation OK Will not extubate given poor mental status and pressor usage The care of this patient was discussed with my supervising physician Time spent for this encounter was approximately 31 minutes Dioni Coats Oct 11, 2020 12:12
--- NOTE | 2020-10-11 13:42 | General Progress Note ---
Subjective ROS Limited/Unobtainable: No Allergies: Coded Allergies: No Known Allergies (Unverified , 09/13/20) Objective Last 24 Hour Vital Signs Date Time Temp Pulse Resp B/P (MAP) Pulse Ox O2 Delivery O2 Flow Rate FiO2 10/11/20 13:00 71 30 94/62 (73) 99 10/11/20 13:00 94/62 10/11/20 12:00 79 10/11/20 12:00 101/69 10/11/20 12:00 30 10/11/20 12:00 98.1 79 35 101/69 (80) 100 10/11/20 12:00 Mechanical Ventilator 10/11/20 11:30 80 31 100/67 (78) 100 10/11/20 11:15 74 12 30 10/11/20 11:00 81 23 104/64 (77) 99 10/11/20 11:00 104/64 10/11/20 10:30 80 30 94/62 (73) 99 10/11/20 10:00 82 31 108/72 (84) 100 10/11/20 10:00 105/63 10/11/20 09:30 65 33 93/60 (71) 100 10/11/20 09:00 93/59 10/11/20 09:00 73 28 93/59 (70) 100 10/11/20 08:30 83 28 106/68 (81) 99 10/11/20 08:00 98.1 82 25 104/66 (79) 99 10/11/20 08:00 104/66 10/11/20 08:00 89 10/11/20 08:00 30 10/11/20 08:00 Mechanical Ventilator 10/11/20 07:16 88 13 30 10/11/20 07:00 80 29 106/62 (77) 100 10/11/20 07:00 106/64 10/11/20 06:30 79 36 10/11/20 06:00 87 24 106/72 (83) 96 10/11/20 06:00 110/56 10/11/20 05:00 88 23 106/70 (82) 96 10/11/20 05:00 113/64 10/11/20 04:00 30 10/11/20 04:00 104 10/11/20 04:00 97.4 96 26 119/79 (92) 100 10/11/20 04:00 114/73 10/11/20 04:00 Mechanical Ventilator 10/11/20 03:53 102 17 30 10/11/20 03:00 91 19 99/66 (77) 97 10/11/20 03:00 114/62 10/11/20 02:00 112/69 10/11/20 02:00 89 19 123/77 (92) 98 10/11/20 01:00 107/67 10/11/20 01:00 87 15 107/65 (79) 98 10/11/20 00:00 81 17 108/66 (80) 98 10/11/20 00:00 107/64 10/11/20 00:00 30 10/11/20 00:00 Mechanical Ventilator 10/10/20 23:00 69 17 104/66 (79) 98 10/10/20 23:00 104/66 10/10/20 22:20 89 15 30 10/10/20 22:00 88 16 118/72 (87) 98 10/10/20 22:00 104/66 10/10/20 21:00 83 18 108/70 (83) 99 10/10/20 21:00 111/66 10/10/20 20:00 30 10/10/20 20:00 81 10/10/20 20:00 Mechanical Ventilator 10/10/20 20:00 97.8 72 31 100/63 (75) 100 10/10/20 20:00 104/56 10/10/20 19:18 74 14 30 10/10/20 19:00 69 31 94/60 (71) 99 10/10/20 19:00 94/60 10/10/20 18:00 105/68 10/10/20 18:00 92 23 105/68 (80) 97 10/10/20 17:00 133/79 10/10/20 17:00 107 28 113/74 (87) 97 10/10/20 16:35 91 15 30 10/10/20 16:15 116/67 10/10/20 16:00 30 10/10/20 16:00 115/72 10/10/20 16:00 88 10/10/20 16:00 Mechanical Ventilator 10/10/20 16:00 97.6 88 22 116/67 (83) 98 10/10/20 15:18 74 12 30 10/10/20 15:00 111/70 10/10/20 15:00 78 27 116/76 (89) 99 10/10/20 14:00 68 26 99/68 (78) 100 10/10/20 14:00 99/68 Intake and Output 10/10/20 10/11/20 19:00 07:00 Intake Total 809.75 ml 840 ml Output Total 25 ml 20 ml Balance 784.75 ml 820 ml Free Water 40 ml 80 ml IV Total 489.75 ml 280 ml Tube Feeding 280 ml 480 ml Output Urine Total 25 ml 20 ml # Bowel Movements 4 5 Laboratory Tests 10/10/20 17:10: Iron Level 51, Total Iron Binding Capacity 147L, Percent Iron Saturation 35, Unsaturated Iron Binding 96L 10/11/20 04:54: White Blood Count 35.7*H, Red Blood Count 3.04L, Hemoglobin 9.3L, Hematocrit 30.0L, Mean Corpuscular Volume 99, Mean Corpuscular Hemoglobin 30.5, Mean Corpuscular Hemoglobin Concent 31.0L, Red Cell Distribution Width 20.4H, P latelet Count 52L, Mean Platelet Volume 10.7H, Neutrophils (%) (Auto) , Lymphocytes (%) (Auto) , Monocytes (%) (Auto) , Eosinophils (%) (Auto) , Basophils (%) (Auto) , Differential Total Cells Counted 100, Neutrophils % (Manual) 95H, Lymphocytes % (Manual) 2L, Monocytes % (Manual) 3, Eosinophils % (Manual) 0, Basophils % (Manual) 0, Band Neutrophils 0, Platelet Estimate DecreasedL, Platelet Morphology Normal, Hypochromasia 1+, Anisocytosis 1+, Macrocytosis 1+, Schistocytes 1+, Prothrombin Time 15.7H, Prothromb Time International Ratio 1.5H, Sodium Level 141, Potassium Level 3.0L, Chloride Level 105, Carbon Dioxide Level 24, Anion Gap 13, Blood Urea Nitrogen 43H, Creatinine 5.1H, Estimat Glomerular Filtration Rate 13.5, Glucose Level 234H, Calcium Level 8.9, Phosphorus Level 3.7, Magnesium Level 2.0, Total Bilirubin 0.7, Aspartate Amino Transf (AST/SGOT) 40H, Alanine Aminotransferase (ALT/SGPT) 63, Alkaline Phosphatase 155H, Ammonia 19, C-Reactive Protein, Quantitative < 0.4, Pro-B-Type Natriuretic Peptide 55286T, Total Protein 5.4L, Albumin 2.3L, Globulin 3.1, Albumin/Globulin Ratio 0.7L, Hepatitis A IgM Antibody [Pending], Hepatitis B Surface Antigen [Pending], Hepatitis B Core IgM Antibody [Pending], Hepatitis C Antibody [Pending], HIV (1&2) Antibody Rapid [Pending] Height (Feet): 6 Height (Inches): 8.00 Weight (Pounds): 165 General Appearance: no apparent distress EENT: normal ENT inspection Neck: supple Respiratory/Chest: decreased breath sounds Abdomen: hypoactive bowel sounds Extremities: non-tender Assessment/Plan Status: unchanged Assessment/Plan: 1. History of thalassemia. 2. Hypertension. 3. Chronic pancreatitis. 4. Dyslipidemia. 5. Atherosclerosis. 6. GERD. 7. Renal cyst. 8. Peripheral neuropathy. 9. History of colonic polyps. 10. Depression. 11. respiratory failure 12. renal failure 13 anemia 14.ascites ngtf pending paracentesis on reglan for elevated residuals repeat labs hepatitis panel ammonia level Nando Lyles MD Oct 11, 2020 13:42
--- NOTE | 2020-10-11 14:30 | NUR ---
NURSE NOTES: Received report from KIRBY Tarango. Patient is obtunded. ETT 7.5/24cm at lip line with vent setting ac 8, vt 500, peep 5 and Fio2 30%. O2 sat 99% on the monitor. NGT intact and running nepro @ 40ml/hr. Rectal tube intact and no stool noted. [place] intact and draining son color urine. Right IJ TLC intact, clean and running with levophed 8mcg/min. Kept dry, clean and comfortable. Will continue plan of care.
--- NOTE | 2020-10-11 15:01 | Diagnostic Imaging Report ---
Indication: Abdominal pain and distention Technique: Multiplanar pardo scale duplex Doppler imaging of the abdomen Comparison: CT the abdomen and pelvis 10/08/2020 Findings: Subtle nodular contour of the liver is seen. No focal hepatic mass lesion is demonstrated sonographically however note that evaluation of the liver is limited. There is normal in size. There is cholelithiasis and gallbladder wall thickening. Coronal thickness is somewhat irregular. No color flow images were obtained of the gallbladder. Sonographic Luque's sign was not documented. No appreciable intrahepatic biliary ductal dilatation. Common bile duct normal in caliber measuring 6 mm diameter. Portal vein appears patent. Question degree of stenosis of the portal vein is extensively technical. There is large volume ascites. Spleen appears normal in size. Pancreas is not visualized due to overlying bowel gas. Abdominal aorta and IVC are not visualized due to overlying bowel gas. Kidneys are poorly evaluated but shows increased echogenicity. No hydronephrosis is seen. IMPRESSION: Technically limited exam with suboptimal visualization. Within limitations of this exam: Subtle nodular contour of the liver suggesting cirrhosis. Cholelithiasis and gallbladder wall thickening which is nonspecific intensity related to ascites. There is somewhat irregular thickening of the gallbladder wall with a somewhat mural intermediate attenuation component. This may be related to tumefactive sludge however, malignancy not excluded. Given further evaluation with MRI of the abdomen without and with contrast. Questionable portal vein stenosis versus partial thrombosis which may potentially be technical. Again, consider contrast-enhanced CT or MRI. Large volume ascites.
--- NOTE | 2020-10-11 15:48 | Neurology Progress Note ---
Interim History Interim History ROS Limited/Unobtainable: No Events: remains intubated not awake Objective Physical Exam Last Vital Signs Date Time Temp Pulse Resp B/P (MAP) Pulse Ox O2 Delivery O2 Flow Rate FiO2 10/11/20 15:15 86 10 30 10/11/20 14:30 105/69 (81) 100 10/11/20 12:00 98.1 10/11/20 12:00 Mechanical Ventilator Laboratory Tests Test 10/10/20 17:10 10/11/20 04:54 Iron Level 51 ug/dL (50-175) Total Iron Binding Capacity 147 ug/dL (250-450) L Percent Iron Saturation 35 % (15-50) Unsaturated Iron Binding 96 ug/dL (112-346) L White Blood Count 35.7 K/UL (4.8-10.8) *H Red Blood Count 3.04 M/UL (4.70-6.10) L Hemoglobin 9.3 G/DL (14.2-18.0) L Hematocrit 30.0 % (42.0-52.0) L Mean Corpuscular Volume 99 FL (80-99) Mean Corpuscular Hemoglobin 30.5 PG (27.0-31.0) Mean Corpuscular Hemoglobin Concent 31.0 G/DL (32.0-36.0) L Red Cell Distribution Width 20.4 % (11.6-14.8) H Platelet Count 52 K/UL (150-450) L Mean Platelet Volume 10.7 FL (6.5-10.1) H Neutrophils (%) (Auto) % (45.0-75.0) Lymphocytes (%) (Auto) % (20.0-45.0) Monocytes (%) (Auto) % (1.0-10.0) Eosinophils (%) (Auto) % (0.0-3.0) Basophils (%) (Auto) % (0.0-2.0) Differential Total Cells Counted 100 Neutrophils % (Manual) 95 % (45-75) H Lymphocytes % (Manual) 2 % (20-45) L Monocytes % (Manual) 3 % (1-10) Eosinophils % (Manual) 0 % (0-3) Basophils % (Manual) 0 % (0-2) Band Neutrophils 0 % (0-8) Platelet Estimate Decreased L Platelet Morphology Normal Hypochromasia 1+ Anisocytosis 1+ Macrocytosis 1+ Schistocytes 1+ Prothrombin Time 15.7 SEC (9.30-11.50) H Prothromb Time International Ratio 1.5 (0.9-1.1) H Sodium Level 141 MMOL/L (136-145) Potassium Level 3.0 MMOL/L (3.5-5.1) L Chloride Level 105 MMOL/L (98-107) Carbon Dioxide Level 24 MMOL/L (21-32) Anion Gap 13 mmol/L (5-15) Blood Urea Nitrogen 43 mg/dL (7-18) H Creatinine 5.1 MG/DL (0.55-1.30) H Estimat Glomerular Filtration Rate 13.5 mL/min (>60) Glucose Level 234 MG/DL (74-106) H Calcium Level 8.9 MG/DL (8.5-10.1) Phosphorus Level 3.7 MG/DL (2.5-4.9) Magnesium Level 2.0 MG/DL (1.8-2.4) Total Bilirubin 0.7 MG/DL (0.2-1.0) Aspartate Amino Transf (AST/SGOT) 40 U/L (15-37) H Alanine Aminotransferase (ALT/SGPT) 63 U/L (12-78) Alkaline Phosphatase 155 U/L (46-116) H Ammonia 19 umol/L (11-32) C-Reactive Protein, Quantitative < 0.4 mg/dL (0.00-0.90) Pro-B-Type Natriuretic Peptide 13831 pg/mL (0-125) H Total Protein 5.4 G/DL (6.4-8.2) L Albumin 2.3 G/DL (3.4-5.0) L Globulin 3.1 g/dL Albumin/Globulin Ratio 0.7 (1.0-2.7) L Hepatitis A IgM Antibody Pending Hepatitis B Surface Antigen Pending Hepatitis B Core IgM Antibody Pending Hepatitis C Antibody Pending HIV (1&2) Antibody Rapid Pending Neurologic Exam Objective Physical Exam: Limited due to patients status unresponsive comatose, Pupils are sluggish, pupils equal reactive to light corneal reflex absent, gag reflex absent facial symmetric motor: spontaneous movement in left hand, sensory responses to suctioning thru trach not to pain. Impression/Recommendations Status: unchanged Diagnostic Impression Imaging: EEG reviewed CT Head: No evidence of acute intracranial hemorrhage, mass effect or cortical edema. MRI recommended for more sensitive evaluation as clinically indicated. Atrophy and nonspecific periventricular hypoattenuation suggestive of chronic ischemic microvascular changes. Assessment And Rec's 1. Anoxic Encephalopathy --> EEG consistent with seizure activity --> S/p recent CODE Blue and intubation --> CT head reviewed as above --> chances of recovery are small, pt has a poor prognosis. 2. Abnormal EEG --> Possible subclinical seizure activity, it is not definitive --> Will start patient on presumptive seizure medication, Agree to continue with Keppra will increase to 1000mg IV BID 3. Acute hypoxemic respiratory failure --> s/p intubation on vent 4. Questionable Pneumonia vs other ---> on abx --> Covid Ag is NEGATIVE, PCR not detected 5. Anemia 6. FTT --> Supportive care 7. CKD --> HD Thank you for allowing us to participate in patient's care, plan of care was discussed with Dr. Jose Armando Camarena who agrees and has reviewed EEG results. Stacy Hinds NP Oct 11, 2020 15:48
--- NOTE | 2020-10-11 16:02 | NUR ---
INSURANCE CLINICALS FAXED TO [employer] CM: [phone] and [phone]
--- NOTE | 2020-10-11 16:39 | NUR ---
NURSE NOTES: Bed bath given. Kept dry, clean and comfortable.
[2020-10-11] MEDS ORDERED: NS 275ml ONE (16:58)
--- NOTE | 2020-10-11 19:17 | Internal Med Progress Note ---
Subjective Date of Service: Oct 11, 2020 Physician Name Semaj Kay Attending Physician Ken Hutton MD Current Medications Medications (Trade) Dose Ordered Sig/Alfredo Route PRN Reason Start Time Stop Time Status Last Admin Dose Admin Acetaminophen (Tylenol) 650 mg EVERY 6 HOURS PRN NG Temp >100.5 09/30/20 02:30 10/30/20 02:29 Chlorhexidine Gluconate (Babita-Hex 2%) 1 applic DAILY@2000 TOPIC 09/30/20 20:00 12/29/20 19:59 10/10/20 20:23 Dextrose (Dextrose 50%) 25 ml Q30M PRN IV Hypoglycemia 09/30/20 02:30 12/29/20 02:29 Dextrose (Dextrose 50%) 50 ml Q30M PRN IV Hypoglycemia 09/30/20 02:30 12/29/20 02:29 Hydrocortisone (Solu-CORTEF) 100 mg EVERY 8 HOURS IV 09/30/20 14:00 12/29/20 13:59 10/11/20 13:54 Levetiracetam 100 ml @ 400 mls/hr Q12HR IVPB 10/02/20 09:00 12/31/20 08:59 10/11/20 08:25 Meropenem 500 mg/ Sodium Chloride 55 ml @ 110 mls/hr EVERY 12 HOURS IVPB 10/11/20 10:00 10/16/20 09:59 10/11/20 10:12 Metoclopramide HCl (Reglan) 5 mg Q6H IVP 10/10/20 12:00 11/09/20 11:59 10/11/20 17:05 Norepinephrine Bitartrate 8 mg/ Dextrose 250 ml @ 0 mls/hr Q24H PRN IV DIRECTED 10/10/20 14:17 10/13/20 14:16 10/11/20 10:00 Pantoprazole (Protonix) 40 mg EVERY 12 HOURS IVP 10/07/20 21:00 11/06/20 20:59 10/11/20 08:24 Vancomycin HCl (Vanco pharmacy to dose) 1 ea DAILY PRN MISC Per rx protocol 10/11/20 09:00 11/10/20 08:59 Allergies: Coded Allergies: No Known Allergies (Unverified , 09/13/20) ROS Limited/Unobtainable: Yes Subjective 75 YO M with recent diagnosis of thalassemia admitted with altered mental status. S/P cardiopulmonary arrest 09/29/20. Intubated and sedated. ICU. Cover for Int Sudeep-Dr Hutton Objective Last Vital Signs Date Time Temp Pulse Resp B/P (MAP) Pulse Ox O2 Delivery O2 Flow Rate FiO2 10/11/20 18:00 73 33 100/68 (79) 99 10/11/20 16:00 30 10/11/20 16:00 98.0 10/11/20 16:00 Mechanical Ventilator Laboratory Tests Test 10/11/20 04:54 10/11/20 16:15 White Blood Count 35.7 K/UL (4.8-10.8) *H Red Blood Count 3.04 M/UL (4.70-6.10) L Hemoglobin 9.3 G/DL (14.2-18.0) L Hematocrit 30.0 % (42.0-52.0) L Mean Corpuscular Volume 99 FL (80-99) Mean Corpuscular Hemoglobin 30.5 PG (27.0-31.0) Mean Corpuscular Hemoglobin Concent 31.0 G/DL (32.0-36.0) L Red Cell Distribution Width 20.4 % (11.6-14.8) H Platelet Count 52 K/UL (150-450) L Mean Platelet Volume 10.7 FL (6.5-10.1) H Neutrophils (%) (Auto) % (45.0-75.0) Lymphocytes (%) (Auto) % (20.0-45.0) Monocytes (%) (Auto) % (1.0-10.0) Eosinophils (%) (Auto) % (0.0-3.0) Basophils (%) (Auto) % (0.0-2.0) Differential Total Cells Counted 100 Neutrophils % (Manual) 95 % (45-75) H Lymphocytes % (Manual) 2 % (20-45) L Monocytes % (Manual) 3 % (1-10) Eosinophils % (Manual) 0 % (0-3) Basophils % (Manual) 0 % (0-2) Band Neutrophils 0 % (0-8) Platelet Estimate Decreased L Platelet Morphology Normal Hypochromasia 1+ Anisocytosis 1+ Macrocytosis 1+ Schistocytes 1+ Prothrombin Time 15.7 SEC (9.30-11.50) H Prothromb Time International Ratio 1.5 (0.9-1.1) H Sodium Level 141 MMOL/L (136-145) Potassium Level 3.0 MMOL/L (3.5-5.1) L Chloride Level 105 MMOL/L (98-107) Carbon Dioxide Level 24 MMOL/L (21-32) Anion Gap 13 mmol/L (5-15) Blood Urea Nitrogen 43 mg/dL (7-18) H Creatinine 5.1 MG/DL (0.55-1.30) H Estimat Glomerular Filtration Rate 13.5 mL/min (>60) Glucose Level 234 MG/DL (74-106) H Calcium Level 8.9 MG/DL (8.5-10.1) Phosphorus Level 3.7 MG/DL (2.5-4.9) Magnesium Level 2.0 MG/DL (1.8-2.4) Total Bilirubin 0.7 MG/DL (0.2-1.0) Aspartate Amino Transf (AST/SGOT) 40 U/L (15-37) H Alanine Aminotransferase (ALT/SGPT) 63 U/L (12-78) Alkaline Phosphatase 155 U/L (46-116) H Ammonia 19 umol/L (11-32) C-Reactive Protein, Quantitative < 0.4 mg/dL (0.00-0.90) Pro-B-Type Natriuretic Peptide 62627 pg/mL (0-125) H Total Protein 5.4 G/DL (6.4-8.2) L Albumin 2.3 G/DL (3.4-5.0) L Globulin 3.1 g/dL Albumin/Globulin Ratio 0.7 (1.0-2.7) L Hepatitis A IgM Antibody Pending Hepatitis B Surface Antigen Pending Hepatitis B Core IgM Antibody Pending Hepatitis C Antibody Pending HIV (1&2) Antibody Rapid Pending Activated Partial Thromboplast Time 34 SEC (23-33) H Microbiology Date/Time Source Procedure Growth Status 10/09/20 17:30 Urine,Clean Catch Urine Culture - Preliminary Yeast Species Resulted 10/09/20 17:30 Sputum Expectorated Gram Stain - Final Resulted 10/09/20 17:30 Sputum Culture - Preliminary Gram Negative Bacillus 1 YEAST Resulted Intake and Output 10/10/20 10/11/20 19:00 07:00 Intake Total 809.75 ml 840 ml Output Total 25 ml 20 ml Balance 784.75 ml 820 ml Free Water 40 ml 80 ml IV Total 489.75 ml 280 ml Tube Feeding 280 ml 480 ml Output Urine Total 25 ml 20 ml # Bowel Movements 4 5 Objective Physical Exam General Appearance: lethargic Lines, tubes and drains: central line - R IJ HEENT: normocephalic, atraumatic, other - Pupils are 2 mm and sluggish reaction to light. Neck: non-tender Respiratory/Chest: Mech vent; lungs with rhonchi and wheezes bilat Cardiovascular/Chest: normal rate Abdomen: no mass, hypoactive bowel sounds Extremities: non-pitting Neurologic: unresponsiveness Assessment/Plan Assessment/Plan Assessment/Plan Status: unchanged Assessment/Plan: 75 y/o Male admitted to the Hospital with; # AMS # Acute encephalopathy # Acute hypoxemic respiratory failure # Respiratory acidosis. ABG monitoring. Intubation in the ER Pulmonary/ICU wtih Dr. Benavidez Renal consultation with Dr. Estrada. Add CT head wo contrast to rule out bleed vs other completing today. On route. EEG ordered today as no prior order found. Concern for anoxic brain injury. Seizure disorder # Pneumonia vs other ID consultation with Dr. Ricketts Zoeric and Vancomycin Follow up lactate and wbc, cultures Covid Ag is NEGATIVE, PCR NEG Leukocytosis # Thalassemia Recent BM biopsy which was negative per family report. Nahma MR [place] is [id number] ( [place] [facility] [place] Supportive care Consider Hematology follow up as needed Continue keppra per neurology=Dr Carranza # FTT - anorexia and weight loss Supportive care RD consult in the next 2 days for nutrition DNR DVT ppx GI ppx R IJ line Replace KCL IV abx=vanco and meropenem, Semaj Kay MD Oct 11, 2020 19:17
--- NOTE | 2020-10-11 19:20 | NUR ---
NURSE HAND-OFF REPORT: Latest Vital Signs: Temperature 98.0 , Pulse 73 , B/P 114 /75 , Respiratory Rate 33 , O2 SAT 99 , Mechanical Ventilator, O2 Flow Rate 100.0 . Vital Sign Comment: stable EKG Rhythm: Sinus Rhythm Rhythm change?: N MD Notified?: N - MD Response: Latest Carty Fall Score: 50 Fall Risk: High Risk Safety Measures: Call light Within Reach, Bed Alarm Zone 1, Side Rails Side Rails x3, Bed position Low and Locked. Fall Precautions: Yellow Socks Door Sign Patient Fall Education Report given to KIRBY Choe. Endorsed plan of care.
--- NOTE | 2020-10-11 20:00 | NUR ---
NURSE NOTES: RECEIVED REPORT FROM PHIL ORR PT OBTUNDED ORALLY INTUBATED -VENT O2 SAT98% NO ACUTE RESP DISTRESS NOTED TOLERATING TUBE FEEDING NO RESIDUAL IV INFUSING SITE DRESSING DRY AND INTACT REPOSITION AND INTACT
[2020-10-11] MEDS: Dyna-Hex 2% Top Sol 2oz TOPIC SCH (20:20)
[2020-10-12] VITALS (53 sets, daily range): BP systolic 78–124; BP diastolic 44–80
--- NOTE | 2020-10-12 04:00 | NUR ---
NURSE NOTES: complete bed bath reposition and suction back orally care done
[2020-10-12 05:10] LABS: HEMATOCRIT 31.1 % (42.0-52.0); HEMOGLOBIN 9.6 G/DL (14.2-18.0); MEAN CORPUSCULAR VOLUME 100 FL (80-99); PLATELET COUNT 56 K/UL (150-450); RED BLOOD COUNT 3.11 M/UL (4.70-6.10); RED CELL DISTRIBUTION WIDTH 20.6 % (11.6-14.8)
[2020-10-12 05:18] LABS: WHITE BLOOD COUNT 37.1 K/UL (4.8-10.8)
[2020-10-12 05:33] LABS: ALBUMIN 2.3 G/DL (3.4-5.0); ALBUMIN/GLOBULIN RATIO 0.7 (1.0-2.7); BILIRUBIN,TOTAL 0.6 MG/DL (0.2-1.0); CALCIUM 9.2 MG/DL (8.5-10.1); CREATININE 5.8 MG/DL (0.55-1.30); POTASSIUM 3.2 MMOL/L (3.5-5.1)
[2020-10-12] MEDS: Hydrocortisone 100mg Inj IV SCH ×3 (05:38→22:08)
[2020-10-12] MEDS: Metoclopramide 10mg/2ml Inj IVP SCH ×3 (05:39→17:41)
[2020-10-12 05:41] LABS: PHOSPHORUS 4.3 MG/DL (2.5-4.9)
--- NOTE | 2020-10-12 06:00 | NUR ---
NURSE NOTES: reposition and suction on levo drip at 6mcg /min
--- NOTE | 2020-10-12 06:33 | Hematology/Onc Progress Note ---
Assessment/Plan Assessment/Plan Lab Data: reviewed IMAGING: CT Head: No evidence of acute intracranial hemorrhage, mass effect or cortical edema. MRI recommended for more sensitive evaluation as clinically indicated. Atrophy and nonspecific periventricular hypoattenuation suggestive of chronic ischemic microvascular changes. Assessment And Rec's 1. Thrombocytopenia and p/w Anemia of Chronic Disease, in chart hx of anemia --> check anemia panel --> transfuse to keep HGB >7 --> cont to monitor HGB trend, stool ob --> prior imaging reviewed, showed strophic liver --> plt 52-->56 2. Leukocytosis is likely related to infection --> ABx as per id emiliana/vanc --> wbc 36-->37 --> smear is noted 3. Anemia due to chronic disease --> hgb 9 --> no hemolysis is noted --> transfuse prn 4. Anoxic Encephalopathy --> S/p recent CODE Blue and intubation --> CT head reviewed as above Covid Ag is NEGATIVE, PCR sent and pending. PUI status 5. FTT --> Supportive care pt is DNR 6. Acute hypoxemic respiratory failure --> s/p intubation on vent 7. Dvt ppx scds Greatly appreciate consult. Subjective Allergies: Coded Allergies: No Known Allergies (Unverified , 09/13/20) All Systems: reviewed and negative except above Subjective 10/11 icu, nv, is on vent, no bleeding, dw rn, labs reviewed, plt 52 10/12 icu, nv, remains on vent as well as levo, labs are reviewed, wbc 37k Objective Objective Current Medications Medications (Trade) Dose Ordered Sig/Alfredo Route PRN Reason Start Time Stop Time Status Last Admin Dose Admin Acetaminophen (Tylenol) 650 mg EVERY 6 HOURS PRN NG Temp >100.5 09/30/20 02:30 10/30/20 02:29 Chlorhexidine Gluconate (Babita-Hex 2%) 1 applic DAILY@1999 TOPIC 09/30/20 20:00 12/29/20 19:59 10/11/20 20:20 Dextrose (Dextrose 50%) 25 ml Q30M PRN IV Hypoglycemia 09/30/20 02:30 12/29/20 02:29 Dextrose (Dextrose 50%) 50 ml Q30M PRN IV Hypoglycemia 09/30/20 02:30 12/29/20 02:29 Hydrocortisone (Solu-CORTEF) 100 mg EVERY 8 HOURS IV 09/30/20 14:00 12/29/20 13:59 10/12/20 05:38 Levetiracetam 100 ml @ 400 mls/hr Q12HR IVPB 10/02/20 09:00 12/31/20 08:59 10/11/20 20:49 Meropenem 500 mg/ Sodium Chloride 55 ml @ 110 mls/hr EVERY 12 HOURS IVPB 10/11/20 10:00 10/16/20 09:59 10/11/20 20:49 Metoclopramide HCl (Reglan) 5 mg Q6H IVP 10/10/20 12:00 11/09/20 11:59 10/12/20 05:39 Norepinephrine Bitartrate 8 mg/ Dextrose 250 ml @ 0 mls/hr Q24H PRN IV DIRECTED 10/10/20 14:17 10/13/20 14:16 10/12/20 04:53 Pantoprazole (Protonix) 40 mg EVERY 12 HOURS IVP 10/07/20 21:00 11/06/20 20:59 10/11/20 20:48 [facility] 1 ea DAILY PRN MISC Per rx protocol 10/11/20 09:00 11/10/20 08:59 Last 24 Hour Vital Signs Date Time Temp Pulse Resp B/P (MAP) Pulse Ox O2 Delivery O2 Flow Rate FiO2 10/12/20 06:00 88 36 101/68 (79) 10/12/20 06:00 101/56 10/12/20 05:00 115/80 10/12/20 05:00 88 38 105/70 (82) 10/12/20 04:53 104/64 10/12/20 04:30 89 41 101/61 (74) 10/12/20 04:00 Mechanical Ventilator 10/12/20 04:00 98.5 93 30 98/62 (74) 10/12/20 04:00 96 10/12/20 04:00 115/80 10/12/20 04:00 30 10/12/20 03:30 90 14 30 10/12/20 03:30 95 32 107/77 (87) 10/12/20 03:00 122 30 110/65 (80) 96 10/12/20 03:00 115/80 10/12/20 03:00 114/50 10/12/20 02:30 100 22 115/72 (86) 96 10/12/20 02:00 133/76 10/12/20 02:00 89 27 116/75 (89) 10/12/20 01:30 84 41 112/72 (85) 10/12/20 01:00 88 46 115/61 (79) 10/12/20 01:00 115/61 10/12/20 00:30 90 45 111/66 (81) 100 10/12/20 00:00 98.5 89 34 114/77 (89) 99 10/12/20 00:00 Mechanical Ventilator 10/12/20 00:00 110/71 10/12/20 00:00 30 10/12/20 00:00 93 10/11/20 23:05 81 10 30 10/11/20 23:00 84 41 118/73 (88) 98 10/11/20 23:00 114/71 10/11/20 22:00 87 30 126/70 (88) 98 10/11/20 22:00 126/70 10/11/20 21:00 Mechanical Ventilator 10/11/20 21:00 118/71 10/11/20 21:00 88 41 118/71 (87) 99 10/11/20 20:00 117/69 10/11/20 20:00 98.0 86 38 127/75 (92) 100 10/11/20 20:00 82 10/11/20 20:00 30 10/11/20 19:30 89 15 30 10/11/20 19:00 114/75 10/11/20 18:00 73 33 100/68 (79) 99 10/11/20 18:00 100/68 10/11/20 17:30 82 30 110/78 (89) 99 10/11/20 17:00 108 28 113/74 (87) 100 10/11/20 17:00 113/74 10/11/20 16:30 130 23 126/83 (97) 98 10/11/20 16:00 30 10/11/20 16:00 98.0 88 17 113/73 (86) 98 10/11/20 16:00 113/73 10/11/20 16:00 80 10/11/20 16:00 Mechanical Ventilator 10/11/20 15:30 77 27 117/70 (86) 98 10/11/20 15:15 86 10 30 10/11/20 15:00 104/65 10/11/20 15:00 68 33 104/65 (78) 100 10/11/20 14:30 67 31 105/69 (81) 100 10/11/20 14:00 84 20 119/77 (91) 98 10/11/20 14:00 119/77 10/11/20 13:00 71 30 94/62 (73) 99 10/11/20 13:00 94/62 10/11/20 12:00 79 10/11/20 12:00 101/69 10/11/20 12:00 30 10/11/20 12:00 98.1 79 35 101/69 (80) 100 10/11/20 12:00 Mechanical Ventilator 10/11/20 11:30 80 31 100/67 (78) 100 10/11/20 11:15 74 12 30 10/11/20 11:00 81 23 104/64 (77) 99 10/11/20 11:00 104/64 10/11/20 10:30 80 30 94/62 (73) 99 10/11/20 10:00 82 31 108/72 (84) 100 10/11/20 10:00 105/63 10/11/20 09:30 65 33 93/60 (71) 100 10/11/20 09:00 93/59 10/11/20 09:00 73 28 93/59 (70) 100 10/11/20 08:30 83 28 106/68 (81) 99 10/11/20 08:00 98.1 82 25 104/66 (79) 99 10/11/20 08:00 104/66 10/11/20 08:00 89 10/11/20 08:00 30 10/11/20 08:00 Mechanical Ventilator 10/11/20 07:16 88 13 30 10/11/20 07:00 80 29 106/62 (77) 100 10/11/20 07:00 106/64 10/11/20 06:30 79 36 10/11/20 06:00 87 24 106/72 (83) 96 10/11/20 06:00 110/56 10/11/20 05:00 88 23 106/70 (82) 96 10/11/20 05:00 113/64 10/11/20 04:00 30 10/11/20 04:00 104 10/11/20 04:00 97.4 96 26 119/79 (92) 100 10/11/20 04:00 114/73 10/11/20 04:00 Mechanical Ventilator 10/11/20 03:53 102 17 30 10/11/20 03:00 91 19 99/66 (77) 97 10/11/20 03:00 114/62 10/11/20 02:00 112/69 10/11/20 02:00 89 19 123/77 (92) 98 10/11/20 01:45 92 16 105/71 (82) 98 10/11/20 01:30 89 17 107/67 (80) 98 10/11/20 01:15 81 15 100/62 (75) 98 10/11/20 01:00 87 15 107/65 (79) 98 10/11/20 01:00 107/67 10/11/20 01:00 87 15 107/65 (79) 98 10/11/20 00:45 79 18 104/64 (77) 98 10/11/20 00:30 86 17 111/82 (92) 98 10/11/20 00:15 87 17 107/64 (78) 98 10/11/20 00:00 81 17 108/66 (80) 98 10/11/20 00:00 81 17 108/66 (80) 98 10/11/20 00:00 107/64 10/11/20 00:00 30 10/11/20 00:00 Mechanical Ventilator 10/10/20 23:00 69 17 104/66 (79) 98 10/10/20 23:00 104/66 10/10/20 22:20 89 15 30 10/10/20 22:00 88 16 118/72 (87) 98 10/10/20 22:00 104/66 10/10/20 21:00 83 18 108/70 (83) 99 10/10/20 21:00 111/66 10/10/20 20:00 30 10/10/20 20:00 81 10/10/20 20:00 Mechanical Ventilator 10/10/20 20:00 97.8 72 31 100/63 (75) 100 10/10/20 20:00 104/56 10/10/20 19:18 74 14 30 10/10/20 19:00 69 31 94/60 (71) 99 10/10/20 19:00 94/60 10/10/20 18:00 105/68 10/10/20 18:00 92 23 105/68 (80) 97 10/10/20 17:00 133/79 10/10/20 17:00 107 28 113/74 (87) 97 10/10/20 16:35 91 15 30 10/10/20 16:15 116/67 10/10/20 16:00 30 10/10/20 16:00 115/72 10/10/20 16:00 88 10/10/20 16:00 Mechanical Ventilator 10/10/20 16:00 97.6 88 22 116/67 (83) 98 10/10/20 15:18 74 12 30 10/10/20 15:00 111/70 10/10/20 15:00 78 27 116/76 (89) 99 10/10/20 14:00 68 26 99/68 (78) 100 10/10/20 14:00 99/68 10/10/20 13:28 70 13 30 10/10/20 13:00 83 21 105/61 (76) 99 10/10/20 13:00 108/68 10/10/20 12:00 97.7 66 30 103/67 (79) 99 10/10/20 12:00 105/62 10/10/20 12:00 30 10/10/20 12:00 Mechanical Ventilator 10/10/20 11:21 61 10/10/20 11:00 115/74 10/10/20 11:00 76 21 115/74 (88) 99 10/10/20 10:54 71 19 30 10/10/20 10:52 84 20 30 10/10/20 10:48 89 16 30 10/10/20 10:00 103/64 10/10/20 10:00 70 24 105/78 (87) 100 10/10/20 09:00 88/62 10/10/20 09:00 67 22 109/64 (79) 100 10/10/20 08:43 70 13 30 10/10/20 08:20 94/60 10/10/20 08:15 70/54 3/7/21 08:00 Mechanical Ventilator 10/10/20 08:00 97.5 10/10/20 08:00 65 10/10/20 08:00 111/68 10/10/20 08:00 30 10/10/20 08:00 74 22 111/68 (82) 100 10/10/20 07:25 66 12 30 10/10/20 07:00 69 10 106/64 (78) 99 10/10/20 07:00 106/64 Intake and Output 10/11/20 10/12/20 19:00 07:00 Intake Total 760 ml 875.35 ml Output Total 25 ml 10 ml Balance 735 ml 865.35 ml Free Water 140 ml IV Total 320 ml 295.35 ml Tube Feeding 440 ml 440 ml Output Urine Total 25 ml 10 ml Labs Test 10/09/20 11:25 10/10/20 07:15 10/10/20 17:10 10/11/20 04:54 Arterial Blood pH 7.380 (7.350-7.450) Arterial Blood Partial Pressure CO2 35.6 mmHg (35.0-45.0) Arterial Blood Partial Pressure O2 298.0 mmHg (75.0-100.0) Arterial Blood HCO3 20.6 mmol/L (22.0-26.0) Arterial Blood Oxygen Saturation 98.9 % (95-100) Arterial Blood Base Excess -4.0 (-2-2) Onesimo Test Positive White Blood Count 30.6 K/UL (4.8-10.8) 35.7 K/UL (4.8-10.8) Red Blood Count 3.24 M/UL (4.70-6.10) 3.04 M/UL (4.70-6.10) Hemoglobin 9.7 G/DL (14.2-18.0) 9.3 G/DL (14.2-18.0) Hematocrit 32.0 % (42.0-52.0) 30.0 % (42.0-52.0) Mean Corpuscular Volume 99 FL (80-99) 99 FL (80-99) Mean Corpuscular Hemoglobin 30.0 PG (27.0-31.0) 30.5 PG (27.0-31.0) Mean Corpuscular Hemoglobin Concent 30.3 G/DL (32.0-36.0) 31.0 G/DL (32.0-36.0) Red Cell Distribution Width 20.3 % (11.6-14.8) 20.4 % (11.6-14.8) Platelet Count 45 K/UL (150-450) 52 K/UL (150-450) Mean Platelet Volume 11.0 FL (6.5-10.1) 10.7 FL (6.5-10.1) Neutrophils (%) (Auto) % (45.0-75.0) % (45.0-75.0) Lymphocytes (%) (Auto) % (20.0-45.0) % (20.0-45.0) Monocytes (%) (Auto) % (1.0-10.0) % (1.0-10.0) Eosinophils (%) (Auto) % (0.0-3.0) % (0.0-3.0) Basophils (%) (Auto) % (0.0-2.0) % (0.0-2.0) Differential Total Cells Counted 100 100 Neutrophils % (Manual) 87 % (45-75) 95 % (45-75) Lymphocytes % (Manual) 6 % (20-45) 2 % (20-45) Monocytes % (Manual) 7 % (1-10) 3 % (1-10) Eosinophils % (Manual) 0 % (0-3) 0 % (0-3) Basophils % (Manual) 0 % (0-2) 0 % (0-2) Band Neutrophils 0 % (0-8) 0 % (0-8) Platelet Estimate Decreased Decreased Platelet Morphology Normal Normal Hypochromasia 1+ 1+ Anisocytosis 2+ 1+ Sodium Level 143 MMOL/L (136-145) 141 MMOL/L (136-145) Potassium Level 3.4 MMOL/L (3.5-5.1) 3.0 MMOL/L (3.5-5.1) Chloride Level 107 MMOL/L (98-107) 105 MMOL/L (98-107) Carbon Dioxide Level 24 MMOL/L (21-32) 24 MMOL/L (21-32) Anion Gap 12 mmol/L (5-15) 13 mmol/L (5-15) Blood Urea Nitrogen 36 mg/dL (7-18) 43 mg/dL (7-18) Creatinine 4.6 MG/DL (0.55-1.30) 5.1 MG/DL (0.55-1.30) Estimat Glomerular Filtration Rate 15.2 mL/min (>60) 13.5 mL/min (>60) Glucose Level 205 MG/DL (74-106) 234 MG/DL (74-106) Calcium Level 8.9 MG/DL (8.5-10.1) 8.9 MG/DL (8.5-10.1) Phosphorus Level 3.3 MG/DL (2.5-4.9) 3.7 MG/DL (2.5-4.9) Magnesium Level 1.9 MG/DL (1.8-2.4) 2.0 MG/DL (1.8-2.4) Total Bilirubin 0.8 MG/DL (0.2-1.0) 0.7 MG/DL (0.2-1.0) Aspartate Amino Transf (AST/SGOT) 50 U/L (15-37) 40 U/L (15-37) Alanine Aminotransferase (ALT/SGPT) 61 U/L (12-78) 63 U/L (12-78) Alkaline Phosphatase 125 U/L (46-116) 155 U/L (46-116) C-Reactive Protein, Quantitative < 0.4 mg/dL (0.00-0.90) < 0.4 mg/dL (0.00-0.90) Pro-B-Type Natriuretic Peptide 8027 pg/mL (0-125) 85851 pg/mL (0-125) Total Protein 5.6 G/DL (6.4-8.2) 5.4 G/DL (6.4-8.2) Albumin 2.4 G/DL (3.4-5.0) 2.3 G/DL (3.4-5.0) Globulin 3.2 g/dL 3.1 g/dL Albumin/Globulin Ratio 0.8 (1.0-2.7) 0.7 (1.0-2.7) Iron Level 51 ug/dL (50-175) Total Iron Binding Capacity 147 ug/dL (250-450) Percent Iron Saturation 35 % (15-50) Unsaturated Iron Binding 96 ug/dL (112-346) Macrocytosis 1+ Schistocytes 1+ Prothrombin Time 15.7 SEC (9.30-11.50) Prothromb Time International Ratio 1.5 (0.9-1.1) Ammonia 19 umol/L (11-32) Test 10/11/20 16:15 10/12/20 04:00 Activated Partial Thromboplast Time 34 SEC (23-33) White Blood Count 37.1 K/UL (4.8-10.8) Red Blood Count 3.11 M/UL (4.70-6.10) Hemoglobin 9.6 G/DL (14.2-18.0) Hematocrit 31.1 % (42.0-52.0) Mean Corpuscular Volume 100 FL (80-99) Mean Corpuscular Hemoglobin 30.7 PG (27.0-31.0) Mean Corpuscular Hemoglobin Concent 30.8 G/DL (32.0-36.0) Red Cell Distribution Width 20.6 % (11.6-14.8) Platelet Count 56 K/UL (150-450) Mean Platelet Volume 11.8 FL (6.5-10.1) Neutrophils (%) (Auto) % (45.0-75.0) Lymphocytes (%) (Auto) % (20.0-45.0) Monocytes (%) (Auto) % (1.0-10.0) Eosinophils (%) (Auto) % (0.0-3.0) Basophils (%) (Auto) % (0.0-2.0) Sodium Level 140 MMOL/L (136-145) Potassium Level 3.2 MMOL/L (3.5-5.1) Chloride Level 105 MMOL/L (98-107) Carbon Dioxide Level 21 MMOL/L (21-32) Anion Gap 14 mmol/L (5-15) Blood Urea Nitrogen 50 mg/dL (7-18) Creatinine 5.8 MG/DL (0.55-1.30) Estimat Glomerular Filtration Rate 11.5 mL/min (>60) Glucose Level 251 MG/DL (74-106) Calcium Level 9.2 MG/DL (8.5-10.1) Phosphorus Level 4.3 MG/DL (2.5-4.9) Magnesium Level 2.1 MG/DL (1.8-2.4) Total Bilirubin 0.6 MG/DL (0.2-1.0) Aspartate Amino Transf (AST/SGOT) 43 U/L (15-37) Alanine Aminotransferase (ALT/SGPT) 66 U/L (12-78) Alkaline Phosphatase 230 U/L (46-116) C-Reactive Protein, Quantitative < 0.4 mg/dL (0.00-0.90) Pro-B-Type Natriuretic Peptide 20642 pg/mL (0-125) Total Protein 5.4 G/DL (6.4-8.2) Albumin 2.3 G/DL (3.4-5.0) Globulin 3.1 g/dL Albumin/Globulin Ratio 0.7 (1.0-2.7) Height (Feet): 6 Height (Inches): 8.00 Weight (Pounds): 165 Objective Physical Exam: pt is camotose. Sedated HEENT: NC/AT. EOMI. Cardiovascular: Irregularly irregular rhythm. Resp: intubated on vent ++ Abdomen: Abdomen is soft, nondistended. Nd Skin: Intact. MSK: obtunded Neuro: limited exam Bert Ponce MD Oct 12, 2020 06:33
--- NOTE | 2020-10-12 07:20 | NUR ---
NURSE NOTES: Received report from KIRBY Choe. Patient is obtunded, opens eyes to pain, not tracking. ETT 7.5/24cm at lip line with vent setting ac 8, tv 500, fio2 30%, PEEP 5. Rt nare NGT intact; Nepro @ 40mL/hr currently held before scheduled paracentesis. Right IJ TLC intact and running Levophed 6mcg/min. Lt IJ dialysis catheter with pigtail noted, dressing clean, dry, and intact. Generalized edema noted. Pt on a P200 mattress. Bed locked and in lowest position, with call light within reach. Bed side rials padded for seizure precautions. Will continue plan of care.
--- NOTE | 2020-10-12 07:21 | NUR ---
NURSE HAND-OFF REPORT: Latest Vital Signs: Temperature 98.5 , Pulse 78 , B/P 101 /51 , Respiratory Rate 33 , O2 SAT 96 , Mechanical Ventilator, O2 Flow Rate 100.0 . Vital Sign Comment: EKG Rhythm: Sinus Rhythm Rhythm change?: N MD Notified?: N - MD Response: Latest Carty Fall Score: 50 Fall Risk: High Risk Safety Measures: Call light Within Reach, Bed Alarm Zone 1, Side Rails Side Rails x3, Bed position Low and Locked. Fall Precautions: Yellow Socks Door Sign Patient Fall Education Report given to greta clement using sbar
[2020-10-12] MEDS: Pantoprazole Inj IVP SCH ×2 (08:02→21:06)
[2020-10-12] MEDS: levETIRAcetam 500mg/NS100ml 100 ML IVPB SCH (08:03)
[2020-10-12] MEDS: Meropenem 500 MG in NS 55 ML IVPB SCH ×2 (08:03→21:08)
--- NOTE | 2020-10-12 08:14 | Infectious Diseases Prog Note ---
Assessment/Plan 75 yo male with PMHx of failure to thrive, HTN, thalassemia, pancytopenia, HLD, Depression who was sent to the ED from his [facility] for AMS. Septic Shock PNA Acute hypoxic resp failure sp VDRF -10/04 sp Cx - K. Pnaumo -10/01 sp cx S. aureus (MSSA), K. pna (r amp; otherwise S) -09/30 COVID PCr neg -09/30 CXR: Bibasilar atelectasis versus infiltrates CXR 09/29/20 - Left basilar atelectasis. No acute process otherwise. Evidence of old granulomatous disease rapid covid ag neg , PCR : neg S. epi bacteremia- contaminant vs real -10/03 Bcx NGTD -09/29 BCx 09/07 sets S. epi Leukocytosis; increased ( on steroids) No fever -09/30 ucx neg AMS -CT head: New NG tube and mid to distal esophagus. Recommend advancement. Bibasilar atelectasis versus infiltrates Lactic acidosis Failure to thrive HTN Thalassemia Pancytopenia HLD Depression Adenomatous colonic polyps PLAN Start Meropenem #2 and Vancomycin #2 f/u cultures f/u C. diff Repeat CXR - 10/10/20 SP Ceftriaxone # 5 for K. pneumo PNA - 10/06/20 SP Zosyn #7/ - 10/03/20 SP Vancomycin #3 - Monitor CBC and Temps - BCx (periheral and line) - 2d echo Thank you for this consult. [facility] will continue to follow Mr. Vargas while he in hospitalized. Subjective Allergies: Coded Allergies: No Known Allergies (Unverified , 09/13/20) Afebrile WBCs increased to 37 On Vent 30% O2 On Levophed Diarrhea Objective Last 24 Hour Vital Signs Date Time Temp Pulse Resp B/P (MAP) Pulse Ox O2 Delivery O2 Flow Rate FiO2 10/12/20 08:00 30 10/12/20 08:00 97.4 87 33 104/67 (79) 100 10/12/20 08:00 Mechanical Ventilator 10/12/20 07:30 77 35 89/56 (67) 100 10/12/20 07:00 101/51 10/12/20 07:00 78 33 94/62 (73) 10/12/20 06:30 76 36 10/12/20 06:30 86 33 101/66 (78) 10/12/20 06:00 88 36 101/68 (79) 10/12/20 06:00 101/56 10/12/20 05:00 115/80 10/12/20 05:00 88 38 105/70 (82) 10/12/20 04:53 104/64 10/12/20 04:30 89 41 101/61 (74) 10/12/20 04:00 Mechanical Ventilator 10/12/20 04:00 98.5 93 30 98/62 (74) 10/12/20 04:00 96 10/12/20 04:00 115/80 10/12/20 04:00 30 10/12/20 03:30 90 14 30 10/12/20 03:30 95 32 107/77 (87) 10/12/20 03:00 122 30 110/65 (80) 96 10/12/20 03:00 115/80 10/12/20 03:00 114/50 10/12/20 02:30 100 22 115/72 (86) 96 10/12/20 02:00 133/76 10/12/20 02:00 89 27 116/75 (89) 10/12/20 01:30 84 41 112/72 (85) 10/12/20 01:00 88 46 115/61 (79) 10/12/20 01:00 115/61 10/12/20 00:30 90 45 111/66 (81) 100 10/12/20 00:00 98.5 89 34 114/77 (89) 99 10/12/20 00:00 Mechanical Ventilator 10/12/20 00:00 110/71 10/12/20 00:00 30 10/12/20 00:00 93 10/11/20 23:05 81 10 30 10/11/20 23:00 84 41 118/73 (88) 98 10/11/20 23:00 114/71 10/11/20 22:00 87 30 126/70 (88) 98 10/11/20 22:00 126/70 10/11/20 21:00 Mechanical Ventilator 10/11/20 21:00 118/71 10/11/20 21:00 88 41 118/71 (87) 99 10/11/20 20:00 117/69 10/11/20 20:00 98.0 86 38 127/75 (92) 100 10/11/20 20:00 82 10/11/20 20:00 30 10/11/20 19:30 89 15 30 10/11/20 19:00 114/75 10/11/20 18:00 73 33 100/68 (79) 99 10/11/20 18:00 100/68 10/11/20 17:30 82 30 110/78 (89) 99 10/11/20 17:00 108 28 113/74 (87) 100 10/11/20 17:00 113/74 10/11/20 16:30 130 23 126/83 (97) 98 10/11/20 16:00 30 10/11/20 16:00 98.0 88 17 113/73 (86) 98 10/11/20 16:00 113/73 10/11/20 16:00 80 10/11/20 16:00 Mechanical Ventilator 10/11/20 15:30 77 27 117/70 (86) 98 10/11/20 15:15 86 10 30 10/11/20 15:00 104/65 10/11/20 15:00 68 33 104/65 (78) 100 10/11/20 14:30 67 31 105/69 (81) 100 10/11/20 14:00 84 20 119/77 (91) 98 10/11/20 14:00 119/77 10/11/20 13:00 71 30 94/62 (73) 99 10/11/20 13:00 94/62 10/11/20 12:00 79 10/11/20 12:00 101/69 10/11/20 12:00 30 10/11/20 12:00 98.1 79 35 101/69 (80) 100 10/11/20 12:00 Mechanical Ventilator 10/11/20 11:30 80 31 100/67 (78) 100 10/11/20 11:15 74 12 30 10/11/20 11:00 81 23 104/64 (77) 99 10/11/20 11:00 104/64 10/11/20 10:30 80 30 94/62 (73) 99 10/11/20 10:00 82 31 108/72 (84) 100 10/11/20 10:00 105/63 10/11/20 09:30 65 33 93/60 (71) 100 10/11/20 09:00 93/59 10/11/20 09:00 73 28 93/59 (70) 100 10/11/20 08:30 83 28 106/68 (81) 99 Height (Feet): 6 Height (Inches): 8.00 Weight (Pounds): 165 Gen: Intubated on Vent 30% O2 HEENT: NCAT, MMM, No scleral icterus Pulm: RRR No accessory muscle use Abd: Soft, ND, + BS SKIN: Exposed skin normal in color no rash noted Microbiology Date/Time Source Procedure Growth Status 10/09/20 17:30 Urine,Clean Catch Urine Culture - Preliminary Yeast Species Resulted 10/09/20 17:30 Sputum Expectorated Gram Stain - Final Resulted 10/09/20 17:30 Sputum Culture - Preliminary Gram Negative Bacillus 1 YEAST Resulted Laboratory Tests Test 10/11/20 16:15 10/12/20 04:00 Activated Partial Thromboplast Time 34 SEC (23-33) H White Blood Count 37.1 K/UL (4.8-10.8) *H Red Blood Count 3.11 M/UL (4.70-6.10) L Hemoglobin 9.6 G/DL (14.2-18.0) L Hematocrit 31.1 % (42.0-52.0) L Mean Corpuscular Volume 100 FL (80-99) H Mean Corpuscular Hemoglobin 30.7 PG (27.0-31.0) Mean Corpuscular Hemoglobin Concent 30.8 G/DL (32.0-36.0) L Red Cell Distribution Width 20.6 % (11.6-14.8) H Platelet Count 56 K/UL (150-450) L Mean Platelet Volume 11.8 FL (6.5-10.1) H Neutrophils (%) (Auto) % (45.0-75.0) Lymphocytes (%) (Auto) % (20.0-45.0) Monocytes (%) (Auto) % (1.0-10.0) Eosinophils (%) (Auto) % (0.0-3.0) Basophils (%) (Auto) % (0.0-2.0) Neutrophils % (Manual) Pending Lymphocytes % (Manual) Pending Platelet Estimate Pending Platelet Morphology Pending Sodium Level 140 MMOL/L (136-145) Potassium Level 3.2 MMOL/L (3.5-5.1) L Chloride Level 105 MMOL/L (98-107) Carbon Dioxide Level 21 MMOL/L (21-32) Anion Gap 14 mmol/L (5-15) Blood Urea Nitrogen 50 mg/dL (7-18) H Creatinine 5.8 MG/DL (0.55-1.30) H Estimat Glomerular Filtration Rate 11.5 mL/min (>60) Glucose Level 251 MG/DL (74-106) H Calcium Level 9.2 MG/DL (8.5-10.1) Phosphorus Level 4.3 MG/DL (2.5-4.9) Magnesium Level 2.1 MG/DL (1.8-2.4) Total Bilirubin 0.6 MG/DL (0.2-1.0) Aspartate Amino Transf (AST/SGOT) 43 U/L (15-37) H Alanine Aminotransferase (ALT/SGPT) 66 U/L (12-78) Alkaline Phosphatase 230 U/L (46-116) H C-Reactive Protein, Quantitative < 0.4 mg/dL (0.00-0.90) Pro-B-Type Natriuretic Peptide 03850 pg/mL (0-125) H Total Protein 5.4 G/DL (6.4-8.2) L Albumin 2.3 G/DL (3.4-5.0) L Globulin 3.1 g/dL Albumin/Globulin Ratio 0.7 (1.0-2.7) L Current Medications Medications (Trade) Dose Ordered Sig/Alfredo Route PRN Reason Start Time Stop Time Status Last Admin Dose Admin Acetaminophen (Tylenol) 650 mg EVERY 6 HOURS PRN NG Temp >100.5 09/30/20 02:30 10/30/20 02:29 Chlorhexidine Gluconate (Babita-Hex 2%) 1 applic DAILY@2000 TOPIC 09/30/20 20:00 12/29/20 19:59 10/11/20 20:20 Dextrose (Dextrose 50%) 25 ml Q30M PRN IV Hypoglycemia 09/30/20 02:30 12/29/20 02:29 Dextrose (Dextrose 50%) 50 ml Q30M PRN IV Hypoglycemia 09/30/20 02:30 12/29/20 02:29 Hydrocortisone (Solu-CORTEF) 100 mg EVERY 8 HOURS IV 09/30/20 14:00 12/29/20 13:59 10/12/20 05:38 Levetiracetam 100 ml @ 400 mls/hr Q12HR IVPB 10/02/20 09:00 12/31/20 08:59 10/12/20 08:03 Meropenem 500 mg/ Sodium Chloride 55 ml @ 110 mls/hr EVERY 12 HOURS IVPB 10/11/20 10:00 10/16/20 09:59 10/12/20 08:03 Metoclopramide HCl (Reglan) 5 mg Q6H IVP 10/10/20 12:00 11/09/20 11:59 10/12/20 05:39 Norepinephrine Bitartrate 8 mg/ Dextrose 250 ml @ 0 mls/hr Q24H PRN IV DIRECTED 10/10/20 14:17 10/13/20 14:16 10/12/20 04:53 Pantoprazole (Protonix) 40 mg EVERY 12 HOURS IVP 10/07/20 21:00 11/06/20 20:59 10/12/20 08:02 Vancomycin HCl ([facility] pharmacy to dose) 1 ea DAILY PRN MISC Per rx protocol 10/11/20 09:00 11/10/20 08:59 Yoel Ricketts MD Oct 12, 2020 08:14
--- NOTE | 2020-10-12 08:43 | NUR ---
NURSE NOTES: Dr Whitehead on the unit making his rounds. Updated him on pt's current condition.
--- NOTE | 2020-10-12 08:44 | Nephrology Progress Note ---
Assessment/Plan Problem List: (1) COURTNEY (acute kidney injury) (2) Cardiopulmonary arrest (3) Respiratory failure (4) Septic shock Assessment Acute renal failure Septic shock Acute respiratory failure CODE STATUS now DNR Plan October 12: Labs reviewed. Discussed with KIRBY Tarango. Leukocytosis persists. Due for dialysis today. Patient DNR however remains intubated on ventilator. FiO2 30%. Continue per consultants. Continue dialysis as needed. October 11: Labs reviewed. Discussed with KIRBY Tarango. Leukocytosis persists. Low potassium addressed. Will order dialysis tomorrow. Continue per consultants. October 10: Patient was dialyzed yesterday. Today's labs reviewed. Abnormal electrolytes addressed. Medication list reviewed. Discussed with RN. Continue per consultants. October 09: Patient due for dialysis today. IV fluids stopped. Patient DNR. Abnormal electrolyte and the dialysis bath adjusted accordingly. Continue per consultants. October 08: Patient was last dialyzed yesterday. Intubated. DNR. Meds and labs reviewed. Potassium supplement given. Continue to monitor renal parameters and dialysis as needed. Patient remains only coanuric. October 07: Patient was dialyzed yesterday. Labs reviewed. Platelets low. Oozing from the site of the dialysis catheter. On low-dose of pressors. Will dialyze today. Will change Pepcid to Protonix IV. Will give DDAVP 50 mcg once. Discussed with KIRBY Tarango. October 06: Status unchanged. Seen in ICU. Discussed with RN. Dialysis catheter and dialysis procedure has not yet been done. Radiology to arrange for catheter insertion today followed by dialysis. Labs reviewed. Medication list reviewed. October 05: Status quo. Labs reviewed. Serum creatinine creeping up. Patient hemodynamically more stable today than a few days ago. Called brother and he is agreeable for a trial of dialysis treatment with the hope to reverse the acute component of the renal failure. Nontunneled catheter placement ordered. Dialysis ordered. Continue to monitor renal parameters. Medication list reviewed. Discussed with RN and charge nurse. October 04: Status quo. Intubated on ventilator. Labs reviewed. Serum creatinine is plateauing. Trial of Zaroxolyn and 25% albumin infusion given. Abnormal electrolytes addressed. Continue as is. October 03: Continues to be on 6 mics of Levophed. Urine output 350 cc past 24 hours. No urine output since this morning. Labs reviewed. Discussed with KIRBY Diallo. Albumin bolus given. Zaroxolyn 1 dose ordered. Serum creatinine appears to be leveling off. Continue to monitor renal parameters. Patient DNR. October 02: Remains on low-dose pressors today almost anuric. Discussed with KIRBY Shook. Labs reviewed. Medication list reviewed. Trial of albumin and Lasix. Continue to monitor renal parameters. Patient DNR. FiO2 40% October 01: Patient clinically more stable. Discussed with KIRBY Tarango. Patient off pressors. ABG improved. Serum creatinine worse. Will start the patient on Bicitra and allopurinol through NG tube. Continue to monitor renal parameters. Per orders. Patient currently DNR. Previously: Pulmonary support Pressors Antibiotics Hydrocortisone Per orders Subjective ROS Limited/Unobtainable: Yes Objective Objective Last 24 Hour Vital Signs Date Time Temp Pulse Resp B/P (MAP) Pulse Ox O2 Delivery O2 Flow Rate FiO2 10/12/20 08:00 30 10/12/20 08:00 97.4 87 33 104/67 (79) 100 10/12/20 08:00 Mechanical Ventilator 10/12/20 07:30 77 35 89/56 (67) 100 10/12/20 07:26 76 13 30 10/12/20 07:00 101/51 10/12/20 07:00 78 33 94/62 (73) 10/12/20 06:30 76 36 10/12/20 06:30 86 33 101/66 (78) 10/12/20 06:00 88 36 101/68 (79) 10/12/20 06:00 101/56 10/12/20 05:00 115/80 10/12/20 05:00 88 38 105/70 (82) 10/12/20 04:53 104/64 10/12/20 04:30 89 41 101/61 (74) 10/12/20 04:00 Mechanical Ventilator 10/12/20 04:00 98.5 93 30 98/62 (74) 10/12/20 04:00 96 10/12/20 04:00 115/80 10/12/20 04:00 30 10/12/20 03:30 90 14 30 10/12/20 03:30 95 32 107/77 (87) 10/12/20 03:00 122 30 110/65 (80) 96 10/12/20 03:00 115/80 10/12/20 03:00 114/50 10/12/20 02:30 100 22 115/72 (86) 96 10/12/20 02:00 133/76 10/12/20 02:00 89 27 116/75 (89) 10/12/20 01:30 84 41 112/72 (85) 10/12/20 01:00 88 46 115/61 (79) 10/12/20 01:00 115/61 10/12/20 00:30 90 45 111/66 (81) 100 10/12/20 00:00 98.5 89 34 114/77 (89) 99 10/12/20 00:00 Mechanical Ventilator 10/12/20 00:00 110/71 10/12/20 00:00 30 10/12/20 00:00 93 10/11/20 23:05 81 10 30 10/11/20 23:00 84 41 118/73 (88) 98 10/11/20 23:00 114/71 10/11/20 22:00 87 30 126/70 (88) 98 10/11/20 22:00 126/70 10/11/20 21:00 Mechanical Ventilator 10/11/20 21:00 118/71 10/11/20 21:00 88 41 118/71 (87) 99 10/11/20 20:00 117/69 10/11/20 20:00 98.0 86 38 127/75 (92) 100 10/11/20 20:00 82 10/11/20 20:00 30 10/11/20 19:30 89 15 30 10/11/20 19:00 114/75 10/11/20 18:00 73 33 100/68 (79) 99 10/11/20 18:00 100/68 10/11/20 17:30 82 30 110/78 (89) 99 10/11/20 17:00 108 28 113/74 (87) 100 10/11/20 17:00 113/74 10/11/20 16:30 130 23 126/83 (97) 98 10/11/20 16:00 30 10/11/20 16:00 98.0 88 17 113/73 (86) 98 10/11/20 16:00 113/73 10/11/20 16:00 80 10/11/20 16:00 Mechanical Ventilator 10/11/20 15:30 77 27 117/70 (86) 98 10/11/20 15:15 86 10 30 10/11/20 15:00 104/65 10/11/20 15:00 68 33 104/65 (78) 100 10/11/20 14:30 67 31 105/69 (81) 100 10/11/20 14:00 84 20 119/77 (91) 98 10/11/20 14:00 119/77 10/11/20 13:00 71 30 94/62 (73) 99 10/11/20 13:00 94/62 10/11/20 12:00 79 10/11/20 12:00 101/69 10/11/20 12:00 30 10/11/20 12:00 98.1 79 35 101/69 (80) 100 10/11/20 12:00 Mechanical Ventilator 10/11/20 11:30 80 31 100/67 (78) 100 10/11/20 11:15 74 12 30 10/11/20 11:00 81 23 104/64 (77) 99 10/11/20 11:00 104/64 10/11/20 10:30 80 30 94/62 (73) 99 10/11/20 10:00 82 31 108/72 (84) 100 10/11/20 10:00 105/63 10/11/20 09:30 65 33 93/60 (71) 100 10/11/20 09:00 93/59 10/11/20 09:00 73 28 93/59 (70) 100 Intake and Output 10/11/20 10/12/20 19:00 07:00 Intake Total 760 ml 926.95 ml Output Total 25 ml 10 ml Balance 735 ml 916.95 ml Free Water 140 ml IV Total 320 ml 306.95 ml Tube Feeding 440 ml 480 ml Output Urine Total 25 ml 10 ml # Bowel Movements 50 Current Medications Medications (Trade) Dose Ordered Sig/Alfredo Route PRN Reason Start Time Stop Time Status Last Admin Dose Admin Acetaminophen (Tylenol) 650 mg EVERY 6 HOURS PRN NG Temp >100.5 09/30/20 02:30 10/30/20 02:29 Chlorhexidine Gluconate (Babita-Hex 2%) 1 applic DAILY@2000 TOPIC 09/30/20 20:00 12/29/20 19:59 10/11/20 20:20 Dextrose (Dextrose 50%) 25 ml Q30M PRN IV Hypoglycemia 09/30/20 02:30 12/29/20 02:29 Dextrose (Dextrose 50%) 50 ml Q30M PRN IV Hypoglycemia 09/30/20 02:30 12/29/20 02:29 Hydrocortisone (Solu-CORTEF) 100 mg EVERY 8 HOURS IV 09/30/20 14:00 12/29/20 13:59 10/12/20 05:38 Levetiracetam 100 ml @ 400 mls/hr Q12HR IVPB 10/02/20 09:00 12/31/20 08:59 10/12/20 08:03 Meropenem 500 mg/ Sodium Chloride 55 ml @ 110 mls/hr EVERY 12 HOURS IVPB 10/11/20 10:00 10/16/20 09:59 10/12/20 08:03 Metoclopramide HCl (Reglan) 5 mg Q6H IVP 10/10/20 12:00 11/09/20 11:59 10/12/20 05:39 Norepinephrine Bitartrate 8 mg/ Dextrose 250 ml @ 0 mls/hr Q24H PRN IV DIRECTED 10/10/20 14:17 10/13/20 14:16 10/12/20 04:53 Pantoprazole (Protonix) 40 mg EVERY 12 HOURS IVP 10/07/20 21:00 11/06/20 20:59 10/12/20 08:02 Vancomycin HCl ([facility] pharmacy to dose) 1 ea DAILY PRN MISC Per rx protocol 10/11/20 09:00 11/10/20 08:59 Laboratory Tests 10/11/20 16:15: Activated Partial Thromboplast Time 34H 10/12/20 04:00: White Blood Count 37.1*H, Red Blood Count 3.11L, Hemoglobin 9.6L, Hematocrit 31.1L, Mean Corpuscular Volume 100H, Mean Corpuscular Hemoglobin 30.7, Mean Corpuscular Hemoglobin Concent 30.8L, Red Cell Distribution Width 20.6H, Platelet Count 56L, Mean Platelet Volume 11.8H, Neutrophils (%) (Auto) , Lymphocytes (%) (Auto) , Monocytes (%) (Auto) , Eosinophils (%) (Auto) , Basophils (%) (Auto) , Differential Total Cells Counted 100, Neutrophils % (Manual) 94H, Lymphocytes % (Manual) 2L, Monocytes % (Manual) 4, Eosinophils % (Manual) 0, Basophils % (Manual) 0, Band Neutrophils 0, Platelet Estimate DecreasedL, Platelet Morphology Normal, Hypochromasia 1+, Anisocytosis 2+, Macrocytosis 1+, Schistocytes 1+, Sodium Level 140, Potassium Level 3.2L, Chloride Level 105, Carbon Dioxide Level 21, Anion Gap 14, Blood Urea Nitrogen 50H, Creatinine 5.8H, Estimat Glomerular Filtration Rate 11.5, Glucose Level 251H, Calcium Level 9.2, Phosphorus Level 4.3, Magnesium Level 2.1, Total Bilirubin 0.6, Aspartate Amino Transf (AST/SGOT) 43H, Alanine Aminotransferase (ALT/SGPT) 66, Alkaline Phosphatase 230H, C-Reactive Protein, Quantitative < 0.4, Pro-B-Type Natriuretic Peptide 83221M, Total Protein 5.4L, Albumin 2.3L, Globulin 3.1, Albumin/Globulin Ratio 0.7L Height (Feet): 6 Height (Inches): 8.00 Weight (Pounds): 165 General Appearance: no apparent distress EENT: other - Intubated on ventilator FiO2 30% Cardiovascular: normal rate Respiratory/Chest: decreased breath sounds Abdomen: distended Angel Whitehead MD Oct 12, 2020 08:44
--- NOTE | 2020-10-12 10:14 | Neurology Progress Note ---
Interim History Interim History ROS Limited/Unobtainable: Yes Events: remains the same Objective Physical Exam Last Vital Signs Date Time Temp Pulse Resp B/P (MAP) Pulse Ox O2 Delivery O2 Flow Rate FiO2 10/12/20 09:00 85 29 105/66 (79) 99 10/12/20 08:00 30 10/12/20 08:00 97.4 10/12/20 08:00 Mechanical Ventilator Laboratory Tests Test 10/11/20 16:15 10/12/20 04:00 Activated Partial Thromboplast Time 34 SEC (23-33) H White Blood Count 37.1 K/UL (4.8-10.8) *H Red Blood Count 3.11 M/UL (4.70-6.10) L Hemoglobin 9.6 G/DL (14.2-18.0) L Hematocrit 31.1 % (42.0-52.0) L Mean Corpuscular Volume 100 FL (80-99) H Mean Corpuscular Hemoglobin 30.7 PG (27.0-31.0) Mean Corpuscular Hemoglobin Concent 30.8 G/DL (32.0-36.0) L Red Cell Distribution Width 20.6 % (11.6-14.8) H Platelet Count 56 K/UL (150-450) L Mean Platelet Volume 11.8 FL (6.5-10.1) H Neutrophils (%) (Auto) % (45.0-75.0) Lymphocytes (%) (Auto) % (20.0-45.0) Monocytes (%) (Auto) % (1.0-10.0) Eosinophils (%) (Auto) % (0.0-3.0) Basophils (%) (Auto) % (0.0-2.0) Differential Total Cells Counted 100 Neutrophils % (Manual) 94 % (45-75) H Lymphocytes % (Manual) 2 % (20-45) L Monocytes % (Manual) 4 % (1-10) Eosinophils % (Manual) 0 % (0-3) Basophils % (Manual) 0 % (0-2) Band Neutrophils 0 % (0-8) Platelet Estimate Decreased L Platelet Morphology Normal Hypochromasia 1+ Anisocytosis 2+ Macrocytosis 1+ Schistocytes 1+ Sodium Level 140 MMOL/L (136-145) Potassium Level 3.2 MMOL/L (3.5-5.1) L Chloride Level 105 MMOL/L (98-107) Carbon Dioxide Level 21 MMOL/L (21-32) Anion Gap 14 mmol/L (5-15) Blood Urea Nitrogen 50 mg/dL (7-18) H Creatinine 5.8 MG/DL (0.55-1.30) H Estimat Glomerular Filtration Rate 11.5 mL/min (>60) Glucose Level 251 MG/DL (74-106) H Calcium Level 9.2 MG/DL (8.5-10.1) Phosphorus Level 4.3 MG/DL (2.5-4.9) Magnesium Level 2.1 MG/DL (1.8-2.4) Total Bilirubin 0.6 MG/DL (0.2-1.0) Aspartate Amino Transf (AST/SGOT) 43 U/L (15-37) H Alanine Aminotransferase (ALT/SGPT) 66 U/L (12-78) Alkaline Phosphatase 230 U/L (46-116) H C-Reactive Protein, Quantitative < 0.4 mg/dL (0.00-0.90) Pro-B-Type Natriuretic Peptide 52958 pg/mL (0-125) H Total Protein 5.4 G/DL (6.4-8.2) L Albumin 2.3 G/DL (3.4-5.0) L Globulin 3.1 g/dL Albumin/Globulin Ratio 0.7 (1.0-2.7) L Neurologic Exam Objective Physical Exam: Limited due to patients status unresponsive comatose, Pupils are sluggish, pupils equal reactive to light corneal reflex absent, gag reflex absent facial symmetric motor: spontaneous movement in left hand, sensory responses to suctioning thru trach not to pain. Impression/Recommendations Status: unchanged Diagnostic Impression Imaging: EEG reviewed CT Head: No evidence of acute intracranial hemorrhage, mass effect or cortical edema. MRI recommended for more sensitive evaluation as clinically indicated. Atrophy and nonspecific periventricular hypoattenuation suggestive of chronic ischemic microvascular changes. Assessment And Rec's 1. Anoxic Encephalopathy --> EEG consistent with seizure activity --> S/p recent CODE Blue and intubation --> CT head reviewed as above --> chances of recovery are small, pt has a poor prognosis. Discussed with brother Brayan and discussed poor prognosis he wants to discuss with the rest of the family . 2. Abnormal EEG --> Possible subclinical seizure activity, it is not definitive --> Will start patient on presumptive seizure medication, Agree to continue with Keppra will increase to 1000mg IV BID 3. Acute hypoxemic respiratory failure --> s/p intubation on vent 4. Questionable Pneumonia vs other ---> on abx --> Covid Ag is NEGATIVE, PCR not detected 5. Anemia 6. FTT --> Supportive care 7. CKD --> HD Thank you for allowing us to participate in patient's care, plan of care was discussed with Dr. Jose Armando Camarena who agrees and has reviewed EEG results. Stacy Hinds NP Oct 12, 2020 10:14
--- NOTE | 2020-10-12 10:40 | NUR ---
NURSE NOTES: BHARGAVI Morrow on the unit making his rounds. Updated him on pt's current condition.
--- NOTE | 2020-10-12 12:01 | Surgery Progress Note ---
Surgery Progress Note Subjective Additional Comments ill appearing worsening leukocytosis plt low no n/v non responsive on support Objective Last 24 Hour Vital Signs Date Time Temp Pulse Resp B/P (MAP) Pulse Ox O2 Delivery O2 Flow Rate FiO2 10/12/20 11:44 75 13 30 10/12/20 11:00 113/68 10/12/20 11:00 97 34 113/68 (83) 10/12/20 10:30 82 13 99/55 (70) 98 10/12/20 10:00 95/62 10/12/20 10:00 84 13 95/62 (73) 98 10/12/20 09:30 83 13 98/49 (65) 99 10/12/20 09:00 85 29 105/66 (79) 99 10/12/20 09:00 105/66 10/12/20 08:00 30 10/12/20 08:00 97.4 87 33 104/67 (79) 100 10/12/20 08:00 104/67 10/12/20 08:00 87 10/12/20 08:00 Mechanical Ventilator 10/12/20 07:30 77 35 89/56 (67) 100 10/12/20 07:26 76 13 30 10/12/20 07:00 101/51 10/12/20 07:00 78 33 94/62 (73) 10/12/20 06:30 76 36 10/12/20 06:30 86 33 101/66 (78) 10/12/20 06:00 88 36 101/68 (79) 10/12/20 06:00 101/56 10/12/20 05:00 115/80 10/12/20 05:00 88 38 105/70 (82) 10/12/20 04:53 104/64 10/12/20 04:30 89 41 101/61 (74) 10/12/20 04:00 Mechanical Ventilator 10/12/20 04:00 98.5 93 30 98/62 (74) 10/12/20 04:00 96 10/12/20 04:00 115/80 10/12/20 04:00 30 10/12/20 03:30 90 14 30 10/12/20 03:30 95 32 107/77 (87) 10/12/20 03:00 122 30 110/65 (80) 96 10/12/20 03:00 115/80 3/9/21 03:00 114/50 10/12/20 02:30 100 22 115/72 (86) 96 10/12/20 02:00 133/76 10/12/20 02:00 89 27 116/75 (89) 10/12/20 01:30 84 41 112/72 (85) 10/12/20 01:00 88 46 115/61 (79) 10/12/20 01:00 115/61 10/12/20 00:30 90 45 111/66 (81) 100 10/12/20 00:00 98.5 89 34 114/77 (89) 99 10/12/20 00:00 Mechanical Ventilator 10/12/20 00:00 110/71 10/12/20 00:00 30 10/12/20 00:00 93 10/11/20 23:05 81 10 30 10/11/20 23:00 84 41 118/73 (88) 98 10/11/20 23:00 114/71 10/11/20 22:00 87 30 126/70 (88) 98 10/11/20 22:00 126/70 10/11/20 21:00 Mechanical Ventilator 10/11/20 21:00 118/71 10/11/20 21:00 88 41 118/71 (87) 99 10/11/20 20:00 117/69 10/11/20 20:00 98.0 86 38 127/75 (92) 100 10/11/20 20:00 82 10/11/20 20:00 30 10/11/20 19:30 89 15 30 10/11/20 19:00 114/75 10/11/20 18:00 73 33 100/68 (79) 99 10/11/20 18:00 100/68 10/11/20 17:30 82 30 110/78 (89) 99 10/11/20 17:00 108 28 113/74 (87) 100 10/11/20 17:00 113/74 10/11/20 16:30 130 23 126/83 (97) 98 10/11/20 16:00 30 10/11/20 16:00 98.0 88 17 113/73 (86) 98 10/11/20 16:00 113/73 10/11/20 16:00 80 10/11/20 16:00 Mechanical Ventilator 10/11/20 15:30 77 27 117/70 (86) 98 10/11/20 15:15 86 10 30 10/11/20 15:00 104/65 10/11/20 15:00 68 33 104/65 (78) 100 10/11/20 14:30 67 31 105/69 (81) 100 10/11/20 14:00 84 20 119/77 (91) 98 10/11/20 14:00 119/77 10/11/20 13:00 71 30 94/62 (73) 99 10/11/20 13:00 94/62 I&O Intake and Output 10/11/20 10/12/20 19:00 07:00 Intake Total 760 ml 926.95 ml Output Total 25 ml 10 ml Balance 735 ml 916.95 ml Free Water 140 ml IV Total 320 ml 306.95 ml Tube Feeding 440 ml 480 ml Output Urine Total 25 ml 10 ml # Bowel Movements 50 Dressing: saturated Cardiovascular: RSR Respiratory: decreased breath sounds Abdomen: soft, non-tender, present bowel sounds, non-distended Extremities: no edema, no tenderness, no cyanosis Laboratory Tests Test 10/11/20 16:15 10/12/20 04:00 Activated Partial Thromboplast Time 34 SEC (23-33) H White Blood Count 37.1 K/UL (4.8-10.8) *H Red Blood Count 3.11 M/UL (4.70-6.10) L Hemoglobin 9.6 G/DL (14.2-18.0) L Hematocrit 31.1 % (42.0-52.0) L Mean Corpuscular Volume 100 FL (80-99) H Mean Corpuscular Hemoglobin 30.7 PG (27.0-31.0) Mean Corpuscular Hemoglobin Concent 30.8 G/DL (32.0-36.0) L Red Cell Distribution Width 20.6 % (11.6-14.8) H Platelet Count 56 K/UL (150-450) L Mean Platelet Volume 11.8 FL (6.5-10.1) H Neutrophils (%) (Auto) % (45.0-75.0) Lymphocytes (%) (Auto) % (20.0-45.0) Monocytes (%) (Auto) % (1.0-10.0) Eosinophils (%) (Auto) % (0.0-3.0) Basophils (%) (Auto) % (0.0-2.0) Differential Total Cells Counted 100 Neutrophils % (Manual) 94 % (45-75) H Lymphocytes % (Manual) 2 % (20-45) L Monocytes % (Manual) 4 % (1-10) Eosinophils % (Manual) 0 % (0-3) Basophils % (Manual) 0 % (0-2) Band Neutrophils 0 % (0-8) Platelet Estimate Decreased L Platelet Morphology Normal Hypochromasia 1+ Anisocytosis 2+ Macrocytosis 1+ Schistocytes 1+ Sodium Level 140 MMOL/L (136-145) Potassium Level 3.2 MMOL/L (3.5-5.1) L Chloride Level 105 MMOL/L (98-107) Carbon Dioxide Level 21 MMOL/L (21-32) Anion Gap 14 mmol/L (5-15) Blood Urea Nitrogen 50 mg/dL (7-18) H Creatinine 5.8 MG/DL (0.55-1.30) H Estimat Glomerular Filtration Rate 11.5 mL/min (>60) Glucose Level 251 MG/DL (74-106) H Calcium Level 9.2 MG/DL (8.5-10.1) Phosphorus Level 4.3 MG/DL (2.5-4.9) Magnesium Level 2.1 MG/DL (1.8-2.4) Total Bilirubin 0.6 MG/DL (0.2-1.0) Aspartate Amino Transf (AST/SGOT) 43 U/L (15-37) H Alanine Aminotransferase (ALT/SGPT) 66 U/L (12-78) Alkaline Phosphatase 230 U/L (46-116) H C-Reactive Protein, Quantitative < 0.4 mg/dL (0.00-0.90) Pro-B-Type Natriuretic Peptide 83928 pg/mL (0-125) H Total Protein 5.4 G/DL (6.4-8.2) L Albumin 2.3 G/DL (3.4-5.0) L Globulin 3.1 g/dL Albumin/Globulin Ratio 0.7 (1.0-2.7) L Plan Problems: (1) Cardiopulmonary arrest (2) Septic shock Assessment & Plan: 75 male leukocytosis lactic acidosis septic shock intubated intensive care unit. Unable to give abdominal exam, exam otherwise benign abdominal unlikely etiology imaging reviewed labs reviewed. Continue ventilator support respiratory in nature seemingly. NG tube IV fluids IV antibiotics will follow with recommendations thank you letter participation's care bleeding from HD cath site ddavp ordered will monitor DAILY ESTIMATED NEEDS: Needs based on Critical care 74.2kg 22-28 kcals/kg 1266-5641 total kcals 1.2-2 g protein/kg 89-148 g total protein 25-30 mL/kg 3431-0384 total fluid mLs NUTRITION DIAGNOSIS: Swallowing difficulty r/t respiratory arrest as evidenced by pt intubated, on pressor support, ICU status. ENTERAL NUTRITION RECOMMENDATIONS: As able NEPRO @40ml/hr x24 hrs to provide 960ml, 1728 kcal, 78g pro, 698ml free H2O -When stable for feeds rec renal formula at this time d/t increasing K and phos. -obtain GI access, initiate Nepro @20ml/hr for 6 hrs, advance as tolerated 10ml/hr 2q4-6 hrs to goal -When tolerating TF at goal, add prosource 1 pack BID to better meet est pro needs. -Flush per HOB over 30 degrees. ----> If hemodynamically unstable, rec trophic feeds of Nepro @10ml/hr to maintain gut integrity. ADDITIONAL RECOMMENDATIONS: 1) F/up w/ H&P 2) Maintain D5 IV hydration while NPO 3) Maintain calibrated bed scale wts 4) Non oral feeds when stable (3) Lactic acidosis (4) Failure to thrive (5) Pancytopenia (6) Respiratory failure (7) Hypoxia (8) Pneumonia (9) Respiratory arrest (10) Hypernatremia (11) Renal failure Oni Walker Oct 12, 2020 12:01
--- NOTE | 2020-10-12 12:12 | NUR ---
NURSE NOTES: Pt turned and repositioned. Oral care done. Pt afebrile at this time.
--- NOTE | 2020-10-12 12:13 | Pulmonology Progress Note ---
Subjective ROS Limited/Unobtainable: Yes Interval Events: No change; remains intubated; still on pressors Constitutional: Reports: no symptoms HEENT: Repors: no symptoms Respiratory: Reports: no symptoms Cardiovascular: Reports: no symptoms Gastrointestinal/Abdominal: Reports: no symptoms Genitourinary: Reports: no symptoms Allergies: Coded Allergies: No Known Allergies (Unverified , 09/13/20) All Systems: reviewed and negative except above Objective Last 24 Hour Vital Signs Date Time Temp Pulse Resp B/P (MAP) Pulse Ox O2 Delivery O2 Flow Rate FiO2 10/12/20 11:44 75 13 30 10/12/20 11:00 113/68 10/12/20 11:00 97 34 113/68 (83) 10/12/20 10:30 82 13 99/55 (70) 98 10/12/20 10:00 95/62 10/12/20 10:00 84 13 95/62 (73) 98 10/12/20 09:30 83 13 98/49 (65) 99 10/12/20 09:00 85 29 105/66 (79) 99 10/12/20 09:00 105/66 10/12/20 08:00 30 10/12/20 08:00 97.4 87 33 104/67 (79) 100 10/12/20 08:00 104/67 10/12/20 08:00 87 10/12/20 08:00 Mechanical Ventilator 10/12/20 07:30 77 35 89/56 (67) 100 10/12/20 07:26 76 13 30 10/12/20 07:00 101/51 10/12/20 07:00 78 33 94/62 (73) 10/12/20 06:30 76 36 10/12/20 06:30 86 33 101/66 (78) 10/12/20 06:00 88 36 101/68 (79) 10/12/20 06:00 101/56 10/12/20 05:00 115/80 10/12/20 05:00 88 38 105/70 (82) 10/12/20 04:53 104/64 10/12/20 04:30 89 41 101/61 (74) 10/12/20 04:00 Mechanical Ventilator 10/12/20 04:00 98.5 93 30 98/62 (74) 10/12/20 04:00 96 3/9/21 04:00 115/80 10/12/20 04:00 30 10/12/20 03:30 90 14 30 10/12/20 03:30 95 32 107/77 (87) 10/12/20 03:00 122 30 110/65 (80) 96 10/12/20 03:00 115/80 10/12/20 03:00 114/50 10/12/20 02:30 100 22 115/72 (86) 96 10/12/20 02:00 133/76 10/12/20 02:00 89 27 116/75 (89) 10/12/20 01:30 84 41 112/72 (85) 10/12/20 01:00 88 46 115/61 (79) 10/12/20 01:00 115/61 10/12/20 00:30 90 45 111/66 (81) 100 10/12/20 00:00 98.5 89 34 114/77 (89) 99 10/12/20 00:00 Mechanical Ventilator 10/12/20 00:00 110/71 10/12/20 00:00 30 10/12/20 00:00 93 10/11/20 23:05 81 10 30 10/11/20 23:00 84 41 118/73 (88) 98 10/11/20 23:00 114/71 10/11/20 22:00 87 30 126/70 (88) 98 10/11/20 22:00 126/70 10/11/20 21:00 Mechanical Ventilator 10/11/20 21:00 118/71 10/11/20 21:00 88 41 118/71 (87) 99 10/11/20 20:00 117/69 10/11/20 20:00 98.0 86 38 127/75 (92) 100 10/11/20 20:00 82 10/11/20 20:00 30 10/11/20 19:30 89 15 30 10/11/20 19:00 114/75 10/11/20 18:00 73 33 100/68 (79) 99 10/11/20 18:00 100/68 10/11/20 17:30 82 30 110/78 (89) 99 10/11/20 17:00 108 28 113/74 (87) 100 10/11/20 17:00 113/74 10/11/20 16:30 130 23 126/83 (97) 98 10/11/20 16:00 30 10/11/20 16:00 98.0 88 17 113/73 (86) 98 10/11/20 16:00 113/73 10/11/20 16:00 80 10/11/20 16:00 Mechanical Ventilator 10/11/20 15:30 77 27 117/70 (86) 98 10/11/20 15:15 86 10 30 10/11/20 15:00 104/65 10/11/20 15:00 68 33 104/65 (78) 100 10/11/20 14:30 67 31 105/69 (81) 100 10/11/20 14:00 84 20 119/77 (91) 98 10/11/20 14:00 119/77 10/11/20 13:00 71 30 94/62 (73) 99 10/11/20 13:00 94/62 Intake and Output 10/11/20 10/12/20 19:00 07:00 Intake Total 760 ml 926.95 ml Output Total 25 ml 10 ml Balance 735 ml 916.95 ml Free Water 140 ml IV Total 320 ml 306.95 ml Tube Feeding 440 ml 480 ml Output Urine Total 25 ml 10 ml # Bowel Movements 50 General Appearance: no acute distress HEENT: normocephalic Respiratory: chest wall non-tender Cardiovascular: normal peripheral pulses Abdomen: normal bowel sounds Neurologic: unresponsiveness Microbiology Date/Time Source Procedure Growth Status 10/11/20 18:05 Stool Clostridium difficile Toxin Assay - Final Complete 10/09/20 17:30 Urine,Clean Catch Urine Culture - Preliminary Yeast Species Resulted 10/09/20 17:30 Sputum Expectorated Gram Stain - Final Complete 10/09/20 17:30 Sputum Culture - Final Klebsiella Pneumoniae Mandie Parapsilosis Complete Laboratory Tests 10/11/20 16:15: Activated Partial Thromboplast Time 34H 10/12/20 04:00: White Blood Count 37.1*H, Red Blood Count 3.11L, Hemoglobin 9.6L, Hematocrit 31.1L, Mean Corpuscular Volume 100H, Mean Corpuscular Hemoglobin 30.7, Mean Corpuscular Hemoglobin Concent 30.8L, Red Cell Distribution Width 20.6H, Platelet Count 56L, Mean Platelet Volume 11.8H, Neutrophils (%) (Auto) , Lymph ocytes (%) (Auto) , Monocytes (%) (Auto) , Eosinophils (%) (Auto) , Basophils (%) (Auto) , Differential Total Cells Counted 100, Neutrophils % (Manual) 94H, Lymphocytes % (Manual) 2L, Monocytes % (Manual) 4, Eosinophils % (Manual) 0, Basophils % (Manual) 0, Band Neutrophils 0, Platelet Estimate DecreasedL, Platelet Morphology Normal, Hypochromasia 1+, Anisocytosis 2+, Macrocytosis 1+, Schistocytes 1+, Sodium Level 140, Potassium Level 3.2L, Chloride Level 105, Carbon Dioxide Level 21, Anion Gap 14, Blood Urea Nitrogen 50H, Creatinine 5.8H, Estimat Glomerular Filtration Rate 11.5, Glucose Level 251H, Calcium Level 9.2, Phosphorus Level 4.3, Magnesium Level 2.1, Total Bilirubin 0.6, Aspartate Amino Transf (AST/SGOT) 43H, Alanine Aminotransferase (ALT/SGPT) 66, Alkaline Phosphatase 230H, C-Reactive Protein, Quantitative < 0.4, Pro-B-Type Natriuretic Peptide 77971P, Total Protein 5.4L, Albumin 2.3L, Globulin 3.1, Albumin/Globulin Ratio 0.7L Current Medications Medications (Trade) Dose Ordered Sig/Alfredo Route PRN Reason Start Time Stop Time Status Last Admin Dose Admin Acetaminophen (Tylenol) 650 mg EVERY 6 HOURS PRN NG Temp >100.5 09/30/20 02:30 10/30/20 02:29 Chlorhexidine Gluconate (Babita-Hex 2%) 1 applic DAILY@2000 TOPIC 09/30/20 20:00 12/29/20 19:59 10/11/20 20:20 Dextrose (Dextrose 50%) 25 ml Q30M PRN IV Hypoglycemia 09/30/20 02:30 12/29/20 02:29 Dextrose (Dextrose 50%) 50 ml Q30M PRN IV Hypoglycemia 09/30/20 02:30 12/29/20 02:29 Hydrocortisone (Solu-CORTEF) 100 mg EVERY 8 HOURS IV 09/30/20 14:00 12/29/20 13:59 10/12/20 05:38 Levetiracetam 100 ml @ 400 mls/hr Q12HR IVPB 10/12/20 21:00 01/10/21 20:59 Meropenem 500 mg/ Sodium Chloride 55 ml @ 110 mls/hr EVERY 12 HOURS IVPB 10/11/20 10:00 10/16/20 09:59 10/12/20 08:03 Metoclopramide HCl (Reglan) 5 mg Q6H IVP 10/10/20 12:00 11/09/20 11:59 10/12/20 11:23 Norepinephrine Bitartrate 8 mg/ Dextrose 250 ml @ 0 mls/hr Q24H PRN IV DIRECTED 10/10/20 14:17 10/13/20 14:16 10/12/20 04:53 Pantoprazole (Protonix) 40 mg EVERY 12 HOURS IVP 10/07/20 21:00 11/06/20 20:59 10/12/20 08:02 Vancomycin HCl ([facility] pharmacy to dose) 1 ea DAILY PRN MISC Per rx protocol 10/11/20 09:00 11/10/20 08:59 Assessment/Plan Assessment/Plan 1. Respiratory failure. 2. Multiple medical problems consisting of hypertension, thalassemia, chronic pancreatitis, GERD, neuropathy, and depression. 3. Shock; on pressors 4. Acute renal failure and metabolic acidosis 5. Lactic acidemia 6. AMS; CT brain negative 7. Thrombocytopenia DISCUSSION: Code status needs to be discussed with family. Pt is now DNR. Currently the patient is intubated. s/p dialysis Now FiO2 30%, PEEP 5 -> has failed weaning trials Continue IV fluids. Pressors prn DVT and GI prophylaxis. Broad-spectrum antibiotics. We will follow carefully. Bicarb supplementation ABG adequate Discussed with family He remains DNR but intubation OK Will not extubate given poor mental status and pressor usage The care of this patient was discussed with my supervising physician Time spent for this encounter was approximately 31 minutes Dioni Coats Oct 12, 2020 12:13
--- NOTE | 2020-10-12 13:19 | NUR ---
NURSE NOTES: Spoke to radiology who informed sports book writer that pt will not have ultrasound guided paracentesis today. It will be done tomorrow d/t there being no radiologist in the hospital today. Tube feeding resumed.
--- NOTE | 2020-10-12 13:26 | General Progress Note ---
Subjective ROS Limited/Unobtainable: No Allergies: Coded Allergies: No Known Allergies (Unverified , 09/13/20) Objective Last 24 Hour Vital Signs Date Time Temp Pulse Resp B/P (MAP) Pulse Ox O2 Delivery O2 Flow Rate FiO2 10/12/20 13:00 13 93/59 (70) 99 10/12/20 13:00 93/59 10/12/20 12:30 88 13 104/65 (78) 99 10/12/20 12:00 30 10/12/20 12:00 Mechanical Ventilator 10/12/20 12:00 97.6 77 46 104/66 (79) 99 10/12/20 12:00 84 10/12/20 11:44 75 13 30 10/12/20 11:00 113/68 10/12/20 11:00 97 34 113/68 (83) 10/12/20 10:30 82 13 99/55 (70) 98 10/12/20 10:00 95/62 10/12/20 10:00 84 13 95/62 (73) 98 10/12/20 09:30 83 13 98/49 (65) 99 10/12/20 09:00 85 29 105/66 (79) 99 10/12/20 09:00 105/66 10/12/20 08:00 30 10/12/20 08:00 97.4 87 33 104/67 (79) 100 10/12/20 08:00 104/67 10/12/20 08:00 87 10/12/20 08:00 Mechanical Ventilator 10/12/20 07:30 77 35 89/56 (67) 100 10/12/20 07:26 76 13 30 10/12/20 07:00 101/51 10/12/20 07:00 78 33 94/62 (73) 10/12/20 06:30 76 36 10/12/20 06:30 86 33 101/66 (78) 10/12/20 06:00 88 36 101/68 (79) 10/12/20 06:00 101/56 10/12/20 05:00 115/80 10/12/20 05:00 88 38 105/70 (82) 10/12/20 04:53 104/64 10/12/20 04:30 89 41 101/61 (74) 10/12/20 04:00 Mechanical Ventilator 10/12/20 04:00 98.5 93 30 98/62 (74) 10/12/20 04:00 96 10/12/20 04:00 115/80 10/12/20 04:00 30 10/12/20 03:30 90 14 30 10/12/20 03:30 95 32 107/77 (87) 10/12/20 03:00 122 30 110/65 (80) 96 10/12/20 03:00 115/80 10/12/20 03:00 114/50 10/12/20 02:30 100 22 115/72 (86) 96 10/12/20 02:00 133/76 10/12/20 02:00 89 27 116/75 (89) 10/12/20 01:30 84 41 112/72 (85) 10/12/20 01:00 88 46 115/61 (79) 10/12/20 01:00 115/61 10/12/20 00:30 90 45 111/66 (81) 100 10/12/20 00:00 98.5 89 34 114/77 (89) 99 10/12/20 00:00 Mechanical Ventilator 10/12/20 00:00 110/71 10/12/20 00:00 30 10/12/20 00:00 93 10/11/20 23:05 81 10 30 10/11/20 23:00 84 41 118/73 (88) 98 10/11/20 23:00 114/71 10/11/20 22:00 87 30 126/70 (88) 98 10/11/20 22:00 126/70 10/11/20 21:00 Mechanical Ventilator 10/11/20 21:00 118/71 10/11/20 21:00 88 41 118/71 (87) 99 10/11/20 20:00 117/69 10/11/20 20:00 98.0 86 38 127/75 (92) 100 10/11/20 20:00 82 10/11/20 20:00 30 10/11/20 19:30 89 15 30 10/11/20 19:00 114/75 10/11/20 18:00 73 33 100/68 (79) 99 10/11/20 18:00 100/68 10/11/20 17:30 82 30 110/78 (89) 99 10/11/20 17:00 108 28 113/74 (87) 100 10/11/20 17:00 113/74 10/11/20 16:30 130 23 126/83 (97) 98 10/11/20 16:00 30 10/11/20 16:00 98.0 88 17 113/73 (86) 98 10/11/20 16:00 113/73 10/11/20 16:00 80 10/11/20 16:00 Mechanical Ventilator 10/11/20 15:30 77 27 117/70 (86) 98 10/11/20 15:15 86 10 30 10/11/20 15:00 104/65 10/11/20 15:00 68 33 104/65 (78) 100 10/11/20 14:30 67 31 105/69 (81) 100 10/11/20 14:00 84 20 119/77 (91) 98 10/11/20 14:00 119/77 Intake and Output 10/11/20 10/12/20 19:00 07:00 Intake Total 760 ml 926.95 ml Output Total 25 ml 10 ml Balance 735 ml 916.95 ml Free Water 140 ml IV Total 320 ml 306.95 ml Tube Feeding 440 ml 480 ml Output Urine Total 25 ml 10 ml # Bowel Movements 50 Laboratory Tests 10/11/20 16:15: Activated Partial Thromboplast Time 34H 10/12/20 04:00: White Blood Count 37.1*H, Red Blood Count 3.11L, Hemoglobin 9.6L, Hematocrit 31.1L, Mean Corpuscular Volume 100H, Mean Corpuscular Hemoglobin 30.7, Mean Corpuscular Hemoglobin Concent 30.8L, Red Cell Distribution Width 20.6H, Platelet Count 56L, Mean Platelet Volume 11.8H, Neutrophils (%) (Auto) , Lymphocytes (%) (Auto) , Monocytes (%) (Auto) , Eosinophils (%) (Auto) , Basophils (%) (Auto) , Differential Total Cells Counted 100, Neutrophils % (Ma nual) 94H, Lymphocytes % (Manual) 2L, Monocytes % (Manual) 4, Eosinophils % (Manual) 0, Basophils % (Manual) 0, Band Neutrophils 0, Platelet Estimate DecreasedL, Platelet Morphology Normal, Hypochromasia 1+, Anisocytosis 2+, Macrocytosis 1+, Schistocytes 1+, Sodium Level 140, Potassium Level 3.2L, Chloride Level 105, Carbon Dioxide Level 21, Anion Gap 14, Blood Urea Nitrogen 50H, Creatinine 5.8H, Estimat Glomerular Filtration Rate 11.5, Glucose Level 251H, Calcium Level 9.2, Phosphorus Level 4.3, Magnesium Level 2.1, Total Bilirubin 0.6, Aspartate Amino Transf (AST/SGOT) 43H, Alanine Aminotransferase (ALT/SGPT) 66, Alkaline Phosphatase 230H, C-Reactive Protein, Quantitative < 0.4, Pro-B-Type Natriuretic Peptide 44193E, Total Protein 5.4L, Albumin 2.3L, Globulin 3.1, Albumin/Globulin Ratio 0.7L Height (Feet): 6 Height (Inches): 8.00 Weight (Pounds): 165 General Appearance: no apparent distress EENT: normal ENT inspection Neck: supple Cardiovascular: normal rate Respiratory/Chest: decreased breath sounds Abdomen: hypoactive bowel sounds Extremities: non-tender Assessment/Plan Status: unchanged Assessment/Plan: 1. History of thalassemia. 2. Hypertension. 3. Chronic pancreatitis. 4. Dyslipidemia. 5. Atherosclerosis. 6. GERD. 7. Renal cyst. 8. Peripheral neuropathy. 9. History of colonic polyps. 10. Depression. 11. respiratory failure 12. renal failure 13 anemia 14.ascites ngtf pending paracentesis on reglan for elevated residuals repeat labs hepatitis panel ammonia level Nando Lyles MD Oct 12, 2020 13:26
--- NOTE | 2020-10-12 14:21 | NUR ---
INSUR[employer]ICALS FAXED TO [facility] CM: [phone] and [phone]
--- NOTE | 2020-10-12 15:00 | NUR ---
NURSE NOTES: Pt turned and repositioned. No distress noted at this time. Pt remains on Levophed 6mcg/min
--- NOTE | 2020-10-12 16:24 | NUR ---
NURSE NOTES: Pt fully cleaned and linens changed. Rectal tube removed after noting bright red blood leaking from around the rectal tube. Hematuria also noted in urinary catheter tubing. Dr Ponce and Dr Hutton made aware.
--- NOTE | 2020-10-12 17:15 | NUR ---
NURSE NOTES: Dr Ponce ordered to give 1 unit platelets. Consent obtained from pt's brother and placed in the chart.
--- NOTE | 2020-10-12 17:34 | NUR ---
NURSE NOTES: Called [facility] Nephrology @ [phone] to confirm that dialysis will be done today as tag writer had not received confirmation earlier in the day. Awaiting call back.
--- NOTE | 2020-10-12 17:35 | Internal Med Progress Note ---
Subjective Date of Service: Oct 12, 2020 Physician Name Semaj Kay Attending Physician Ken Hutton MD Current Medications Medications (Trade) Dose Ordered Sig/Alfredo Route PRN Reason Start Time Stop Time Status Last Admin Dose Admin Acetaminophen (Tylenol) 650 mg EVERY 6 HOURS PRN NG Temp >100.5 09/30/20 02:30 10/30/20 02:29 Chlorhexidine Gluconate (Babita-Hex 2%) 1 applic DAILY@2000 TOPIC 09/30/20 20:00 12/29/20 19:59 10/11/20 20:20 Dextrose (Dextrose 50%) 25 ml Q30M PRN IV Hypoglycemia 09/30/20 02:30 12/29/20 02:29 Dextrose (Dextrose 50%) 50 ml Q30M PRN IV Hypoglycemia 09/30/20 02:30 12/29/20 02:29 Hydrocortisone (Solu-CORTEF) 100 mg EVERY 8 HOURS IV 09/30/20 14:00 12/29/20 13:59 10/12/20 13:19 Levetiracetam 100 ml @ 400 mls/hr Q12HR IVPB 10/12/20 21:00 01/10/21 20:59 Meropenem 500 mg/ Sodium Chloride 55 ml @ 110 mls/hr EVERY 12 HOURS IVPB 10/11/20 10:00 10/16/20 09:59 10/12/20 08:03 Metoclopramide HCl (Reglan) 5 mg Q6H IVP 10/10/20 12:00 11/09/20 11:59 10/12/20 11:23 Norepinephrine Bitartrate 8 mg/ Dextrose 250 ml @ 0 mls/hr Q24H PRN IV DIRECTED 10/10/20 14:17 10/13/20 14:16 10/12/20 04:53 Pantoprazole (Protonix) 40 mg EVERY 12 HOURS IVP 10/07/20 21:00 11/06/20 20:59 10/12/20 08:02 [facility]com[facility] 1 ea DAILY PRN MISC Per rx protocol 10/11/20 09:00 11/10/20 08:59 Allergies: Coded Allergies: No Known Allergies (Unverified , 09/13/20) ROS Limited/Unobtainable: Yes Subjective 75 YO M with recent diagnosis of thalassemia admitted with altered mental status. S/P cardiopulmonary arrest 09/29/20. Intubated and sedated. ICU. Cover for Int Sudeep-Dr Hutton Objective Last Vital Signs Date Time Temp Pulse Resp B/P (MAP) Pulse Ox O2 Delivery O2 Flow Rate FiO2 10/12/20 17:00 80 18 86/56 (66) 100 10/12/20 16:00 Mechanical Ventilator 10/12/20 16:00 97.4 10/12/20 16:00 30 Laboratory Tests Test 10/12/20 04:00 White Blood Count 37.1 K/UL (4.8-10.8) *H Red Blood Count 3.11 M/UL (4.70-6.10) L Hemoglobin 9.6 G/DL (14.2-18.0) L Hematocrit 31.1 % (42.0-52.0) L Mean Corpuscular Volume 100 FL (80-99) H Mean Corpuscular Hemoglobin 30.7 PG (27.0-31.0) Mean Corpuscular Hemoglobin Concent 30.8 G/DL (32.0-36.0) L Red Cell Distribution Width 20.6 % (11.6-14.8) H Platelet Count 56 K/UL (150-450) L Mean Platelet Volume 11.8 FL (6.5-10.1) H Neutrophils (%) (Auto) % (45.0-75.0) Lymphocytes (%) (Auto) % (20.0-45.0) Monocytes (%) (Auto) % (1.0-10.0) Eosinophils (%) (Auto) % (0.0-3.0) Basophils (%) (Auto) % (0.0-2.0) Differential Total Cells Counted 100 Neutrophils % (Manual) 94 % (45-75) H Lymphocytes % (Manual) 2 % (20-45) L Monocytes % (Manual) 4 % (1-10) Eosinophils % (Manual) 0 % (0-3) Basophils % (Manual) 0 % (0-2) Band Neutrophils 0 % (0-8) Platelet Estimate Decreased L Platelet Morphology Normal Hypochromasia 1+ Anisocytosis 2+ Macrocytosis 1+ Schistocytes 1+ Sodium Level 140 MMOL/L (136-145) Potassium Level 3.2 MMOL/L (3.5-5.1) L Chloride Level 105 MMOL/L (98-107) Carbon Dioxide Level 21 MMOL/L (21-32) Anion Gap 14 mmol/L (5-15) Blood Urea Nitrogen 50 mg/dL (7-18) H Creatinine 5.8 MG/DL (0.55-1.30) H Estimat Glomerular Filtration Rate 11.5 mL/min (>60) Glucose Level 251 MG/DL (74-106) H Calcium Level 9.2 MG/DL (8.5-10.1) Phosphorus Level 4.3 MG/DL (2.5-4.9) Magnesium Level 2.1 MG/DL (1.8-2.4) Total Bilirubin 0.6 MG/DL (0.2-1.0) Aspartate Amino Transf (AST/SGOT) 43 U/L (15-37) H Alanine Aminotransferase (ALT/SGPT) 66 U/L (12-78) Alkaline Phosphatase 230 U/L (46-116) H C-Reactive Protein, Quantitative < 0.4 mg/dL (0.00-0.90) Pro-B-Type Natriuretic Peptide 36778 pg/mL (0-125) H Total Protein 5.4 G/DL (6.4-8.2) L Albumin 2.3 G/DL (3.4-5.0) L Globulin 3.1 g/dL Albumin/Globulin Ratio 0.7 (1.0-2.7) L Microbiology Date/Time Source Procedure Growth Status 10/11/20 18:05 Stool Clostridium difficile Toxin Assay - Final Complete 10/11/20 12:40 Blood Blood Culture - Preliminary NO GROWTH AFTER 24 HOURS Resulted 10/11/20 12:30 Blood Blood Culture - Preliminary NO GROWTH AFTER 24 HOURS Resulted Intake and Output0 10/11/20 10/12/20 19:00 07:00 Intake Total 760 ml 926.95 ml Output Total 25 ml 10 ml Balance 735 ml 916.95 ml Free Water 140 ml IV Total 320 ml 306.95 ml Tube Feeding 440 ml 480 ml Output Urine Total 25 ml 10 ml # Bowel Movements 50 Objective Physical Exam General Appearance: lethargic Lines, tubes and drains: central line - R IJ HEENT: normocephalic, atraumatic, other - Pupils are 2 mm and sluggish reaction to light. Neck: non-tender Respiratory/Chest: Mech vent; lungs with rhonchi and wheezes bilat Cardiovascular/Chest: normal rate Abdomen: no mass, hypoactive bowel sounds Extremities: non-pitting Neurologic: unresponsiveness Assessment/Plan Assessment/Plan Assessment/Plan Status: unchanged Assessment/Plan: 75 y/o Male admitted to the Hospital with; # AMS # Acute encephalopathy # Acute hypoxemic respiratory failure # Respiratory acidosis. ABG monitoring. Intubation in the ER Pulmonary/ICU wtih Dr. Benavidez Renal consultation with Dr. Estrada. Add CT head wo contrast to rule out bleed vs other completing today. On route. EEG ordered today as no prior order found. Concern for anoxic brain injury. Seizure disorder # Pneumonia vs other ID consultation with Dr. Ricketts Zoeric and Vancomycin Follow up lactate and wbc, cultures Covid Ag is NEGATIVE, PCR NEG Leukocytosis # Thalassemia Recent BM biopsy which was negative per family report. [place] MR number is [id number] ( MR not linked with [facility] database ) Supportive care Consider Hematology follow up as needed Continue kescottra per neurology=Dr Carranza # FTT - anorexia and weight loss Supportive care RD consult in the next 2 days for nutrition DNR DVT ppx GI ppx R IJ line Replace KCL IV abx=vanco and meroperosendo, Semaj Kay MD Oct 12, 2020 17:35
--- NOTE | 2020-10-12 19:16 | NUR ---
NURSE HAND-OFF REPORT: Latest Vital Signs: Temperature 97.4 , Pulse 98 , B/P 104 /60 , Respiratory Rate 14 , O2 SAT 98 , Mechanical Ventilator, FiO2 30%. Vital Sign Comment: EKG Rhythm: Sinus Rhythm Rhythm change?: N MD Notified?: N - MD Response: Latest Carty Fall Score: 50 Fall Risk: High Risk Safety Measures: Call light Within Reach, Bed Alarm Zone 1, Side Rails Side Rails x3, Bed position Low and Locked. Fall Precautions: Yellow Socks Door Sign Patient Fall Education Report given to KIRBY Choe.
--- NOTE | 2020-10-12 20:01 | NUR ---
NURSE NOTES: received report from joanne rn pt obtunded does not follows command no movement all extremities orally intubated -vent o2 sat 100% no resp distress noted tolerating tube feeding no residual hd started levo drip >12mcg/min with bp 87/55-116/73 well cont monetor pt
[2020-10-12] MEDS: Dyna-Hex 2% Top Sol 2oz TOPIC SCH (21:06)
[2020-10-12] MEDS: levETIRAcetam 1,000mg/NS100ml 100 ML IVPB SCH (21:07)
--- NOTE | 2020-10-12 22:50 | NUR ---
NURSE NOTES: plt 200cc started no reaction after 15 min infusion
[2020-10-13] VITALS (53 sets, daily range): BP systolic 96–137; BP diastolic 55–84
--- NOTE | 2020-10-13 | NUR ---
NURSE NOTES: plt infusion done no reaction noted
[2020-10-13] MEDS: Metoclopramide 10mg/2ml Inj IVP SCH ×4 (00:06→17:05)
--- NOTE | 2020-10-13 04:00 | NUR ---
NURSE NOTES: Complete bed bath with bed changed done.
[2020-10-13 05:11] LABS: HEMOGLOBIN 9.4 G/DL (14.2-18.0); MEAN CORPUSCULAR VOLUME 101 FL (80-99); PLATELET COUNT 103 K/UL (150-450); RED BLOOD COUNT 2.98 M/UL (4.70-6.10)
[2020-10-13 05:33] LABS: WHITE BLOOD COUNT 33.9 K/UL (4.8-10.8)
[2020-10-13] MEDS: Hydrocortisone 100mg Inj IV SCH ×3 (05:44→21:17)
[2020-10-13 05:49] LABS: ALBUMIN 2.4 G/DL (3.4-5.0); ALBUMIN/GLOBULIN RATIO 0.8 (1.0-2.7); BILIRUBIN,TOTAL 0.7 MG/DL (0.2-1.0); CALCIUM 9.2 MG/DL (8.5-10.1); CREATININE 4.5 MG/DL (0.55-1.30)
[2020-10-13 05:57] LABS: PHOSPHORUS 3.5 MG/DL (2.5-4.9)
--- NOTE | 2020-10-13 06:00 | NUR ---
NURSE NOTES: Neuro unchanged. needs frequent suctioning.
--- NOTE | 2020-10-13 06:49 | Hematology/Onc Progress Note ---
Assessment/Plan Assessment/Plan Lab Data: reviewed IMAGING: CT Head: No evidence of acute intracranial hemorrhage, mass effect or cortical edema. MRI recommended for more sensitive evaluation as clinically indicated. Atrophy and nonspecific periventricular hypoattenuation suggestive of chronic ischemic microvascular changes. Assessment And Rec's 1. Thrombocytopenia and p/w Anemia of Chronic Disease, in chart hx of anemia --> check anemia panel --> transfuse to keep HGB >7 --> cont to monitor HGB trend, stool ob --> prior imaging reviewed, showed strophic liver --> plt 52-->56-->106 --> s/p plt 10/13 2. Leukocytosis is likely related to infection --> ABx as per id emiliana/vanc --> wbc 36-->37-->34 --> smear is noted 3. Anemia due to chronic disease --> hgb 9-->9.4 --> no hemolysis is noted --> transfuse prn 4. Anoxic Encephalopathy --> S/p recent CODE Blue and intubation --> CT head reviewed as above Covid Ag is NEGATIVE, PCR sent and pending. PUI status 5. FTT --> Supportive care pt is DNR 6. Acute hypoxemic respiratory failure --> s/p intubation on vent 7. Dvt ppx scds Greatly appreciate consult. Subjective Neurologic/Psychiatric: Denies: no symptoms, anxiety, depressed, emotional problems, headache, numbness, paresthesia, pre-existing deficit, seizure, tingling, tremors, weakness, other Endocrine: Denies: no symptoms, excessive sweating, flushing, intolerance to cold, intolerance to heat, increased hunger, increased thirst, increased urine, unexplained weight gain, unexplained weight loss, other Allergies: Coded Allergies: No Known Allergies (Unverified , 09/13/20) All Systems: reviewed and negative except above Subjective 10/11 icu, nv, is on vent, no bleeding, dw rn, labs reviewed, plt 52 10/12 icu, nv, remains on vent as well as levo, labs are reviewed, wbc 37k 10/13 icu, nv, remains on vent, and levo pressors, labs noted, wbc better Objective Objective Current Medications Medications (Trade) Dose Ordered Sig/Alfredo Route PRN Reason Start Time Stop Time Status Last Admin Dose Admin Acetaminophen (Tylenol) 650 mg EVERY 6 HOURS PRN NG Temp >100.5 09/30/20 02:30 10/30/20 02:29 Chlorhexidine Gluconate (Babita-Hex 2%) 1 applic DAILY@2000 TOPIC 09/30/20 20:00 12/29/20 19:59 10/12/20 21:06 Dextrose (Dextrose 50%) 25 ml Q30M PRN IV Hypoglycemia 09/30/20 02:30 12/29/20 02:29 Dextrose (Dextrose 50%) 50 ml Q30M PRN IV Hypoglycemia 09/30/20 02:30 12/29/20 02:29 Hydrocortisone (Solu-CORTEF) 100 mg EVERY 8 HOURS IV 09/30/20 14:00 12/29/20 13:59 10/13/20 05:44 Levetiracetam 100 ml @ 400 mls/hr Q12HR IVPB 10/12/20 21:00 01/10/21 20:59 10/12/20 21:07 Meropenem 500 mg/ Sodium Chloride 55 ml @ 110 mls/hr EVERY 12 HOURS IVPB 10/11/20 10:00 10/16/20 09:59 10/12/20 21:08 Metoclopramide HCl (Reglan) 5 mg Q6H IVP 10/10/20 12:00 11/09/20 11:59 10/13/20 05:44 Norepinephrine Bitartrate 8 mg/ Dextrose 250 ml @ 0 mls/hr Q24H PRN IV DIRECTED 10/10/20 14:17 10/13/20 14:16 10/12/20 22:24 Pantoprazole (Protonix) 40 mg EVERY 12 HOURS IVP 10/07/20 21:00 11/06/20 20:59 10/12/20 21:06 Vancomycin HCl (Vanco pharmacy to dose) 1 ea DAILY PRN MISC Per rx protocol 10/11/20 09:00 11/10/20 08:59 Last 24 Hour Vital Signs Date Time Temp Pulse Resp B/P (MAP) Pulse Ox O2 Delivery O2 Flow Rate FiO2 10/13/20 06:30 95 36 10/13/20 06:00 127/74 10/13/20 06:00 94 18 132/79 (96) 10/13/20 05:30 86 16 130/74 (92) 10/13/20 05:00 89 18 131/77 (95) 10/13/20 05:00 144/77 10/13/20 04:30 96 23 104/58 (73) 97 10/13/20 04:00 98.3 86 20 118/73 (88) 96 10/13/20 04:00 104/71 10/13/20 04:00 30 10/13/20 04:00 89 10/13/20 04:00 Mechanical Ventilator 10/13/20 03:30 79 17 112/72 (85) 97 10/13/20 03:02 92 15 30 10/13/20 03:00 82 19 114/70 (85) 97 10/13/20 03:00 116/66 10/13/20 02:30 84 16 115/75 (88) 96 10/13/20 02:00 115/76 10/13/20 02:00 79 15 111/69 (83) 10/13/20 01:30 80 15 115/67 (83) 10/13/20 01:30 80 15 115/67 (83) 10/13/20 01:00 82 19 110/70 (83) 97 10/13/20 01:00 107/60 10/13/20 00:45 83 15 107/71 (83) 97 10/13/20 00:30 82 15 111/67 (82) 10/13/20 00:30 82 15 111/67 (82) 97 10/13/20 00:15 82 16 112/68 (83) 10/13/20 00:15 82 16 112/68 (83) 97 10/13/20 00:00 30 10/13/20 00:00 114/64 10/13/20 00:00 Mechanical Ventilator 10/13/20 00:00 98.5 80 17 111/71 (84) 97 10/13/20 00:00 98 10/13/20 00:00 80 17 111/71 (84) 10/12/20 23:45 81 14 107/60 (76) 97 10/12/20 23:30 80 17 116/71 (86) 97 10/12/20 23:18 82 14 30 10/12/20 23:15 79 16 114/70 (85) 97 10/12/20 23:00 83 21 110/70 (83) 97 10/12/20 23:00 116/60 10/12/20 22:45 80 17 119/76 (90) 97 10/12/20 22:30 73 14 124/80 (95) 96 10/12/20 22:24 104/64 10/12/20 22:15 80 17 114/72 (86) 96 10/12/20 22:00 104/56 10/12/20 22:00 76 20 107/65 (79) 10/12/20 21:45 92 17 88/57 (67) 10/12/20 21:40 85 18 93/58 (70) 10/12/20 21:35 93 18 84/44 (57) 10/12/20 21:30 90 18 86/58 (67) 10/12/20 21:15 88 18 98/55 (69) 10/12/20 21:00 104/67 10/12/20 21:00 74 17 104/69 (81) 99 10/12/20 20:45 82 17 82/53 (63) 10/12/20 20:30 86 18 78/48 (58) 10/12/20 20:15 99 20 91/59 (70) 10/12/20 20:00 30 10/12/20 20:00 Mechanical Ventilator 10/12/20 20:00 97.5 77 16 87/59 (68) 100 10/12/20 20:00 96/64 10/12/20 20:00 90 10/12/20 19:12 98 14 30 10/12/20 19:00 76 23 104/60 (75) 98 10/12/20 19:00 104/60 10/12/20 18:00 103/66 10/12/20 18:00 80 24 103/66 (78) 98 10/12/20 17:30 78 15 94/60 (71) 100 10/12/20 17:00 80 18 86/56 (66) 100 10/12/20 17:00 80 20 111/67 (82) 10/12/20 17:00 86/56 10/12/20 16:30 87 16 101/68 (79) 97 10/12/20 16:00 Mechanical Ventilator 10/12/20 16:00 87 10/12/20 16:00 98/61 10/12/20 16:00 97.4 82 33 98/61 (73) 98 10/12/20 16:00 30 10/12/20 15:30 88 31 103/67 (79) 98 10/12/20 15:22 100 16 30 10/12/20 15:00 92/56 10/12/20 15:00 72 37 92/56 (68) 99 10/12/20 14:30 74 31 89/57 (68) 100 10/12/20 14:00 73 39 98/62 (74) 100 10/12/20 14:00 98/62 10/12/20 13:30 83 42 102/65 (77) 99 10/12/20 13:00 13 93/59 (70) 99 10/12/20 13:00 93/59 10/12/20 12:30 88 13 104/65 (78) 99 10/12/20 12:00 30 10/12/20 12:00 Mechanical Ventilator 10/12/20 12:00 97.6 77 46 104/66 (79) 99 10/12/20 12:00 84 10/12/20 11:44 75 13 30 10/12/20 11:00 113/68 10/12/20 11:00 97 34 113/68 (83) 10/12/20 10:30 82 13 99/55 (70) 98 10/12/20 10:00 95/62 10/12/20 10:00 84 13 95/62 (73) 98 10/12/20 09:30 83 13 98/49 (65) 99 10/12/20 09:00 85 29 105/66 (79) 99 10/12/20 09:00 105/66 10/12/20 08:00 30 10/12/20 08:00 97.4 87 33 104/67 (79) 100 10/12/20 08:00 104/67 10/12/20 08:00 87 10/12/20 08:00 Mechanical Ventilator 10/12/20 07:30 77 35 89/56 (67) 100 10/12/20 07:26 76 13 30 10/12/20 07:00 101/51 10/12/20 07:00 78 33 94/62 (73) 10/12/20 06:30 76 36 10/12/20 06:30 86 33 101/66 (78) 10/12/20 06:00 88 36 101/68 (79) 10/12/20 06:00 101/56 10/12/20 05:00 115/80 10/12/20 05:00 88 38 105/70 (82) 10/12/20 04:53 104/64 10/12/20 04:30 89 41 101/61 (74) 10/12/20 04:00 Mechanical Ventilator 10/12/20 04:00 98.5 93 30 98/62 (74) 10/12/20 04:00 96 10/12/20 04:00 115/80 10/12/20 04:00 30 10/12/20 03:30 90 14 30 10/12/20 03:30 95 32 107/77 (87) 10/12/20 03:00 122 30 110/65 (80) 96 10/12/20 03:00 115/80 10/12/20 03:00 114/50 10/12/20 02:30 100 22 115/72 (86) 96 10/12/20 02:00 133/76 10/12/20 02:00 89 27 116/75 (89) 10/12/20 01:30 84 41 112/72 (85) 10/12/20 01:00 88 46 115/61 (79) 10/12/20 01:00 115/61 10/12/20 00:30 90 45 111/66 (81) 100 10/12/20 00:00 98.5 89 34 114/77 (89) 99 10/12/20 00:00 Mechanical Ventilator 10/12/20 00:00 110/71 10/12/20 00:00 30 10/12/20 00:00 93 10/11/20 23:05 81 10 30 10/11/20 23:00 84 41 118/73 (88) 98 10/11/20 23:00 114/71 10/11/20 22:00 87 30 126/70 (88) 98 10/11/20 22:00 126/70 10/11/20 21:00 Mechanical Ventilator 10/11/20 21:00 118/71 10/11/20 21:00 88 41 118/71 (87) 99 10/11/20 20:00 117/69 10/11/20 20:00 98.0 86 38 127/75 (92) 100 10/11/20 20:00 82 10/11/20 20:00 30 10/11/20 19:30 89 15 30 10/11/20 19:00 114/75 10/11/20 18:00 73 33 100/68 (79) 99 10/11/20 18:00 100/68 10/11/20 17:30 82 30 110/78 (89) 99 10/11/20 17:00 108 28 113/74 (87) 100 10/11/20 17:00 113/74 10/11/20 16:30 130 23 126/83 (97) 98 10/11/20 16:00 30 10/11/20 16:00 98.0 88 17 113/73 (86) 98 10/11/20 16:00 113/73 10/11/20 16:00 80 10/11/20 16:00 Mechanical Ventilator 10/11/20 15:30 77 27 117/70 (86) 98 10/11/20 15:15 86 10 30 10/11/20 15:00 104/65 10/11/20 15:00 68 33 104/65 (78) 100 10/11/20 14:30 67 31 105/69 (81) 100 10/11/20 14:00 84 20 119/77 (91) 98 10/11/20 14:00 119/77 10/11/20 13:00 71 30 94/62 (73) 99 10/11/20 13:00 94/62 10/11/20 12:00 79 10/11/20 12:00 101/69 10/11/20 12:00 30 10/11/20 12:00 98.1 79 35 101/69 (80) 100 10/11/20 12:00 Mechanical Ventilator 10/11/20 11:30 80 31 100/67 (78) 100 10/11/20 11:15 74 12 30 10/11/20 11:00 81 23 104/64 (77) 99 10/11/20 11:00 104/64 10/11/20 10:30 80 30 94/62 (73) 99 10/11/20 10:00 82 31 108/72 (84) 100 10/11/20 10:00 105/63 10/11/20 09:30 65 33 93/60 (71) 100 10/11/20 09:00 93/59 3/8/21 09:00 73 28 93/59 (70) 100 10/11/20 08:30 83 28 106/68 (81) 99 10/11/20 08:00 98.1 82 25 104/66 (79) 99 10/11/20 08:00 104/66 10/11/20 08:00 89 10/11/20 08:00 30 10/11/20 08:00 Mechanical Ventilator 10/11/20 07:16 88 13 30 10/11/20 07:00 80 29 106/62 (77) 100 10/11/20 07:00 106/64 Intake and Output 10/12/20 10/13/20 19:00 07:00 Intake Total 537.50 ml 1267.125 ml Output Total 20 ml 0 ml Balance 517.50 ml 1267.125 ml Free Water 100 ml IV Total 297.50 ml 447.125 ml Tube Feeding 240 ml 520 ml Blood Product 200 ml Output Urine Total 20 ml 0 ml # Bowel Movements 101 6 Labs Test 10/10/20 07:15 10/10/20 17:10 10/11/20 04:54 10/11/20 16:15 White Blood Count 30.6 K/UL (4.8-10.8) 35.7 K/UL (4.8-10.8) Red Blood Count 3.24 M/UL (4.70-6.10) 3.04 M/UL (4.70-6.10) Hemoglobin 9.7 G/DL (14.2-18.0) 9.3 G/DL (14.2-18.0) Hematocrit 32.0 % (42.0-52.0) 30.0 % (42.0-52.0) Mean Corpuscular Volume 99 FL (80-99) 99 FL (80-99) Mean Corpuscular Hemoglobin 30.0 PG (27.0-31.0) 30.5 PG (27.0-31.0) Mean Corpuscular Hemoglobin Concent 30.3 G/DL (32.0-36.0) 31.0 G/DL (32.0-36.0) Red Cell Distribution Width 20.3 % (11.6-14.8) 20.4 % (11.6-14.8) Platelet Count 45 K/UL (150-450) 52 K/UL (150-450) Mean Platelet Volume 11.0 FL (6.5-10.1) 10.7 FL (6.5-10.1) Neutrophils (%) (Auto) % (45.0-75.0) % (45.0-75.0) Lymphocytes (%) (Auto) % (20.0-45.0) % (20.0-45.0) Monocytes (%) (Auto) % (1.0-10.0) % (1.0-10.0) Eosinophils (%) (Auto) % (0.0-3.0) % (0.0-3.0) Basophils (%) (Auto) % (0.0-2.0) % (0.0-2.0) Differential Total Cells Counted 100 100 Neutrophils % (Manual) 87 % (45-75) 95 % (45-75) Lymphocytes % (Manual) 6 % (20-45) 2 % (20-45) Monocytes % (Manual) 7 % (1-10) 3 % (1-10) Eosinophils % (Manual) 0 % (0-3) 0 % (0-3) Basophils % (Manual) 0 % (0-2) 0 % (0-2) Band Neutrophils 0 % (0-8) 0 % (0-8) Platelet Estimate Decreased Decreased Platelet Morphology Normal Normal Hypochromasia 1+ 1+ Anisocytosis 2+ 1+ Sodium Level 143 MMOL/L (136-145) 141 MMOL/L (136-145) Potassium Level 3.4 MMOL/L (3.5-5.1) 3.0 MMOL/L (3.5-5.1) Chloride Level 107 MMOL/L (98-107) 105 MMOL/L (98-107) Carbon Dioxide Level 24 MMOL/L (21-32) 24 MMOL/L (21-32) Anion Gap 12 mmol/L (5-15) 13 mmol/L (5-15) Blood Urea Nitrogen 36 mg/dL (7-18) 43 mg/dL (7-18) Creatinine 4.6 MG/DL (0.55-1.30) 5.1 MG/DL (0.55-1.30) Estimat Glomerular Filtration Rate 15.2 mL/min (>60) 13.5 mL/min (>60) Glucose Level 205 MG/DL (74-106) 234 MG/DL (74-106) Calcium Level 8.9 MG/DL (8.5-10.1) 8.9 MG/DL (8.5-10.1) Phosphorus Level 3.3 MG/DL (2.5-4.9) 3.7 MG/DL (2.5-4.9) Magnesium Level 1.9 MG/DL (1.8-2.4) 2.0 MG/DL (1.8-2.4) Total Bilirubin 0.8 MG/DL (0.2-1.0) 0.7 MG/DL (0.2-1.0) Aspartate Amino Transf (AST/SGOT) 50 U/L (15-37) 40 U/L (15-37) Alanine Aminotransferase (ALT/SGPT) 61 U/L (12-78) 63 U/L (12-78) Alkaline Phosphatase 125 U/L (46-116) 155 U/L (46-116) C-Reactive Protein, Quantitative < 0.4 mg/dL (0.00-0.90) < 0.4 mg/dL (0.00-0.90) Pro-B-Type Natriuretic Peptide 8027 pg/mL (0-125) 86066 pg/mL (0-125) Total Protein 5.6 G/DL (6.4-8.2) 5.4 G/DL (6.4-8.2) Albumin 2.4 G/DL (3.4-5.0) 2.3 G/DL (3.4-5.0) Globulin 3.2 g/dL 3.1 g/dL Albumin/Globulin Ratio 0.8 (1.0-2.7) 0.7 (1.0-2.7) Iron Level 51 ug/dL (50-175) Total Iron Binding Capacity 147 ug/dL (250-450) Percent Iron Saturation 35 % (15-50) Unsaturated Iron Binding 96 ug/dL (112-346) Macrocytosis 1+ Schistocytes 1+ Prothrombin Time 15.7 SEC (9.30-11.50) Prothromb Time International Ratio 1.5 (0.9-1.1) Ammonia 19 umol/L (-32) Hepatitis A IgM Antibody Negative (Negative) Hepatitis B Surface Antigen Negative (Negative) Hepatitis B Core IgM Antibody Negative (Negative) Hepatitis C Antibody <0.1 s/co ratio HIV (1&2) Antibody Rapid Negative (NEGATIVE) Activated Partial Thromboplast Time 34 SEC (23-33) Test 10/12/20 04:00 10/13/20 04:00 White Blood Count 37.1 K/UL (4.8-10.8) 33.9 K/UL (4.8-10.8) Red Blood Count 3.11 M/UL (4.70-6.10) 2.98 M/UL (4.70-6.10) Hemoglobin 9.6 G/DL (14.2-18.0) 9.4 G/DL (14.2-18.0) Hematocrit 31.1 % (42.0-52.0) 30.0 % (42.0-52.0) Mean Corpuscular Volume 100 FL (80-99) 101 FL (80-99) Mean Corpuscular Hemoglobin 30.7 PG (27.0-31.0) 31.6 PG (27.0-31.0) Mean Corpuscular Hemoglobin Concent 30.8 G/DL (32.0-36.0) 31.3 G/DL (32.0-36.0) Red Cell Distribution Width 20.6 % (11.6-14.8) 21.0 % (11.6-14.8) Platelet Count 56 K/UL (150-450) 103 K/UL (150-450) Mean Platelet Volume 11.8 FL (6.5-10.1) 9.9 FL (6.5-10.1) Neutrophils (%) (Auto) % (45.0-75.0) % (45.0-75.0) Lymphocytes (%) (Auto) % (20.0-45.0) % (20.0-45.0) Monocytes (%) (Auto) % (1.0-10.0) % (1.0-10.0) Eosinophils (%) (Auto) % (0.0-3.0) % (0.0-3.0) Basophils (%) (Auto) % (0.0-2.0) % (0.0-2.0) Differential Total Cells Counted 100 Neutrophils % (Manual) 94 % (45-75) Lymphocytes % (Manual) 2 % (20-45) Monocytes % (Manual) 4 % (1-10) Eosinophils % (Manual) 0 % (0-3) Basophils % (Manual) 0 % (0-2) Band Neutrophils 0 % (0-8) Platelet Estimate Decreased Platelet Morphology Normal Hypochromasia 1+ Anisocytosis 2+ Macrocytosis 1+ Schistocytes 1+ Sodium Level 140 MMOL/L (136-145) 142 MMOL/L (136-145) Potassium Level 3.2 MMOL/L (3.5-5.1) 3.0 MMOL/L (3.5-5.1) Chloride Level 105 MMOL/L (98-107) 105 MMOL/L (98-107) Carbon Dioxide Level 21 MMOL/L (21-32) 22 MMOL/L (21-32) Anion Gap 14 mmol/L (5-15) 15 mmol/L (5-15) Blood Urea Nitrogen 50 mg/dL (7-18) 37 mg/dL (7-18) Creatinine 5.8 MG/DL (0.55-1.30) 4.5 MG/DL (0.55-1.30) Estimat Glomerular Filtration Rate 11.5 mL/min (>60) 15.5 mL/min (>60) Glucose Level 251 MG/DL (74-106) 261 MG/DL (74-106) Calcium Level 9.2 MG/DL (8.5-10.1) 9.2 MG/DL (8.5-10.1) Phosphorus Level 4.3 MG/DL (2.5-4.9) 3.5 MG/DL (2.5-4.9) Magnesium Level 2.1 MG/DL (1.8-2.4) 1.9 MG/DL (1.8-2.4) Total Bilirubin 0.6 MG/DL (0.2-1.0) 0.7 MG/DL (0.2-1.0) Aspartate Amino Transf (AST/SGOT) 43 U/L (15-37) 54 U/L (15-37) Alanine Aminotransferase (ALT/SGPT) 66 U/L (12-78) 78 U/L (12-78) Alkaline Phosphatase 230 U/L (46-116) 237 U/L (46-116) C-Reactive Protein, Quantitative < 0.4 mg/dL (0.00-0.90) < 0.4 mg/dL (0.00-0.90) Pro-B-Type Natriuretic Peptide 65130 pg/mL (0-125) 50064 pg/mL (0-125) Total Protein 5.4 G/DL (6.4-8.2) 5.5 G/DL (6.4-8.2) Albumin 2.3 G/DL (3.4-5.0) 2.4 G/DL (3.4-5.0) Globulin 3.1 g/dL 3.1 g/dL Albumin/Globulin Ratio 0.7 (1.0-2.7) 0.8 (1.0-2.7) Random Vancomycin Level 20.8 ug/mL Height (Feet): 6 Height (Inches): 8.00 Weight (Pounds): 165 Objective Physical Exam: pt is camotose. Sedated HEENT: NC/AT. EOMI. Cardiovascular: Irregularly irregular rhythm. Resp: intubated on vent ++ Abdomen: Abdomen is soft, nondistended. Nd Skin: Intact. MSK: obtunded Neuro: limited exam Bert Ponce MD Oct 13, 2020 06:49
--- NOTE | 2020-10-13 07:27 | NUR ---
NURSE HAND-OFF REPORT: Latest Vital Signs: Temperature 98.3 , Pulse 94 , B/P 127 /84 , Respiratory Rate 18 , O2 SAT 97 , Mechanical Ventilator, O2 Flow Rate 100.0 . Vital Sign Comment: EKG Rhythm: Sinus Rhythm Rhythm change?: N MD Notified?: N - MD Response: Latest Carty Fall Score: 50 Fall Risk: High Risk Safety Measures: Call light Within Reach, Bed Alarm Zone 1, Side Rails Side Rails x3, Bed position Low and Locked. Fall Precautions: Yellow Socks Door Sign Patient Fall Education Report given to Monalisa ORR by KIRBY Ramirez. .
--- NOTE | 2020-10-13 07:38 | NUR ---
NURSE NOTES: Received report from KIRBY Valderrama. Patient is obtunded, opens eyes to pain, not tracking. ETT 7.5/24cm at lip line with vent setting AC 8, Tidal Volume 500, fiO2 30%, PEEP 5. Right nare NGT intact; Nepro @ 40mL/hr. Right IJ TLC intact and running Levophed 12mcg/min. Lt IJ dialysis catheter with pigtail noted, dressing clean, dry, and intact. Generalized edema noted. Pt on a P200 mattress. Bed locked and in lowest position, with call light within reach. Bed side rials padded for seizure precautions. Will continue plan of care.
--- NOTE | 2020-10-13 08:15 | Infectious Diseases Prog Note ---
Assessment/Plan 75 yo male with PMHx of failure to thrive, HTN, thalassemia, pancytopenia, HLD, Depression who was [facility] to the ED from his [facility] for AMS. Septic Shock PNA Acute hypoxic resp failure sp VDRF -10/04 sp Cx - K. Pnaumo -10/01 sp cx S. aureus (MSSA), K. pna (r amp; otherwise S) -09/30 COVID PCr neg -09/30 CXR: Bibasilar atelectasis versus infiltrates CXR 09/29/20 - Left basilar atelectasis. No acute process otherwise. Evidence of old granulomatous disease rapid covid ag neg , PCR : neg S. epi bacteremia- contaminant vs real -10/03 Bcx NGTD -09/29 BCx 09/07 sets S. epi Leukocytosis; increased ( on steroids) No fever -09/30 ucx neg AMS -CT head: New NG tube and mid to distal esophagus. Recommend advancement. Bibasilar atelectasis versus infiltrates Lactic acidosis Failure to thrive HTN Thalassemia Pancytopenia HLD Depression Adenomatous colonic polyps PLAN Start Meropenem #3 and Vancomycin #3 f/u cultures f/u C. diff Repeat CXR - 10/10/20 SP Ceftriaxone # 5 for K. pneumo PNA - 10/06/20 SP Zosyn #7/7 - 10/03/20 SP Vancomycin #3 - Monitor CBC and Temps - BCx (periheral and line) - 2d echo Thank you for this consult. [facility] will continue to follow Mr. Vargas while he in hospitalized. Subjective Allergies: Coded Allergies: No Known Allergies (Unverified , 09/13/20) Afebrile WBCs decreasing today 34 On Vent 30% O2 On Levophed Objective Last 24 Hour Vital Signs Date Time Temp Pulse Resp B/P (MAP) Pulse Ox O2 Delivery O2 Flow Rate FiO2 10/13/20 08:00 30 10/13/20 08:00 98.0 81 16 118/68 (85) 96 10/13/20 08:00 Mechanical Ventilator 10/13/20 07:15 81 15 30 10/13/20 07:00 118/80 10/13/20 07:00 94 18 127/84 (98) 10/13/20 06:30 79 19 127/74 (91) 10/13/20 06:30 95 36 10/13/20 06:00 127/74 10/13/20 06:00 94 18 132/79 (96) 10/13/20 05:30 86 16 130/74 (92) 10/13/20 05:00 89 18 131/77 (95) 10/13/20 05:00 144/77 10/13/20 04:30 96 23 104/58 (73) 97 10/13/20 04:00 98.3 86 20 118/73 (88) 96 10/13/20 04:00 104/71 10/13/20 04:00 30 10/13/20 04:00 89 10/13/20 04:00 Mechanical Ventilator 10/13/20 03:30 79 17 112/72 (85) 97 10/13/20 03:02 92 15 30 10/13/20 03:00 82 19 114/70 (85) 97 10/13/20 03:00 116/66 10/13/20 02:30 84 16 115/75 (88) 96 10/13/20 02:00 115/76 10/13/20 02:00 79 15 111/69 (83) 10/13/20 01:30 80 15 115/67 (83) 10/13/20 01:30 80 15 115/67 (83) 10/13/20 01:00 82 19 110/70 (83) 97 10/13/20 01:00 107/60 10/13/20 00:45 83 15 107/71 (83) 97 10/13/20 00:30 82 15 111/67 (82) 10/13/20 00:30 82 15 111/67 (82) 97 10/13/20 00:15 82 16 112/68 (83) 10/13/20 00:15 82 16 112/68 (83) 97 10/13/20 00:00 30 10/13/20 00:00 114/64 10/13/20 00:00 Mechanical Ventilator 10/13/20 00:00 98.5 80 17 111/71 (84) 97 10/13/20 00:00 98 10/13/20 00:00 80 17 111/71 (84) 10/12/20 23:45 81 14 107/60 (76) 97 10/12/20 23:30 80 17 116/71 (86) 97 10/12/20 23:18 82 14 30 10/12/20 23:15 79 16 114/70 (85) 97 10/12/20 23:00 83 21 110/70 (83) 97 10/12/20 23:00 116/60 10/12/20 22:45 80 17 119/76 (90) 97 10/12/20 22:30 73 14 124/80 (95) 96 10/12/20 22:24 104/64 10/12/20 22:15 80 17 114/72 (86) 96 10/12/20 22:00 104/56 10/12/20 22:00 76 20 107/65 (79) 10/12/20 21:45 92 17 88/57 (67) 10/12/20 21:40 85 18 93/58 (70) 10/12/20 21:35 93 18 84/44 (57) 10/12/20 21:30 90 18 86/58 (67) 10/12/20 21:15 88 18 98/55 (69) 10/12/20 21:00 104/67 10/12/20 21:00 74 17 104/69 (81) 99 10/12/20 20:45 82 17 82/53 (63) 10/12/20 20:30 86 18 78/48 (58) 10/12/20 20:15 99 20 91/59 (70) 10/12/20 20:00 30 10/12/20 20:00 Mechanical Ventilator 10/12/20 20:00 97.5 77 16 87/59 (68) 100 10/12/20 20:00 96/64 10/12/20 20:00 90 10/12/20 19:12 98 14 30 10/12/20 19:00 76 23 104/60 (75) 98 10/12/20 19:00 104/60 10/12/20 18:00 103/66 10/12/20 18:00 80 24 103/66 (78) 98 10/12/20 17:30 78 15 94/60 (71) 100 10/12/20 17:00 80 18 86/56 (66) 100 10/12/20 17:00 80 20 111/67 (82) 10/12/20 17:00 86/56 10/12/20 16:30 87 16 101/68 (79) 97 10/12/20 16:00 Mechanical Ventilator 10/12/20 16:00 87 10/12/20 16:00 98/61 10/12/20 16:00 97.4 82 33 98/61 (73) 98 10/12/20 16:00 30 10/12/20 15:30 88 31 103/67 (79) 98 10/12/20 15:22 100 16 30 10/12/20 15:00 92/56 10/12/20 15:00 72 37 92/56 (68) 99 10/12/20 14:30 74 31 89/57 (68) 100 10/12/20 14:00 73 39 98/62 (74) 100 10/12/20 14:00 98/62 10/12/20 13:30 83 42 102/65 (77) 99 10/12/20 13:00 13 93/59 (70) 99 10/12/20 13:00 93/59 10/12/20 12:30 88 13 104/65 (78) 99 10/12/20 12:00 30 10/12/20 12:00 Mechanical Ventilator 10/12/20 12:00 97.6 77 46 104/66 (79) 99 10/12/20 12:00 84 10/12/20 11:44 75 13 30 10/12/20 11:00 113/68 10/12/20 11:00 97 34 113/68 (83) 10/12/20 10:30 82 13 99/55 (70) 98 10/12/20 10:00 95/62 10/12/20 10:00 84 13 95/62 (73) 98 10/12/20 09:30 83 13 98/49 (65) 99 10/12/20 09:00 85 29 105/66 (79) 99 10/12/20 09:00 105/66 Height (Feet): 6 Height (Inches): 8.00 Weight (Pounds): 165 Gen: On Vent 30% O2 HEENT: NCAT, Intubated Pulm: RRR No accessory muscle use Abd: Soft, ND, + BS SKIN: Exposed skin normal in color no rash noted Microbiology Date/Time Source Procedure Growth Status 10/11/20 18:05 Stool Clostridium difficile Toxin Assay - Final Complete 10/11/20 12:40 Blood Blood Culture - Preliminary NO GROWTH AFTER 24 HOURS Resulted 10/11/20 12:30 Blood Blood Culture - Preliminary NO GROWTH AFTER 24 HOURS Resulted Laboratory Tests Test 10/13/20 04:00 White Blood Count 33.9 K/UL (4.8-10.8) *H Red Blood Count 2.98 M/UL (4.70-6.10) L Hemoglobin 9.4 G/DL (14.2-18.0) L Hematocrit 30.0 % (42.0-52.0) L Mean Corpuscular Volume 101 FL (80-99) H Mean Corpuscular Hemoglobin 31.6 PG (27.0-31.0) H Mean Corpuscular Hemoglobin Concent 31.3 G/DL (32.0-36.0) L Red Cell Distribution Width 21.0 % (11.6-14.8) H Platelet Count 103 K/UL (150-450) #L Mean Platelet Volume 9.9 FL (6.5-10.1) Neutrophils (%) (Auto) % (45.0-75.0) Lymphocytes (%) (Auto) % (20.0-45.0) Monocytes (%) (Auto) % (1.0-10.0) Eosinophils (%) (Auto) % (0.0-3.0) Basophils (%) (Auto) % (0.0-2.0) Neutrophils % (Manual) Pending Lymphocytes % (Manual) Pending Platelet Estimate Pending Platelet Morphology Pending Sodium Level 142 MMOL/L (136-145) Potassium Level 3.0 MMOL/L (3.5-5.1) L Chloride Level 105 MMOL/L (98-107) Carbon Dioxide Level 22 MMOL/L (21-32) Anion Gap 15 mmol/L (5-15) Blood Urea Nitrogen 37 mg/dL (7-18) H Creatinine 4.5 MG/DL (0.55-1.30) H Estimat Glomerular Filtration Rate 15.5 mL/min (>60) Glucose Level 261 MG/DL (74-106) H Calcium Level 9.2 MG/DL (8.5-10.1) Phosphorus Level 3.5 MG/DL (2.5-4.9) Magnesium Level 1.9 MG/DL (1.8-2.4) Total Bilirubin 0.7 MG/DL (0.2-1.0) Aspartate Amino Transf (AST/SGOT) 54 U/L (15-37) H Alanine Aminotransferase (ALT/SGPT) 78 U/L (12-78) Alkaline Phosphatase 237 U/L (46-116) H C-Reactive Protein, Quantitative < 0.4 mg/dL (0.00-0.90) Pro-B-Type Natriuretic Peptide 80303 pg/mL (0-125) H Total Protein 5.5 G/DL (6.4-8.2) L Albumin 2.4 G/DL (3.4-5.0) L Globulin 3.1 g/dL Albumin/Globulin Ratio 0.8 (1.0-2.7) L Random Vancomycin Level 20.8 ug/mL Current Medications Medications (Trade) Dose Ordered Sig/Alfredo Route PRN Reason Start Time Stop Time Status Last Admin Dose Admin Acetaminophen (Tylenol) 650 mg EVERY 6 HOURS PRN NG Temp >100.5 09/30/20 02:30 10/30/20 02:29 Chlorhexidine Gluconate (Babita-Hex 2%) 1 applic DAILY@2000 TOPIC 09/30/20 20:00 12/29/20 19:59 10/12/20 21:06 Dextrose (Dextrose 50%) 25 ml Q30M PRN IV Hypoglycemia 09/30/20 02:30 12/29/20 02:29 Dextrose (Dextrose 50%) 50 ml Q30M PRN IV Hypoglycemia 09/30/20 02:30 12/29/20 02:29 Hydrocortisone (Solu-CORTEF) 100 mg EVERY 8 HOURS IV 09/30/20 14:00 12/29/20 13:59 10/13/20 05:44 Levetiracetam 100 ml @ 400 mls/hr Q12HR IVPB 10/12/20 21:00 01/10/21 20:59 10/12/20 21:07 Meropenem 500 mg/ Sodium Chloride 55 ml @ 110 mls/hr EVERY 12 HOURS IVPB 10/11/20 10:00 10/16/20 09:59 10/12/20 21:08 Metoclopramide HCl (Reglan) 5 mg Q6H IVP 10/10/20 12:00 11/09/20 11:59 10/13/20 05:44 Norepinephrine Bitartrate 8 mg/ Dextrose 250 ml @ 0 mls/hr Q24H PRN IV DIRECTED 10/10/20 14:17 10/13/20 14:16 10/12/20 22:24 Pantoprazole (Protonix) 40 mg EVERY 12 HOURS IVP 10/07/20 21:00 11/06/20 20:59 10/12/20 21:06 Vancomycin HCl ([facility] pharmacy to dose) 1 ea DAILY PRN MISC Per rx protocol 10/11/20 09:00 11/10/20 08:59 Yoel Ricketts MD Oct 13, 2020 08:15
[2020-10-13] MEDS: Pantoprazole Inj IVP SCH ×2 (08:19→20:51)
[2020-10-13] MEDS: Meropenem 500 MG in NS 55 ML IVPB SCH ×2 (08:19→20:56)
--- NOTE | 2020-10-13 08:47 | NUR ---
RD ASSESSMENT & RECOMMENDATIONS SEE CARE ACTIVITY FOR COMPLETE ASSESSMENT DAILY ESTIMATED NEEDS: Needs based on Critical care, ARF + HD 74.2kg 22-28 kcals/kg 8621-1738 total kcals now w/ HD (1.2-1.8) g protein/kg 89-133 g total protein fluid per MD, on HD NUTRITION DIAGNOSIS: Swallowing difficulty r/t respiratory arrest as evidenced by pt intubated, on pressor support, ICU status, on NGT feeds. CURRENT TF:Nepro @ 40ml/hr x 24 hrs ENTERAL NUTRITION RECOMMENDATIONS: NEPRO @ 40ml/hr x24 hrs +Prosource 1pkt QD to provide 960ml, 1728kcal, 78g +11 prot, 698ml free water - W/ hemodynamic stability, increase goal rate to 40ml/hr x 24 hrs - Add Prosource 1pkt QD for additional 11g prot - HOB over 30 degrees/ water flush per MD ----> If hemodynamically unstable, rec trophic feeds of Nepro @10ml/hr to maintain gut integrity. ADDITIONAL RECOMMENDATIONS: 1) Recalibrate bed scale-> daily wts up from 75kg-> 90.5kg 2) Monitor for continuity of HD 3) Monitor lytes- K low 4) Add NISS for elev BGs, pt on steroidal meds Add bedside BG checks for glycemic monitoring and control 5) Monitor hemodynamic stability: NE now @15mcg .
[2020-10-13] MEDS: Norepinephrine Bitartrate 16 MG in D5W 500ml 484 ML IV PRN (09:16)
--- NOTE | 2020-10-13 09:16 | NUR ---
NURSE NOTES: Decreased levophed to 10 mcg from 12 mcg. Blood pressure within normal limits at this time.
[2020-10-13] MEDS: levETIRAcetam 1,000mg/NS100ml 100 ML IVPB SCH ×2 (09:27→20:56)
[2020-10-13 10:43] LABS: INR 1.4 (0.9-1.1)
--- NOTE | 2020-10-13 10:45 | NUR ---
NURSE NOTES: BHARGAVI Solano at bedside. Aware of current vent settings. No new order at this time.Will continue plan of care.
[2020-10-13] MEDS ORDERED: Phytonadione 10 mg/mL 1ml amp SUBQ SCH (11:45)
--- NOTE | 2020-10-13 11:50 | NUR ---
NURSE NOTES: Paracentesis started at bedside by Dr. Phillips. IR Doctor aware of today's PT and INR level, he said that it's ok.
--- NOTE | 2020-10-13 11:59 | Pre-Procedure Note/Attestation ---
Pre-Procedure Note/Attestation Complete Prior to Procedure Planned Procedure: not applicable Procedure Narrative: us guided paracentesis Indications for Procedure Pre-Operative Diagnosis: ascites Attestation informed consent obtained from family by ICU staff, confirmed prior to procedure Frandy Phillips M.D. Oct 13, 2020 11:59
--- NOTE | 2020-10-13 12:21 | Neurology Progress Note ---
Interim History Interim History ROS Limited/Unobtainable: Yes Events: s/p paracentesis remains comatose Objective Physical Exam Last Vital Signs Date Time Temp Pulse Resp B/P (MAP) Pulse Ox O2 Delivery O2 Flow Rate FiO2 10/13/20 12:00 79 10/13/20 12:00 Mechanical Ventilator 10/13/20 12:00 30 10/13/20 12:00 97.5 16 109/64 (79) 98 Laboratory Tests Test 10/13/20 04:00 10/13/20 09:30 White Blood Count 33.9 K/UL (4.8-10.8) *H Red Blood Count 2.98 M/UL (4.70-6.10) L Hemoglobin 9.4 G/DL (14.2-18.0) L Hematocrit 30.0 % (42.0-52.0) L Mean Corpuscular Volume 101 FL (80-99) H Mean Corpuscular Hemoglobin 31.6 PG (27.0-31.0) H Mean Corpuscular Hemoglobin Concent 31.3 G/DL (32.0-36.0) L Red Cell Distribution Width 21.0 % (11.6-14.8) H Platelet Count 103 K/UL (150-450) #L Mean Platelet Volume 9.9 FL (6.5-10.1) Neutrophils (%) (Auto) % (45.0-75.0) Lymphocytes (%) (Auto) % (20.0-45.0) Monocytes (%) (Auto) % (1.0-10.0) Eosinophils (%) (Auto) % (0.0-3.0) Basophils (%) (Auto) % (0.0-2.0) Differential Total Cells Counted 100 Neutrophils % (Manual) 92 % (45-75) H Lymphocytes % (Manual) 2 % (20-45) L Monocytes % (Manual) 6 % (1-10) Eosinophils % (Manual) 0 % (0-3) Basophils % (Manual) 0 % (0-2) Band Neutrophils 0 % (0-8) Nucleated Red Blood Cells 2 /100 WBC Platelet Estimate Decreased L Platelet Morphology Normal Hypochromasia 1+ Anisocytosis 3+ Macrocytosis Occasional Schistocytes 1+ Sodium Level 142 MMOL/L (136-145) Potassium Level 3.0 MMOL/L (3.5-5.1) L Chloride Level 105 MMOL/L (98-107) Carbon Dioxide Level 22 MMOL/L (21-32) Anion Gap 15 mmol/L (5-15) Blood Urea Nitrogen 37 mg/dL (7-18) H Creatinine 4.5 MG/DL (0.55-1.30) H Estimat Glomerular Filtration Rate 15.5 mL/min (>60) Glucose Level 261 MG/DL (74-106) H Calcium Level 9.2 MG/DL (8.5-10.1) Phosphorus Level 3.5 MG/DL (2.5-4.9) Magnesium Level 1.9 MG/DL (1.8-2.4) Total Bilirubin 0.7 MG/DL (0.2-1.0) Aspartate Amino Transf (AST/SGOT) 54 U/L (15-37) H Alanine Aminotransferase (ALT/SGPT) 78 U/L (12-78) Alkaline Phosphatase 237 U/L (46-116) H C-Reactive Protein, Quantitative < 0.4 mg/dL (0.00-0.90) Pro-B-Type Natriuretic Peptide 61103 pg/mL (0-125) H Total Protein 5.5 G/DL (6.4-8.2) L Albumin 2.4 G/DL (3.4-5.0) L Globulin 3.1 g/dL Albumin/Globulin Ratio 0.8 (1.0-2.7) L Random Vancomycin Level 20.8 ug/mL Prothrombin Time 15.2 SEC (9.30-11.50) H Prothromb Time International Ratio 1.4 (0.9-1.1) H Activated Partial Thromboplast Time 32 SEC (23-33) Neurologic Exam Objective Physical Exam: Limited due to patients status unresponsive comatose, Pupils are sluggish, pupils equal reactive to light corneal reflex absent, gag reflex absent facial symmetric motor: spontaneous movement in left hand, sensory responses to suctioning thru trach not to pain. Impression/Recommendations Status: unchanged Diagnostic Impression Imaging: EEG reviewed CT Head: No evidence of acute intracranial hemorrhage, mass effect or cortical edema. MRI recommended for more sensitive evaluation as clinically indicated. Atrophy and nonspecific periventricular hypoattenuation suggestive of chronic ischemic microvascular changes. Assessment And Rec's 1. Anoxic Encephalopathy --> EEG consistent with seizure activity --> S/p recent CODE Blue and intubation --> CT head reviewed as above --> chances of recovery are small, pt has a poor prognosis. Discussed with brother Brayan. 2. Abnormal EEG --> Possible subclinical seizure activity, it is not definitive --> Will start patient on presumptive seizure medication, Agree to continue with Keppra will increase to 1000mg IV BID 3. Acute hypoxemic respiratory failure --> s/p intubation on vent 4. Questionable Pneumonia vs other ---> on abx --> Covid Ag is NEGATIVE, PCR not detected 5. Anemia 6. FTT --> Supportive care 7. CKD --> HD 8. Ascites --> s/p paracentesis Thank you for allowing us to participate in patient's care, plan of care was discussed with Dr. Jose Armando Camarena who agrees and has reviewed EEG results. Stacy Hinds NP Oct 13, 2020 12:21
--- NOTE | 2020-10-13 12:23 | Internal Med Progress Note ---
Subjective Date of Service: Oct 13, 2020 Physician Name Semaj Kay Attending Physician Ken Hutton MD Current Medications Medications (Trade) Dose Ordered Sig/Alfredo Route PRN Reason Start Time Stop Time Status Last Admin Dose Admin Acetaminophen (Tylenol) 650 mg EVERY 6 HOURS PRN NG Temp >100.5 09/30/20 02:30 10/30/20 02:29 Chlorhexidine Gluconate (Babita-Hex 2%) 1 applic DAILY@2000 TOPIC 09/30/20 20:00 12/29/20 19:59 10/12/20 21:06 Dextrose (Dextrose 50%) 25 ml Q30M PRN IV Hypoglycemia 09/30/20 02:30 12/29/20 02:29 Dextrose (Dextrose 50%) 50 ml Q30M PRN IV Hypoglycemia 09/30/20 02:30 12/29/20 02:29 Hydrocortisone (Solu-CORTEF) 100 mg EVERY 8 HOURS IV 09/30/20 14:00 12/29/20 13:59 10/13/20 05:44 Levetiracetam 100 ml @ 400 mls/hr Q12HR IVPB 10/12/20 21:00 01/10/21 20:59 10/13/20 09:27 Meropenem 500 mg/ Sodium Chloride 55 ml @ 110 mls/hr EVERY 12 HOURS IVPB 10/11/20 10:00 10/16/20 09:59 10/13/20 08:19 Metoclopramide HCl (Reglan) 5 mg Q6H IVP 10/10/20 12:00 11/09/20 11:59 10/13/20 11:39 Norepinephrine Bitartrate 16 mg/ Dextrose 500 ml @ 0 mls/hr Q24H PRN IV . 10/13/20 08:43 10/16/20 08:42 10/13/20 09:16 Pantoprazole (Protonix) 40 mg EVERY 12 HOURS IVP 10/07/20 21:00 11/06/20 20:59 10/13/20 08:19 Phytonadione (Vitamin K) 10 mg ONCE SUBQ 10/13/20 11:45 10/13/20 12:45 10/13/20 11:39 Potassium Chloride (K-Dur) 20 meq EVERY 12 HOURS NG 10/13/20 21:00 01/11/21 17:59 Vancomycin HCl (Vanco pharmacy to dose) 1 ea DAILY PRN MISC Per rx protocol 10/11/20 09:00 11/10/20 08:59 Allergies: Coded Allergies: No Known Allergies (Unverified , 09/13/20) ROS Limited/Unobtainable: Yes Subjective 75 YO M with recent diagnosis of thalassemia admitted with altered mental status. S/P cardiopulmonary arrest 09/29/20. Intubated and sedated. ICU. Cover for Int Sudeep-Dr Hutton Objective Last Vital Signs Date Time Temp Pulse Resp B/P (MAP) Pulse Ox O2 Delivery O2 Flow Rate FiO2 10/13/20 12:00 79 10/13/20 12:00 Mechanical Ventilator 10/13/20 12:00 30 10/13/20 12:00 97.5 16 109/64 (79) 98 Laboratory Tests Test 10/13/20 04:00 10/13/20 09:30 White Blood Count 33.9 K/UL (4.8-10.8) *H Red Blood Count 2.98 M/UL (4.70-6.10) L Hemoglobin 9.4 G/DL (14.2-18.0) L Hematocrit 30.0 % (42.0-52.0) L Mean Corpuscular Volume 101 FL (80-99) H Mean Corpuscular Hemoglobin 31.6 PG (27.0-31.0) H Mean Corpuscular Hemoglobin Concent 31.3 G/DL (32.0-36.0) L Red Cell Distribution Width 21.0 % (11.6-14.8) H Platelet Count 103 K/UL (150-450) #L Mean Platelet Volume 9.9 FL (6.5-10.1) Neutrophils (%) (Auto) % (45.0-75.0) Lymphocytes (%) (Auto) % (20.0-45.0) Monocytes (%) (Auto) % (1.0-10.0) Eosinophils (%) (Auto) % (0.0-3.0) Basophils (%) (Auto) % (0.0-2.0) Differential Total Cells Counted 100 Neutrophils % (Manual) 92 % (45-75) H Lymphocytes % (Manual) 2 % (20-45) L Monocytes % (Manual) 6 % (1-10) Eosinophils % (Manual) 0 % (0-3) Basophils % (Manual) 0 % (0-2) Band Neutrophils 0 % (0-8) Nucleated Red Blood Cells 2 /100 WBC Platelet Estimate Decreased L Platelet Morphology Normal Hypochromasia 1+ Anisocytosis 3+ Macrocytosis Occasional Schistocytes 1+ Sodium Level 142 MMOL/L (136-145) Potassium Level 3.0 MMOL/L (3.5-5.1) L Chloride Level 105 MMOL/L (98-107) Carbon Dioxide Level 22 MMOL/L (21-32) Anion Gap 15 mmol/L (5-15) Blood Urea Nitrogen 37 mg/dL (7-18) H Creatinine 4.5 MG/DL (0.55-1.30) H Estimat Glomerular Filtration Rate 15.5 mL/min (>60) Glucose Level 261 MG/DL (74-106) H Calcium Level 9.2 MG/DL (8.5-10.1) Phosphorus Level 3.5 MG/DL (2.5-4.9) Magnesium Level 1.9 MG/DL (1.8-2.4) Total Bilirubin 0.7 MG/DL (0.2-1.0) Aspartate Amino Transf (AST/SGOT) 54 U/L (15-37) H Alanine Aminotransferase (ALT/SGPT) 78 U/L (12-78) Alkaline Phosphatase 237 U/L (46-116) H C-Reactive Protein, Quantitative < 0.4 mg/dL (0.00-0.90) Pro-B-Type Natriuretic Peptide 54862 pg/mL (0-125) H Total Protein 5.5 G/DL (6.4-8.2) L Albumin 2.4 G/DL (3.4-5.0) L Globulin 3.1 g/dL Albumin/Globulin Ratio 0.8 (1.0-2.7) L Random Vancomycin Level 20.8 ug/mL Prothrombin Time 15.2 SEC (9.30-11.50) H Prothromb Time International Ratio 1.4 (0.9-1.1) H Activated Partial Thromboplast Time 32 SEC (23-33) Microbiology Date/Time Source Procedure Growth Status 10/11/20 18:05 Stool Clostridium difficile Toxin Assay - Final Complete 10/11/20 12:40 Blood Blood Culture - Preliminary NO GROWTH AFTER 24 HOURS Resulted 10/11/20 12:30 Blood Blood Culture - Preliminary NO GROWTH AFTER 24 HOURS Resulted Intake and Output 10/12/20 10/13/20 19:00 07:00 Intake Total 537.50 ml 1319.125 ml Output Total 20 ml 0 ml Balance 517.50 ml 1319.125 ml Free Water 100 ml IV Total 297.50 ml 459.125 ml Tube Feeding 240 ml 560 ml Blood Product 200 ml Output Urine Total 20 ml 0 ml # Bowel Movements 101 6 Objective Physical Exam General Appearance: lethargic Lines, tubes and drains: central line - R IJ HEENT: normocephalic, atraumatic, other - Pupils are 2 mm and sluggish reaction to light. Neck: non-tender Respiratory/Chest: Mech vent; lungs with rhonchi and wheezes bilat Cardiovascular/Chest: normal rate Abdomen: no mass, hypoactive bowel sounds Extremities: non-pitting Neurologic: unresponsiveness Assessment/Plan Assessment/Plan Assessment/Plan Status: unchanged Assessment/Plan: 75 y/o Male admitted to the Hospital with; # AMS # Acute encephalopathy # Acute hypoxemic respiratory failure # Respiratory acidosis. ABG monitoring. Intubation in the ER Pulmonary/ICU wtih Dr. Benavidez Renal consultation with Dr. Estrada. Add CT head wo contrast to rule out bleed vs other completing today. On route. EEG ordered today as no prior order found. Concern for anoxic brain injury. Seizure disorder # Pneumonia vs other ID consultation with Dr. Ricketts Zosyn and Vancomycin Follow up lactate and wbc, cultures Covid Ag is NEGATIVE, PCR NEG Leukocytosis # Thalassemia Recent BM biopsy which was negative per family report. [place] MR number is [id number] ( MR not linked with [facility] database ) Supportive care Consider Hematology follow up as needed Continue keppra per neurology=Dr Carranza # FTT - anorexia and weight loss Supportive care RD consult in the next 2 days for nutrition DNR DVT ppx GI ppx R IJ line Replace KCL IV abx=vanco and meroperosendo, Semaj Kay MD Oct 13, 2020 12:23
--- NOTE | 2020-10-13 12:35 | Pulmonology Progress Note ---
Subjective ROS Limited/Unobtainable: Yes Interval Events: scheduled for paracentesis today Constitutional: Reports: no symptoms HEENT: Repors: no symptoms Respiratory: Reports: no symptoms Cardiovascular: Reports: no symptoms Gastrointestinal/Abdominal: Reports: no symptoms Genitourinary: Reports: no symptoms Allergies: Coded Allergies: No Known Allergies (Unverified , 09/13/20) All Systems: reviewed and negative except above Objective Last 24 Hour Vital Signs Date Time Temp Pulse Resp B/P (MAP) Pulse Ox O2 Delivery O2 Flow Rate FiO2 10/13/20 12:00 79 10/13/20 12:00 Mechanical Ventilator 10/13/20 12:00 30 10/13/20 12:00 97.5 89 16 109/64 (79) 98 10/13/20 12:00 109/64 10/13/20 11:30 96 16 108/64 (79) 98 10/13/20 11:00 96/61 10/13/20 11:00 86 15 96/61 (73) 98 10/13/20 10:45 100 16 101/61 (74) 98 10/13/20 10:30 94 16 100/60 (73) 98 10/13/20 10:15 91 15 105/60 (75) 97 10/13/20 10:00 110/72 10/13/20 10:00 129 22 110/72 (85) 98 10/13/20 09:45 97 16 105/64 (78) 10/13/20 09:30 104 17 98/69 (79) 10/13/20 09:16 137/80 10/13/20 09:15 105 18 137/80 (99) 10/13/20 09:00 72 24 110/64 (79) 10/13/20 08:00 30 10/13/20 08:00 98.0 81 16 118/68 (85) 96 10/13/20 08:00 Mechanical Ventilator 10/13/20 07:32 84 10/13/20 07:15 81 15 30 10/13/20 07:00 118/80 10/13/20 07:00 94 18 127/84 (98) 10/13/20 06:30 79 19 127/74 (91) 10/13/20 06:30 95 36 10/13/20 06:00 127/74 10/13/20 06:00 94 18 132/79 (96) 10/13/20 05:30 86 16 130/74 (92) 10/13/20 05:00 89 18 131/77 (95) 10/13/20 05:00 144/77 10/13/20 04:30 96 23 104/58 (73) 97 10/13/20 04:00 98.3 86 20 118/73 (88) 96 10/13/20 04:00 104/71 10/13/20 04:00 30 10/13/20 04:00 89 10/13/20 04:00 Mechanical Ventilator 10/13/20 03:30 79 17 112/72 (85) 97 10/13/20 03:02 92 15 30 10/13/20 03:00 82 19 114/70 (85) 97 10/13/20 03:00 116/66 10/13/20 02:30 84 16 115/75 (88) 96 10/13/20 02:00 115/76 10/13/20 02:00 79 15 111/69 (83) 10/13/20 01:30 80 15 115/67 (83) 10/13/20 01:30 80 15 115/67 (83) 10/13/20 01:00 82 19 110/70 (83) 97 10/13/20 01:00 107/60 10/13/20 00:45 83 15 107/71 (83) 97 10/13/20 00:30 82 15 111/67 (82) 10/13/20 00:30 82 15 111/67 (82) 97 10/13/20 00:15 82 16 112/68 (83) 10/13/20 00:15 82 16 112/68 (83) 97 10/13/20 00:00 30 10/13/20 00:00 114/64 10/13/20 00:00 Mechanical Ventilator 10/13/20 00:00 98.5 80 17 111/71 (84) 97 10/13/20 00:00 98 10/13/20 00:00 80 17 111/71 (84) 10/12/20 23:45 81 14 107/60 (76) 97 10/12/20 23:30 80 17 116/71 (86) 97 10/12/20 23:18 82 14 30 10/12/20 23:15 79 16 114/70 (85) 97 10/12/20 23:00 83 21 110/70 (83) 97 10/12/20 23:00 116/60 10/12/20 22:45 80 17 119/76 (90) 97 10/12/20 22:30 73 14 124/80 (95) 96 10/12/20 22:24 104/64 10/12/20 22:15 80 17 114/72 (86) 96 10/12/20 22:00 104/56 10/12/20 22:00 76 20 107/65 (79) 10/12/20 21:45 92 17 88/57 (67) 10/12/20 21:40 85 18 93/58 (70) 10/12/20 21:35 93 18 84/44 (57) 10/12/20 21:30 90 18 86/58 (67) 10/12/20 21:15 88 18 98/55 (69) 10/12/20 21:00 104/67 10/12/20 21:00 74 17 104/69 (81) 99 10/12/20 20:45 82 17 82/53 (63) 10/12/20 20:30 86 18 78/48 (58) 10/12/20 20:15 99 20 91/59 (70) 10/12/20 20:00 30 10/12/20 20:00 Mechanical Ventilator 10/12/20 20:00 97.5 77 16 87/59 (68) 100 10/12/20 20:00 96/64 10/12/20 20:00 90 10/12/20 19:12 98 14 30 10/12/20 19:00 76 23 104/60 (75) 98 10/12/20 19:00 104/60 10/12/20 18:00 103/66 10/12/20 18:00 80 24 103/66 (78) 98 10/12/20 17:30 78 15 94/60 (71) 100 10/12/20 17:00 80 18 86/56 (66) 100 10/12/20 17:00 80 20 111/67 (82) 10/12/20 17:00 86/56 10/12/20 16:30 87 16 101/68 (79) 97 10/12/20 16:00 Mechanical Ventilator 10/12/20 16:00 87 10/12/20 16:00 98/61 10/12/20 16:00 97.4 82 33 98/61 (73) 98 10/12/20 16:00 30 10/12/20 15:30 88 31 103/67 (79) 98 10/12/20 15:22 100 16 30 10/12/20 15:00 92/56 10/12/20 15:00 72 37 92/56 (68) 99 10/12/20 14:30 74 31 89/57 (68) 100 10/12/20 14:00 73 39 98/62 (74) 100 10/12/20 14:00 98/62 10/12/20 13:30 83 42 102/65 (77) 99 10/12/20 13:00 13 93/59 (70) 99 10/12/20 13:00 93/59 Intake and Output 10/12/20 10/13/20 19:00 07:00 Intake Total 537.50 ml 1319.125 ml Output Total 20 ml 0 ml Balance 517.50 ml 1319.125 ml Free Water 100 ml IV Total 297.50 ml 459.125 ml Tube Feeding 240 ml 560 ml Blood Product 200 ml Output Urine Total 20 ml 0 ml # Bowel Movements 101 6 General Appearance: no acute distress HEENT: normocephalic Respiratory: chest wall non-tender Cardiovascular: normal peripheral pulses Abdomen: normal bowel sounds Neurologic: unresponsiveness Microbiology Date/Time Source Procedure Growth Status 10/11/20 18:05 Stool Clostridium difficile Toxin Assay - Final Complete 10/11/20 12:40 Blood Blood Culture - Preliminary NO GROWTH AFTER 24 HOURS Resulted 10/11/20 12:30 Blood Blood Culture - Preliminary NO GROWTH AFTER 24 HOURS Resulted Laboratory Tests 10/13/20 04:00: White Blood Count 33.9*H, Red Blood Count 2.98L, Hemoglobin 9.4L, Hematocrit 30.0L, Mean Corpuscular Volume 101H, Mean Corpuscular Hemoglobin 31.6H, Mean Corpuscular Hemoglobin Concent 31.3L, Red Cell Distribution Width 21.0H, Platelet Count 103#L, Mean Platelet Volume 9.9, Neutrophils (%) (Auto) , Lymphocytes (%) (Auto) , Monocytes (%) (Auto) , Eosinophils (%) (Auto) , Basophils (%) (Auto) , Differential Total Cells Counted 100, Neutrophils % (Manual) 92H, Lymphocytes % (Manual) 2L, Monocytes % (Manual) 6, Eosinophils % (Manual) 0, Basophils % (Manual) 0, Band Neutrophils 0, Nucleated Red Blood Cells 2, Platelet Estimate DecreasedL, Platelet Morphology Normal, Hypochromasia 1+, Anisocytosis 3+, Macrocytosis Occasional, Schistocytes 1+, Sodium Level 142, Potassium Level 3.0L, Chloride Level 105, Carbon Dioxide Level 22, Anion Gap 15, Blood Urea Nitrogen 37H, Creatinine 4.5H, Estimat Glomerular Filtration Rate 15.5, Glucose Level 261H, Calcium Level 9.2, Phosphorus Level 3.5, Magnesium Level 1.9, Total Bilirubin 0.7, Aspartate Amino Transf (AST/SGOT) 54H, Alanine Aminotransferase (ALT/SGPT) 78, Alkaline Phosphatase 237H, C-Reactive Protein, Quantitative < 0.4, Pro-B-Type Natriuretic Peptide 07039P, Total Protein 5.5L, Albumin 2.4L, Globulin 3.1, Albumin/Globulin Ratio 0.8L, Random Vancomycin Level 20.8 10/13/20 09:30: Prothrombin Time 15.2H, Prothromb Time International Ratio 1.4H, Activated Partial Thromboplast Time 32 10/13/20 11:55: Body Fluid Source [Pending], Body Fluid Volume [Pending], Body Fluid Appearance [Pending], Body Fluid RBC [Pending], Body Fluid Total Nucleated Cells [Pending], Body Fluid Comment [Pending] Current Medications Medications (Trade) Dose Ordered Sig/Alfredo Route PRN Reason Start Time Stop Time Status Last Admin Dose Admin Acetaminophen (Tylenol) 650 mg EVERY 6 HOURS PRN NG Temp >100.5 09/30/20 02:30 10/30/20 02:29 Chlorhexidine Gluconate (Babita-Hex 2%) 1 applic DAILY@1999 TOPIC 09/30/20 20:00 12/29/20 19:59 10/12/20 21:06 Dextrose (Dextrose 50%) 25 ml Q30M PRN IV Hypoglycemia 09/30/20 02:30 12/29/20 02:29 Dextrose (Dextrose 50%) 50 ml Q30M PRN IV Hypoglycemia 09/30/20 02:30 12/29/20 02:29 Hydrocortisone (Solu-CORTEF) 100 mg EVERY 8 HOURS IV 09/30/20 14:00 12/29/20 13:59 10/13/20 05:44 Levetiracetam 100 ml @ 400 mls/hr Q12HR IVPB 10/12/20 21:00 01/10/21 20:59 10/13/20 09:27 Meropenem 500 mg/ Sodium Chloride 55 ml @ 110 mls/hr EVERY 12 HOURS IVPB 10/11/20 10:00 10/16/20 09:59 10/13/20 08:19 Metoclopramide HCl (Reglan) 5 mg Q6H IVP 10/10/20 12:00 11/09/20 11:59 10/13/20 11:39 Norepinephrine Bitartrate 16 mg/ Dextrose 500 ml @ 0 mls/hr Q24H PRN IV . 10/13/20 08:43 10/16/20 08:42 10/13/20 09:16 Pantoprazole (Protonix) 40 mg EVERY 12 HOURS IVP 10/07/20 21:00 11/06/20 20:59 10/13/20 08:19 Phytonadione (Vitamin K) 10 mg ONCE SUBQ 10/13/20 11:45 10/13/20 12:45 10/13/20 11:39 Potassium Chloride (K-Dur) 20 meq EVERY 12 HOURS NG 10/13/20 21:00 01/11/21 17:59 Vancomycin HCl ([facility] pharmacy to dose) 1 ea DAILY PRN MISC Per rx protocol 10/11/20 09:00 11/10/20 08:59 Assessment/Plan Assessment/Plan 1. Respiratory failure. 2. Multiple medical problems consisting of hypertension, thalassemia, chronic pancreatitis, GERD, neuropathy, and depression. 3. Shock; on pressors 4. Acute renal failure and metabolic acidosis 5. Lactic acidemia 6. AMS; CT brain negative 7. Thrombocytopenia DISCUSSION: Code status needs to be discussed with family. Pt is now DNR. Currently the patient is intubated. s/p dialysis Now FiO2 30%, PEEP 5 -> has failed weaning trials Continue IV fluids. Pressors prn DVT and GI prophylaxis. Broad-spectrum antibiotics. We will follow carefully. Bicarb supplementation ABG adequate Discussed with family He remains DNR but intubation OK Will not extubate given poor mental status and pressor usage The care of this patient was discussed with my supervising physician Time spent for this encounter was approximately 31 minutes Dioni Coats Oct 13, 2020 12:35
--- NOTE | 2020-10-13 12:35 | NUR ---
NURSE NOTES: Neurologist/Dr. Camarena at bedside performing assessment.
--- NOTE | 2020-10-13 12:57 | Diagnostic Imaging Report ---
Indications: Ascites Technique: Ultrasound used to localize optimal puncture site. Sterile prepping and draping the floor. Local anesthesia with 1% lidocaine. Under real-time ultrasound guidance, puncture peritoneal space using paracentesis needle. Stylet removed. Catheter placed to vacuum bottle suction. Total 1200 mL of fluid aspirated. Patient tolerated procedure well, without immediate complication. Findings: Followup sonography demonstrates complete resolution of peritoneal fluid. Impression: Successful ultrasound-guided paracentesis, yielding 1200 mL of fluid
--- NOTE | 2020-10-13 13:42 | Nephrology Progress Note ---
Assessment/Plan Problem List: (1) COURTNEY (acute kidney injury) (2) Cardiopulmonary arrest (3) Respiratory failure (4) Septic shock Assessment Acute renal failure Septic shock Acute respiratory failure CODE STATUS now DNR Plan October 13: Labs reviewed. Discussed with KIRBY Sheldon.. Low potassium addressed. Dialyzed yesterday. Dialysis as needed. Weaning attempts versus tracheostomy per pulmonary. October 12: Labs reviewed. Discussed with KIRBY Tarango. Leukocytosis persists. Due for dialysis today. Patient DNR however remains intubated on ventilator. FiO2 30%. Continue per consultants. Continue dialysis as needed. October 11: Labs reviewed. Discussed with KIRBY Tarango. Leukocytosis persists. Low potassium addressed. Will order dialysis tomorrow. Continue per consultants. October 10: Patient was dialyzed yesterday. Today's labs reviewed. Abnormal electrolytes addressed. Medication list reviewed. Discussed with RN. Continue per consultants. October 09: Patient due for dialysis today. IV fluids stopped. Patient DNR. Abnormal electrolyte and the dialysis bath adjusted accordingly. Continue per consultants. October 08: Patient was last dialyzed yesterday. Intubated. DNR. Meds and labs reviewed. Potassium supplement given. Continue to monitor renal parameters and dialysis as needed. Patient remains only coanuric. October 07: Patient was dialyzed yesterday. Labs reviewed. Platelets low. Oozing from the site of the dialysis catheter. On low-dose of pressors. Will dialyze today. Will change Pepcid to Protonix IV. Will give DDAVP 50 mcg once. Discussed with KIRBY Tarango. October 06: Status unchanged. Seen in ICU. Discussed with RN. Dialysis catheter and dialysis procedure has not yet been done. Radiology to arrange for catheter insertion today followed by dialysis. Labs reviewed. Medication list reviewed. October 05: Status quo. Labs reviewed. Serum creatinine creeping up. Patient hemodynamically more stable today than a few days ago. Called brother and he is agreeable for a trial of dialysis treatment with the hope to reverse the acute component of the renal failure. Nontunneled catheter placement ordered. Dialysis ordered. Continue to monitor renal parameters. Medication list review ed. Discussed with RN and charge nurse. October 04: Status quo. Intubated on ventilator. Labs reviewed. Serum creatinine is plateauing. Trial of Zaroxolyn and 25% albumin infusion given. Abnormal electrolytes addressed. Continue as is. October 03: Continues to be on 6 mics of Levophed. Urine output 350 cc past 24 hours. No urine output since this morning. Labs reviewed. Discussed with KIRBY Diallo. Albumin bolus given. Zaroxolyn 1 dose ordered. Serum creatinine appears to be leveling off. Continue to monitor renal parameters. Patient DNR. October 02: Remains on low-dose pressors today almost anuric. Discussed with KIRBY Shook. Labs reviewed. Medication list reviewed. Trial of albumin and Lasix. Continue to monitor renal parameters. Patient DNR. FiO2 40% October 01: Patient clinically more stable. Discussed with KIRBY Tarango. Patient off pressors. ABG improved. Serum creatinine worse. Will start the patient on Bicitra and allopurinol through NG tube. Continue to monitor renal parameters. Per orders. Patient currently DNR. Previously: Pulmonary support Pressors Antibiotics Hydrocortisone Per orders Subjective ROS Limited/Unobtainable: Yes Objective Objective Last 24 Hour Vital Signs Date Time Temp Pulse Resp B/P (MAP) Pulse Ox O2 Delivery O2 Flow Rate FiO2 10/13/20 13:00 86 16 103/60 (74) 97 10/13/20 12:00 79 10/13/20 12:00 Mechanical Ventilator 10/13/20 12:00 30 10/13/20 12:00 97.5 89 16 109/64 (79) 98 10/13/20 12:00 109/64 10/13/20 11:30 96 16 108/64 (79) 98 10/13/20 11:00 96/61 10/13/20 11:00 86 15 96/61 (73) 98 10/13/20 10:45 100 16 101/61 (74) 98 10/13/20 10:30 94 16 100/60 (73) 98 10/13/20 10:15 91 15 105/60 (75) 97 10/13/20 10:00 110/72 10/13/20 10:00 129 22 110/72 (85) 98 10/13/20 09:45 97 16 105/64 (78) 10/13/20 09:30 104 17 98/69 (79) 10/13/20 09:16 137/80 10/13/20 09:15 105 18 137/80 (99) 10/13/20 09:00 72 24 110/64 (79) 10/13/20 08:00 30 10/13/20 08:00 98.0 81 16 118/68 (85) 96 10/13/20 08:00 Mechanical Ventilator 10/13/20 07:32 84 10/13/20 07:15 81 15 30 10/13/20 07:00 118/80 10/13/20 07:00 94 18 127/84 (98) 10/13/20 06:30 79 19 127/74 (91) 10/13/20 06:30 95 36 10/13/20 06:00 127/74 10/13/20 06:00 94 18 132/79 (96) 10/13/20 05:30 86 16 130/74 (92) 10/13/20 05:00 89 18 131/77 (95) 10/13/20 05:00 144/77 10/13/20 04:30 96 23 104/58 (73) 97 10/13/20 04:00 98.3 86 20 118/73 (88) 96 10/13/20 04:00 104/71 10/13/20 04:00 30 10/13/20 04:00 89 10/13/20 04:00 Mechanical Ventilator 10/13/20 03:30 79 17 112/72 (85) 97 10/13/20 03:02 92 15 30 10/13/20 03:00 82 19 114/70 (85) 97 10/13/20 03:00 116/66 10/13/20 02:30 84 16 115/75 (88) 96 10/13/20 02:00 115/76 10/13/20 02:00 79 15 111/69 (83) 10/13/20 01:30 80 15 115/67 (83) 10/13/20 01:30 80 15 115/67 (83) 10/13/20 01:00 82 19 110/70 (83) 97 10/13/20 01:00 107/60 10/13/20 00:45 83 15 107/71 (83) 97 10/13/20 00:30 82 15 111/67 (82) 10/13/20 00:30 82 15 111/67 (82) 97 10/13/20 00:15 82 16 112/68 (83) 10/13/20 00:15 82 16 112/68 (83) 97 10/13/20 00:00 30 10/13/20 00:00 114/64 10/13/20 00:00 Mechanical Ventilator 10/13/20 00:00 98.5 80 17 111/71 (84) 97 10/13/20 00:00 98 10/13/20 00:00 80 17 111/71 (84) 10/12/20 23:45 81 14 107/60 (76) 97 10/12/20 23:30 80 17 116/71 (86) 97 10/12/20 23:18 82 14 30 10/12/20 23:15 79 16 114/70 (85) 97 10/12/20 23:00 83 21 110/70 (83) 97 10/12/20 23:00 116/60 10/12/20 22:45 80 17 119/76 (90) 97 10/12/20 22:30 73 14 124/80 (95) 96 10/12/20 22:24 104/64 10/12/20 22:15 80 17 114/72 (86) 96 10/12/20 22:00 104/56 10/12/20 22:00 76 20 107/65 (79) 10/12/20 21:45 92 17 88/57 (67) 10/12/20 21:40 85 18 93/58 (70) 10/12/20 21:35 93 18 84/44 (57) 10/12/20 21:30 90 18 86/58 (67) 10/12/20 21:15 88 18 98/55 (69) 10/12/20 21:00 104/67 10/12/20 21:00 74 17 104/69 (81) 99 10/12/20 20:45 82 17 82/53 (63) 10/12/20 20:30 86 18 78/48 (58) 10/12/20 20:15 99 20 91/59 (70) 10/12/20 20:00 30 10/12/20 20:00 Mechanical Ventilator 10/12/20 20:00 97.5 77 16 87/59 (68) 100 10/12/20 20:00 96/64 10/12/20 20:00 90 10/12/20 19:12 98 14 30 10/12/20 19:00 76 23 104/60 (75) 98 10/12/20 19:00 104/60 10/12/20 18:00 103/66 10/12/20 18:00 80 24 103/66 (78) 98 10/12/20 17:30 78 15 94/60 (71) 100 10/12/20 17:00 80 18 86/56 (66) 100 10/12/20 17:00 80 20 111/67 (82) 10/12/20 17:00 86/56 10/12/20 16:30 87 16 101/68 (79) 97 10/12/20 16:00 Mechanical Ventilator 10/12/20 16:00 87 10/12/20 16:00 98/61 10/12/20 16:00 97.4 82 33 98/61 (73) 98 10/12/20 16:00 30 10/12/20 15:30 88 31 103/67 (79) 98 10/12/20 15:22 100 16 30 10/12/20 15:00 92/56 10/12/20 15:00 72 37 92/56 (68) 99 10/12/20 14:30 74 31 89/57 (68) 100 10/12/20 14:00 73 39 98/62 (74) 100 10/12/20 14:00 98/62 Intake and Output0 10/12/20 10/13/20 19:00 07:00 Intake Total 537.50 ml 1319.125 ml Output Total 20 ml 0 ml Balance 517.50 ml 1319.125 ml Free Water 100 ml IV Total 297.50 ml 459.125 ml Tube Feeding 240 ml 560 ml Blood Product 200 ml Output Urine Total 20 ml 0 ml # Bowel Movements 101 6 Current Medications Medications (Trade) Dose Ordered Sig/Alfredo Route PRN Reason Start Time Stop Time Status Last Admin Dose Admin Acetaminophen (Tylenol) 650 mg EVERY 6 HOURS PRN NG Temp >100.5 09/30/20 02:30 10/30/20 02:29 Chlorhexidine Gluconate (Babita-Hex 2%) 1 applic DAILY@2000 TOPIC 09/30/20 20:00 12/29/20 19:59 10/12/20 21:06 Dextrose (Dextrose 50%) 25 ml Q30M PRN IV Hypoglycemia 09/30/20 02:30 12/29/20 02:29 Dextrose (Dextrose 50%) 50 ml Q30M PRN IV Hypoglycemia 09/30/20 02:30 12/29/20 02:29 Hydrocortisone (Solu-CORTEF) 100 mg EVERY 8 HOURS IV 09/30/20 14:00 12/29/20 13:59 10/13/20 13:16 Levetiracetam 100 ml @ 400 mls/hr Q12HR IVPB 10/12/20 21:00 01/10/21 20:59 10/13/20 09:27 Meropenem 500 mg/ Sodium Chloride 55 ml @ 110 mls/hr EVERY 12 HOURS IVPB 10/11/20 10:00 10/16/20 09:59 10/13/20 08:19 Metoclopramide HCl (Reglan) 5 mg Q6H IVP 10/10/20 12:00 11/09/20 11:59 10/13/20 11:39 Norepinephrine Bitartrate 16 mg/ Dextrose 500 ml @ 0 mls/hr Q24H PRN IV . 10/13/20 08:43 10/16/20 08:42 10/13/20 09:16 Pantoprazole (Protonix) 40 mg EVERY 12 HOURS IVP 10/07/20 21:00 11/06/20 20:59 10/13/20 08:19 Potassium Chloride (K-Dur) 20 meq EVERY 12 HOURS NG 10/13/20 21:00 01/11/21 17:59 Vancomycin HCl ([facility] pharmacy to dose) 1 ea DAILY PRN MISC Per rx protocol 10/11/20 09:00 11/10/20 08:59 Laboratory Tests 10/13/20 04:00: White Blood Count 33.9*H, Red Blood Count 2.98L, Hemoglobin 9.4L, Hematocrit 30.0L, Mean Corpuscular Volume 101H, Mean Corpuscular Hemoglobin 31.6H, Mean Corpuscular Hemoglobin Concent 31.3L, Red Cell Distribution Width 21.0H, Platelet Count 103#L, Mean Platelet Volume 9.9, Neutrophils (%) (Auto) , Lymphocytes (%) (Auto) , Monocytes (%) (Auto) , Eosinophils (%) (Auto) , Basophils (%) (Auto) , Differential Total Cells Counted 100, Neutrophils % (Manual) 92H, Lymphocytes % (Manual) 2L, Monocytes % (Manual) 6, Eosinophils % (Manual) 0, Basophils % (Manual) 0, Band Neutrophils 0, Nucleated Red Blood Cells 2, Platelet Estimate DecreasedL, Platelet Morphology Normal, Hypochromasia 1+, Anisocytosis 3+, Macrocytosis Occasional, Schistocytes 1+, Sodium Level 142, Potassium Level 3.0L, Chloride Level 105, Carbon Dioxide Level 22, Anion Gap 15, Blood Urea Nitrogen 37H, Creatinine 4.5H, Estimat Glomerular Filtration Rate 15.5, Glucose Level 261H, Calcium Level 9.2, Phosphorus Level 3.5, Magnesium Level 1.9, Total Bilirubin 0.7, Aspartate Amino Transf (AST/SGOT) 54H, Alanine Aminotransferase (ALT/SGPT) 78, Alkaline Phosphatase 237H, C-Reactive Protein, Quantitative < 0.4, Pro-B-Type Natriuretic Peptide 38036O, Total Protein 5.5L, Albumin 2.4L, Globulin 3.1, Albumin/Globulin Ratio 0.8L, Random Vancomycin Level 20.8 10/13/20 09:30: Prothrombin Time 15.2H, Prothromb Time International Ratio 1.4H, Activated Partial Thromboplast Time 32 10/13/20 11:55: Body Fluid Source [Pending], Body Fluid Volume [Pending], Body Fluid Appearance [Pending], Body Fluid RBC [Pending], Body Fluid Total Nucleated Cells [Pending], Body Fluid Comment [Pending] Height (Feet): 6 Height (Inches): 8.00 Weight (Pounds): 165 General Appearance: no apparent distress EENT: other - Intubated on ventilator Cardiovascular: tachycardia Respiratory/Chest: decreased breath sounds Abdomen: distended Angel Whitehead MD Oct 13, 2020 13:42
--- NOTE | 2020-10-13 14:27 | Surgery Progress Note ---
Surgery Progress Note Subjective Additional Comments no acute events ill appear on support stable no n/v Objective Last 24 Hour Vital Signs Date Time Temp Pulse Resp B/P (MAP) Pulse Ox O2 Delivery O2 Flow Rate FiO2 10/13/20 14:00 92 16 118/69 (85) 97 10/13/20 13:00 86 16 103/60 (74) 97 10/13/20 12:00 79 10/13/20 12:00 Mechanical Ventilator 10/13/20 12:00 30 10/13/20 12:00 97.5 89 16 109/64 (79) 98 10/13/20 12:00 109/64 10/13/20 11:30 96 16 108/64 (79) 98 10/13/20 11:00 96/61 10/13/20 11:00 86 15 96/61 (73) 98 10/13/20 10:45 100 16 101/61 (74) 98 10/13/20 10:30 94 16 100/60 (73) 98 10/13/20 10:15 91 15 105/60 (75) 97 10/13/20 10:00 110/72 10/13/20 10:00 129 22 110/72 (85) 98 10/13/20 09:45 97 16 105/64 (78) 10/13/20 09:30 104 17 98/69 (79) 10/13/20 09:16 137/80 10/13/20 09:15 105 18 137/80 (99) 10/13/20 09:00 72 24 110/64 (79) 10/13/20 08:00 30 10/13/20 08:00 98.0 81 16 118/68 (85) 96 10/13/20 08:00 Mechanical Ventilator 10/13/20 07:32 84 10/13/20 07:15 81 15 30 10/13/20 07:00 118/80 10/13/20 07:00 94 18 127/84 (98) 10/13/20 06:30 79 19 127/74 (91) 10/13/20 06:30 95 36 10/13/20 06:00 127/74 10/13/20 06:00 94 18 132/79 (96) 10/13/20 05:30 86 16 130/74 (92) 10/13/20 05:00 89 18 131/77 (95) 10/13/20 05:00 144/77 10/13/20 04:30 96 23 104/58 (73) 97 10/13/20 04:00 98.3 86 20 118/73 (88) 96 10/13/20 04:00 104/71 10/13/20 04:00 30 10/13/20 04:00 89 10/13/20 04:00 Mechanical Ventilator 10/13/20 03:30 79 17 112/72 (85) 97 10/13/20 03:02 92 15 30 10/13/20 03:00 82 19 114/70 (85) 97 10/13/20 03:00 116/66 10/13/20 02:30 84 16 115/75 (88) 96 10/13/20 02:00 115/76 10/13/20 02:00 79 15 111/69 (83) 10/13/20 01:30 80 15 115/67 (83) 10/13/20 01:30 80 15 115/67 (83) 10/13/20 01:00 82 19 110/70 (83) 97 10/13/20 01:00 107/60 10/13/20 00:45 83 15 107/71 (83) 97 10/13/20 00:30 82 15 111/67 (82) 10/13/20 00:30 82 15 111/67 (82) 97 10/13/20 00:15 82 16 112/68 (83) 10/13/20 00:15 82 16 112/68 (83) 97 10/13/20 00:00 30 10/13/20 00:00 114/64 10/13/20 00:00 Mechanical Ventilator 10/13/20 00:00 98.5 80 17 111/71 (84) 97 10/13/20 00:00 98 10/13/20 00:00 80 17 111/71 (84) 10/12/20 23:45 81 14 107/60 (76) 97 10/12/20 23:30 80 17 116/71 (86) 97 10/12/20 23:18 82 14 30 10/12/20 23:15 79 16 114/70 (85) 97 10/12/20 23:00 83 21 110/70 (83) 97 10/12/20 23:00 116/60 10/12/20 22:45 80 17 119/76 (90) 97 10/12/20 22:30 73 14 124/80 (95) 96 10/12/20 22:24 104/64 10/12/20 22:15 80 17 114/72 (86) 96 10/12/20 22:00 104/56 10/12/20 22:00 76 20 107/65 (79) 10/12/20 21:45 92 17 88/57 (67) 10/12/20 21:40 85 18 93/58 (70) 10/12/20 21:35 93 18 84/44 (57) 10/12/20 21:30 90 18 86/58 (67) 10/12/20 21:15 88 18 98/55 (69) 10/12/20 21:00 104/67 10/12/20 21:00 74 17 104/69 (81) 99 10/12/20 20:45 82 17 82/53 (63) 10/12/20 20:30 86 18 78/48 (58) 10/12/20 20:15 99 20 91/59 (70) 10/12/20 20:00 30 10/12/20 20:00 Mechanical Ventilator 10/12/20 20:00 97.5 77 16 87/59 (68) 100 10/12/20 20:00 96/64 10/12/20 20:00 90 10/12/20 19:12 98 14 30 10/12/20 19:00 76 23 104/60 (75) 98 10/12/20 19:00 104/60 10/12/20 18:00 103/66 10/12/20 18:00 80 24 103/66 (78) 98 10/12/20 17:30 78 15 94/60 (71) 100 10/12/20 17:00 80 18 86/56 (66) 100 10/12/20 17:00 80 20 111/67 (82) 10/12/20 17:00 86/56 10/12/20 16:30 87 16 101/68 (79) 97 10/12/20 16:00 Mechanical Ventilator 10/12/20 16:00 87 10/12/20 16:00 98/61 10/12/20 16:00 97.4 82 33 98/61 (73) 98 10/12/20 16:00 30 10/12/20 15:30 88 31 103/67 (79) 98 10/12/20 15:22 100 16 30 10/12/20 15:00 92/56 10/12/20 15:00 72 37 92/56 (68) 99 10/12/20 14:30 74 31 89/57 (68) 100 I&O Intake and Output 10/12/20 10/13/20 19:00 07:00 Intake Total 537.50 ml 1319.125 ml Output Total 20 ml 0 ml Balance 517.50 ml 1319.125 ml Free Water 100 ml IV Total 297.50 ml 459.125 ml Tube Feeding 240 ml 560 ml Blood Product 200 ml Output Urine Total 20 ml 0 ml # Bowel Movements 101 6 Dressing: saturated Cardiovascular: RSR Respiratory: decreased breath sounds Abdomen: non-tender, present bowel sounds, non-distended Extremities: no tenderness, no cyanosis Laboratory Tests Test 10/13/20 04:00 10/13/20 09:30 10/13/20 11:55 White Blood Count 33.9 K/UL (4.8-10.8) *H Red Blood Count 2.98 M/UL (4.70-6.10) L Hemoglobin 9.4 G/DL (14.2-18.0) L Hematocrit 30.0 % (42.0-52.0) L Mean Corpuscular Volume 101 FL (80-99) H Mean Corpuscular Hemoglobin 31.6 PG (27.0-31.0) H Mean Corpuscular Hemoglobin Concent 31.3 G/DL (32.0-36.0) L Red Cell Distribution Width 21.0 % (11.6-14.8) H Platelet Count 103 K/UL (150-450) #L Mean Platelet Volume 9.9 FL (6.5-10.1) Neutrophils (%) (Auto) % (45.0-75.0) Lymphocytes (%) (Auto) % (20.0-45.0) Monocytes (%) (Auto) % (1.0-10.0) Eosinophils (%) (Auto) % (0.0-3.0) Basophils (%) (Auto) % (0.0-2.0) Differential Total Cells Counted 100 Neutrophils % (Manual) 92 % (45-75) H Lymphocytes % (Manual) 2 % (20-45) L Monocytes % (Manual) 6 % (1-10) Eosinophils % (Manual) 0 % (0-3) Basophils % (Manual) 0 % (0-2) Band Neutrophils 0 % (0-8) Nucleated Red Blood Cells 2 /100 WBC Platelet Estimate Decreased L Platelet Morphology Normal Hypochromasia 1+ Anisocytosis 3+ Macrocytosis Occasional Schistocytes 1+ Sodium Level 142 MMOL/L (136-145) Potassium Level 3.0 MMOL/L (3.5-5.1) L Chloride Level 105 MMOL/L (98-107) Carbon Dioxide Level 22 MMOL/L (21-32) Anion Gap 15 mmol/L (5-15) Blood Urea Nitrogen 37 mg/dL (7-18) H Creatinine 4.5 MG/DL (0.55-1.30) H Estimat Glomerular Filtration Rate 15.5 mL/min (>60) Glucose Level 261 MG/DL (74-106) H Calcium Level 9.2 MG/DL (8.5-10.1) Phosphorus Level 3.5 MG/DL (2.5-4.9) Magnesium Level 1.9 MG/DL (1.8-2.4) Total Bilirubin 0.7 MG/DL (0.2-1.0) Aspartate Amino Transf (AST/SGOT) 54 U/L (15-37) H Alanine Aminotransferase (ALT/SGPT) 78 U/L (12-78) Alkaline Phosphatase 237 U/L (46-116) H C-Reactive Protein, Quantitative < 0.4 mg/dL (0.00-0.90) Pro-B-Type Natriuretic Peptide 54116 pg/mL (0-125) H Total Protein 5.5 G/DL (6.4-8.2) L Albumin 2.4 G/DL (3.4-5.0) L Globulin 3.1 g/dL Albumin/Globulin Ratio 0.8 (1.0-2.7) L Random Vancomycin Level 20.8 ug/mL Prothrombin Time 15.2 SEC (9.30-11.50) H Prothromb Time International Ratio 1.4 (0.9-1.1) H Activated Partial Thromboplast Time 32 SEC (23-33) Body Fluid Source Pending Body Fluid Volume Pending Body Fluid Appearance Pending Body Fluid RBC Pending Body Fluid Total Nucleated Cells Pending Body Fluid Comment Pending Plan Problems: (1) Cardiopulmonary arrest (2) Septic shock Assessment & Plan: 75 male leukocytosis lactic acidosis septic shock intubated intensive care unit. Unable to give abdominal exam, exam otherwise benign abdominal unlikely etiology imaging reviewed labs reviewed. Continue ventilator support respiratory in nature seemingly. NG tube IV fluids IV antibiotics will follow with recommendations thank you letter participation's care bleeding from HD cath site ddavp ordered will monitor DAILY ESTIMATED NEEDS: Needs based on Critical care 74.2kg 22-28 kcals/kg 5426-4991 total kcals 1.2-2 g protein/kg 89-148 g total protein 25-30 mL/kg 4704-4214 total fluid mLs NUTRITION DIAGNOSIS: Swallowing difficulty r/t respiratory arrest as evidenced by pt intubated, on pressor support, ICU status. ENTERAL NUTRITION RECOMMENDATIONS: As able NEPRO @40ml/hr x24 hrs to provide 960ml, 1728 kcal, 78g pro, 698ml free H2O -When stable for feeds rec renal formula at this time d/t increasing K and phos. -obtain GI access, initiate Nepro @20ml/hr for 6 hrs, advance as tolerated 10ml/hr 2q4-6 hrs to goal -When tolerating TF at goal, add prosource 1 pack BID to better meet est pro needs. -Flush per . HOB over 30 degrees. ----> If hemodynamically unstable, rec trophic feeds of Nepro @10ml/hr to maintain gut integrity. ADDITIONAL RECOMMENDATIONS: 1) F/up w/ H&P 2) Maintain D5 IV hydration while NPO 3) Maintain calibrated bed scale wts 4) Non oral feeds when stable (3) Lactic acidosis (4) Failure to thrive (5) Pancytopenia (6) Respiratory failure (7) Hypoxia (8) Pneumonia (9) Respiratory arrest (10) Hypernatremia (11) Renal failure Oni Walker Oct 13, 2020 14:27
--- NOTE | 2020-10-13 15:31 | NUR ---
INSURANCE CLINICALS FAXED TO [place] CM: [phone] and [phone]
--- NOTE | 2020-10-13 15:49 | General Progress Note ---
Subjective Allergies: Coded Allergies: No Known Allergies (Unverified , 09/13/20) Objective Last 24 Hour Vital Signs Date Time Temp Pulse Resp B/P (MAP) Pulse Ox O2 Delivery O2 Flow Rate FiO2 10/13/20 15:00 118 18 105/66 (79) 96 10/13/20 14:00 92 16 118/69 (85) 97 10/13/20 13:00 86 16 103/60 (74) 97 10/13/20 12:00 79 10/13/20 12:00 Mechanical Ventilator 10/13/20 12:00 30 10/13/20 12:00 97.5 89 16 109/64 (79) 98 10/13/20 12:00 109/64 10/13/20 11:30 96 16 108/64 (79) 98 10/13/20 11:00 96/61 10/13/20 11:00 86 15 96/61 (73) 98 10/13/20 10:45 100 16 101/61 (74) 98 10/13/20 10:30 94 16 100/60 (73) 98 10/13/20 10:15 91 15 105/60 (75) 97 10/13/20 10:00 110/72 10/13/20 10:00 129 22 110/72 (85) 98 10/13/20 09:45 97 16 105/64 (78) 10/13/20 09:30 104 17 98/69 (79) 10/13/20 09:16 137/80 10/13/20 09:15 105 18 137/80 (99) 10/13/20 09:00 72 24 110/64 (79) 10/13/20 08:00 30 10/13/20 08:00 98.0 81 16 118/68 (85) 96 10/13/20 08:00 Mechanical Ventilator 10/13/20 07:32 84 10/13/20 07:15 81 15 30 10/13/20 07:00 118/80 10/13/20 07:00 94 18 127/84 (98) 10/13/20 06:30 79 19 127/74 (91) 10/13/20 06:30 95 36 10/13/20 06:00 127/74 10/13/20 06:00 94 18 132/79 (96) 10/13/20 05:30 86 16 130/74 (92) 10/13/20 05:00 89 18 131/77 (95) 10/13/20 05:00 144/77 10/13/20 04:30 96 23 104/58 (73) 97 10/13/20 04:00 98.3 86 20 118/73 (88) 96 10/13/20 04:00 104/71 10/13/20 04:00 30 10/13/20 04:00 89 10/13/20 04:00 Mechanical Ventilator 10/13/20 03:30 79 17 112/72 (85) 97 10/13/20 03:02 92 15 30 10/13/20 03:00 82 19 114/70 (85) 97 10/13/20 03:00 116/66 10/13/20 02:30 84 16 115/75 (88) 96 10/13/20 02:00 115/76 10/13/20 02:00 79 15 111/69 (83) 10/13/20 01:30 80 15 115/67 (83) 10/13/20 01:30 80 15 115/67 (83) 10/13/20 01:00 82 19 110/70 (83) 97 10/13/20 01:00 107/60 10/13/20 00:45 83 15 107/71 (83) 97 10/13/20 00:30 82 15 111/67 (82) 10/13/20 00:30 82 15 111/67 (82) 97 10/13/20 00:15 82 16 112/68 (83) 10/13/20 00:15 82 16 112/68 (83) 97 10/13/20 00:00 30 10/13/20 00:00 114/64 10/13/20 00:00 Mechanical Ventilator 10/13/20 00:00 98.5 80 17 111/71 (84) 97 10/13/20 00:00 98 10/13/20 00:00 80 17 111/71 (84) 10/12/20 23:45 81 14 107/60 (76) 97 10/12/20 23:30 80 17 116/71 (86) 97 10/12/20 23:18 82 14 30 10/12/20 23:15 79 16 114/70 (85) 97 10/12/20 23:00 83 21 110/70 (83) 97 10/12/20 23:00 116/60 10/12/20 22:45 80 17 119/76 (90) 97 10/12/20 22:30 73 14 124/80 (95) 96 10/12/20 22:24 104/64 10/12/20 22:15 80 17 114/72 (86) 96 10/12/20 22:00 104/56 10/12/20 22:00 76 20 107/65 (79) 10/12/20 21:45 92 17 88/57 (67) 10/12/20 21:40 85 18 93/58 (70) 10/12/20 21:35 93 18 84/44 (57) 10/12/20 21:30 90 18 86/58 (67) 10/12/20 21:15 88 18 98/55 (69) 10/12/20 21:00 104/67 10/12/20 21:00 74 17 104/69 (81) 99 10/12/20 20:45 82 17 82/53 (63) 10/12/20 20:30 86 18 78/48 (58) 10/12/20 20:15 99 20 91/59 (70) 10/12/20 20:00 30 10/12/20 20:00 Mechanical Ventilator 10/12/20 20:00 97.5 77 16 87/59 (68) 100 10/12/20 20:00 96/64 10/12/20 20:00 90 10/12/20 19:12 98 14 30 10/12/20 19:00 76 23 104/60 (75) 98 10/12/20 19:00 104/60 10/12/20 18:00 103/66 10/12/20 18:00 80 24 103/66 (78) 98 10/12/20 17:30 78 15 94/60 (71) 100 10/12/20 17:00 80 18 86/56 (66) 100 10/12/20 17:00 80 20 111/67 (82) 10/12/20 17:00 86/56 10/12/20 16:30 87 16 101/68 (79) 97 10/12/20 16:00 Mechanical Ventilator 10/12/20 16:00 87 10/12/20 16:00 98/61 10/12/20 16:00 97.4 82 33 98/61 (73) 98 10/12/20 16:00 30 Intake and Output 10/12/20 10/13/20 19:00 07:00 Intake Total 537.50 ml 1319.125 ml Output Total 20 ml 0 ml Balance 517.50 ml 1319.125 ml Free Water 100 ml IV Total 297.50 ml 459.125 ml Tube Feeding 240 ml 560 ml Blood Product 200 ml Output Urine Total 20 ml 0 ml # Bowel Movements 101 6 Laboratory Tests 10/13/20 04:00: White Blood Count 33.9*H, Red Blood Count 2.98L, Hemoglobin 9.4L, Hematocrit 30.0L, Mean Corpuscular Volume 101H, Mean Corpuscular Hemoglobin 31.6H, Mean Corpuscular Hemoglobin Concent 31.3L, Red Cell Distribution Width 21.0H, Platelet Count 103#L, Mean Platelet Volume 9.9, Neutrophils (%) (Auto) , Lymphocytes (%) (Auto) , Monocytes (%) (Auto) , Eosinophils (%) (Auto) , Basophils (%) (Auto) , Differential Total Cells Counted 100, Neutrophils % (Manual) 92H, Lymphocytes % (Manual) 2L, Monocytes % (Manual) 6, Eosinophils % (Manual) 0, Basophils % (Manual) 0, Band Neutrophils 0, Nucleated Red Blood Cells 2, Platelet Estimate DecreasedL, Platelet Morphology Normal, Hypochromasia 1+, Anisocytosis 3+, Macrocytosis Occasional, Schistocytes 1+, Sodium Level 142, Potassium Level 3.0L, Chloride Level 105, Carbon Dioxide Level 22, Anion Gap 15, Blood Urea Nitrogen 37H, Creatinine 4.5H, Estimat Glomerular Filtration Rate 15.5, Glucose Level 261H, Calcium Level 9.2, Phosphorus Level 3.5, Magnesium Level 1.9, Total Bilirubin 0.7, Aspartate Amino Transf (AST/SGOT) 54H, Alanine Aminotransferase (ALT/SGPT) 78, Alkaline Phosphatase 237H, C-Reactive Protein, Quantitative < 0.4, Pro-B-Type Natriuretic Peptide 96049D, Total Protein 5.5L, Albumin 2.4L, Globulin 3.1, Albumin/Globulin Ratio 0.8L, Random Vancomycin Level 20.8 10/13/20 09:30: Prothrombin Time 15.2H, Prothromb Time International Ratio 1.4H, Activated Partial Thromboplast Time 32 10/13/20 11:55: Body Fluid Source [Pending], Body Fluid Volume [Pending], Body Fluid Appearance [Pending], Body Fluid RBC [Pending], Body Fluid Total Nucleated Cells [Pending], Body Fluid Comment [Pending] Height (Feet): 6 Height (Inches): 8.00 Weight (Pounds): 165 General Appearance: no apparent distress EENT: normal ENT inspection Neck: supple Cardiovascular: normal rate Respiratory/Chest: decreased breath sounds Abdomen: hypoactive bowel sounds Extremities: non-tender Assessment/Plan Status: unchanged Assessment/Plan: 1. History of thalassemia. 2. Hypertension. 3. Chronic pancreatitis. 4. Dyslipidemia. 5. Atherosclerosis. 6. GERD. 7. Renal cyst. 8. Peripheral neuropathy. 9. History of colonic polyps. 10. Depression. 11. respiratory failure 12. renal failure 13 anemia 14.ascites ngtf s/p paracentesis on reglan for elevated residuals repeat labs hepatitis panel ammonia level Nando Lyles MD Oct 13, 2020 15:49
--- NOTE | 2020-10-13 19:20 | NUR ---
NURSE HAND-OFF REPORT: Latest Vital Signs: Temperature 98.0 , Pulse 90 , B/P 118 /73 , Respiratory Rate 11 , O2 SAT 96 , Mechanical Ventilator, fiO2 30%. Vital Sign Comment: EKG Rhythm: Sinus Rhythm Rhythm change?: N Latest Carty Fall Score: 50 Fall Risk: High Risk Safety Measures: Call light Within Reach, Bed Alarm Zone 1, Side Rails Side Rails x3, Bed position Low and Locked. Fall Precautions: Yellow Socks Door Sign Patient Fall Education Report given to Fabienne Renae RN.
--- NOTE | 2020-10-13 19:30 | NUR ---
NURSE NOTES: NURSE NOTES: RN received report from day RN. Patient vitals stable at this time. Patient shows no s/s of discomfort. RN repositioned. Will continue to monitor.
[2020-10-13] MEDS: Dyna-Hex 2% Top Sol 2oz TOPIC SCH (20:28)
--- NOTE | 2020-10-13 21:45 | NUR ---
NURSE NOTES: Patient vitals stable. Patient denies pain. Patient repositioned. RN will continue to monitor.
--- NOTE | 2020-10-13 23:45 | NUR ---
NURSE NOTES: Patient vitals stable at this time. Patient shows no s/s pain. Oral care completed. RN will continue to monitor.
[2020-10-14] VITALS (80 sets, daily range): BP systolic 95–130; BP diastolic 55–102
[2020-10-14] MEDS: Metoclopramide 10mg/2ml Inj IVP SCH ×2 (00:20→06:00)
--- NOTE | 2020-10-14 01:35 | NUR ---
NURSE NOTES: Patient resting. Patient cleaned up and repositioned. RN will continue to monitor.
--- NOTE | 2020-10-14 04:00 | NUR ---
NURSE NOTES: Patient vitals stable at this time. Patient asleep. RN cleaned up patient. RN will continue to monitor.
[2020-10-14 05:31] LABS: HEMATOCRIT 31.9 % (42.0-52.0); HEMOGLOBIN 10.1 G/DL (14.2-18.0); MEAN CORPUSCULAR VOLUME 102 FL (80-99); PLATELET COUNT 69 K/UL (150-450); RED BLOOD COUNT 3.15 M/UL (4.70-6.10); RED CELL DISTRIBUTION WIDTH 22.2 % (11.6-14.8)
[2020-10-14 05:45] LABS: ALANINE AMINOTRANSFERASE 78 U/L (12-78); ALBUMIN 2.3 G/DL (3.4-5.0); ALBUMIN/GLOBULIN RATIO 0.7 (1.0-2.7); ALKALINE PHOSPHATASE 186 U/L (46-116); ANION GAP 14 mmol/L (5-15); ASPARTATE AMINO TRANSFERASE 43 U/L (15-37); BILIRUBIN,TOTAL 0.8 MG/DL (0.2-1.0); BLOOD UREA NITROGEN 46 mg/dL (7-18); CARBON DIOXIDE 22 MMOL/L (21-32); CHLORIDE 104 MMOL/L (98-107); CREATININE 5.3 MG/DL (0.55-1.30); PHOSPHORUS 3.9 MG/DL (2.5-4.9); POTASSIUM 3.1 MMOL/L (3.5-5.1); SODIUM 140 MMOL/L (136-145)
[2020-10-14 05:51] LABS: WHITE BLOOD COUNT 26.9 K/UL (4.8-10.8)
[2020-10-14] MEDS: Hydrocortisone 100mg Inj IV SCH ×3 (06:00→21:13)
--- NOTE | 2020-10-14 06:12 | Hematology/Onc Progress Note ---
Assessment/Plan Assessment/Plan Lab Data: reviewed IMAGING: CT Head: No evidence of acute intracranial hemorrhage, mass effect or cortical edema. MRI recommended for more sensitive evaluation as clinically indicated. Atrophy and nonspecific periventricular hypoattenuation suggestive of chronic ischemic microvascular changes. Assessment And Rec's 1. Thrombocytopenia and p/w Anemia of Chronic Disease, in chart hx of anemia --> check anemia panel --> transfuse to keep HGB >7 --> cont to monitor HGB trend, stool ob --> prior imaging reviewed, showed strophic liver --> plt 52-->56-->106 --> s/p plt 10 2. Leukocytosis is likely related to infection --> ABx as per id emiliana/vanc --> wbc 36-->37-->34 --> smear is noted 3. Anemia due to chronic disease --> hgb 9-->9.4 --> no hemolysis is noted --> transfuse prn 4. Anoxic Encephalopathy --> S/p recent CODE Blue and intubation --> CT head reviewed as above Covid Ag is NEGATIVE, PCR sent and pending. PUI status 5. FTT --> Supportive care pt is DNR 6. Acute hypoxemic respiratory failure --> s/p intubation on vent 7. Dvt ppx scds Greatly appreciate consult. Subjective Allergies: Coded Allergies: No Known Allergies (Unverified , 09/13/20) All Systems: reviewed and negative except above Subjective 10/11 icu, nv, is on vent, no bleeding, dw rn, labs reviewed, plt 52 10/12 icu, nv, remains on vent as well as levo, labs are reviewed, wbc 37k 10/13 icu, nv, remains on vent, and levo pressors, labs noted, wbc better 10/14 icu, nv, on vent, no bleeding, pressors, meds reviewed Objective Objective Current Medications Medications (Trade) Dose Ordered Sig/Alfredo Route PRN Reason Start Time Stop Time Status Last Admin Dose Admin Acetaminophen (Tylenol) 650 mg EVERY 6 HOURS PRN NG Temp >100.5 09/30/20 02:30 10/30/20 02:29 Chlorhexidine Gluconate (Babita-Hex 2%) 1 applic DAILY@1999 TOPIC 09/30/20 20:00 12/29/20 19:59 10/13/20 20:28 Dextrose (Dextrose 50%) 25 ml Q30M PRN IV Hypoglycemia 09/30/20 02:30 12/29/20 02:29 Dextrose (Dextrose 50%) 50 ml Q30M PRN IV Hypoglycemia 09/30/20 02:30 12/29/20 02:29 Hydrocortisone (Solu-CORTEF) 100 mg EVERY 8 HOURS IV 09/30/20 14:00 12/29/20 13:59 10/14/20 06:00 Levetiracetam 100 ml @ 400 mls/hr Q12HR IVPB 10/12/20 21:00 01/10/21 20:59 10/13/20 20:56 Meropenem 500 mg/ Sodium Chloride 55 ml @ 110 mls/hr EVERY 12 HOURS IVPB 10/11/20 10:00 10/16/20 09:59 10/13/20 20:56 Metoclopramide HCl (Reglan) 5 mg Q6H IVP 10/10/20 12:00 11/09/20 11:59 10/14/20 06:00 Norepinephrine Bitartrate 16 mg/ Dextrose 500 ml @ 0 mls/hr Q24H PRN IV . 10/13/20 08:43 10/16/20 08:42 10/13/20 09:16 Pantoprazole (Protonix) 40 mg EVERY 12 HOURS IVP 10/07/20 21:00 11/06/20 20:59 10/13/20 20:51 Potassium Chloride (K-Dur) 20 meq EVERY 12 HOURS NG 10/13/20 21:00 01/11/21 17:59 10/13/20 20:57 Vancomycin HCl (Vanco pharmacy to dose) 1 ea DAILY PRN MISC Per rx protocol 10/11/20 09:00 11/10/20 08:59 Last 24 Hour Vital Signs Date Time Temp Pulse Resp B/P (MAP) Pulse Ox O2 Delivery O2 Flow Rate FiO2 10/14/20 06:00 90 23 99 10/14/20 05:45 86 14 123/69 (87) 99 10/14/20 05:30 84 14 124/76 (92) 98 10/14/20 05:15 87 15 120/79 (93) 100 10/14/20 05:00 86 14 112/71 (85) 10/14/20 04:45 123 32 127/102 (110) 86 10/14/20 04:30 85 43 120/77 (91) 99 10/14/20 04:15 96 25 121/75 (90) 99 10/14/20 04:03 30 10/14/20 04:03 Mechanical Ventilator 10/14/20 04:00 86 34 117/71 (86) 99 10/14/20 03:55 80 10/14/20 03:45 81 35 120/72 (88) 99 10/14/20 03:30 84 46 120/74 (89) 98 10/14/20 03:15 95 14 30 10/14/20 03:15 84 34 108/74 (85) 99 10/14/20 03:00 82 26 119/72 (88) 98 10/14/20 02:45 82 42 120/72 (88) 98 10/14/20 02:30 83 41 119/72 (88) 98 10/14/20 02:15 75 40 118/71 (87) 99 10/14/20 02:00 76 33 117/74 (88) 99 10/14/20 01:30 73 40 115/71 (86) 98 10/14/20 01:15 75 34 116/69 (85) 98 10/14/20 01:00 78 43 112/71 (85) 99 10/14/20 00:45 81 30 114/72 (86) 98 10/14/20 00:30 81 26 116/70 (85) 98 10/14/20 00:15 79 28 115/72 (86) 99 10/14/20 00:15 79 28 115/72 (86) 99 10/14/20 00:00 79 27 118/71 (87) 98 10/14/20 00:00 79 27 118/71 (87) 98 10/14/20 00:00 92 10/14/20 00:00 Mechanical Ventilator 10/13/20 23:45 79 31 115/55 (75) 98 10/13/20 23:30 84 27 118/69 (85) 98 10/13/20 23:15 82 29 120/71 (87) 100 10/13/20 23:11 81 12 30 10/13/20 23:00 89 37 120/74 (89) 98 10/13/20 22:45 67 34 112/64 (80) 98 10/13/20 22:30 79 27 112/65 (81) 98 10/13/20 22:00 75 20 112/57 (75) 98 10/13/20 21:45 79 27 116/73 (87) 97 10/13/20 21:30 78 14 113/67 (82) 98 10/13/20 21:15 77 31 115/68 (84) 98 10/13/20 21:00 82 30 113/73 (86) 97 10/13/20 20:45 82 20 111/67 (82) 97 10/13/20 20:30 85 19 111/66 (81) 97 10/13/20 20:15 86 16 124/74 (91) 97 10/13/20 20:00 Mechanical Ventilator 10/13/20 20:00 30 10/13/20 20:00 66 10/13/20 20:00 64 31 106/62 (77) 97 10/13/20 19:45 65 21 108/61 (77) 97 10/13/20 19:30 66 23 106/63 (77) 97 10/13/20 19:06 90 11 30 10/13/20 19:00 118/73 10/13/20 19:00 79 21 118/73 (88) 96 10/13/20 18:00 82 20 123/78 (93) 97 10/13/20 18:00 123/78 10/13/20 17:00 85 18 116/74 (88) 97 10/13/20 17:00 116/74 10/13/20 16:03 81 10/13/20 16:00 116/67 10/13/20 16:00 30 10/13/20 16:00 98.0 84 15 116/67 (83) 95 10/13/20 16:00 Mechanical Ventilator 10/13/20 15:05 80 13 30 10/13/20 15:00 105/66 10/13/20 15:00 118 18 105/66 (79) 96 10/13/20 14:00 92 16 118/69 (85) 97 10/13/20 14:00 118/69 10/13/20 13:00 103/60 10/13/20 13:00 86 16 103/60 (74) 97 10/13/20 12:00 79 10/13/20 12:00 Mechanical Ventilator 10/13/20 12:00 30 10/13/20 12:00 97.5 89 16 109/64 (79) 98 10/13/20 12:00 109/64 10/13/20 11:30 96 16 108/64 (79) 98 10/13/20 11:15 86 14 30 10/13/20 11:00 96/61 10/13/20 11:00 86 15 96/61 (73) 98 10/13/20 10:45 100 16 101/61 (74) 98 10/13/20 10:30 94 16 100/60 (73) 98 10/13/20 10:15 91 15 105/60 (75) 97 10/13/20 10:00 110/72 10/13/20 10:00 129 22 110/72 (85) 98 10/13/20 09:45 97 16 105/64 (78) 10/13/20 09:30 104 17 98/69 (79) 10/13/20 09:16 137/80 10/13/20 09:15 105 18 137/80 (99) 10/13/20 09:00 72 24 110/64 (79) 10/13/20 08:00 30 10/13/20 08:00 98.0 81 16 118/68 (85) 96 10/13/20 08:00 Mechanical Ventilator 10/13/20 07:32 84 10/13/20 07:15 81 15 30 10/13/20 07:00 118/80 10/13/20 07:00 94 18 127/84 (98) 10/13/20 06:30 79 19 127/74 (91) 10/13/20 06:30 95 36 10/13/20 06:00 127/74 10/13/20 06:00 94 18 132/79 (96) 10/13/20 05:30 86 16 130/74 (92) 10/13/20 05:00 89 18 131/77 (95) 10/13/20 05:00 144/77 10/13/20 04:30 96 23 104/58 (73) 97 10/13/20 04:00 98.3 86 20 118/73 (88) 96 10/13/20 04:00 104/71 10/13/20 04:00 30 10/13/20 04:00 89 10/13/20 04:00 Mechanical Ventilator 10/13/20 03:30 79 17 112/72 (85) 97 10/13/20 03:02 92 15 30 10/13/20 03:00 82 19 114/70 (85) 97 10/13/20 03:00 116/66 10/13/20 02:30 84 16 115/75 (88) 96 10/13/20 02:00 115/76 10/13/20 02:00 79 15 111/69 (83) 10/13/20 01:30 80 15 115/67 (83) 10/13/20 01:30 80 15 115/67 (83) 10/13/20 01:00 82 19 110/70 (83) 97 10/13/20 01:00 107/60 10/13/20 00:45 83 15 107/71 (83) 97 10/13/20 00:30 82 15 111/67 (82) 10/13/20 00:30 82 15 111/67 (82) 97 10/13/20 00:15 82 16 112/68 (83) 10/13/20 00:15 82 16 112/68 (83) 97 10/13/20 00:00 30 10/13/20 00:00 114/64 10/13/20 00:00 Mechanical Ventilator 10/13/20 00:00 98.5 80 17 111/71 (84) 97 10/13/20 00:00 98 10/13/20 00:00 80 17 111/71 (84) 10/12/20 23:45 81 14 107/60 (76) 97 10/12/20 23:30 80 17 116/71 (86) 97 10/12/20 23:18 82 14 30 10/12/20 23:15 79 16 114/70 (85) 97 10/12/20 23:00 83 21 110/70 (83) 97 10/12/20 23:00 116/60 10/12/20 22:45 80 17 119/76 (90) 97 10/12/20 22:30 73 14 124/80 (95) 96 10/12/20 22:24 104/64 10/12/20 22:15 80 17 114/72 (86) 96 10/12/20 22:00 104/56 10/12/20 22:00 76 20 107/65 (79) 10/12/20 21:45 92 17 88/57 (67) 10/12/20 21:40 85 18 93/58 (70) 10/12/20 21:35 93 18 84/44 (57) 10/12/20 21:30 90 18 86/58 (67) 10/12/20 21:15 88 18 98/55 (69) 10/12/20 21:00 104/67 10/12/20 21:00 74 17 104/69 (81) 99 10/12/20 20:45 82 17 82/53 (63) 10/12/20 20:30 86 18 78/48 (58) 10/12/20 20:15 99 20 91/59 (70) 10/12/20 20:00 30 10/12/20 20:00 Mechanical Ventilator 10/12/20 20:00 97.5 77 16 87/59 (68) 100 10/12/20 20:00 96/64 10/12/20 20:00 90 10/12/20 19:12 98 14 30 10/12/20 19:00 76 23 104/60 (75) 98 10/12/20 19:00 104/60 10/12/20 18:00 103/66 10/12/20 18:00 80 24 103/66 (78) 98 10/12/20 17:30 78 15 94/60 (71) 100 10/12/20 17:00 80 18 86/56 (66) 100 10/12/20 17:00 80 20 111/67 (82) 10/12/20 17:00 86/56 10/12/20 16:30 87 16 101/68 (79) 97 10/12/20 16:00 Mechanical Ventilator 10/12/20 16:00 87 10/12/20 16:00 98/61 10/12/20 16:00 97.4 82 33 98/61 (73) 98 10/12/20 16:00 30 10/12/20 15:30 88 31 103/67 (79) 98 10/12/20 15:22 100 16 30 10/12/20 15:00 92/56 10/12/20 15:00 72 37 92/56 (68) 99 10/12/20 14:30 74 31 89/57 (68) 100 10/12/20 14:00 73 39 98/62 (74) 100 10/12/20 14:00 98/62 10/12/20 13:30 83 42 102/65 (77) 99 10/12/20 13:00 13 93/59 (70) 99 10/12/20 13:00 93/59 10/12/20 12:30 88 13 104/65 (78) 99 10/12/20 12:00 30 10/12/20 12:00 Mechanical Ventilator 10/12/20 12:00 97.6 77 46 104/66 (79) 99 10/12/20 12:00 84 10/12/20 11:44 75 13 30 10/12/20 11:00 113/68 10/12/20 11:00 97 34 113/68 (83) 10/12/20 10:30 82 13 99/55 (70) 98 10/12/20 10:00 95/62 10/12/20 10:00 84 13 95/62 (73) 98 10/12/20 09:30 83 13 98/49 (65) 99 10/12/20 09:00 85 29 105/66 (79) 99 10/12/20 09:00 105/66 10/12/20 08:00 30 10/12/20 08:00 97.4 87 33 104/67 (79) 100 10/12/20 08:00 104/67 10/12/20 08:00 87 10/12/20 08:00 Mechanical Ventilator 10/12/20 07:30 77 35 89/56 (67) 100 10/12/20 07:26 76 13 30 10/12/20 07:00 101/51 10/12/20 07:00 78 33 94/62 (73) 10/12/20 06:30 76 36 10/12/20 06:30 86 33 101/66 (78) Intake and Output 10/13/20 10/14/20 19:00 07:00 Intake Total 837.50 ml 782.50 ml Output Total 10 ml Balance 827.50 ml 782.50 ml IV Total 437.50 ml 342.50 ml Tube Feeding 400 ml 440 ml Output Urine Total 10 ml # Bowel Movements 2 3 Labs Test 10/11/20 16:15 10/12/20 04:00 10/13/20 04:00 10/13/20 09:30 Activated Partial Thromboplast Time 34 SEC (23-33) 32 SEC (23-33) White Blood Count 37.1 K/UL (4.8-10.8) 33.9 K/UL (4.8-10.8) Red Blood Count 3.11 M/UL (4.70-6.10) 2.98 M/UL (4.70-6.10) Hemoglobin 9.6 G/DL (14.2-18.0) 9.4 G/DL (14.2-18.0) Hematocrit 31.1 % (42.0-52.0) 30.0 % (42.0-52.0) Mean Corpuscular Volume 100 FL (80-99) 101 FL (80-99) Mean Corpuscular Hemoglobin 30.7 PG (27.0-31.0) 31.6 PG (27.0-31.0) Mean Corpuscular Hemoglobin Concent 30.8 G/DL (32.0-36.0) 31.3 G/DL (32.0-36.0) Red Cell Distribution Width 20.6 % (11.6-14.8) 21.0 % (11.6-14.8) Platelet Count 56 K/UL (150-450) 103 K/UL (150-450) Mean Platelet Volume 11.8 FL (6.5-10.1) 9.9 FL (6.5-10.1) Neutrophils (%) (Auto) % (45.0-75.0) % (45.0-75.0) Lymphocytes (%) (Auto) % (20.0-45.0) % (20.0-45.0) Monocytes (%) (Auto) % (1.0-10.0) % (1.0-10.0) Eosinophils (%) (Auto) % (0.0-3.0) % (0.0-3.0) Basophils (%) (Auto) % (0.0-2.0) % (0.0-2.0) Differential Total Cells Counted 100 100 Neutrophils % (Manual) 94 % (45-75) 92 % (45-75) Lymphocytes % (Manual) 2 % (20-45) 2 % (20-45) Monocytes % (Manual) 4 % (1-10) 6 % (1-10) Eosinophils % (Manual) 0 % (0-3) 0 % (0-3) Basophils % (Manual) 0 % (0-2) 0 % (0-2) Band Neutrophils 0 % (0-8) 0 % (0-8) Platelet Estimate Decreased Decreased Platelet Morphology Normal Normal Hypochromasia 1+ 1+ Anisocytosis 2+ 3+ Macrocytosis 1+ Occasional Schistocytes 1+ 1+ Sodium Level 140 MMOL/L (136-145) 142 MMOL/L (136-145) Potassium Level 3.2 MMOL/L (3.5-5.1) 3.0 MMOL/L (3.5-5.1) Chloride Level 105 MMOL/L (98-107) 105 MMOL/L (98-107) Carbon Dioxide Level 21 MMOL/L (21-32) 22 MMOL/L (21-32) Anion Gap 14 mmol/L (5-15) 15 mmol/L (5-15) Blood Urea Nitrogen 50 mg/dL (7-18) 37 mg/dL (7-18) Creatinine 5.8 MG/DL (0.55-1.30) 4.5 MG/DL (0.55-1.30) Estimat Glomerular Filtration Rate 11.5 mL/min (>60) 15.5 mL/min (>60) Glucose Level 251 MG/DL (74-106) 261 MG/DL (74-106) Calcium Level 9.2 MG/DL (8.5-10.1) 9.2 MG/DL (8.5-10.1) Phosphorus Level 4.3 MG/DL (2.5-4.9) 3.5 MG/DL (2.5-4.9) Magnesium Level 2.1 MG/DL (1.8-2.4) 1.9 MG/DL (1.8-2.4) Total Bilirubin 0.6 MG/DL (0.2-1.0) 0.7 MG/DL (0.2-1.0) Aspartate Amino Transf (AST/SGOT) 43 U/L (15-37) 54 U/L (15-37) Alanine Aminotransferase (ALT/SGPT) 66 U/L (12-78) 78 U/L (12-78) Alkaline Phosphatase 230 U/L (46-116) 237 U/L (46-116) C-Reactive Protein, Quantitative < 0.4 mg/dL (0.00-0.90) < 0.4 mg/dL (0.00-0.90) Pro-B-Type Natriuretic Peptide 81741 pg/mL (0-125) 35997 pg/mL (0-125) Total Protein 5.4 G/DL (6.4-8.2) 5.5 G/DL (6.4-8.2) Albumin 2.3 G/DL (3.4-5.0) 2.4 G/DL (3.4-5.0) Globulin 3.1 g/dL 3.1 g/dL Albumin/Globulin Ratio 0.7 (1.0-2.7) 0.8 (1.0-2.7) Nucleated Red Blood Cells 2 /100 WBC Random Vancomycin Level 20.8 ug/mL Prothrombin Time 15.2 SEC (9.30-11.50) Prothromb Time International Ratio 1.4 (0.9-1.1) Test 10/13/20 11:55 10/14/20 04:00 Body Fluid Source Peritoneal Body Fluid Volume 18 mL Body Fluid Appearance Hazy (Clear) Body Fluid RBC 8 /CUMM Body Fluid Total Nucleated Cells 13 /CUMM Body Fluid Polynuclear WBCs (%) 73 % Body Fluid Mononuclear WBCs (%) 24 % Body Fluid Mesothelial Cells (%) 3 % Body Fluid Comment White Blood Count 26.9 K/UL (4.8-10.8) Red Blood Count 3.15 M/UL (4.70-6.10) Hemoglobin 10.1 G/DL (14.2-18.0) Hematocrit 31.9 % (42.0-52.0) Mean Corpuscular Volume 102 FL (80-99) Mean Corpuscular Hemoglobin 32.2 PG (27.0-31.0) Mean Corpuscular Hemoglobin Concent 31.7 G/DL (32.0-36.0) Red Cell Distribution Width 22.2 % (11.6-14.8) Platelet Count 69 K/UL (150-450) Mean Platelet Volume 10.3 FL (6.5-10.1) Neutrophils (%) (Auto) % (45.0-75.0) Lymphocytes (%) (Auto) % (20.0-45.0) Monocytes (%) (Auto) % (1.0-10.0) Eosinophils (%) (Auto) % (0.0-3.0) Basophils (%) (Auto) % (0.0-2.0) Sodium Level 140 MMOL/L (136-145) Potassium Level 3.1 MMOL/L (3.5-5.1) Chloride Level 104 MMOL/L (98-107) Carbon Dioxide Level 22 MMOL/L (21-32) Anion Gap 14 mmol/L (5-15) Blood Urea Nitrogen 46 mg/dL (7-18) Creatinine 5.3 MG/DL (0.55-1.30) Estimat Glomerular Filtration Rate 12.8 mL/min (>60) Glucose Level 257 MG/DL (74-106) Calcium Level 9.0 MG/DL (8.5-10.1) Phosphorus Level 3.9 MG/DL (2.5-4.9) Magnesium Level 1.9 MG/DL (1.8-2.4) Total Bilirubin 0.8 MG/DL (0.2-1.0) Aspartate Amino Transf (AST/SGOT) 43 U/L (15-37) Alanine Aminotransferase (ALT/SGPT) 78 U/L (12-78) Alkaline Phosphatase 186 U/L (46-116) C-Reactive Protein, Quantitative < 0.4 mg/dL (0.00-0.90) Pro-B-Type Natriuretic Peptide 36474 pg/mL (0-125) Total Protein 5.4 G/DL (6.4-8.2) Albumin 2.3 G/DL (3.4-5.0) Globulin 3.1 g/dL Albumin/Globulin Ratio 0.7 (1.0-2.7) Height (Feet): 6 Height (Inches): 8.00 Weight (Pounds): 165 Objective Physical Exam: pt is camotose. Sedated HEENT: NC/AT. EOMI. Cardiovascular: Irregularly irregular rhythm. Resp: intubated on vent ++ Abdomen: Abdomen is soft, nondistended. Nd Skin: Intact. MSK: obtunded Neuro: limited exam Bert Ponce MD Oct 14, 2020 06:12
--- NOTE | 2020-10-14 07:28 | NUR ---
NURSE NOTES: Received report from KIRBY Loving. Patient is obtunded, opens eyes to pain, not tracking. ETT 7.5/24cm at lip line with vent setting ac 8, tv 500, fio2 30%, PEEP 5. Rt nare NGT intact; Nepro @ 40mL/hr. [place] catheter noted, draining with gravity to urometer with dark son urine with hematuria noted. Right IJ TLC intact and running Levophed 10mcg/min. Lt IJ dialysis catheter with pigtail noted, dressing clean, dry, and intact. Generalized edema noted. Pt on a P200 mattress. Bed locked and in lowest position, with call light within reach. Bed side rials padded for seizure precautions. Will continue plan of care.
--- NOTE | 2020-10-14 08:10 | Infectious Diseases Prog Note ---
Assessment/Plan 75 yo male with PMHx of failure to thrive, HTN, thalassemia, pancytopenia, HLD, Depression who was sent to the ED from his senior care for AMS. Septic Shock PNA Acute hypoxic resp failure sp VDRF -10/04 sp Cx - K. Pnaumo -10/01 sp cx S. aureus (MSSA), K. pna (r amp; otherwise S) -09/30 COVID PCr neg -09/30 CXR: Bibasilar atelectasis versus infiltrates CXR 09/29/20 - Left basilar atelectasis. No acute process otherwise. Evidence of old granulomatous disease rapid covid ag neg , PCR : neg S. epi bacteremia- contaminant vs real -10/03 Bcx NGTD -09/29 BCx 09/07 sets S. epi Leukocytosis; increased ( on steroids) No fever -09/30 ucx neg AMS -CT head: New NG tube and mid to distal esophagus. Recommend advancement. Bibasilar atelectasis versus infiltrates Lactic acidosis Failure to thrive HTN Thalassemia Pancytopenia HLD Depression Adenomatous colonic polyps PLAN Start Meropenem #4/7 and Vancomycin #4/7 f/u cultures f/u C. diff Repeat CXR - 10/10/20 SP Ceftriaxone # 5 for K. pneumo PNA - 10/06/20 SP Zosyn #7/7 - 10/03/20 SP Vancomycin #3 - Monitor CBC and Temps - BCx (periheral and line) - 2d echo Thank you for this consult. [facility] will continue to follow Mr. Vargas while he in hospitalized. Subjective Allergies: Coded Allergies: No Known Allergies (Unverified , 09/13/20) Afebrile WBCs decreasing today 2634 On Vent 30% O2 Still on Levophed Objective Last 24 Hour Vital Signs Date Time Temp Pulse Resp B/P (MAP) Pulse Ox O2 Delivery O2 Flow Rate FiO2 10/14/20 07:00 84 14 119/72 (88) 99 10/14/20 06:24 68 18 10/14/20 06:00 90 23 99 10/14/20 05:45 86 14 123/69 (87) 99 10/14/20 05:30 84 14 124/76 (92) 98 10/14/20 05:15 87 15 120/79 (93) 100 10/14/20 05:00 86 14 112/71 (85) 10/14/20 04:45 123 32 127/102 (110) 86 10/14/20 04:30 85 43 120/77 (91) 99 10/14/20 04:15 96 25 121/75 (90) 99 10/14/20 04:03 30 10/14/20 04:03 Mechanical Ventilator 10/14/20 04:00 86 34 117/71 (86) 99 10/14/20 03:55 80 10/14/20 03:45 81 35 120/72 (88) 99 10/14/20 03:30 84 46 120/74 (89) 98 10/14/20 03:15 95 14 30 10/14/20 03:15 84 34 108/74 (85) 99 10/14/20 03:00 82 26 119/72 (88) 98 10/14/20 02:45 82 42 120/72 (88) 98 10/14/20 02:30 83 41 119/72 (88) 98 10/14/20 02:15 75 40 118/71 (87) 99 10/14/20 02:00 76 33 117/74 (88) 99 10/14/20 01:30 73 40 115/71 (86) 98 10/14/20 01:15 75 34 116/69 (85) 98 10/14/20 01:00 78 43 112/71 (85) 99 10/14/20 00:45 81 30 114/72 (86) 98 10/14/20 00:30 81 26 116/70 (85) 98 10/14/20 00:15 79 28 115/72 (86) 99 10/14/20 00:15 79 28 115/72 (86) 99 10/14/20 00:00 79 27 118/71 (87) 98 10/14/20 00:00 79 27 118/71 (87) 98 10/14/20 00:00 92 10/14/20 00:00 Mechanical Ventilator 10/13/20 23:45 79 31 115/55 (75) 98 10/13/20 23:30 84 27 118/69 (85) 98 10/13/20 23:15 82 29 120/71 (87) 100 10/13/20 23:11 81 12 30 10/13/20 23:00 89 37 120/74 (89) 98 10/13/20 22:45 67 34 112/64 (80) 98 10/13/20 22:30 79 27 112/65 (81) 98 10/13/20 22:00 75 20 112/57 (75) 98 10/13/20 21:45 79 27 116/73 (87) 97 10/13/20 21:30 78 14 113/67 (82) 98 10/13/20 21:15 77 31 115/68 (84) 98 10/13/20 21:00 82 30 113/73 (86) 97 10/13/20 20:45 82 20 111/67 (82) 97 10/13/20 20:30 85 19 111/66 (81) 97 10/13/20 20:15 86 16 124/74 (91) 97 10/13/20 20:00 Mechanical Ventilator 10/13/20 20:00 30 10/13/20 20:00 66 10/13/20 20:00 64 31 106/62 (77) 97 10/13/20 19:45 65 21 108/61 (77) 97 10/13/20 19:30 66 23 106/63 (77) 97 10/13/20 19:06 90 11 30 10/13/20 19:00 118/73 10/13/20 19:00 79 21 118/73 (88) 96 10/13/20 18:00 82 20 123/78 (93) 97 10/13/20 18:00 123/78 10/13/20 17:00 85 18 116/74 (88) 97 10/13/20 17:00 116/74 10/13/20 16:03 81 10/13/20 16:00 116/67 10/13/20 16:00 30 10/13/20 16:00 98.0 84 15 116/67 (83) 95 10/13/20 16:00 Mechanical Ventilator 10/13/20 15:05 80 13 30 10/13/20 15:00 105/66 10/13/20 15:00 118 18 105/66 (79) 96 10/13/20 14:00 92 16 118/69 (85) 97 10/13/20 14:00 118/69 10/13/20 13:00 103/60 10/13/20 13:00 86 16 103/60 (74) 97 10/13/20 12:00 79 10/13/20 12:00 Mechanical Ventilator 10/13/20 12:00 30 10/13/20 12:00 97.5 89 16 109/64 (79) 98 10/13/20 12:00 109/64 10/13/20 11:30 96 16 108/64 (79) 98 10/13/20 11:15 86 14 30 10/13/20 11:00 96/61 10/13/20 11:00 86 15 96/61 (73) 98 10/13/20 10:45 100 16 101/61 (74) 98 10/13/20 10:30 94 16 100/60 (73) 98 10/13/20 10:15 91 15 105/60 (75) 97 10/13/20 10:00 110/72 10/13/20 10:00 129 22 110/72 (85) 98 10/13/20 09:45 97 16 105/64 (78) 10/13/20 09:30 104 17 98/69 (79) 10/13/20 09:16 137/80 10/13/20 09:15 105 18 137/80 (99) 10/13/20 09:00 72 24 110/64 (79) Height (Feet): 6 Height (Inches): 8.00 Weight (Pounds): 165 Gen: On Vent HEENT: NCAT, Intubated Pulm: RRR No accessory muscle use Abd: Soft, ND, + BS SKIN: Exposed skin normal in color no rash noted Microbiology Date/Time Source Procedure Growth Status 10/11/20 18:05 Stool Clostridium difficile Toxin Assay - Final Complete 10/11/20 12:40 Blood Blood Culture - Preliminary NO GROWTH AFTER 48 HOURS Resulted 10/11/20 12:30 Blood Blood Culture - Preliminary NO GROWTH AFTER 48 HOURS Resulted Laboratory Tests Test 10/13/20 09:30 10/13/20 11:55 10/14/20 04:00 Prothrombin Time 15.2 SEC (9.30-11.50) H Prothromb Time International Ratio 1.4 (0.9-1.1) H Activated Partial Thromboplast Time 32 SEC (23-33) Body Fluid Source Peritoneal Body Fluid Volume 18 mL Body Fluid Appearance Hazy (Clear) Body Fluid RBC 8 /CUMM Body Fluid Total Nucleated Cells 13 /CUMM Body Fluid Polynuclear WBCs (%) 73 % Body Fluid Mononuclear WBCs (%) 24 % Body Fluid Mesothelial Cells (%) 3 % Body Fluid Comment White Blood Count 26.9 K/UL (4.8-10.8) *H Red Blood Count 3.15 M/UL (4.70-6.10) L Hemoglobin 10.1 G/DL (14.2-18.0) L Hematocrit 31.9 % (42.0-52.0) L Mean Corpuscular Volume 102 FL (80-99) H Mean Corpuscular Hemoglobin 32.2 PG (27.0-31.0) H Mean Corpuscular Hemoglobin Concent 31.7 G/DL (32.0-36.0) L Red Cell Distribution Width 22.2 % (11.6-14.8) H Platelet Count 69 K/UL (150-450) L Mean Platelet Volume 10.3 FL (6.5-10.1) H Neutrophils (%) (Auto) % (45.0-75.0) Lymphocytes (%) (Auto) % (20.0-45.0) Monocytes (%) (Auto) % (1.0-10.0) Eosinophils (%) (Auto) % (0.0-3.0) Basophils (%) (Auto) % (0.0-2.0) Neutrophils % (Manual) Pending Lymphocytes % (Manual) Pending Platelet Estimate Pending Platelet Morphology Pending Sodium Level 140 MMOL/L (136-145) Potassium Level 3.1 MMOL/L (3.5-5.1) L Chloride Level 104 MMOL/L (98-107) Carbon Dioxide Level 22 MMOL/L (21-32) Anion Gap 14 mmol/L (5-15) Blood Urea Nitrogen 46 mg/dL (7-18) H Creatinine 5.3 MG/DL (0.55-1.30) H Estimat Glomerular Filtration Rate 12.8 mL/min (>60) Glucose Level 257 MG/DL (74-106) H Calcium Level 9.0 MG/DL (8.5-10.1) Phosphorus Level 3.9 MG/DL (2.5-4.9) Magnesium Level 1.9 MG/DL (1.8-2.4) Total Bilirubin 0.8 MG/DL (0.2-1.0) Aspartate Amino Transf (AST/SGOT) 43 U/L (15-37) H Alanine Aminotransferase (ALT/SGPT) 78 U/L (12-78) Alkaline Phosphatase 186 U/L (46-116) H C-Reactive Protein, Quantitative < 0.4 mg/dL (0.00-0.90) Pro-B-Type Natriuretic Peptide 25660 pg/mL (0-125) H Total Protein 5.4 G/DL (6.4-8.2) L Albumin 2.3 G/DL (3.4-5.0) L Globulin 3.1 g/dL Albumin/Globulin Ratio 0.7 (1.0-2.7) L Current Medications Medications (Trade) Dose Ordered Sig/Alfredo Route PRN Reason Start Time Stop Time Status Last Admin Dose Admin Acetaminophen (Tylenol) 650 mg EVERY 6 HOURS PRN NG Temp >100.5 09/30/20 02:30 10/30/20 02:29 Chlorhexidine Gluconate (Babita-Hex 2%) 1 applic DAILY@2000 TOPIC 09/30/20 20:00 12/29/20 19:59 10/13/20 20:28 Dextrose (Dextrose 50%) 25 ml Q30M PRN IV Hypoglycemia 09/30/20 02:30 12/29/20 02:29 Dextrose (Dextrose 50%) 50 ml Q30M PRN IV Hypoglycemia 09/30/20 02:30 12/29/20 02:29 Hydrocortisone (Solu-CORTEF) 100 mg EVERY 8 HOURS IV 09/30/20 14:00 12/29/20 13:59 10/14/20 06:00 Levetiracetam 100 ml @ 400 mls/hr Q12HR IVPB 10/12/20 21:00 01/10/21 20:59 10/13/20 20:56 Meropenem 500 mg/ Sodium Chloride 55 ml @ 110 mls/hr EVERY 12 HOURS IVPB 10/11/20 10:00 10/16/20 09:59 10/13/20 20:56 Metoclopramide HCl (Reglan) 5 mg Q6H IVP 10/10/20 12:00 11/09/20 11:59 10/14/20 06:00 Norepinephrine Bitartrate 16 mg/ Dextrose 500 ml @ 0 mls/hr Q24H PRN IV . 10/13/20 08:43 10/16/20 08:42 10/13/20 09:16 Pantoprazole (Protonix) 40 mg EVERY 12 HOURS IVP 10/07/20 21:00 11/06/20 20:59 10/13/20 20:51 Potassium Chloride (K-Dur) 20 meq EVERY 12 HOURS NG 10/13/20 21:00 01/11/21 17:59 10/13/20 20:57 [facility] 1 ea DAILY PRN MISC Per rx protocol 10/11/20 09:00 11/10/20 08:59 Yoel Ricketts MD Oct 14, 2020 08:10
[2020-10-14] MEDS: Pantoprazole Inj IVP SCH (08:33)
[2020-10-14] MEDS: levETIRAcetam 1,000mg/NS100ml 100 ML IVPB SCH ×2 (08:40→21:12)
[2020-10-14] MEDS: Meropenem 500 MG in NS 55 ML IVPB SCH ×2 (08:40→21:13)
--- NOTE | 2020-10-14 09:30 | NUR ---
NURSE NOTES: BHARGAVI Morrow doing his rounds. Updated him on pt's current condition.
--- NOTE | 2020-10-14 10:16 | NUR ---
NURSE NOTES: Dr. Benavidez on the unit making his rounds. Updated him on pt's current condition. Reglan discontinued d/t possibly causing twitching/involuntary movement. Will monitor.
--- NOTE | 2020-10-14 10:56 | Pulmonology Progress Note ---
Subjective ROS Limited/Unobtainable: Yes Interval Events: s/p paracentesis, 5.2L out Constitutional: Reports: no symptoms HEENT: Repors: no symptoms Respiratory: Reports: no symptoms Cardiovascular: Reports: no symptoms Gastrointestinal/Abdominal: Reports: no symptoms Genitourinary: Reports: no symptoms Allergies: Coded Allergies: No Known Allergies (Unverified , 09/13/20) All Systems: reviewed and negative except above Objective Last 24 Hour Vital Signs Date Time Temp Pulse Resp B/P (MAP) Pulse Ox O2 Delivery O2 Flow Rate FiO2 10/14/20 10:00 115/71 10/14/20 09:00 113/72 10/14/20 08:00 Mechanical Ventilator 10/14/20 08:00 30 10/14/20 08:00 97.1 90 15 130/74 (92) 99 10/14/20 08:00 113/71 10/14/20 07:51 91 14 30 10/14/20 07:45 87 14 114/72 (86) 99 10/14/20 07:30 89 15 130/76 (94) 99 10/14/20 07:00 84 14 119/72 (88) 99 10/14/20 07:00 116/76 10/14/20 06:24 68 18 10/14/20 06:00 90 23 99 10/14/20 05:45 86 14 123/69 (87) 99 10/14/20 05:30 84 14 124/76 (92) 98 10/14/20 05:15 87 15 120/79 (93) 100 10/14/20 05:00 86 14 112/71 (85) 10/14/20 04:45 123 32 127/102 (110) 86 10/14/20 04:30 85 43 120/77 (91) 99 10/14/20 04:15 96 25 121/75 (90) 99 10/14/20 04:03 30 10/14/20 04:03 Mechanical Ventilator 10/14/20 04:00 86 34 117/71 (86) 99 10/14/20 03:55 80 10/14/20 03:45 81 35 120/72 (88) 99 10/14/20 03:30 84 46 120/74 (89) 98 10/14/20 03:15 95 14 30 10/14/20 03:15 84 34 108/74 (85) 99 10/14/20 03:00 82 26 119/72 (88) 98 10/14/20 02:45 82 42 120/72 (88) 98 10/14/20 02:30 83 41 119/72 (88) 98 10/14/20 02:15 75 40 118/71 (87) 99 10/14/20 02:00 76 33 117/74 (88) 99 10/14/20 01:30 73 40 115/71 (86) 98 10/14/20 01:15 75 34 116/69 (85) 98 10/14/20 01:00 78 43 112/71 (85) 99 10/14/20 00:45 81 30 114/72 (86) 98 10/14/20 00:30 81 26 116/70 (85) 98 10/14/20 00:15 79 28 115/72 (86) 99 10/14/20 00:15 79 28 115/72 (86) 99 10/14/20 00:00 79 27 118/71 (87) 98 10/14/20 00:00 79 27 118/71 (87) 98 10/14/20 00:00 92 10/14/20 00:00 Mechanical Ventilator 10/13/20 23:45 79 31 115/55 (75) 98 10/13/20 23:30 84 27 118/69 (85) 98 10/13/20 23:15 82 29 120/71 (87) 100 10/13/20 23:11 81 12 30 10/13/20 23:00 89 37 120/74 (89) 98 10/13/20 22:45 67 34 112/64 (80) 98 10/13/20 22:30 79 27 112/65 (81) 98 10/13/20 22:00 75 20 112/57 (75) 98 10/13/20 21:45 79 27 116/73 (87) 97 10/13/20 21:30 78 14 113/67 (82) 98 10/13/20 21:15 77 31 115/68 (84) 98 10/13/20 21:00 82 30 113/73 (86) 97 10/13/20 20:45 82 20 111/67 (82) 97 10/13/20 20:30 85 19 111/66 (81) 97 10/13/20 20:15 86 16 124/74 (91) 97 10/13/20 20:00 Mechanical Ventilator 10/13/20 20:00 30 10/13/20 20:00 66 10/13/20 20:00 64 31 106/62 (77) 97 10/13/20 19:45 65 21 108/61 (77) 97 10/13/20 19:30 66 23 106/63 (77) 97 10/13/20 19:06 90 11 30 10/13/20 19:00 118/73 10/13/20 19:00 79 21 118/73 (88) 96 10/13/20 18:00 82 20 123/78 (93) 97 10/13/20 18:00 123/78 10/13/20 17:00 85 18 116/74 (88) 97 10/13/20 17:00 116/74 10/13/20 16:03 81 10/13/20 16:00 116/67 10/13/20 16:00 30 10/13/20 16:00 98.0 84 15 116/67 (83) 95 10/13/20 16:00 Mechanical Ventilator 10/13/20 15:05 80 13 30 10/13/20 15:00 105/66 10/13/20 15:00 118 18 105/66 (79) 96 10/13/20 14:00 92 16 118/69 (85) 97 10/13/20 14:00 118/69 10/13/20 13:00 103/60 10/13/20 13:00 86 16 103/60 (74) 97 10/13/20 12:00 79 10/13/20 12:00 Mechanical Ventilator 10/13/20 12:00 30 10/13/20 12:00 97.5 89 16 109/64 (79) 98 10/13/20 12:00 109/64 10/13/20 11:30 96 16 108/64 (79) 98 10/13/20 11:15 86 14 30 10/13/20 11:00 96/61 10/13/20 11:00 86 15 96/61 (73) 98 Intake and Output 10/13/20 10/14/20 19:00 07:00 Intake Total 837.50 ml 860.00 ml Output Total 10 ml Balance 827.50 ml 860.00 ml IV Total 437.50 ml 380.00 ml Tube Feeding 400 ml 480 ml Output Urine Total 10 ml # Bowel Movements 2 3 General Appearance: no acute distress HEENT: normocephalic Respiratory: chest wall non-tender Cardiovascular: normal peripheral pulses Abdomen: normal bowel sounds Neurologic: unresponsiveness Microbiology Date/Time Source Procedure Growth Status 10/13/20 11:55 Abdominal Fluid Gram Stain Pending Resulted 10/13/20 11:55 Abdominal Fluid Body Fluid Culture - Preliminary NO GROWTH Resulted 10/11/20 18:05 Stool Clostridium difficile Toxin Assay - Final Complete 10/11/20 12:40 Blood Blood Culture - Preliminary NO GROWTH AFTER 48 HOURS Resulted 10/11/20 12:30 Blood Blood Culture - Preliminary NO GROWTH AFTER 48 HOURS Resulted Laboratory Tests 10/13/20 11:55: Body Fluid Source Peritoneal, Body Fluid Volume 18, Body Fluid Appearance Hazy, Body Fluid RBC 8, Body Fluid Total Nucleated Cells 13, Body Fluid Polynuclear WBCs (%) 73, Body Fluid Mononuclear WBCs (%) 24, Body Fluid Mesothelial Cells (%) 3, Body Fluid Comment 10/14/20 04:00: White Blood Count 26.9*H, Red Blood Count 3.15L, Hemoglobin 10.1L, Hematocrit 31.9L, Mean Corpuscular Volume 102H, Mean Corpuscular Hemoglobin 32.2H, Mean Corpuscular Hemoglobin Concent 31.7L, Red Cell Distribution Width 22.2H, Platelet Count 69L, Mean Platelet Volume 10.3H, Neutrophils (%) (Auto) , Lymphocytes (%) (Auto) , Monocytes (%) (Auto) , Eosinophils (%) (Auto) , Basophils (%) (Auto) , Differential Total Cells Counted 100, Neutrophils % (Manual) 90H, Lymphocytes % (Manual) 2L, Monocytes % (Manual) 6, Eosinophils % (Manual) 0, Basophils % (Manual) 0, Band Neutrophils 2, Platelet Estimate DecreasedL, Platelet Morphology Normal, Hypochromasia 1+, Anisocytosis 2+, Macrocytosis 1+, Schistocytes 1+, Sodium Level 140, Potassium Level 3.1L, Chloride Level 104, Carbon Dioxide Level 22, Anion Gap 14, Blood Urea Nitrogen 46H, Creatinine 5.3H, Estimat Glomerular Filtration Rate 12.8, Glucose Level 257H, Calcium Level 9.0, Phosphorus Level 3.9, Magnesium Level 1.9, Total Bilirubin 0.8, Aspartate Amino Transf (AST/SGOT) 43H, Alanine Aminotransferase (ALT/SGPT) 78, Alkaline Phosphatase 186H, C-Reactive Protein, Quantitative < 0.4, Pro-B-Type Natriuretic Peptide 14273K, Total Protein 5.4L, Albumin 2.3L, Globulin 3.1, Albumin/Globulin Ratio 0.7L Current Medications Medications (Trade) Dose Ordered Sig/Alfredo Route PRN Reason Start Time Stop Time Status Last Admin Dose Admin Acetaminophen (Tylenol) 650 mg EVERY 6 HOURS PRN NG Temp >100.5 09/30/20 02:30 10/30/20 02:29 Chlorhexidine Gluconate (Babita-Hex 2%) 1 applic DAILY@2000 TOPIC 09/30/20 20:00 12/29/20 19:59 10/13/20 20:28 Dextrose (Dextrose 50%) 25 ml Q30M PRN IV Hypoglycemia 09/30/20 02:30 12/29/20 02:29 Dextrose (Dextrose 50%) 50 ml Q30M PRN IV Hypoglycemia 09/30/20 02:30 12/29/20 02:29 Hydrocortisone (Solu-CORTEF) 100 mg EVERY 8 HOURS IV 09/30/20 14:00 12/29/20 13:59 10/14/20 06:00 Levetiracetam 100 ml @ 400 mls/hr Q12HR IVPB 10/12/20 21:00 01/10/21 20:59 10/14/20 08:40 Meropenem 500 mg/ Sodium Chloride 55 ml @ 110 mls/hr EVERY 12 HOURS IVPB 10/11/20 10:00 10/16/20 09:59 10/14/20 08:40 Norepinephrine Bitartrate 16 mg/ Dextrose 500 ml @ 0 mls/hr Q24H PRN IV . 10/13/20 08:43 10/16/20 08:42 10/13/20 09:16 Pantoprazole (Protonix) 40 mg EVERY 12 HOURS IVP 10/07/20 21:00 11/06/20 20:59 10/14/20 08:33 Potassium Chloride 100 ml @ 50 mls/hr ONCE IVPB 10/14/20 10:00 10/14/20 11:00 10/14/20 10:33 Potassium Chloride (K-Dur) 40 meq EVERY 12 HOURS NG 10/14/20 21:00 01/11/21 20:59 Vancomycin HCl ([facility] pharmacy to dose) 1 ea DAILY PRN MISC Per rx protocol 10/11/20 09:00 11/10/20 08:59 Assessment/Plan Assessment/Plan 1. Respiratory failure. 2. Multiple medical problems consisting of hypertension, thalassemia, chronic pancreatitis, GERD, neuropathy, and depression. 3. Shock; on pressors 4. Acute renal failure and metabolic acidosis 5. Lactic acidemia 6. AMS; CT brain negative 7. Thrombocytopenia DISCUSSION: Pt is now DNR. Currently the patient is intubated. s/p dialysis Now FiO2 30%, PEEP 5 -> has failed weaning trials Continue IV fluids. Pressors prn DVT and GI prophylaxis. Broad-spectrum antibiotics. We will follow carefully. Bicarb supplementation ABG adequate Discussed with family He remains DNR but intubation OK Will not extubate given poor mental status and pressor usage The care of this patient was discussed with my supervising physician Time spent for this encounter was approximately 31 minutes Dioni Coats Oct 14, 2020 10:56
--- NOTE | 2020-10-14 11:01 | Nephrology Progress Note ---
Assessment/Plan Problem List: (1) COURTNEY (acute kidney injury) (2) Cardiopulmonary arrest (3) Respiratory failure (4) Septic shock Assessment Acute renal failure Septic shock Acute respiratory failure CODE STATUS now DNR Plan October 14: Labs reviewed. Discussed with Emelina ORR. Patient edematous. Scrotum edematous. Will arrange for hemodialysis and ultrafiltration with blood pressure support by increasing Levophed. Per orders. October 13: Labs reviewed. Discussed with KIRBY Sheldon.. Low potassium addressed. Dialyzed yesterday. Dialysis as needed. Weaning attempts versus tracheostomy per pulmonary. October 12: Labs reviewed. Discussed with KIRBY Tarango. Leukocytosis persists. Due for dialysis today. Patient DNR however remains intubated on ventilator. FiO2 30%. Continue per consultants. Continue dialysis as needed. October 11: Labs reviewed. Discussed with KIRBY Tarango. Leukocytosis persists. Low potassium addressed. Will order dialysis tomorrow. Continue per consultants. October 10: Patient was dialyzed yesterday. Today's labs reviewed. Abnormal electrolytes addressed. Medication list reviewed. Discussed with RN. Continue per consultants. October 09: Patient due for dialysis today. IV fluids stopped. Patient DNR. Abnormal electrolyte and the dialysis bath adjusted accordingly. Continue per consultants. October 08: Patient was last dialyzed yesterday. Intubated. DNR. Meds and labs reviewed. Potassium supplement given. Continue to monitor renal parameters and dialysis as needed. Patient remains only coanuric. October 07: Patient was dialyzed yesterday. Labs reviewed. Platelets low. Oozing from the site of the dialysis catheter. On low-dose of pressors. Will dialyze today. Will change Pepcid to Protonix IV. Will give DDAVP 50 mcg once. Discussed with KIRBY Tarango. October 06: Status unchanged. Seen in ICU. Discussed with RN. Dialysis catheter and dialysis procedure has not yet been done. Radiology to arrange for catheter insertion today followed by dialysis. Labs reviewed. Medication list reviewed. October 05: Status quo. Labs reviewed. Serum creatinine creeping up. Patient hemodynamically more stable today than a few days ago. Called brother and he is agreeable for a trial of dialysis treatment with the hope to reverse the acute component of the renal failure. Nontunneled catheter placement ordered. Dialysis ordered. Continue to monitor renal parameters. Medication list reviewed. Discussed with RN and charge nurse. October 04: Status quo. Intubated on ventilator. Labs reviewed. Serum creatinine is plateauing. Trial of Zaroxolyn and 25% albumin infusion given. Abnormal electrolytes addressed. Continue as is. October 03: Continues to be on 6 mics of Levophed. Urine output 350 cc past 24 hours. No urine output since this morning. Labs reviewed. Discussed with KIRBY Diallo. Albumin bolus given. Zaroxolyn 1 dose ordered. Serum creatinine appears to be leveling off. Continue to monitor renal parameters. Patient DNR. October 02: Remains on low-dose pressors today almost anuric. Discussed with KIRBY Shook. Labs reviewed. Medication list reviewed. Trial of albumin and Lasix. Continue to monitor renal parameters. Patient DNR. FiO2 40% October 01: Patient clinically more stable. Discussed with KIRBY Tarango. Patient off pressors. ABG improved. Serum creatinine worse. Will start the patient on Bicitra and allopurinol through NG tube. Continue to monitor renal parameters. Per orders. Patient currently DNR. Previously: Pulmonary support Pressors Antibiotics Hydrocortisone Per orders Subjective ROS Limited/Unobtainable: Yes Objective Objective Last 24 Hour Vital Signs Date Time Temp Pulse Resp B/P (MAP) Pulse Ox O2 Delivery O2 Flow Rate FiO2 10/14/20 10:00 115/71 10/14/20 09:00 113/72 10/14/20 08:00 Mechanical Ventilator 10/14/20 08:00 30 10/14/20 08:00 97.1 90 15 130/74 (92) 99 10/14/20 08:00 113/71 10/14/20 07:51 91 14 30 10/14/20 07:45 87 14 114/72 (86) 99 10/14/20 07:30 89 15 130/76 (94) 99 10/14/20 07:00 84 14 119/72 (88) 99 10/14/20 07:00 116/76 10/14/20 06:24 68 18 10/14/20 06:00 90 23 99 10/14/20 05:45 86 14 123/69 (87) 99 10/14/20 05:30 84 14 124/76 (92) 98 10/14/20 05:15 87 15 120/79 (93) 100 10/14/20 05:00 86 14 112/71 (85) 10/14/20 04:45 123 32 127/102 (110) 86 10/14/20 04:30 85 43 120/77 (91) 99 10/14/20 04:15 96 25 121/75 (90) 99 10/14/20 04:03 30 10/14/20 04:03 Mechanical Ventilator 10/14/20 04:00 86 34 117/71 (86) 99 10/14/20 03:55 80 10/14/20 03:45 81 35 120/72 (88) 99 10/14/20 03:30 84 46 120/74 (89) 98 10/14/20 03:15 95 14 30 10/14/20 03:15 84 34 108/74 (85) 99 10/14/20 03:00 82 26 119/72 (88) 98 10/14/20 02:45 82 42 120/72 (88) 98 10/14/20 02:30 83 41 119/72 (88) 98 10/14/20 02:15 75 40 118/71 (87) 99 10/14/20 02:00 76 33 117/74 (88) 99 10/14/20 01:30 73 40 115/71 (86) 98 10/14/20 01:15 75 34 116/69 (85) 98 10/14/20 01:00 78 43 112/71 (85) 99 10/14/20 00:45 81 30 114/72 (86) 98 10/14/20 00:30 81 26 116/70 (85) 98 10/14/20 00:15 79 28 115/72 (86) 99 10/14/20 00:15 79 28 115/72 (86) 99 10/14/20 00:00 79 27 118/71 (87) 98 10/14/20 00:00 79 27 118/71 (87) 98 10/14/20 00:00 92 10/14/20 00:00 Mechanical Ventilator 10/13/20 23:45 79 31 115/55 (75) 98 10/13/20 23:30 84 27 118/69 (85) 98 10/13/20 23:15 82 29 120/71 (87) 100 10/13/20 23:11 81 12 30 10/13/20 23:00 89 37 120/74 (89) 98 10/13/20 22:45 67 34 112/64 (80) 98 10/13/20 22:30 79 27 112/65 (81) 98 10/13/20 22:00 75 20 112/57 (75) 98 10/13/20 21:45 79 27 116/73 (87) 97 10/13/20 21:30 78 14 113/67 (82) 98 10/13/20 21:15 77 31 115/68 (84) 98 10/13/20 21:00 82 30 113/73 (86) 97 10/13/20 20:45 82 20 111/67 (82) 97 10/13/20 20:30 85 19 111/66 (81) 97 10/13/20 20:15 86 16 124/74 (91) 97 10/13/20 20:00 Mechanical Ventilator 10/13/20 20:00 30 10/13/20 20:00 66 10/13/20 20:00 64 31 106/62 (77) 97 10/13/20 19:45 65 21 108/61 (77) 97 10/13/20 19:30 66 23 106/63 (77) 97 10/13/20 19:06 90 11 30 10/13/20 19:00 118/73 10/13/20 19:00 79 21 118/73 (88) 96 10/13/20 18:00 82 20 123/78 (93) 97 10/13/20 18:00 123/78 10/13/20 17:00 85 18 116/74 (88) 97 10/13/20 17:00 116/74 10/13/20 16:03 81 10/13/20 16:00 116/67 10/13/20 16:00 30 10/13/20 16:00 98.0 84 15 116/67 (83) 95 10/13/20 16:00 Mechanical Ventilator 10/13/20 15:05 80 13 30 10/13/20 15:00 105/66 10/13/20 15:00 118 18 105/66 (79) 96 10/13/20 14:00 92 16 118/69 (85) 97 10/13/20 14:00 118/69 10/13/20 13:00 103/60 10/13/20 13:00 86 16 103/60 (74) 97 10/13/20 12:00 79 10/13/20 12:00 Mechanical Ventilator 10/13/20 12:00 30 10/13/20 12:00 97.5 89 16 109/64 (79) 98 10/13/20 12:00 109/64 10/13/20 11:30 96 16 108/64 (79) 98 10/13/20 11:15 86 14 30 10/13/20 11:00 96/61 10/13/20 11:00 86 15 96/61 (73) 98 Intake and Output 10/13/20 10/14/20 19:00 07:00 Intake Total 837.50 ml 860.00 ml Output Total 10 ml Balance 827.50 ml 860.00 ml IV Total 437.50 ml 380.00 ml Tube Feeding 400 ml 480 ml Output Urine Total 10 ml # Bowel Movements 2 3 Current Medications Medications (Trade) Dose Ordered Sig/Alfredo Route PRN Reason Start Time Stop Time Status Last Admin Dose Admin Acetaminophen (Tylenol) 650 mg EVERY 6 HOURS PRN NG Temp >100.5 09/30/20 02:30 10/30/20 02:29 Albumin Human 100 ml @ 100 mls/hr ONCE ONCE IV 10/14/20 11:00 10/14/20 11:59 UNV Chlorhexidine Gluconate (Babita-Hex 2%) 1 applic DAILY@2000 TOPIC 09/30/20 20:00 12/29/20 19:59 10/13/20 20:28 Dextrose (Dextrose 50%) 25 ml Q30M PRN IV Hypoglycemia 09/30/20 02:30 12/29/20 02:29 Dextrose (Dextrose 50%) 50 ml Q30M PRN IV Hypoglycemia 09/30/20 02:30 12/29/20 02:29 Hydrocortisone (Solu-CORTEF) 100 mg EVERY 8 HOURS IV 09/30/20 14:00 12/29/20 13:59 10/14/20 06:00 Lansoprazole (Prevacid) 30 mg Q12HR NG 10/14/20 21:00 11/13/20 20:59 Levetiracetam 100 ml @ 400 mls/hr Q12HR IVPB 10/12/20 21:00 01/10/21 20:59 10/14/20 08:40 Meropenem 500 mg/ Sodium Chloride 55 ml @ 110 mls/hr EVERY 12 HOURS IVPB 10/11/20 10:00 10/16/20 09:59 10/14/20 08:40 Norepinephrine Bitartrate 16 mg/ Dextrose 500 ml @ 0 mls/hr Q24H PRN IV . 10/13/20 08:43 10/16/20 08:42 10/13/20 09:16 Potassium Chloride 100 ml @ 50 mls/hr ONCE IVPB 10/14/20 10:00 10/14/20 11:00 10/14/20 10:33 Potassium Chloride (K-Dur) 40 meq EVERY 12 HOURS NG 10/14/20 21:00 01/11/21 20:59 [facility] 1 ea DAILY PRN MISC Per rx protocol 10/11/20 09:00 11/10/20 08:59 Laboratory Tests 10/13/20 11:55: Body Fluid Source Peritoneal, Body Fluid Volume 18, Body Fluid Appearance Hazy, Body Fluid RBC 8, Body Fluid Total Nucleated Cells 13, Body Fluid Polynuclear WBCs (%) 73, Body Fluid Mononuclear WBCs (%) 24, Body Fluid Mesothelial Cells (%) 3, Body Fluid Comment 10/14/20 04:00: White Blood Count 26.9*H, Red Blood Count 3.15L, Hemoglobin 10.1L, Hematocrit 31.9L, Mean Corpuscular Volume 102H, Mean Corpuscular Hemoglobin 32.2H, Mean Corpuscular Hemoglobin Concent 31.7L, Red Cell Distribution Width 22.2H, Platelet Count 69L, Mean Platelet Volume 10.3H, Neutrophils (%) (Auto) , Lymphocytes (%) (Auto) , Monocytes (%) (Auto) , Eosinophils (%) (Auto) , Basophils (%) (Auto) , Differential Total Cells Counted 100, Neutrophils % (Manual) 90H, Lymphocytes % (Manual) 2L, Monocytes % (Manual) 6, Eosinophils % (Manual) 0, Basophils % (Manual) 0, Band Neutrophils 2, Platelet Estimate DecreasedL, Platelet Morphology Normal, Hypochromasia 1+, Anisocytosis 2+, Macrocytosis 1+, Schistocytes 1+, Sodium Level 140, Potassium Level 3.1L, Chloride Level 104, Carbon Dioxide Level 22, Anion Gap 14, Blood Urea Nitrogen 46H, Creatinine 5.3H, Estimat Glomerular Filtration Rate 12.8, Glucose Level 257H, Calcium Level 9.0, Phosphorus Level 3.9, Magnesium Level 1.9, Total Bilirubin 0.8, Aspartate Amino Transf (AST/SGOT) 43H, Alanine Aminotransferase (ALT/SGPT) 78, Alkaline Phosphatase 186H, C-Reactive Protein, Quantitative < 0.4, Pro-B-Type Natriuretic Peptide 94013Z, Total Protein 5.4L, Albumin 2.3L, Globulin 3.1, Albumin/Globulin Ratio 0.7L Height (Feet): 6 Height (Inches): 8.00 Weight (Pounds): 165 General Appearance: no apparent distress EENT: other - On mechanical ventilation Cardiovascular: tachycardia Respiratory/Chest: decreased breath sounds Abdomen: distended Angel Whitehead MD Oct 14, 2020 11:01
--- NOTE | 2020-10-14 11:14 | NUR ---
NURSE NOTES: Updated Dr Whitehead on pt's current condition during his rounds. [facility] Nephrology called to schedule urgent hemodialysis for today, as ordered.
--- NOTE | 2020-10-14 13:02 | General Progress Note ---
Subjective ROS Limited/Unobtainable: No Allergies: Coded Allergies: No Known Allergies (Unverified , 09/13/20) Objective Last 24 Hour Vital Signs Date Time Temp Pulse Resp B/P (MAP) Pulse Ox O2 Delivery O2 Flow Rate FiO2 10/14/20 12:30 84 13 112/72 (85) 99 10/14/20 12:00 95 10/14/20 12:00 114/70 10/14/20 12:00 Mechanical Ventilator 10/14/20 12:00 97.0 90 16 114/70 (85) 99 10/14/20 12:00 30 10/14/20 11:30 86 13 113/69 (84) 99 10/14/20 11:09 89 15 30 10/14/20 11:00 84 13 116/72 (87) 99 10/14/20 11:00 116/72 10/14/20 10:30 89 13 98/57 (71) 99 10/14/20 10:00 115/71 10/14/20 10:00 89 14 109/66 (80) 99 10/14/20 09:30 84 13 109/68 (82) 99 10/14/20 09:00 88 15 110/71 (84) 99 10/14/20 09:00 113/72 10/14/20 08:00 Mechanical Ventilator 10/14/20 08:00 30 10/14/20 08:00 97.1 90 15 130/74 (92) 99 10/14/20 08:00 113/71 10/14/20 08:00 86 10/14/20 07:51 91 14 30 10/14/20 07:45 87 14 114/72 (86) 99 10/14/20 07:30 89 15 130/76 (94) 99 10/14/20 07:00 84 14 119/72 (88) 99 10/14/20 07:00 116/76 10/14/20 06:24 68 18 10/14/20 06:00 90 23 99 10/14/20 05:45 86 14 123/69 (87) 99 10/14/20 05:30 84 14 124/76 (92) 98 10/14/20 05:15 87 15 120/79 (93) 100 10/14/20 05:00 86 14 112/71 (85) 10/14/20 04:45 123 32 127/102 (110) 86 10/14/20 04:30 85 43 120/77 (91) 99 10/14/20 04:15 96 25 121/75 (90) 99 10/14/20 04:03 30 10/14/20 04:03 Mechanical Ventilator 10/14/20 04:00 86 34 117/71 (86) 99 10/14/20 03:55 80 10/14/20 03:45 81 35 120/72 (88) 99 10/14/20 03:30 84 46 120/74 (89) 98 10/14/20 03:15 95 14 30 10/14/20 03:15 84 34 108/74 (85) 99 10/14/20 03:00 82 26 119/72 (88) 98 10/14/20 02:45 82 42 120/72 (88) 98 10/14/20 02:30 83 41 119/72 (88) 98 10/14/20 02:15 75 40 118/71 (87) 99 10/14/20 02:00 76 33 117/74 (88) 99 10/14/20 01:30 73 40 115/71 (86) 98 10/14/20 01:15 75 34 116/69 (85) 98 10/14/20 01:00 78 43 112/71 (85) 99 10/14/20 00:45 81 30 114/72 (86) 98 10/14/20 00:30 81 26 116/70 (85) 98 10/14/20 00:15 79 28 115/72 (86) 99 10/14/20 00:15 79 28 115/72 (86) 99 10/14/20 00:00 79 27 118/71 (87) 98 10/14/20 00:00 79 27 118/71 (87) 98 10/14/20 00:00 92 10/14/20 00:00 Mechanical Ventilator 10/13/20 23:45 79 31 115/55 (75) 98 10/13/20 23:30 84 27 118/69 (85) 98 10/13/20 23:15 82 29 120/71 (87) 100 10/13/20 23:11 81 12 30 10/13/20 23:00 89 37 120/74 (89) 98 10/13/20 22:45 67 34 112/64 (80) 98 10/13/20 22:30 79 27 112/65 (81) 98 10/13/20 22:00 75 20 112/57 (75) 98 10/13/20 21:45 79 27 116/73 (87) 97 10/13/20 21:30 78 14 113/67 (82) 98 10/13/20 21:15 77 31 115/68 (84) 98 10/13/20 21:00 82 30 113/73 (86) 97 10/13/20 20:45 82 20 111/67 (82) 97 10/13/20 20:30 85 19 111/66 (81) 97 10/13/20 20:15 86 16 124/74 (91) 97 10/13/20 20:00 Mechanical Ventilator 10/13/20 20:00 30 10/13/20 20:00 66 10/13/20 20:00 64 31 106/62 (77) 97 10/13/20 19:45 65 21 108/61 (77) 97 10/13/20 19:30 66 23 106/63 (77) 97 10/13/20 19:06 90 11 30 10/13/20 19:00 118/73 10/13/20 19:00 79 21 118/73 (88) 96 10/13/20 18:00 82 20 123/78 (93) 97 10/13/20 18:00 123/78 10/13/20 17:00 85 18 116/74 (88) 97 10/13/20 17:00 116/74 10/13/20 16:03 81 10/13/20 16:00 116/67 10/13/20 16:00 30 10/13/20 16:00 98.0 84 15 116/67 (83) 95 10/13/20 16:00 Mechanical Ventilator 10/13/20 15:05 80 13 30 10/13/20 15:00 105/66 10/13/20 15:00 118 18 105/66 (79) 96 10/13/20 14:00 92 16 118/69 (85) 97 10/13/20 14:00 118/69 Intake and Output 10/13/20 10/14/20 19:00 07:00 Intake Total 837.50 ml 860.00 ml Output Total 10 ml Balance 827.50 ml 860.00 ml IV Total 437.50 ml 380.00 ml Tube Feeding 400 ml 480 ml Output Urine Total 10 ml # Bowel Movements 2 3 Laboratory Tests 10/14/20 04:00: White Blood Count 26.9*H, Red Blood Count 3.15L, Hemoglobin 10.1L, Hematocrit 31.9L, Mean Corpuscular Volume 102H, Mean Corpuscular Hemoglobin 32.2H, Mean Corpuscular Hemoglobin Concent 31.7L, Red Cell Distribution Width 22.2H, Platelet Count 69L, Mean Platelet Volume 10.3H, Neutrophils (%) (Auto) , Lymphocytes (%) (Auto) , Monocytes (%) (Auto) , Eosinophils (%) (Auto) , Basophils (%) (Auto) , Differential Total Cells Counted 100, Neutrophils % (Manual) 90H, Lymphocytes % (Manual) 2L, Monocytes % (Manual) 6, Eosinophils % (Manual) 0, Basophils % (Manual) 0, Band Neutrophils 2, Platelet Estimate DecreasedL, Platelet Morphology Normal, Hypochromasia 1+, Anisocytosis 2+, Macrocytosis 1+, Schistocytes 1+, Sodium Level 140, Potassium Level 3.1L, Chloride Level 104, Carbon Dioxide Level 22, Anion Gap 14, Blood Urea Nitrogen 46H, Creatinine 5.3H, Estimat Glomerular Filtration Rate 12.8, Glucose Level 257H, Calcium Level 9.0, Phosphorus Level 3.9, Magnesium Level 1.9, Total Bilirubin 0.8, Aspartate Amino Transf (AST/SGOT) 43H, Alanine Aminotransferase (ALT/SGPT) 78, Alkaline Phosphatase 186H, C-Reactive Protein, Quantitative < 0.4, Pro-B-Type Natriuretic Peptide 23286B, Total Protein 5.4L, Albumin 2.3L, Globulin 3.1, Albumin/Globulin Ratio 0.7L Height (Feet): 6 Height (Inches): 8.00 Weight (Pounds): 165 General Appearance: lethargic EENT: normal ENT inspection Neck: supple Cardiovascular: normal rate Respiratory/Chest: decreased breath sounds Abdomen: normal bowel sounds, non tender, soft Extremities: non-tender Assessment/Plan Status: unchanged Assessment/Plan: 1. History of thalassemia. 2. Hypertension. 3. Chronic pancreatitis. 4. Dyslipidemia. 5. Atherosclerosis. 6. GERD. 7. Renal cyst. 8. Peripheral neuropathy. 9. History of colonic polyps. 10. Depression. 11. respiratory failure 12. renal failure 13 anemia 14.ascites ngtf s/p paracentesis on reglan for elevated residuals>>>will dc repeat labs hepatitis panel ammonia level Nando Lyles MD Oct 14, 2020 13:02
[2020-10-14] MEDS: Norepinephrine Bitartrate 16 MG in D5W 500ml 484 ML IV PRN (13:05)
--- NOTE | 2020-10-14 14:13 | Surgery Progress Note ---
Surgery Progress Note Subjective Additional Comments non responsive on vent no n/v labs noted exam unchanged Objective Last 24 Hour Vital Signs Date Time Temp Pulse Resp B/P (MAP) Pulse Ox O2 Delivery O2 Flow Rate FiO2 10/14/20 13:05 105/73 10/14/20 13:00 105/73 10/14/20 13:00 83 13 105/73 (84) 99 10/14/20 12:30 84 13 112/72 (85) 99 10/14/20 12:00 95 10/14/20 12:00 114/70 10/14/20 12:00 Mechanical Ventilator 10/14/20 12:00 97.0 90 16 114/70 (85) 99 10/14/20 12:00 30 10/14/20 11:30 86 13 113/69 (84) 99 10/14/20 11:09 89 15 30 10/14/20 11:00 84 13 116/72 (87) 99 10/14/20 11:00 116/72 10/14/20 10:30 89 13 98/57 (71) 99 10/14/20 10:00 115/71 10/14/20 10:00 89 14 109/66 (80) 99 10/14/20 09:30 84 13 109/68 (82) 99 10/14/20 09:00 88 15 110/71 (84) 99 10/14/20 09:00 113/72 10/14/20 08:00 Mechanical Ventilator 10/14/20 08:00 30 10/14/20 08:00 97.1 90 15 130/74 (92) 99 10/14/20 08:00 113/71 10/14/20 08:00 86 10/14/20 07:51 91 14 30 10/14/20 07:45 87 14 114/72 (86) 99 10/14/20 07:30 89 15 130/76 (94) 99 10/14/20 07:00 84 14 119/72 (88) 99 10/14/20 07:00 116/76 10/14/20 06:24 68 18 10/14/20 06:00 90 23 99 10/14/20 05:45 86 14 123/69 (87) 99 10/14/20 05:30 84 14 124/76 (92) 98 10/14/20 05:15 87 15 120/79 (93) 100 10/14/20 05:00 86 14 112/71 (85) 10/14/20 04:45 123 32 127/102 (110) 86 10/14/20 04:30 85 43 120/77 (91) 99 10/14/20 04:15 96 25 121/75 (90) 99 10/14/20 04:03 30 10/14/20 04:03 Mechanical Ventilator 10/14/20 04:00 86 34 117/71 (86) 99 10/14/20 03:55 80 10/14/20 03:45 81 35 120/72 (88) 99 10/14/20 03:30 84 46 120/74 (89) 98 10/14/20 03:15 95 14 30 10/14/20 03:15 84 34 108/74 (85) 99 10/14/20 03:00 82 26 119/72 (88) 98 10/14/20 02:45 82 42 120/72 (88) 98 10/14/20 02:30 83 41 119/72 (88) 98 10/14/20 02:15 75 40 118/71 (87) 99 10/14/20 02:00 76 33 117/74 (88) 99 10/14/20 01:30 73 40 115/71 (86) 98 10/14/20 01:15 75 34 116/69 (85) 98 10/14/20 01:00 78 43 112/71 (85) 99 10/14/20 00:45 81 30 114/72 (86) 98 10/14/20 00:30 81 26 116/70 (85) 98 10/14/20 00:15 79 28 115/72 (86) 99 10/14/20 00:15 79 28 115/72 (86) 99 10/14/20 00:00 79 27 118/71 (87) 98 10/14/20 00:00 79 27 118/71 (87) 98 10/14/20 00:00 92 10/14/20 00:00 Mechanical Ventilator 10/13/20 23:45 79 31 115/55 (75) 98 10/13/20 23:30 84 27 118/69 (85) 98 10/13/20 23:15 82 29 120/71 (87) 100 10/13/20 23:11 81 12 30 10/13/20 23:00 89 37 120/74 (89) 98 10/13/20 22:45 67 34 112/64 (80) 98 10/13/20 22:30 79 27 112/65 (81) 98 10/13/20 22:00 75 20 112/57 (75) 98 10/13/20 21:45 79 27 116/73 (87) 97 10/13/20 21:30 78 14 113/67 (82) 98 10/13/20 21:15 77 31 115/68 (84) 98 10/13/20 21:00 82 30 113/73 (86) 97 10/13/20 20:45 82 20 111/67 (82) 97 10/13/20 20:30 85 19 111/66 (81) 97 10/13/20 20:15 86 16 124/74 (91) 97 10/13/20 20:00 Mechanical Ventilator 10/13/20 20:00 30 10/13/20 20:00 66 10/13/20 20:00 64 31 106/62 (77) 97 10/13/20 19:45 65 21 108/61 (77) 97 10/13/20 19:30 66 23 106/63 (77) 97 10/13/20 19:06 90 11 30 10/13/20 19:00 118/73 10/13/20 19:00 79 21 118/73 (88) 96 10/13/20 18:00 82 20 123/78 (93) 97 10/13/20 18:00 123/78 10/13/20 17:00 85 18 116/74 (88) 97 10/13/20 17:00 116/74 10/13/20 16:03 81 10/13/20 16:00 116/67 10/13/20 16:00 30 10/13/20 16:00 98.0 84 15 116/67 (83) 95 10/13/20 16:00 Mechanical Ventilator 10/13/20 15:05 80 13 30 10/13/20 15:00 105/66 10/13/20 15:00 118 18 105/66 (79) 96 I&O Intake and Output 10/13/20 10/14/20 19:00 07:00 Intake Total 837.50 ml 860.00 ml Output Total 10 ml Balance 827.50 ml 860.00 ml IV Total 437.50 ml 380.00 ml Tube Feeding 400 ml 480 ml Output Urine Total 10 ml # Bowel Movements 2 3 Dressing: saturated Cardiovascular: RSR Respiratory: decreased breath sounds Abdomen: non-tender, present bowel sounds, non-distended Extremities: no tenderness, no cyanosis Laboratory Tests Test 10/14/20 04:00 White Blood Count 26.9 K/UL (4.8-10.8) *H Red Blood Count 3.15 M/UL (4.70-6.10) L Hemoglobin 10.1 G/DL (14.2-18.0) L Hematocrit 31.9 % (42.0-52.0) L Mean Corpuscular Volume 102 FL (80-99) H Mean Corpuscular Hemoglobin 32.2 PG (27.0-31.0) H Mean Corpuscular Hemoglobin Concent 31.7 G/DL (32.0-36.0) L Red Cell Distribution Width 22.2 % (11.6-14.8) H Platelet Count 69 K/UL (150-450) L Mean Platelet Volume 10.3 FL (6.5-10.1) H Neutrophils (%) (Auto) % (45.0-75.0) Lymphocytes (%) (Auto) % (20.0-45.0) Monocytes (%) (Auto) % (1.0-10.0) Eosinophils (%) (Auto) % (0.0-3.0) Basophils (%) (Auto) % (0.0-2.0) Differential Total Cells Counted 100 Neutrophils % (Manual) 90 % (45-75) H Lymphocytes % (Manual) 2 % (20-45) L Monocytes % (Manual) 6 % (1-10) Eosinophils % (Manual) 0 % (0-3) Basophils % (Manual) 0 % (0-2) Band Neutrophils 2 % (0-8) Platelet Estimate Decreased L Platelet Morphology Normal Hypochromasia 1+ Anisocytosis 2+ Macrocytosis 1+ Schistocytes 1+ Sodium Level 140 MMOL/L (136-145) Potassium Level 3.1 MMOL/L (3.5-5.1) L Chloride Level 104 MMOL/L (98-107) Carbon Dioxide Level 22 MMOL/L (21-32) Anion Gap 14 mmol/L (5-15) Blood Urea Nitrogen 46 mg/dL (7-18) H Creatinine 5.3 MG/DL (0.55-1.30) H Estimat Glomerular Filtration Rate 12.8 mL/min (>60) Glucose Level 257 MG/DL (74-106) H Calcium Level 9.0 MG/DL (8.5-10.1) Phosphorus Level 3.9 MG/DL (2.5-4.9) Magnesium Level 1.9 MG/DL (1.8-2.4) Total Bilirubin 0.8 MG/DL (0.2-1.0) Aspartate Amino Transf (AST/SGOT) 43 U/L (15-37) H Alanine Aminotransferase (ALT/SGPT) 78 U/L (12-78) Alkaline Phosphatase 186 U/L (46-116) H C-Reactive Protein, Quantitative < 0.4 mg/dL (0.00-0.90) Pro-B-Type Natriuretic Peptide 78104 pg/mL (0-125) H Total Protein 5.4 G/DL (6.4-8.2) L Albumin 2.3 G/DL (3.4-5.0) L Globulin 3.1 g/dL Albumin/Globulin Ratio 0.7 (1.0-2.7) L Plan Problems: (1) Cardiopulmonary arrest (2) Septic shock Assessment & Plan: 75 male leukocytosis lactic acidosis septic shock intubated intensive care unit. Unable to give abdominal exam, exam otherwise benign abdominal unlikely etiology imaging reviewed labs reviewed. Continue ventilator support respiratory in nature seemingly. NG tube IV fluids IV antibiotics will follow with recommendations thank you letter participation's care bleeding from HD cath site ddavp ordered will monitor DAILY ESTIMATED NEEDS: Needs based on Critical care 74.2kg 22-28 kcals/kg 4876-6525 total kcals 1.2-2 g protein/kg 89-148 g total protein 25-30 mL/kg 0762-6448 total fluid mLs NUTRITION DIAGNOSIS: Swallowing difficulty r/t respiratory arrest as evidenced by pt intubated, on pressor support, ICU status. ENTERAL NUTRITION RECOMMENDATIONS: As able NEPRO @40ml/hr x24 hrs to provide 960ml, 1728 kcal, 78g pro, 698ml free H2O -When stable for feeds rec renal formula at this time d/t increasing K and phos. -obtain GI access, initiate Nepro @20ml/hr for 6 hrs, advance as tolerated 10ml/hr 2q4-6 hrs to goal -When tolerating TF at goal, add prosource 1 pack BID to better meet est pro needs. -Flush per . HOB over 30 degrees. ----> If hemodynamically unstable, rec trophic feeds of Nepro @10ml/hr to maintain gut integrity. ADDITIONAL RECOMMENDATIONS: 1) F/up w/ H&P 2) Maintain D5 IV hydration while NPO 3) Maintain calibrated bed scale wts 4) Non oral feeds when stable (3) Lactic acidosis (4) Failure to thrive (5) Pancytopenia (6) Respiratory failure (7) Hypoxia (8) Pneumonia (9) Respiratory arrest (10) Hypernatremia (11) Renal failure Oni Walker Oct 14, 2020 14:13
--- NOTE | 2020-10-14 14:40 | NUR ---
NURSE NOTES: Stacy, Neuro HAND LEATHER TRIMMER at bedside assessing pt. Updated her on pt's current condition. Stacy confirmed the twitching that is noted, does not appear to be seizures.
--- NOTE | 2020-10-14 14:46 | Neurology Progress Note ---
Interim History Interim History ROS Limited/Unobtainable: No Events: rounded with RN has involuntary movement Objective Physical Exam Last Vital Signs Date Time Temp Pulse Resp B/P (MAP) Pulse Ox O2 Delivery O2 Flow Rate FiO2 10/14/20 13:05 105/73 10/14/20 13:00 83 13 99 10/14/20 12:00 Mechanical Ventilator 10/14/20 12:00 97.0 10/14/20 12:00 30 Laboratory Tests Test 10/14/20 04:00 White Blood Count 26.9 K/UL (4.8-10.8) *H Red Blood Count 3.15 M/UL (4.70-6.10) L Hemoglobin 10.1 G/DL (14.2-18.0) L Hematocrit 31.9 % (42.0-52.0) L Mean Corpuscular Volume 102 FL (80-99) H Mean Corpuscular Hemoglobin 32.2 PG (27.0-31.0) H Mean Corpuscular Hemoglobin Concent 31.7 G/DL (32.0-36.0) L Red Cell Distribution Width 22.2 % (11.6-14.8) H Platelet Count 69 K/UL (150-450) L Mean Platelet Volume 10.3 FL (6.5-10.1) H Neutrophils (%) (Auto) % (45.0-75.0) Lymphocytes (%) (Auto) % (20.0-45.0) Monocytes (%) (Auto) % (1.0-10.0) Eosinophils (%) (Auto) % (0.0-3.0) Basophils (%) (Auto) % (0.0-2.0) Differential Total Cells Counted 100 Neutrophils % (Manual) 90 % (45-75) H Lymphocytes % (Manual) 2 % (20-45) L Monocytes % (Manual) 6 % (1-10) Eosinophils % (Manual) 0 % (0-3) Basophils % (Manual) 0 % (0-2) Band Neutrophils 2 % (0-8) Platelet Estimate Decreased L Platelet Morphology Normal Hypochromasia 1+ Anisocytosis 2+ Macrocytosis 1+ Schistocytes 1+ Sodium Level 140 MMOL/L (136-145) Potassium Level 3.1 MMOL/L (3.5-5.1) L Chloride Level 104 MMOL/L (98-107) Carbon Dioxide Level 22 MMOL/L (21-32) Anion Gap 14 mmol/L (5-15) Blood Urea Nitrogen 46 mg/dL (7-18) H Creatinine 5.3 MG/DL (0.55-1.30) H Estimat Glomerular Filtration Rate 12.8 mL/min (>60) Glucose Level 257 MG/DL (74-106) H Calcium Level 9.0 MG/DL (8.5-10.1) Phosphorus Level 3.9 MG/DL (2.5-4.9) Magnesium Level 1.9 MG/DL (1.8-2.4) Total Bilirubin 0.8 MG/DL (0.2-1.0) Aspartate Amino Transf (AST/SGOT) 43 U/L (15-37) H Alanine Aminotransferase (ALT/SGPT) 78 U/L (12-78) Alkaline Phosphatase 186 U/L (46-116) H C-Reactive Protein, Quantitative < 0.4 mg/dL (0.00-0.90) Pro-B-Type Natriuretic Peptide 67004 pg/mL (0-125) H Total Protein 5.4 G/DL (6.4-8.2) L Albumin 2.3 G/DL (3.4-5.0) L Globulin 3.1 g/dL Albumin/Globulin Ratio 0.7 (1.0-2.7) L Neurologic Exam Objective Physical Exam: Limited due to patients status unresponsive comatose, Pupils are sluggish, pupils not reactive corneal reflex absent, gag reflex absent facial symmetric motor: involuntary movement in head and neck sensory responses to suctioning thru trach not to pain. Impression/Recommendations Status: unchanged Diagnostic Impression Imaging: EEG reviewed CT Head: No evidence of acute intracranial hemorrhage, mass effect or cortical edema. MRI recommended for more sensitive evaluation as clinically indicated. Atrophy and nonspecific periventricular hypoattenuation suggestive of chronic ischemic microvascular changes. Assessment And Rec's 1. Anoxic Encephalopathy --> EEG consistent with seizure activity --> S/p recent CODE Blue and intubation --> CT head reviewed as above --> chances of recovery are small, pt has a poor prognosis. Discussed with brother Brayan. 2. Abnormal EEG --> Possible subclinical seizure activity, it is not definitive --> Will start patient on presumptive seizure medication, Agree to continue with Keppra will increase to 1000mg IV BID 3. Acute hypoxemic respiratory failure --> s/p intubation on vent 4. Questionable Pneumonia vs other ---> on abx --> Covid Ag is NEGATIVE, PCR not detected 5. Anemia 6. FTT --> Supportive care 7. CKD --> HD 8. Ascites --> s/p paracentesis Thank you for allowing us to participate in patient's care, plan of care was discussed with Dr. Jose Armando Camarena who agrees and has reviewed EEG results. Stacy Hinds NP Oct 14, 2020 14:46
--- NOTE | 2020-10-14 15:10 | Internal Med Progress Note ---
Subjective Physician Name Ken Hutton Attending Physician Ken Hutton MD Current Medications Medications (Trade) Dose Ordered Sig/Alfredo Route PRN Reason Start Time Stop Time Status Last Admin Dose Admin Acetaminophen (Tylenol) 650 mg EVERY 6 HOURS PRN NG Temp >100.5 09/30/20 02:30 10/30/20 02:29 Chlorhexidine Gluconate (Babita-Hex 2%) 1 applic DAILY@2000 TOPIC 09/30/20 20:00 12/29/20 19:59 10/13/20 20:28 Dextrose (Dextrose 50%) 25 ml Q30M PRN IV Hypoglycemia 09/30/20 02:30 12/29/20 02:29 Dextrose (Dextrose 50%) 50 ml Q30M PRN IV Hypoglycemia 09/30/20 02:30 12/29/20 02:29 Hydrocortisone (Solu-CORTEF) 100 mg EVERY 8 HOURS IV 09/30/20 14:00 12/29/20 13:59 10/14/20 13:08 Lansoprazole (Prevacid) 30 mg Q12HR NG 10/14/20 21:00 11/13/20 20:59 Levetiracetam 100 ml @ 400 mls/hr Q12HR IVPB 10/12/20 21:00 01/10/21 20:59 10/14/20 08:40 Meropenem 500 mg/ Sodium Chloride 55 ml @ 110 mls/hr EVERY 12 HOURS IVPB 10/11/20 10:00 10/16/20 09:59 10/14/20 08:40 Norepinephrine Bitartrate 16 mg/ Dextrose 500 ml @ 0 mls/hr Q24H PRN IV . 10/13/20 08:43 10/16/20 08:42 10/14/20 13:05 Potassium Chloride (K-Dur) 40 meq EVERY 12 HOURS NG 10/14/20 21:00 01/11/21 20:59 Vancomycin HCl ([facility] pharmacy to dose) 1 ea DAILY PRN MISC Per rx protocol 10/11/20 09:00 11/10/20 08:59 Allergies: Coded Allergies: No Known Allergies (Unverified , 09/13/20) Subjective in ICU, intubated, unresponsive, remained on ventilation, WBC: 26.9, involuntary head moving. Objective Last Vital Signs Date Time Temp Pulse Resp B/P (MAP) Pulse Ox O2 Delivery O2 Flow Rate FiO2 10/14/20 14:30 83 14 118/75 (89) 99 10/14/20 12:00 Mechanical Ventilator 10/14/20 12:00 97.0 10/14/20 12:00 30 Laboratory Tests Test 10/14/20 04:00 White Blood Count 26.9 K/UL (4.8-10.8) *H Red Blood Count 3.15 M/UL (4.70-6.10) L Hemoglobin 10.1 G/DL (14.2-18.0) L Hematocrit 31.9 % (42.0-52.0) L Mean Corpuscular Volume 102 FL (80-99) H Mean Corpuscular Hemoglobin 32.2 PG (27.0-31.0) H Mean Corpuscular Hemoglobin Concent 31.7 G/DL (32.0-36.0) L Red Cell Distribution Width 22.2 % (11.6-14.8) H Platelet Count 69 K/UL (150-450) L Mean Platelet Volume 10.3 FL (6.5-10.1) H Neutrophils (%) (Auto) % (45.0-75.0) Lymphocytes (%) (Auto) % (20.0-45.0) Monocytes (%) (Auto) % (1.0-10.0) Eosinophils (%) (Auto) % (0.0-3.0) Basophils (%) (Auto) % (0.0-2.0) Differential Total Cells Counted 100 Neutrophils % (Manual) 90 % (45-75) H Lymphocytes % (Manual) 2 % (20-45) L Monocytes % (Manual) 6 % (1-10) Eosinophils % (Manual) 0 % (0-3) Basophils % (Manual) 0 % (0-2) Band Neutrophils 2 % (0-8) Platelet Estimate Decreased L Platelet Morphology Normal Hypochromasia 1+ Anisocytosis 2+ Macrocytosis 1+ Schistocytes 1+ Sodium Level 140 MMOL/L (136-145) Potassium Level 3.1 MMOL/L (3.5-5.1) L Chloride Level 104 MMOL/L (98-107) Carbon Dioxide Level 22 MMOL/L (21-32) Anion Gap 14 mmol/L (5-15) Blood Urea Nitrogen 46 mg/dL (7-18) H Creatinine 5.3 MG/DL (0.55-1.30) H Estimat Glomerular Filtration Rate 12.8 mL/min (>60) Glucose Level 257 MG/DL (74-106) H Calcium Level 9.0 MG/DL (8.5-10.1) Phosphorus Level 3.9 MG/DL (2.5-4.9) Magnesium Level 1.9 MG/DL (1.8-2.4) Total Bilirubin 0.8 MG/DL (0.2-1.0) Aspartate Amino Transf (AST/SGOT) 43 U/L (15-37) H Alanine Aminotransferase (ALT/SGPT) 78 U/L (12-78) Alkaline Phosphatase 186 U/L (46-116) H C-Reactive Protein, Quantitative < 0.4 mg/dL (0.00-0.90) Pro-B-Type Natriuretic Peptide 85662 pg/mL (0-125) H Total Protein 5.4 G/DL (6.4-8.2) L Albumin 2.3 G/DL (3.4-5.0) L Globulin 3.1 g/dL Albumin/Globulin Ratio 0.7 (1.0-2.7) L Microbiology Date/Time Source Procedure Growth Status 10/13/20 11:55 Abdominal Fluid Gram Stain - Final Resulted 10/13/20 11:55 Abdominal Fluid Body Fluid Culture - Preliminary NO GROWTH Resulted 10/11/20 18:05 Stool Clostridium difficile Toxin Assay - Final Complete Intake and Output 10/13/20 10/14/20 19:00 07:00 Intake Total 837.50 ml 860.00 ml Output Total 10 ml Balance 827.50 ml 860.00 ml IV Total 437.50 ml 380.00 ml Tube Feeding 400 ml 480 ml Output Urine Total 10 ml # Bowel Movements 2 3 Objective General Appearance: In Ventilation, unresponsive, lethargic, unable to F/U with Commands. Lines, tubes and drains: central line - R IJ,and dialysis catheter -left IJ. HEENT: normocephalic, atraumatic,Pupils are 2 mm and sluggish reaction to l ight, ET tube, NGT. Neck: Supple, No JVD. Respiratory/Chest: Mechanical breath sound, No wheeze or rales. Cardiovascular/Chest: S1, S2 RR, No Murmur. Abdomen: Soft not distended, no mass, hypoactive bowel sounds Extremities: +2 extremities edema. Neurologic: Limited due to patient status, unresponsiveness, Facette X 4 extremities. Assessment/Plan Assessment/Plan 75 y/o Male admitted to the Hospital with; # AMS # Anoxic encephalopathy # Acute hypoxemic respiratory failure # Respiratory acidosis. ABG monitoring. Intubation in the ER Pulmonary/ICU wtih Dr. Benavidez Renal consultation with Dr. Estrada. Add CT head wo contrast to rule out bleed vs other completing today. On route. EEG ordered today as no prior order found. Concern for anoxic brain injury. Seizure disorder # Pneumonia #Septic Shock ID consultation with Dr. Ricketts Abx: vancomycin IV and meropenem IV. Follow up lactate and wbc, cultures # Thalassemia #COURTNEY on HD Supportive care Consider Hematology follow up as needed Continue keppra per neurology. # FTT - anorexia and weight loss Supportive care Tube feeding on Hold. DNR DVT ppx GI ppx Ken Hutton MD Oct 14, 2020 15:10
--- NOTE | 2020-10-14 15:34 | NUR ---
NURSE NOTES: Rectal tube inserted d/t pt having continuous diarrhea. Left IJ martín catheter dressing changed d/t bleeding noted from the site.
--- NOTE | 2020-10-14 15:35 | NUR ---
SOFTWARE CONFIGURATION ANALYST NOTES SPOKE WITH LUIS ANTONIO FROM [facility], MADE AWARE OF PT REQUIRING TRANSFER INTO NETWORK. ORDER FAXED TO [facility]. ASSIGNED SOFTWARE CONFIGURATION ANALYST WILL BE [place], PROVIDED LUIS ANTONIO WITH MY CONTACT INFORMATION.
--- NOTE | 2020-10-14 15:53 | NUR ---
NURSE NOTES: YANDEL Kam dialysis nurse called to confirm he will be on the unit to do dialysis @ approximately 1900.
--- NOTE | 2020-10-14 16:31 | NUR ---
[employer] FAXED TO [facility] CM: [phone] and [phone]
--- NOTE | 2020-10-14 17:40 | NUR ---
NURSE NOTES: Pt fully cleaned and linens changed. Rectal tube functioning properly, with no leakage noted. Oral care done.
--- NOTE | 2020-10-14 18:44 | NUR ---
NURSE NOTES: VIP grinder lap at bedside setting up dialysis machine.
--- NOTE | 2020-10-14 19:00 | NUR ---
NURSE NOTES: Dialysis started at this time.
--- NOTE | 2020-10-14 19:12 | NUR ---
NURSE HAND-OFF REPORT: Latest Vital Signs: Temperature 97.0 , Pulse 94 , B/P 107 /68 , Respiratory Rate 31 , O2 SAT 100 , Mechanical Ventilator, FiO2 30% . Vital Sign Comment: EKG Rhythm: Sinus Rhythm Rhythm change?: N MD Notified?: N - MD Response: Latest Carty Fall Score: 50 Fall Risk: High Risk Safety Measures: Call light Within Reach, Bed Alarm Zone 1, Side Rails Side Rails x3, Bed position Low and Locked. Fall Precautions: Yellow Socks Door Sign Patient Fall Education Report given to KIRBY Loving.
--- NOTE | 2020-10-14 19:30 | NUR ---
NURSE NOTES: RN received report from day RN. Patient vitals stable at this time. Patient shows no s/s of discomfort. RN repositioned. Patient currently being dialyzed. Will continue to monitor.
[2020-10-14] MEDS: Dyna-Hex 2% Top Sol 2oz TOPIC SCH (20:23)
--- NOTE | 2020-10-14 21:30 | NUR ---
NURSE NOTES: Patient vitals stable. patient has Levofed infusing at 8mcg/hr. patient shows no s/s of pain. Dialysis is complete. No fluid removed today due to hypotention. Patient repositioned. RN will continue to monitor.
[2020-10-15] VITALS (51 sets, daily range): BP systolic 99–125; BP diastolic 65–89
--- NOTE | 2020-10-15 | NUR ---
NURSE NOTES: received report from emily clement pt obtunded no movement all extremities tolerating tube feeding orally intubated no acute resp distress noted had hd to nigt no output tolerated well reposition and suction
--- NOTE | 2020-10-15 00:09 | NUR ---
NURSE HAND-OFF REPORT: Latest Vital Signs: Temperature 97.0 , Pulse 87 , B/P 112 /62 , Respiratory Rate 29 , O2 SAT 99 , Mechanical Ventilator, O2 Flow Rate 100.0 . Vital Sign Comment: EKG Rhythm: Sinus Rhythm Rhythm change?: N MD Notified?: N - MD Response: Latest Carty Fall Score: 50 Fall Risk: High Risk Safety Measures: Call light Within Reach, Bed Alarm Zone 1, Side Rails Side Rails x3, Bed position Low and Locked. Fall Precautions: Yellow Socks Door Sign Patient Fall Education Report given to .
--- NOTE | 2020-10-15 02:00 | NUR ---
NURSE NOTES: reposition and suction
--- NOTE | 2020-10-15 04:00 | NUR ---
NURSE NOTES: complete bed bath oral care and back care done
[2020-10-15] MEDS: Hydrocortisone 100mg Inj IV SCH ×2 (05:53→14:02)
--- NOTE | 2020-10-15 06:00 | NUR ---
NURSE NOTES: levo drip unable to titrite < sbp 80
--- NOTE | 2020-10-15 06:35 | Hematology/Onc Progress Note ---
Assessment/Plan Assessment/Plan Lab Data: reviewed IMAGING: CT Head: No evidence of acute intracranial hemorrhage, mass effect or cortical edema. MRI recommended for more sensitive evaluation as clinically indicated. Atrophy and nonspecific periventricular hypoattenuation suggestive of chronic ischemic microvascular changes. Assessment And Rec's 1. Thrombocytopenia and p/w Anemia of Chronic Disease, in chart hx of anemia --> check anemia panel --> transfuse to keep HGB >7 --> cont to monitor HGB trend, stool ob --> prior imaging reviewed, showed strophic liver --> plt 52-->56-->106-->69 --> s/p plt 3/10 2. Leukocytosis is likely related to infection --> ABx as per id emiliana/vanc --> wbc 36-->37-->34-->27 --> smear is noted 3. Anemia due to chronic disease --> hgb 9-->9.4-->10 --> no hemolysis is noted --> transfuse prn 4. Anoxic Encephalopathy --> S/p recent CODE Blue and intubation --> CT head reviewed as above Covid Ag is NEGATIVE, PCR sent and pending. PUI status 5. FTT --> Supportive care pt is DNR 6. Acute hypoxemic respiratory failure --> s/p intubation on vent 7. Dvt ppx scds Greatly appreciate consult. Subjective HEENT: Denies: no symptoms, eye pain, blurred vision, tearing, double vision, ear pain, ear discharge, nose pain, nose congestion, throat pain, throat swelling, mouth pain, mouth swelling, other Cardiovascular: Denies: no symptoms, chest pain, edema, irregular heart rate, lightheadedness, palpitations, syncope, other Respiratory: Denies: no symptoms, cough, shortness of breath, SOB with excertion, SOB at rest, sputum, wheezing, other Gastrointestinal/Abdominal: Denies: no symptoms, abdomen distended, abdominal p ain, black stools, tarry stools, blood in stool, constipated, diarrhea, difficulty swallowing, nausea, poor appetite, poor fluid intake, rectal bleeding, vomiting, other Neurologic/Psychiatric: Denies: no symptoms, anxiety, depressed, emotional problems, headache, numbness, paresthesia, pre-existing deficit, seizure, tingling, tremors, weakness, other Allergies: Coded Allergies: No Known Allergies (Unverified , 09/13/20) Subjective 10/11 icu, nv, is on vent, no bleeding, myranda rn, labs reviewed, plt 52 10/12 icu, nv, remains on vent as well as levo, labs are reviewed, wbc 37k 10/13 icu, nv, remains on vent, and levo pressors, labs noted, wbc better 10/14 icu, nv, on vent, no bleeding, pressors, meds reviewed 10/15 icu, is on vent, meds noted, hd was done yesterday, levo Objective Objective Current Medications Medications (Trade) Dose Ordered Sig/Alfredo Route PRN Reason Start Time Stop Time Status Last Admin Dose Admin Acetaminophen (Tylenol) 650 mg EVERY 6 HOURS PRN NG Temp >100.5 09/30/20 02:30 10/30/20 02:29 Chlorhexidine Gluconate (Babita-Hex 2%) 1 applic DAILY@2000 TOPIC 09/30/20 20:00 12/29/20 19:59 10/14/20 20:23 Dextrose (Dextrose 50%) 25 ml Q30M PRN IV Hypoglycemia 09/30/20 02:30 12/29/20 02:29 Dextrose (Dextrose 50%) 50 ml Q30M PRN IV Hypoglycemia 09/30/20 02:30 12/29/20 02:29 Hydrocortisone (Solu-CORTEF) 100 mg EVERY 8 HOURS IV 09/30/20 14:00 12/29/20 13:59 10/15/20 05:53 Lansoprazole (Prevacid) 30 mg Q12HR NG 10/14/20 21:00 11/13/20 20:59 10/14/20 21:13 Levetiracetam 100 ml @ 400 mls/hr Q12HR IVPB 10/12/20 21:00 01/10/21 20:59 10/14/20 21:12 Meropenem 500 mg/ Sodium Chloride 55 ml @ 110 mls/hr EVERY 12 HOURS IVPB 10/11/20 10:00 10/16/20 09:59 10/14/20 21:13 Norepinephrine Bitartrate 16 mg/ Dextrose 500 ml @ 0 mls/hr Q24H PRN IV . 10/13/20 08:43 10/16/20 08:42 10/14/20 13:05 Potassium Chloride (K-Dur) 40 meq EVERY 12 HOURS NG 10/14/20 21:00 01/11/21 20:59 10/14/20 21:13 Vancomycin HCl ([facility] pharmacy to dose) 1 ea DAILY PRN MISC Per rx protocol 10/11/20 09:00 11/10/20 08:59 Last 24 Hour Vital Signs Date Time Temp Pulse Resp B/P (MAP) Pulse Ox O2 Delivery O2 Flow Rate FiO2 10/15/20 06:30 94 18 10/15/20 06:15 93 20 105/66 (79) 100 10/15/20 06:00 104 23 104/71 (82) 100 10/15/20 06:00 105/66 10/15/20 05:45 98 22 99/68 (78) 10/15/20 05:30 100 20 101/70 (80) 10/15/20 05:23 101 16 30 10/15/20 05:15 105 16 102/67 (79) 10/15/20 05:00 102/67 10/15/20 05:00 98 14 106/71 (83) 10/15/20 04:45 92 15 107/68 (81) 10/15/20 04:30 96 14 101/66 (78) 10/15/20 04:19 97.5 94 18 100/66 (77) 100 10/15/20 04:00 30 10/15/20 04:00 94 18 100/66 (77) 100 10/15/20 04:00 106/66 10/15/20 04:00 Mechanical Ventilator 10/15/20 04:00 90 10/15/20 03:45 96 16 101/66 (78) 10/15/20 03:30 97 15 107/73 (84) 100 10/15/20 03:30 93 14 30 10/15/20 03:15 88 15 116/71 (86) 100 10/15/20 03:00 112/65 10/15/20 03:00 93 24 125/89 (101) 10/15/20 02:45 98 23 107/67 (80) 10/15/20 02:30 102 23 119/72 (88) 10/15/20 02:15 84 30 113/67 (82) 10/15/20 02:00 91 28 109/69 (82) 100 10/15/20 02:00 116/67 10/15/20 01:45 87 21 113/68 (83) 100 10/15/20 01:30 81 28 111/70 (84) 100 10/15/20 01:30 81 14 30 10/15/20 01:15 79 20 115/70 (85) 99 10/15/20 01:00 82 22 113/68 (83) 99 10/15/20 01:00 104/64 10/15/20 00:45 89 21 113/72 (86) 10/15/20 00:30 81 17 110/72 (85) 10/15/20 00:15 81 26 113/65 (81) 10/15/20 00:00 69 10/15/20 00:00 Mechanical Ventilator 10/15/20 00:00 113/65 10/15/20 00:00 30 10/15/20 00:00 97.5 81 22 110/70 (83) 10/14/20 23:45 87 29 112/62 (79) 10/14/20 23:30 96 25 119/71 (87) 10/14/20 23:26 94 16 30 10/14/20 23:15 80 31 111/68 (82) 10/14/20 23:00 111/77 10/14/20 23:00 86 17 113/67 (82) 10/14/20 22:45 83 27 112/70 (84) 10/14/20 22:30 86 31 115/72 (86) 10/14/20 22:15 89 26 114/69 (84) 99 10/14/20 22:00 96 26 110/70 (83) 98 10/14/20 22:00 113/66 10/14/20 21:45 79 25 113/65 (81) 99 10/14/20 21:30 71 12 30 10/14/20 21:30 77 17 109/63 (78) 98 10/14/20 21:15 82 18 110/71 (84) 98 10/14/20 21:00 80 25 109/69 (82) 99 10/14/20 21:00 106/71 10/14/20 20:50 90 17 95/61 (72) 100 10/14/20 20:40 91 16 98/60 (73) 99 10/14/20 20:30 91 17 96/61 (73) 99 10/14/20 20:20 90 17 96/55 (69) 99 10/14/20 20:10 94 17 101/60 (74) 99 10/14/20 20:00 93 18 99/60 (73) 99 10/14/20 20:00 77 10/14/20 20:00 96/69 10/14/20 20:00 30 10/14/20 20:00 Mechanical Ventilator 10/14/20 19:55 98 17 101/63 (76) 99 10/14/20 19:50 91 15 98/62 (74) 100 10/14/20 19:45 92 17 104/62 (76) 99 10/14/20 19:40 92 17 101/60 (74) 99 10/14/20 19:35 92 17 102/62 (75) 99 10/14/20 19:30 90 16 30 10/14/20 19:30 97 17 100/63 (75) 99 10/14/20 19:25 92 17 101/64 (76) 100 10/14/20 19:20 90 16 102/63 (76) 100 10/14/20 19:15 91 16 106/67 (80) 100 10/14/20 19:10 92 16 107/68 (81) 100 10/14/20 19:05 93 17 107/69 (82) 100 10/14/20 19:00 92 18 113/72 (86) 100 10/14/20 19:00 107/68 10/14/20 18:55 80 24 112/72 (85) 100 10/14/20 18:50 88 34 113/69 (84) 100 10/14/20 18:45 76 22 113/69 (84) 100 10/14/20 18:30 88 17 111/72 (85) 99 10/14/20 18:00 94 31 123/73 (90) 100 10/14/20 18:00 123/73 10/14/20 17:30 82 14 118/64 (82) 100 10/14/20 17:00 75 21 116/72 (87) 100 10/14/20 17:00 116/72 10/14/20 16:30 69 20 112/72 (85) 100 10/14/20 16:02 80 10/14/20 16:00 97.0 83 14 119/66 (83) 100 10/14/20 16:00 30 10/14/20 16:00 119/66 10/14/20 16:00 Mechanical Ventilator 10/14/20 15:44 85 14 30 10/14/20 15:30 95 23 114/73 (87) 99 10/14/20 15:00 100 19 112/75 (87) 98 10/14/20 15:00 112/75 10/14/20 14:30 83 14 118/75 (89) 99 10/14/20 14:00 64 24 103/61 (75) 100 10/14/20 14:00 103/61 10/14/20 13:30 66 19 97/58 (71) 100 10/14/20 13:05 105/73 10/14/20 13:00 105/73 10/14/20 13:00 83 13 105/73 (84) 99 10/14/20 12:30 84 13 112/72 (85) 99 10/14/20 12:00 95 10/14/20 12:00 114/70 10/14/20 12:00 Mechanical Ventilator 10/14/20 12:00 97.0 90 16 114/70 (85) 99 10/14/20 12:00 30 10/14/20 11:30 86 13 113/69 (84) 99 10/14/20 11:09 89 15 30 10/14/20 11:00 84 13 116/72 (87) 99 10/14/20 11:00 116/72 10/14/20 10:30 89 13 98/57 (71) 99 10/14/20 10:00 115/71 10/14/20 10:00 89 14 109/66 (80) 99 10/14/20 09:30 84 13 109/68 (82) 99 10/14/20 09:00 88 15 110/71 (84) 99 10/14/20 09:00 113/72 10/14/20 08:00 Mechanical Ventilator 10/14/20 08:00 30 10/14/20 08:00 97.1 90 15 130/74 (92) 99 10/14/20 08:00 113/71 10/14/20 08:00 86 10/14/20 07:51 91 14 30 10/14/20 07:45 87 14 114/72 (86) 99 10/14/20 07:30 89 15 130/76 (94) 99 10/14/20 07:00 84 14 119/72 (88) 99 10/14/20 07:00 116/76 10/14/20 06:24 68 18 10/14/20 06:00 90 23 99 10/14/20 05:45 86 14 123/69 (87) 99 10/14/20 05:30 84 14 124/76 (92) 98 10/14/20 05:15 87 15 120/79 (93) 100 10/14/20 05:00 86 14 112/71 (85) 10/14/20 04:45 123 32 127/102 (110) 86 10/14/20 04:30 85 43 120/77 (91) 99 10/14/20 04:15 96 25 121/75 (90) 99 10/14/20 04:03 30 10/14/20 04:03 Mechanical Ventilator 10/14/20 04:00 86 34 117/71 (86) 99 10/14/20 03:55 80 10/14/20 03:45 81 35 120/72 (88) 99 10/14/20 03:30 84 46 120/74 (89) 98 10/14/20 03:15 95 14 30 10/14/20 03:15 84 34 108/74 (85) 99 10/14/20 03:00 82 26 119/72 (88) 98 10/14/20 02:45 82 42 120/72 (88) 98 10/14/20 02:30 83 41 119/72 (88) 98 10/14/20 02:15 75 40 118/71 (87) 99 10/14/20 02:00 76 33 117/74 (88) 99 10/14/20 01:30 73 40 115/71 (86) 98 10/14/20 01:15 75 34 116/69 (85) 98 10/14/20 01:00 78 43 112/71 (85) 99 10/14/20 00:45 81 30 114/72 (86) 98 10/14/20 00:30 81 26 116/70 (85) 98 10/14/20 00:15 79 28 115/72 (86) 99 10/14/20 00:15 79 28 115/72 (86) 99 10/14/20 00:00 79 27 118/71 (87) 98 10/14/20 00:00 79 27 118/71 (87) 98 10/14/20 00:00 92 10/14/20 00:00 Mechanical Ventilator 10/13/20 23:45 79 31 115/55 (75) 98 10/13/20 23:30 84 27 118/69 (85) 98 10/13/20 23:15 82 29 120/71 (87) 100 10/13/20 23:11 81 12 30 10/13/20 23:00 89 37 120/74 (89) 98 10/13/20 22:45 67 34 112/64 (80) 98 10/13/20 22:30 79 27 112/65 (81) 98 10/13/20 22:00 75 20 112/57 (75) 98 10/13/20 21:45 79 27 116/73 (87) 97 10/13/20 21:30 78 14 113/67 (82) 98 10/13/20 21:15 77 31 115/68 (84) 98 10/13/20 21:00 82 30 113/73 (86) 97 10/13/20 20:45 82 20 111/67 (82) 97 10/13/20 20:30 85 19 111/66 (81) 97 10/13/20 20:15 86 16 124/74 (91) 97 10/13/20 20:00 Mechanical Ventilator 10/13/20 20:00 30 10/13/20 20:00 66 10/13/20 20:00 64 31 106/62 (77) 97 10/13/20 19:45 65 21 108/61 (77) 97 10/13/20 19:30 66 23 106/63 (77) 97 10/13/20 19:06 90 11 30 10/13/20 19:00 118/73 10/13/20 19:00 79 21 118/73 (88) 96 10/13/20 18:00 82 20 123/78 (93) 97 10/13/20 18:00 123/78 10/13/20 17:00 85 18 116/74 (88) 97 10/13/20 17:00 116/74 10/13/20 16:03 81 10/13/20 16:00 116/67 10/13/20 16:00 30 10/13/20 16:00 98.0 84 15 116/67 (83) 95 10/13/20 16:00 Mechanical Ventilator 10/13/20 15:05 80 13 30 10/13/20 15:00 105/66 10/13/20 15:00 118 18 105/66 (79) 96 10/13/20 14:00 92 16 118/69 (85) 97 10/13/20 14:00 118/69 10/13/20 13:00 103/60 10/13/20 13:00 86 16 103/60 (74) 97 10/13/20 12:00 79 10/13/20 12:00 Mechanical Ventilator 10/13/20 12:00 30 10/13/20 12:00 97.5 89 16 109/64 (79) 98 10/13/20 12:00 109/64 10/13/20 11:30 96 16 108/64 (79) 98 10/13/20 11:15 86 14 30 10/13/20 11:00 96/61 10/13/20 11:00 86 15 96/61 (73) 98 10/13/20 10:45 100 16 101/61 (74) 98 10/13/20 10:30 94 16 100/60 (73) 98 10/13/20 10:15 91 15 105/60 (75) 97 10/13/20 10:00 110/72 10/13/20 10:00 129 22 110/72 (85) 98 10/13/20 09:45 97 16 105/64 (78) 10/13/20 09:30 104 17 98/69 (79) 10/13/20 09:16 137/80 10/13/20 09:15 105 18 137/80 (99) 10/13/20 09:00 72 24 110/64 (79) 10/13/20 08:00 30 10/13/20 08:00 98.0 81 16 118/68 (85) 96 10/13/20 08:00 Mechanical Ventilator 10/13/20 07:32 84 10/13/20 07:15 81 15 30 10/13/20 07:00 118/80 10/13/20 07:00 94 18 127/84 (98) Intake and Output 10/14/20 10/15/20 19:00 07:00 Intake Total 933.75 ml 915 ml Output Total 10 ml 20 ml Balance 923.75 ml 895 ml Free Water 100 ml IV Total 333.75 ml 375 ml Tube Feeding 480 ml 440 ml Other 120 ml Output Urine Total 10 ml 20 ml # Voids 5 # Bowel Movements 50 Labs Test 10/13/20 04:00 10/13/20 09:30 10/13/20 11:55 10/14/20 04:00 White Blood Count 33.9 K/UL (4.8-10.8) 26.9 K/UL (4.8-10.8) Red Blood Count 2.98 M/UL (4.70-6.10) 3.15 M/UL (4.70-6.10) Hemoglobin 9.4 G/DL (14.2-18.0) 10.1 G/DL (14.2-18.0) Hematocrit 30.0 % (42.0-52.0) 31.9 % (42.0-52.0) Mean Corpuscular Volume 101 FL (80-99) 102 FL (80-99) Mean Corpuscular Hemoglobin 31.6 PG (27.0-31.0) 32.2 PG (27.0-31.0) Mean Corpuscular Hemoglobin Concent 31.3 G/DL (32.0-36.0) 31.7 G/DL (32.0-36.0) Red Cell Distribution Width 21.0 % (11.6-14.8) 22.2 % (11.6-14.8) Platelet Count 103 K/UL (150-450) 69 K/UL (150-450) Mean Platelet Volume 9.9 FL (6.5-10.1) 10.3 FL (6.5-10.1) Neutrophils (%) (Auto) % (45.0-75.0) % (45.0-75.0) Lymphocytes (%) (Auto) % (20.0-45.0) % (20.0-45.0) Monocytes (%) (Auto) % (1.0-10.0) % (1.0-10.0) Eosinophils (%) (Auto) % (0.0-3.0) % (0.0-3.0) Basophils (%) (Auto) % (0.0-2.0) % (0.0-2.0) Differential Total Cells Counted 100 100 Neutrophils % (Manual) 92 % (45-75) 90 % (45-75) Lymphocytes % (Manual) 2 % (20-45) 2 % (20-45) Monocytes % (Manual) 6 % (1-10) 6 % (1-10) Eosinophils % (Manual) 0 % (0-3) 0 % (0-3) Basophils % (Manual) 0 % (0-2) 0 % (0-2) Band Neutrophils 0 % (0-8) 2 % (0-8) Nucleated Red Blood Cells 2 /100 WBC Platelet Estimate Decreased Decreased Platelet Morphology Normal Normal Hypochromasia 1+ 1+ Anisocytosis 3+ 2+ Macrocytosis Occasional 1+ Schistocytes 1+ 1+ Sodium Level 142 MMOL/L (136-145) 140 MMOL/L (136-145) Potassium Level 3.0 MMOL/L (3.5-5.1) 3.1 MMOL/L (3.5-5.1) Chloride Level 105 MMOL/L (98-107) 104 MMOL/L (98-107) Carbon Dioxide Level 22 MMOL/L (21-32) 22 MMOL/L (21-32) Anion Gap 15 mmol/L (5-15) 14 mmol/L (5-15) Blood Urea Nitrogen 37 mg/dL (7-18) 46 mg/dL (7-18) Creatinine 4.5 MG/DL (0.55-1.30) 5.3 MG/DL (0.55-1.30) Estimat Glomerular Filtration Rate 15.5 mL/min (>60) 12.8 mL/min (>60) Glucose Level 261 MG/DL (74-106) 257 MG/DL (74-106) Calcium Level 9.2 MG/DL (8.5-10.1) 9.0 MG/DL (8.5-10.1) Phosphorus Level 3.5 MG/DL (2.5-4.9) 3.9 MG/DL (2.5-4.9) Magnesium Level 1.9 MG/DL (1.8-2.4) 1.9 MG/DL (1.8-2.4) Total Bilirubin 0.7 MG/DL (0.2-1.0) 0.8 MG/DL (0.2-1.0) Aspartate Amino Transf (AST/SGOT) 54 U/L (15-37) 43 U/L (15-37) Alanine Aminotransferase (ALT/SGPT) 78 U/L (12-78) 78 U/L (12-78) Alkaline Phosphatase 237 U/L (46-116) 186 U/L (46-116) C-Reactive Protein, Quantitative < 0.4 mg/dL (0.00-0.90) < 0.4 mg/dL (0.00-0.90) Pro-B-Type Natriuretic Peptide 88387 pg/mL (0-125) 56405 pg/mL (0-125) Total Protein 5.5 G/DL (6.4-8.2) 5.4 G/DL (6.4-8.2) Albumin 2.4 G/DL (3.4-5.0) 2.3 G/DL (3.4-5.0) Globulin 3.1 g/dL 3.1 g/dL Albumin/Globulin Ratio 0.8 (1.0-2.7) 0.7 (1.0-2.7) Random Vancomycin Level 20.8 ug/mL Prothrombin Time 15.2 SEC (9.30-11.50) Prothromb Time International Ratio 1.4 (0.9-1.1) Activated Partial Thromboplast Time 32 SEC (23-33) Body Fluid Source Peritoneal Body Fluid Volume 18 mL Body Fluid Appearance Hazy (Clear) Body Fluid RBC 8 /CUMM Body Fluid Total Nucleated Cells 13 /CUMM Body Fluid Polynuclear WBCs (%) 73 % Body Fluid Mononuclear WBCs (%) 24 % Body Fluid Mesothelial Cells (%) 3 % Body Fluid Comment Height (Feet): 6 Height (Inches): 8.00 Weight (Pounds): 165 Objective Physical Exam: pt is camotose. Sedated HEENT: NC/AT. EOMI. Cardiovascular: Irregularly irregular rhythm. Resp: intubated on vent ++ Abdomen: Abdomen is soft, nondistended. Nd Skin: Intact. MSK: obtunded Neuro: limited exam Bert Ponce MD Oct 15, 2020 06:35
--- NOTE | 2020-10-15 07:22 | NUR ---
NURSE HAND-OFF REPORT: Latest Vital Signs: Temperature 97.5 , Pulse 91 , B/P 109 /70 , Respiratory Rate 22 , O2 SAT 100 , Mechanical Ventilator, O2 Flow Rate 100.0 . Vital Sign Comment: EKG Rhythm: Sinus Rhythm Rhythm change?: N MD Notified?: N - MD Response: Latest Carty Fall Score: 50 Fall Risk: High Risk Safety Measures: Call light Within Reach, Bed Alarm Zone 1, Side Rails Side Rails x3, Bed position Low and Locked. Fall Precautions: Yellow Socks Door Sign Patient Fall Education Report given to shelly clement using sbar.
--- NOTE | 2020-10-15 07:25 | NUR ---
NURSE NOTES: Report received from Nahomi ORR.Pt asleep ,lethargic noted no resp distress,Orally intubated ETT 7.5 .lip line 24cm,no signs of pain or discomforft,SR on the monitor,NGT feeding not in placed,unable to hear any gurglling sound when air was introduced,with scanty amount of urine out in the [place] cath,Rectal tube in placed with yellow liquid stools,skin warm and dry with IV sites x2 RT IJ TLC and Lt IJ Juaquin cath for Hemodialysis access.Pt with Levophed drip 8 mcg/min ,V/S stable,SR up x2 HOB elevated bed lock in lowest position will continue with plans of care.
--- NOTE | 2020-10-15 08:01 | Infectious Diseases Prog Note ---
Assessment/Plan 75 yo male with PMHx of failure to thrive, HTN, thalassemia, pancytopenia, HLD, Depression who was sent to the ED from his halfway for AMS. Septic Shock PNA Acute hypoxic resp failure sp VDRF -10/04 sp Cx - K. Pnaumo -10/01 sp cx S. aureus (MSSA), K. pna (r amp; otherwise S) -09/30 COVID PCr neg -09/30 CXR: Bibasilar atelectasis versus infiltrates CXR 09/29/20 - Left basilar atelectasis. No acute process otherwise. Evidence of old granulomatous disease rapid covid ag neg , PCR : neg S. epi bacteremia- contaminant vs real -10/03 Bcx NGTD -09/29 BCx 09/07 sets S. epi Leukocytosis; increased ( on steroids) No fever -09/30 ucx neg AMS -CT head: New NG tube and mid to distal esophagus. Recommend advancement. Bibasilar atelectasis versus infiltrates Lactic acidosis Failure to thrive HTN Thalassemia Pancytopenia HLD Depression Adenomatous colonic polyps PLAN Start Meropenem #5/7 10/15/20 SP Vancomycin #5 f/u cultures f/u C. diff Repeat CXR - 10/10/20 SP Ceftriaxone # 5 for K. pneumo PNA - 10/06/20 SP Zosyn #7/7 - 10/03/20 SP Vancomycin #3 - Monitor CBC and Temps - BCx (periheral and line) - 2d echo Thank you for this consult. [facility] will continue to follow Mr. Vargas while he in hospitalized. Subjective Allergies: Coded Allergies: No Known Allergies (Unverified , 09/13/20) Afebrile WBCs decreasing as of yesterday Still on Levophed Objective Last 24 Hour Vital Signs Date Time Temp Pulse Resp B/P (MAP) Pulse Ox O2 Delivery O2 Flow Rate FiO2 10/15/20 07:15 91 22 109/70 (83) 100 10/15/20 07:00 87 15 101/70 (80) 100 10/15/20 07:00 101/70 10/15/20 06:45 96 20 106/68 (81) 100 10/15/20 06:30 95 19 107/66 (80) 10/15/20 06:30 94 18 10/15/20 06:15 93 20 105/66 (79) 100 10/15/20 06:00 104 23 104/71 (82) 100 10/15/20 06:00 105/66 10/15/20 05:45 98 22 99/68 (78) 10/15/20 05:30 100 20 101/70 (80) 10/15/20 05:23 101 16 30 10/15/20 05:15 105 16 102/67 (79) 10/15/20 05:00 102/67 10/15/20 05:00 98 14 106/71 (83) 10/15/20 04:45 92 15 107/68 (81) 10/15/20 04:30 96 14 101/66 (78) 10/15/20 04:19 97.5 94 18 100/66 (77) 100 10/15/20 04:00 30 10/15/20 04:00 94 18 100/66 (77) 100 10/15/20 04:00 106/66 10/15/20 04:00 Mechanical Ventilator 10/15/20 04:00 90 10/15/20 03:45 96 16 101/66 (78) 10/15/20 03:30 97 15 107/73 (84) 100 10/15/20 03:30 93 14 30 10/15/20 03:15 88 15 116/71 (86) 100 10/15/20 03:00 112/65 10/15/20 03:00 93 24 125/89 (101) 10/15/20 02:45 98 23 107/67 (80) 10/15/20 02:30 102 23 119/72 (88) 10/15/20 02:15 84 30 113/67 (82) 10/15/20 02:00 91 28 109/69 (82) 100 10/15/20 02:00 116/67 10/15/20 01:45 87 21 113/68 (83) 100 10/15/20 01:30 81 28 111/70 (84) 100 10/15/20 01:30 81 14 30 10/15/20 01:15 79 20 115/70 (85) 99 10/15/20 01:00 82 22 113/68 (83) 99 10/15/20 01:00 104/64 10/15/20 00:45 89 21 113/72 (86) 10/15/20 00:30 81 17 110/72 (85) 10/15/20 00:15 81 26 113/65 (81) 10/15/20 00:00 69 10/15/20 00:00 Mechanical Ventilator 10/15/20 00:00 113/65 10/15/20 00:00 30 10/15/20 00:00 97.5 81 22 110/70 (83) 10/14/20 23:45 87 29 112/62 (79) 10/14/20 23:30 96 25 119/71 (87) 10/14/20 23:26 94 16 30 10/14/20 23:15 80 31 111/68 (82) 10/14/20 23:00 111/77 10/14/20 23:00 86 17 113/67 (82) 10/14/20 22:45 83 27 112/70 (84) 10/14/20 22:30 86 31 115/72 (86) 10/14/20 22:15 89 26 114/69 (84) 99 10/14/20 22:00 96 26 110/70 (83) 98 10/14/20 22:00 113/66 10/14/20 21:45 79 25 113/65 (81) 99 10/14/20 21:30 71 12 30 10/14/20 21:30 77 17 109/63 (78) 98 10/14/20 21:15 82 18 110/71 (84) 98 10/14/20 21:00 80 25 109/69 (82) 99 10/14/20 21:00 106/71 10/14/20 20:50 90 17 95/61 (72) 100 10/14/20 20:40 91 16 98/60 (73) 99 10/14/20 20:30 91 17 96/61 (73) 99 10/14/20 20:20 90 17 96/55 (69) 99 10/14/20 20:10 94 17 101/60 (74) 99 10/14/20 20:00 93 18 99/60 (73) 99 10/14/20 20:00 77 10/14/20 20:00 96/69 10/14/20 20:00 30 10/14/20 20:00 Mechanical Ventilator 10/14/20 19:55 98 17 101/63 (76) 99 10/14/20 19:50 91 15 98/62 (74) 100 10/14/20 19:45 92 17 104/62 (76) 99 10/14/20 19:40 92 17 101/60 (74) 99 10/14/20 19:35 92 17 102/62 (75) 99 10/14/20 19:30 90 16 30 10/14/20 19:30 97 17 100/63 (75) 99 10/14/20 19:25 92 17 101/64 (76) 100 10/14/20 19:20 90 16 102/63 (76) 100 10/14/20 19:15 91 16 106/67 (80) 100 10/14/20 19:10 92 16 107/68 (81) 100 10/14/20 19:05 93 17 107/69 (82) 100 10/14/20 19:00 92 18 113/72 (86) 100 10/14/20 19:00 107/68 10/14/20 18:55 80 24 112/72 (85) 100 10/14/20 18:50 88 34 113/69 (84) 100 10/14/20 18:45 76 22 113/69 (84) 100 10/14/20 18:30 88 17 111/72 (85) 99 10/14/20 18:00 94 31 123/73 (90) 100 10/14/20 18:00 123/73 10/14/20 17:30 82 14 118/64 (82) 100 10/14/20 17:00 75 21 116/72 (87) 100 10/14/20 17:00 116/72 10/14/20 16:30 69 20 112/72 (85) 100 10/14/20 16:02 80 10/14/20 16:00 97.0 83 14 119/66 (83) 100 10/14/20 16:00 30 10/14/20 16:00 119/66 10/14/20 16:00 Mechanical Ventilator 10/14/20 15:44 85 14 30 10/14/20 15:30 95 23 114/73 (87) 99 10/14/20 15:00 100 19 112/75 (87) 98 10/14/20 15:00 112/75 10/14/20 14:30 83 14 118/75 (89) 99 10/14/20 14:00 64 24 103/61 (75) 100 10/14/20 14:00 103/61 10/14/20 13:30 66 19 97/58 (71) 100 10/14/20 13:05 105/73 10/14/20 13:00 105/73 10/14/20 13:00 83 13 105/73 (84) 99 10/14/20 12:30 84 13 112/72 (85) 99 10/14/20 12:00 95 10/14/20 12:00 114/70 10/14/20 12:00 Mechanical Ventilator 10/14/20 12:00 97.0 90 16 114/70 (85) 99 10/14/20 12:00 30 10/14/20 11:30 86 13 113/69 (84) 99 10/14/20 11:09 89 15 30 10/14/20 11:00 84 13 116/72 (87) 99 10/14/20 11:00 116/72 10/14/20 10:30 89 13 98/57 (71) 99 10/14/20 10:00 115/71 10/14/20 10:00 89 14 109/66 (80) 99 10/14/20 09:30 84 13 109/68 (82) 99 10/14/20 09:00 88 15 110/71 (84) 99 10/14/20 09:00 113/72 Height (Feet): 6 Height (Inches): 8.00 Weight (Pounds): 165 Gen: On Vent, Not following HEENT: NCAT, Intubated Pulm: RRR No accessory muscle use Abd: Soft, ND, + BS SKIN: Exposed skin normal in color no rash noted Microbiology Date/Time Source Procedure Growth Status 10/13/20 11:55 Abdominal Fluid Gram Stain - Final Resulted 10/13/20 11:55 Abdominal Fluid Body Fluid Culture - Preliminary NO GROWTH AFTER 24 HOURS Resulted Current Medications Medications (Trade) Dose Ordered Sig/Alfredo Route PRN Reason Start Time Stop Time Status Last Admin Dose Admin Acetaminophen (Tylenol) 650 mg EVERY 6 HOURS PRN NG Temp >100.5 09/30/20 02:30 10/30/20 02:29 Chlorhexidine Gluconate (Babita-Hex 2%) 1 applic DAILY@2000 TOPIC 09/30/20 20:00 12/29/20 19:59 10/14/20 20:23 Dextrose (Dextrose 50%) 25 ml Q30M PRN IV Hypoglycemia 09/30/20 02:30 12/29/20 02:29 Dextrose (Dextrose 50%) 50 ml Q30M PRN IV Hypoglycemia 09/30/20 02:30 12/29/20 02:29 Hydrocortisone (Solu-CORTEF) 100 mg EVERY 8 HOURS IV 09/30/20 14:00 12/29/20 13:59 10/15/20 05:53 Lansoprazole (Prevacid) 30 mg Q12HR NG 10/14/20 21:00 11/13/20 20:59 10/14/20 21:13 Levetiracetam 100 ml @ 400 mls/hr Q12HR IVPB 10/12/20 21:00 01/10/21 20:59 10/14/20 21:12 Meropenem 500 mg/ Sodium Chloride 55 ml @ 110 mls/hr EVERY 12 HOURS IVPB 10/11/20 10:00 10/16/20 09:59 10/14/20 21:13 Norepinephrine Bitartrate 16 mg/ Dextrose 500 ml @ 0 mls/hr Q24H PRN IV . 10/13/20 08:43 10/16/20 08:42 10/14/20 13:05 Potassium Chloride (K-Dur) 40 meq EVERY 12 HOURS NG 10/14/20 21:00 01/11/21 20:59 10/14/20 21:13 Vancomycin HCl ([facility] pharmacy to dose) 1 ea DAILY PRN MISC Per rx protocol 10/11/20 09:00 11/10/20 08:59 Yoel Ricketts MD Oct 15, 2020 08:01
[2020-10-15] MEDS: Meropenem 500 MG in NS 55 ML IVPB SCH (09:18)
[2020-10-15] MEDS: levETIRAcetam 1,000mg/NS100ml 100 ML IVPB SCH ×2 (09:18→20:15)
--- NOTE | 2020-10-15 10:26 | Surgery Progress Note ---
Surgery Progress Note Subjective Additional Comments no acute events labs noted on support may need trach Objective Last 24 Hour Vital Signs Date Time Temp Pulse Resp B/P (MAP) Pulse Ox O2 Delivery O2 Flow Rate FiO2 10/15/20 08:00 30 10/15/20 08:00 98.5 92 23 107/73 (84) 100 10/15/20 08:00 76 10/15/20 08:00 Mechanical Ventilator 10/15/20 07:15 91 22 109/70 (83) 100 10/15/20 07:11 84 14 30 10/15/20 07:00 87 15 101/70 (80) 100 10/15/20 07:00 101/70 10/15/20 06:45 96 20 106/68 (81) 100 10/15/20 06:30 95 19 107/66 (80) 10/15/20 06:30 94 18 10/15/20 06:15 93 20 105/66 (79) 100 10/15/20 06:00 104 23 104/71 (82) 100 10/15/20 06:00 105/66 10/15/20 05:45 98 22 99/68 (78) 10/15/20 05:30 100 20 101/70 (80) 10/15/20 05:23 101 16 30 10/15/20 05:15 105 16 102/67 (79) 10/15/20 05:00 102/67 10/15/20 05:00 98 14 106/71 (83) 10/15/20 04:45 92 15 107/68 (81) 10/15/20 04:30 96 14 101/66 (78) 10/15/20 04:19 97.5 94 18 100/66 (77) 100 10/15/20 04:00 30 10/15/20 04:00 94 18 100/66 (77) 100 10/15/20 04:00 106/66 10/15/20 04:00 Mechanical Ventilator 10/15/20 04:00 90 10/15/20 03:45 96 16 101/66 (78) 10/15/20 03:30 97 15 107/73 (84) 100 10/15/20 03:30 93 14 30 10/15/20 03:15 88 15 116/71 (86) 100 10/15/20 03:00 112/65 10/15/20 03:00 93 24 125/89 (101) 10/15/20 02:45 98 23 107/67 (80) 10/15/20 02:30 102 23 119/72 (88) 10/15/20 02:15 84 30 113/67 (82) 10/15/20 02:00 91 28 109/69 (82) 100 10/15/20 02:00 116/67 10/15/20 01:45 87 21 113/68 (83) 100 10/15/20 01:30 81 28 111/70 (84) 100 10/15/20 01:30 81 14 30 10/15/20 01:15 79 20 115/70 (85) 99 10/15/20 01:00 82 22 113/68 (83) 99 10/15/20 01:00 104/64 10/15/20 00:45 89 21 113/72 (86) 10/15/20 00:30 81 17 110/72 (85) 10/15/20 00:15 81 26 113/65 (81) 10/15/20 00:00 69 10/15/20 00:00 Mechanical Ventilator 10/15/20 00:00 113/65 10/15/20 00:00 30 10/15/20 00:00 97.5 81 22 110/70 (83) 10/14/20 23:45 87 29 112/62 (79) 10/14/20 23:30 96 25 119/71 (87) 10/14/20 23:26 94 16 30 10/14/20 23:15 80 31 111/68 (82) 10/14/20 23:00 111/77 10/14/20 23:00 86 17 113/67 (82) 10/14/20 22:45 83 27 112/70 (84) 10/14/20 22:30 86 31 115/72 (86) 10/14/20 22:15 89 26 114/69 (84) 99 10/14/20 22:00 96 26 110/70 (83) 98 10/14/20 22:00 113/66 10/14/20 21:45 79 25 113/65 (81) 99 10/14/20 21:30 71 12 30 10/14/20 21:30 77 17 109/63 (78) 98 10/14/20 21:15 82 18 110/71 (84) 98 10/14/20 21:00 80 25 109/69 (82) 99 10/14/20 21:00 106/71 10/14/20 20:50 90 17 95/61 (72) 100 10/14/20 20:40 91 16 98/60 (73) 99 10/14/20 20:30 91 17 96/61 (73) 99 10/14/20 20:20 90 17 96/55 (69) 99 10/14/20 20:10 94 17 101/60 (74) 99 10/14/20 20:00 93 18 99/60 (73) 99 10/14/20 20:00 77 10/14/20 20:00 96/69 10/14/20 20:00 30 10/14/20 20:00 Mechanical Ventilator 10/14/20 19:55 98 17 101/63 (76) 99 10/14/20 19:50 91 15 98/62 (74) 100 10/14/20 19:45 92 17 104/62 (76) 99 10/14/20 19:40 92 17 101/60 (74) 99 10/14/20 19:35 92 17 102/62 (75) 99 10/14/20 19:30 90 16 30 10/14/20 19:30 97 17 100/63 (75) 99 10/14/20 19:25 92 17 101/64 (76) 100 10/14/20 19:20 90 16 102/63 (76) 100 10/14/20 19:15 91 16 106/67 (80) 100 10/14/20 19:10 92 16 107/68 (81) 100 10/14/20 19:05 93 17 107/69 (82) 100 10/14/20 19:00 92 18 113/72 (86) 100 10/14/20 19:00 107/68 10/14/20 18:55 80 24 112/72 (85) 100 10/14/20 18:50 88 34 113/69 (84) 100 10/14/20 18:45 76 22 113/69 (84) 100 10/14/20 18:30 88 17 111/72 (85) 99 10/14/20 18:00 94 31 123/73 (90) 100 10/14/20 18:00 123/73 10/14/20 17:30 82 14 118/64 (82) 100 10/14/20 17:00 75 21 116/72 (87) 100 10/14/20 17:00 116/72 10/14/20 16:30 69 20 112/72 (85) 100 10/14/20 16:02 80 10/14/20 16:00 97.0 83 14 119/66 (83) 100 10/14/20 16:00 30 10/14/20 16:00 119/66 10/14/20 16:00 Mechanical Ventilator 10/14/20 15:44 85 14 30 10/14/20 15:30 95 23 114/73 (87) 99 10/14/20 15:00 100 19 112/75 (87) 98 10/14/20 15:00 112/75 10/14/20 14:30 83 14 118/75 (89) 99 10/14/20 14:00 64 24 103/61 (75) 100 10/14/20 14:00 103/61 10/14/20 13:30 66 19 97/58 (71) 100 10/14/20 13:05 105/73 10/14/20 13:00 105/73 10/14/20 13:00 83 13 105/73 (84) 99 10/14/20 12:30 84 13 112/72 (85) 99 10/14/20 12:00 95 10/14/20 12:00 114/70 10/14/20 12:00 Mechanical Ventilator 10/14/20 12:00 97.0 90 16 114/70 (85) 99 10/14/20 12:00 30 10/14/20 11:30 86 13 113/69 (84) 99 10/14/20 11:09 89 15 30 10/14/20 11:00 84 13 116/72 (87) 99 10/14/20 11:00 116/72 10/14/20 10:30 89 13 98/57 (71) 99 I&O Intake and Output 10/14/20 10/15/20 19:00 07:00 Intake Total 933.75 ml 970 ml Output Total 10 ml 120 ml Balance 923.75 ml 850 ml Free Water 100 ml IV Total 333.75 ml 390 ml Tube Feeding 480 ml 480 ml Other 120 ml Output Urine Total 10 ml 20 ml Stool Total 100 ml # Voids 5 # Bowel Movements 50 Dressing: other Wound: other Cardiovascular: RSR Respiratory: decreased breath sounds Abdomen: soft, non-tender, present bowel sounds, non-distended Extremities: no tenderness, no cyanosis Plan Problems: (1) Cardiopulmonary arrest (2) Septic shock Assessment & Plan: 75 male leukocytosis lactic acidosis septic shock intubated intensive care unit. Unable to give abdominal exam, exam otherwise benign abdominal unlikely etiology imaging reviewed labs reviewed. Continue ventilator support respiratory in nature seemingly. NG tube IV fluids IV antibiotics will follow with recommendations thank you letter participation's care bleeding from HD cath site ddavp ordered will monitor cont weaning no n/v labs noted cont weaning trend labs cxr prn DAILY ESTIMATED NEEDS: Needs based on Critical care 74.2kg 22-28 kcals/kg 7565-7248 total kcals 1.2-2 g protein/kg 89-148 g total protein 25-30 mL/kg [id number] total fluid mLs NUTRITION DIAGNOSIS: Swallowing difficulty r/t respiratory arrest as evidenced by pt intubated, on pressor support, ICU status. ENTERAL NUTRITION RECOMMENDATIONS: As able NEPRO @40ml/hr x24 hrs to provide 960ml, 1728 kcal, 78g pro, 698ml free H2O -When stable for feeds rec renal formula at this time d/t increasing K and phos. -obtain GI access, initiate Nepro @20ml/hr for 6 hrs, advance as tolerated 10ml/hr 2q4-6 hrs to goal -When tolerating TF at goal, add prosource 1 pack BID to better meet est pro needs. -Flush per HOB over 30 degrees. ----> If hemodynamically unstable, rec trophic feeds of Nepro @10ml/hr to maintain gut integrity. ADDITIONAL RECOMMENDATIONS: 1) F/up w/ H&P 2) Maintain D5 IV hydration while NPO 3) Maintain calibrated bed scale wts 4) Non oral feeds when stable (3) Lactic acidosis (4) Failure to thrive (5) Pancytopenia (6) Respiratory failure (7) Hypoxia (8) Pneumonia (9) Respiratory arrest (10) Hypernatremia (11) Renal failure Oni Walker Oct 15, 2020 10:26
--- NOTE | 2020-10-15 10:30 | NUR ---
NURSE NOTES: Swab test Covid PCR done required for pt's transfer to [facility]. Elva ORR,nurse case management for [facility] is arranging for pt's transfer.
--- NOTE | 2020-10-15 11:28 | Pulmonology Progress Note ---
Subjective ROS Limited/Unobtainable: No Interval Events: s/p paracentesis, 5.2L out Constitutional: Reports: no symptoms HEENT: Repors: no symptoms Respiratory: Reports: no symptoms Cardiovascular: Reports: no symptoms Gastrointestinal/Abdominal: Reports: no symptoms Genitourinary: Reports: no symptoms Allergies: Coded Allergies: No Known Allergies (Unverified , 09/13/20) All Systems: reviewed and negative except above Objective Last 24 Hour Vital Signs Date Time Temp Pulse Resp B/P (MAP) Pulse Ox O2 Delivery O2 Flow Rate FiO2 10/15/20 11:00 79 16 104/65 (78) 100 10/15/20 10:00 73 27 105/67 (80) 100 10/15/20 09:00 78 30 107/65 (79) 100 10/15/20 08:00 30 10/15/20 08:00 98.5 92 23 107/73 (84) 100 10/15/20 08:00 76 10/15/20 08:00 Mechanical Ventilator 10/15/20 07:15 91 22 109/70 (83) 100 10/15/20 07:11 84 14 30 10/15/20 07:00 87 15 101/70 (80) 100 10/15/20 07:00 101/70 10/15/20 06:45 96 20 106/68 (81) 100 10/15/20 06:30 95 19 107/66 (80) 10/15/20 06:30 94 18 10/15/20 06:15 93 20 105/66 (79) 100 10/15/20 06:00 104 23 104/71 (82) 100 10/15/20 06:00 105/66 10/15/20 05:45 98 22 99/68 (78) 10/15/20 05:30 100 20 101/70 (80) 10/15/20 05:23 101 16 30 10/15/20 05:15 105 16 102/67 (79) 10/15/20 05:00 102/67 10/15/20 05:00 98 14 106/71 (83) 10/15/20 04:45 92 15 107/68 (81) 10/15/20 04:30 96 14 101/66 (78) 10/15/20 04:19 97.5 94 18 100/66 (77) 100 10/15/20 04:00 30 10/15/20 04:00 94 18 100/66 (77) 100 10/15/20 04:00 106/66 10/15/20 04:00 Mechanical Ventilator 10/15/20 04:00 90 10/15/20 03:45 96 16 101/66 (78) 10/15/20 03:30 97 15 107/73 (84) 100 10/15/20 03:30 93 14 30 10/15/20 03:15 88 15 116/71 (86) 100 10/15/20 03:00 112/65 10/15/20 03:00 93 24 125/89 (101) 10/15/20 02:45 98 23 107/67 (80) 10/15/20 02:30 102 23 119/72 (88) 10/15/20 02:15 84 30 113/67 (82) 10/15/20 02:00 91 28 109/69 (82) 100 10/15/20 02:00 116/67 10/15/20 01:45 87 21 113/68 (83) 100 10/15/20 01:30 81 28 111/70 (84) 100 10/15/20 01:30 81 14 30 10/15/20 01:15 79 20 115/70 (85) 99 10/15/20 01:00 82 22 113/68 (83) 99 10/15/20 01:00 104/64 10/15/20 00:45 89 21 113/72 (86) 10/15/20 00:30 81 17 110/72 (85) 10/15/20 00:15 81 26 113/65 (81) 10/15/20 00:00 69 10/15/20 00:00 Mechanical Ventilator 10/15/20 00:00 113/65 10/15/20 00:00 30 10/15/20 00:00 97.5 81 22 110/70 (83) 10/14/20 23:45 87 29 112/62 (79) 10/14/20 23:30 96 25 119/71 (87) 10/14/20 23:26 94 16 30 10/14/20 23:15 80 31 111/68 (82) 10/14/20 23:00 111/77 10/14/20 23:00 86 17 113/67 (82) 10/14/20 22:45 83 27 112/70 (84) 10/14/20 22:30 86 31 115/72 (86) 10/14/20 22:15 89 26 114/69 (84) 99 10/14/20 22:00 96 26 110/70 (83) 98 10/14/20 22:00 113/66 10/14/20 21:45 79 25 113/65 (81) 99 10/14/20 21:30 71 12 30 10/14/20 21:30 77 17 109/63 (78) 98 10/14/20 21:15 82 18 110/71 (84) 98 10/14/20 21:00 80 25 109/69 (82) 99 10/14/20 21:00 106/71 10/14/20 20:50 90 17 95/61 (72) 100 10/14/20 20:40 91 16 98/60 (73) 99 10/14/20 20:30 91 17 96/61 (73) 99 10/14/20 20:20 90 17 96/55 (69) 99 10/14/20 20:10 94 17 101/60 (74) 99 10/14/20 20:00 93 18 99/60 (73) 99 10/14/20 20:00 77 10/14/20 20:00 96/69 10/14/20 20:00 30 10/14/20 20:00 Mechanical Ventilator 10/14/20 19:55 98 17 101/63 (76) 99 10/14/20 19:50 91 15 98/62 (74) 100 10/14/20 19:45 92 17 104/62 (76) 99 10/14/20 19:40 92 17 101/60 (74) 99 10/14/20 19:35 92 17 102/62 (75) 99 10/14/20 19:30 90 16 30 10/14/20 19:30 97 17 100/63 (75) 99 10/14/20 19:25 92 17 101/64 (76) 100 10/14/20 19:20 90 16 102/63 (76) 100 10/14/20 19:15 91 16 106/67 (80) 100 10/14/20 19:10 92 16 107/68 (81) 100 10/14/20 19:05 93 17 107/69 (82) 100 10/14/20 19:00 92 18 113/72 (86) 100 10/14/20 19:00 107/68 10/14/20 18:55 80 24 112/72 (85) 100 10/14/20 18:50 88 34 113/69 (84) 100 10/14/20 18:45 76 22 113/69 (84) 100 10/14/20 18:30 88 17 111/72 (85) 99 10/14/20 18:00 94 31 123/73 (90) 100 10/14/20 18:00 123/73 10/14/20 17:30 82 14 118/64 (82) 100 10/14/20 17:00 75 21 116/72 (87) 100 10/14/20 17:00 116/72 10/14/20 16:30 69 20 112/72 (85) 100 10/14/20 16:02 80 10/14/20 16:00 97.0 83 14 119/66 (83) 100 10/14/20 16:00 30 10/14/20 16:00 119/66 10/14/20 16:00 Mechanical Ventilator 10/14/20 15:44 85 14 30 10/14/20 15:30 95 23 114/73 (87) 99 10/14/20 15:00 100 19 112/75 (87) 98 10/14/20 15:00 112/75 10/14/20 14:30 83 14 118/75 (89) 99 10/14/20 14:00 64 24 103/61 (75) 100 10/14/20 14:00 103/61 10/14/20 13:30 66 19 97/58 (71) 100 10/14/20 13:05 105/73 10/14/20 13:00 105/73 10/14/20 13:00 83 13 105/73 (84) 99 10/14/20 12:30 84 13 112/72 (85) 99 10/14/20 12:00 95 10/14/20 12:00 114/70 10/14/20 12:00 Mechanical Ventilator 10/14/20 12:00 97.0 90 16 114/70 (85) 99 10/14/20 12:00 30 10/14/20 11:30 86 13 113/69 (84) 99 Intake and Output 10/14/20 10/15/20 19:00 07:00 Intake Total 933.75 ml 970 ml Output Total 10 ml 120 ml Balance 923.75 ml 850 ml Free Water 100 ml IV Total 333.75 ml 390 ml Tube Feeding 480 ml 480 ml Other 120 ml Output Urine Total 10 ml 20 ml Stool Total 100 ml # Voids 5 # Bowel Movements 50 General Appearance: no acute distress HEENT: normocephalic Respiratory: chest wall non-tender Cardiovascular: normal peripheral pulses Abdomen: normal bowel sounds Neurologic: unresponsiveness Microbiology Date/Time Source Procedure Growth Status 10/13/20 11:55 Abdominal Fluid Gram Stain - Final Resulted 10/13/20 11:55 Abdominal Fluid Body Fluid Culture - Preliminary NO GROWTH AFTER 24 HOURS Resulted Current Medications Medications (Trade) Dose Ordered Sig/Alfredo Route PRN Reason Start Time Stop Time Status Last Admin Dose Admin Acetaminophen (Tylenol) 650 mg EVERY 6 HOURS PRN NG Temp >100.5 09/30/20 02:30 10/30/20 02:29 Chlorhexidine Gluconate (Babita-Hex 2%) 1 applic DAILY@2000 TOPIC 09/30/20 20:00 12/29/20 19:59 10/14/20 20:23 Dextrose (Dextrose 50%) 25 ml Q30M PRN IV Hypoglycemia 09/30/20 02:30 12/29/20 02:29 Dextrose (Dextrose 50%) 50 ml Q30M PRN IV Hypoglycemia 09/30/20 02:30 12/29/20 02:29 Hydrocortisone (Solu-CORTEF) 100 mg EVERY 8 HOURS IV 09/30/20 14:00 12/29/20 13:59 10/15/20 05:53 Lansoprazole (Prevacid) 30 mg Q12HR NG 10/14/20 21:00 11/13/20 20:59 10/15/20 09:17 Levetiracetam 100 ml @ 400 mls/hr Q12HR IVPB 10/12/20 21:00 01/10/21 20:59 10/15/20 09:18 Meropenem 500 mg/ Sodium Chloride 55 ml @ 110 mls/hr EVERY 12 HOURS IVPB 10/11/20 10:00 10/18/20 23:59 10/15/20 09:18 Norepinephrine Bitartrate 16 mg/ Dextrose 500 ml @ 0 mls/hr Q24H PRN IV . 10/13/20 08:43 10/16/20 08:42 10/14/20 13:05 Potassium Chloride (K-Dur) 40 meq EVERY 12 HOURS NG 10/14/20 21:00 01/11/21 20:59 10/15/20 09:17 Assessment/Plan Assessment/Plan 1. Respiratory failure. 2. Multiple medical problems consisting of hypertension, thalassemia, chronic pancreatitis, GERD, neuropathy, and depression. 3. Shock; on pressors 4. Acute renal failure and metabolic acidosis 5. Lactic acidemia 6. AMS; CT brain negative 7. Thrombocytopenia DISCUSSION: Pt is now DNR. Currently the patient is intubated. s/p dialysis Now FiO2 30%, PEEP 5 -> has failed weaning trials Continue IV fluids. Pressors prn DVT and GI prophylaxis. Broad-spectrum antibiotics. We will follow carefully. Bicarb supplementation ABG adequate Discussed with family He remains DNR but intubation OK Will not extubate given poor mental status and pressor usage The care of this patient was discussed with my supervising physician Time spent for this encounter was approximately 31 minutes Dioni Coats Oct 15, 2020 11:27
--- NOTE | 2020-10-15 12:00 | NUR ---
NURSE NOTES: Dr Garza at bedside,informed re pt's distended and hard abdomen and feeding hold.ordered to resume feeding once NGT placement is confirmed.
--- NOTE | 2020-10-15 13:00 | NUR ---
NURSE NOTES: NGT insertion with [place] sump tube done,KUB ordered to confirm placement.
--- NOTE | 2020-10-15 13:27 | Neurology Progress Note ---
Interim History Interim History ROS Limited/Unobtainable: No Events: remains unchanged, plan to transfer to [place] Objective Physical Exam Last Vital Signs Date Time Temp Pulse Resp B/P (MAP) Pulse Ox O2 Delivery O2 Flow Rate FiO2 10/15/20 11:26 64 11 30 10/15/20 11:00 104/65 (78) 100 10/15/20 08:00 98.5 10/15/20 08:00 Mechanical Ventilator Neurologic Exam Objective Physical Exam: Limited due to patients status unresponsive comatose, Pupils are sluggish, pupils not reactive corneal reflex absent, gag reflex absent facial symmetric motor: involuntary movement in head and neck sensory responses to suctioning thru trach not to pain. Impression/Recommendations Status: unchanged Diagnostic Impression Imaging: EEG reviewed CT Head: No evidence of acute intracranial hemorrhage, mass effect or cortical edema. MRI recommended for more sensitive evaluation as clinically indicated. Atrophy and nonspecific periventricular hypoattenuation suggestive of chronic ischemic microvascular changes. Assessment And Rec's 1. Anoxic Encephalopathy --> EEG consistent with seizure activity --> S/p recent CODE Blue and intubation --> CT head reviewed as above --> chances of recovery are small, pt has a poor prognosis. Discussed with brother Brayan. 2. Abnormal EEG --> Possible subclinical seizure activity, it is not definitive --> Will start patient on presumptive seizure medication, Agree to continue with Keppra will increase to 1000mg IV BID 3. Acute hypoxemic respiratory failure --> s/p intubation on vent 4. Questionable Pneumonia vs other ---> on abx --> Covid Ag is NEGATIVE, PCR not detected 5. Anemia 6. FTT --> Supportive care 7. CKD --> HD 8. Ascites --> s/p paracentesis Thank you for allowing us to participate in patient's care, plan of care was discussed with Dr. Jose Armando Camarena who agrees and has reviewed EEG results. Stacy Hinds NP Oct 15, 2020 13:27
[2020-10-15] MEDS ORDERED: NOREPINEPHRINE BITARTRATE IV PRN (13:30)
[2020-10-15] MEDS ORDERED: D5W IV PRN (13:30)
--- NOTE | 2020-10-15 14:06 | Nephrology Progress Note ---
Assessment/Plan Problem List: (1) COURTNEY (acute kidney injury) (2) Cardiopulmonary arrest (3) Respiratory failure (4) Septic shock Assessment Acute renal failure Septic shock Acute respiratory failure CODE STATUS now DNR Plan October 15: No labs drawn today. Dialyzed yesterday. Will check lab tomorrow. Continue per current management. October 14: Labs reviewed. Discussed with Emelina ORR. Patient edematous. Scrotum edematous. Will arrange for hemodialysis and ultrafiltration with blood pressure support by increasing Levophed. Per orders. October 13: Labs reviewed. Discussed with KIRBY Sheldon.. Low potassium addressed. Dialyzed yesterday. Dialysis as needed. Weaning attempts versus tracheostomy per pulmonary. October 12: Labs reviewed. Discussed with KIRBY Tarango. Leukocytosis persists. Due for dialysis today. Patient DNR however remains intubated on ventilator. FiO2 30%. Continue per consultants. Continue dialysis as needed. October 11: Labs reviewed. Discussed with KIRBY Tarango. Leukocytosis persists. Low potassium addressed. Will order dialysis tomorrow. Continue per consultants. October 10: Patient was dialyzed yesterday. Today's labs reviewed. Abnormal electrolytes addressed. Medication list reviewed. Discussed with RN. Continue per consultants. October 09: Patient due for dialysis today. IV fluids stopped. Patient DNR. Abnormal electrolyte and the dialysis bath adjusted accordingly. Continue per consultants. October 08: Patient was last dialyzed yesterday. Intubated. DNR. Meds and labs reviewed. Potassium supplement given. Continue to monitor renal parameters and dialysis as needed. Patient remains only coanuric. October 07: Patient was dialyzed yesterday. Labs reviewed. Platelets low. Oozing from the site of the dialysis catheter. On low-dose of pressors. Will dialyze today. Will change Pepcid to Protonix IV. Will give DDAVP 50 mcg once. Discussed with KIRBY Tarango. October 06: Status unchanged. Seen in ICU. Discussed with RN. Dialysis catheter and dialysis procedure has not yet been done. Radiology to arrange for catheter insertion today followed by dialysis. Labs reviewed. Medication list reviewed. October 05: Status quo. Labs reviewed. Serum creatinine creeping up. Patient hemodynamically more stable today than a few days ago. Called brother and he is agreeable for a trial of dialysis treatment with the hope to reverse the acute component of the renal failure. Nontunneled catheter placement ordered. Dialysis ordered. Continue to monitor renal parameters. Medication list reviewed. Discussed with RN and charge nurse. October 04: Status quo. Intubated on ventilator. Labs reviewed. Serum creatinine is plateauing. Trial of Zaroxolyn and 25% albumin infusion given. Abnormal electrolytes addressed. Continue as is. October 03: Continues to be on 6 mics of Levophed. Urine output 350 cc past 24 hours. No urine output since this morning. Labs reviewed. Discussed with KIRBY Diallo. Albumin bolus given. Zaroxolyn 1 dose ordered. Serum creatinine appears to be leveling off. Continue to monitor renal parameters. Patient DNR. October 02: Remains on low-dose pressors today almost anuric. Discussed with KIRBY Shook. Labs reviewed. Medication list reviewed. Trial of albumin and Lasix. Continue to monitor renal parameters. Patient DNR. FiO2 40% October 01: Patient clinically more stable. Discussed with KIRBY Tarango. Patient off pressors. ABG improved. Serum creatinine worse. Will start the patient on Bicitra and allopurinol through NG tube. Continue to monitor renal parameters. Per orders. Patient currently DNR. Previously: Pulmonary support Pressors Antibiotics Hydrocortisone Per orders Subjective ROS Limited/Unobtainable: Yes Objective Objective Last 24 Hour Vital Signs Date Time Temp Pulse Resp B/P (MAP) Pulse Ox O2 Delivery O2 Flow Rate FiO2 10/15/20 13:00 70 30 112/68 (83) 100 10/15/20 12:00 Mechanical Ventilator 10/15/20 12:00 30 10/15/20 12:00 98.5 64 35 102/65 (77) 100 10/15/20 11:26 64 11 30 10/15/20 11:00 79 16 104/65 (78) 100 10/15/20 11:00 104/65 10/15/20 10:00 73 27 105/67 (80) 100 10/15/20 10:00 105/67 10/15/20 09:00 78 30 107/65 (79) 100 10/15/20 09:00 107/65 10/15/20 08:00 30 10/15/20 08:00 98.5 92 23 107/73 (84) 100 10/15/20 08:00 107/73 10/15/20 08:00 76 10/15/20 08:00 Mechanical Ventilator 10/15/20 07:15 91 22 109/70 (83) 100 10/15/20 07:11 84 14 30 10/15/20 07:00 87 15 101/70 (80) 100 10/15/20 07:00 101/70 10/15/20 06:45 96 20 106/68 (81) 100 10/15/20 06:30 95 19 107/66 (80) 10/15/20 06:30 94 18 10/15/20 06:15 93 20 105/66 (79) 100 10/15/20 06:00 104 23 104/71 (82) 100 10/15/20 06:00 105/66 10/15/20 05:45 98 22 99/68 (78) 10/15/20 05:30 100 20 101/70 (80) 10/15/20 05:23 101 16 30 10/15/20 05:15 105 16 102/67 (79) 10/15/20 05:00 102/67 10/15/20 05:00 98 14 106/71 (83) 10/15/20 04:45 92 15 107/68 (81) 10/15/20 04:30 96 14 101/66 (78) 10/15/20 04:19 97.5 94 18 100/66 (77) 100 10/15/20 04:00 30 10/15/20 04:00 94 18 100/66 (77) 100 10/15/20 04:00 106/66 10/15/20 04:00 Mechanical Ventilator 10/15/20 04:00 90 10/15/20 03:45 96 16 101/66 (78) 10/15/20 03:30 97 15 107/73 (84) 100 10/15/20 03:30 93 14 30 10/15/20 03:15 88 15 116/71 (86) 100 10/15/20 03:00 112/65 10/15/20 03:00 93 24 125/89 (101) 10/15/20 02:45 98 23 107/67 (80) 10/15/20 02:30 102 23 119/72 (88) 10/15/20 02:15 84 30 113/67 (82) 10/15/20 02:00 91 28 109/69 (82) 100 10/15/20 02:00 116/67 10/15/20 01:45 87 21 113/68 (83) 100 10/15/20 01:30 81 28 111/70 (84) 100 10/15/20 01:30 81 14 30 10/15/20 01:15 79 20 115/70 (85) 99 10/15/20 01:00 82 22 113/68 (83) 99 10/15/20 01:00 104/64 10/15/20 00:45 89 21 113/72 (86) 10/15/20 00:30 81 17 110/72 (85) 10/15/20 00:15 81 26 113/65 (81) 10/15/20 00:00 69 10/15/20 00:00 Mechanical Ventilator 10/15/20 00:00 113/65 10/15/20 00:00 30 10/15/20 00:00 97.5 81 22 110/70 (83) 10/14/20 23:45 87 29 112/62 (79) 10/14/20 23:30 96 25 119/71 (87) 10/14/20 23:26 94 16 30 10/14/20 23:15 80 31 111/68 (82) 10/14/20 23:00 111/77 10/14/20 23:00 86 17 113/67 (82) 10/14/20 22:45 83 27 112/70 (84) 10/14/20 22:30 86 31 115/72 (86) 10/14/20 22:15 89 26 114/69 (84) 99 10/14/20 22:00 96 26 110/70 (83) 98 10/14/20 22:00 113/66 10/14/20 21:45 79 25 113/65 (81) 99 10/14/20 21:30 71 12 30 10/14/20 21:30 77 17 109/63 (78) 98 10/14/20 21:15 82 18 110/71 (84) 98 10/14/20 21:00 80 25 109/69 (82) 99 10/14/20 21:00 106/71 10/14/20 20:50 90 17 95/61 (72) 100 10/14/20 20:40 91 16 98/60 (73) 99 10/14/20 20:30 91 17 96/61 (73) 99 10/14/20 20:20 90 17 96/55 (69) 99 10/14/20 20:10 94 17 101/60 (74) 99 10/14/20 20:00 93 18 99/60 (73) 99 10/14/20 20:00 77 10/14/20 20:00 96/69 10/14/20 20:00 30 10/14/20 20:00 Mechanical Ventilator 10/14/20 19:55 98 17 101/63 (76) 99 10/14/20 19:50 91 15 98/62 (74) 100 10/14/20 19:45 92 17 104/62 (76) 99 10/14/20 19:40 92 17 101/60 (74) 99 10/14/20 19:35 92 17 102/62 (75) 99 10/14/20 19:30 90 16 30 10/14/20 19:30 97 17 100/63 (75) 99 10/14/20 19:25 92 17 101/64 (76) 100 10/14/20 19:20 90 16 102/63 (76) 100 10/14/20 19:15 91 16 106/67 (80) 100 10/14/20 19:10 92 16 107/68 (81) 100 10/14/20 19:05 93 17 107/69 (82) 100 10/14/20 19:00 92 18 113/72 (86) 100 10/14/20 19:00 107/68 10/14/20 18:55 80 24 112/72 (85) 100 10/14/20 18:50 88 34 113/69 (84) 100 10/14/20 18:45 76 22 113/69 (84) 100 10/14/20 18:30 88 17 111/72 (85) 99 10/14/20 18:00 94 31 123/73 (90) 100 10/14/20 18:00 123/73 10/14/20 17:30 82 14 118/64 (82) 100 10/14/20 17:00 75 21 116/72 (87) 100 10/14/20 17:00 116/72 10/14/20 16:30 69 20 112/72 (85) 100 10/14/20 16:02 80 10/14/20 16:00 97.0 83 14 119/66 (83) 100 10/14/20 16:00 30 10/14/20 16:00 119/66 10/14/20 16:00 Mechanical Ventilator 10/14/20 15:44 85 14 30 10/14/20 15:30 95 23 114/73 (87) 99 10/14/20 15:00 100 19 112/75 (87) 98 10/14/20 15:00 112/75 10/14/20 14:30 83 14 118/75 (89) 99 Intake and Output 10/14/20 10/15/20 19:00 07:00 Intake Total 933.75 ml 970 ml Output Total 10 ml 120 ml Balance 923.75 ml 850 ml Free Water 100 ml IV Total 333.75 ml 390 ml Tube Feeding 480 ml 480 ml Other 120 ml Output Urine Total 10 ml 20 ml Stool Total 100 ml # Voids 5 # Bowel Movements 50 No labs drawn today Height (Feet): 6 Height (Inches): 8.00 Weight (Pounds): 165 General Appearance: no apparent distress Cardiovascular: normal rate Respiratory/Chest: decreased breath sounds Abdomen: distended Angel Whitehead MD Oct 15, 2020 14:06
--- NOTE | 2020-10-15 14:30 | NUR ---
NURSE NOTES: Seen by Dr Hutton,updated re pt's status.
--- NOTE | 2020-10-15 14:53 | NUR ---
INSURANCE CLINICALS FAXED TO [place] CM: [phone] and [phone]
--- NOTE | 2020-10-15 16:00 | NUR ---
NURSE NOTES: KUB results showed NGT in placed,tube feeding resumed per Dr Garza order.
--- NOTE | 2020-10-15 16:26 | Diagnostic Imaging Report ---
EXAM: XRAY Abdomen 1v HISTORY: NG tube placement COMPARISON: None. TECHNIQUE: 2 view of the abdomen obtained. FINDINGS: There is an NG tube in the stomach. Bowel gas pattern is unremarkable. No definite pathologic calcifications identified. There is no sign of free air. No acute abnormality noted of the visualized osseous structures. IMPRESSION: NG TUBE IN STOMACH. NO SIGN OF ACUTE DISEASE.
--- NOTE | 2020-10-15 16:40 | General Progress Note ---
Subjective ROS Limited/Unobtainable: No Allergies: Coded Allergies: No Known Allergies (Unverified , 09/13/20) Objective Last 24 Hour Vital Signs Date Time Temp Pulse Resp B/P (MAP) Pulse Ox O2 Delivery O2 Flow Rate FiO2 10/15/20 16:03 106/70 10/15/20 16:00 30 10/15/20 16:00 Mechanical Ventilator 10/15/20 16:00 98.0 66 26 109/88 (95) 100 10/15/20 15:00 65 31 106/70 (82) 100 10/15/20 14:00 75 21 103/69 (80) 100 10/15/20 13:00 70 30 112/68 (83) 100 10/15/20 12:00 Mechanical Ventilator 10/15/20 12:00 30 10/15/20 12:00 62 10/15/20 12:00 98.5 64 35 102/65 (77) 100 10/15/20 11:26 64 11 30 10/15/20 11:00 79 16 104/65 (78) 100 10/15/20 11:00 104/65 10/15/20 10:00 73 27 105/67 (80) 100 10/15/20 10:00 105/67 10/15/20 09:00 78 30 107/65 (79) 100 10/15/20 09:00 107/65 10/15/20 08:00 30 10/15/20 08:00 98.5 92 23 107/73 (84) 100 10/15/20 08:00 107/73 10/15/20 08:00 76 10/15/20 08:00 Mechanical Ventilator 10/15/20 07:15 91 22 109/70 (83) 100 10/15/20 07:11 84 14 30 10/15/20 07:00 87 15 101/70 (80) 100 10/15/20 07:00 101/70 10/15/20 06:45 96 20 106/68 (81) 100 10/15/20 06:30 95 19 107/66 (80) 10/15/20 06:30 94 18 10/15/20 06:15 93 20 105/66 (79) 100 10/15/20 06:00 104 23 104/71 (82) 100 10/15/20 06:00 105/66 10/15/20 05:45 98 22 99/68 (78) 10/15/20 05:30 100 20 101/70 (80) 10/15/20 05:23 101 16 30 10/15/20 05:15 105 16 102/67 (79) 10/15/20 05:00 102/67 10/15/20 05:00 98 14 106/71 (83) 10/15/20 04:45 92 15 107/68 (81) 10/15/20 04:30 96 14 101/66 (78) 10/15/20 04:19 97.5 94 18 100/66 (77) 100 10/15/20 04:00 30 10/15/20 04:00 94 18 100/66 (77) 100 10/15/20 04:00 106/66 10/15/20 04:00 Mechanical Ventilator 10/15/20 04:00 90 10/15/20 03:45 96 16 101/66 (78) 10/15/20 03:30 97 15 107/73 (84) 100 10/15/20 03:30 93 14 30 10/15/20 03:15 88 15 116/71 (86) 100 10/15/20 03:00 112/65 10/15/20 03:00 93 24 125/89 (101) 10/15/20 02:45 98 23 107/67 (80) 10/15/20 02:30 102 23 119/72 (88) 10/15/20 02:15 84 30 113/67 (82) 10/15/20 02:00 91 28 109/69 (82) 100 10/15/20 02:00 116/67 10/15/20 01:45 87 21 113/68 (83) 100 10/15/20 01:30 81 28 111/70 (84) 100 10/15/20 01:30 81 14 30 10/15/20 01:15 79 20 115/70 (85) 99 10/15/20 01:00 82 22 113/68 (83) 99 10/15/20 01:00 104/64 10/15/20 00:45 89 21 113/72 (86) 10/15/20 00:30 81 17 110/72 (85) 10/15/20 00:15 81 26 113/65 (81) 10/15/20 00:00 69 10/15/20 00:00 Mechanical Ventilator 10/15/20 00:00 113/65 10/15/20 00:00 30 10/15/20 00:00 97.5 81 22 110/70 (83) 10/14/20 23:45 87 29 112/62 (79) 10/14/20 23:30 96 25 119/71 (87) 10/14/20 23:26 94 16 30 10/14/20 23:15 80 31 111/68 (82) 10/14/20 23:00 111/77 10/14/20 23:00 86 17 113/67 (82) 10/14/20 22:45 83 27 112/70 (84) 10/14/20 22:30 86 31 115/72 (86) 10/14/20 22:15 89 26 114/69 (84) 99 10/14/20 22:00 96 26 110/70 (83) 98 10/14/20 22:00 113/66 10/14/20 21:45 79 25 113/65 (81) 99 10/14/20 21:30 71 12 30 10/14/20 21:30 77 17 109/63 (78) 98 10/14/20 21:15 82 18 110/71 (84) 98 10/14/20 21:00 80 25 109/69 (82) 99 10/14/20 21:00 106/71 10/14/20 20:50 90 17 95/61 (72) 100 10/14/20 20:40 91 16 98/60 (73) 99 10/14/20 20:30 91 17 96/61 (73) 99 10/14/20 20:20 90 17 96/55 (69) 99 10/14/20 20:10 94 17 101/60 (74) 99 10/14/20 20:00 93 18 99/60 (73) 99 10/14/20 20:00 77 10/14/20 20:00 96/69 10/14/20 20:00 30 10/14/20 20:00 Mechanical Ventilator 10/14/20 19:55 98 17 101/63 (76) 99 10/14/20 19:50 91 15 98/62 (74) 100 10/14/20 19:45 92 17 104/62 (76) 99 10/14/20 19:40 92 17 101/60 (74) 99 10/14/20 19:35 92 17 102/62 (75) 99 10/14/20 19:30 90 16 30 10/14/20 19:30 97 17 100/63 (75) 99 10/14/20 19:25 92 17 101/64 (76) 100 10/14/20 19:20 90 16 102/63 (76) 100 10/14/20 19:15 91 16 106/67 (80) 100 10/14/20 19:10 92 16 107/68 (81) 100 10/14/20 19:05 93 17 107/69 (82) 100 10/14/20 19:00 92 18 113/72 (86) 100 10/14/20 19:00 107/68 10/14/20 18:55 80 24 112/72 (85) 100 10/14/20 18:50 88 34 113/69 (84) 100 10/14/20 18:45 76 22 113/69 (84) 100 10/14/20 18:30 88 17 111/72 (85) 99 10/14/20 18:00 94 31 123/73 (90) 100 10/14/20 18:00 123/73 10/14/20 17:30 82 14 118/64 (82) 100 10/14/20 17:00 75 21 116/72 (87) 100 10/14/20 17:00 116/72 Intake and Output 10/14/20 10/15/20 19:00 07:00 Intake Total 933.75 ml 970 ml Output Total 10 ml 120 ml Balance 923.75 ml 850 ml Free Water 100 ml IV Total 333.75 ml 390 ml Tube Feeding 480 ml 480 ml Other 120 ml Output Urine Total 10 ml 20 ml Stool Total 100 ml # Voids 5 # Bowel Movements 50 Height (Feet): 6 Height (Inches): 8.00 Weight (Pounds): 165 General Appearance: no apparent distress EENT: normal ENT inspection Neck: supple Cardiovascular: normal rate Respiratory/Chest: decreased breath sounds Abdomen: normal bowel sounds, hypoactive bowel sounds, distended Extremities: non-tender Assessment/Plan Status: unchanged Assessment/Plan: 1. History of thalassemia. 2. Hypertension. 3. Chronic pancreatitis. 4. Dyslipidemia. 5. Atherosclerosis. 6. GERD. 7. Renal cyst. 8. Peripheral neuropathy. 9. History of colonic polyps. 10. Depression. 11. respiratory failure 12. renal failure 13 anemia 14.ascites ngtf s/p paracentesis repeat labs hepatitis panel>> Neg Nando Lyles MD Oct 15, 2020 16:40
--- NOTE | 2020-10-15 18:00 | NUR ---
NURSE NOTES: Called DR Hutton ,for discharge orders,pt has a bed in [facility]Dr Hutton Okayed discharge.
--- NOTE | 2020-10-15 18:23 | NUR ---
NURSE NOTES: Patient's brother ( Brayan Vargas) made aware that patient is going to be transferred tonight at @ 2100 to [facility] ICU room # 3830. Phone number to [place] given to him [phone]
--- NOTE | 2020-10-15 18:41 | Internal Med Progress Note ---
Subjective Physician Name Ken Hutton Attending Physician Ken Hutton MD Current Medications Medications (Trade) Dose Ordered Sig/Alfredo Route PRN Reason Start Time Stop Time Status Last Admin Dose Admin Acetaminophen (Tylenol) 650 mg EVERY 6 HOURS PRN NG Temp >100.5 09/30/20 02:30 10/30/20 02:29 Chlorhexidine Gluconate (Babita-Hex 2%) 1 applic DAILY@2000 TOPIC 09/30/20 20:00 12/29/20 19:59 10/14/20 20:23 Dextrose (Dextrose 50%) 25 ml Q30M PRN IV Hypoglycemia 09/30/20 02:30 12/29/20 02:29 Dextrose (Dextrose 50%) 50 ml Q30M PRN IV Hypoglycemia 09/30/20 02:30 12/29/20 02:29 Hydrocortisone (Solu-CORTEF) 100 mg EVERY 8 HOURS IV 09/30/20 14:00 12/29/20 13:59 10/15/20 14:02 Lansoprazole (Prevacid) 30 mg Q12HR NG 10/14/20 21:00 11/13/20 20:59 10/15/20 09:17 Levetiracetam 100 ml @ 400 mls/hr Q12HR IVPB 10/12/20 21:00 01/10/21 20:59 10/15/20 09:18 Meropenem 500 mg/ Sodium Chloride 55 ml @ 110 mls/hr EVERY 12 HOURS IVPB 10/11/20 10:00 10/18/20 23:59 10/15/20 09:18 Norepinephrine Bitartrate 8 mg/ Dextrose 258 ml @ 0 mls/hr Q24H PRN IV . 10/15/20 13:30 10/19/20 13:29 10/15/20 16:03 Potassium Chloride (K-Dur) 40 meq EVERY 12 HOURS NG 10/14/20 21:00 01/11/21 20:59 10/15/20 09:17 Allergies: Coded Allergies: No Known Allergies (Unverified , 09/13/20) Subjective in ICU, intubated, unresponsive, remained on ventilation, no more involuntary head moving. Objective Last Vital Signs Date Time Temp Pulse Resp B/P (MAP) Pulse Ox O2 Delivery O2 Flow Rate FiO2 10/15/20 18:00 75 26 111/72 (85) 100 10/15/20 16:00 30 10/15/20 16:00 Mechanical Ventilator 10/15/20 16:00 98.0 Laboratory Tests Test 10/15/20 16:55 Arterial Blood pH 7.447 (7.350-7.450) Arterial Blood Partial Pressure CO2 33.6 mmHg (35.0-45.0) L Arterial Blood Partial Pressure O2 96.0 mmHg (75.0-100.0) Arterial Blood HCO3 22.7 mmol/L (22.0-26.0) Arterial Blood Oxygen Saturation 96.7 % (95-100) Arterial Blood Base Excess -1.0 (-2-2) Onesimo Test Positive Microbiology Date/Time Source Procedure Growth Status 10/13/20 11:55 Abdominal Fluid Gram Stain - Final Resulted 10/13/20 11:55 Abdominal Fluid Body Fluid Culture - Preliminary NO GROWTH AFTER 24 HOURS Resulted Intake and Output 10/14/20 10/15/20 19:00 07:00 Intake Total 933.75 ml 970 ml Output Total 10 ml 120 ml Balance 923.75 ml 850 ml Free Water 100 ml IV Total 333.75 ml 390 ml Tube Feeding 480 ml 480 ml Other 120 ml Output Urine Total 10 ml 20 ml Stool Total 100 ml # Voids 5 # Bowel Movements 50 Objective General Appearance: In Ventilation, unresponsive, lethargic, unable to F/U with Commands. Lines, tubes and drains: central line - R IJ,and dialysis catheter -left IJ. HEENT: normocephalic, atraumatic,Pupils are 2 mm and sluggish reaction to light, ET tube, NGT. Neck: Supple, No JVD. Respiratory/Chest: Mechanical breath sound, No wheeze or rales. Cardiovascular/Chest: S1, S2 RR, No Murmur. Abdomen: Soft not distended, no mass, hypoactive bowel sounds Extremities: +2 extremities edema. Neurologic: Limited due to patient status, unresponsiveness, Facette X 4 extremities. Assessment/Plan Assessment/Plan 75 y/o Male admitted to the Hospital with; # AMS # Anoxic encephalopathy # Acute hypoxemic respiratory failure # Respiratory acidosis. ABG monitoring. Intubation in the ER Pulmonary/ICU wtih Dr. Benavidez Renal consultation with Dr. Estrada. Add CT head wo contrast to rule out bleed vs other completing today. On route. EEG ordered today as no prior order found. Concern for anoxic brain injury. Seizure disorder # Pneumonia #Septic Shock ID consultation with Dr. Ricketts Abx: Dc vancomycin IV and Keep meropenem IV. Follow up lactate and wbc, cultures # Thalassemia #COURTNEY on HD Supportive care Consider Hematology follow up as needed Continue keppra per neurology. # FTT - anorexia and weight loss Supportive care Tube feeding on Hold. DNR DVT ppx GI ppx transferred to [facility] to the [facility]. Ken Hutton MD Oct 15, 2020 18:41
--- NOTE | 2020-10-15 19:18 | NUR ---
NURSE HAND-OFF REPORT: Latest Vital Signs: Temperature 98.0 , Pulse 75 , B/P 111 /72 , Respiratory Rate 26 , O2 SAT 100 , Mechanical Ventilator, O2 Flow Rate 100.0 . Vital Sign Comment: stable EKG Rhythm: Sinus Rhythm Rhythm change?: N MD Notified?: N - MD Response: Latest Carty Fall Score: 50 Fall Risk: High Risk Safety Measures: Call light Within Reach, Bed Alarm Zone 1, Side Rails Side Rails x3, Bed position Low and Locked. Fall Precautions: Yellow Socks Door Sign Patient Fall Education Report given to Amber Nayak RN.Pt for discharge tonight at [address] [facility]
--- NOTE | 2020-10-15 19:20 | NUR ---
NURSE NOTES: Rn received report from Svetlana ORR. Patient will be transferred to [place] at 9Pm. RN will call report.
[2020-10-15] MEDS: Dyna-Hex 2% Top Sol 2oz TOPIC SCH (20:15)
--- NOTE | 2020-10-15 20:24 | NUR ---
NURSE NOTES: RN gave report to Sonia ORR @[facility]. RN awaiting transport. RN will continue to monitor.
--- NOTE | 2020-10-15 21:37 | NUR ---
NURSE NOTES: pATIENT PICKED UP BY CRITICAL TRANSPORT VIA AMBULANCE TO [facility]. REPORT GIVEN ALONG PATIENTS INFO AND PACKET. pATIENT TRANSFERRED TO [facility]. PATIENT STABLE AT TIME OF DISCHARGE.
[2020-10-15] MEDS ORDERED: Tubing IV Blood Pump IV ONE (22:07)
[2020-10-15] MEDS ORDERED: Sterile Water Irrig 1000ml IRRIG ONE (22:07)
[2020-10-15] MEDS ORDERED: NS 275ml ONE ×2 (22:07)
[2020-10-15] MEDS ORDERED: Tubing IV Secondary IV ONE ×2 (22:07)
[2020-10-16] MEDS ORDERED: Norepinephrine Bitartrate 16 MG in D5W 500ml 484 ML IV PRN (08:43)
--- NOTE | 2020-10-18 12:36 | Discharge Summary ---
Discharge Summary Discharge Summary _ Date of admission: 09/30/2020 Date of discharge: 10/15/[address] Hutton History of Present Illness and Brief Hospital Course Mr. Vargas is a 75-year-old male with past medical history of protein calorie malnutrition, thalassemia, hypertension, chronic pancreatitis, dyslipidemia, atherosclerosis, GERD, acquired complex renal cyst, peripheral neuropathy, colonic polyps, and major depression, who presented from [facility] for evaluation of altered mental status. Patient had GCS of 8, and agonal respirations. The POLST form dating 09/16/20 for DNR/DNI was noted but there was no MD signature and therefore it was incomplete and invalid. Patient was hypoxic with thready pulse. Patient went pulseless on transfer from [facility] to ER [facility] and therefore high-quality CPR was initiated and performed via ACLS guidelines. Patient was noted to be in pulseless V. tach. Patient achieved ROSC after the administration of amiodarone, epinephrine, bicarb, calcium and magnesium. Patient was intubated with RSI for respiratory failure and was started on Levophed drip via right IJ central line for vasopressor support. Propofol drip was used for sedation. Bedside echocardiogram showed a depressed ejection fraction and ventricular ectopy. There was no radiographic evidence of tamponade or pericardial effusion. EKG showed sinus tachycardia. Labs showed a lactic/metabolic acidosis, renal failure, and pancytopenia. Patient was noted to have elevated BNP but troponin is negative. Chest x-ray showed bibasilar atelectasis versus effusions versus pneumonia. COVID-19 rapid test was negative. Sepsis bundle was initiated on arrival. Patient was started on empiric antibiotics. Patient was admitted to the hospital for further care and evaluation. Soon after admission, patient's brother was contacted who requested the CODE STATUS to be DNR. Given clinical presentation consistent with anoxic encephalopathy, EEG was ordered. EEG revealed short waves consistent with seizure activity. CT of head demonstrated no evidence of acute intracranial hemorrhage, mass-effect or cortical edema. Patient was started on Keppra. Patient was continued on antibiotics given lactic acidosis and leukocytosis. Sputum culture showed growth of Klebsiella pneumoniae and Staph aureus. Antibiotics were adjusted accordingly. Given thrombocytopenia, patient was transfused with platelets. Given worsening renal failure, dialysis catheter was placed. Patient was dialyzed at regular intervals. Given the distended abdomen, patient underwent abdominal CT which showed large volume ascites, bilateral pleural effusions, and extensive bilateral lower lobe consolidation, likely pneumonia. Patient underwent paracentesis and 5.2 L of fluid was removed. Throughout his hospitalization, patient was treated for sepsis, and ascites. Patient was stabilized and was transferred to [place] for insurance purposes. Consultants: Neurology Stacy Hinds NP Gastroenterology Dr. Lyles Surgery Dr. Walker Pulmonology Dr. Benavidez Nephrology Dr. Lam Infectious disease Dr. Ricketts Hematology oncology Dr. Ponce Discharge Condition Stable Final diagnoses Thrombocytopenia Leukocytosis Anemia due to chronic disease Anoxic encephalopathy Acute hypoxemic respiratory failure Staph epidermidis bacteremia Lactic acidosis Thalassemia Pancytopenia Hyperlipidemia Hypertension Depression Respiratory acidosis Acute kidney injury Cardiopulmonary arrest Septic shock Ascites CKD History of GERD I have been assigned to dictate discharge summary for this account. Dioni Coats Oct 18, 2020 12:36
== END 2020-10-15 22:08 | disposition short-term general hospital (02) | DRG 870 ==
LOC: EDBD 22:05 → EMR 22:16 → EDBEDREQ 22:49 → ICU 09-30 01:00 → EDBEDREQ 09-30 01:11
PROC: 5A12012 Performance of Cardiac Output, Single, Manual (ICD-10-PCS; principal; 2020-09-30)
PROC: 5A1955Z Respiratory Ventilation, Greater than 96 Consecutive Hours (ICD-10-PCS; principal; 2020-09-30)
PROC: 0BH17EZ Insertion of Endotracheal Airway into Trachea, Via Natural or Artificial Opening (ICD-10-PCS; principal; 2020-09-30)
PROC: 05HM33Z Insertion of Infusion Device into Right Internal Jugular Vein, Percutaneous Approach (ICD-10-PCS; principal; 2020-09-30)
PROC: 02HV33Z Insertion of Infusion Device into Superior Vena Cava, Percutaneous Approach (ICD-10-PCS; 2020-10-06)
PROC: 5A1D70Z Performance of Urinary Filtration, Intermittent, Less than 6 Hours Per Day (ICD-10-PCS; 2020-10-09)
PROC: 30233R1 Transfusion of Nonautologous Platelets into Peripheral Vein, Percutaneous Approach (ICD-10-PCS; 2020-10-12)
PROC: 0W9G3ZZ Drainage of Peritoneal Cavity, Percutaneous Approach (ICD-10-PCS; 2020-10-13)
DX: A41.9 Sepsis, unspecified organism (principal); J96.00 Acute respiratory failure, unspecified whether with hypoxia or hypercapnia; R65.21 Severe sepsis with septic shock; J18.9 Pneumonia, unspecified organism; I46.9 Cardiac arrest, cause unspecified; J96.01 Acute respiratory failure with hypoxia; D61.818 Other pancytopenia; N17.9 Acute kidney failure, unspecified; K86.1 Other chronic pancreatitis; E87.0 Hyperosmolality and hypernatremia; J98.11 Atelectasis; G93.1 Anoxic brain damage, not elsewhere classified; R18.8 Other ascites; E78.5 Hyperlipidemia, unspecified; D56.9 Thalassemia, unspecified; R62.7 Adult failure to thrive; Z66 Do not resuscitate; I25.10 Atherosclerotic heart disease of native coronary artery without angina pectoris; D63.8 Anemia in other chronic diseases classified elsewhere; I12.9 Hypertensive chronic kidney disease with stage 1 through stage 4 chronic kidney disease, or unspecified chronic kidney disease; N18.9 Chronic kidney disease, unspecified; F32.9 Major depressive disorder, single episode, unspecified; G62.9 Polyneuropathy, unspecified; K21.9 Gastro-esophageal reflux disease without esophagitis; H40.9 Unspecified glaucoma; R13.10 Dysphagia, unspecified; Z86.010 Personal history of colon polyps; N28.1 Cyst of kidney, acquired; B96.1 Klebsiella pneumoniae [K. pneumoniae] as the cause of diseases classified elsewhere; B95.8 Unspecified staphylococcus as the cause of diseases classified elsewhere
CPT/HCPCS: 31500; 36415; 36569; 70450; 71045; 74018; 74176; 76700; 76937; 76942; 80053; 80061; 80202; 81003; 82140; 82248; 82550; 82607; 82728; 82746; 82803; 82962; 82977; 83036; 83540; 83550; 83605; 83615; 83690; 83735; 83880; 84100; 84443; 84478; 84484; 84550; 85007; 85025; 85379; 85610; 85730; 86140; 86703; 86705; 86706; 86709; 86803; 86850; 86900; 86901; 87040; 87070; 87081; 87086; 87181; 87205; 87324; 87340; 89051; 92950; 93005; 93306; 94002; 94003; 95819; 96361; 96365; 96367; 99291; G0378; J2765; J7030; J8499